=== PATIENT | male | born 1950 | race Caucasian/White ===

== ENCOUNTER 2025-03-16 14:22 | Outpatient (AMB) | payer BC, SELFPAY ==
[2025-03-16 14:35] VITALS: BP 107/70; PULSE 90; O2SAT 96; BMI 23.1
--- NOTE | 2025-03-16 14:35 | MHC.OFFVIS ---
Vital Signs 03/16/25 14:35 Height 5 ft 11 in Weight 166 lb BMI 23.1 BP 107/70 Blood Pressure Location Lt brachial Position Sitting Pulse 90 Pulse Source Pulse Oximeter Pulse Oximetry (%) 96 Oxygen Delivery Method Room Air Intake Visit Reasons: Chronic midline back pain Supervisor Felling Bucking Required: No Allergies No Known Allergies Allergy (Verified 02/22/25 14:36) HPI Comments Details: Sly is very pleasant 74 years old gentleman who presents in my office with complains on to pain generators: He complains on pain in the lower lumbar spine as well as pain in the left shoulder. She reports that pain in the back is bothering him the most. He reports that shoulder pain he received steroid injection in the office and this alleviated his pain for 1 month. His most severe pain is in the lower back and this problem he wants to address today. He reports this pain is most severe with standing and walking. Denies pain increase with coughing and sneezing. He denies pelvic organ dysfunction. He is unable to do activities of daily living, he is able to sleep normally, he can take care of himself but he can not function normally. He is retired individual. He has need walker and cane for ambulation. Movements aggravate his pain. Heat and oral medication including oxycodone helps his pain moderately. Terms of tissue damage he reports his pain as tight squeezing and tearing sensation. He had x-ray radiology report performed for the lumbar spine which was done on 10/01/2024. It demonstrated diffuse osteopenia chronic compression deformity at L2 severe compression deformity superior endplate at L1 mild superior endplate compression deformity at L3 which is likely chronic. There is also mild compression deformity of the superior endplate L5 diffuse degenerative changes are noted which are worse in the lower lumbar spine. He had chiropractic manipulations to help his pain he received minimal results. Also had acupuncture to treat his pain also results were minimal. He continues to home exercise program, he wants to try physical therapy. He never received any injections in the back. His past medical history significant for headaches shortness of breath history of lung cancer history of squamous cell carcinoma of the skin history of kidney stones. 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 Past surgical history significant for lobectomy on the left side. He stopped smoking cigarettes he used to smoke 2 packs per day, he denies drinking alcohol he drinks coffee and soda and he denies recreational drugs. Review of Systems Const All systems reviewed & are unremarkable except as noted in HPI and below ENT Reports Normal hearing present Neuro Reports Normal hearing present, Denies Abnormal speech present, Denies confusion and Denies Sensory deficit (Neuro) Psych Denies confusion Physical Exam Vital Signs: Last Vital Signs Pulse 90 03/16/25 14:35 BP 107/70 03/16/25 14:35 Pulse Ox 96 03/16/25 14:35 Oxygen Delivery Method Room Air 03/16/25 14:35 BMI result Body Mass Index 23.1 Const General: no acute distress; No confusion Nutritional Appearance: malnourished and underweight Orientation/consciousness: patient oriented x3 and No confusion Limitations: physical limitations, ambulation with cane and ambulation with walker Eyes General: appearance normal, both eyes and all related structures Pupils: Equal, round and reactive pupils present EOM: EOMs intact bilaterally Neck Neck: Yes full ROM Chest Chest palpation & inspection: normal inspection of the chest Resp Effort & Inspection: normal respiratory effort, able to speak in complete sentences, normal respiratory pattern, no audible wheezes and no cough Cardio Jugular venous distension: no JVD GI Inspection: Yes normal to inspection Back/Spine/Pelvis Other: Flexing forward and flexing backwards aggravate his pain. Flexing backwards aggravate his pain more than flexing forward. Denies pelvic organ dysfunction. Valsalva maneuver is negative for pain increase. Tenderness on palpation in paraspinal spinal region of most lower portion of the lumbar spine. Neuro General: patient oriented x3, gait normal and No confusion Cranial nerves: Yes CN's II-XII intact bilaterally, Yes Equal, round and reactive pupils present, Yes Normal hearing present and Yes Ability to bilaterally elevate shoulders present Speech: No Abnormal speech present Gait exam (Neuro): Normal gait present Motor exam (neuro): 5/5 motor strength present throughout Sensory Exam: No Sensory deficit (Neuro) Extrem General: No pedal edema Psych Speech and movement: Normal speech and movement present Affect: normal affect Attitude: cooperative Thought process: Normal thought process present Thought content: Normal thought content present Insight: Good insight present (Psych) Judgement: Good judgement present (Psych) Results Reviewed Results Reviewed: He had x-ray radiology report performed for the lumbar spine which was done on 10/01/2024. It demonstrated diffuse osteopenia chronic compression deformity at L2 severe compression deformity superior endplate at L1 mild superior endplate compression deformity at L3 which is likely chronic. There is also mild compression deformity of the superior endplate L5 diffuse degenerative changes are noted which are worse in the lower lumbar spine. Assessment & Plan Assessment & Plan (1) Compression fracture of L1 vertebra with delayed healing: Code(s): S32.010G - Wedge compression fracture of first lumbar vertebra, subsequent encounter for fracture with delayed healing Category: Medical (2) Spondylosis without myelopathy or radiculopathy, lumbar region: Code(s): M47.816 - Spondylosis without myelopathy or radiculopathy, lumbar region Category: Medical (3) Chronic pain syndrome: Code(s): G89.4 - Chronic pain syndrome Category: Medical (4) Osteoporosis: Code(s): M81.0 - Age-related osteoporosis without current pathological fracture Category: Medical Plan Spondylosis of the lumbar spine is diagnosis of this patient. I will also need to make sure that none of his compression fractures are acute. I will send him for the MRI of the lumbar spine. I will schedule him for the bilateral diagnostic medial branch block L3, L4, dorsal ramus L5. I will see him immediately after the injection and offer definitive treatment if results will be encouraging. Also because of severe advanced osteoporosis I will refer him to the endocrinology to initiate treatment for osteoporosis. Orders: Orders MR lumbar spine wo con Today M47.816 - Spondylosis without myelopathy or radiculopathy, lumbar region, S32.010G - Wedge compression fracture of first lumbar vertebra, subsequent encounter for fracture with delayed healing Referrals Endocrinology Referral M81.0 - Age-related osteoporosis without current pathological fracture Patient Instructions: I here by testify that I spent 45 minutes in conversation with this patient as well as planning his care and organizing this note. Coding Level of Care Code New Pt Level 4 (15056) Diagnoses Compression fracture of L1 vertebra with delayed healing S32.010G Spondylosis without myelopathy or radiculopathy, lumbar region M47.816 Chronic pain syndrome G89.4 Osteoporosis M81.0
--- OUTSIDE RECORDS SUMMARY | 2025-03-16 15:25 | XMS_ITS | Encounter Summary ---
Author Organization [facility] Address [address] [place] [address] Care Team Providers Care Solution Director Name Role Phone Caterina Sena MD Primary Care Provider Ben Pantoja MD Unavailable [phone] Ben Martin MD Unavailable [phone] Jason Lin MD Unavailable Sania Browning PA-C Unavailable Juan Miguel Solis PA-C Unavailable [phone] [facility] Dermatology & Laser Unavaila ble Unavailable Le Recinos DO Primary Care Provider [phone] Encounter Details Date Type Department Care Team Description 02/06/2023 Orders Only [facility] Lung Screening Program [place] [address] [facility] [address] [place] [phone] Jason Lin MD [address] [facility] [address] [place], [place] [phone] History of tobacco use, presenting hazards to health (Primary Dx); Encounter for screening for lung cancer Social History Tobacco Use Types Packs/Day Years Used Date Smoking Tobacco: Every Day Cigarettes 0.8 59 Started: 08/18/1962 Smokeless Tobacco: Never Alcohol Use Standard Drinks/Week Comments Yes 0 (1 standard drink = 0.6 oz pur e alcohol) occasionally, 2 times montyly Alcohol Habits Answer Date Recorded How often do you have a drink containing alcohol ? 2-4 times a month 08/19/2023 How many drinks containing a lcohol do you have on a typical day when you are drinking? 1 or 2 08/19/2023 How often do you have six or more drinks on one occasion? Never 08/19/2023 Social Isolation Answer Date Recorded In a typical week, how many times do you talk on the phone with family, friends, or neighbors? Once a week 08/19/2023 How often do you get together with friends or re latives? Never 08/19/2023 How often do you attend sabianist or jew serv ices? Never 08/19/2023 Do you belong to any clubs o r organizations such as sabianist groups, unions, fraternal or athletic groups, or school groups? No 08/19/2023 How often do you attend meet ings of the clubs or organizations you belong to? Never 08/19/2023 Are you now , , , , never or living with a partner? 08/19/2023 Physical Activity Answer Date Recorded On average, how many days pe r week do you engage in moderate to strenuous exercise (like walking fast, running, jogging, dancing, swimming, biking, or other activities that cause a light or heavy sweat)? 0 days 08/19/2023 On average, how many minutes do you engage in exercise at this level? 0 min 08/19/2023 Stress Answer Date Recorded Do you feel stress - tense, restless, nervous, or anxious, or unable to sleep at night because your mind is troubled all the time - these days? Not at all 08/19/2023 Financial Resource Strain Answer Date R ecorded How hard is it for you to pa y for the very basics like food, housing, medical care, and heating? Not hard at all 08/19/2023 Intimate Partner Violence Answer Date R ecorded Within the last year, have y ou been afraid of your partner or ex-partner? No 08/19/2023 Within the last year, have y ou been humiliated or emotionally abused in other ways by your partner or ex-partner? No Within the last year, have y ou been kicked, hit, slapped, or otherwise physically hurt by your partner or ex-partner? No 08/19/2023 Within the last year, have y ou been raped or forced to have any kind of sexual activity by your partner or ex-partner? No 08/19/2023 Food Insecurity Answer Date Recorded Within the past 12 months, y ou worried that your food would run out before you got money to buy more. Never true 08/19/2023 Within the past 12 months, t he food you bought just didn't last and you didn't have money to get more. Never true 08/19/2023 Transportation Needs Answer Date Record ed In the past 12 months, has l ack of transportation kept you from medical appointments or from getting medications? No 07/23 In the past 12 months, has l ack of transportation kept you from meetings, work, or getting things needed for daily living? No 08/19/2023 Housing Stability Answer Date Recorded In the last 12 months, was t here a time when you were not able to pay the mortgage or rent on time? No 08/19/2023 In the last 12 months, how many places have you lived? 1 08/19/2023 In the last 12 months, was t here a time when you did not have a steady place to sleep or slept in a m[facility]p (including now)? No 08/19/2023 Sex Assigned at Date Recorded Not on file Job Start Date Occupation Industry Not on file Not on file Not on file COVID-19 Exposure Response Date Recorded In the last 10 days, have yo u been in contact with someone who was confirmed or suspected to have Coronavirus/COVID-19? No / Unsure 01/24/2023 2:46 PM EDT documented as of this encounter Plan of Treatment Not on file documented as of this encounter Results * CT LOW DOSE LUNG SCREEN ANNUAL (03/17/2023) 03/17/[address] SCANS documented in this encounter Visit Diagnoses Diagnosis History of tobacco use, presenting hazards to health- Primary Personal history of tobacco use, presenting hazards to health Encounter for screening for lung cancer documented in this encounter Care Teams Solution Director Relationship Specialty Start Date End Date Caterina Sena MD PCP - General Family Practice 12/12/21 04/27/24 Le Recinos, DO [address] [place] [address] PCP - General Internal Medicine 04/28/24 Ben Martin MD Specialist Cardiology 03/22/22 08/18/23 Ben Martin MD Specialist Cardiology 03/22/22 Jason Lin MD Lung Cancer Hull Grinder 04/04/23 Sania Browning PA-C [address] [address] Thoracic Surgery 05/13/23 Juan Miguel Solis PA-C [address] [address] Specialist Thoracic Surgery 05/16/23 [facility] Dermatology & Laser 08/19/23 documented as of this encounter
--- OUTSIDE RECORDS SUMMARY | 2025-03-16 15:25 | XMS_ITS | Encounter Summary ---
Author Organization [facility] Address [address] [place] [address] Care Team Providers Care Speech Professor Name Role Phone JorjeLe Primary Care Provider [phone] Encounter Details Date Type Department Care Team (Late st Contact Info) Description 09/21/2024 Lab Requisition [facility] - Main Lab [address] [place] [address] Bernadine Florez MD [address] [place], [place] [phone] Unspecified atrial fibrillation (CMS/HCC V24, CMS/HCC V28) Social History Tobacco Use Types Packs/Day Years Used Date Smoking Tobacco: Former Cigarettes 2 60.8 0 08/18/1962 - 05/20/2023 Smokeless Tobacco: Never Alcohol Use Standard Drinks/Week Comments Not Currently 0 (1 standard drink = 0.6 oz pur e alcohol) Interpersonal Safety Answer Date Record ed Physical Abuse 08/29/2024 Verbal Abuse 08/29/2024 Sex and Gender Information Value Date Recorded Sex Assigned at Male 10/12/2024 11:57 AM EDT Legal Sex Male 3:08 AM EST Gender Identity Male 10/12/2024 11:57 AM EDT Sexual Orientation Not on file documented as of this encounter Plan of Treatment Upcoming Encounters Date Type Department Care Team (Late st Contact Info) Description 03/17/2025 1:30 PM EDT Anticoagulation - Warfarin Visit Coumadin Clinic - [facility] [address] [place] [address] 06/03/2025 2:45 PM EST Office Visit Internal Medicine - [facility] [address] [place] [address] Aide Linares, LEWIS [address] [place] [address] documented as of this encounter Visit Diagnoses Diagnosis Unspecified atrial fibrillation (CMS/HCC V24, CMS/HCC V28) documented in this encounter Additional Health Concerns Infection Onset Date Last Indicated Resolved Time Tuberculosis Rule-Out 01/12/2025 01/12/20252024 7:05 PM EDT documented as of this encounter Care Teams Speech Professor Relationship Specialty Start Date End Date Le Recinos DO [address] [place] [address] PCP - General 04/28/24 documented as of this encounter
--- OUTSIDE RECORDS SUMMARY | 2025-03-16 15:25 | XMS_ITS | Clinical Summary ---
Author Organization [facility] Address [address] [place] [address] Care Team Providers Care Vp Clinical Name Role Phone Caterina Sena MD Primary Care Provider Unavailable Medications Medication Sig Dispensed Refills Start Date End Date Status omeprazole (PriLOSEC) 20 MG capsule Take 1 capsule (20 mg total) by mouth daily. 0 Active buPROPion (WELLBUTRIN XL) 150 MG 24 hr tablet Take 1 tablet (150 mg total) by mouth daily. 0 Active warfarin (COUMADIN) 5 MG tablet Take 1 tablet (5 mg total) by mouth daily. 0 Active rosuvastatin (CRESTOR) tablet 5 mg Take 1 tablet (5 mg total) by mouth daily. 0 Active Ipratropium-Albuterol (COMBIVENT RESPIMAT IN) Inhale into the lungs. 0 Active Family History Medical History Relation Name Comments Esophageal cancer Father Relation Name Status Comments Father Mother Social History Tobacco Use Types Packs/Day Years Used Date Smoking Tobacco: Every Day Cigarettes 1 59 Smokeless Tobacco: Never Alcohol Use Standard Drinks/Week Comments Not Currently 0 (1 standard drink = 0.6 oz pur e alcohol) Sex and Gender Information Value Date Recorded Sex Assigned at Not on file Gender Identity Not on file Sexual Orientation Not on file Job Start Date Occupation Industry Not on file Not on file Not on file Last Filed Vital Signs Vital Sign Reading Time Taken Comments Blood Pressure 90/49 07/15/2023 1:22 PM EST Pulse 91 07/15/2023 1:22 PM EST Temperature 36.9 C (98.4 F) 04/18/2023 2:36 PM EDT Respiratory Rate - - Oxygen Saturation 96% 07/15/2023 1:22 PM EST Inhaled Oxygen Concentration - - Weight 73.9 kg (163 lb) 07/15/2023 1:22 PM EST Height 180.3 cm (5' 11 ) 07/15/2023 1:22 PM EST Body Mass Index 22.73 07/15/2023 1:22 PM EST Plan of Treatment Health Maintenance Due Date Last Done Comments Hepatitis C Screening 1950 Lung Cancer Screening (Low Dose CT) 1950 COVID-19 Vaccine (#1) 1950 Depression Screening 1962 Preventative Health Evaluation 1968 Tobacco Cessation Counseling 1968 Colon Cancer Screening (Colonoscopy) 1995 Shingrix-Zoster Vaccine (1 o f 2) 2000 Abdominal Aortic Aneurysm (AAA) Screening 2015 Fall Risk Assessment 2015 DTap / Tdap / Td (3 - Td or Tdap) 04/04/2024 04/04/2014, 12/09/2008 Influenza Vaccine (#1) 2025 , 07/05/2021 RSV Adult > 60+ Yrs or (1 - 1-dose 75+ series) 2025 Pneumococcal Vaccine Completed 11/05/2022, 2010 Hepatitis B Vaccines Aged Out No long er eligible based on patient's age to complete this topic RSV Ped < 20 months Aged Out No longe r eligible based on patient's age to complete this topic Care Teams Vp Clinical Relationship Specialty Start Date End Date Caterina Sena MD PCP - General Family Medicine 04/07/23
--- OUTSIDE RECORDS SUMMARY | 2025-03-16 15:25 | XMS_ITS | Encounter Summary ---
Author Organization [facility] Address [address] [place] [address] Care Team Providers Care Customer Acquisition Specialist Name Role Phone Toby Ortiz MD Primary Care Provider Unavail able Caterina Sena MD Primary Care Provider Ben Pantoja MD Unavailable [phone] Ben Martin MD Unavailable [phone] Jason Lin MD Unavailable Sania Browning PA-C Unavailable [phone] Juan Miguel Solis PA-C Unavailable [phone] [facility] Dermatology & Laser Unavaila ble Unavailable Le Recinos DO Primary Care Provider [phone] Encounter Details Date Type Department Care Team Description 10/02/2017 [facility] [address] [place] [address] Abstract, Provider Social History Tobacco Use Types Packs/Day Years Used Date Smoking Tobacco: Every Day Cigarettes 0.5 40 Started: 08/18/1962 Smokeless Tobacco: Never Alcohol Use [...] Never 08/19/2023 How often do you attend latter-day or orthodoxy serv ices? Never 08/19/2023 Do you belong to any clubs o r organizations such as latter-day groups, unions, fraTheCrowd or athletic groups, or school groups? No [...] place to sleep or slept in a correction (including now)? No 08/19/2023 Sex Assigned at Date Recorded Not on file Job Start Date Occupation Industry Not on file Not on file Not on file documented as of this encounter Plan of Treatment Not on file documented as of this encounter Procedures Procedure Name Priority Date/Time Associated Diagnosis Comments OUTSIDE PLAIN FILM Routine 10/02/2017 documented in this encounter Results * OUTSIDE PLAIN FILM (10/02/2017) Provider Abstract RADIOLOGY documented in this encounter Visit Diagnoses Not on filedocumented in this encounter Care Teams Customer Acquisition Specialist Relationship Specialty Start Date End Date Toby Ortiz MD PCP - General Internal Medicine 07/07/15 12/11/21 Caterina Sena MD PCP - General Family Practice 12/12/21 04/27/24 Le Recinos, [address] [place] [address] PCP - General Internal Medicine 04/28/24 Ben Martin MD Specialist Cardiology 03/22/22 08/18/23 Ben Martin MD Specialist Cardiology 03/22/22 Jason Lin MD Lung Cancer Electrical Systems Engineer 04/04/23 Sania Browning PA-C [address] [address] Thoracic Surgery 05/13/23 Juan Miguel Solis PA-C [address] [address] Specialist Thoracic Surgery 05/16/23 [facility] Dermatology & Laser 08/19/23 documented as of this encounter
--- OUTSIDE RECORDS SUMMARY | 2025-03-16 15:25 | XMS_ITS ---
Author Organization [facility] Care Team Providers Care Parking Lot Spotter Name Role Phone Genesis Lauren Unavailable Unavailable Clover Lei Unavailable Unavailable Bernadine Florez Unavailable Unavailable Jacquelyn Avina Unavailable Unavailable Mukul Connolly Unavailable Unavailable Ca Basurto Unavailable Unavailable Allergies and adverse reactions No Known Allergies Care Team Name Role Address Phone Organization Dates Bernadine Florez PCP [address], [place], [address], [place] (Office): [facility] 06/12/2023 - 06/20/2023 Genesis Lauren [address] [place], [address], [place] (Office): [facility] 06/12/2023 - 06/20/2023 Clover Lei [address], [place], [address], [place] (Office): [facility] 06/12/2023 - 06/20/2023 Jacquelyn Avina [address], [place], [address], [place] (Office): [facility] 06/12/2023 - 06/20/2023 Mukul Connolly [address] [place], [address], [facility] (Office): [facility] 06/12/2023 - 06/20/2023 Ca Basurto [address] [facility], [place], [address], [place] (Office): [facility] 06/12/2023 - 06/20/2023 Mental Status Section Date Assessment Total Score Description 06/20/2023 BIMS 15 cognitively int act CAM 0 No delirium ind icated PHQ-9 01 minimal depress ion 06/18/2023 BIMS 15 cognitively int act CAM 0 No delirium ind icated PHQ-9 01 minimal depress ion Problems Problem # Description Date of onset Resolved Date Code CodeSystem Concern Status 1 ABSCESS OF LUNG WITH PNEUMONIA 06/12/[address] active 2 ACTIVATED PROTEIN C RESISTANCE 06/12/[address] active 3 DIFFICULTY IN WALKING, NOT ELSEWHERE CLASSIFIED 06/12/[address] active 4 ESSENTIAL (PRIMARY) HYPERTENSION 06/12/[address] active 5 LOCALIZED ENLARGED LYMPH NODES 06/12/[address] active 6 MUSCLE WEAKNESS (GENERALIZED) 06/12/[address] active 7 PERSONAL HISTORY OF OTHER VENOUS THROMBOSIS AND EMBOLISM 06/12/[address] active 8 PNEUMONIA, UNSPECIFIED ORGANISM 06/12/[address] active 9 SHORTNESS OF BREATH 06/12/[address] active 10 SQUAMOUS CELL CARCINOMA OF SKIN, UNSPECIFIED 06/12/[address] active Reason for Referral No Reasons for Referral Entered Social History Social History Observation Description Start Date End Date Code Code System Current Smoking Status Tobacco smoking consumption unknown 512393741 SNOMED CT Sex Assigned At Male 1950 87225-9 [facility] Gender Identity Vital Signs Code Code System Vitals Name Values and Units Timing Information 8867-4 [facility] Heart rate Value=72.0 Units=/min 07/2022 89517-0 [facility] O2 % BldC Oximetry Value=94.0 Units= % 06/20/2023 63095-5 [facility] Pain Level Value=0.0 06/20/2023 9279-1 [facility] Respiratory Rate Value=18.0 Units=/m in 06/20/2023 8462-4 [facility] Blood Pressure-Diastolic Value=64 Un its=mmHg 06/20/2023 8480-6 [facility] Blood Pressure-Systolic Sspkn=191 Un its=mmHg 06/20/2023 8310-5 [facility] Body Temperature Value=97.3 Units= F 06/20/2023 61232-6 [facility] Weight Azxhk=068.2 Units=Lbs 8302-2 [facility] Height Value=71.0 Units=Inches 06/12/2023
--- OUTSIDE RECORDS SUMMARY | 2025-03-16 15:25 | XMS_ITS | Encounter Summary ---
Author Organization [facility] Address [address] [place] [address] Care Team Providers Care Supervisor Asphalt Paving Name Role Phone FerozLe gomes Primary Care Provider [phone] Encounter Details Date Type Department Care Team (Late st Contact Info) Description 09/20/2024 Lab Requisition [facility] - Main Lab [address] [place] [address] Bernadine Florez MD [address] [place], [place] [id number] intermediate (current) use of anticoagulants; Unspecified Escherichia coli (E. coli) as the cause of diseases classified elsewhere Social History Tobacco Use Types Packs/Day Years [...] Anticoagulation - Warfarin Visit Coumadin Clinic - [facility] [address] [place] [address] 06/03/2025 2:45 PM EST Office Visit Internal Medicine - [facility] [address] [place], [place] [phone] Aide Linares NP [address] [place] [address] documented as of this encounter Procedures Procedure Name Priority Date/Time Associated Diagnosis Comments PROTHROMBIN TIME WITH INR Routine 09/20/2024 7:20 AM EST intermediate (current) use of anticoagulants Unspecified Escherichia coli (E. coli) as the cause of diseases classified elsewhere COMPLETE BLOOD COUNT Routine 09/20/2024 7:20 AM EST intermediate (current) use of anticoagulants Unspecified Escherichia coli (E. coli) as the cause of diseases classified elsewhere COMPREHENSIVE METABOLIC PANEL Routine 09/20/2024 7:20 AM EST intermediate designer (current) use of anticoagulants Unspecified Escherichia coli (E. coli) as the cause of diseases classified elsewhere documented in this encounter Results * (ABNORMAL) Prothrombin time with INR (09/20/2024 7:20 AM EST) Protime 17.7(H) 10.6 - 13.9 sec LAB COAGULATION METHOD 09/20/2024 11:50 AM EST [facility] INR 1.4 LAB COAGULATION METHOD 09/20/2024 11:50 AM EST [facility] Blood Venous blood specimen / Unknown Venipuncture / Unknown 09/20/2024 7:20 AM EST 09/20/2024 10:54 AM EST us Bernadine Florez MD LAB BLOOD ORDERABLES Final Resul t [facility] [address] [place] [address], * (ABNORMAL) Comprehensive metabolic panel (09/20/2024 7:20 AM EST) Sodium 136 133 - 145 mmol/L LAB CHEMISTRY METHOD 09/20/2024 12:18 PM [facility] Potassium 3.9 3.5 - 5.5 mmol/L LAB CHEMISTRY METHOD 09/20/2024 12:18 PM [facility] Chloride 101 96 - 110 mmol/L LAB CHEMISTRY METHOD 09/20/2024 12:18 PM [facility] CO2 25 21 - 32 mmol/L LAB CHEMISTRY METHOD 09/20/2024 12:18 PM [facility] Anion Gap 10 3 - 11 LAB CHEMISTRY METHOD 09/20/2024 12:18 PM [facility] Glucose 99 70 - 100 mg/dL LAB CHEMISTRY METHOD 09/20/2024 12:18 PM [facility] BUN 20 5 - 25 mg/dL LAB CHEMISTRY METHOD 09/20/2024 12:18 PM [facility] Creatinine 0.81 0.70 - 1.30 mg/dL LAB CHEMISTRY METHOD 09/20/2024 12:18 PM [facility] eGFR 93 >=60 mL/min/1. 73m2 LAB CHEMISTRY METHOD 09/20/2024 12:18 PM [facility] Comment:Calculation based on the Chronic Kidney Disease Epidemiology Collaboration (CKD-EPI) equation refit without adjustment for race. BUN/Creatinine Ratio 24.7 LAB CHEMISTRY METHOD 09/20/2024 12:18 PM [facility] Calcium 9.1 8.5 - 10.5 mg/dL LAB CHEMISTRY METHOD 09/20/2024 12:18 PM [facility] AST (SGOT) 32 10 - 42 unit/L LAB CHEMISTRY METHOD 09/20/2024 12:18 PM [facility] ALT (SGPT) 28 10 - 60 unit/L LAB CHEMISTRY METHOD 09/20/2024 12:18 PM [facility] Alkaline Phosphatase 426(H) 42 - 121 unit/L LAB CHEMISTRY METHOD 09/20/2024 12:18 PM [facility] Total Protein 7.1 6.0 - 8.0 g/dL LAB CHEMISTRY METHOD 09/20/2024 12:18 PM [facility] Albumin 3.2 3.2 - 5.0 g/dL LAB CHEMISTRY METHOD 09/20/2024 12:18 PM [facility] Total Bilirubin 0.8 0.0 - 1.4 mg/dL LAB CHEMISTRY METHOD 09/20/2024 12:18 PM [facility] Blood Venous blood specimen / Unknown Venipuncture / Unknown 09/20/2024 7:20 AM EST 09/20/2024 10:54 AM EST us Bernadine Florez MD LAB BLOOD ORDERABLES Final Resul t [facility] [address] [place] [address], * (ABNORMAL) Complete blood count (09/20/2024 7:20 AM EST) WBC 8.1 4.8 - 10.8 K/mcL LAB HEMETOLOGY METHOD 09/20/2024 11:50 AM [facility] RBC 4.00(L) 4.50 - 5.50 M/mcL LAB HEMETOLOGY METHOD 09/20/2024 11:50 AM [facility] Hemoglobin 11.4(L) 13.5 - 17.5 g/dL LAB HEMETOLOGY METHOD 09/20/2024 11:50 AM EST [facility] Hematocrit 36.6(L) 42.0 - 54.0 % LAB HEMETOLOGY METHOD 09/20/2024 11:50 AM [facility] MCV 91.3 79.0 - 98.0 FL LAB HEMETOLOGY METHOD 09/20/2024 11:50 AM [facility] MCH 28.4 27.0 - 32.0 pcg LAB HEMETOLOGY METHOD 09/20/2024 11:50 AM [facility] MCHC 31.1(L) 32.0 - 37.0 g/dL LAB HEMETOLOGY METHOD 09/20/2024 11:50 AM [facility] RDW 14.5 11.0 - 15.0 % LAB HEMETOLOGY METHOD 09/20/2024 11:50 AM [facility] Platelets 263 130 - 400 K/mcL LAB HEMETOLOGY METHOD 09/20/2024 11:50 AM [facility] MPV 10.2 7.0 - 11.0 FL LAB HEMETOLOGY METHOD 09/20/2024 11:50 AM [facility] NRBC 0.0 <1.0 % LAB HEMETOLOGY METHOD 09/20/2024 11:50 AM [facility] NRBC Absolute 0.00 <0.10 K/mcL LAB HEMETOLOGY METHOD 09/20/2024 11:50 AM [facility] Blood Venous blood specimen / Unknown Venipuncture / Unknown 09/20/2024 7:20 AM EST 09/20/2024 10:54 AM EST us Bernadine Florez MD LAB BLOOD ORDERABLES Final Resul t [facility] [address] [place] [address], documented in this encounter Visit Diagnoses Diagnosis intermediate (current) use of anticoagulants Long-term (current) use of anticoagulants Unspecified Escherichia coli (E. coli) as the cause of diseases classified elsewhere documented in this encounter Additional Health Concerns Infection Onset Date Last Indicated Resolved Time Tuberculosis Rule-Out 01/12/2025 01/12/20252024 7:05 PM EDT documented as of this encounter Care Teams Supervisor Asphalt Paving Relationship Specialty Start Date End Date Le Recinos DO [address] [place] [address] PCP - General 04/28/24 documented as of this encounter
--- OUTSIDE RECORDS SUMMARY | 2025-03-16 15:25 | XMS_ITS | Encounter Summary ---
Author Organization [facility] Address [address] [place] [address] Care Team Providers Care Financial Professional Name Role Phone Toby Ortiz MD Primary Care Provider Unavail able Caterina Sena MD Primary Care Provider Ben Pantoja MD Unavailable [phone] Ben Martin MD Unavailable [phone] Jason Lin MD Unavailable Sania Browning PA-C Unavailable [phone] Juan Miguel Solis PA-C Unavailable [phone] [facility] Unavaila ble Unavailable Le Recinos DO Primary Care Provider [phone] Reason for Visit * Reason Onset Date Comments Prior Authorization 02/08/2020 Encounter Details Date Type Department Care Team Description 02/08/[address] [facility] [address] [place] [address] Angus Diaz MD Prior Authorization Social History Tobacco Use Types Packs/Day Years Used Date Smoking Tobacco: Every Day Cigarettes 0.5 45 Started: 08/18/1962 Smokeless Tobacco: Never Alcohol Use [...] Never 08/19/2023 How often do you attend moravian or yazdanism serv ices? Never 08/19/2023 Do you belong to any clubs o r organizations such as moravian groups, unions, fraternal or athletic groups, or [...] place to sleep or slept in a [place] health care facility (including now)? No 08/19/2023 Sex Assigned at Date Recorded Not on file Job Start Date Occupation Industry Not on file Not on file Not on file documented as of this encounter Miscellaneous Notes * Telephone Encounter - Lo Gordillo - 02/08/2020 9:23 AM EDT Prior Authorization for Medication-do not complete and send this encounter unless you have the fax from the pharmacy. Is this a Cover My Meds request: Yes -- [place] Code [id number] Name of Medication Amitriptyline HCI Dose of Medication 10 mg What is the RX # from the faxed refill? none How does patient take this med? 1 tab by mouth at What Pharmacy did the fax come from: [facility] Pharmacy fax #: not listed [facility] Party Information from fax: What Prescription Plan does the patient have? Medicare Advantage Pharm Dept (BS)-(fax:[phone] phone: [phone]) BIN/PCN if applicable: n/a Cardholder ID:[id number] Person Code: N/A Relationship Code: self Help desk phone: N/A documented in this encounter Plan of Treatment Not on file documented as of this encounter Visit Diagnoses Not on filedocumented in this encounter Care Teams Financial Professional Relationship Specialty Start Date End Date Toby Ortiz MD PCP - General Internal Medicine 07/07/15 12/11/21 Caterina Sena MD PCP - General Family Practice 12/12/21 04/27/24 Jorje Le, [address] [address] PCP - General Internal Medicine 04/28/24 Ben Martin MD Specialist Cardiology 03/22/22 08/18/23 Ben Martin MD Specialist Cardiology 03/22/22 Jason Lin MD Lung Cancer Chip Bin Conveyor Tender 04/04/23 Sania Browning PA-C [address] [address] Thoracic Surgery 05/13/23 Juan Miguel Solis PA-C [address] [address] Specialist Thoracic Surgery 05/16/23 [facility]ology [facility] Laser 08/19/23 documented as of this encounter
--- OUTSIDE RECORDS SUMMARY | 2025-03-16 15:25 | XMS_ITS | Encounter Summary ---
Author Organization [facility] Address [address] [place] [address] Care Team Providers Care Library Customer Service Clerk Name Role Phone JorjeLe Primary Care Provider [phone] Encounter Details Date Type Department Care Team (Late st Contact Info) Description 09/29/[address] [facility] - Main Lab [address] [place] [address] Bernadine Florez MD [address] [place], [place] [phone] Unspecified atrial fibrillation (CMS/HCC V24, CMS/HCC V28) [...] Anticoagulation - Warfarin Visit Coumadin Clinic - [facility] [address] [facility] [place] [phone] 06/03/2025 2:45 PM EST Office Visit Internal Medicine - [facility] [address] [facility] [place] [phone] Aide Linares, LEWIS [address] [place], [place] documented as of this encounter Procedures Procedure Name Priority Date/Time Associated Diagnosis Comments PROTHROMBIN TIME WITH INR Routine 09/30/2024 6:25 AM EDT Unspecified atrial fibrillation (CMS/HCC) documented in this encounter Results * (ABNORMAL) Prothrombin time with INR (09/30/2024 6:25 AM EDT) Protime 38.4(H) 10.6 - 13.9 sec LAB COAGULATION METHOD 09/30/2024 9:22 AM EDT [facility] INR 3.1 LAB COAGULATION METHOD 09/30/2024 9:22 AM EDT [facility] Blood Venous blood specimen / Unknown Venipuncture / Unknown 09/30/2024 6:25 AM EDT 09/30/2024 8:46 AM EDT us Bernadine Florez MD LAB BLOOD ORDERABLES Final Resul t [facility] [address] [place] [address], documented in this encounter Visit Diagnoses Diagnosis Unspecified atrial fibrillation (CMS/HCC V24, CMS/HCC V28) documented in this encounter Additional Health Concerns Infection Onset Date Last Indicated Resolved Time Tuberculosis Rule-Out 01/12/2025 01/12/20252024 7:05 PM EDT documented as of this encounter Care Teams Library Customer Service Clerk Relationship Specialty Start Date End Date Le Recinos DO [address] [facility] [place] [address] PCP - General 04/28/24 documented as of this encounter
--- OUTSIDE RECORDS SUMMARY | 2025-03-16 15:25 | XMS_ITS | Encounter Summary ---
Author Organization [facility] Address [address] [place] [address] Care Team Providers Care Hot Plate Plywood Press Offbearer Name Role Phone JorjeLe Primary Care Provider [phone] Encounter Details Date Type Department Care Team (Late st Contact Info) Description 09/19/2024 Lab Requisition [facility] - Main Lab [address] [place] [address] Bernadine Florez MD [address] [place], [place] [phone] Chronic embolism and thrombosis of unspecified vein Social History Tobacco Use Types Packs/Day Years [...] Anticoagulation - Warfarin Visit [facility]mad[facility] Clinic - [facility] [address] [facility] [place] [phone] 06/03/2025 2:45 PM EST Office Visit Internal Medicine - [facility] [address] [facility] [place] [phone] Aide Linares, LEWIS [address] [place], [place] documented as of this encounter Procedures Procedure Name Priority Date/Time Associated Diagnosis Comments PROTHROMBIN TIME WITH INR Routine 09/19/2024 7:48 AM EST Chronic embolism and thrombosis of unspecified vein documented in this encounter Results * (ABNORMAL) Prothrombin time with INR (09/19/2024 7:48 AM EST) Protime 27.7(H) 10.6 - 13.9 sec LAB COAGULATION METHOD 09/19/2024 9:51 AM EST [facility] INR 2.2 LAB COAGULATION METHOD 09/19/2024 9:51 AM EST [facility] Blood Venous blood specimen / Unknown Venipuncture / Unknown 09/19/2024 7:48 AM EST 09/19/2024 8:29 AM EST us Bernadine Florez MD LAB BLOOD ORDERABLES Final Resul t [facility] [address] [place] [address], documented in this encounter Visit Diagnoses Diagnosis Chronic embolism and thrombosis of unspecified vein documented in this encounter Additional Health Concerns Infection Onset Date Last Indicated Resolved Time Tuberculosis Rule-Out 01/12/2025 01/12/20252024 7:05 PM EDT documented as of this encounter Care Teams Hot Plate Plywood Press Offbearer Relationship Specialty Start Date End Date Le Recinos DO [address] [facility] [address] PCP - General 04/28/24 documented as of this encounter
--- OUTSIDE RECORDS SUMMARY | 2025-03-16 15:25 | XMS_ITS | Encounter Summary ---
Author Organization [facility] Address [address] [place] [address] Care Team Providers Care Mechanical Maintenance Supervisor Name Role Phone JorjeLe Primary Care Provider [phone] Encounter Details Date Type Department Care Team (Late st Contact Info) Description 09/22/2024 Lab Requisition [facility] - Main Lab [address] [place] [address] Bernadine Florez MD [address] [place], [place] [phone] Unspecified atrial fibrillation (CMS/HCC V24, CMS/HCC V28) [...] Anticoagulation - Warfarin Visit [facility] Clinic - [facility] [address] [facility] [place] [phone] 06/03/2025 2:45 PM EST Office Visit Internal Medicine - [facility] [address] [facility] [place] [phone] Aide Linares, LEWIS [address] [place], [place] documented as of this encounter Procedures Procedure Name Priority Date/Time Associated Diagnosis Comments PROTHROMBIN TIME WITH INR Routine 09/23/2024 6:12 AM EST Unspecified atrial fibrillation (CMS/HCC) documented in this encounter Results * (ABNORMAL) Prothrombin time with INR (09/23/2024 6:12 AM EST) Protime 17.7(H) 10.6 - 13.9 sec LAB COAGULATION METHOD 09/23/2024 9:33 AM EST [facility] INR 1.4 LAB COAGULATION METHOD 09/23/2024 9:33 AM EST [facility] Blood Venous blood specimen / Unknown Venipuncture / Unknown 09/23/2024 6:12 AM EST 09/23/2024 9:14 AM EST us Bernadine Florez MD LAB BLOOD ORDERABLES Final Resul t [facility] [address] [place] [address], documented in this encounter Visit Diagnoses Diagnosis Unspecified atrial fibrillation (CMS/HCC V24, CMS/HCC V28) documented in this encounter Additional Health Concerns Infection Onset Date Last Indicated Resolved Time Tuberculosis Rule-Out 01/12/2025 01/12/20252024 7:05 PM EDT documented as of this encounter Care Teams Mechanical Maintenance Supervisor Relationship Specialty Start Date End Date Le Recinos DO [address] [facility] [place] [address] PCP - General 04/28/24 documented as of this encounter
--- OUTSIDE RECORDS SUMMARY | 2025-03-16 15:25 | XMS_ITS | Encounter Summary ---
Author Organization [facility] Address [address] [place] [address] Care Team Providers Care Public Speaking Coach Name Role Phone Toby Ortiz MD Primary Care Provider Unavail able Caterina Sena MD Primary Care Provider Ben Pantoja MD Unavailable [phone] Ben Martin MD Unavailable [phone] Jason Lin MD Unavailable Sania Browning PA-C Unavailable [phone] Juan Miguel Solis PA-C Unavailable [phone] [facility]ermatology [facility] Unavaila ble Unavailable Le Recinos DO Primary Care Provider [phone] Encounter Details Date Type Department Care Team Description 08/05/2017 Release of Information Medical Records [address] [place] [id number] Abstract, Provider Social History Tobacco Use Types [...] Never 08/19/2023 How often do you attend anabaptist or hindu serv ices? Never 08/19/2023 Do you belong to any clubs o r organizations such as anabaptist groups, unions, fraMultigig or athletic groups, or school groups? No [...] place to sleep or slept in a skilled nursing (including now)? No 08/19/2023 Sex Assigned at Date Recorded Not on file Job Start Date Occupation Industry Not on file Not on file Not on file documented as of this encounter Plan of Treatment Not on file documented as of this encounter Visit Diagnoses Not on filedocumented in this encounter Care Teams Public Speaking Coach Relationship Specialty Start Date End Date Toby Ortiz MD PCP - General Internal Medicine 07/07/15 12/11/21 Caterina Sena MD PCP - General Family Practice 12/12/21 04/27/24 Le Recinos, [address] [address] PCP - General Internal Medicine 04/28/24 Ben Martin MD Specialist Cardiology 03/22/22 08/18/23 Ben Martin MD Specialist Cardiology 03/22/22 Jason Lin MD Lung Cancer Billing Department Supervisor 04/04/23 Sania Browning PA-C [address] [address] Thoracic Surgery 05/13/23 Juan Miguel Solis PA-C [address] [address] Specialist Thoracic Surgery 05/16/23 [facility] 08/19/23 documented as of this encounter
--- OUTSIDE RECORDS SUMMARY | 2025-03-16 15:25 | XMS_ITS | Encounter Summary ---
Author Organization [facility] Address [address] [place] [address] Care Team Providers Care Corporate Events Director Name Role Phone JorjeLe Primary Care Provider Encounter Details Date Type Department Care Team (Late st Contact Info) Description 09/26/2024 Lab Requisition [facility] - Main Lab [address] [place] [address] Bernadine Florez MD [address] [place], [place] [id number] Other malaise; Unspecified atrial fibrillation (CMS/HCC V24, CMS/HCC V28) [...] Anticoagulation - Warfarin Visit Coumadin Clinic - [facility] [address] [place] [address] 06/03/2025 2:45 PM EST Office Visit Internal Medicine - [facility] [address] [place], [place] [phone] Aide Linares, LEWIS [address] [place] [address] documented as of this encounter Procedures Procedure Name Priority Date/Time Associated Diagnosis Comments PROTHROMBIN TIME WITH INR Routine 09/27/2024 7:16 AM EDT Other malaise Unspecified atrial fibrillation (CMS/HCC) COMPLETE BLOOD COUNT Routine 09/27/2024 7:16 AM EDT Other malaise Unspecified atrial fibrillation (CMS/HCC) BASIC METABOLIC PANEL Routine 09/27/2024 7:16 AM EDT Other malaise Unspecified atrial fibrillation (CMS/HCC) documented in this encounter Results * (ABNORMAL) Prothrombin time with INR (09/27/2024 7:16 AM EDT) Protime 36.5(H) 10.6 - 13.9 sec LAB COAGULATION METHOD 09/27/2024 9:54 AM EDT [facility] INR 3.0 LAB COAGULATION METHOD 09/27/2024 9:54 AM EDT [facility] Blood Venous blood specimen / Unknown Venipuncture / Unknown 09/27/2024 7:16 AM EDT 09/27/2024 9:30 AM EDT Bernadine Florez MD LAB BLOOD ORDERABLES Final Resul t [facility] [address] [place] [address], * Basic metabolic panel (09/27/2024 7:16 AM EDT) Sodium 136 133 - 145 mmol/L LAB CHEMISTRY METHOD 09/27/2024 10:08 AM [facility] Potassium 4.4 3.5 - 5.5 mmol/L LAB CHEMISTRY METHOD 09/27/2024 10:08 AM [facility] Chloride 103 96 - 110 mmol/L LAB CHEMISTRY METHOD 09/27/2024 10:08 AM [facility] CO2 25 21 - 32 mmol/L LAB CHEMISTRY METHOD 09/27/2024 10:08 AM [facility] Anion Gap 8 3 - 11 LAB CHEMISTRY METHOD 09/27/2024 10:08 AM [facility] Glucose 99 70 - 100 mg/dL LAB CHEMISTRY METHOD 09/27/2024 10:08 AM [facility] BUN 25 5 - 25 mg/dL LAB CHEMISTRY METHOD 09/27/2024 10:08 AM [facility] Creatinine 0.97 0.70 - 1.30 mg/dL LAB CHEMISTRY METHOD 09/27/2024 10:08 AM [facility] eGFR 82 >=60 mL/min/1. 73m2 LAB CHEMISTRY METHOD 09/27/2024 10:08 AM [facility] Comment:Calculation based on the Chronic Kidney Disease Epidemiology Collaboration (CKD-EPI) equation refit without adjustment for race. BUN/Creatinine Ratio 25.8 LAB CHEMISTRY METHOD 09/27/2024 10:08 AM [facility] Calcium 9.5 8.5 - 10.5 mg/dL LAB CHEMISTRY METHOD 09/27/2024 10:08 AM [facility] Blood Venous blood specimen / Unknown Venipuncture / Unknown 09/27/2024 7:16 AM EDT 09/27/2024 9:16 AM EDT us Bernadine Florez MD LAB BLOOD ORDERABLES Final Resul t [facility] [address] [place] [address], * (ABNORMAL) Complete blood count (09/27/2024 7:16 AM EDT) [facility] Signature WBC 6.6 4.8 - 10.8 K/mcL LAB HEMETOLOGY METHOD 09/27/2024 9:39 AM [facility] RBC 4.20(L) 4.50 - 5.50 M/mcL LAB HEMETOLOGY METHOD 09/27/2024 9:39 AM [facility] Hemoglobin 11.9(L) 13.5 - 17.5 g/dL LAB HEMETOLOGY METHOD 09/27/2024 9:39 AM [facility] Hematocrit 38.0(L) 42.0 - 54.0 % LAB HEMETOLOGY METHOD 09/27/2024 9:39 AM [facility] MCV 90.3 79.0 - 98.0 FL LAB HEMETOLOGY METHOD 09/27/2024 9:39 AM [facility] MCH 28.3 27.0 - 32.0 pcg LAB HEMETOLOGY METHOD 09/27/2024 9:39 AM [facility] MCHC 31.3(L) 32.0 - 37.0 g/dL LAB HEMETOLOGY METHOD 09/27/2024 9:39 AM [facility] RDW 14.3 11.0 - 15.0 % LAB HEMETOLOGY METHOD 09/27/2024 9:39 AM [facility] Platelets 292 130 - 400 K/mcL LAB HEMETOLOGY METHOD 09/27/2024 9:39 AM EDT [facility] MPV 10.1 7.0 - 11.0 FL LAB HEMETOLOGY METHOD 09/27/2024 9:39 AM EDT [facility] NRBC 0.0 <1.0 % LAB HEMETOLOGY METHOD 09/27/2024 9:39 AM EDT [facility] NRBC Absolute 0.00 <0.10 K/[facility] LAB HEMETOLOGY METHOD 09/27/2024 9:39 AM EDT [facility] Blood Venous blood specimen / Unknown Venipuncture / Unknown 09/27/2024 7:16 AM EDT 09/27/2024 9:26 AM EDT us Bernadine Florez MD LAB BLOOD ORDERABLES Final Resul t [facility] [address] [place] [address], documented in this encounter Visit Diagnoses Diagnosis Other malaise Unspecified atrial fibrillation (CMS/HCC V24, CMS/HCC V28) documented in this encounter Additional Health Concerns Infection Onset Date Last Indicated Resolved Time Tuberculosis Rule-Out 01/12/2025 01/12/20252024 7:05 PM EDT documented as of this encounter Care Teams Corporate Events Director Relationship Specialty Start Date End Date Le Recinos DO [address] [place] [address] PCP - General 04/28/24 documented as of this encounter
--- OUTSIDE RECORDS SUMMARY | 2025-03-16 15:25 | XMS_ITS | Encounter Summary ---
Author Organization [facility] Address [address] [place] [address] Care Team Providers Care Lawn Care Specialist Name Role Phone JorjeLe Primary Care Provider [phone] Encounter Details Date Type Department Care Team (Late st Contact Info) Description 09/23/2024 Lab Requisition [facility] - Main Lab [address] [place] [address] Bernadine Florez MD [address] [place], [place] [phone] Unspecified atrial fibrillation (CMS/HCC V24, CMS/HCC V28) [...] Warfarin Visit [facility] - [facility] [address] [facility] [place] [phone] 06/03/2025 2:45 PM EST Office Visit Internal Medicine - [facility] [address] [facility] [place] [phone] Aide Linares, LEWIS [address] [place], [place] documented as of this encounter Procedures Procedure Name Priority Date/Time Associated Diagnosis Comments PROTHROMBIN TIME WITH INR Routine 09/24/2024 7:47 AM EST Unspecified atrial fibrillation (CMS/HCC) documented in this encounter Results * (ABNORMAL) Prothrombin time with INR (09/24/2024 7:47 AM EST) Protime 18.4(H) 10.6 - 13.9 sec LAB COAGULATION METHOD 09/24/2024 11:18 AM EST [facility] INR 1.5 LAB COAGULATION METHOD 09/24/2024 11:18 AM EST [facility] Blood Venous blood specimen / Unknown Venipuncture / Unknown 09/24/2024 7:47 AM EST 09/24/2024 10:33 AM EST us Bernadine Florez MD LAB BLOOD ORDERABLES Final Resul t [facility] [address] [place] [address], documented in this encounter Visit Diagnoses Diagnosis Unspecified atrial fibrillation (CMS/HCC V24, CMS/HCC V28) documented in this encounter Additional Health Concerns Infection Onset Date Last Indicated Resolved Time Tuberculosis Rule-Out 01/12/2025 01/12/20252024 7:05 PM EDT documented as of this encounter Care Teams Lawn Care Specialist Relationship Specialty Start Date End Date Le Recinos DO [address] [facility] [place] [address] PCP - General 04/28/24 documented as of this encounter
--- OUTSIDE RECORDS SUMMARY | 2025-03-16 15:25 | XMS_ITS | Encounter Summary ---
Author Organization [facility] Address [address] [place] [address] Care Team Providers Care Driver Supervisor Name Role Phone JorjeLe Primary Care Provider [phone] Encounter Details Date Type Department Care Team (Late st Contact Info) Description 10/01/2024 Lab Requisition [facility] - Main Lab [address] [place] [address] Bernadine Florez MD [address] [place], [place] [phone] Other malaise; Unspecified atrial fibrillation (CMS/HCC V24, [...] Anticoagulation - Warfarin Visit Coumadin Clinic - [address] [place] [address] 06/03/2025 2:45 PM EST Office Visit Internal Medicine - [facility] [address] [place] [address] Aide Linares, LEWIS [address] [place] [address] documented as of this encounter Visit Diagnoses Diagnosis Other malaise Unspecified atrial fibrillation (CMS/HCC V24, CMS/HCC V28) documented in this encounter Additional Health Concerns Infection Onset Date Last Indicated Resolved Time Tuberculosis Rule-Out 01/12/2025 01/12/20252024 7:05 PM EDT documented as of this encounter Care Teams Driver Supervisor Relationship Specialty Start Date End Date Le Recinos DO [address] [place] [address] PCP - General 04/28/24 documented as of this encounter
--- OUTSIDE RECORDS SUMMARY | 2025-03-16 15:25 | XMS_ITS | Encounter Summary ---
Author Organization [facility] Address [address] [place] [address] Care Team Providers Care Validation Specialist Name Role Phone Toby Ortiz MD Primary Care Provider Unavail able Caterina Sena MD Primary Care Provider Ben Pantoja MD Unavailable [phone] Ben Martin MD Unavailable [phone] Jason Lin MD Unavailable Sania Browning PA-C Unavailable Juan Miguel Solis PA-C Unavailable [phone] [facility] Unavaila ble Unavailable Le Recinos DO Primary Care Provider [phone] Encounter Details Date Type Department Care Team Description 10/12/2017 Hospital Medical Records [address] [place] [address] Social History Tobacco Use Types Packs/Day Years Used Date Smoking Tobacco: Former Cigarettes 2 59 0 08/18/1962 - 05/20/2023 Smokeless Tobacco: Never Alcohol Use Standard Drinks/Week Comments Not Currently 0 (1 standard drink = 0.6 oz pure alcohol) occasionally, 2 times montyly Alcohol Habits [...] Never 08/19/2023 How often do you attend methodist or episcopal serv ices? Never 08/19/2023 Do you belong to any clubs o r organizations such as methodist groups, unions, fraWTFast or athletic groups, or school groups? No [...] place to sleep or slept in a assisted (including now)? No 08/19/2023 Sex Assigned at Date Recorded Not on file Job Start Date Occupation Industry Not on file Not on file Not on file documented as of this encounter Plan of Treatment Not on file documented as of this encounter Visit Diagnoses Not on filedocumented in this encounter Care Teams Validation Specialist Relationship Specialty Start Date End Date Toby Ortiz MD PCP - General Internal Medicine 07/07/15 12/11/21 Caterina Sena MD PCP - General Family Practice 12/12/21 04/27/24 Le Recinos, [address] [address] PCP - General Internal Medicine 04/28/24 Ben Martin MD Specialist Cardiology 03/22/22 08/18/23 Ben Martin MD Specialist Cardiology 03/22/22 Jason Lin MD Lung Cancer Sewing Machine Assembler 04/04/23 Sania Browning PA-C [address] [address] Thoracic Surgery 05/13/23 Juan Miguel Solis PA-C [address] [address] Specialist Thoracic Surgery 05/16/23 [facility] 08/19/23 documented as of this encounter
--- OUTSIDE RECORDS SUMMARY | 2025-03-16 15:25 | XMS_ITS | Encounter Summary ---
Author Organization [facility] Address [address] [place] [address] Care Team Providers Care Ultrasound Technician Name Role Phone Caterina Sena MD Primary Care Provider Ben Pantoja MD Unavailable [phone] Ben Martin MD Unavailable [phone] Jason Lin MD Unavailable Sania Browning PASydnee Unavailable [phone] Juan Miguel Solis-Ellis Unavailable [facility] Unavaila ble Unavailable Le Recinos DO Primary Care Provider [phone] Reason for Visit * Reason Onset Date Comments Testing 02/21/2023 CT chest Encounter Details Date Type Department Care Team Description 02/21/2023 Telephone Cardio PVC POC [address] [place] [address] Ben Martin MD [address] [place], [place] [phone] Testing (CT chest) Social History Tobacco Use Types Packs/Day Years [...] Never 08/19/2023 How often do you attend uatsdin or orthodox serv ices? Never 08/19/2023 Do you belong to any clubs o r organizations such as uatsdin groups, unions, fraternal or athletic groups, or [...] place to sleep or slept in a senior care (including now)? No 08/19/2023 Sex Assigned at Date Recorded Not on file Job Start Date Occupation Industry Not on file Not on file Not on file COVID-19 Exposure Response Date Recorded In the last 10 days, have yo u been in contact with someone who was confirmed or suspected to have Coronavirus/COVID-19? No / Unsure 02/13/2023 3:39 PM EDT documented as of this encounter Miscellaneous Notes * Telephone Encounter - Claudine Hector L.P.N. - 04/07/2023 11:[address] Lin would like Porsche Rufino to have a risk assessment prior to his upcoming surgery for a surgical wedge resection and possible lobectomy in early April. Please schedule. Thank you. * Telephone Encounter - Ellen Rivas - 02/24/2023 7:41 AM EDT [address] [facility] auth # [id number] Valid 02/24/23-04/24/23 [facility] * Telephone Encounter - Hetal Peterson C.M.A. - 02/21/2023 3:08 PM EDT This was scheduled by PCP: Sly Joy was contacted by the Lung Cancer Screening Program today to notify them that their Lung Cancer Screening CT scan has been scheduled. The patient is currently scheduled to have their LDCT appointment on Friday, March 17, 2023 at 2:00PM at [facility]. Patient confirmed. ??You ordered a CTA chest for TAA do you want us to see if the insurance irene auth both? documented in this encounter Plan of Treatment Not on file documented as of this encounter Visit Diagnoses Not on filedocumented in this encounter Care Teams Ultrasound Technician Relationship Specialty Start Date End Date Caterina Sena MD PCP - General Family Practice 12/12/21 04/27/24 Le Recinos, DO [address] [place] [address] PCP - General Internal Medicine 04/28/24 Ben Martin MD Specialist Cardiology 03/22/22 08/18/23 Ben Martin MD Specialist Cardiology 03/22/22 Jason Lin MD Lung Cancer Ice Cream Shop Associate 04/04/23 Sania Browning PA-C [address] [place] [address] Thoracic Surgery 05/13/23 Juan Miguel Solis PA-C [address] [place] [address] Specialist Thoracic Surgery 05/16/23 [facility] 08/19/23 documented as of this encounter
--- OUTSIDE RECORDS SUMMARY | 2025-03-16 15:25 | XMS_ITS | Encounter Summary ---
Author Organization [facility] Address [address] [place] [address] Care Team Providers Care Tab Cutter Name Role Phone JorjeLe Primary Care Provider [phone] Encounter Details Date Type Department Care Team (Late st Contact Info) Description 09/21/2024 Lab Requisition [facility] - Main Lab [address] [place] [address] [facility] Connolly [facility] [address] [facility] [address] [place] [address] Unspecified atrial fibrillation (CMS/HCC V24, CMS/HCC V28) [...] Anticoagulation - Warfarin Visit Coumadin Clinic - [facility] [address] [facility] [place] [phone] 06/03/2025 2:45 PM EST Office Visit Internal Medicine - [facility] [address] [facility] [place] [phone] Aide Linares, LEWIS [address] [place], [place] documented as of this encounter Procedures Procedure Name Priority Date/Time Associated Diagnosis Comments PROTHROMBIN TIME WITH INR Routine 09/21/2024 8:38 AM EST Unspecified atrial fibrillation (CMS/HCC) documented in this encounter Results * (ABNORMAL) Prothrombin time with INR (09/21/2024 8:38 AM EST) Protime 15.8(H) 10.6 - 13.9 sec LAB COAGULATION METHOD 09/21/2024 11:25 AM EST [facility] INR 1.3 LAB COAGULATION METHOD 09/21/2024 11:25 AM EST [facility] Blood Venous blood specimen / Unknown Venipuncture / Unknown 09/21/2024 8:38 AM EST 09/21/2024 10:37 AM EST us Mukul TREJO LAB BLOOD ORDERABLES Belinda l Result [facility] [address] [place] [address], documented in this encounter Visit Diagnoses Diagnosis Unspecified atrial fibrillation (CMS/HCC V24, CMS/HCC V28) documented in this encounter Additional Health Concerns Infection Onset Date Last Indicated Resolved Time Tuberculosis Rule-Out 01/12/2025 01/12/20252024 7:05 PM EDT documented as of this encounter Care Teams Tab Cutter Relationship Specialty Start Date End Date Le Recinos DO [address] [facility] [place] [address] PCP - General 04/28/24 documented as of this encounter
--- OUTSIDE RECORDS SUMMARY | 2025-03-16 15:25 | XMS_ITS | Encounter Summary ---
Author Organization [facility] Address [address] [place] [address] Care Team Providers Care Vice President Of Software Engineering Name Role Phone Caterina Sena MD Primary Care Provider Ben Pantoja MD Unavailable [phone] Ben Martin MD Unavailable [phone] Jason Lin MD Unavailable Sania Browning PA-C Unavailable Juan Miguel Solis-Ellis Unavailable [facility] Unavaila ble Unavailable Le Recinos DO Primary Care Provider [phone] Reason for Visit * Reason Onset Date Comments APPOINTMENT 05/17/2022 Pt came late to appt. Encounter Details Date Type Department Care Team Description 05/17/2022 Telephone Cardio PVCA Diag Testing [address] [place] [address] Ben Martin MD [address] [place] [address] APPOINTMENT (Pt came late to appt. ) Social History Tobacco Use Types Packs/Day Years [...] Never 08/19/2023 How often do you attend christianity or judaism serv ices? Never 08/19/2023 Do you belong to any clubs o r organizations such as christianity groups, unions, fraternal or athletic groups, or [...] place to sleep or slept in a long-term (including now)? No 08/19/2023 Sex Assigned at Date Recorded Not on file Job Start Date Occupation Industry Not on file Not on file Not on file COVID-19 Exposure Response Date Recorded In the last 10 days, have yo u been in contact with someone who was confirmed or suspected to have Coronavirus/COVID-19? No / Unsure 05/16/2022 3:27 PM EDT documented as of this encounter Miscellaneous Notes * Telephone Encounter - Debi Oneill - 05/17/2022 3:25 PM EDT Pt came an hour late to his appointment. He said the phone message said 3:30 and his paperwork. I told him it was scheduled for 2:30pm.Pt was upset turned around and walked away as I was asking him if he wanted me to check with Dr and or make new appt. documented in this encounter Plan of Treatment Not on file documented as of this encounter Visit Diagnoses Not on filedocumented in this encounter Care Teams Vice President Of Software Engineering Relationship Specialty Start Date End Date Caterina Sena MD PCP - General Family Practice 12/12/21 04/27/24 Le Recinos, [address] [address] PCP - General Internal Medicine 04/28/24 Ben Martin MD Specialist Cardiology 03/22/22 08/18/23 Ben Martin MD Specialist Cardiology 03/22/22 Jason Lin MD Lung Cancer Award Machine Operator 04/04/23 Sania Browning PA-C [address] [phone] Thoracic Surgery 05/13/23 Juan Miguel Solis PA-C [address] [phone] Specialist Thoracic Surgery 05/16/23 [facility] 08/19/23 documented as of this encounter
--- OUTSIDE RECORDS SUMMARY | 2025-03-16 15:25 | XMS_ITS | Encounter Summary ---
Author Organization [facility] Address [address] [place] [address] Care Team Providers Care Ocean Lifeguard Name Role Phone Caterina Sena MD Primary Care Provider Ben Pantoja MD Unavailable [phone] Jason Lin MD Unavailable Sania Browning PA-C Unavailable [phone] Juan Miguel Solis PA-C Unavailable [facility] Derm[facility]ology [facility] Unavaila ble Unavailable Le Recinos DO Primary Care Provider Encounter Details Date Type Department Care Team Description 03/29/2024 Orders Only [facility] Thoracic Surgery [place] [address] [facility] [address] [place] [address] Juan Miguel Solis PA-C [address] [facility] [address] [place] [phone] History of lung cancer; Acute cough Social History Tobacco Use Types Packs/Day Years [...] Never 08/19/2023 How often do you attend nondenominational or islam serv ices? Never 08/19/2023 Do you belong to any clubs o r organizations such as nondenominational groups, unions, fraternal or athletic groups, or [...] place to sleep or slept in a fdc (including now)? No 08/19/2023 Sex Assigned at Date Recorded Not on file Job Start Date Occupation Industry Not on file Not on file Not on file documented as of this encounter Plan of Treatment Not on file documented as of this encounter Procedures Procedure Name Priority Date/Time Associated Diagnosis Comments CAT SCAN OF CHEST NO CONTRAST Routine 03/29/2024 History of lung cancer Acute cough documented in this encounter Results * CAT SCAN OF CHEST NO CONTRAST (03/29/2024) Juan Miguel Solis PA-C CT SCANS [facility] documented in this encounter Visit Diagnoses Diagnosis History of lung cancer Personal history of malignant neoplasm of bronchus and lung Acute cough documented in this encounter Care Teams Ocean Lifeguard Relationship Specialty Start Date End Date Caterina Sena MD PCP - General Family Practice 12/12/21 04/27/24 Le Recinos DO [address] [place] [address] PCP - General Internal Medicine 04/28/24 Ben Martin MD Specialist Cardiology 03/22/22 Jason Lin MD Lung Cancer Retail Route Supervisor 04/04/23 Sania Browning PA-C [address] [place] [phone] Thoracic Surgery 05/13/23 Juan Miguel Solis PA-C [address] [address] Specialist Thoracic Surgery 05/16/23 [facility] 08/19/23 documented as of this encounter
--- OUTSIDE RECORDS SUMMARY | 2025-03-16 15:25 | XMS_ITS | Encounter Summary ---
Author Organization [facility] Address [address] [place] [address] Care Team Providers Care Gas Attendant Name Role Phone Toby Ortiz MD Primary Care Provider Unavail able Caterina Sena MD Primary Care Provider Ben Pantoja MD Unavailable [phone] Ben Martin MD Unavailable [phone] Jason Lin MD Unavailable Sania Browning PA-C Unavailable [phone] Juan Miguel Solis PA-C Unavailable [phone] [facility] Dermatology & Laser Unavaila ble Unavailable Le Recinos DO Primary Care Provider [phone] Encounter Details Date Type Department Care Team Description 10/10/2017 SCAN Medical Records [address] [place] [address] Abstract, Provider Social History Tobacco Use Types Packs/Day Years Used Date Smoking Tobacco: Former Cigarettes 0.5 40 0 08/18/1962 - 09/26/2017 Smokeless Tobacco: Never Alcohol Use Standard Drinks/Week [...] Never 08/19/2023 How often do you attend tenriism or restorationist serv ices? Never 08/19/2023 Do you belong to any clubs o r organizations such as tenriism groups, unions, frafitkit or athletic groups, or school groups? No [...] place to sleep or slept in a custodial (including now)? No 08/19/2023 Sex Assigned at Date Recorded Not on file Job Start Date Occupation Industry Not on file Not on file Not on file documented as of this encounter Plan of Treatment Not on file documented as of this encounter Procedures Procedure Name Priority Date/Time Associated Diagnosis Comments OUTSIDE CT Routine 10/10/2017 documented in this encounter Results * OUTSIDE CT (10/10/2017) Provider Abstract RADIOLOGY documented in this encounter Visit Diagnoses Not on filedocumented in this encounter Care Teams Gas Attendant Relationship Specialty Start Date End Date Toby Ortiz MD PCP - General Internal Medicine 07/07/15 12/11/21 Caterina Sena MD PCP - General Family Practice 12/12/21 04/27/24 Le Recinos, [address] [place] [address] PCP - General Internal Medicine 04/28/24 Ben Martin MD Specialist Cardiology 03/22/22 08/18/23 Ben Martin MD Specialist Cardiology 03/22/22 Jason Lin MD Lung Cancer Regulated Program Manager 04/04/23 Sania Browning PA-C [address] [address] Thoracic Surgery 05/13/23 Juan Miguel Solis PA-C [address] [address] Specialist Thoracic Surgery 05/16/23 [facility] Dermatology & Laser 08/19/23 documented as of this encounter
--- OUTSIDE RECORDS SUMMARY | 2025-03-16 15:25 | XMS_ITS | Encounter Summary ---
Author Organization [facility] Address [address] [place] [address] Care Team Providers Care Acid Extractor Name Role Phone FerozLe gomes Primary Care Provider [phone] Encounter Details Date Type Department Care Team (Late st Contact Info) Description 10/06/2024 Lab Requisition [facility] - Main Lab [address] [place] [address] Bernadine Florez MD [address] [place], [place] [id number] Essential (primary) hypertension; exterminator helper termite (current) use of anticoagulants; Chronic obstructive pulmonary disease, unspecified (CMS/HCC V24, CMS/HCC V28) Social History Tobacco [...] Anticoagulation - Warfarin Visit [facility] - [address] [address] 06/03/2025 2:45 PM EST Office Visit Internal Medicine - [facility] [address] [facility] [address] Aide Linares, LEWIS [address] [place] [address] documented as of this encounter Procedures Procedure Name Priority Date/Time Associated Diagnosis Comments PROTHROMBIN TIME WITH INR Routine 10/06/2024 8:29 AM EDT Essential (primary) hypertension 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 Chronic obstructive pulmonary disease, unspecified (CMS/HCC) COMPLETE BLOOD COUNT Routine 10/06/2024 8:29 AM EDT Essential (primary) hypertension 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 Chronic obstructive pulmonary disease, unspecified (CMS/HCC) BASIC METABOLIC PANEL Routine 10/06/2024 8:29 AM EDT Essential (primary) hypertension exterminator helper termite (current) use of anticoagulants Chronic obstructive pulmonary disease, unspecified (CMS/HCC) documented in this encounter Results * (ABNORMAL) Basic metabolic panel (10/06/2024 8:29 AM EDT) Sodium 137 133 - 145 mmol/L LAB CHEMISTRY METHOD 10/06/2024 1:22 PM EDT [facility] Potassium 4.4 3.5 - 5.5 mmol/L LAB CHEMISTRY METHOD 10/06/2024 1:22 PM T [facility] Chloride 106 96 - 110 mmol/L LAB CHEMISTRY METHOD 10/06/2024 1:22 PM EDT [facility] CO2 21 21 - 32 mmol/L LAB CHEMISTRY METHOD 10/06/2024 1:22 PM EDT [facility] Anion Gap 10 3 - 11 LAB [facility] Glucose 116(H) 70 - 100 mg/dL LAB CHEMISTRY METHOD 10/06/2024 1:22 PM EDT [facility] BUN 12 5 - 25 mg/dL LAB CHEMISTRY METHOD 10/06/2024 1:22 PM [facility] Creatinine 0.84 0.70 - 1.30 mg/dL LAB CHEMISTRY METHOD 10/06/2024 1:22 PM [facility] eGFR 92 >=60 mL/min/1. 73m2 LAB CHEMISTRY METHOD 10/06/2024 1:22 PM [facility] Comment:Calculation based on the Chronic Kidney Disease Epidemiology Collaboration (CKD-EPI) equation refit without adjustment for race. BUN/Creatinine Ratio 14.3 LAB CHEMISTRY METHOD 10/06/2024 1:22 PM [facility] Calcium 8.8 8.5 - 10.5 mg/dL LAB CHEMISTRY METHOD 10/06/2024 1:22 PM [facility] Blood Venous blood specimen / Unknown Venipuncture / Unknown 10/06/2024 8:29 AM EDT 10/06/2024 10:25 AM EDT us Bernadine Florez MD LAB BLOOD ORDERABLES Final Resul t [facility] [address] [place] [address], * (ABNORMAL) Prothrombin time with INR (10/06/2024 8:29 AM EDT) Protime 46.4(H) 10.6 - 13.9 sec LAB COAGULATION METHOD 10/06/2024 12:04 PM EDT [facility] INR 3.8 LAB COAGULATION METHOD 10/06/2024 12:04 PM EDT [facility] Blood Venous blood specimen / Unknown Venipuncture / Unknown 10/06/2024 8:29 AM EDT 10/06/2024 10:25 AM EDT us Bernadine Florez MD LAB BLOOD ORDERABLES Final Resul t [facility] [address] [place] [address], * (ABNORMAL) Complete blood count (10/06/2024 8:29 AM EDT) WBC 7.8 4.8 - 10.8 K/mcL LAB HEMETOLOGY METHOD 10/06/2024 11:56 AM [facility] RBC 4.30(L) 4.50 - 5.50 M/mcL LAB HEMETOLOGY METHOD 10/06/2024 11:56 AM [facility] Hemoglobin 12.2(L) 13.5 - 17.5 g/dL LAB HEMETOLOGY METHOD 10/06/2024 11:56 AM [facility] Hematocrit 37.6(L) 42.0 - 54.0 % LAB HEMETOLOGY METHOD 10/06/2024 11:56 AM EDT [facility] MCV 87.4 79.0 - 98.0 FL LAB HEMETOLOGY METHOD 10/06[facility]2024 [facility] MCH 28.4 27.0 - 32.0 pcg LAB HEMETOLOGY METHOD 10/06/2024 11:56 AM [facility] MCHC 32.4 32.0 - 37.0 g/dL LAB HEMETOLOGY METHOD 10/06/2024 11:[facility] RDW 14.1 11.0 - 15.0 % LAB HEMETOLOGY METHOD 10/06/2024 11:56 AM EDT [facility] Platelets 259 130 - 400 K/mcL LAB HEMETOLOGY METHOD 10/06/2024 11:56 AM EDT [facility] MPV 10.5 7.0 - 11.0 FL LAB HEMETOLOGY METHOD 10/06/2024 11:56 AM EDT [facility] NRBC 0.0 <1.0 % LAB HEMETOLOGY METHOD 10/06/2024 11:56 AM EDT [facility] NRBC Absolute 0.00 <0.10 K/mcL LAB HEMETOLOGY METHOD 10/06/2024 11:56 AM EDT [facility] Blood Venous blood specimen / Unknown Venipuncture / Unknown 10/06/2024 8:29 AM EDT 10/06/2024 10:25 AM EDT us Bernadine Florez MD LAB BLOOD ORDERABLES Final Resul t [facility] [address] [place] [address], documented in this encounter Visit Diagnoses Diagnosis Essential (primary) hypertension Unspecified essential hypertension 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
--- OUTSIDE RECORDS SUMMARY | 2025-03-16 15:25 | XMS_ITS ---
Author Organization [place] [address] [address] [facility] Address [address] [place] [address] Phone Care Team Providers Care Manager Loan Name Role Phone Le Recinos DO Primary Care Provider [phone] Active Problems Problem Noted Date Diagnosed Date Chronic midline back pain 02/10/2025 Hemoptysis 03/17/2024 Overview (05/31/2024): Last Assessment & Plan: I did discuss his imaging findings and the results of his bronchoscopy. On bronchoscopy I saw no abnormalities his stump looked good and there was no evidence of recent bleeding and no active bleeding. Washings taken were negative on cytology and negative microbiology. My recommendation is to continue surveillance at this point in time with a 6-month follow-up CT scan of the chest and a visit in this office after that. All questions were answered. He is not currently having any hemoptysis. Benign prostatic hyperplasia with weak urinary s tream 11/18/2023 Cough 11/06/2023 Overview (05/31/2024): Last Assessment & Plan: His previous lung consolidation has greatly improved and there is a very small tree-in-bud nodularity which represents a mild infectious process. He does complain of increased cough with some blood-tinged sputum and based off of his symptoms as well as his chest CT scan results I will be prescribing a Z-Savage. Squamous cell carcinoma lung , left (CMS/[facility] V24, CMS/[facility] V28) 06/30/2023 Overview (05/31/2024): 04/30/2023 status post robotic left upper lobe superior segmentectomy and mediastinal lymphadenectomy for stage Ia squamous cell carcinoma Diarrhea 06/29/2023 Overview (05/31/2024): Last Assessment & Plan: Has had intermittent diarrhea after administration of Augmentin. Will prescribe probiotic align. Insomnia 06/29/2023 Overview (05/31/2024): Last Assessment & Plan: Has had insomnia due to persistent coughing was instructed to continue with Delsym tablets for his cough and prescribed melatonin 3 mg nightly Pneumonia 06/29/2023 Overview (05/31/2024): Last Assessment & Plan: Was recently hospitalized with pneumonia which per recent chest x-ray and clinical status appears to have resolved. Is finished his course of antibiotics instructed to follow-up with thoracic surgery department in 6 months with a chest CT scan for surveillance of his lung carcinoma. Adult failure to thrive 06/02/2023 Overview (05/31/2024): Last Assessment & Plan: Mr. Joy is a 73-year-old male who is s/p a robotic left upper segmentectomy and mediastinal lymphadenectomy for stage I squamous cell carcinoma on April 30, 2023. He returned to the thoracic surgical department and was subsequently hospitalized approximately 1 month ago for left-sided cavitary pneumonia then discharged to a rehab facility and has been working with PT and OT after being discharged from rehab. He continues to have low appetite and will be providing him a prescription of dronabinol 2.5 mg twice daily for appetite stimulation. He was encouraged to continue to drink Ensure or boost protein drinks approximately 3/day to try to increase his p.o. intake. Pulmonary nodule 04/04/2023 Overview (05/31/2024): Last Assessment & Plan: 72-year-old man with factor V Leiden disease and enlarging pulmonary nodule in the left upper lobe. I had a discussion with him about the findings on his CAT scan which she seemed understand. I explained how the size, shape, and change management consultant time affect her level of suspicion for malignancy. I think given its size still relatively small but it has grown over the past few years to its current size I do have a suspicion that this is a malignancy adjacent to some scar. The options discussed with him were for continued observation versus needle biopsy versus surgical wedge resection possible lobectomy which I think he would tolerate. After discussing the risks and benefits of each of these he opted for surgery and in planning for that I will have him see his nematology teacher for a risk assessment as well as a brake drum lathe operator to give recommendations around anticoagulation around surgery. He certainly will have to stop his Coumadin 5 days prior to operation but the question of a bridge or what to bridge with. Aortic root dilatation (CMS/HCC V24) 01/24/2023 Coronary artery disease invo lving [place] coronary artery of [place] heart without angina pectoris 06/20/2022 Mixed hyperlipidemia 06/20/2022 Primary hypertension 04/23/2022 Coronary artery disease due to calcified coronar y lesion 03/18/2022 Lab test positive for detection of COVID-19 viru s 07/11/2021 Overview (05/31/2024): 07/03/21, [facility] 07/03/21 Thoracic aortic aneurysm (CMS/HCC V24) Elevated LFTs 11/27/2020 IBS (irritable bowel syndrome) 02/03/2020 Overview (05/31/2024): Diarrhea predominant Chronic diarrhea 12/23/2019 Fatty liver 07/09/2019 Nephrolithiasis 07/09/2019 Diplopia 06/26/2017 Overview (05/31/2024): 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 Neg CN 2004. Small polyps x 2 at CN 05/13/2011: Pathology report: Tubular adenomas x 2. 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 Current Oncology Plans No current plan information found. Past Plans No past plan information found. Radiation Treatments * No radiation treatments are documented for this patient in [facility]. Treatments may have been administered in another system. Lifetime Dose Tracking * Chemical Lifetime Dose Automatic Entry Manual Entr y Fluoro Time 3.58 minutes 3.58 minutes 0 minutes Air Kerma 191.7 mGy 191.7 mGy 0 mGy Resolved Problems Problem Noted Date Diagnosed Date Resolved Date SBO (small bowel obstruction ) ([facility] V24, [facility] V28) 08/29/2024 09/16/2024
--- OUTSIDE RECORDS SUMMARY | 2025-03-16 15:26 | XMS_ITS | Encounter Summary ---
Author Organization [facility] Address [address] [place] [address] Care Team Providers Care Note Taker Name Role Phone Toby Ortiz MD Primary Care Provider Unavail able Caterina Sena MD Primary Care Provider Ben Pantoja MD Unavailable [phone] Ben Martin MD Unavailable [phone] Jason Lin MD Unavailable Sania Browning PA-C Unavailable [phone] Juan Miguel Solis PA-C Unavailable [phone] [facility] Dermatology & Laser Unavaila ble Unavailable Le Recinos DO Primary Care Provider [phone] Encounter Details Date Type Department Care Team Description 03/09/2019 Stem Lead Former Report Medical Records [address] [place] [address] Pam Menendez PA-C [address] [address] Social History Tobacco Use Types Packs/Day Years Used Date Smoking Tobacco: Every Day Cigarettes 0.5 45 Started: [birth year]/18/1962 Smokeless Tobacco: Never Alcohol Use Standard Drinks/Week Comments Yes 0 (1 standard drink = 0.6 oz pur e alcohol) occasionally, 2 times [facility] Alcohol Habits Answer Date Recorded How often [...] Never 08/19/2023 How often do you attend protestant or jewish serv ices? Never 08/19/2023 Do you belong to any clubs o r organizations such as protestant groups, unions, fraternal or athletic groups, or [...] place to sleep or slept in a penitentiary (including now)? No 08/19/2023 Sex Assigned at Date Recorded Not on file Job Start Date Occupation Industry Not on file Not on file Not on file documented as of this encounter Plan of Treatment Not on file documented as of this encounter Visit Diagnoses Not on filedocumented in this encounter Care Teams Note Taker Relationship Specialty Start Date End Date Toby Ortiz MD PCP - General Internal Medicine 07/07/15 12/11/21 Caterina Sena MD PCP - General Family Practice 12/12/21 04/27/24 Le Recinos, [address] [address] PCP - General Internal Medicine 04/28/24 Ben Martin MD Specialist Cardiology 03/22/22 08/18/23 Ben Martin MD Specialist Cardiology 03/22/22 Jason Lin MD Lung Cancer Crime Scene Investigator 04/04/23 Sania Browning PA-C [address] [address] Thoracic Surgery 05/13/23 Juan Miguel Solis PA-C [address] [address] Specialist Thoracic Surgery 05/16/23 [facility] 08/19/23 documented as of this encounter
--- OUTSIDE RECORDS SUMMARY | 2025-03-16 15:26 | XMS_ITS | Encounter Summary ---
Author Organization [facility] Address [address] [place] [address] Care Team Providers Care Shingle Packer Name Role Phone Toby Ortiz MD Primary Care Provider Unavail able Caterina Sena MD Primary Care Provider Ben Pantoja MD Unavailable [phone] Ben Martin MD Unavailable [phone] Jason Lin MD Unavailable Sania Browning PA-C Unavailable [phone] Juan Miguel Solis PA-Ellis Unavailable [phone] [facility] Dermatology & Laser Unavaila ble Unavailable Le Recinos DO Primary Care Provider [phone] Reason for Visit * Reason Comments E-prescribe Rx Request Encounter Details Date Type Department Care Team Description 12/06/2020 Refill Medicine/Pediatrics [address] [address] Toby Ortiz MD E-prescribe Rx Request Social History Tobacco Use Types Packs/Day Years [...] Never 08/19/2023 How often do you attend hindu or restoration serv ices? Never 08/19/2023 Do you belong to any clubs o r organizations such as hindu groups, unions, fraternal or athletic groups, or [...] place to sleep or slept in a mcc (including now)? No 08/19/2023 Sex Assigned at Date Recorded Not on file Job Start Date Occupation Industry Not on file Not on file Not on file COVID-19 Exposure Response Date Recorded In the last month, have you been in contact with someone who was confirmed or suspected to have Coronavirus / COVID-19? No / Unsure 12/08/2020 3:56 PM EDT documented as of this encounter Miscellaneous Notes * Telephone Encounter - Patricia Gr L.P.NPorsche - 12/06/2020 9:44 AM EDT Last office visit 11/21/20 SCHEDULED APPT 04/09/21 Lab Results Component Value Date ALB 4.0 11/21/2020 SGOT 43 11/21/2020 SGPT 38 11/21/2020 TBILI 0.8 11/21/2020 ALKPHOS 91 11/21/2020 TP 7.3 11/21/2020 Lab Results Component Value Date NA 135 11/21/2020 K 4.3 11/21/2020 CO2 28 11/21/2020 CL 101 11/21/2020 BUN 12 11/21/2020 CREAT 0.90 11/21/2020 GLU 82 11/21/2020 CA 9.5 11/21/2020 GFR > 60 11/21/2020 * Telephone Encounter - Aida Browning - 12/06/2020 9:28 AM EDT Patient would like script to be: E-PRESCRIBED/FAXED TO PHARMACY WHEN WAS THE PATIENT'S LAST APPOINTMENT IN ADULT MEDICINE? 11/21/20 WHEN WAS THE LAST TIME THE PATIENT SAW THEIR PCP? 11/16/20 Does patient have an upcoming appointment? Yes 04/09/21 (THE MEDICATION REQUESTED IS ON THE MED LIST ABOVE) All of the medications requested were on the CURRENT MEDS list Did you check the Pharmacy information above?: YES Patient wants: 90 -day supply Is this a mail order prescription request ? NO If the refill is from a FAXED refill request what is the RX # listed on the fax? N/A Patients current insurance carrier is: [place]or[place] / Plan: BCBS MDCR-ADV PPO $25/$45 [place] / Product Type: MEDICARE [id number] documented in this encounter Plan of Treatment Not on file documented as of this encounter Visit Diagnoses Not on filedocumented in this encounter Care Teams Shingle Packer Relationship Specialty Start Date End Date Toby Ortiz MD PCP - General Internal Medicine 07/07/15 12/11/21 Caterina Sena MD PCP - General Family Practice 12/12/21 04/27/24 Le Recinos, DO [address] [place] [address] PCP - General Internal Medicine 04/28/24 Ben Martin MD Specialist Cardiology 03/22/22 08/18/23 Ben Martin MD Specialist Cardiology 03/22/22 Jason Lin MD Lung Cancer Airplane Designer 04/04/23 Sania Browning PA-C [address] [address] Thoracic Surgery 05/13/23 Juan Miguel Solis PA-C [address] [address] Specialist Thoracic Surgery 05/16/23 [facility] Dermatology & Laser 08/19/23 documented as of this encounter
--- OUTSIDE RECORDS SUMMARY | 2025-03-16 15:26 | XMS_ITS | Encounter Summary ---
Author Organization [facility] Address [address] [place] [address] Care Team Providers Care Tank Truck Engine Mechanic Name Role Phone Name, Jeremi BRICE Primary Care Provider Unavailabl Toby Gutierrez MD Primary Care Provider Unavail able Caterina Sena MD Primary Care Provider Unavai Ben Dorantes MD Unavailable [phone] Ben Martin MD Unavailable [phone] Jason Lin MD Unavailable Sania Browning PA-C Unavailable [phone] Juan Miguel Solis PA-C Unavailable [phone] [facility] Dermatology & Laser Unavaila ble Unavailable Le Recinos DO Primary Care Provider [phone] Encounter Details Date Type Department Care Team Description 07/16/2006 Hospital Medical Records [address] [place] [address] Trevor Arrington MD Social History Tobacco Use Types Packs/Day Years [...] Never 08/19/2023 How often do you attend cheondoism or episcopalian serv ices? Never 08/19/2023 Do you belong to any clubs o r organizations such as cheondoism groups, unions, fraNeoDiagnostix or athletic groups, or school groups? No [...] place to sleep or slept in a jail (including now)? No 08/19/2023 Sex Assigned at Date Recorded Not on file Job Start Date Occupation Industry Not on file Not on file Not on file documented as of this encounter Plan of Treatment Not on file documented as of this encounter Visit Diagnoses Not on filedocumented in this encounter Care Teams Tank Truck Engine Mechanic Relationship Specialty Start Date End Date Name, MD Jeremi PCP - General 01/28/1994 07/06/15 Toby Ortiz MD PCP - General Internal Medicine 07/07/15 12/11/21 Caternia Sena MD PCP - General Family Practice 12/12/21 04/27/24 Le Recinos, DO [address] [place] [address] PCP - General Internal Medicine 04/28/24 Ben Martin MD Specialist Cardiology 03/22/22 08/18/23 Ben Martin MD Specialist Cardiology 03/22/22 Jason Lin MD Lung Cancer Electro Optical Engineer 04/04/23 Sania Browning PA-C [address] [address] Thoracic Surgery 05/13/23 Juan Miguel Solis PA-C [address] [address] Specialist Thoracic Surgery 05/16/23 [facility] Dermatology & Laser 08/19/23 documented as of this encounter
--- OUTSIDE RECORDS SUMMARY | 2025-03-16 15:26 | XMS_ITS | Encounter Summary ---
Author Organization [facility] Address [address] [place] [address] Care Team Providers Care Revenue Investigator Name Role Phone Toby Ortiz MD Primary Care Provider Unavail able Caterina Sena MD Primary Care Provider Ben Pantoja MD Unavailable [phone] Ben Martin MD Unavailable [phone] Jason Lin MD Unavailable Sania Browning PA-C Unavailable [phone] Juan Miguel Solis PA-C Unavailable [phone] [facility] Unavaila ble Unavailable Le Recinos DO Primary Care Provider [phone] Encounter Details Date Type Department Care Team Description 05/03/2020 Orders Only Medical Records [address] [place] [address] Angus Diaz MD Social History Tobacco Use Types Packs/Day [...] How often do you attend protestant or rastafarian serv ices? Never 08/19/2023 Do you belong to any clubs o r organizations such as protestant groups, unions, [employer] or athletic groups, or school groups? No [...] have Coronavirus / COVID-19? No / Unsure 04/28/2020 3:43 PM EDT documented as of this encounter Plan of Treatment Not on file documented as of this encounter Procedures Procedure Name Priority Date/Time Associated Diagnosis Comments OUTSIDE PATHOLOGY Routine 05/01/2020 documented in this encounter Results * OUTSIDE PATHOLOGY (05/01/2020) Angus Diaz MD OUTSIDE LAB documented in this encounter Visit Diagnoses Not on filedocumented in this encounter Care Teams Revenue Investigator Relationship Specialty Start Date End Date Toby Ortiz MD PCP - General Internal Medicine 07/07/15 12/11/21 Caterina Sena MD PCP - General Family Practice 12/12/21 04/27/24 Le Recinos DO [address] [place] [address] PCP - General Internal Medicine 04/28/24 Ben Martin MD Specialist Cardiology 03/22/22 08/18/23 Ben Martin MD Specialist Cardiology 03/22/22 Jason Lin MD Lung Cancer Manager Photography 04/04/23 Sania Browning PA-C [address] [address] Thoracic Surgery 05/13/23 Juan Miguel Solis PA-C [address] [address] Specialist Thoracic Surgery 05/16/23 [facility] 08/19/23 documented as of this encounter
--- OUTSIDE RECORDS SUMMARY | 2025-03-16 15:26 | XMS_ITS | Encounter Summary ---
Author Organization [facility] Address [address] [place] [address] Care Team Providers Care Land Degradation Analyst Name Role Phone JorjeLe Primary Care Provider [phone] Encounter Details Date Type Department Care Team (Late st Contact Info) Description 10/10/2024 Lab Requisition [facility] - Main Lab [address] [facility] [address] [place] [address] Bernadine Florez MD [address] [place], [place] [id number] Other malaise; Unspecified atrial fibrillation (CMS/HCC V24, [...] Anticoagulation - Warfarin Visit Coumadin Clinic - [address] [place] [address] 06/03/2025 2:45 PM EST Office Visit Internal Medicine - [facility] [address] [place] [address] Aide Linares, LEWIS [address] [place] [address] documented as of this encounter Visit Diagnoses Diagnosis Other malaise Unspecified atrial fibrillation (CMS/HCC V24, CMS/HCC V28) documented in this encounter Additional Health Concerns Infection Onset Date Last Indicated Resolved Time Tuberculosis Rule-Out 01/12/2025 01/12/20252024 7:05 PM EDT documented as of this encounter Care Teams Land Degradation Analyst Relationship Specialty Start Date End Date Le Recinos DO [address] [place] [address] PCP - General 04/28/24 documented as of this encounter
--- OUTSIDE RECORDS SUMMARY | 2025-03-16 15:26 | XMS_ITS | Encounter Summary ---
Author Organization [facility] Address [address] [place] [address] Care Team Providers Care Radiation Control Worker Name Role Phone Caterina Sena MD Primary Care Provider Ben Pantoja MD Unavailable [phone] Ben Martin MD Unavailable [phone] Jason Lin MD Unavailable Sania Browning PA-C Unavailable [phone] Juan Miguel Solis PA-C Unavailable [phone] [facility] Unavaila ble Unavailable Le Recinos DO Primary Care Provider [phone] Encounter Details Date Type Department Care Team Description 06/04/2023 Hospital Medical Records [address] [place] [address] Juan Miguel Solis PA-C [address] [address] Social History Tobacco Use Types Packs/Day Years Used Date Smoking Tobacco: Former Cigarettes 2 59 0 08/18/1962 - 05/20/2023 Smokeless Tobacco: Never Alcohol Use Standard Drinks/Week Comments Not Currently 0 (1 standard drink = 0.6 oz pure alcohol) occasionally, [facility] Alcohol Habits Answer Date Recorded How often [...] Never 08/19/2023 How often do you attend episcopalian or pentecostalism serv ices? Never 08/19/2023 Do you belong to any clubs o r organizations such as episcopalian groups, unions, fraternal or athletic groups, or [...] suspected to have Coronavirus/COVID-19? No / Unsure 06/02/2023 2:57 PM EST documented as of this encounter Plan of Treatment Not on file documented as of this encounter Visit Diagnoses Not on filedocumented in this encounter Care Teams Radiation Control Worker Relationship Specialty Start Date End Date Caterina Sena MD PCP - General Family Practice 12/12/21 04/27/24 Le Recinos DO [address] [place] [address] PCP - General Internal Medicine 04/28/24 Ben Martin MD Specialist Cardiology 03/22/22 08/18/23 Ben Martin MD Specialist Cardiology 03/22/22 Jason Lin MD Lung Cancer Barge Worker 04/04/23 Sania Browning PA-C [address] [address] Thoracic Surgery 05/13/23 Juan Miguel Solis PA-C [address] [address] Specialist Thoracic Surgery 05/16/23 [facility] 08/19/23 documented as of this encounter
--- OUTSIDE RECORDS SUMMARY | 2025-03-16 15:26 | XMS_ITS | Encounter Summary ---
Author Organization [facility] Address [address] [place] [address] Care Team Providers Care Dialysis Clinical Manager Name Role Phone Caterina Sena MD Primary Care Provider Ben Pantoja MD Unavailable [phone] Ben Martin MD Unavailable [phone] Jason Lin MD Unavailable Sania Browning PA-C Unavailable [phone] Juan Miguel Solis-Ellis Unavailable [phone] [facility] Unavaila ble Unavailable Le Recinos DO Primary Care Provider [phone] Encounter Details Date Type Department Care Team Description 07/05/2023 Orders Only Medical Records [address] [place], [place] [phone] [place] [id number] Social History Tobacco Use Types Packs/Day Years Used Date Smoking Tobacco: Former Cigarettes 0.8 59 0 08/18/1962 - 05/20/2023 Smokeless Tobacco: [...] Never 08/19/2023 How often do you attend druze or restorationism serv ices? Never 08/19/2023 Do you belong to any clubs o r organizations such as druze groups, unions, [employer] or athletic groups, or school groups? No [...] place to sleep or slept in a detention (including now)? No 08/19/2023 Sex Assigned at Date Recorded Not on file Job Start Date Occupation Industry Not on file Not on file Not on file documented as of this encounter Plan of Treatment Not on file documented as of this encounter Procedures Procedure Name Priority Date/Time Associated Diagnosis Comments OUTSIDE CT Routine 06/04/2023 OUTSIDE LAB Routine 06/04/2023 documented in this encounter Results * OUTSIDE CT (06/04/2023) [facility] RADIOLOGY * OUTSIDE LAB (06/04/2023) [facility] documented in this encounter Visit Diagnoses Not on filedocumented in this encounter Care Teams Dialysis Clinical Manager Relationship Specialty Start Date End Date Caterina Sena MD PCP - General Family Practice 12/12/21 04/27/24 Le Recinos, DO [address] [place] [address] PCP - General Internal Medicine 04/28/24 Ben Martin MD Specialist Cardiology 03/22/22 08/18/23 Ben Martin MD Specialist Cardiology 03/22/22 Jason Lin MD Lung Cancer Poultry Offal Icer 04/04/23 Sania Browning PA-C [address] [address] Thoracic Surgery 05/13/23 Juan Miguel Solis PA-C [address] [address] Specialist Thoracic Surgery 05/16/23 [facility] 08/19/23 documented as of this encounter
--- OUTSIDE RECORDS SUMMARY | 2025-03-16 15:26 | XMS_ITS | Encounter Summary ---
Author Organization [facility] Address [address] [place] [address] Care Team Providers Care Automotive Service Professional Name Role Phone Toby Ortiz MD Primary Care Provider Unavail able Caterina Sena MD Primary Care Provider Ben Pantoja MD Unavailable [phone] Ben Martin MD Unavailable [phone] Jason Lin MD Unavailable Sania Browning PA-C Unavailable [phone] Juan Miguel Solis-Ellis Unavailable [phone] [facility] Unavaila ble Unavailable Le Recinos DO Primary Care Provider [phone] Reason for Visit * Reason Comments other Encounter Details Date Type Department Care Team Description 06/04/2018 Telephone Medicine/Pediatrics - [address] [phone] Toby Ortiz MD other Social History Tobacco Use Types Packs/Day Years [...] Never 08/19/2023 How often do you attend catholic or orthodoxy serv ices? Never 08/19/2023 Do you belong to any clubs o r organizations such as catholic groups, unions, fraternal or athletic groups, or [...] encounter Miscellaneous Notes * Telephone Encounter - Jo Black M.A. - 06/16/2018 4:34 PM EST Spoke with Dr. Pompa's office. Pt is scheduled for procedure on 06/30/2018. They have not notified the Pt yet, they are waiting for a time for the OR * Telephone Encounter - Toby Ortiz MD - 06/16/2018 6:41 AM EST Please get me an update on this, thanks * Telephone Encounter - Jo Black M.A. - 06/05/2018 11:02 AM EST Spoke to Dr. Pompa's office. They informed me they are not booking him right now because it has to do with his tabacco use. They are looking further into it and they will call the Pt and book once itgets straighten out. * Telephone Encounter - Toby Ortiz MD - 06/05/2018 10:00 AM EST This patient was seen for SCC of scalp, and would like to schedule the removal procedure, states hewasn't contacted to book the surgery, seen by Dr Pompa's PA. Please touch base with their office tohave them reach out to him for scheduling. Thank you documented in this encounter Plan of Treatment Not on file documented as of this encounter Visit Diagnoses Not on filedocumented in this encounter Care Teams Automotive Service Professional Relationship Specialty Start Date End Date Toby Ortiz MD PCP - General Internal Medicine 07/07/15 12/11/21 Caterina Sena MD PCP - General Family Practice 12/12/21 04/27/24 Le Recinos, [address] [address] PCP - General Internal Medicine 04/28/24 Ben Martin MD Specialist Cardiology 03/22/22 08/18/23 Ben Martin MD Specialist Cardiology 03/22/22 Jason Lin MD Lung Cancer Chipper Machine Operator 04/04/23 Sania Browning PA-C [address] [address] Thoracic Surgery 05/13/23 Juan Miguel Solis PA-C [address] [place] [address] Specialist Thoracic Surgery 05/16/23 [facility] 08/19/23 documented as of this encounter
--- OUTSIDE RECORDS SUMMARY | 2025-03-16 15:26 | XMS_ITS | Encounter Summary ---
Author Organization [facility] Address [address] [place] [address] Care Team Providers Care Crate Opener Name Role Phone Toby Ortiz MD Primary Care Provider Unavail able Caterina Sena MD Primary Care Provider Unavai Ben Dorantes MD Unavailable [phone] Ben Martin MD Unavailable [phone] Jason Lin MD Unavailable Sania Browning PA-C Unavailable Juan Miguel Solis-Ellis Unavailable [facility] Unavaila ble Unavailable Le Recinos DO Primary Care Provider [phone] Reason for Referral * Radiology Services (Routine) - Closed Specialty Diagnoses / Procedures Referred By Contbrady t Referred To Contact Radiology Diagnoses Adrenal incidentaloma (HCC) Procedures CAT SCAN OF ABDOMEN NO CONTRAST Riki Meyers MD [address] [place] [address] [address] [address] [place] [address] Referral ID Status Reason Start Date Expiration Date Visits Re quested Visits Authorized [id number] Closed 04/11/2020 10/07/2020 1 1 Encounter Details Date Type Department Care Team Description 04/24/2020 Orders Only Adult Medicine B - [address] [address] Riki Meyers MD Adrenal incidentaloma (HCC) (Primary Dx) Social History Tobacco Use Types Packs/Day Years [...] Never 08/19/2023 How often do you attend evangelical or cheondoism serv ices? Never 08/19/2023 Do you belong to any clubs o r organizations such as evangelical groups, unions, fraternal or athletic groups, or [...] place to sleep or slept in a retirement (including now)? No 08/19/2023 Sex Assigned at Date Recorded Not on file Job Start Date Occupation Industry Not on file Not on file Not on file COVID-19 Exposure Response Date Recorded In the last month, have you been in contact with someone who was confirmed or suspected to have Coronavirus / COVID-19? No / Unsure 04/19/2020 2:29 PM EDT documented as of this encounter Plan of Treatment Not on file documented as of this encounter Results * CAT SCAN OF ABDOMEN NO CONTRAST (05/30/2020 2:17 PM EST) 05/30/2020 3:13 PM EST Impressions [facility] OTHER EXTERNAL - 05/30/2020 3:32 PM EST IMPRESSION: 1. Stable appearing right adrenal gland as detailed in the report unchanged from baseline 2017 study suggesting possible small benign adrenal adenoma versus partial volume artifact. 2. Gallstones as imaged on 07/07/[address] 3. Small fat-containing umbilical hernia unchanged from prior studies. Narrative [place] OTHER EXTERNAL - 05/30/2020 3:32 PM EST Noncontrast abdomen CT: HISTORY: Follow-up right adrenal adenoma COMPARISON: 01/31/2017, 07/07/2019 TECHNIQUE: Scans were obtained through the upper abdomen without oral or intravenous contrast. Radiation dose:ctdi 17.94 mGy Coronal imaging suggesting possible 1.6 cm benign right adrenal adenoma (-3 HU) unchanged appearance from baseline 01/31/2017 study and considered benign. This finding is not confirmed on axial/sagittal planes and may alternatively represent partial volume artifact through one adrenal limb on thin section imaging. Left adrenal gland appears normal. Lung bases are clear. 3 mm and 5 mm gallstones. Liver, bile ducts, pancreas, and kidneys appear normal given limitations of noncontrast technique. Spleen is borderline enlarged measuring 13.9 cm in length. Atherosclerotic calcification abdominal aorta without aneurysmal dilatations. No gastrointestinal pathology identified. No focal bone pathology. Small fat-containing umbilical hernia with a loop of nondistended small bowel passing immediately above the umbilical hernia without entering the hernia. The appearance is unchanged from prior studies as remote as 01/31/2017. Procedure Note Sina Ulloa MD - 05/30/[address]: HISTORY: Follow-up right adrenal adenoma COMPARISON: 01/31/2017, 07/07/2019 TECHNIQUE: Scans were obtained through the upper abdomen without oral orintravenous contrast. Radiation dose:ctdi 17.94 mGy Coronal imaging suggesting possible 1.6 cm benign right adrenal adenoma(-3 HU) unchanged appearance from baseline 01/31/2017 study and considered benign. Thisfinding is not confirmed on axial/sagittal planes and may alternatively represent partial volumeartifact through one adrenal limb on thin section imaging. Left adrenal gland appearsnormal. Lung bases are clear. 3 mm and 5 mm gallstones. Liver, bile ducts,pancreas, and kidneys appear normal given limitations of noncontrast technique. Spleen isborderline enlarged measuring 13.9 cm in length. Atherosclerotic calcification abdominalaorta without aneurysmal dilatations. No gastrointestinal pathology identified. No focal bonepathology. Small fat-containing umbilical hernia with a loop of nondistended smallbowel passing immediately above the umbilical hernia without entering the hernia. Theappearance is unchanged from prior studies as remote as 01/31/2017. IMPRESSION IMPRESSION: 1. Stable appearing right adrenal gland as detailed in the reportunchanged from baseline 2017 study suggesting possible small benign adrenal adenoma versus partialvolume artifact. 2. Gallstones as imaged on 07/07/[address] 3. Small fat-containing umbilical hernia unchanged from prior studies. Riki Meyers MD CT SCANS [facility] OTHER EXTERNAL documented in this encounter Visit Diagnoses Diagnosis Adrenal incidentaloma (HCC)- Primary Unspecified disorder of adrenal glands Adrenal incidentaloma (HCC) Unspecified disorder of adrenal glands documented in this encounter Care Teams Crate Opener Relationship Specialty Start Date End Date Toby Ortiz MD PCP - General Internal Medicine 07/07/15 12/11/21 Caterina Sena MD PCP - General Family Practice 12/12/21 04/27/24 [facility], [address] [address] PCP - General Internal Medicine 04/28/24 Ben Martin MD Specialist Cardiology 03/22/22 08/18/23 Ben Martin MD Specialist Cardiology 03/22/22 Jason Lin MD Lung Cancer Marketing Copywriter 04/04/23 Sania Browning PA-C [address] [address] Thoracic Surgery 05/13/23 Juan Miguel Solis PA-C [address] [address] Specialist Thoracic Surgery 05/16/23 [facility] 08/19/23 documented as of this encounter
--- OUTSIDE RECORDS SUMMARY | 2025-03-16 15:26 | XMS_ITS | Encounter Summary ---
Author Organization [facility] Address [address] [place] [address] Care Team Providers Care Cna Instructor Name Role Phone Toby Ortiz MD Primary Care Provider Unavail able Caterina Sena MD Primary Care Provider Ben Pantoja MD Unavailable [phone] Ben Martin MD Unavailable [phone] Jason Lin MD Unavailable Sania Browning PA-C Unavailable [phone] Juan Miguel Solis PA-C Unavailable [phone] [facility] Unavaila ble Unavailable Le Recinos DO Primary Care Provider Encounter Details Date Type Department Care Team Description 02/25/2019 Business Doc Medical Records [address] [place] [id number] Abstract, Provider Social History Tobacco Use Types [...] Never 08/19/2023 How often do you attend adventist or orthodox serv ices? Never 08/19/2023 Do you belong to any clubs o r organizations such as adventist groups, unions, fra[employer] or athletic groups, or school groups? [...] on filedocumented in this encounter Care Teams Cna Instructor Relationship Specialty Start Date End Date Toby Ortiz MD PCP - General Internal Medicine 07/07/15 12/11/21 Caterina Sena MD PCP - General Family Practice 12/12/21 04/27/24 Le Recinos, [address] [address] PCP - General Internal Medicine 04/28/24 Ben Martin MD Specialist Cardiology 03/22/22 08/18/23 Ben Martin MD Specialist Cardiology 03/22/22 Jason Lin MD Lung Cancer Rotor Coil Taper 04/04/23 Sania Browning PA-C [address] [address] Thoracic Surgery 05/13/23 Juan Miguel Solis PA-C [address] [address] Specialist Thoracic Surgery 05/16/23 [facility] 08/19/23 documented as of this encounter
--- OUTSIDE RECORDS SUMMARY | 2025-03-16 15:26 | XMS_ITS | Encounter Summary ---
Author Organization [facility] Address [address] [place] [address] Care Team Providers Care Agricultural Equipment Operator Name Role Phone JorjeLe Primary Care Provider [phone] Encounter Details Date Type Department Care Team (Late st Contact Info) Description 10/06/2024 Lab Requisition [facility] - Main Lab [address] [place] [address] Bernadine Florez MD [address] [place], [place] [phone] Unspecified atrial fibrillation (CMS/HCC V24, CMS/HCC V28) [...] Anticoagulation - Warfarin Visit Coumadin Clinic - [facility] [address] [facility] [place] [phone] 06/03/2025 2:45 PM EST Office Visit Internal Medicine - [facility] [address] [facility] [place] [phone] Aide Linares, LEWIS [address] [place], [place] documented as of this encounter Procedures Procedure Name Priority Date/Time Associated Diagnosis Comments PROTHROMBIN TIME WITH INR Routine 10/07/2024 6:15 AM EDT Unspecified atrial fibrillation (CMS/HCC) documented in this encounter Results * (ABNORMAL) Prothrombin time with INR (10/07/2024 6:15 AM EDT) Protime 43.1(H) 10.6 - 13.9 sec LAB COAGULATION METHOD 10/07/2024 10:22 AM EDT [facility] INR 3.5 LAB COAGULATION METHOD 10/07/2024 10:22 AM EDT [facility] Blood Venous blood specimen / Unknown Venipuncture / Unknown 10/07/2024 6:15 AM EDT 10/07/2024 8:47 AM EDT us Bernadine Florez MD LAB BLOOD ORDERABLES Final Resul t [facility] [address] [place] [address], documented in this encounter Visit Diagnoses Diagnosis Unspecified atrial fibrillation (CMS/HCC V24, CMS/HCC V28) documented in this encounter Additional Health Concerns Infection Onset Date Last Indicated Resolved Time Tuberculosis Rule-Out 01/12/2025 01/12/20252024 7:05 PM EDT documented as of this encounter Care Teams Agricultural Equipment Operator Relationship Specialty Start Date End Date Le Recinos DO [address] [facility] [place] [address] PCP - General 04/28/24 documented as of this encounter
--- OUTSIDE RECORDS SUMMARY | 2025-03-16 15:26 | XMS_ITS | Encounter Summary ---
Author Organization [facility] Address [address] [place] [address] Care Team Providers Care Waiter/Waitress Formal Name Role Phone Caterina Sena MD Primary Care Provider Ben Pantoja MD Unavailable [phone] Ben Martin MD Unavailable [phone] Jason Lin MD Unavailable Sania Browning PA-C Unavailable [phone] Juan Miguel Solis PA-C Unavailable [phone] [facility] Unavaila ble Unavailable Le Recinos DO Primary Care Provider [phone] Encounter Details Date Type Department Care Team Description 06/21/2023 Home Health Certification Medical Records [address] [place] [address] [facility] [address] [place] [address] Social History Tobacco Use Types Packs/Day Years [...] Never 08/19/2023 How often do you attend congregation or yazdanism serv ices? Never 08/19/2023 Do you belong to any clubs o r organizations such as congregation groups, unions, fraternal or athletic groups, or [...] place to sleep or slept in a group home (including now)? No 08/19/2023 Sex Assigned at [...] on filedocumented in this encounter Care Teams Waiter/Waitress Formal Relationship Specialty Start Date End Date Caterina Sena MD PCP - General Family Practice 12/12/21 04/27/24 Le Recinos DO [address] [place] [address] PCP - General Internal Medicine 04/28/24 Ben Martin MD Specialist Cardiology 03/22/22 08/18/23 Ben Martin MD Specialist Cardiology 03/22/22 Jason Lin MD Lung Cancer Able Seaman 04/04/23 Sania Browning PA-C [address] [address] Thoracic Surgery 05/13/23 Juan Miguel Solis PA-C [address] [address] Specialist Thoracic Surgery 05/16/23 [facility] 08/19/23 documented as of this encounter
--- OUTSIDE RECORDS SUMMARY | 2025-03-16 15:26 | XMS_ITS | Encounter Summary ---
Author Organization [facility] Address [address] [place] [address] Care Team Providers Care Stitch Bonder Machine Operator Helper Name Role Phone JorjeLe Primary Care Provider [phone] Encounter Details Date Type Department Care Team (Late st Contact Info) Description 10/27/2024 Lab Requisition [facility] - Main Lab [address] [place] [address] Bernadine Florez MD [address] [place], [place] [id number] Unspecified atrial fibrillation (CMS/HCC V24, CMS/HCC V28) [...] Anticoagulation - Warfarin Visit Coumadin Clinic - [facility] [address] [facility] [place] [phone] 06/03/2025 2:45 PM EST Office Visit Internal Medicine - [facility] [address] [facility] [place] [phone] Aide Linares, LEWIS [address] [place], [place] documented as of this encounter Procedures Procedure Name Priority Date/Time Associated Diagnosis Comments PROTHROMBIN TIME WITH INR Routine 10/28/2024 5:32 AM EDT Unspecified atrial fibrillation (CMS/HCC) documented in this encounter Results * (ABNORMAL) Prothrombin time with INR (10/28/2024 5:32 AM EDT) Protime 25.5(H) 10.6 - 13.9 sec LAB COAGULATION METHOD 10/28/2024 10:39 AM EDT [facility] INR 2.1 LAB COAGULATION METHOD 10/28/2024 10:39 AM EDT [facility] Blood Venous blood specimen / Unknown Venipuncture / Unknown 10/28/2024 5:32 AM EDT 10/28/2024 9:27 AM EDT us Bernadine Florez MD LAB BLOOD ORDERABLES Final Resul t [facility] [address] [place] [address], documented in this encounter Visit Diagnoses Diagnosis Unspecified atrial fibrillation (CMS/HCC V24, CMS/HCC V28) documented in this encounter Additional Health Concerns Infection Onset Date Last Indicated Resolved Time Tuberculosis Rule-Out 01/12/2025 01/12/20252024 7:05 PM EDT documented as of this encounter Care Teams Stitch Bonder Machine Operator Helper Relationship Specialty Start Date End Date eL Recinos DO [address] [facility] [place] [address] PCP - General 04/28/24 documented as of this encounter
--- OUTSIDE RECORDS SUMMARY | 2025-03-16 15:26 | XMS_ITS | Encounter Summary ---
Author Organization [facility] Address [address] [place] [address] Care Team Providers Care Blending Technician Name Role Phone Name, Jeremi BRICE Primary Care Provider Unavailabl Toby Gutierrez MD Primary Care Provider Unavail able Caterina Sena MD Primary Care Provider Unavai Ben Dorantes MD Unavailable [phone] Ben Martin MD Unavailable [phone] Jason Lin MD Unavailable Sania rBowning PA-C Unavailable [phone] Juan Miguel Solis PA-C Unavailable [phone] [facility] Unavaila ble Unavailable Le Recinos DO Primary Care Provider [phone] Encounter Details Date Type Department Care Team Description 11/20/2006 Hospital Medical Records [address] [place] [address] Berto Chatterjee MD Social History Tobacco Use Types Packs/Day [...] Never 08/19/2023 How often do you attend religion or mandaeism serv ices? Never 08/19/2023 Do you belong to any clubs o r organizations such as religion groups, unions, [employer] or athletic groups, or school groups? No [...] on filedocumented in this encounter Care Teams Blending Technician Relationship Specialty Start Date End Date Name, MD Jeremi PCP - General 01/28/1994 07/06/15 Toby Ortiz MD PCP - General Internal Medicine 07/07/15 12/11/21 Caterina Sena MD PCP - General Family Practice 12/12/21 04/27/24 Le Recinos, DO [address] [place] [address] PCP - General Internal Medicine 04/28/24 Ben Martin MD Specialist Cardiology 03/22/22 08/18/23 Ben Martin MD Specialist Cardiology 03/22/22 Jason iLn MD Lung Cancer Nuclear Reactor Operator 04/04/23 Sania Browning PA-C [address] [address] Thoracic Surgery 05/13/23 Juan Miguel Solis PA-C [address] [address] Specialist Thoracic Surgery 05/16/23 [facility]ermatology [facility] Laser 08/19/23 documented as of this encounter
--- OUTSIDE RECORDS SUMMARY | 2025-03-16 15:26 | XMS_ITS | Encounter Summary ---
Author Organization [facility] Address [address] [place] [address] Care Team Providers Care Underliner Name Role Phone JorjeLe Primary Care Provider [phone] Encounter Details Date Type Department Care Team (Late st Contact Info) Description 10/13/2024 Lab Requisition [facility] - Main Lab [address] [place] [address] Bernadine Florez MD [address] [place], [place] [id number] Unspecified atrial fibrillation (CMS/HCC V24, CMS/HCC V28) [...] Anticoagulation - Warfarin Visit [facility]mad[facility] - [facility] [address] [facility] [place] [phone] 06/03/2025 2:45 PM EST Office Visit Internal Medicine - [facility] [address] [facility] [place] [phone] Aide Linares, LEWIS [address] [place], [place] documented as of this encounter Procedures Procedure Name Priority Date/Time Associated Diagnosis Comments PROTHROMBIN TIME WITH INR Routine 10/14/2024 9:47 AM EDT Unspecified atrial fibrillation (CMS/HCC) documented in this encounter Results * (ABNORMAL) Prothrombin time with INR (10/14/2024 9:47 AM EDT) Protime 17.7(H) 10.6 - 13.9 sec LAB COAGULATION METHOD 10/14/2024 11:09 AM EDT [facility] INR 1.4 LAB COAGULATION METHOD 10/14/2024 11:09 AM EDT [facility] Blood Venous blood specimen / Unknown Venipuncture / Unknown 10/14/2024 9:47 AM EDT 10/14/2024 10:59 AM EDT us Bernadine Florez MD LAB BLOOD ORDERABLES Final Resul t [facility] [address] [place] [address], documented in this encounter Visit Diagnoses Diagnosis Unspecified atrial fibrillation (CMS/HCC V24, CMS/HCC V28) documented in this encounter Additional Health Concerns Infection Onset Date Last Indicated Resolved Time Tuberculosis Rule-Out 01/12/2025 01/12/20252024 7:05 PM EDT documented as of this encounter Care Teams Underliner Relationship Specialty Start Date End Date Le Recinos DO [address] [facility] [place] [address] PCP - General 04/28/24 documented as of this encounter
--- OUTSIDE RECORDS SUMMARY | 2025-03-16 15:26 | XMS_ITS | Encounter Summary ---
Author Organization [facility] Address [address] [place] [address] Care Team Providers Care Seafood Process Worker Name Role Phone JorjeLe Primary Care Provider [phone] Encounter Details Date Type Department Care Team (Late st Contact Info) Description 10/17/2024 Lab Requisition [facility] - Main Lab [address] [place] [address] Bernadine Florez MD [address] [place], [place] [phone] Unspecified atrial fibrillation (CMS/HCC V24, CMS/HCC V28) [...] Anticoagulation - Warfarin Visit Coumadin Clinic - [facility] [address] [facility] [place] [phone] 06/03/2025 2:45 PM EST Office Visit Internal Medicine - [facility] [address] [facility] [place] [phone] Aide Linares, LEWIS [address] [place], [place] documented as of this encounter Procedures Procedure Name Priority Date/Time Associated Diagnosis Comments PROTHROMBIN TIME WITH INR Routine 10/18/2024 6:59 AM EDT Unspecified atrial fibrillation (CMS/HCC) documented in this encounter Results * (ABNORMAL) Prothrombin time with INR (10/18/2024 6:59 AM EDT) Protime 24.7(H) 10.6 - 13.9 sec LAB COAGULATION METHOD 10/18/2024 10:43 AM EDT [facility] INR 2.0 LAB COAGULATION METHOD 10/18/2024 10:43 AM EDT [facility] Blood Venous blood specimen / Unknown Venipuncture / Unknown 10/18/2024 6:59 AM EDT 10/18/2024 9:34 AM EDT us Bernadine Florez MD LAB BLOOD ORDERABLES Final Resul t [facility] [address] [place] [address], documented in this encounter Visit Diagnoses Diagnosis Unspecified atrial fibrillation (CMS/HCC V24, CMS/HCC V28) documented in this encounter Additional Health Concerns Infection Onset Date Last Indicated Resolved Time Tuberculosis Rule-Out 01/12/2025 01/12/20252024 7:05 PM EDT documented as of this encounter Care Teams Seafood Process Worker Relationship Specialty Start Date End Date Le Recinos DO [address] [facility] [place] [address] PCP - General 04/28/24 documented as of this encounter
--- OUTSIDE RECORDS SUMMARY | 2025-03-16 15:26 | XMS_ITS | Encounter Summary ---
Author Organization [facility] Address [address] [place] [address] Care Team Providers Care Cable Maintainer Name Role Phone Caterina Sena MD Primary Care Provider Ben Pantoja MD Unavailable [phone] Ben Martin MD Unavailable [phone] Jason Lin MD Unavailable Sania Browning PA-C Unavailable [phone] Juan Miguel Solis PA-C Unavailable [phone] [facility] Dermatology & Laser Unavaila ble Unavailable Le Recinos DO Primary Care Provider [phone] Encounter Details Date Type Department Care Team Description 04/09/2023 Orders Only Medical Records [address] [place] [address] Abstract, Provider Social History Tobacco Use Types [...] How often do you attend episcopalian or scientology serv ices? Never 08/19/2023 Do you belong [...] suspected to have Coronavirus/COVID-19? No / Unsure 04/04/2023 3:08 PM EDT documented as of this encounter Plan of Treatment Not on file documented as of this encounter Procedures Procedure Name Priority Date/Time Associated Diagnosis Comments OUTSIDE LAB Routine 04/02/2023 documented in this encounter Results * OUTSIDE LAB (04/02/2023) Provider Abstract LAB documented in this encounter Visit Diagnoses Not on filedocumented in this encounter Care Teams Cable Maintainer Relationship Specialty Start Date End Date Caterina Sena MD PCP - General Family Practice 12/12/21 04/27/24 Le Recinos, DO [address] [place] [address] PCP - General Internal Medicine 04/28/24 Ben Martin MD Specialist Cardiology 03/22/22 08/18/23 Ben Martin MD Specialist Cardiology 03/22/22 Jason Lin MD Lung Cancer Cable Maintainer 04/04/23 Sania Browning PA-C [address] [address] Thoracic Surgery 05/13/23 Juan Miguel Solis PA-C [address] [address] Specialist Thoracic Surgery 05/16/23 [facility]ermatology [facility] Laser 08/19/23 documented as of this encounter
--- OUTSIDE RECORDS SUMMARY | 2025-03-16 15:26 | XMS_ITS | Encounter Summary ---
Author Organization [facility] Address [address] [place] [address] Care Team Providers Care Stream Control Officer Name Role Phone Caterina Sena MD Primary Care Provider Ben Pantoja MD Unavailable [phone] Ben Martin MD Unavailable [phone] Jason Lin MD Unavailable Sania Browning PA-C Unavailable [phone] Juan Miguel Solis PA-C Unavailable [phone] [facility] Dermatology & Laser Unavaila ble Unavailable Le Recinos DO Primary Care Provider [phone] Encounter Details Date Type Department Care Team Description 05/13/2023 Orders Only [facility] Thoracic Surgery [place] [address] [facility] [address] [place] [address] Sania Browning PA-C 299 [facility] [address] [place] [address] History of lung cancer Social History Tobacco Use Types [...] Never 08/19/2023 How often do you attend orthodoxy or druze serv ices? Never 08/19/2023 Do you belong to any clubs o r organizations such as orthodoxy groups, unions, fraternal or athletic groups, or [...] place to sleep or slept in a halfway (including now)? No 08/19/2023 Sex Assigned at Date Recorded Not on file Job Start Date Occupation Industry Not on file Not on file Not on file COVID-19 Exposure Response Date Recorded In the last 10 days, have yo u been in contact with someone who was confirmed or suspected to have Coronavirus/COVID-19? No / Unsure 05/16/2023 2:23 PM EDT documented as of this encounter Plan of Treatment Not on file documented as of this encounter Procedures Procedure Name Priority Date/Time Associated Diagnosis Comments CHG RADIOLOGIC EXAM CHEST 2 VIEWS Routine 05/13/2023 History of lung cancer documented in this encounter Results * RADIOLOGIC EXAM CHEST 2 VIEWS (05/13/2023) Sania Browning PA-C RADIOLOGY [facility] RADIOLOGY documented in this encounter Visit Diagnoses Diagnosis History of lung cancer Personal history of malignant neoplasm of bronchus and lung documented in this encounter Care Teams Stream Control Officer Relationship Specialty Start Date End Date Caterina Sena MD PCP - General Family Practice 12/12/21 04/27/24 Laurie Recinosmana, DO [address] [place] [address] PCP - General Internal Medicine 04/28/24 Ben Martin MD Specialist Cardiology 03/22/22 08/18/23 Ben Martin MD Specialist Cardiology 03/22/22 Jason Lin MD Lung Cancer Manufacturing Technology Professor 04/04/23 Sania Browning PA-C [address] [address] Thoracic Surgery 05/13/23 Juan Miguel Solis PA-C [address] [address] Specialist Thoracic Surgery 05/16/23 [facility] Dermatology [facility] Laser 08/19/23 documented as of this encounter
--- OUTSIDE RECORDS SUMMARY | 2025-03-16 15:26 | XMS_ITS | Clinical Summary ---
Author Organization [place] [id number] [address] [facility] Building Address [address] [place] [phone] Phone Care Team Providers Care Diamond Selector Name Role Phone Laurie Recinosmana Primary Care Provider [phone] Allergies No known active allergies Medications warfarin (COUMADIN) 5 mg tablet Take 1 Tablet by mouth See Admin Instructions for 360 days. Follow coumadin clinic instructions. May cause heavy bleeding. Take at same time every day. Do not change dietary habits. 4 025 Active docusate sodium (COLACE) 100 mg capsule Take 1 capsule (100 mg total) by mouth 2 (two) times a day. Active inhaler, assist devices (E-Z SPACER MISC) 1 Units by Does not apply route as needed (for inhaler). 3 Active Bifidobacterium infantis (Align) 4 mg capsule 3 Active ipratropium-albu teroL (DUONEB) 0.5-2.5 mg/3 mL nebulizer solutionIndicati ons:chronic obstructive pulmonary disease with bronchospasms,re fractory symptoms with inhalers Take 3 mL by nebulization every 6 (six) hours. 360 mL 3 5 026 Active bisacodyL (Dulcolax, bisacodyl,) 10 mg suppository Insert 1 suppository (10 mg total) into the rectum if needed. 5 Active polyethylene glycol 3350 (MIRALAX ORAL) Take 17 g by mouth if needed. 5 Active traZODone (DESYREL) 50 mg tablet Take 1 tablet (50 mg total) by mouth at bedtime. 30 each 2 5 025 Active rosuvastatin (CRESTOR) 5 mg tablet Take 1 tablet (5 mg total) by mouth 1 (one) time each day. 90 tablet 1 5 Active omeprazole (PriLOSEC) [address] capsule Take 1 capsule (20 mg total) by mouth 1 (one) time each day. 90 capsule 1 5 Active metoprolol tartrate (LOPRESSOR) 25 mg tabletIndication s:Primary hypertension Take 1 tablet (25 mg total) by mouth 2 (two) times a day. 180 each 1 5 026 Active buPROPion SR (WELLBUTRIN SR) 150 mg 12 hr tabletIndication s:Depression, unspecified depression type Take 1 tablet (150 mg total) by mouth 2 (two) times a day. 180 each 1 5 026 Active amLODIPine-benaz epril (LOTREL) 5-20 mg per capsuleIndicatio ns:Primary hypertension Take 1 capsule by mouth 1 (one) time each day. 90 each 1 5 026 Active Anoro Ellipta 62.5-25 mcg/actuation inhaler Inhale 1 puff by mouth 1 (one) time each day. 1 each 3 5 026 Active Active Problems Problem Noted Date Diagnosed Date [...] Z-Savage. Squamous cell carcinoma lung , left (CMS/HCC V24, CMS/HCC V28) 06/30/2023 Overview (05/31/2024): 04/30/2023 status post [...] I explained how the size, shape, and waste/materials exchange specialist time affect her level of suspicion for [...] that I will have him see his emissions inspector for a risk assessment as well as a mounted police officer to give recommendations around anticoagulation around surgery. He certainly will have to stop his Coumadin 5 days prior to operation but the question of a bridge or what to bridge with. Aortic root dilatation (CMS/HCC V24) 01/24/2023 Coronary artery disease invo lving [place] coronary artery of [place] heart without angina pectoris 06/20/2022 Mixed hyperlipidemia 06/20/2022 Primary hypertension 04/23/2022 Coronary artery disease due to calcified coronar y lesion 03/18/2022 Lab test positive for detection of COVID-19 viru s 07/11/2021 Overview (05/31/2024): 07/03/21, ADMITTED [facility] 07/03/21 Thoracic aortic aneurysm (CMS/HCC V24) 08/28/202 1 Elevated LFTs 11/27/2020 IBS (irritable bowel syndrome) 02/03/2020 Overview (05/31/2024): Diarrhea predominant Chronic diarrhea 12/23/2019 Fatty liver 07/09/2019 Nephrolithiasis 07/09/2019 Diplopia 06/26/2017 Overview (05/31/2024): 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 Neg CN 2004. Small polyps x 2 at CN 05/13/2011: Pathology report: Tubular adenomas x 2. 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 Resolved Problems Problem Noted Date Diagnosed Date Resolved Date SBO (small bowel obstruction ) ([facility] V24, [facility] V28) 08/29/2024 09/16/2024 Encounters Date Type Department Care Team Description 02/24/2025 1:45 PM EDT Anticoagulation - Warfarin Visit [facility] [address] [place], [place] [phone] Deep vein thrombosis (DVT) of distal vein of left lower extremity, unspecified chronicity ([facility]/HCC V24, CMS/HCC V28) (Primary Dx); Factor V Leiden mutation ([facility] V24) 02/10/2025 2:15 PM EDT Office Visit Internal Medicine - [address] [phone] Le Recinos DO Primary hypertension (Primary Dx); Mixed hyperlipidemia; Chronic obstructive pulmonary disease, unspecified COPD type ([facility]/HCC V24, [facility]/HCC V28); Heartburn; Factor V Leiden mutation ([facility] V24); Chronic midline back pain, unspecified back location; Depression, unspecified depression type 02/10/2025 1:45 PM EDT Anticoagulation - Warfarin Visit Coumadin Clinic - [address] [phone] Deep vein thrombosis (DVT) of distal vein of left lower extremity, unspecified chronicity ([facility]/HCC V24, CMS/HCC V28) (Primary Dx); Factor V Leiden mutation ([facility] V24) 02/02/2025 1:00 PM EDT Office Visit Thoracic Surgery - [place] [address] [phone] Mariluz Ngo MD Pulmonary nodule (Primary Dx); Squamous cell carcinoma lung, left ([facility]/HCC V24, CMS/HCC V28) 02/01/2025 10:36 AM EDT - 02/01/2025 11:59 PM EDT Hospital Encounter [facility] Pulmonary [address] [place] [phone] Pulmonary nodule; SOB (shortness of breath) Discharge Disposition: Home or Self Care 02/01/2025 Telephone Pulmonology - [address] [phone] Collette Avalos MD 01/25/2025 2:00 PM EDT Office Visit Pulmonology - [place] [address] [place] [phone] Collette Avalos MD Pulmonary nodule (Primary Dx); SOB (shortness of breath) 01/25/2025 1:15 PM EDT Anticoagulation - Warfarin Visit Coumadin [facility] [address] [place] [phone] Deep vein thrombosis (DVT) of distal vein of left lower extremity, unspecified chronicity (CMS/HCC V24, CMS/HCC V28) (Primary Dx); Factor V Leiden mutation (CMS/HCC V24) 01/17/2025 1:00 PM EDT Anticoagulation - Warfarin Visit Coumadin [facility] [address] [place] [phone] Deep vein thrombosis (DVT) of distal vein of left lower extremity, unspecified chronicity (CMS/HCC V24, CMS/HCC V28) (Primary Dx); Factor V Leiden mutation (CMS/HCC V24) 01/14/2025 [facility] [address] [place] [phone] Divina Lozoya LPN Deep vein thrombosis (DVT) of distal vein of left lower extremity, unspecified chronicity (CMS/HCC V24, CMS/HCC V28) (Primary Dx); Factor V Leiden mutation ([facility]/HCC V24) 01/12/2025 2:17 PM EDT Anesthesia Event [facility] OR [address] [place] [phone] Aide Banda MD Madonick, Maria M, CRNA 01/12/2025 12:35 PM EDT - 01/12/2025 3:15 PM EDT Surgery [facility] OR [address] [place] [phone] Collette Avalos MD FLEXIBLE/ ROBOTIC ASSISTED BRONCHOSCOPY W. LLL FNA, TBBX, CRYO, BAL FOR CYTO AND CULTURE, 11R, 4R, LEVEL 7, 11L, FIDUCIAL PLACEMENT LLL [[id number] (CPT )] 01/12/2025 10:20 AM EDT - 01/12/2025 11:59 PM EDT Hospital Encounter [facility] X[facility] [address] [facility] [place] [phone] Pain Discharge Disposition: Home or Self Care 01/12/2025 10:15 AM EDT - 01/12/2025 5:37 PM EDT Hospital Encounter [facility] OR [address] [facility] [place] [address] Collette Avalos MD Lung nodule Discharge Disposition: Home or Self Care 01/10/2025 8:15 AM EDT [facility] [phone] Deep vein thrombosis (DVT) of distal vein of left lower extremity, unspecified chronicity ([facility] V24, [facility] V28) (Primary Dx); Factor V Leiden mutation ([facility] V24) 12/22/2024 Telephone Coumadin Clinic - [address] [phone] Divina Lozoya LPN 12/20/2024 Anticoagulation - Warfarin Visit Coumadin Clinic - [address] [phone] Divina Lozoya LPN Deep vein thrombosis (DVT) of distal vein of left lower extremity, unspecified chronicity ([facility] V24, CMS/[facility] V28) (Primary Dx); Factor V Leiden mutation ([facility] V24) 12/17/2024 3:30 PM EDT Consult Pulmonology - [address] [phone] Collette Avalos MD Pulmonary nodule; SOB (shortness of breath) from Last 3 Months Immunizations Name Administration Dates Next Due Influenza trivalent, 0.5mL (Fluad) 65yo and olde r 07/05/2021 Pneumococcal conjugate 20 va lent (Prevnar 20, PCV 20) 2mo and older 11/05/2022 Pneumococcal polysaccharide 23 valent (Pneumovax 23) 2yo and older 2010 Tdap Tetanus diptheria acell ular pertussis (Boostrix; Adacel) 7yo and older 04/04/2014,12/09/2008 Surgical History Surgery Date Site/Laterality Comments STOMACH SURGERY PROCEDURE:STOMACH SURGERY APPENDECTOMY PROCEDURE:APPENDECTOMY OTHER SURGICAL HISTORY PROCEDURE: ---- OTHER ----; COMMENT: BCC, SCC APPENDECTOMY PROCEDURE: HISTORICAL APPENDECTOMY COLONOSCOPY 11/01/2002 PROCEDURE: HISTORICAL COLONOSCOPY; COMMENT: 10 mm adenoma at 15 cm COLONOSCOPY 05/13/2011 PROCEDURE: HISTORICAL COLONOSCOPY; COMMENT: 2 small polyps TC and RC: Pathology report: Tubular adenomas x 2. Next colonoscopy in 5 years. COLONOSCOPY 12/05/2003 PROCEDURE: HISTORICAL COLONOSCOPY; COMMENT: no polyps ABDOMINAL SURGERY 2006 PROCEDURE: HISTORICAL ABDOMINAL SURGERY; COMMENT: lysis of adhesions for SBO; resect part of TI and cecum but not clear that ICV was resected. COLONOSCOPY 04/15/2017 PROCEDURE: HISTORICAL COLONOSCOPY; COMMENT: Random biopsies normal, 6 colonic polyps were tubular adenomas. MOLE REMOVAL 2007 PROCEDURE: HISTORICAL MOLE (REMOVAL OF); COMMENT: Dysplastic nevus 09/25 back (mild atypia) OTHER SURGICAL HISTORY 12/2006 PROCEDURE: HISTORICAL CA BASAL CELL; COMMENT: BCC 12/25 nose (baso-sqwuamous invasive) OTHER SURGICAL HISTORY PROCEDURE: HISTORICAL SQUAMOUS CELL CA; COMMENT: multiple COLONOSCOPY 05/01/2020 PROCEDURE: HISTORICAL COLONOSCOPY; COMMENT: Diminutive transverse colon polyps x2: Tubular adenoma x2. APPENDECTOMY PROCEDURE: WA APPENDECTOMY OTHER SURGICAL HISTORY 04/30/2023 Left PROCEDURE: WA THORACOSCOPY W/SEGMENTECTOMY; COMMENT: MARCIAL wedge w/ segmentectomy OTHER SURGICAL HISTORY PROCEDURE: HISTORY OTHER; COMMENT: Bronchscopy W/[facility] ELBOW SURGERY Right bone fragments LUNG REMOVAL, PARTIAL Medical History Medical History Date Comments Benign neoplasm of colon 05/13/2011 DX:Raj gn neoplasm of colon History of basal cell carcinoma 04/13/2007 DX:History of basal cell carcinoma; COMMENT: BCC 12/25 nose (baso-squamous invasive) History of dysplastic nevus 10/16/2007 DX:H istory of dysplastic nevus; COMMENT: Dysplastic nevus 09/25 back (mild atypia) History of squamous cell car cinoma of skin 12/31/2006 DX:History of squamous cell carcinoma of skin; COMMENT: SCC 03/08 neck (well-differentiated, invasive) 03/07 scalp (in situ at least) & chest (in situ) 09/27 left hand x 2 (in situ) 02/23 upper lip (well-differentiated, invasive)& face (left cheek) History of actinic keratoses 04/19/2008 DX: History of actinic keratoses; COMMENT: Actinic keratosis 03/08 forehead 03/28 left anabaptist COPD (chronic obstructive pu lmonary disease) ([facility] V24, [facility] V28) DX:COPD (chronic o bstructive pulmonary disease) (HCC) Lung cancer ([facility] V24, [facility] V28) status post resection Hypertension Hyperlipidemia Factor V Leiden ([facility] V24) History of DVT (deep vein thrombosis) Family History Medical History Relation Name Comments No Known Problems Daughter Diabetes Father Esophageal cancer Father Squamous cell carcinoma Maternal Grandfather Coronary artery disease Maternal Grandmother Hypertension Mother No Known Problems Sister 1 Coronary artery disease Sister 2 vasc ular issues No Known Problems Son Colon cancer Neg Hx Relation Name Status Comments Daughter Alive Father (Age 74) Maternal Grandfather Maternal Grandmother Mother (Age 82) Sister 1 Alive Sister 2 Alive Son Alive Social History Tobacco Use Types Packs/Day Years Used Date Smoking Tobacco: Former Cigarettes 2 60.8 0 08/18/1962 - 05/20/2023 Smokeless Tobacco: Never Tobacco Cessation:Counseling Given: Not Answered Alcohol Use Standard Drinks/Week Comments Not Currently 0 (1 standard drink = 0.6 oz pur e alcohol) Interpersonal Safety Answer Date Record ed Physical Abuse 01/12/2025 Verbal Abuse 01/12/2025 Sex and Gender Information Value Date Recorded Sex Assigned at Male 10/12/2024 11:57 AM EDT Legal Sex Male 3:08 AM EST Gender Identity Male 10/12/2024 11:57 AM EDT Sexual Orientation Not on file Obstetrics History Last Filed Vital Signs Vital Sign Reading Time Taken Comments Blood Pressure 130/68 02/10/2025 2:04 PM EDT A Pulse 87 02/10/2025 2:04 PM EDT Temperature 36.8 C (98.2 F) 02/02/2025 12:55 PM EDT Respiratory Rate 18 02/02/2025 12:5 5 PM EDT Oxygen Saturation 97% 02/02/2025 12: 55 PM EDT Inhaled Oxygen Concentration - - Weight 73.4 kg (161 lb 12.8 oz) 02/10/2025 2:04 PM EDT Height 180.3 cm (5' 11 ) 02/10/2025 2:04 PM EDT Body Mass Index 22.57 02/10/2025 2:04 PM EDT Plan of Treatment Upcoming Encounters Date Type Department Care Team (Late st Contact Info) Description 03/17/2025 1:30 PM EDT Anticoagulation - Warfarin Visit Coumadin Clinic - [facility] [address] [place] [phone] 06/03/2025 2:45 PM EST Office Visit Internal Medicine - [facility] [address] [place] [phone] Aide Linares NP [address] [place] [address] Health Maintenance Due Date Last Done Comments COVID-19 Vaccine (#1) 1955 Zoster Vaccines (1 of 2) 1969 RSV Immunization Adult Patients (1 - Risk 60-74 years 1-dose series) 2010 Medicare Annual Wellness Visit 06/29/2022 Social Influencers of Health Screening 06/29/2022 Lung Cancer Screening (Low Dose CT) 03/17/2024 03/17/2023, 03/15/2022, 03/12/2021 DTaP,Tdap,and Td Vaccines (3 - Td or Tdap) 04/04/2024 04/04/2014, 12/09/2008 Depression Screening 07/21/2024 Influenza Vaccine (#1) 2025 07/05/2021 Colorectal Cancer Screening: Colonoscopy 05/01/2025 05/01/2020 Hypertension/CHF/CAD Annual BMP Blood Test 12/20/2025 12/20/2024, 10/11/2024, 10/06/2024, Additional history exists Falls Risk Assessment 01/12/2026 01/12/2025 Cholesterol Screening (Lipid Panel) 07/28/2029 07/28/2024, 12/03/2022 Hepatitis C Screening Completed 01/25/2013 Abdominal Aortic Aneurysm (AAA) Screen Completed 05/30/2020 Pneumococcal Vaccine: 50+ Years Completed 11/05/2022, 2010 HIB Vaccines Aged Out No longer eligi ble based on patient's age to complete this topic HPV Vaccines Aged Out No longer eligi ble based on patient's age to complete this topic Hepatitis A Vaccines Aged Out No long er eligible based on patient's age to complete this topic Hepatitis B Vaccines Aged Out No long er eligible based on patient's age to complete this topic IPV Vaccines Aged Out No longer eligi ble based on patient's age to complete this topic MMR Vaccines Aged Out No longer eligi ble based on patient's age to complete this topic Meningococcal ACWY Vaccine Aged Out N o longer eligible based on patient's age to complete this topic Meningococcal B Vaccine Aged Out No l onger eligible based on patient's age to complete this topic RSV Immunization Patients Under 20 months Aged Out No longer eligible based on patient's age to complete this topic Varicella Vaccines Aged Out No longer eligible based on patient's age to complete this topic Medical Devices Implanted Type Area Special Effects Artist Device Identifier Shelf Expiration Date Model / Serial / Lot Tray Rad Cath 1lum Poly 4f - [id number] Implanted:Qty: 1 on 09/08/2024 by Savanah Go MD at [facility] Central/Chloe pheral Catheters and Ports Right: Arm BD VASCULAR ACCESS DEVICES FKA BARD ACCESS [id number] 06/19/2026 [id number] / / [id number] Marker Cobra Superlock - Sn/A - [id number] Implanted:Qty: 1 on 01/12/2025 by Collette Avalos MD at [facility] Imaging Implants Left: Lung [employer] SUPERD[employer]ENS[employer] [id number] 11/01/2028 [id number] / N/A / [id number] Description:Left lower lobe Procedures Procedure Name Priority Date/Time Associated Diagnosis Comments POC PROTIME INR BLOOD Routine 02/24/2025 1:32 PM EDT Deep vein thrombosis (DVT) of distal vein of left lower extremity, unspecified chronicity (CMS/HCC V24, CMS/HCC V28) Factor V Leiden mutation (CMS/HCC V24) POC PROTIME INR BLOOD Routine 02/10/2025 1:42 PM EDT Deep vein thrombosis (DVT) of distal vein of left lower extremity, unspecified chronicity (CMS/HCC V24, CMS/HCC V28) Factor V Leiden mutation (CMS/HCC V24) HC SPIROMETRY BRONCHODILATION RESPONSIVENESS PRE/POST BRONCHODILATOR ADMINISTRATION Routine 02/01/2025 11:34 AM EDT Pulmonary nodule SOB (shortness of breath) POC PROTIME INR BLOOD Routine 01/25/2025 1:04 PM EDT Deep vein thrombosis (DVT) of distal vein of left lower extremity, unspecified chronicity (CMS/HCC V24, CMS/HCC V28) Factor V Leiden mutation (CMS/HCC V24) POC PROTIME INR BLOOD Routine 01/17/2025 12:56 PM EDT Deep vein thrombosis (DVT) of distal vein of left lower extremity, unspecified chronicity (CMS/HCC V24, CMS/HCC V28) Factor V Leiden mutation (CMS/HCC V24) PROTHROMBIN TIME WITH INR Routine 01/14/2025 11:09 AM EDT Deep vein thrombosis (DVT) of distal vein of left lower extremity, unspecified chronicity (CMS/HCC V24, CMS/HCC V28) Factor V Leiden mutation (CMS/HCC V24) XR CHEST 1 VIEW STAT 01/12/2025 4:33 PM EDT OXYGEN THERAPY, ADULT Routine 01/12/2025 4:12 PM EDT OXYGEN THERAPY, ADULT Routine 01/12/2025 3:51 PM EDT XR FLUORO UP TO 1 HOUR (STATISTICS)(NO REPORT) Routine 01/12/2025 3:45 PM EDT Pain CULTURE RESPIRATORY WITH GRAM STAIN Routine 01/12/2025 2:54 PM EDT Lung nodule CULTURE AFB AND SMEAR Routine 01/12/2025 2:54 PM EDT Lung nodule CULTURE FUNGUS, MISCELLANEOUS SOURCE Routine 01/12/2025 2:54 PM EDT Lung nodule TH AN ENDOTRACHEAL(NO CHARGE) Routine 01/12/2025 2:40 PM EDT TISSUE EXAM Routine 01/12/2025 2:36 PM EDT Lung nodule NON-GYNECOLOGIC CYTOLOGY Routine 01/12/2025 2:34 PM EDT Lung nodule WA BRONCHOSCOPY RIGID/FLEXIBLE W/EBUS >=3 MEDIASTINAL/HILAR LYMPH NODES 01/12/2025 2:17 PM EDT Lung nodule WA BRONCHOSCOPY RIGID/FLEXIBLE W/TRANSBRONCHIAL LUNG BIOPSY(S) SINGLE LOBE 01/12/2025 2:17 PM EDT Lung nodule WA BRONCHOSCOPY RIGID/FLEXIBLE COMPUTER ASSISTED IMAGE GUIDED NAVIGATION 01/12/2025 2:17 PM EDT Lung nodule POC PROTIME INR BLOOD Routine 01/10/2025 8:36 AM EDT Deep vein thrombosis (DVT) of distal vein of left lower extremity, unspecified chronicity (CMS/HCC V24, CMS/HCC V28) Factor V Leiden mutation (CMS/HCC V24) CBC WITH AUTO DIFFERENTIAL Routine 12/20/2024 1:31 PM EDT Pulmonary nodule CBC AND DIFFERENTIAL Routine 12/20/2024 1:31 PM EDT Pulmonary nodule BASIC METABOLIC PANEL Routine 12/20/2024 1:31 PM EDT Pulmonary nodule PROTHROMBIN TIME WITH INR Routine 12/20/2024 1:31 PM EDT Pulmonary nodule SOB (shortness of breath) LIPID PANEL WITH REFLEX TO DIRECT LDL Routine 07/28/2024 3:53 PM EST Mixed hyperlipidemia CT LUNG SCREENING LOW DOSE Routine 03/17/2023 3:36 PM EDT Personal history of nicotine dependence HM ABDOMINAL AORTIC ANEURYSM SCRREN Routine 05/30/2020 HM COLONOSCOPY Routine 05/01/2020 HEPATITIS C SCREENING Routine 01/25/2013 from Last 3 Months or Most Recently Relevant to Health Maintenance Results * POC Protime INR Blood (02/24/2025 1:32 PM EDT) Only the most recent of5 resultswithin the time period is included. Lot Number INR POC 2.2 Prothrombin Time POC Exp Date Blood 02/24/2025 1:32 PM EDT Angus Fernandez MD POINT OF CARE TEST ENTER/EDIT ORDERABLES Final Result * Pulmonary function testing: Carbon Monoxide Diffusing Capacity, Spirometry with Bronchodilator, Nitrogen Wash Out (02/01/2025 11:34 AM EDT) Narrative Toshia Hernandez MD - 02/11/2025 3:17 PM EDT Table formatting from the original result was not included. Images from the original result were not included. [facility] [address] [place] [id number] Pulmonary Functions Report Date of service: 02/01/25 Patient Name: Yuriy Joy Date of : Age: 74 y.o. Gender: male Ordering Provider: Collette Avalos MD Diagnosis listed on Order: SOB (shortness of breath), Pulmonary nodule Reason for Exam: Order Questions Answers Reason for Exam: COPD Which PFTs would you like to perform? Carbon Monoxide Diffusing Capacity,Spirometry with Bronchodilator,Nitrogen Wash Out Pulmonary function test interpretation. Spirometry done today reveals FEV1 of 1.57 which is 51.6% of the predicted value, FVC is 3.35 which is 82% of the predicted value, FEV1 to FVC ratio is 61.6% of the predicted value, there is no bronchodilator response. Flow volume is consistent with obstructive pattern. Static lung volumes including total lung capacity is moderately reduced. Diffusion lung capacity is moderately reduced however was mildly reduced after correction for alveolar volume. This study is consistent with moderate obstructive lung disease without bronchodilator response along with concomitant moderate restrictive lung disease for which clinical correlation is recommended. Collette Avalos MD PFT ORDERABLES Final Resu lt * (ABNORMAL) Prothrombin time with INR (01/14/2025 11:09 AM EDT) Only the most recent of2 resultswithin the time period is included. Protime 20.4(H) 10.6 - 13.9 sec LAB COAGULATION METHOD 01/14/2025 3:37 PM EDT [facility] INR 1.6 LAB COAGULATION METHOD 01/14/2025 3:37 PM EDT [facility] Blood Venous blood specimen / Unknown Venipuncture / Unknown 01/14/2025 11:09 AM EDT 01/14/2025 11:09 AM EDT Le Recinos DO LAB BLOOD ORDERABLES Final Res ult [facility] [address] [place] [address], [place] [phone] * XR Chest 1 View (01/12/2025 4:33 PM EDT) Anatomical Region Laterality Modality Body Radiographic Susi ging 01/12/2025 4:41 PM EDT Impressions 01/12/2025 4:55 PM EDT FINDINGS/IMPRESSION: Postsurgical changes left superior hilar region. Fiducial marker left upper lobe. Left apical bulla with surrounding pleural thickening. Cardiac silhouette within normal limits. Osseous elements intact. Report reviewed and signed by : Dr. Santy Lorenzana on 01/12/2025 4:55 PM. Workstation Name - [id number] -------- FINAL REPORT -------- Dictated By: Santy Lorenzana Dictated Date: 01/12/2025 16:41 ET Assigned Physician: Santy Lorenzana Reviewed and Electronically Signed By: Santy Lorenzana Signed Date: 01/12/2025 16:55 ET Workstation ID: [id number] Transcribed By: Self Edit Transcribed Date: 01/12/2025 16:41 ET Narrative 01/12/2025 4:55 PM EDT EXAM: XR CHEST 1 VIEW 01/12/2025 4:20 PM HISTORY: 74 years Male postoperative care TECHNIQUE: XR CHEST 1 VIEW COMPARISON: None. Procedure Note Santy Lorenzana MD - 01/12/2025 EXAM: XR CHEST 1 VIEW 01/12/2025 4:20 PM HISTORY: 74 years Male postoperative care TECHNIQUE: XR CHEST 1 VIEW COMPARISON: None. IMPRESSION: FINDINGS/IMPRESSION: Postsurgical changes left superior hilar region. Fiducial marker left upper lobe. Left apical bulla with surrounding pleural thickening. Cardiac silhouette within normal limits. Osseous elements intact. Report reviewed and signed by : Dr. Santy Lorenzana on 01/12/2025 4:55 PM.Workstation Name - [id number] -------- FINAL REPORT -------- Dictated By: Santy Lorenzana Dictated Date: 01/12/2025 16:41 ET Assigned Physician: Santy Lorenzana Reviewed and Electronically Signed By: Santy Lorenzana Signed Date: 01/12/2025 16:55 ET Workstation ID: [id number] Transcribed By: Self Edit Transcribed Date: 01/12/2025 16:41 ET us Collette Avalos MD IMG XR PROCEDURES Final Re sult * XR Fluoro Up To 1 Hour (Statistics)(No Report) (01/12/2025 3:45 PM EDT) Narrative RIS PACS/VR - 01/12/2025 3:45 PM EDT This order has been auto-finalized and does not contain a result. us Collette Avalos MD IMG FLUOROSCOPY PROCEDURES Final Result RIS PACS/VR * Culture respiratory with gram stain (01/12/2025 2:54 PM EDT) Culture, Respiratory No growth at 3 days 01/15/2025 10:[address] [facility] Gram Stain Result Many WBCs present 01/15/2025 10:[address] [facility] Gram Stain Result No organisms seen 01/15/2025 10:[address] [facility] Wash Structure of lower lobe of left lung / Unknown 01/12/2025 2:54 PM EDT 01/12/2025 3:53 PM EDT Comment:No concern for TB Collette Avalos MD LAB MICROBIOLOGY - GENERAL ORDERABLES Final Result [facility] [address] [place] [address], [place] [phone] * Culture AFB and smear (01/12/2025 2:54 PM EDT) Culture AFB No AFB isolated after 6 weeks. 02/24/2025 9:[address] [facility] AFB Stain No Acid fast bacilli seen 02/24/2025 9:[address] [facility] Wash Structure of lower lobe of left lung / Unknown 01/12/2025 2:54 PM EDT 01/12/2025 3:53 PM EDT Comment:No concern for TB Collette Avalos MD LAB MICROBIOLOGY - GENERAL ORDERABLES Final Result [facility] [address] [place] [address], [place] [phone] * Culture fungus, miscellaneous source (01/12/2025 2:54 PM EDT) Culture, Fungus No Yeast or Mold isolated after 4 Weeks. 02/10/2025 12:[address] [facility] Wash Structure of lower lobe of left lung / Unknown 01/12/2025 2:54 PM EDT 01/12/2025 3:53 PM EDT Comment:No concern for TB Collette Avalos MD LAB MICROBIOLOGY - GENERAL ORDERABLES Final Result [facility] [address] [place] [address], [place] [phone] * TH AN ENDOTRACHEAL(NO CHARGE) (01/12/2025 2:40 PM EDT) Jocelyne Avendaño CRNA - 01/12/2025 2:40 PM EDT Jocelyne Negron CRNA 01/12/2025 2:41 PM General Information and Staff Patient location during procedure: OR Resident/DRUM BARKER OPERATOR: Jocelyne Negron CRNA Performed: resident/DRUM BARKER OPERATOR/CAA Performed by: Jocelyne Negron CRNA Authorized by: Aide Banda MD Intubation Urgency: elective Final Airway Details Successful airway: ETT Cuffed: yes Successful intubation technique: direct laryngoscopy Endotracheal tube insertion site: oral Blade: Fabien Blade size: #3 ETT size (mm): 8.5 Cormack-Lehane Classification: grade I - full view of glottis Placement verified by: chest auscultation and capnometry Placement verification comments: (Sugeon confirmed with bronch;) Measured from: lips ETT to lips (cm): 24 Number of attempts at approach: 1Final airway type: endotracheal airway Indications and Patient Condition Indications for airway management: anesthesia Spontaneous ventilation: present Sedation level: Yes Preoxygenated: yes Soft Tissue Damage: No Dentition Unchanged: Yes Patient position: neutral (hob 30 degrees) Start Time: 01/12/2025 2:25 PMStop Time: 01/12/2025 2:26 PM us Aide Banda MD ANESTHESIA ORDERABLES Final Result * Tissue exam (01/12/2025 2:36 PM EDT) Final Diagnosis Lung, left lower lobe, cryobiopsy: Lung parenchyma with patchy inflammation. No evidence of malignancy. Note: Multiple additional levels were examined. This case was shown in an intradepartmental conference on 01/14/2025. The above diagnosis reflects the consensus opinion. 01/14/2025 4:[address] [facility] Gross Description A. Lung, Left Lower Lobe, CRYO LEFT LOWER LOBE: The specimen is received in formalin, labeled left lower lobe , and consists of a a 1.0 x 0.5 x 0.2 cm aggregate of omer-brown irregular and friable tissue fragments. The specimen is entirely submitted in 1 cassette. Please note the specimen is delicate and may not survive processing. Please note the specimen is friable and may fragment following processing. EM 01/13/25 (5 pieces) 01/14/2025 4:[address] [facility] Disclaimer The technical components of [place] [address] CLIA # [id number] 01/14/2025 4:[address] [facility] Tissue Structure of lower lobe of left lung / Unknown 01/12/2025 2:36 PM EDT 01/13/2025 7:14 AM EDT Collette Avalos MD LAB PATHOLOGY ORDERABLES F inal Result [facility] [address] [place] [address], * Non-gynecologic cytology (01/12/2025 2:34 PM EDT) Final Diagnosis A. Lung, left lower lobe, fine-needle aspiration (ThinPrep and cell block): Rare atypical keratinizing squamous cells in a background of inflammation and necrotic debris. B. Lymph node, 11R, fine needle aspiration (ThinPrep and cell block): Negative for malignancy. Lymphocytes present, consistent with lymph node sampling. C. Lung, left lower lobe, washing (ThinPrep and cell block): Negative for malignancy. Paucicellular specimen showing respiratory epithelial cells and alveolar macrophages present. D. Lymph node, 4R, fine needle aspiration (ThinPrep and cell block): Negative for malignancy. Lymphocytes present, consistent with lymph node sampling. E. Lymph node, Level 7, fine needle aspiration (ThinPrep and cell block): Negative for malignancy. Lymphocytes present, consistent with lymph node sampling. F. Lymph node, 11L, fine needle aspiration (ThinPrep and cell block): Negative for malignancy. Lymphocytes present, consistent with lymph node sampling. Refer to surgical case [id number]. 01/14/2025 4:[address] [facility] Specimen A Adequacy Satisfactory for evaluation 01/14/2025 4:[address] [facility] Specimen B Adequacy Satisfactory for evaluation 01/14/2025 4:29 PM [facility] Specimen C Adequacy Satisfactory for evaluation 01/14/2025 4:29 PM [facility] Specimen D Adequacy Satisfactory for evaluation 01/14/2025 4:29 PM [facility] Specimen E Adequacy Satisfactory for evaluation 01/14/2025 4:[address] [facility] Specimen F Adequacy Satisfactory for evaluation 01/14/2025 4:[address] [facility] Clinical Information IN CYTO 01/14/2025 4:[address] [facility] Gross Description A. Lung, Left Lower Lobe, FNA LEFT LOWER LOBE: Received: 38 cc pink CytoLyt with white flecks and tissue ragments for ThinPrep and Cell Block. B. Lymph Node, 11R FNA: Received: 36 cc pink CytoLyt with tissue fragments for ThinPrep and Cell Block. C. Lung, Left Lower Lobe, WASH LEFT LOWER LOBE: Received: 34 cc clear CytoLyt with one tissue fragment for ThinPrep and Cell Block. D. Lymph Node, 4R FNA: Received: 36 cc pink CytoLyt with tissue fragments for ThinPrep and Cell Block. E. Lymph Node, Level 7 FNA: Received: 36 cc light pink CytoLyt with tissue fragments for ThinPrep and Cell Block. F. Lymph Node, 11L FNA: Received: 34 cc pink CytoLyt with tissue fragments for ThinPrep and Cell Block. 01/14/2025 4:[address] [facility] Disclaimer The technical components of this case were performed at [address] [address] CLIA # [id number] 01/14/2025 4:[address] [facility] Fine Needle Aspirate Structure of lower lobe of left lung / Unknown 01/12/2025 2:34 PM EDT 01/12/2025 5:16 PM EDT Comment:IN CYTO Specimen obtained by lavage (specimen) Structure of lower lobe of left lung / Unknown 01/12/2025 2:35 PM EDT 01/12/2025 5:16 PM EDT Comment:IN CYTO Specimen obtained by fine needle aspiration procedure (specimen) Lymph node specimen / Unknown 01/12/2025 3:18 PM EDT 01/12/2025 5:16 PM EDT Comment:In cyto Specimen obtained by fine needle aspiration procedure (specimen) Lymph node specimen / Unknown 01/12/2025 3:19 PM EDT 01/12/2025 5:16 PM EDT Comment:In cyto Specimen obtained by fine needle aspiration procedure (specimen) Lymph node specimen / Unknown 01/12/2025 3:19 PM EDT 01/12/2025 5:16 PM EDT Comment:In cyto Specimen obtained by fine needle aspiration procedure (specimen) Lymph node specimen / Unknown 01/12/2025 3:19 PM EDT 01/12/2025 5:16 PM EDT Comment:In cyto us Collette Avalos MD LAB CYTOLOGY ORDERABLES Fi nal Result [facility] [address] [place] [address], [place] [phone] * (ABNORMAL) CBC auto differential (12/20/2024 1:31 PM EDT) WBC 6.1 4.8 - 10.8 K/mcL LAB HEMETOLOGY METHOD 12/20/2024 3:37 PM EDT [facility] RBC 4.40(L) 4.50 - 5.50 M/mcL LAB HEMETOLOGY METHOD [facility] Hemoglobin 12.2(L) 13.5 - 17.5 g/dL LAB HEMETOLOGY METHOD 12/20/2024 3:37 [facility] Hematocrit 37.3(L) 42.0 - 54.0 % LAB HEMETOLOGY METHOD 12/20/2024 3:37 PM EDT [facility] MCV 84.6 79.0 - 98.0 FL LAB HEMETOLOGY METHOD 12/20/2024 3:37 PM [facility] MCH 27.7 27.0 - 32.0 pcg LAB HEMETOLOGY METHOD 12/20/2024 3:37 PM [facility] MCHC 32.7 32.0 - 37.0 g/dL LAB HEMETOLOGY METHOD 12/20/2024 3:37 PM [facility] RDW 14.3 11.0 - 15.0 % LAB HEMETOLOGY METHOD 12/20/2024 3:37 PM [facility] Platelets 194 130 - 400 K/mcL LAB HEMETOLOGY METHOD 12/20/2024 3:37 PM [facility] MPV 9.8 7.0 - 11.0 FL LAB HEMETOLOGY METHOD 12/20/2024 3:37 PM [facility] NRBC 0.0 <1.0 % LAB HEMETOLOGY METHOD 12/20/2024 3:37 PM [facility] NRBC Absolute 0.00 <0.10 K/mcL LAB HEMETOLOGY METHOD 12/20/2024 3:37 PM [facility] Neutrophils Relative 53.8 % LAB HEMETOLOGY METHOD 12/20/2024 3:37 PM EDT [facility] Lymphocytes Relative 30.8 % LAB HEMETOLOGY METHOD 12/20/2024 3:37 PM EDT [facility] Monocytes Relative 9.7 % LAB HEMETOLOGY METHOD 12/20/2024 3:37 PM EDT [facility] Eosinophils Relative 4.4 % LAB HEMETOLOGY METHOD 12/20/2024 3:37 PM EDT [facility] Basophils Relative 0.8 % LAB HEMETOLOGY METHOD 12/20/2024 3:37 PM EDT [facility] Immature Granulocytes Relative 0.5 % LAB HEMETOLOGY METHOD 12/20/2024 3:37 PM [facility] Neutrophils Absolute 3.26 1.50 - 7.00 K/mcL LAB HEMETOLOGY METHOD 12/20/2024 3:37 PM [facility] Lymphocytes Absolute 1.87 1.00 - 5.00 K/mcL LAB HEMETOLOGY METHOD 12/20/2024 3:37 PM EDT [facility] Monocytes Absolute 0.59 0.20 - 1.00 K/mcL LAB HEMETOLOGY METHOD 12/20/2024 3:37 PM EDT [facility] Eosinophils Absolute 0.27 0.00 - 0.50 K/mcL LAB HEMETOLOGY METHOD 12/20/2024 3:37 PM EDT [facility] Basophils Absolute 0.05 0.00 - 0.20 K/mcL LAB HEMETOLOGY METHOD 12/20/2024 3:37 PM T [facility] Immature Granulocytes Absolute 0.03 0.00 - 0.03 K/mcL LAB HEMETOLOGY METHOD 12/20/2024 3:37 PM [facility] Blood Venous blood specimen / Unknown Venipuncture / Unknown 12/20/2024 1:31 PM EDT 12/20/2024 1:35 PM EDT us Collette Avalos MD LAB BLOOD ORDERABLES Final Result [facility] [address] [place] [address], * (ABNORMAL) Basic metabolic panel (12/20/2024 1:31 PM EDT) Sodium 138 133 - 145 mmol/L LAB CHEMISTRY METHOD 12/20/2024 4:33 PM EDT [facility] Potassium 3.9 3.5 - 5.5 mmol/L LAB CHEMISTRY METHOD 12/20/2024 4:33 PM [facility] Chloride 104 96 - 110 mmol/L LAB CHEMISTRY METHOD 12/20/2024 4:33 PM [facility] CO2 27 21 - 32 mmol/L LAB CHEMISTRY METHOD 12/20/2024 4:33 PM [facility] Anion Gap 7 3 - 11 LAB CHEMISTRY METHOD 12/20/2024 4:33 PM [facility] Glucose 107(H) 70 - 100 mg/dL LAB CHEMISTRY METHOD 12/20/2024 4:33 PM [facility] BUN 11 5 - 25 mg/dL LAB CHEMISTRY METHOD 12/20/2024 4:33 PM [facility] Creatinine 0.81 0.70 - 1.30 mg/dL LAB CHEMISTRY METHOD 12/20/2024 4:33 PM [facility] eGFR 93 >=60 mL/min/1. 73m2 LAB CHEMISTRY METHOD 12/20/2024 4:33 PM [facility] Comment:Calculation based on the Chronic Kidney Disease Epidemiology Collaboration (CKD-EPI) equation refit without adjustment for race. BUN/Creatinine Ratio 13.6 LAB CHEMISTRY METHOD 12/20/2024 4:33 PM [facility] Calcium 9.1 8.5 - 10.5 mg/dL LAB CHEMISTRY METHOD 12/20/2024 4:33 PM EDT [facility] Blood Venous blood specimen / Unknown Venipuncture / Unknown 12/20/2024 1:31 PM EDT 12/20/2024 1:35 PM EDT us Collette Avalos MD LAB BLOOD ORDERABLES Final Result [facility] [address] [place] [address], [place] [phone] * (ABNORMAL) Lipid panel with reflex to direct LDL (07/28/2024 3:53 PM EST) Cholesterol 162 0 - 200 mg/dL LAB CHEMISTRY METHOD 07/28/2024 6:57 PM EST [facility] Triglycerides 212(H) 0 - 150 mg/dL LAB CHEMISTRY METHOD 07/28/2024 6:57 PM EST [facility] HDL 50 >=40 mg/dL LAB CHEMISTRY METHOD 07/28/2024 6:57 PM EST [facility] LDL Calculated 70 0 - 100 mg/dL LAB CHEMISTRY METHOD 07/28/2024 6:57 PM [facility] VLDL Cholesterol Hermelindo 42.4 mg/dL LAB CHEMISTRY METHOD 07/28/2024 6:57 PM [facility] Non HDL Chol. (LDL+VLDL) 112 <145 mg/dL LAB CHEMISTRY METHOD 07/28/2024 6:57 PM EST [facility] Chol/HDL Ratio 3.2 0.0 - 4.4 LAB CHEMISTRY METHOD 07/28/2024 6:57 PM [facility] Blood Venous blood specimen / Unknown Venipuncture / Unknown 07/28/2024 3:53 PM EST 07/28/2024 3:53 PM EST Ca Durán NP LAB BLOOD ORDERABLES Final Resul t [facility] [address] [place] [address], [place] [phone] * CT LUNG SCREENING LOW DOSE (03/17/2023 3:36 PM EDT) Anatomical Region Laterality Modality Computed Tomogra phy 03/17/2023 1:40 PM EDT Narrative 03/17/2023 3:36 PM EDT [facility] Diagnostic Imaging Department [address] [place] [address] Patient: YURIY JOY /Age/Sex: 1950 - 72 - M Unit#: [id number] Location/Status: SPDICATLS/REG CLI Mnemonic/Ordering Site: [facility] Ordering Physician: MARILUZ NGO MD CT Lung Screening Low Dose - 03/17/23 - 1346 Report Status:Signed History: History of smoking. Cancer screening Comparison: 03/15/2022, 03/12/2021, 03/10/2020 Technique: Helical volumetric imaging of the thorax was performed, using low- dose technique, without IV contrast. Iterative reconstruction technique Findings: Mediastinum: Normal sized heart and great vessels. No mediastinal lymphadenopathy. The central airways are clear. Lungs and Airways: Subpleural scarring in the anterior left upper lobe. There is an 8 x 5 mm nodular density adjacent to the scarring (series 3 image 39). This previously measured 5 x 4 mm 03/15/2022 and 3 mm in 2020. Abdomen: This study was performed without contrast and with lower than standard dose. These factors reduce the sensitivity for detection of small lesions in the upper abdomen. Soft tissues and bones: Degenerative changes with no acute abnormality. Impression: There is an enlarging 7 mm nodular density associated with the subpleural scarring in the anterior left upper lobe as above. Lung Rads Category: 4A - Suspicious - Management with 3-month LDCT surveillance or PET/CT recommended. Dictating Physician: JAME ZAMORA MD Electronically Signed by: JAME ZAMORA MD Dic Date/Time: 03/17/23 1523 Sign date/Time: 03/17/23 1536 Procedure Note Jame Zamora MD - 08/26/2023 [facility] Diagnostic Imaging Department [address] [place], [place] [id number] Patient: YURIY JOY Lala /Age/Sex: 1950 - 72 - M Unit#: [id number] [facility] Mnemonic/Ordering Site: [facility] Ordering Physician: MARILUZ NGO MD CT Lung Screening Low Dose - 03/17/23 - 1346 Report Status:Signed History: History of smoking. Cancer screening Comparison: 03/15/2022, 03/12/2021, 03/10/2020 Technique: Helical volumetric imaging of the thorax was performed, usinglow- dose technique, without IV contrast. Iterative reconstruction technique Findings: Mediastinum: Normal sized heart and great vessels. No mediastinal lymphadenopathy. The central airways are clear. Lungs and Airways: Subpleural scarring in the anterior left upper lobe.There is an 8 x 5 mm nodular density adjacent to the scarring (series 3 image39). This previously measured 5 x 4 mm 03/15/2022 and 3 mm in 2020. Abdomen: This study was performed without contrast and with lower thanstandard dose. These factors reduce the sensitivity for detection of small lesionsin the upper abdomen. Soft tissues and bones: Degenerative changes with no acute abnormality. Impression: There is an enlarging 7 mm nodular density associated with thesubpleural scarring in the anterior left upper lobe as above. Lung Rads Category: 4A - Suspicious - Management with 3-month LDCTsurveillance or PET/CT recommended. Dictating Physician: JAME ZAMORA MD Electronically Signed by: JAME ZAMORA MD Dic Date/Time: 03/17/23 1523 Sign date/Time: 03/17/23 1536 Mariluz Ngo MD IMG CT PROCEDURES Final Result * Abdominal Aortic Aneurysm Screen (05/30/2020) Pathologist [facility] Abdominal Aortic Aneurysm (AAA) Screening abstracted, no interpretation Anatomical Region Laterality Modality Other [facility] Provider HEALTH MAINTENANCE Final Result * Colonoscopy (05/01/2020) [facility] Colonoscopy abstracted, no interpretation Anatomical Region Laterality Modality Other [facility] Pancho BRICE HEALTH MAINTENANCE Final Result * Hepatitis C Screening (01/25/2013) [facility] Hepatitis C Screening abstracted [facility] Pancho BR[facility] HEALTH MAINTENANCE Final Result from Last 3 Months or Most Recently Relevant to Health Maintenance Insurance BLUE CROSS - [place] MEDICARE ADVANTAGE Advance Directives Documents on File Type Date Recorded Patient Respiratory Supervisor Expl anation Health Care Decision (hx) 06/11/2023 AD TURNER DIRECTIVE Health Care Decision (hx) 06/11/2023 AD TURNER DIRECTIVE Health Care Decision (hx) 06/11/2023 AD TURNER DIRECTIVE Health Care Decision (hx) 06/11/2023 AD TURNER DIRECTIVE Health Care Decision (hx) 06/11/2023 Britni Gamez ADVANCE DIRECTIVE * Full Code - Default (Latest Code Status on File) Date Activated Date Inactivated Comments 01/12/2025 11:07 AM 01/12/2025 8:01 PM This is ord er is used when code status has not been discussed with the patient, or code status is otherwise unknown/unconfirmed To update the patient's code status, place a code status order. Do not modify or discontinue any currently active code status orders. * Full Code - Default Date Activated Date Inactivated Comments 08/29/2024 8:38 PM 09/18/2024 6:29 PM This is order is used when code status has not been discussed with the patient, or code status is otherwise unknown/unconfirmed To update the patient's code status, place a code status order. Do not modify or discontinue any currently active code status orders. Healthcare Agents on File Name Relationship Healthcare Agent Relationship Communication Britni Joy [facility] Health Care Agent Aide Vera Daughter Health Care Agent Care Teams Diamond Selector Relationship Specialty Start Date End Date Le Recinos DO [address] [place] [address] PCP - General 04/28/24
--- OUTSIDE RECORDS SUMMARY | 2025-03-16 15:26 | XMS_ITS | Encounter Summary ---
Author Organization [facility] Address [address] [place] [address] Care Team Providers Care Land Agent Name Role Phone JorjeLe Primary Care Provider [phone] Encounter Details Date Type Department Care Team (Late st Contact Info) Description 10/29/2024 Lab Requisition [facility] - Main Lab [address] [place] [address] Bernadine Florez MD [address] [place], [place] [id number] Unspecified atrial fibrillation (CMS/HCC V24, CMS/HCC V28) [...] Anticoagulation - Warfarin Visit Coumadin Clinic - [facility] [address] [place] [address] 06/03/2025 2:45 PM EST Office Visit Internal Medicine - [facility] [address] [place] [phone] Aide Linares, LEWIS [address] [place] [address] documented as of this encounter Visit Diagnoses Diagnosis Unspecified atrial fibrillation (CMS/HCC V24, CMS/HCC V28) documented in this encounter Additional Health Concerns Infection Onset Date Last Indicated Resolved Time Tuberculosis Rule-Out 01/12/2025 01/12/20252024 7:05 PM EDT documented as of this encounter Care Teams Land Agent Relationship Specialty Start Date End Date Le Recinos DO [address] [facility] [place] [address] PCP - General 04/28/24 documented as of this encounter
--- OUTSIDE RECORDS SUMMARY | 2025-03-16 15:26 | XMS_ITS | Encounter Summary ---
Author Organization [facility] Address [address] [place] [address] Care Team Providers Care Elevator Installer Apprentice Name Role Phone Toby Ortiz MD Primary Care Provider Unavail able Caterina Sena MD Primary Care Provider Ben Pantoja MD Unavailable [phone] Ben Martin MD Unavailable [phone] Jason Lin MD Unavailable Sania Browning PA-C Unavailable [phone] Juan Miguel Solis PA-Ellis Unavailable [phone] [facility] Unavaila ble Unavailable Le Recinos DO Primary Care Provider [phone] Reason for Visit * Reason Comments E-prescribe Rx Request Encounter Details Date Type Department Care Team Description 10/08/2020 Refill Medicine/Pediatrics [address] [address] Toby Ortiz MD E-prescribe Rx Request Social [...] Never 08/19/2023 How often do you attend shinto or orthodox serv ices? Never 08/19/2023 Do you belong to any clubs o r organizations such as shinto groups, unions, fraternal or athletic groups, or [...] place to sleep or slept in a nursing home (including now)? No 08/19/2023 Sex Assigned at Date Recorded Not on file Job Start Date Occupation Industry Not on file Not on file Not on file documented as of this encounter Miscellaneous Notes * Telephone Encounter - Aida Browning - 10/09/2020 12:03 PM EDT Patient would like script to be: E-PRESCRIBED/FAXED TO PHARMACY WHEN WAS THE PATIENT'S LAST APPOINTMENT IN ADULT MEDICINE? 08/25/20 WHEN WAS THE LAST TIME THE PATIENT SAW THEIR PCP? 04/19/20 Does patient have an upcoming appointment? no (THE MEDICATION REQUESTED IS ON THE MED [...] N/A Patients current insurance carrier is: Payor: [place] / Plan: [facility] MDCR-ADV PPO $25/$45 [place] / Product Type: MEDICARE [id number] documented in this encounter Plan of Treatment Not on file documented as of this encounter Visit Diagnoses Not on filedocumented in this encounter Care Teams Elevator Installer Apprentice Relationship Specialty Start Date End Date Toby Ortiz MD PCP - General Internal Medicine 07/07/15 12/11/21 Caterina Sena MD PCP - General Family Practice 12/12/21 04/27/24 Le Recinos, DO [address] [place] [address] PCP - General Internal Medicine 04/28/24 Ben Martin MD Specialist Cardiology 03/22/22 08/18/23 Ben Martin MD Specialist Cardiology 03/22/22 Jason Lin MD Lung Cancer Avionics Systems Engineer 04/04/23 Sania Browning PA-C [address] [address] Thoracic Surgery 05/13/23 Juan Miguel Solis PA-C [address] [address] Specialist Thoracic Surgery 05/16/23 [place] [place] [facility] 08/19/23 documented as of this encounter
--- OUTSIDE RECORDS SUMMARY | 2025-03-16 15:26 | XMS_ITS | Encounter Summary ---
Author Organization [facility] Address [address] [place] [address] Care Team Providers Care Sample Grinder Name Role Phone Caterina Sena MD Primary Care Provider Ben Pantoja MD Unavailable [phone] Ben Martin MD Unavailable [phone] Jason Lin MD Unavailable Sania Browning PA-C Unavailable [phone] Juan Miguel Solis PA-C Unavailable [phone] [facility] Unavaila ble Unavailable Le Recinos DO Primary Care Provider [phone] Encounter Details Date Type Department Care Team Description 04/07/2023 Orders Only [facility] Lung Screening Program [place] [address] [facility] [address] [place] [address] Juan Miguel Solis PA-C 299 [facility] [address] [place] [address] Pulmonary nodule Social History Tobacco Use Types Packs/Day Years [...] Never 08/19/2023 How often do you attend mosque or muslim serv ices? Never 08/19/2023 Do you belong to any clubs o r organizations such as mosque groups, unions, fraternal or athletic groups, or [...] place to sleep or slept in a alf (including now)? No 08/19/2023 Sex Assigned at [...] as of this encounter Visit Diagnoses Diagnosis Pulmonary nodule Solitary pulmonary nodule documented in this encounter Care Teams Sample Grinder Relationship Specialty Start Date End Date aCterina Sena MD PCP - General Family Practice 12/12/21 04/27/24 Le Recinos DO [address] [place] [address] PCP - General Internal Medicine 04/28/24 Ben Martin MD Specialist Cardiology 03/22/22 08/18/23 Ben Martin MD Specialist Cardiology 03/22/22 Jason Lin MD Lung Cancer Director Of Institutional Research 04/04/23 Sania Browning PA-C [address] [address] Thoracic Surgery 05/13/23 Juan Miguel Solis PA-C [address] [address] Specialist Thoracic Surgery 05/16/23 [facility] 08/19/23 documented as of this encounter
--- OUTSIDE RECORDS SUMMARY | 2025-03-16 15:26 | XMS_ITS | Encounter Summary ---
Author Organization [facility] Address [address] [place] [address] Care Team Providers Care Fisher Name Role Phone Toby Ortiz MD Primary Care Provider Unavail able Caterina Sena MD Primary Care Provider Ben Pantoja MD Unavailable [phone] Ben Martin MD Unavailable [phone] Jason Lin MD Unavailable Sania Browning PA-C Unavailable [phone] Juan Miguel Solis PA-C Unavailable [phone] [facility] Unavaila ble Unavailable Le Recinos DO Primary Care Provider [phone] Encounter Details Date Type Department Care Team Description 03/10/2020 Flotation Tender Helper Report Medical Records [address] [place] [address] [facility] [address] [place] [address] Social History Tobacco Use Types Packs/Day Years [...] Never 08/19/2023 How often do you attend christian or methodist serv ices? Never 08/19/2023 Do you belong to any clubs o r organizations such as christian groups, unions, [employer]ing [employer] or athletic groups, or school groups? No [...] place to sleep or slept in a prison (including now)? No 08/19/2023 Sex Assigned at Date Recorded Not on file Job Start Date Occupation Industry Not on file Not on file Not on file documented as of this encounter Plan of Treatment Not on file documented as of this encounter Visit Diagnoses Not on filedocumented in this encounter Care Teams Fisher Relationship Specialty Start Date End Date Toby Ortiz MD PCP - General Internal Medicine 07/07/15 12/11/21 Caterina Sena MD PCP - General Family Practice 12/12/21 04/27/24 Le Recinos, DO [address] [place] [address] PCP - General Internal Medicine 04/28/24 Ben Martin MD Specialist Cardiology 03/22/22 08/18/23 Ben Martin MD Specialist Cardiology 03/22/22 Jason Lin MD Lung Cancer Curtains And Draperies Salesperson 04/04/23 Sania Browning PA-C [address] [address] Thoracic Surgery 05/13/23 Juan Miguel Solis PA-C [address] [address] Specialist Thoracic Surgery 05/16/23 [facility] 08/19/23 documented as of this encounter
--- OUTSIDE RECORDS SUMMARY | 2025-03-16 15:26 | XMS_ITS ---
Author Name [facility] Organization Unknown Results Test Name/Text Value Interpretation Date Range Source Clinical Information IN CYTO 01/14/2025 [facility]_THSFRAN History of Medication Use Medication Directions Dispensed Refills Start Date End Date Stat acetaminophen (TYLENOL) tablet 650 mg 650 mg, oral, Once as needed, mild pain, pain (1-3), Starting on Fri01/12/25 at 1612, For 1 dose, Recovery (only), pain (1-3) 01/12/2025 active dexAMETHasone (DECADRON) injection 4 mg 4 mg, intravenous, Once as needed, nausea and vomitting, Starting on Fri01/12/25 at 1612, For 1 dose, Recovery (only), Administer 2nd unless given in OR 01/12/2025 active HYDROmorphone (DILAUDID) injection 0.2 mg 0.2 mg, intravenous, Every 15 min PRN, moderate pain, severe pain, Starting on Fri01/12/25 at 1612, For 4 doses, Recovery (only), DO NOT EXCEED 2MG 01/12/2025 active HYDROmorphone (DILAUDID) injection 0.5 mg 0.5 mg, intravenous, Every 5 min PRN, severe pain or when therapies for moderate pain were not effective, Starting on Fri01/12/25 at 1551, For 4 doses, Recovery (only) 01/12/2025 active ipratropium-albuteroL (DUONEB) 0.5-2.5 mg/3 mL nebulizer solution 3 mL 3 mL, nebulization, Once as needed, wheezing, Starting on Fri01/12/25 at 1612, For 1 dose, Recovery (only) 01/12/2025 active labetalol (NORMODYNE) injection 5 mg 5 mg, intravenous, Every 10 min PRN, high blood pressure, sbp >180 hold for hr <60, Starting on Fri01/12/25 at 1551, For 4 doses, Recovery (only), As needed for: -SBP GREATER than 180 mmHg -HOLD for pulse LESS than 60bpm 01/12/2025 active meperidine (PF) (DEMEROL) 25 mg/mL injection 12.5 mg 12.5 mg, intravenous, Every 30 min PRN, shivering, Starting on Fri01/12/25 at 1612, For 2 doses, Recovery (only), Infuse over 5 minutes. 01/12/2025 active ondansetron (PF) (ZOFRAN) injection 4 mg 4 mg, intravenous, Once as needed, nausea, vomiting, Starting on Fri01/12/25 at 1612, For 1 dose, Recovery (only), Infuse over 2 minutes. Administer 1st unless given in OR then give dexamethasone 01/12/2025 active ondansetron ODT (ZOFRAN-ODT) disintegrating tablet 4 mg [Order 1 Start] Name: ondansetron ODT (ZOFRAN-ODT) disintegrating tablet 4 mg Signed Summary: 4 mg, oral, Every 8 hours PRN, vomiting, nausea, Starting on Fri01/12/25 at 1551, Recovery (only), -Give IV if patient is unable to take orally. -If inadequate response within 30 minutes, proceed to next- 01/12/2025 active orphenadrine (NORFLEX) injection 30 mg 30 mg, intravenous, Once as needed, muscle spasms, Starting on Fri01/12/25 at 1612, For 1 dose, Recovery (only) 01/12/2025 active oxyCODONE (ROXICODONE) immediate release tablet 5 mg 5 mg, oral, Every 4 hours PRN, moderate pain or when therapies for mild pain were not effective, Starting on Fri01/12/25 at 1551, For 2 doses, Recovery (only) 01/12/2025 active prochlorperazine (COMPAZINE) tablet 10 mg [Order 1 Start] Name: prochlorperazine (COMPAZINE) tablet 10 mg Signed Summary: 10 mg, oral, Every 6 hours PRN, nausea, vomiting, Starting on Fri01/12/25 at 1551, Recovery (only), 1st Line Option: -Give IV or IM if patient is unable to take orally. -If inadequate response within 30 minutes, proceed 01/12/2025 active sodium chloride 0.9 % flush 10 mL [Order 1 Start] Name: Insert peripheral IV Signed Summary: STAT, Once, On Fri01/12/25 at 1108, For 1 occurrence, Preprocedure [Order 1 End] [Order 2 Start] Name: Maintain IV access Signed Summary: Until discontinued, Starting on Fri01/12/25 at 1108, Until Specified, Preprocedure [Order 2 End] [Order 01/12/2025 active rosuvastatin (CRESTOR) 5 mg tablet Take 1 tablet (5 mg total) by mouth 1 (one) time each day. 12/27/2024 active enoxaparin (LOVENOX) 80 mg/0.8 mL syringe Inject 0.7 mL (70 mg total) under the skin every 12 (twelve) hours. 12/22/2024 active omeprazole (PriLOSEC) [address] capsule TAKE ONE CAPSULE BY MOUTH EVERY DAY 11/15/2024 active fluticasone propionate (FLONASE) 50 mcg/actuation nasal spray Administer 2 sprays into each nostril 1 (one) time each day. Shake gently. Before first use, prime pump. After use, clean tip and replace cap. 11/08/2024 active aluminum-magnesium hydroxide-simethicone (MAALOX) 200-200-20 mg/5 mL suspension Take 10 mL by mouth every 6 (six) hours if needed for indigestion or heartburn. 09/17/2024 active baclofen (LIORESAL) 10 mg tablet Take 1 tablet (10 mg total) by mouth 3 (three) times a day if needed for muscle spasms for up to 14 days. 09/17/2024 active calcium carbonate (TUMS) 500 mg (200 mg elemental calcium) chewable tablet Chew 2 tablets (1,000 mg total) 4 (four) times a day if needed for heartburn or indigestion. 09/17/2024 active carisoprodoL (SOMA) 350 mg tablet Take 1 tablet (350 mg total) by mouth 4 (four) times a day if needed for muscle spasms for up to 10 days. Max Daily Amount: 1,400 mg 09/17/2024 active diclofenac (VOLTAREN) 1 % topical gel Apply 4 g topically 4 (four) times a day. 09/17/2024 active lidocaine 4 % patch Apply 1 patch topically 1 (one) time each day. 09/17/2024 active amLODIPine-benazepril (LOTREL) 5-20 mg per capsule Take 1 capsule by mouth 1 (one) time each day. 07/28/2024 active buPROPion SR (WELLBUTRIN SR) 150 mg 12 hr tablet Take 1 tablet (150 mg total) by mouth 2 (two) times a day. 07/28/2024 active metoprolol tartrate (LOPRESSOR) 25 mg tablet Take 1 tablet (25 mg total) by mouth 2 (two) times a day. 07/28/2024 active Anoro Ellipta 62.5-25 mcg/actuation inhaler Inhale 1 puff by mouth 1 (one) time each day. 06/29/2024 active warfarin (COUMADIN) 5 mg tablet Take 1 Tablet by mouth See Admin Instructions for 360 days. Follow coumadin clinic instructions. May cause heavy bleeding. Take at same time every day. Do not change dietary habits. 04/28/2024 active ipratropium-albuteroL (Combivent Respimat) 20-100 mcg/actuation inhaler Inhale 1 Puff into the lungs 3 times daily. 01/29/2024 active inhaler, assist devices (E-Z SPACER MISC) 1 Units by Does not apply route as needed (for inhaler). 07/02/2023 active Bifidobacterium infantis (Align) 4 mg capsule Take 4 mg by mouth daily. 06/27/2023 active docusate sodium (COLACE) 100 mg capsule Take 1 capsule (100 mg total) by mouth 2 (two) times a day. active Problems Problem Status Onset Date Problem Type Date of Resoluti on Source Benign neoplasm of colon active 2011-05-13 ProblemAct [facility] Chronic diarrhea active 2019-12-23 ProblemAct C T_THSFRAN Lab test positive for detection of COVID-19 virus active 2021-07-11 ProblemAct [facility] Depression active 2015-08-18 ProblemAct [facility]_THSF RAN DVT of leg (deep venous thrombosis) (CMS/HCC V24, CMS/HCC V28) active 2010-10-03 ProblemAct [facility] Hematuria active 2017-02-03 ProblemAct [facility] Adrenal incidentaloma ([facility] V24) active 2017-02-03 ProblemAct [facility] Diarrhea active 2023-06-29 ProblemAct [facility] Factor V Leiden mutation ([facility] V24) active 2011-02-28 ProblemAct [facility] Pulmonary nodule active 2023-04-04 ProblemAct C T_THSFRAN Squamous cell carcinoma lung, left ([facility] V24, [facility] V28) active 2023-06-30 ProblemAct [facility] Heartburn active 2009-10-10 ProblemAct [facility] COPD (chronic obstructive pulmonary disease) ([facility] V24, [facility] V28) active 2016-02-16 ProblemAct [facility] Hyperlipidemia with target LDL less than 130 active 2012-08-24 ProblemAct [facility]_ [facility] Benign prostatic hyperplasia with weak urinary stream active 2023-11-18 ProblemAct [facility] Thoracic aortic aneurysm ([facility] V24) active 2021-03-17 ProblemAct [facility] Mixed hyperlipidemia active 2022-06-20 ProblemAct [facility] Adult failure to thrive active 2023-06-02 ProblemAct CT_THS[facility] Fatty liver active 2019-07-09 ProblemAct CT_THS REY Hemoptysis active 2024-03-17 ProblemAct [facility] R[facility] Primary hypertension active 2022-04-23 ProblemAct [facility] Coronary artery disease involving habematolel coronary artery of habematolel heart without angina pectoris active 2022-06-20 ProblemAct [facility] Migraine with aura active 2005-07-05 ProblemAct [facility] Nephrolithiasis active 2019-07-[address] _[facility] Aortic root dilatation ([facility] V24) active 2023-01-24 ProblemAct CT_THS[facility] Elevated LFTs active 2020-11-27 ProblemAct CT_T HSFRAN Eye muscle paralysis, left active 2017-04-24 ProblemAct CT_[facility] Cough active 2023-11-06 ProblemAct [facility] IBS (irritable bowel syndrome) active 2020-02-03 ProblemAct [facility] Pneumonia active 2023-06-29 ProblemAct CT_[facility] AN Cervical disc displacement active 2008-03-09 ProblemAct CT_THS[facility] Tobacco use disorder active 2008-08-25 ProblemAct [facility] Diplopia active 2017-06-26 ProblemAct [facility] AN Insomnia active 2023-06-29 ProblemAct [facility] AN Immunizations Vaccine Date Source Lot Number Status Pneumococcal conjugate 20 va lent (Prevnar 20, PCV 20) 2mo and older 11/05/2022 CT_S[facility]AN [id number] comple gali Influenza trivalent, 0.5mL ( Fluad) 65yo and older 07/05/2021 [id number] completed Tdap Tetanus diptheria acell ular pertussis (Boostrix; Adacel) 7yo and older 04/04/2014 [facility]andezFREUGENIO completed Pneumococcal polysaccharide 23 valent (Pneumovax 23) 2yo and older 2010 [id number] com pleted Tdap Tetanus diptheria acell ular pertussis (Boostrix; Adacel) 7yo and older 12/09/2008 [facility] [id number] completed Encounters Encounter Type Encounter Reason Primary Diagnosis Location Date Ambulatory Pain, unspecified Pain, unspecified [facility] 01/12/2025 Ambulatory Solitary pulmonary nodule Solitary pulmonary nodule [facility] 01/12/2025 Care Team Organization Name Specialty Phone Email Start Date End Da te [facility] [place]/12[place]2025 [facility] [place]/2025
--- OUTSIDE RECORDS SUMMARY | 2025-03-16 15:26 | XMS_ITS | Encounter Summary ---
Author Organization [facility] Address [address] [place] [address] Care Team Providers Care Spinning Mule Tender Name Role Phone JorjeLe Primary Care Provider [phone] Encounter Details Date Type Department Care Team (Late st Contact Info) Description 10/10/2024 Lab Requisition [facility] - Main Lab [address] [place] [address] Bernadine Florez MD [address] [place], [place] [id number] Other malaise; Unspecified atrial fibrillation (CMS/HCC V24, [...] Anticoagulation - Warfarin Visit Coumadin Clinic - [facility] [address] [facility] [place] [address] 06/03/2025 2:45 PM EST Office Visit Internal Medicine - [facility] [address] [place], [place] [phone] Aide Linares, LEWIS [address] [place] [address] documented as of this encounter Procedures Procedure Name Priority Date/Time Associated Diagnosis Comments PROTHROMBIN TIME WITH INR Routine 10/11/2024 6:48 AM EDT Other malaise Unspecified atrial fibrillation (CMS/HCC) COMPLETE BLOOD COUNT Routine 10/11/2024 6:48 AM EDT Other malaise Unspecified atrial fibrillation (CMS/HCC) BASIC METABOLIC PANEL Routine 10/11/2024 6:48 AM EDT Other malaise Unspecified atrial fibrillation (CMS/HCC) documented in this encounter Results * (ABNORMAL) Prothrombin time with INR (10/11/2024 6:48 AM EDT) Protime 16.9(H) 10.6 - 13.9 sec LAB COAGULATION METHOD 10/11/2024 11:33 AM EDT [facility] INR 1.4 LAB COAGULATION METHOD 10/11/2024 11:33 AM EDT [facility] Blood Venous blood specimen / Unknown Venipuncture / Unknown 10/11/2024 6:48 AM EDT 10/11/2024 10:24 AM EDT Bernadine Florez MD LAB BLOOD ORDERABLES Final Resul t [facility] [address] [place] [address], * (ABNORMAL) Basic metabolic panel (10/11/2024 6:48 AM EDT) Sodium 139 133 - 145 mmol/L LAB CHEMISTRY METHOD 10/11/2024 12:02 PM [facility] Potassium 4.0 3.5 - 5.5 mmol/L LAB CHEMISTRY METHOD 10/11/2024 12:02 PM [facility] Chloride 105 96 - 110 mmol/L LAB CHEMISTRY METHOD 10/11/2024 12:02 PM [facility] CO2 24 21 - 32 mmol/L LAB CHEMISTRY METHOD 10/11/2024 12:02 PM [facility] Anion Gap 10 3 - 11 LAB CHEMISTRY METHOD 10/11/2024 12:02 PM [facility] Glucose 100 70 - 100 mg/dL LAB CHEMISTRY METHOD 10/11/2024 12:02 PM [facility] BUN 18 5 - 25 mg/dL LAB CHEMISTRY METHOD 10/11/2024 12:02 PM [facility] Creatinine 0.68(L) 0.70 - 1.30 mg/dL LAB CHEMISTRY METHOD 10/11/2024 12:02 PM [facility] eGFR 98 >=60 mL/min/1. 73m2 LAB CHEMISTRY METHOD 10/11/2024 12:02 PM [facility] Comment:Calculation based on the Chronic Kidney Disease Epidemiology Collaboration (CKD-EPI) equation refit without adjustment for race. BUN/Creatinine Ratio 26.5 LAB CHEMISTRY METHOD 10/11/2024 12:02 PM [facility] Calcium 9.5 8.5 - 10.5 mg/dL LAB CHEMISTRY METHOD 10/11/2024 12:02 PM [facility] Blood Venous blood specimen / Unknown Venipuncture / Unknown 10/11/2024 6:48 AM EDT 10/11/2024 10:23 AM EDT Bernadine Florez MD LAB BLOOD ORDERABLES Final Resul t [facility] [address] [place] [address], * (ABNORMAL) Complete blood count (10/11/2024 6:48 AM EDT) WBC 5.7 4.8 - 10.8 K/mcL LAB HEMETOLOGY METHOD 10/11/2024 11:52 AM [facility] RBC 4.00(L) 4.50 - 5.50 M/mcL LAB HEMETOLOGY METHOD 10/11/2024 11:52 AM [facility] Hemoglobin 11.1(L) 13.5 - 17.5 g/dL LAB HEMETOLOGY METHOD 10/11/2024 11:52 AM [facility] Hematocrit 34.7(L) 42.0 - 54.0 % LAB HEMETOLOGY METHOD 10/11/2024 11:52 AM [facility] MCV 87.0 79.0 - 98.0 FL LAB HEMETOLOGY METHOD 10/11/2024 11:52 AM [facility] MCH 27.8 27.0 - 32.0 pcg LAB HEMETOLOGY METHOD 10/11/2024 11:52 AM [facility] MCHC 32.0 32.0 - 37.0 g/dL LAB HEMETOLOGY METHOD 10/11/2024 11:52 AM [facility] RDW 13.7 11.0 - 15.0 % LAB HEMETOLOGY METHOD 10/11/2024 11:52 AM EDT [facility] Platelets 233 130 - 400 K/mcL LAB HEMETOLOGY METHOD 10/11/2024 11:52 AM EDT [facility] MPV 10.0 7.0 - 11.0 FL LAB HEMETOLOGY METHOD 10/11/2024 11:52 AM EDT [facility] NRBC 0.0 <1.0 % LAB HEMETOLOGY METHOD 10/11/2024 11:52 AM EDT [facility] NRBC Absolute 0.00 <0.10 K/mcL LAB HEMETOLOGY METHOD 10/11/2024 11:52 AM EDT [facility] Blood Venous blood specimen / Unknown Venipuncture / Unknown 10/11/2024 6:48 AM EDT 10/11/2024 10:23 AM EDT us Bernadine Florez MD LAB BLOOD ORDERABLES Final Resul t [facility] [address] [place] [address], documented in this encounter Visit Diagnoses Diagnosis Other malaise Unspecified atrial fibrillation (CMS/HCC V24, CMS/HCC V28) documented in this encounter Additional Health Concerns Infection Onset Date Last Indicated Resolved Time Tuberculosis Rule-Out 01/12/2025 01/12/20252024 7:05 PM EDT documented as of this encounter Care Teams Spinning Mule Tender Relationship Specialty Start Date End Date Le Recinos DO [address] [place] [address] PCP - General 04/28/24 documented as of this encounter
--- OUTSIDE RECORDS SUMMARY | 2025-03-16 15:26 | XMS_ITS | Encounter Summary ---
Author Organization [facility] Address [address] [place] [address] Care Team Providers Care Online Media Buyer Name Role Phone Toby Ortiz MD Primary Care Provider Unavail able Caterina Sena MD Primary Care Provider Ben Pantoja MD Unavailable [phone] Ben Martin MD Unavailable [phone] Jason Lin MD Unavailable Sania Browning PA-C Unavailable [phone] Juan Miguel Solis PA-C Unavailable [phone] [facility] Dermatology [facility] Laser Unavaila ble Unavailable Le Recinos DO Primary Care Provider [phone] Encounter Details Date Type Department Care Team Description 07/07/2019 SCAN Medical Records [address] [place] [address] Abstract, Provider Social History Tobacco Use Types [...] Never 08/19/2023 How often do you attend zoroastrianism or scientologist serv ices? Never 08/19/2023 Do you belong to any clubs o r organizations such as zoroastrianism groups, unions, fraPowerFile or athletic groups, or school groups? No [...] place to sleep or slept in a long term (including now)? No 08/19/2023 Sex Assigned at Date Recorded Not on file Job Start Date Occupation Industry Not on file Not on file Not on file documented as of this encounter Plan of Treatment Not on file documented as of this encounter Procedures Procedure Name Priority Date/Time Associated Diagnosis Comments OUTSIDE CT Routine 07/07/2019 documented in this encounter Results * OUTSIDE CT (07/07/2019) Provider Abstract RADIOLOGY documented in this encounter Visit Diagnoses Not on filedocumented in this encounter Care Teams Online Media Buyer Relationship Specialty Start Date End Date Toby Ortiz MD PCP - General Internal Medicine 07/07/15 12/11/21 Caterina Sena MD PCP - General Family Practice 12/12/21 04/27/24 Le Recinos, [address] [place] [address] PCP - General Internal Medicine 04/28/24 Ben Martin MD Specialist Cardiology 03/22/22 08/18/23 Ben Martin MD Specialist Cardiology 03/22/22 Jason Lin MD Lung Cancer Barrel Assembler Helper 04/04/23 Sania Browning PA-C [address] [address] Thoracic Surgery 05/13/23 Juan Miguel Solis PA-C [address] [address] Specialist Thoracic Surgery 05/16/23 [facility]ermatology [facility] 08/19/23 documented as of this encounter
--- OUTSIDE RECORDS SUMMARY | 2025-03-16 15:26 | XMS_ITS | Encounter Summary ---
Author Organization [facility] Address [address] [place] [address] Care Team Providers Care Business Services Assistant Name Role Phone JorjeLe Primary Care Provider [phone] Encounter Details Date Type Department Care Team (Late st Contact Info) Description 10/23/[address] [facility] - Main Lab [address] [place] [address] Bernadine Florez MD [address] [place], [place] [id number] Unspecified atrial fibrillation (CMS/HCC V24, CMS/HCC V28) [...] - Warfarin Visit Coumad[facility] Clinic - [facility] [address] [facility] [place] [phone] 06/03/2025 2:45 PM EST Office Visit Internal Medicine - [facility] [address] [facility] [place] [phone] Aide Linares, LEWIS [address] [place], [place] documented as of this encounter Procedures Procedure Name Priority Date/Time Associated Diagnosis Comments PROTHROMBIN TIME WITH INR Routine 10/25/2024 6:52 AM EDT Unspecified atrial fibrillation (CMS/HCC) documented in this encounter Results * (ABNORMAL) Prothrombin time with INR (10/25/2024 6:52 AM EDT) Protime 27.0(H) 10.6 - 13.9 sec LAB COAGULATION METHOD 10/25/2024 9:52 AM EDT [facility] INR 2.2 LAB COAGULATION METHOD 10/25/2024 9:52 AM EDT [facility] Blood Venous blood specimen / Unknown Venipuncture / Unknown 10/25/2024 6:52 AM EDT 10/25/2024 9:17 AM EDT us Bernadine Florez MD LAB BLOOD ORDERABLES Final Resul t [facility] [address] [place] [address], documented in this encounter Visit Diagnoses Diagnosis Unspecified atrial fibrillation (CMS/HCC V24, CMS/HCC V28) documented in this encounter Additional Health Concerns Infection Onset Date Last Indicated Resolved Time Tuberculosis Rule-Out 01/12/2025 01/12/20252024 7:05 PM EDT documented as of this encounter Care Teams Business Services Assistant Relationship Specialty Start Date End Date Le Recinos DO [address] [facility] [place] [address] PCP - General 04/28/24 documented as of this encounter
--- OUTSIDE RECORDS SUMMARY | 2025-03-16 15:26 | XMS_ITS | Encounter Summary ---
Author Organization [facility] Address [address] [place] [address] Care Team Providers Care Press Department Manager Name Role Phone JorjeLe Primary Care Provider [phone] Encounter Details Date Type Department Care Team (Late st Contact Info) Description 10/20/2024 Lab Requisition [facility] - Main Lab [address] [facility] [place] [address] Bernadine Florez MD [address] [place], [place] [id number] Unspecified atrial fibrillation (CMS/HCC V24, CMS/HCC V28) [...] - Warfarin Visit [facility] - [facility] [address] [facility] [place] [phone] 06/03/2025 2:45 PM EST Office Visit Internal Medicine - [facility] [address] [facility] [place] [phone] Aide Linares, LEWIS [address] [place], [place] documented as of this encounter Procedures Procedure Name Priority Date/Time Associated Diagnosis Comments PROTHROMBIN TIME WITH INR Routine 10/21/2024 5:44 AM EDT Unspecified atrial fibrillation (CMS/HCC) documented in this encounter Results * (ABNORMAL) Prothrombin time with INR (10/21/2024 5:44 AM EDT) Protime 25.4(H) 10.6 - 13.9 sec LAB COAGULATION METHOD 10/21/2024 8:31 AM EDT [facility] INR 2.0 LAB COAGULATION METHOD 10/21/2024 8:31 AM EDT [facility] Blood Venous blood specimen / Unknown Venipuncture / Unknown 10/21/2024 5:44 AM EDT 10/21/2024 8:08 AM EDT us Bernadine Florez MD LAB BLOOD ORDERABLES Final Resul t [facility] [address] [place] [address], documented in this encounter Visit Diagnoses Diagnosis Unspecified atrial fibrillation (CMS/HCC V24, CMS/HCC V28) documented in this encounter Additional Health Concerns Infection Onset Date Last Indicated Resolved Time Tuberculosis Rule-Out 01/12/2025 01/12/20252024 7:05 PM EDT documented as of this encounter Care Teams Press Department Manager Relationship Specialty Start Date End Date Le Recinos DO [address] [facility] [place] [address] PCP - General 04/28/24 documented as of this encounter
--- OUTSIDE RECORDS SUMMARY | 2025-03-16 15:26 | XMS_ITS | Encounter Summary ---
Author Organization [facility] Address [address] [place] [address] Care Team Providers Care Cable Placer Name Role Phone Caterina Sena MD Primary Care Provider Ben Pantoja MD Unavailable [phone] Ben Martin MD Unavailable [phone] Jason Lin MD Unavailable Sania Browning PA-C Unavailable [phone] Juan Miguel Solis PA-C Unavailable [phone] [facility] Dermatology & Laser Unavaila ble Unavailable Le Recinos DO Primary Care Provider [phone] Encounter Details Date Type Department Care Team Description 05/07/2023 Orders Only Medical Records [address] [place] [address] Jason Lin MD [address] [address] Social History Tobacco Use Types Packs/Day Years [...] Never 08/19/2023 How often do you attend anglican or oriental orthodox serv ices? Never 08/19/2023 Do you belong to any clubs o r organizations such as anglican groups, unions, fraternal or athletic groups, or [...] was confirmed or suspected to have Coronavirus/COVID-19? Unable to assess 04/30/2023 4:24 PM EDT documented as of this encounter Plan of Treatment Not on file documented as of this encounter Procedures Procedure Name Priority Date/Time Associated Diagnosis Comments OUTSIDE PATHOLOGY Routine 05/06/2023 OUTSIDE PATHOLOGY Routine 04/30/2023 documented in this encounter Results * OUTSIDE PATHOLOGY (05/06/2023) Jason Lin MD OUTSIDE LAB * OUTSIDE PATHOLOGY (04/30/2023) Jason Lin MD OUTSIDE LAB documented in this encounter Visit Diagnoses Not on filedocumented in this encounter Care Teams Cable Placer Relationship Specialty Start Date End Date Caterina Sena MD PCP - General Family Practice 12/12/21 04/27/24 Le Recinos, DO [address] [place] [address] PCP - General Internal Medicine 04/28/24 Ben Martin MD Specialist Cardiology 03/22/22 08/18/23 Ben Martin MD Specialist Cardiology 03/22/22 Jason Lin MD Lung Cancer Medical Coding Specialist 04/04/23 Sania Browning PA-C [address] [address] Thoracic Surgery 05/13/23 Juan Miguel Solis PA-C [address] [address] Specialist Thoracic Surgery 05/16/23 [facility] Dermatology & Laser 08/19/23 documented as of this encounter
--- OUTSIDE RECORDS SUMMARY | 2025-03-16 15:26 | XMS_ITS | Encounter Summary ---
Author Organization [facility] Address [address] [place] [address] Care Team Providers Care Live Hanger Name Role Phone Name, Jeremi BRICE Primary Care Provider Unavailabl Toby Gutierrez MD Primary Care Provider Unavail able Caterina Sena MD Primary Care Provider Unavai Ben Dorantes MD Unavailable [phone] Ben Martin MD Unavailable [phone] Jason Lin MD Unavailable Sania Browning PA-C Unavailable [phone] Juan Miguel Solis PA-C Unavailable [phone] [facility] Dermatology & Laser Unavaila ble Unavailable Le Recinos DO Primary Care Provider [phone] Encounter Details Date Type Department Care Team Description 07/27/2007 Hospital Medical Records [address] [place] [address] Berto Chatterjee MD Social History Tobacco Use [...] How often do you attend methodist or mosque serv ices? Never 08/19/2023 Do you belong to any clubs o r organizations such as methodist groups, unions, fraBreitbart News Network or athletic groups, or school groups? No [...] on filedocumented in this encounter Care Teams Live Hanger Relationship Specialty Start Date End Date Name, MD Jeremi PCP - General 01/28/1994 07/06/15 Toby Ortiz MD PCP - General Internal Medicine 07/07/15 12/11/21 Caterina Sena MD PCP - General Family Practice 12/12/21 04/27/24 Le Recinos, DO [address] [place] [address] PCP - General Internal Medicine 04/28/24 Ben Martin MD Specialist Cardiology 03/22/22 08/18/23 Ben Martin MD Specialist Cardiology 03/22/22 Jason Lin MD Lung Cancer Core Stacker 04/04/23 Sania Browning PA-C [address] [address] Thoracic Surgery 05/13/23 Juan Miguel Solis PA-C [address] [address] Specialist Thoracic Surgery 05/16/23 [facility] Dermatology & Laser 08/19/23 documented as of this encounter
--- OUTSIDE RECORDS SUMMARY | 2025-03-16 15:26 | XMS_ITS | Encounter Summary ---
Author Organization [facility] Address [address] [place] [address] Care Team Providers Care Steamtable Worker Name Role Phone Caterina Sena MD Primary Care Provider Ben Pantoja MD Unavailable [phone] Ben Martin MD Unavailable [phone] Jason Lin MD Unavailable Sania Browning PA-C Unavailable [phone] Juan Miguel Solis PA-C Unavailable [phone] [facility] Dermatology & Laser Unavaila ble Unavailable Le Recinos DO Primary Care Provider [phone] Encounter Details Date Type Department Care Team Description 05/13/2023 Orders Only Medical Records [address] [place] [address] Jason Lin MD [address] [address] Social History Tobacco Use Types Packs/Day Years [...] Never 08/19/2023 How often do you attend sikh or hoahaoism serv ices? Never 08/19/2023 Do you belong to any clubs o r organizations such as sikh groups, unions, fraternal or athletic groups, or [...] Date/Time Associated Diagnosis Comments OUTSIDE PATHOLOGY Routine 05/09/2023 documented in this encounter Results * OUTSIDE PATHOLOGY (05/09/2023) Jason Lin MD OUTSIDE LAB documented in this encounter Visit Diagnoses Not on filedocumented in this encounter Care Teams Steamtable Worker Relationship Specialty Start Date End Date Caterina Sena MD PCP - General Family Practice 12/12/21 04/27/24 Le Recinos DO [address] [place] [address] PCP - General Internal Medicine 04/28/24 Ben Martin MD Specialist Cardiology 03/22/22 08/18/23 Ben Martin MD Specialist Cardiology 03/22/22 Jason Lin MD Lung Cancer Salt Grinder 04/04/23 Sania Browning PA-C [address] [address] Thoracic Surgery 05/13/23 Juan Miguel Solis PA-C [address] [address] Specialist Thoracic Surgery 05/16/23 [facility] Dermatology & Laser 08/19/23 documented as of this encounter
--- OUTSIDE RECORDS SUMMARY | 2025-03-16 15:27 | XMS_ITS | Encounter Summary ---
Author Organization [facility] Address [address] [place] [address] Care Team Providers Care Engineering Technician Name Role Phone Toby Ortiz MD Primary Care Provider Unavail able Caterina Sena MD Primary Care Provider Ben Pantoja MD Unavailable [phone] Ben Martin MD Unavailable [phone] Jason Lin MD Unavailable Sania Browning PA-C Unavailable [phone] Juan Miguel Solis PA-C Unavailable [phone] [facility] Dermatology & Laser Unavaila ble Unavailable Le Recinos DO Primary Care Provider [phone] Encounter Details Date Type Department Care Team Description 10/03/2016 Release of Information Medical Records [address] [place] [address] Abstract, Provider Social History Tobacco Use Types Packs/Day Years Used Date Smoking Tobacco: Every Day Cigarettes 0.5 40 Started: 08/18/1962 Smokeless Tobacco: Never Alcohol Use Standard Drinks/Week Comments No 0 (1 standard drink = 0.6 oz pur e alcohol) Alcohol Habits Answer Date Recorded How often [...] Never 08/19/2023 How often do you attend yarsani or yazidi serv ices? Never 08/19/2023 Do you belong to any clubs o r organizations such as yarsani groups, unions, fraThere Corporation or athletic groups, or school groups? No [...] on filedocumented in this encounter Care Teams Engineering Technician Relationship Specialty Start Date End Date Toby Ortiz MD PCP - General Internal Medicine 07/07/15 12/11/21 Caterina Sena MD PCP - General Family Practice 12/12/21 04/27/24 Le Recinos, [address] [address] PCP - General Internal Medicine 04/28/24 Ben Martin MD Specialist Cardiology 03/22/22 08/18/23 Ben Martin MD Specialist Cardiology 03/22/22 Jason Lin MD Lung Cancer Teacher Tutor 04/04/23 Sania Browning PA-C [address] [address] Thoracic Surgery 05/13/23 Juan Miguel Solis PA-C [address] [address] Specialist Thoracic Surgery 05/16/23 [facility] Dermatology & Laser 08/19/23 documented as of this encounter
--- OUTSIDE RECORDS SUMMARY | 2025-03-16 15:27 | XMS_ITS | Encounter Summary ---
Author Organization [facility] Address [address] [place] [address] Care Team Providers Care Bareback Rider Name Role Phone Toby Ortiz MD Primary Care Provider Unavail able Caterina Sena MD Primary Care Provider Ben Pantoja MD Unavailable [phone] Ben Martin MD Unavailable [phone] Jason Lin MD Unavailable Sania Browning PA-C Unavailable [phone] Juan Miguel Solis PA-C Unavailable [phone] [facility] Dermatology & Laser Unavaila ble Unavailable Le Recinos DO Primary Care Provider [phone] Encounter Details Date Type Department Care Team Description 2021 Hospital Medical Records [address] [place], [place] [address] [place] [address] [address] [place], [place] [id number] Social History Tobacco Use Types Packs/Day Years [...] How often do you attend tenriism or voodoo serv ices? Never 08/19/2023 Do you belong to any clubs o r organizations such as tenriism groups, unions, fraternal or athletic groups, or [...] have Coronavirus / COVID-19? No / Unsure 06/12/2021 4:03 PM EST documented as of this encounter Plan of Treatment Not on file documented as of this encounter Visit Diagnoses Not on filedocumented in this encounter Care Teams Bareback Rider Relationship Specialty Start Date End Date Toby Ortiz MD PCP - General Internal Medicine 07/07/15 12/11/21 Caterina Sena MD PCP - General Family Practice 12/12/21 04/27/24 Le Recinos, DO [address] [place] [address] PCP - General Internal Medicine 04/28/24 Ben Martin MD Specialist Cardiology 03/22/22 08/18/23 Ben Martin MD Specialist Cardiology 03/22/22 Jason Lin MD Lung Cancer Architecture Consultant 04/04/23 Sania Browning PA-C [address] [address] Thoracic Surgery 05/13/23 Juan Miguel Solis PA-C [address] [address] Specialist Thoracic Surgery 05/16/23 [facility] Dermatology & Laser 08/19/23 documented as of this encounter
--- OUTSIDE RECORDS SUMMARY | 2025-03-16 15:27 | XMS_ITS | Encounter Summary ---
Author Organization [facility] Address [address] [place] [address] Care Team Providers Care President Name Role Phone Caterina Sena MD Primary Care Provider Ben Pantoja MD Unavailable [phone] Jason Lin MD Unavailable Sania Browning PA-C Unavailable [phone] Juan Miguel Solis PA-C Unavailable [facility] Dermatology & Laser Unavaila ble Unavailable Le Recinos DO Primary Care Provider Reason for Visit * Reason Onset Date Comments Prior Authorization 01/29/2024 Encounter Details Date Type Department Care Team Description 01/29/2024 Telephone Adult Medicine [facility] [address] [place] [address] Caterina Sena MD Prior Authorization Social History Tobacco Use [...] How often do you attend zoroastrianism or rastafari serv ices? Never 08/19/2023 Do you belong to any clubs o r organizations such as zoroastrianism groups, unions, fraDavra Networks or athletic groups, or school groups? No [...] encounter Miscellaneous Notes * Telephone Encounter - Mckenzie Gutierrez M.A. - 03/29/2024 12:45 PM EDT Prior authorization for the qvar was approved Approved from 02/25/24 until 03/26/25 Approval faxed to [facility] at [phone] * Telephone Encounter - Mckenzie Gutierrez M.A. - 03/26/2024 8:02 AM EDT Prior authorizatino for the Qvar was completed today on [facility] Dx code J44.9 COPD Message received from [facility] stating pa request cannot be completed for this member. Called [facility] [phone] Prior authorization done over the phone with Tiffanie today Trials Arnuity Stilollto Spiriva Pulmicort Hydrochloric Area Supervisor id # [id number] * Telephone Encounter - Lindseyholli Amari - 01/29/2024 3:10 PM EDT Prior Authorization for Medication-do not complete and send this encounter unless you have the fax from the pharmacy. Is this a Cover My Meds request: Yes -- [place] Code [id number] Name of Medication Beclomethasone Diprop HFA (Qvar RediHaler) 40 MCG/ACT AEROSOL,BREATH ACTIVATED Dose of Medication 40 MCG/ACT What is the RX # from the faxed refill? N/a How does patient take this med? Sig - Route: Inhale 1 Puff into the lungs 2 Times Daily. - Inhalation What Pharmacy did the fax come from: [facility] fax #: [phone] [employer] Party Information from fax: What Prescription Plan does the patient have? N/a BIN/PCN if applicable: n/a Cardholder ID:[id number] Person Code: n/a Relationship Code: n/a Help desk phone: [phone] documented in this encounter Plan of Treatment Not on file documented as of this encounter Visit Diagnoses Not on filedocumented in this encounter Care Teams President Relationship Specialty Start Date End Date Caterina Sena MD PCP - General Family Practice 12/12/21 04/27/24 Le Recinos, [address] [address] PCP - General Internal Medicine 04/28/24 Ben Martin MD Specialist Cardiology 03/22/22 Jason Lin MD Lung Cancer Director Of Student Affairs 04/04/23 Sania Browning PA-C [address] [place] [address] [place] [address] Thoracic Surgery 05/13/23 Juan Miguel Solis PA-C [address] [address] Specialist Thoracic Surgery 05/16/23 [facility] Dermatology & Laser 08/19/23 documented as of this encounter
--- OUTSIDE RECORDS SUMMARY | 2025-03-16 15:27 | XMS_ITS | Encounter Summary ---
Author Organization [facility] Address [address] [place] [address] Care Team Providers Care Incident Response Consultant Name Role Phone Caterina Sena MD Primary Care Provider Ben Pantoja MD Unavailable [phone] Ben Martin MD Unavailable [phone] Jason Lin MD Unavailable Sania Browning PA-C Unavailable [phone] Juan Miguel Solis PA-C Unavailable [phone] [facility] Dermatology & Laser Unavaila ble Unavailable Le Recinos DO Primary Care Provider [phone] Encounter Details Date Type Department Care Team Description 03/19/2022 Orders Only [facility] Lung Screening Program [place] [address] [facility] [address] [place] [id number] Jason Lin MD 299 [facility] [address] [place], [place] [id number] History of tobacco abuse Social History Tobacco Use Types Packs/Day Years [...] Never 08/19/2023 How often do you attend latter day or hinduism serv ices? Never 08/19/2023 Do you belong to any clubs o r organizations such as latter day groups, unions, fraternal or athletic groups, or [...] suspected to have Coronavirus/COVID-19? No / Unsure 03/14/2022 3:51 PM EDT documented as of this encounter Plan of Treatment Not on file documented as of this encounter Procedures Procedure Name Priority Date/Time Associated Diagnosis Comments CT LOW DOSE LUNG SCREEN ANNUAL Routine 03/15/2022 History of tobacco abuse documented in this encounter Results * CT LOW DOSE LUNG SCREEN ANNUAL (03/15/2022) Jason Lin MD CT SCANS documented in this encounter Visit Diagnoses Diagnosis History of tobacco abuse Personal history of tobacco use, presenting hazards to health documented in this encounter Care Teams Incident Response Consultant Relationship Specialty Start Date End Date Caterina Sena MD PCP - General Family Practice 12/12/21 04/27/24 Le Recinos, DO [address] [facility] [place] [address] PCP - General Internal Medicine 04/28/24 Ben Martin MD Specialist Cardiology 03/22/22 08/18/23 Ben Martin MD Specialist Cardiology 03/22/22 Jason Lin MD Lung Cancer Label Printing Machinist 04/04/23 Sania Browning PA-C [address] [address] Thoracic Surgery 05/13/23 Juan Miguel Solis PA-C [address] [address] Specialist Thoracic Surgery 05/16/23 [facility] Dermatology & Laser 08/19/23 documented as of this encounter
--- OUTSIDE RECORDS SUMMARY | 2025-03-16 15:27 | XMS_ITS | Encounter Summary ---
Author Organization Formerly [facility] Address [address] [place] [address] Care Team Providers Care Contact Lens Edge Buffer Name Role Phone Caterina Sena MD Primary Care Provider Ben Pantoja MD Unavailable [phone] Ben Martin MD Unavailable [phone] Jason Lin MD Unavailable Sania Browning PA-C Unavailable [phone] Juan Miguel Solis PA-C Unavailable [phone] [facility] Dermatology & Laser Unavaila ble Unavailable Le Recinos DO Primary Care Provider [phone] Encounter Details Date Type Department Care Team Description 05/19/2023 Orders Only [facility] Thoracic Surgery [place] 299 [facility] [address] [place] [address] Sania Browning PA-C 299 [facility] [address] [address] [place] [phone] History of lung cancer Social History [...] Never 08/19/2023 How often do you attend lutheran or christianity serv ices? Never 08/19/2023 Do you belong to any clubs o r organizations such as lutheran groups, unions, fraternal or athletic groups, or [...] suspected to have Coronavirus/COVID-19? No / Unsure 05/20/2023 3:12 PM EDT documented as of this encounter Plan of Treatment Not on file documented as of this encounter Procedures Procedure Name Priority Date/Time Associated Diagnosis Comments CHG RADIOLOGIC EXAM CHEST 2 VIEWS Routine 05/16/2023 History of lung cancer documented in this encounter Results * RADIOLOGIC EXAM CHEST 2 VIEWS (05/16/2023) 05/16/2023 Sania Browning PA-C RADIOLOGY [facility] documented in this encounter Visit Diagnoses Diagnosis History of lung cancer Personal history of malignant neoplasm of bronchus and lung documented in this encounter Care Teams Contact Lens Edge Buffer Relationship Specialty Start Date End Date Caterina Sena MD PCP - General Family Practice 12/12/21 04/27/24 Le Recinos, DO [address] [place] [address] PCP - General Internal Medicine 04/28/24 Ben Martin MD Specialist Cardiology 03/22/22 08/18/23 Ben Martin MD Specialist Cardiology 03/22/22 Jason Lin MD Lung Cancer Tip Cutter 04/04/23 Sania Browning PA-C [address] [phone] Thoracic Surgery 05/13/23 Juan Miguel Solis PA-C [address] [phone] Specialist Thoracic Surgery 05/16/23 [facility] Dermatology & Laser 08/19/23 documented as of this encounter
--- OUTSIDE RECORDS SUMMARY | 2025-03-16 15:27 | XMS_ITS | Encounter Summary ---
Author Organization [facility] Address [address] [place] [address] Care Team Providers Care Drafter Heating And Ventilating Name Role Phone Caterina Sena MD Primary Care Provider Ben Pantoja MD Unavailable [phone] Ben Martin MD Unavailable [phone] Jason Lin MD Unavailable Sania Browning PA-C Unavailable [phone] Juan Miguel Solis PA-C Unavailable [facility] Dermatology & Laser Unavaila ble Unavailable Le Recinos DO Primary Care Provider Encounter Details Date Type Department Care Team Description 06/06/2023 Orders Only Medical Records [address] [place] [id number] Abstract, Provider Social History Tobacco Use Types [...] How often do you attend shinto or roman catholic serv ices? Never 08/19/2023 Do you belong [...] place to sleep or slept in a residential (including now)? No 08/19/2023 Sex Assigned at [...] Name Priority Date/Time Associated Diagnosis Comments OUTSIDE IMAGING Routine 06/06/2023 documented in this encounter Results * OUTSIDE IMAGING (06/06/2023) Juan Miguel Solis PA-C RADIOLOGY documented in this encounter Visit Diagnoses Not on filedocumented in this encounter Care Teams Drafter Heating And Ventilating Relationship Specialty Start Date End Date Caterina Sena MD PCP - General Family Practice 12/12/21 04/27/24 Le Recinos DO [address] [place] [address] PCP - General Internal Medicine 04/28/24 Ben Martin MD Specialist Cardiology 03/22/22 08/18/23 Ben Martin MD Specialist Cardiology 03/22/22 Jason Lin MD Lung Cancer Electrical Prospecting Engineer 04/04/23 Sania Browning PA-C [address] [address] Thoracic Surgery 05/13/23 Juan Miguel Solis PA-C [address] [address] Specialist Thoracic Surgery 05/16/23 [facility] Dermatology & Laser 08/19/23 documented as of this encounter
--- OUTSIDE RECORDS SUMMARY | 2025-03-16 15:27 | XMS_ITS | Encounter Summary ---
Author Organization [facility] Address [address] [place] [address] Care Team Providers Care Business Broker Name Role Phone Toby Ortiz MD Primary Care Provider Unavail able Caterina Sena MD Primary Care Provider UnavaBen Kelly MD Unavailable [phone] Ben Martin MD Unavailable [phone] Jason Lin MD Unavailable Sania Browning PA-C Unavailable Juan Miguel Solis PA-Ellis Unavailable [phone] [facility] Dermatology & Laser Unavaila ble Unavailable Le Recinos DO Primary Care Provider [phone] Reason for Visit * Reason Onset Date Comments Pottery Kiln Builder Feedback 03/17/2017 optomrty Encounter Details Date Type Department Care Team Description 03/17/2017 Telephone Medicine/Pediatrics - [address] [phone] Toby Ortiz MD Pottery Kiln Builder Feedback (optomrty) Social History Tobacco Use Types Packs/Day Years Used Date Smoking Tobacco: Every Day Cigarettes 0.5 40 Started: [birth year]/18/1962 Smokeless Tobacco: Current Alcohol Use Standard Drinks/Week Comments No 0 [...] Never 08/19/2023 How often do you attend voodoo or mandaen serv ices? Never 08/19/2023 Do you belong to any clubs o r organizations such as voodoo groups, unions, fraternal or athletic groups, or [...] encounter Miscellaneous Notes * Telephone Encounter - Toby Ortiz MD - 03/17/2017 12:56 PM EDT noted * Telephone Encounter - Oneyda Gloria - 03/17/2017 9:13 AM EDT FYI to Toby Ortiz, You referred patient to see an cnc manager within a 1 week priority, but the soonest I could schedule the patient for is April 11 at 1:30 PM. If you feel patient needs to be seen sooner please call and speak with Dr.Kimberly Kwok at [phone]. If appointment is acceptable please document and close encounter. A letter has been mailed to the patient with appointment information. If the appointment information changes please contact the patient with new appointment information. Thank you, Oneyda Gimenez Referrals Department documented in this encounter Plan of Treatment Not on file documented as of this encounter Visit Diagnoses Not on filedocumented in this encounter Care Teams Business Broker Relationship Specialty Start Date End Date Toby Ortiz MD PCP - General Internal Medicine 07/07/15 12/11/21 Caterina Sena MD PCP - General Family Practice 12/12/21 04/27/24 Laurie Recinosmana, DO [address] [place] [address] PCP - General Internal Medicine 04/28/24 Ben Martin MD Specialist Cardiology 03/22/22 08/18/23 Ben Martin MD Specialist Cardiology 03/22/22 Jason Lin MD Lung Cancer Dry Starch Supervisor 04/04/23 Sania Browning PA-C [address] [phone] Thoracic Surgery 05/13/23 Juan Miguel Solis PA-C [address] [phone] Specialist Thoracic Surgery 05/16/23 [facility] Dermatology & Laser 08/19/23 documented as of this encounter
--- OUTSIDE RECORDS SUMMARY | 2025-03-16 15:27 | XMS_ITS | Encounter Summary ---
Author Organization [facility] Address [address] [place] [address] Care Team Providers Care Cable Television Technician Name Role Phone Caterina Sena MD Primary Care Provider Ben Pantoja MD Unavailable [phone] Ben Martin MD Unavailable [phone] Jason Lin MD Unavailable Sania Browning PA-C Unavailable [phone] Juan Miguel Solis PA-C Unavailable [phone] [facility] Dermatology & Laser Unavaila ble Unavailable Le Recinos DO Primary Care Provider Encounter Details Date Type Department Care Team Description 06/10/2023 Orders Only Medical Records [address] [place] [address] Juan Miguel Solis PA-C [address] [phone] Hydropneumothorax Social History Tobacco Use Types Packs/Day Years Used Date Smoking Tobacco: Former Cigarettes 0.8 59 0 08/18/1962 - 05/20/2023 Smokeless Tobacco: Never Alcohol Use Standard Drinks/Week Comments Yes 0 (1 standard drink = 0.6 oz pur e alcohol) occasionally, 2 times [facility] Alcohol Habits Answer Date Recorded [...] Never 08/19/2023 How often do you attend synagogue or sabianist serv ices? Never 08/19/2023 Do you belong to any clubs o r organizations such as synagogue groups, unions, fraternal or athletic groups, or [...] Associated Diagnosis Comments OUTSIDE PLAIN FILM Routine 06/10/2023 CAT SCAN OF CHEST NO CONTRAST Routine 06/10/[address] Routine 06/09/2023 OUTSIDE PLAIN FILM Routine 06/08/2023 OUTSIDE PLAIN FILM Routine 06/07/2023 documented in this encounter Results * OUTSIDE PLAIN FILM (06/10/2023) Juan Miguel Solis PA-C RADIOLOGY * CAT SCAN OF CHEST NO CONTRAST (06/10/2023) Juan Miguel Solis PA-C CT SCANS Performing Organization Address City/State/[facility] Co de Phone Number SHANIQUA [facility] * OUTSIDE CT (06/09/2023) Juan Miguel Solis PA-C RADIOLOGY * OUTSIDE PLAIN FILM (06/08/2023) Juan Miguel Solis PA-C RADIOLOGY * OUTSIDE PLAIN FILM (06/07/2023) Sania Browning PA-C RADIOLOGY documented in this encounter Visit Diagnoses Diagnosis Hydropneumothorax Other specified forms of effusion, except tuberculous documented in this encounter Care Teams Cable Television Technician Relationship Specialty Start Date End Date Caterina Sena MD PCP - General Family Practice 12/12/21 04/27/24 [facility] [address] [address] PCP - General Internal Medicine 04/28/24 Ben Martin MD Specialist Cardiology 03/22/22 08/18/23 Ben Martin MD Specialist Cardiology 03/22/22 Jason Lin MD Lung Cancer News Producer 04/04/23 Sania Browning PA-C [address] [phone] Thoracic Surgery 05/13/23 Juan Miguel Solis PA-C [address] [phone] Specialist Thoracic Surgery 05/16/23 [facility] Dermatology & Laser 08/19/23 documented as of this encounter
--- OUTSIDE RECORDS SUMMARY | 2025-03-16 15:27 | XMS_ITS | Encounter Summary ---
Author Organization [facility] Address [address] [place] [address] Care Team Providers Care Billing Services Manager Name Role Phone Caterina Sena MD Primary Care Provider Ben Pantoja MD Unavailable [phone] Jason Lin MD Unavailable Sania Browning PA-C Unavailable [phone] Juan Miguel Solis PA-C Unavailable [phone] [facility] Dermatology & Laser Unavaila ble Unavailable Le Recinos DO Primary Care Provider Reason for Visit * Reason Onset Date Comments Cough 03/09/2024 Encounter Details Date Type Department Care Team Description 03/09/2024 Telephone Adult Medicine [facility] [address] [place] [address] Caterina Sena MD Cough Social History Tobacco Use Types Packs/Day Years [...] Never 08/19/2023 How often do you attend taoism or roman catholic serv ices? Never 08/19/2023 Do you belong to any clubs o r organizations such as taoism groups, unions, fraAccelergy or athletic groups, or school groups? No [...] encounter Miscellaneous Notes * Telephone Encounter - Mouna Phillips R.N. - 03/09/2024 12:39 PM EDT Spoke to 73 yr old pt-reports of on and off coughing up of reddish sputum at times; and light red at other times x few days with sl wheezing on occasions. Denies any SOB or fever. Advised to be eval in the ER (wear a mask) he is going today. Pt will callback for f/up appt after visit. * Telephone Encounter - Sallie Jeff - 03/09/2024 11:14 AM EDT Symptoms patient is presenting: Pt states his COPD is acting up and he is having taces of blood in his sputum For ALL patients calling to schedule any appointment (routine, sick visit, follow up, consult, etc.) in the outpatient setting please ask the following questions: ?? Do you have fever of higher than 101, sore throat with difficulty swallowing or severe shortnessof breath? NO If YES to any of these above symptoms, send a message to triage and do not book. Red dot. If no, an audio or video visit should be booked. ?? Have you had close contact with someone with Coronavirus in the last 14 days? NO ?? Have you traveled abroad? NO ?? Have you traveled recently to another state outside of [place], [place], [place], [place], [place], [place], [place]? NO o If yes, did you quarantine for 14 days or have a negative covid test? NO If yes to any of the above, patient is not to be scheduled in office until after 14 day quarantine or negative covid test. If pain or injury related was it due to an accident at work or from a motor vehicle accident? NO If yes, gather 3rd green party insurance information Date of accident/Injury: n/a How long has patient had these symptoms: on going PCP: Caterina Sena Payor: [facility]/MEDICARE PPO / Plan: [facility] MDCR-ADV PPO $25/$45 [place] / Product Type: MEDICARE [id number] documented in this encounter Plan of Treatment Not on file documented as of this encounter Visit Diagnoses Not on filedocumented in this encounter Care Teams Billing Services Manager Relationship Specialty Start Date End Date Caterina Sena MD PCP - General Family Practice 12/12/21 04/27/24 Le Recinos, DO [address] [place] [address] PCP - General Internal Medicine 04/28/24 Ben Martin MD Specialist Cardiology 03/22/22 Jason Lin MD Lung Cancer Lighting Engineer 04/04/23 Sania Browning PA-C [address] [phone] Thoracic Surgery 05/13/23 Juan Miguel Solis PA-C [address] [phone] Specialist Thoracic Surgery 05/16/23 [facility] Dermatology & Laser 08/19/23 documented as of this encounter
--- OUTSIDE RECORDS SUMMARY | 2025-03-16 15:27 | XMS_ITS | Encounter Summary ---
Author Organization [facility] Address [address] [place] [address] Care Team Providers Care Senior Administrative Associate Name Role Phone Toby Ortiz MD Primary Care Provider Unavail able Caterina Sena MD Primary Care Provider Ben Pantoja MD Unavailable [phone] Ben Martin MD Unavailable [phone] Jason Lin MD Unavailable Sania Browning PA-C Unavailable [phone] Juan Miguel Solis-Ellis Unavailable [phone] [facility] Dermatology & Laser Unavaila ble Unavailable Le Recinos DO Primary Care Provider [phone] Encounter Details Date Type Department Care Team Description 01/30/2017 Orders Only Radiology - [address] [address] Toby Ortiz MD Screening for diabetes mellitus (Primary Dx) Social History Tobacco Use Types [...] Never 08/19/2023 How often do you attend rastafarian or roman catholic serv ices? Never 08/19/2023 Do you belong to any clubs o r organizations such as rastafarian groups, unions, fraPathDrugomics or athletic groups, or school groups? No [...] to sleep or slept in a senior living (including now)? No 08/19/2023 Sex Assigned at Date Recorded Not on file Job Start Date Occupation Industry Not on file Not on file Not on file documented as of this encounter Plan of Treatment Not on file documented as of this encounter Results * CREATININE, BLOOD ASSAY (01/30/2017 2:23 PM EDT) CREAT 1.0 0.7 - 1.5 mg/dL 01/30/2017 7:10 PM EDT [facility] GFR > 60 >60 01/30/2017 7:10 PM EDT [facility] Comment: If patient is -Portuguese, multiply result by 1.21 Chronic Kidney Disease: < 60 ml/min/1.73 square meters Kidney Failure: < 15 ml/min/1.73 square meters 01/30/2017 2:23 PM EDT 01/30/2017 2:23 PM EDT Toby Ortiz MD LAB Performing Organization Address City/State/[facility] Co de Phone Number [facility] [address] [place] [address] documented in this encounter Visit Diagnoses Diagnosis Screening for diabetes mellitus- Primary documented in this encounter Care Teams Senior Administrative Associate Relationship Specialty Start Date End Date Toby Ortiz MD PCP - General Internal Medicine 07/07/15 12/11/21 Caterina Sena MD PCP - General Family Practice 12/12/21 04/27/24 Le Recinos, [address] [address] PCP - General Internal Medicine 04/28/24 Ben Martin MD Specialist Cardiology 03/22/22 08/18/23 Ben Martin MD Specialist Cardiology 03/22/22 Jason Lin MD Lung Cancer Food Service Sales Representatives 04/04/23 Sania Browning PA-C [address] [phone] Thoracic Surgery 05/13/23 Juan Miguel Solis PA-C [address] [phone] Specialist Thoracic Surgery 05/16/23 [facility] Dermatology & Laser 08/19/23 documented as of this encounter
--- OUTSIDE RECORDS SUMMARY | 2025-03-16 15:27 | XMS_ITS | Encounter Summary ---
Author Organization [facility] Address [address] [place] [address] Care Team Providers Care Special Machine Stitcher Name Role Phone Caterina Sena MD Primary Care Provider Ben Pantoja MD Unavailable [phone] Ben Martin MD Unavailable [phone] Jason Lin MD Unavailable Sania Browning PA-C Unavailable Juan Miguel Solis PA-C Unavailable [phone] [facility] Dermatology & Laser Unavaila ble Unavailable Le Recinos DO Primary Care Provider [phone] Reason for Visit * Reason Comments E-prescribe Rx Request Encounter Details Date Type Department Care Team Description 06/06/2023 Refill Medicine/Pediatrics [address] [address] Caterina Sena MD E-prescribe Rx Request Social History Tobacco [...] Never 08/19/2023 How often do you attend hinduism or hoahaoism serv ices? Never 08/19/2023 Do you belong to any clubs o r organizations such as hinduism groups, unions, fraternal or athletic groups, or [...] PM EST documented as of this encounter Miscellaneous Notes * Telephone Encounter - Caterina Sena MD - 06/06/2023 12:25 PM EST 6 mth supply sent 2 weeks ago * Telephone Encounter - Adrienne Braga M.A. - 06/06/2023 11:51 AM EST Date of last office visit was 05/20/23. Pended appt for 11/18/23 Lab Results Component Value Date NA 138 12/03/2022 K 4.0 12/03/2022 CO2 26 12/03/2022 CL 105 12/03/2022 BUN 11 12/03/2022 CREAT 1.02 12/03/2022 GLU 95 12/03/2022 CA 9.0 12/03/2022 GFR 78 12/03/2022 * Telephone Encounter - Mp Venegas - 06/06/2023 10:28 AM EST Patient would like script to be: E-PRESCRIBED/FAXED TO PHARMACY WHEN WAS THE PATIENT'S LAST APPOINTMENT IN ADULT MEDICINE? 05-20-23 WHEN WAS THE LAST TIME THE PATIENT SAW THEIR PCP? Same as above Does patient have an upcoming appointment? Yes 11-18-23 (THE MEDICATION REQUESTED IS ON THE MED [...] carrier is: [place] / Plan: BS MDCR-ADV PPO $25/$45 [place] / Product Type: MEDICARE [id number] documented in this encounter Plan of Treatment Not on file documented as of this encounter Visit Diagnoses Not on filedocumented in this encounter Care Teams Special Machine Stitcher Relationship Specialty Start Date End Date Caterina Sena MD PCP - General Family Practice 12/12/21 04/27/24 Le Recinos, DO [address] [place] [address] PCP - General Internal Medicine 04/28/24 Ben Martni MD Specialist Cardiology 03/22/22 08/18/23 Ben Martin MD Specialist Cardiology 03/22/22 Jason Lin MD Lung Cancer New Product Trainer 04/04/23 Sania Browning PA-C [address] [phone] Thoracic Surgery 05/13/23 Juan Miguel Solis PA-C [address] [phone] Specialist Thoracic Surgery 05/16/23 [place] [facility] [place] [facility]ology [facility] Laser 08/19/23 documented as of this encounter
--- OUTSIDE RECORDS SUMMARY | 2025-03-16 15:27 | XMS_ITS | Encounter Summary ---
Author Organization [facility] Address [address] [place] [address] Care Team Providers Care Wheel Borer Name Role Phone Toby Ortiz MD Primary Care Provider Unavail able Caterina Sena MD Primary Care Provider Ben Pantoja MD Unavailable [phone] Ben Martin MD Unavailable [phone] Jason Lin MD Unavailable Sania Browning PA-C Unavailable Juan Miguel Solis-Ellis Unavailable [phone] [facility] Dermatology & Laser Unavaila ble Unavailable Le Recinos DO Primary Care Provider [phone] Reason for Visit * Reason Onset Date Comments Warfarin dosing instructions 08/09/2015 Encounter Details Date Type Department Care Team Description 08/09/2015 Telephone Coumadin Clinic - [address] [id number] Nurse, Anticoagulation [address] Warfarin dosing instructions Social History Tobacco Use Types Packs/Day Years Used Date Smoking Tobacco: Every Day Cigarettes 0.8 40 Smokeless Tobacco: Never Comments:12-14 cigarettes da bradley/ Started @ age 13 Alcohol Use Standard Drinks/Week Comments No 0 [...] Never 08/19/2023 How often do you attend gnosticism or zoroastrianism serv ices? Never 08/19/2023 Do you belong to any clubs o r organizations such as gnosticism groups, unions, fraternal or athletic groups, or [...] on filedocumented in this encounter Care Teams Wheel Borer Relationship Specialty Start Date End Date Toby Ortiz MD PCP - General Internal Medicine 07/07/15 12/11/21 Caterina Sena MD PCP - General Family Practice 12/12/21 04/27/24 Le Recinos, DO [address] [place] [address] PCP - General Internal Medicine 04/28/24 Ben Martin MD Specialist Cardiology 03/22/22 08/18/23 Ben Martin MD Specialist Cardiology 03/22/22 Jason Lin MD Lung Cancer Insurance Service Representative 04/04/23 Sania Browning PA-C [address] [phone] Thoracic Surgery 05/13/23 Juan Miguel Solis PA-C [address] [phone] Specialist Thoracic Surgery 05/16/23 [facility] Dermatology & Laser 08/19/23 documented as of this encounter
--- OUTSIDE RECORDS SUMMARY | 2025-03-16 15:27 | XMS_ITS | Encounter Summary ---
Author Organization [facility] Address [address] [place] [address] Care Team Providers Care Bench Worker Binding Name Role Phone Caterina Sena MD Primary Care Provider Ben Pantoja MD Unavailable [phone] Ben Martin MD Unavailable [phone] Jason Lin MD Unavailable Sania Browning PA-C Unavailable [phone] Juan Miguel Solis PA-C Unavailable [facility] Unavaila ble Unavailable Le Recinos DO Primary Care Provider [phone] Encounter Details Date Type Department Care Team Description 06/03/2023 Orders Only [facility] Thoracic Surgery [place] 299 [facility] [address] [place] [address] Juan Miguel Solis PA-C 299 [facility] [address] [place] [address] History of squamous cell carcinoma of skin Social History Tobacco Use Types Packs/Day Years [...] Never 08/19/2023 How often do you attend jewish or mandaen serv ices? Never 08/19/2023 Do you belong to any clubs o r organizations such as jewish groups, unions, fraternal or athletic groups, or [...] CHG RADIOLOGIC EXAM CHEST 2 VIEWS Routine 06/02/2023 History of squamous cell carcinoma of skin documented in this encounter Results * RADIOLOGIC EXAM CHEST 2 VIEWS (06/02/2023) Juan Miguel Solis PA-C RADIOLOGY [facility] RAD[facility] documented in this encounter Visit Diagnoses Diagnosis History of squamous cell carcinoma of skin Personal history of other malignant neoplasm of skin documented in this encounter Care Teams Bench Worker Binding Relationship Specialty Start Date End Date Caterina Sena MD PCP - General Family Practice 12/12/21 04/27/24 Le Recinos, DO [address] [place] [address] PCP - General Internal Medicine 04/28/24 Ben Martin MD Specialist Cardiology 03/22/22 08/18/23 Ben Martin MD Specialist Cardiology 03/22/22 Jason Lin MD Lung Cancer Tube Handler 04/04/23 Sania Browning PA-C [address] [address] Thoracic Surgery 05/13/23 Juan Miguel Solis PA-C [address] [address] Specialist Thoracic Surgery 05/16/23 [facility] 08/19/23 documented as of this encounter
== END 2025-03-16 14:53 | disposition home or self-care (01) ==
PROVIDERS: PCP Internal Medicine; Visit Provider Anesthesiology
DX: G89.4 Chronic pain syndrome (principal); M47.816 Spondylosis without myelopathy or radiculopathy, lumbar region; M81.0 Age-related osteoporosis without current pathological fracture; S32.010G Wedge compression fracture of first lumbar vertebra, subsequent encounter for fracture with delayed healing
CPT/HCPCS: 99204

== ENCOUNTER 2025-03-29 06:23 | Outpatient (REF) | payer BC, SELFPAY ==
--- NOTE | ~2025-03-29 | FL_ITS ---
EXAMINATION: FL GUIDANCE ONLY HISTORY: M47.816 - Spondylosis without myelopathy or radiculopathy, lumbar region COMPARISON: None available. TECHNIQUE: Fluoroscopy time: 0.5 minutes. Cumulative Dose: 6.16 mGy. DAP: 0.0882 mGym2 Images: 10. FINDINGS: Fluoroscopic spot films of the lumbar spine in the AP projection demonstrate needles and contrast material in the regions of the bilateral L2-3, L3-4, and L4-5 facet joints. FL/FL guidance in treatment room IMPRESSION: Fluoroscopy during procedure. Please see procedure report for additional information. Electronically signed by: Asim Alvarado MD 03/29/2025 02:40 PM EDT
--- OUTSIDE RECORDS SUMMARY | 2025-03-29 06:26 | XMS_ITS | Encounter Summary ---
Author Organization [facility] Address [address] [place] [address] Care Team Providers Care Landscape Crew Member Name Role Phone FerozLe gomes Primary Care Provider [phone] Encounter Details Date Type Department Care Team (Late st Contact Info) Description 10/06/2024 Lab Requisition [facility] - Main Lab [address] [place] [address] Bernadine Florez MD [address] [place], [place] [phone] Essential (primary) hypertension; jail (current) use of anticoagulants; Chronic obstructive pulmonary [...] Care Team (Late st Contact Info) Description 03/31/2025 1:00 PM EDT Anticoagulation - Warfarin Visit [facility] - [address] [address] 06/03/2025 2:45 PM EST Office Visit Internal Medicine - 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 Chronic obstructive pulmonary disease, unspecified (CMS/HCC) COMPLETE BLOOD COUNT Routine 10/06/2024 8:29 AM EDT Essential (primary) hypertension jail (current) use of anticoagulants Chronic obstructive pulmonary disease, unspecified (CMS/HCC) BASIC METABOLIC PANEL Routine 10/06/2024 8:29 AM EDT 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 (primary) 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 Chronic obstructive pulmonary disease, unspecified (CMS/HCC) documented in this encounter Results * (ABNORMAL) Basic metabolic panel (10/06/2024 8:29 AM EDT) Sodium 137 133 - 145 mmol/L LAB CHEMISTRY METHOD 10/06/2024 1:22 PM EDT [facility] Potassium 4.4 3.5 - 5.5 mmol/L LAB CHEMISTRY METHOD 10/06/2024 1:22 PM T [facility] Chloride 106 96 - 110 mmol/L LAB CHEMISTRY METHOD 10/06/2024 1:22 PM EDT [facility] CO2 21 21 - 32 mmol/L LAB CHEMISTRY METHOD 10/06/2024 1:22 PM EDT [facility] Anion Gap 10 3 - 11 LAB [facility] Glucose 116(H) 70 - 100 mg/dL LAB CHEMISTRY METHOD 10/06/2024 1:22 PM EDT [facility] BUN 12 5 - 25 mg/dL LAB CHEMISTRY METHOD 10/06/2024 1:22 PM [facility] Creatinine 0.84 0.70 - 1.30 mg/dL LAB CHEMISTRY METHOD 10/06/2024 1:22 PM [facility] eGFR 92 >=60 mL/min/1. 73m2 LAB CHEMISTRY METHOD 10/06/2024 1:22 PM [facility] Comment:Calculation based on the Chronic Kidney Disease Epidemiology Collaboration (CKD-EPI) equation refit without adjustment for race. BUN/Creatinine Ratio 14.3 LAB CHEMISTRY METHOD 10/06/2024 1:22 PM [facility] Calcium 8.8 8.5 - 10.5 mg/dL LAB CHEMISTRY METHOD 10/06/2024 1:22 PM [facility] Blood Venous blood specimen / Unknown Venipuncture / Unknown 10/06/2024 8:29 AM EDT 10/06/2024 10:25 AM EDT us Bernadine Florez MD LAB BLOOD ORDERABLES Final Resul t [facility] [address] [place] [address], * (ABNORMAL) Prothrombin time with INR (10/06/2024 8:29 AM EDT) Protime 46.4(H) 10.6 - 13.9 sec LAB COAGULATION METHOD 10/06/2024 12:04 PM EDT [facility] INR 3.8 LAB COAGULATION METHOD 10/06/2024 12:04 PM EDT [facility] Blood Venous blood specimen / Unknown Venipuncture / Unknown 10/06/2024 8:29 AM EDT 10/06/2024 10:25 AM EDT us Bernadine Florez MD LAB BLOOD ORDERABLES Final Resul t [facility] [address] [place] [address], * (ABNORMAL) Complete blood count (10/06/2024 8:29 AM EDT) WBC 7.8 4.8 - 10.8 K/mcL LAB HEMETOLOGY METHOD 10/06/2024 11:56 AM [facility] RBC 4.30(L) 4.50 - 5.50 M/mcL LAB HEMETOLOGY METHOD 10/06/2024 11:56 AM [facility] Hemoglobin 12.2(L) 13.5 - 17.5 g/dL LAB HEMETOLOGY METHOD 10/06/2024 11:56 AM [facility] Hematocrit 37.6(L) 42.0 - 54.0 % LAB HEMETOLOGY METHOD 10/06/2024 11:56 AM EDT [facility] MCV 87.4 79.0 - 98.0 FL LAB HEMETOLOGY METHOD 10/06/2024 11[facility] MCH 28.4 27.0 - 32.0 pcg LAB HEMETOLOGY METHOD 10/06/2024 11:56 AM [facility] MCHC 32.4 32.0 - 37.0 g/dL LAB HEMETOLOGY METHOD 10/06/2024 11:56 [facility] RDW 14.1 11.0 - 15.0 % LAB HEMETOLOGY METHOD 10/06/2024 11:56 AM EDT [facility] Platelets 259 130 - 400 K/mcL LAB HEMETOLOGY METHOD 10/06/2024 11:56 AM EDT [facility] MPV 10.5 7.0 - 11.0 FL LAB HEMETOLOGY METHOD 10/06/2024 11:56 AM EDT [facility] NRBC 0.0 <1.0 % LAB HEMETOLOGY METHOD 10/06/2024 11:56 AM EDT [facility] NRBC Absolute 0.00 <0.10 K/mcL LAB HEMETOLOGY METHOD 10/06/2024 11:56 AM EDT [facility] Blood Venous blood specimen / Unknown Venipuncture / Unknown 10/06/2024 8:29 AM EDT 10/06/2024 10:25 AM EDT us Bernadine Florez MD LAB BLOOD ORDERABLES Final Resul t [facility] [address] [place] [address], documented in this encounter Visit Diagnoses Diagnosis Essential (primary) hypertension Unspecified essential 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
--- OUTSIDE RECORDS SUMMARY | 2025-03-29 06:26 | XMS_ITS | Encounter Summary ---
Author Organization [facility] Address [address] [place] [address] Care Team Providers Care Reject Opener Name Role Phone JorjeLe Primary Care Provider [phone] Encounter Details Date Type Department Care Team (Late st Contact Info) Description 09/21/2024 Lab Requisition [facility] - Main Lab [address] [place] [address] Mukul Connolly [facility] [address] [facility] [address] [place] [address] Unspecified atrial fibrillation (CMS/HCC V24, CMS/HCC V28) [...] Warfarin Visit [facility]mad[facility] Clinic - [facility] [address] [facility] [place] [phone] 06/03/2025 2:45 PM EST Office Visit Internal Medicine - [facility] [address] [facility] [place] [phone] Aide Linares, LEWIS 305 [place], [place] documented as of this encounter Procedures Procedure Name Priority Date/Time Associated Diagnosis Comments PROTHROMBIN TIME WITH INR Routine 09/21/2024 8:38 AM EST Unspecified atrial fibrillation (CMS/HCC) documented in this encounter Results * (ABNORMAL) Prothrombin time with INR (09/21/2024 8:38 AM EST) Protime 15.8(H) 10.6 - 13.9 sec LAB COAGULATION METHOD 09/21/2024 11:25 AM EST [facility] INR 1.3 LAB COAGULATION METHOD 09/21/2024 11:25 AM EST [facility] Blood Venous blood specimen / Unknown Venipuncture / Unknown 09/21/2024 8:38 AM EST 09/21/2024 10:37 AM EST us Mukul TREJO LAB BLOOD ORDERABLES Belinda l Result [facility] [address] [place] [address], documented in this encounter Visit Diagnoses Diagnosis Unspecified atrial fibrillation (CMS/HCC V24, CMS/HCC V28) documented in this encounter Additional Health Concerns Infection Onset Date Last Indicated Resolved Time Tuberculosis Rule-Out 01/12/2025 01/12/20252024 7:05 PM EDT documented as of this encounter Care Teams Reject Opener Relationship Specialty Start Date End Date Le Recinos DO 305 [facility] [place] [address] PCP - General 04/28/24 documented as of this encounter
--- OUTSIDE RECORDS SUMMARY | 2025-03-29 06:26 | XMS_ITS | Encounter Summary ---
Author Organization [facility] Address [address] [place] [address] Care Team Providers Care Fitness Club Manager Name Role Phone JorjeLe Primary Care Provider [phone] Encounter Details Date Type Department Care Team (Late st Contact Info) Description 10/20/[address] [facility] - Main Lab [address] [place] [address] Bernadine Florez MD [address] [place], [place] [phone] Unspecified atrial fibrillation (CMS/HCC V24, CMS/HCC V28) [...] Anticoagulation - Warfarin Visit Coumadin Clinic - [facility] [address] [facility] [place] [phone] 06/03/2025 2:45 PM EST Office Visit Internal Medicine - [facility] [address] [facility] [place] [phone] Aide Linares, LEWIS [address] [place], [place] documented as of this encounter Procedures Procedure Name Priority Date/Time Associated Diagnosis Comments PROTHROMBIN TIME WITH INR Routine 10/21/2024 5:44 AM EDT Unspecified atrial fibrillation (CMS/HCC) documented in this encounter Results * (ABNORMAL) Prothrombin time with INR (10/21/2024 5:44 AM EDT) Protime 25.4(H) 10.6 - 13.9 sec LAB COAGULATION METHOD 10/21/2024 8:31 AM EDT [facility] INR 2.0 LAB COAGULATION METHOD 10/21/2024 8:31 AM EDT [facility] Blood Venous blood specimen / Unknown Venipuncture / Unknown 10/21/2024 5:44 AM EDT 10/21/2024 8:08 AM EDT us Bernadine Florez MD LAB BLOOD ORDERABLES Final Resul t [facility] [address] [place] [address], documented in this encounter Visit Diagnoses Diagnosis Unspecified atrial fibrillation (CMS/HCC V24, CMS/HCC V28) documented in this encounter Additional Health Concerns Infection Onset Date Last Indicated Resolved Time Tuberculosis Rule-Out 01/12/2025 01/12/20252024 7:05 PM EDT documented as of this encounter Care Teams Fitness Club Manager Relationship Specialty Start Date End Date Le Recinos DO [address] [facility] [place] [address] PCP - General 04/28/24 documented as of this encounter
--- OUTSIDE RECORDS SUMMARY | 2025-03-29 06:26 | XMS_ITS | Clinical Summary ---
Author Organization [facility] Address [address] [place] [address] Care Team Providers Care Retail Sales Representative Name Role Phone Caterina Sena MD Primary [...] age to complete this topic Care Teams Retail Sales Representative Relationship Specialty Start Date End Date Caterina Sena MD PCP - General Family Medicine 04/07/23
--- OUTSIDE RECORDS SUMMARY | 2025-03-29 06:26 | XMS_ITS | Encounter Summary ---
Author Organization [facility] Address [address] [place] [address] Care Team Providers Care Court Deputy Name Role Phone JorjeLe Primary Care Provider [phone] Encounter Details Date Type Department Care Team (Late st Contact Info) Description 09/19/2024 Lab Requisition [facility] - Main Lab [address] [place] [address] Bernadine Florez MD [address] [place], [place] [phone] Chronic embolism and thrombosis of unspecified vein [...] Anticoagulation - Warfarin Visit Coumadin Clinic - [facility] [address] [facility] [place] [phone] 06/03/2025 2:45 PM EST Office Visit Internal Medicine - [facility] [address] [facility] [place] [phone] Aide Linares, LEWIS [address] [place], [place] documented as of this encounter Procedures Procedure Name Priority Date/Time Associated Diagnosis Comments PROTHROMBIN TIME WITH INR Routine 09/19/2024 7:48 AM EST Chronic embolism and thrombosis of unspecified vein documented in this encounter Results * (ABNORMAL) Prothrombin time with INR (09/19/2024 7:48 AM EST) Protime 27.7(H) 10.6 - 13.9 sec LAB COAGULATION METHOD 09/19/2024 9:51 AM EST [facility] INR 2.2 LAB COAGULATION METHOD 09/19/2024 9:51 AM EST [facility] Blood Venous blood specimen / Unknown Venipuncture / Unknown 09/19/2024 7:48 AM EST 09/19/2024 8:29 AM EST us Bernadine Florez MD LAB BLOOD ORDERABLES Final Resul t [facility] [address] [place] [address], documented in this encounter Visit Diagnoses Diagnosis Chronic embolism and thrombosis of unspecified vein documented in this encounter Additional Health Concerns Infection Onset Date Last Indicated Resolved Time Tuberculosis Rule-Out 01/12/2025 01/12/20252024 7:05 PM EDT documented as of this encounter Care Teams Court Deputy Relationship Specialty Start Date End Date Le Recinos DO [address] [facility] [place] [address] PCP - General 04/28/24 documented as of this encounter
--- OUTSIDE RECORDS SUMMARY | 2025-03-29 06:26 | XMS_ITS | Encounter Summary ---
Author Organization [facility] Address [address] [place] [address] Care Team Providers Care Truss Maker Name Role Phone FerozLe gomes Primary Care Provider [phone] Encounter Details Date Type Department Care Team (Late st Contact Info) Description 09/20/2024 Lab Requisition [facility] - Main Lab [address] [place] [address] Bernadine Florez MD [address] [place], [place] [phone] 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; Unspecified Escherichia coli [...] Clinic - [facility] [address] [place] [address] 06/03/2025 2:45 PM EST Office Visit Internal Medicine - [facility] [address] [place], [place] [phone] Aide Linares NP [address] [place] [address] documented as of this encounter Procedures Procedure Name Priority Date/Time Associated Diagnosis Comments PROTHROMBIN TIME WITH INR Routine 09/20/2024 7:20 AM EST 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 Unspecified Escherichia coli (E. coli) as the cause of diseases classified elsewhere COMPLETE BLOOD COUNT Routine 09/20/2024 7:20 AM EST termite treater helper (current) use of anticoagulants Unspecified Escherichia coli (E. coli) as the cause of diseases classified elsewhere COMPREHENSIVE METABOLIC PANEL Routine 09/20/2024 7:20 AM EST 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 Unspecified Escherichia coli (E. coli) as the cause of diseases classified elsewhere documented in this encounter Results * (ABNORMAL) Prothrombin time with INR (09/20/2024 7:20 AM EST) Protime 17.7(H) 10.6 - 13.9 sec LAB COAGULATION METHOD 09/20/2024 11:50 AM EST [facility] INR 1.4 LAB COAGULATION METHOD 09/20/2024 11:50 AM EST [facility] Blood Venous blood specimen / Unknown Venipuncture / Unknown 09/20/2024 7:20 AM EST 09/20/2024 10:54 AM EST us Bernadine Florez MD LAB BLOOD ORDERABLES Final Resul t [facility] [address] [place] [address], * (ABNORMAL) Comprehensive metabolic panel (09/20/2024 7:20 AM EST) Sodium 136 133 - 145 mmol/L LAB CHEMISTRY METHOD 09/20/2024 12:18 PM [facility] Potassium 3.9 3.5 - 5.5 mmol/L LAB CHEMISTRY METHOD 09/20/2024 12:18 PM [facility] Chloride 101 96 - 110 mmol/L LAB CHEMISTRY METHOD 09/20/2024 12:18 PM [facility] CO2 25 21 - 32 mmol/L LAB CHEMISTRY METHOD 09/20/2024 12:18 PM [facility] Anion Gap 10 3 - 11 LAB CHEMISTRY METHOD 09/20/2024 12:18 PM [facility] Glucose 99 70 - 100 mg/dL LAB CHEMISTRY METHOD 09/20/2024 12:18 PM [facility] BUN 20 5 - 25 mg/dL LAB CHEMISTRY METHOD 09/20/2024 12:18 PM [facility] Creatinine 0.81 0.70 - 1.30 mg/dL LAB CHEMISTRY METHOD 09/20/2024 12:18 PM [facility] eGFR 93 >=60 mL/min/1. 73m2 LAB CHEMISTRY METHOD 09/20/2024 12:18 PM [facility] Comment:Calculation based on the Chronic Kidney Disease Epidemiology Collaboration (CKD-EPI) equation refit without adjustment for race. BUN/Creatinine Ratio 24.7 LAB CHEMISTRY METHOD 09/20/2024 12:18 PM [facility] Calcium 9.1 8.5 - 10.5 mg/dL LAB CHEMISTRY METHOD 09/20/2024 12:18 PM [facility] AST (SGOT) 32 10 - 42 unit/L LAB CHEMISTRY METHOD 09/20/2024 12:18 PM [facility] ALT (SGPT) 28 10 - 60 unit/L LAB CHEMISTRY METHOD 09/20/2024 12:18 PM [facility] Alkaline Phosphatase 426(H) 42 - 121 unit/L LAB CHEMISTRY METHOD 09/20/2024 12:18 PM [facility] Total Protein 7.1 6.0 - 8.0 g/dL LAB CHEMISTRY METHOD 09/20/2024 12:18 PM [facility] Albumin 3.2 3.2 - 5.0 g/dL LAB CHEMISTRY METHOD 09/20/2024 12:18 PM [facility] Total Bilirubin 0.8 0.0 - 1.4 mg/dL LAB CHEMISTRY METHOD 09/20/2024 12:18 PM [facility] Blood Venous blood specimen / Unknown Venipuncture / Unknown 09/20/2024 7:20 AM EST 09/20/2024 10:54 AM EST us Bernadine Florez MD LAB BLOOD ORDERABLES Final Resul t [facility] [address] [place] [address], * (ABNORMAL) Complete blood count (09/20/2024 7:20 AM EST) WBC 8.1 4.8 - 10.8 K/mcL LAB HEMETOLOGY METHOD 09/20/2024 11:50 AM [facility] RBC 4.00(L) 4.50 - 5.50 M/mcL LAB HEMETOLOGY METHOD 09/20/2024 11:50 AM [facility] Hemoglobin 11.4(L) 13.5 - 17.5 g/dL LAB HEMETOLOGY METHOD 09/20/2024 11:50 AM EST [facility] Hematocrit 36.6(L) 42.0 - 54.0 % LAB HEMETOLOGY METHOD 09/20/2024 11:50 AM [facility] MCV 91.3 79.0 - 98.0 FL LAB HEMETOLOGY METHOD 09/20/2024 11:50 AM [facility] MCH 28.4 27.0 - 32.0 pcg LAB HEMETOLOGY METHOD 09/20/2024 11:50 AM [facility] MCHC 31.1(L) 32.0 - 37.0 g/dL LAB HEMETOLOGY METHOD 09/20/2024 11:50 AM [facility] RDW 14.5 11.0 - 15.0 % LAB HEMETOLOGY METHOD 09/20/2024 11:50 AM [facility] Platelets 263 130 - 400 K/mcL LAB HEMETOLOGY METHOD 09/20/2024 11:50 AM [facility] MPV 10.2 7.0 - 11.0 FL LAB HEMETOLOGY METHOD 09/20/2024 11:50 AM [facility] NRBC 0.0 <1.0 % LAB HEMETOLOGY METHOD 09/20/2024 11:50 AM [facility] NRBC Absolute 0.00 <0.10 K/mcL LAB HEMETOLOGY METHOD 09/20/2024 11:50 AM [facility] Blood Venous blood specimen / Unknown Venipuncture / Unknown 09/20/2024 7:20 AM EST 09/20/2024 10:54 AM EST us Bernadine Florez MD LAB BLOOD ORDERABLES Final Resul t [facility] [address] [place] [address], documented in this encounter Visit Diagnoses Diagnosis 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 Long-term (current) use of anticoagulants Unspecified Escherichia coli (E. coli) as the cause of diseases classified elsewhere documented in this encounter Additional Health Concerns Infection Onset Date Last Indicated Resolved Time Tuberculosis Rule-Out 01/12/2025 01/12/20252024 7:05 PM EDT documented as of this encounter Care Teams Truss Maker Relationship Specialty Start Date End Date Le Recinos DO [address] [place] [address] PCP - General 04/28/24 documented as of this encounter
--- OUTSIDE RECORDS SUMMARY | 2025-03-29 06:26 | XMS_ITS | Encounter Summary ---
Author Organization [facility] Address [address] [place] [address] Care Team Providers Care Supervisor Compressed Yeast Name Role Phone JorjeLe Primary Care Provider [phone] Encounter Details Date Type Department Care Team (Late st Contact Info) Description 09/23/[address] [facility] - Main Lab [address] [place] [address] Bernadine Florez MD [address] [place], [place] [phone] Unspecified atrial fibrillation (CMS/HCC V24, CMS/HCC V28) [...] - Warfarin Visit Coumadin Clinic - [facility] [address] [facility] [place] [phone] 06/03/2025 2:45 PM EST Office Visit Internal Medicine - [facility] [address] [facility] [place] [phone] Aide Linares, LEWIS [address] [place], [place] documented as of this encounter Procedures Procedure Name Priority Date/Time Associated Diagnosis Comments PROTHROMBIN TIME WITH INR Routine 09/24/2024 7:47 AM EST Unspecified atrial fibrillation (CMS/HCC) documented in this encounter Results * (ABNORMAL) Prothrombin time with INR (09/24/2024 7:47 AM EST) Protime 18.4(H) 10.6 - 13.9 sec LAB COAGULATION METHOD 09/24/2024 11:18 AM EST [facility] INR 1.5 LAB COAGULATION METHOD 09/24/2024 11:18 AM EST [facility] Blood Venous blood specimen / Unknown Venipuncture / Unknown 09/24/2024 7:47 AM EST 09/24/2024 10:33 AM EST us Bernadine Florez MD LAB BLOOD ORDERABLES Final Resul t [facility] [address] [place] [address], documented in this encounter Visit Diagnoses Diagnosis Unspecified atrial fibrillation (CMS/HCC V24, CMS/HCC V28) documented in this encounter Additional Health Concerns Infection Onset Date Last Indicated Resolved Time Tuberculosis Rule-Out 01/12/2025 01/12/20252024 7:05 PM EDT documented as of this encounter Care Teams Supervisor Compressed Yeast Relationship Specialty Start Date End Date Le Recinos DO [address] [facility] [place] [address] PCP - General 04/28/24 documented as of this encounter
--- OUTSIDE RECORDS SUMMARY | 2025-03-29 06:26 | XMS_ITS | Encounter Summary ---
Author Organization [facility] Address [address] [place] [address] Care Team Providers Care Enchilada Maker Name Role Phone JorjeLe Primary Care Provider [phone] Encounter Details Date Type Department Care Team (Late st Contact Info) Description 10/29/[address] [facility] - Main Lab [address] [place] [address] Bernadine Florez MD [address] [place], [place] [phone] Unspecified atrial fibrillation (CMS/HCC V24, CMS/HCC V28) [...] Anticoagulation - Warfarin Visit Coumadin Clinic - [facility] [address] [facility] [place] [address] 06/03/2025 2:45 PM EST Office Visit Internal Medicine - [facility] [address] [facility] [place] [address] Aide Linares, LEWIS 305 [place] [address] documented as of this encounter Visit Diagnoses Diagnosis Unspecified atrial fibrillation (CMS/HCC V24, CMS/HCC V28) documented in this encounter Additional Health Concerns Infection Onset Date Last Indicated Resolved Time Tuberculosis Rule-Out 01/12/2025 01/12/20252024 7:05 PM EDT documented as of this encounter Care Teams Enchilada Maker Relationship Specialty Start Date End Date Le Recinos DO [address] [place] [address] PCP - General 04/28/24 documented as of this encounter
--- OUTSIDE RECORDS SUMMARY | 2025-03-29 06:26 | XMS_ITS | Encounter Summary ---
Author Organization [facility] Address [address] [place] [address] Care Team Providers Care Insurance Adviser Name Role Phone JorjeLe Primary Care Provider [phone] Encounter Details Date Type Department Care Team (Late st Contact Info) Description 09/29/2024 Lab Requisition [facility] - Main Lab [address] [place] [address] Bernadine Florez MD [address] [place], [place] [phone] Unspecified atrial fibrillation (CMS/HCC V24, CMS/HCC V28) [...] Anticoagulation - Warfarin Visit Coumadin Clinic - [facility] [address] [facility] [place] [phone] 06/03/2025 2:45 PM EST Office Visit Internal Medicine - [facility] [address] [facility] [place] [phone] Aide Linares, LEWIS 305 [place], [place] documented as of this encounter Procedures Procedure Name Priority Date/Time Associated Diagnosis Comments PROTHROMBIN TIME WITH INR Routine 09/30/2024 6:25 AM EDT Unspecified atrial fibrillation (CMS/HCC) documented in this encounter Results * (ABNORMAL) Prothrombin time with INR (09/30/2024 6:25 AM EDT) Protime 38.4(H) 10.6 - 13.9 sec LAB COAGULATION METHOD 09/30/2024 9:22 AM EDT [facility] INR 3.1 LAB COAGULATION METHOD 09/30/2024 9:22 AM EDT [facility] Blood Venous blood specimen / Unknown Venipuncture / Unknown 09/30/2024 6:25 AM EDT 09/30/2024 8:46 AM EDT us Bernadine Florez MD LAB BLOOD ORDERABLES Final Resul t [facility] [address] [place] [address], documented in this encounter Visit Diagnoses Diagnosis Unspecified atrial fibrillation (CMS/HCC V24, CMS/HCC V28) documented in this encounter Additional Health Concerns Infection Onset Date Last Indicated Resolved Time Tuberculosis Rule-Out 01/12/2025 01/12/20252024 7:05 PM EDT documented as of this encounter Care Teams Insurance Adviser Relationship Specialty Start Date End Date Le Recinos DO [address] [facility] [place] [address] PCP - General 04/28/24 documented as of this encounter
--- OUTSIDE RECORDS SUMMARY | 2025-03-29 06:26 | XMS_ITS | Encounter Summary ---
Author Organization [facility] Address [address] [place] [address] Care Team Providers Care Bridge Maintainer Name Role Phone JorjeLe Primary Care Provider [phone] Encounter Details Date Type Department Care Team (Late st Contact Info) Description 10/01/2024 Lab Requisition [facility] - Main Lab [address] [place] [phone] Bernadine Florez MD [address] [place], [place] [phone] Other malaise; Unspecified atrial fibrillation (CMS/HCC V24, [...] Warfarin Visit Coumadin Clinic - [facility] [place] [facility] [address] [facility] [place] [address] 06/03/2025 2:45 PM EST Office Visit Internal Medicine - [facility] [place] [facility] [address] [facility] [place] [address] Aide Linares, LEWIS 305 [place] [address] documented as of this encounter Visit Diagnoses Diagnosis Other malaise Unspecified atrial fibrillation (CMS/HCC V24, CMS/HCC V28) documented in this encounter Additional Health Concerns Infection Onset Date Last Indicated Resolved Time Tuberculosis Rule-Out 01/12/2025 01/12/20252024 7:05 PM EDT documented as of this encounter Care Teams Bridge Maintainer Relationship Specialty Start Date End Date Le Recinos DO [address] [place] [address] PCP - General 04/28/24 documented as of this encounter
--- OUTSIDE RECORDS SUMMARY | 2025-03-29 06:26 | XMS_ITS | Encounter Summary ---
Author Organization [facility] Address [address] [place] [address] Care Team Providers Care Gluer And Slicer Hand Name Role Phone JorjeLe Primary Care Provider [phone] Encounter Details Date Type Department Care Team (Late st Contact Info) Description 10/23/2024 Lab Requisition [facility] - Main Lab [address] [place] [address] Bernadine Florez MD [address] [place], [place] [address] Unspecified atrial fibrillation (CMS/HCC V24, CMS/HCC V28) [...] Anticoagulation - Warfarin Visit Coumadin Clinic - [facility] [address] [facility] [place] [phone] 06/03/2025 2:45 PM EST Office Visit Internal Medicine - [facility] [address] [facility] [place] [phone] Aide Linares, LEWIS 305 [place], [place] documented as of this encounter Procedures Procedure Name Priority Date/Time Associated Diagnosis Comments PROTHROMBIN TIME WITH INR Routine 10/25/2024 6:52 AM EDT Unspecified atrial fibrillation (CMS/HCC) documented in this encounter Results * (ABNORMAL) Prothrombin time with INR (10/25/2024 6:52 AM EDT) Protime 27.0(H) 10.6 - 13.9 sec LAB COAGULATION METHOD 10/25/2024 9:52 AM EDT [facility] INR 2.2 LAB COAGULATION METHOD 10/25/2024 9:52 AM EDT [facility] Blood Venous blood specimen / Unknown Venipuncture / Unknown 10/25/2024 6:52 AM EDT 10/25/2024 9:17 AM EDT us Bernadine Florez MD LAB BLOOD ORDERABLES Final Resul t [facility] [address] [place] [address], documented in this encounter Visit Diagnoses Diagnosis Unspecified atrial fibrillation (CMS/HCC V24, CMS/HCC V28) documented in this encounter Additional Health Concerns Infection Onset Date Last Indicated Resolved Time Tuberculosis Rule-Out 01/12/2025 01/12/20252024 7:05 PM EDT documented as of this encounter Care Teams Gluer And Slicer Hand Relationship Specialty Start Date End Date Le Recinos DO [address] [facility] [place] [address] PCP - General 04/28/24 documented as of this encounter
--- OUTSIDE RECORDS SUMMARY | 2025-03-29 06:26 | XMS_ITS | Encounter Summary ---
Author Organization [facility] Address [address] [place] [address] Care Team Providers Care Mussel Farmer Name Role Phone JorjeLe Primary Care Provider [phone] Encounter Details Date Type Department Care Team (Late st Contact Info) Description 10/10/2024 Lab Requisition [facility] - Main Lab [address] [place] [phone] Bernadine Florez MD [address] [place], [place] [phone] Other malaise; Unspecified atrial fibrillation (CMS/HCC V24, [...] Anticoagulation - Warfarin Visit Coumadin Clinic - [facility] [address] [place] [address] 06/03/2025 2:45 PM EST Office Visit Internal Medicine - [facility] [address] [place] [address] Aide Linares, LEWIS 305 [place] [address] documented as of this encounter Visit Diagnoses Diagnosis Other malaise Unspecified atrial fibrillation (CMS/HCC V24, CMS/HCC V28) documented in this encounter Additional Health Concerns Infection Onset Date Last Indicated Resolved Time Tuberculosis Rule-Out 01/12/2025 01/12/20252024 7:05 PM EDT documented as of this encounter Care Teams Mussel Farmer Relationship Specialty Start Date End Date Le Recinos DO [address] [place] [address] PCP - General 04/28/24 documented as of this encounter
--- OUTSIDE RECORDS SUMMARY | 2025-03-29 06:26 | XMS_ITS | Encounter Summary ---
Author Organization [facility] Address [address] [place] [address] Care Team Providers Care Trials Manager Name Role Phone JorjeLe Primary Care Provider [phone] Encounter Details Date Type Department Care Team (Late st Contact Info) Description 09/26/2024 Lab Requisition [facility] - Main Lab [address] [place] [address] Bernadine Florez MD [address] [place], [place] [phone] Other malaise; Unspecified atrial fibrillation (CMS/HCC V24, [...] Anticoagulation - Warfarin Visit Coumadin Clinic - [facility] [address] [place] [address] 06/03/2025 2:45 PM EST Office Visit Internal Medicine - [facility] 305 [place], [place] [phone] Aide Linares, LEWIS 305 [place] [address] documented as of this encounter Procedures Procedure [...] LAB COAGULATION METHOD 09/27/2024 9:54 AM EDT [facility] INR 3.0 LAB COAGULATION METHOD 09/27/2024 9:54 AM EDT [facility] Blood Venous blood specimen / Unknown Venipuncture / Unknown 09/27/2024 7:16 AM EDT 09/27/2024 9:30 AM EDT Bernadine Florez MD LAB BLOOD ORDERABLES Final Resul t [facility] [address] [place] [address], * Basic metabolic panel (09/27/2024 7:16 AM EDT) Sodium 136 133 - 145 mmol/L LAB CHEMISTRY METHOD 09/27/2024 10:[address] [facility] Potassium 4.4 3.5 - 5.5 mmol/L LAB CHEMISTRY METHOD 09/27/2024 10:[address] [facility] Chloride 103 96 - 110 mmol/L LAB CHEMISTRY METHOD 09/27/2024 10:[address] [facility] CO2 25 21 - 32 mmol/L LAB CHEMISTRY METHOD 09/27/2024 10:[address] [facility] Anion Gap 8 3 - 11 LAB CHEMISTRY METHOD 09/27/2024 10:[address] [facility] Glucose 99 70 - 100 mg/dL LAB CHEMISTRY METHOD 09/27/2024 10:[address] [facility] BUN 25 5 - 25 mg/dL LAB CHEMISTRY METHOD 09/27/2024 10:[address] [facility] Creatinine 0.97 0.70 - 1.30 mg/dL LAB CHEMISTRY METHOD 09/27/2024 10:[address] [facility] eGFR 82 >=60 mL/min/1. 73m2 LAB CHEMISTRY METHOD 09/27/2024 10:[address] [facility] Comment:Calculation based on the Chronic Kidney Disease Epidemiology Collaboration (CKD-EPI) equation refit without adjustment for race. BUN/Creatinine Ratio 25.8 LAB CHEMISTRY METHOD 09/27/2024 10:[address] [facility] Calcium 9.5 8.5 - 10.5 mg/dL LAB CHEMISTRY METHOD 09/27/2024 10:[address] [facility] Blood Venous blood specimen / Unknown Venipuncture / Unknown 09/27/2024 7:16 AM EDT 09/27/2024 9:16 AM EDT us Bernadine Florez MD LAB BLOOD ORDERABLES Final Resul t [facility] [address] [place] [address], * (ABNORMAL) Complete blood count (09/27/2024 7:16 AM EDT) [facility] Signature WBC 6.6 4.8 - 10.8 K/mcL LAB HEMETOLOGY METHOD 09/27/2024 9:[address] [facility] RBC 4.20(L) 4.50 - 5.50 M/mcL LAB HEMETOLOGY METHOD 09/27/2024 9:[address] [facility] Hemoglobin 11.9(L) 13.5 - 17.5 g/dL LAB HEMETOLOGY METHOD 09/27/2024 9:[address] [facility] Hematocrit 38.0(L) 42.0 - 54.0 % LAB HEMETOLOGY METHOD 09/27/2024 9:[address] [facility] MCV 90.3 79.0 - 98.0 FL LAB HEMETOLOGY METHOD 09/27/2024 9:[address] [facility] MCH 28.3 27.0 - 32.0 pcg LAB HEMETOLOGY METHOD 09/27/2024 9:[address] [facility] MCHC 31.3(L) 32.0 - 37.0 g/dL LAB HEMETOLOGY METHOD 09/27/2024 9:[address] [facility] RDW 14.3 11.0 - 15.0 % LAB HEMETOLOGY METHOD 09/27/2024 9:[address] [facility] Platelets 292 130 - 400 K/mcL LAB HEMETOLOGY METHOD 09/27/2024 9:39 AM EDT [facility] MPV 10.1 7.0 - 11.0 FL LAB HEMETOLOGY METHOD 09/27/2024 9:39 AM EDT [facility] NRBC 0.0 <1.0 % LAB HEMETOLOGY METHOD 09/27/2024 9:39 AM EDT [facility] NRBC Absolute 0.00 <0.10 K/[facility] LAB HEMETOLOGY METHOD 09/27/2024 9:39 AM EDT [facility] Blood Venous blood specimen / Unknown Venipuncture / Unknown 09/27/2024 7:16 AM EDT 09/27/2024 9:26 AM EDT us Bernadine Florez MD LAB BLOOD ORDERABLES Final Resul t [facility] [address] [place] [address], documented in this encounter Visit Diagnoses Diagnosis Other malaise Unspecified atrial fibrillation (CMS/HCC V24, CMS/HCC V28) documented in this encounter Additional Health Concerns Infection Onset Date Last Indicated Resolved Time Tuberculosis Rule-Out 01/12/2025 01/12/20252024 7:05 PM EDT documented as of this encounter Care Teams Trials Manager Relationship Specialty Start Date End Date Le Recinos DO [address] [place] [address] PCP - General 04/28/24 documented as of this encounter
--- OUTSIDE RECORDS SUMMARY | 2025-03-29 06:26 | XMS_ITS | Encounter Summary ---
Author Organization [facility] Address [address] [place] [address] Care Team Providers Care Blackjack Pit Boss Name Role Phone JorjeLe Primary Care Provider [phone] Encounter Details Date Type Department Care Team (Late st Contact Info) Description 10/27/2024 Lab Requisition [facility] - Main Lab [address] [place] [address] Bernadine Florez MD [address] [place], [place] [phone] Unspecified atrial fibrillation (CMS/HCC V24, CMS/HCC V28) [...] Anticoagulation - Warfarin Visit Coumadin Clinic - [facility] [address] [facility] [place] [phone] 06/03/2025 2:45 PM EST Office Visit Internal Medicine - [facility] [address] [facility] [place] [phone] Aide Linares, LEWIS [address] [place], [place] documented as of this encounter Procedures Procedure Name Priority Date/Time Associated Diagnosis Comments PROTHROMBIN TIME WITH INR Routine 10/28/2024 5:32 AM EDT Unspecified atrial fibrillation (CMS/HCC) documented in this encounter Results * (ABNORMAL) Prothrombin time with INR (10/28/2024 5:32 AM EDT) Protime 25.5(H) 10.6 - 13.9 sec LAB COAGULATION METHOD 10/28/2024 10:39 AM EDT [facility] INR 2.1 LAB COAGULATION METHOD 10/28/2024 10:39 AM EDT [facility] Blood Venous blood specimen / Unknown Venipuncture / Unknown 10/28/2024 5:32 AM EDT 10/28/2024 9:27 AM EDT us Bernadine Florez MD LAB BLOOD ORDERABLES Final Resul t [facility] [address] [place] [address], documented in this encounter Visit Diagnoses Diagnosis Unspecified atrial fibrillation (CMS/HCC V24, CMS/HCC V28) documented in this encounter Additional Health Concerns Infection Onset Date Last Indicated Resolved Time Tuberculosis Rule-Out 01/12/2025 01/12/20252024 7:05 PM EDT documented as of this encounter Care Teams Blackjack Pit Boss Relationship Specialty Start Date End Date Le Recinos DO [address] [facility] [place] [address] PCP - General 04/28/24 documented as of this encounter
--- OUTSIDE RECORDS SUMMARY | 2025-03-29 06:26 | XMS_ITS | Encounter Summary ---
Author Organization [facility] Address [address] [place] [address] Care Team Providers Care Catering Truck Driver Name Role Phone JorjeLe Primary Care Provider [phone] Encounter Details Date Type Department Care Team (Late st Contact Info) Description 09/22/2024 Lab Requisition [facility] - Main Lab [address] [place] [address] Bernadine Florez MD [address] [place], [place] [phone] Unspecified atrial fibrillation (CMS/HCC V24, CMS/HCC V28) [...] Anticoagulation - Warfarin Visit Coumadin Clinic - [facility] [address] [facility] [place] [phone] 06/03/2025 2:45 PM EST Office Visit Internal Medicine - [facility] [address] [facility] [place] [phone] Aide Linares, LEWIS 305 [place], [place] documented as of this encounter Procedures Procedure Name Priority Date/Time Associated Diagnosis Comments PROTHROMBIN TIME WITH INR Routine 09/23/2024 6:12 AM EST Unspecified atrial fibrillation (CMS/HCC) documented in this encounter Results * (ABNORMAL) Prothrombin time with INR (09/23/2024 6:12 AM EST) Protime 17.7(H) 10.6 - 13.9 sec LAB COAGULATION METHOD 09/23/2024 9:33 AM EST [facility] INR 1.4 LAB COAGULATION METHOD 09/23/2024 9:33 AM EST [facility] Blood Venous blood specimen / Unknown Venipuncture / Unknown 09/23/2024 6:12 AM EST 09/23/2024 9:14 AM EST us Bernadine Florez MD LAB BLOOD ORDERABLES Final Resul t [facility] [address] [place] [address], documented in this encounter Visit Diagnoses Diagnosis Unspecified atrial fibrillation (CMS/HCC V24, CMS/HCC V28) documented in this encounter Additional Health Concerns Infection Onset Date Last Indicated Resolved Time Tuberculosis Rule-Out 01/12/2025 01/12/20252024 7:05 PM EDT documented as of this encounter Care Teams Catering Truck Driver Relationship Specialty Start Date End Date Le Recinos DO [address] [facility] [place] [address] PCP - General 04/28/24 documented as of this encounter
--- OUTSIDE RECORDS SUMMARY | 2025-03-29 06:26 | XMS_ITS | Encounter Summary ---
Author Organization [facility] Address [address] [place] [address] Care Team Providers Care Wind Farm Operations Manager Name Role Phone JorjeLe Primary Care Provider Encounter Details Date Type Department Care Team (Late st Contact Info) Description 10/13/2024 Lab Requisition [facility] - Main Lab [address] [place] [address] Bernadine Florez MD [address] [place], [place] [phone] Unspecified atrial fibrillation (CMS/HCC V24, CMS/HCC V28) [...] Anticoagulation - Warfarin Visit Coumadin Clinic - [facility] [address] [facility] [place] [phone] 06/03/2025 2:45 PM EST Office Visit Internal Medicine - [facility] [address] [facility] [place] [phone] Aide Linares, LEWIS [address] [place], [place] documented as of this encounter Procedures Procedure Name Priority Date/Time Associated Diagnosis Comments PROTHROMBIN TIME WITH INR Routine 10/14/2024 9:47 AM EDT Unspecified atrial fibrillation (CMS/HCC) documented in this encounter Results * (ABNORMAL) Prothrombin time with INR (10/14/2024 9:47 AM EDT) Protime 17.7(H) 10.6 - 13.9 sec LAB COAGULATION METHOD 10/14/2024 11:09 AM EDT [facility] INR 1.4 LAB COAGULATION METHOD 10/14/2024 11:09 AM EDT [facility] Blood Venous blood specimen / Unknown Venipuncture / Unknown 10/14/2024 9:47 AM EDT 10/14/2024 10:59 AM EDT us Bernadine Florez MD LAB BLOOD ORDERABLES Final Resul t [facility] [address] [place] [address], documented in this encounter Visit Diagnoses Diagnosis Unspecified atrial fibrillation (CMS/HCC V24, CMS/HCC V28) documented in this encounter Additional Health Concerns Infection Onset Date Last Indicated Resolved Time Tuberculosis Rule-Out 01/12/2025 01/12/20252024 7:05 PM EDT documented as of this encounter Care Teams Wind Farm Operations Manager Relationship Specialty Start Date End Date Le Recinos DO [address] [facility] [place] [address] PCP - General 04/28/24 documented as of this encounter
--- OUTSIDE RECORDS SUMMARY | 2025-03-29 06:26 | XMS_ITS | Encounter Summary ---
Author Organization [facility] Address [address] [place] [address] Care Team Providers Care Compliance Professional Name Role Phone JorjeLe Primary Care Provider [phone] Encounter Details Date Type Department Care Team (Late st Contact Info) Description 10/10/2024 Lab Requisition [facility] - Main Lab [address] [place] [phone] Bernadine Florez MD [address] [place], [place] [id number] Other malaise; Unspecified atrial fibrillation (CMS/HCC V24, [...] Anticoagulation - Warfarin Visit Coumadin Clinic - [facility] [address] [place] [phone] 06/03/2025 2:45 PM EST Office Visit Internal Medicine - [facility] [address] [place], [place] [phone] Aide Linares, LEWIS [address] [place], [place] documented as of this encounter Procedures [...] LAB COAGULATION METHOD 10/11/2024 11:33 AM EDT [facility] INR 1.4 LAB COAGULATION METHOD 10/11/2024 11:33 AM EDT [facility] Blood Venous blood specimen / Unknown Venipuncture / Unknown 10/11/2024 6:48 AM EDT 10/11/2024 10:24 AM EDT Bernadine Florez MD LAB BLOOD ORDERABLES Final Resul t [facility] [address] [place] [address], * (ABNORMAL) Basic metabolic panel (10/11/2024 6:48 AM EDT) Sodium 139 133 - 145 mmol/L LAB CHEMISTRY METHOD 10/11/2024 12:02 PM [facility] Potassium 4.0 3.5 - 5.5 mmol/L LAB CHEMISTRY METHOD 10/11/2024 12:02 PM [facility] Chloride 105 96 - 110 mmol/L LAB CHEMISTRY METHOD 10/11/2024 12:02 PM [facility] CO2 24 21 - 32 mmol/L LAB CHEMISTRY METHOD 10/11/2024 12:02 PM [facility] Anion Gap 10 3 - 11 LAB CHEMISTRY METHOD 10/11/2024 12:02 PM [facility] Glucose 100 70 - 100 mg/dL LAB CHEMISTRY METHOD 10/11/2024 12:02 PM [facility] BUN 18 5 - 25 mg/dL LAB CHEMISTRY METHOD 10/11/2024 12:02 PM [facility] Creatinine 0.68(L) 0.70 - 1.30 mg/dL LAB CHEMISTRY METHOD 10/11/2024 12:02 PM [facility] eGFR 98 >=60 mL/min/1. 73m2 LAB CHEMISTRY METHOD 10/11/2024 12:02 PM [facility] Comment:Calculation based on the Chronic Kidney Disease Epidemiology Collaboration (CKD-EPI) equation refit without adjustment for race. BUN/Creatinine Ratio 26.5 LAB CHEMISTRY METHOD 10/11/2024 12:02 PM [facility] Calcium 9.5 8.5 - 10.5 mg/dL LAB CHEMISTRY METHOD 10/11/2024 12:02 PM [facility] Blood Venous blood specimen / Unknown Venipuncture / Unknown 10/11/2024 6:48 AM EDT 10/11/2024 10:23 AM EDT Bernadine Florez MD LAB BLOOD ORDERABLES Final Resul t [facility] [address] [place] [address], * (ABNORMAL) Complete blood count (10/11/2024 6:48 AM EDT) WBC 5.7 4.8 - 10.8 K/mcL LAB HEMETOLOGY METHOD 10/11/2024 11:52 AM [facility] RBC 4.00(L) 4.50 - 5.50 M/mcL LAB HEMETOLOGY METHOD 10/11/2024 11:52 AM [facility] Hemoglobin 11.1(L) 13.5 - 17.5 g/dL LAB HEMETOLOGY METHOD 10/11/2024 11:52 AM [facility] Hematocrit 34.7(L) 42.0 - 54.0 % LAB HEMETOLOGY METHOD 10/11/2024 11:52 AM [facility] MCV 87.0 79.0 - 98.0 FL LAB HEMETOLOGY METHOD 10/11/2024 11:52 AM [facility] MCH 27.8 27.0 - 32.0 pcg LAB HEMETOLOGY METHOD 10/11/2024 11:52 AM [facility] MCHC 32.0 32.0 - 37.0 g/dL LAB HEMETOLOGY METHOD 10/11/2024 11:52 AM [facility] RDW 13.7 11.0 - 15.0 % LAB HEMETOLOGY METHOD 10/11/2024 11:52 AM EDT [facility] Platelets 233 130 - 400 K/mcL LAB HEMETOLOGY METHOD 10/11/2024 11:52 AM EDT [facility] MPV 10.0 7.0 - 11.0 FL LAB HEMETOLOGY METHOD 10/11/2024 11:52 AM EDT [facility] NRBC 0.0 <1.0 % LAB HEMETOLOGY METHOD 10/11/2024 11:52 AM EDT [facility] NRBC Absolute 0.00 <0.10 K/mcL LAB HEMETOLOGY METHOD 10/11/2024 11:52 AM EDT [facility] Blood Venous blood specimen / Unknown Venipuncture / Unknown 10/11/2024 6:48 AM EDT 10/11/2024 10:23 AM EDT us Bernadine Florez MD LAB BLOOD ORDERABLES Final Resul t [facility] [address] [place] [address], documented in this encounter Visit Diagnoses Diagnosis Other malaise Unspecified atrial fibrillation (CMS/HCC V24, CMS/HCC V28) documented in this encounter Additional Health Concerns Infection Onset Date Last Indicated Resolved Time Tuberculosis Rule-Out 01/12/2025 01/12/20252024 7:05 PM EDT documented as of this encounter Care Teams Compliance Professional Relationship Specialty Start Date End Date Le Recinos DO [address] [place] [address] PCP - General 04/28/24 documented as of this encounter
--- OUTSIDE RECORDS SUMMARY | 2025-03-29 06:26 | XMS_ITS | Clinical Summary ---
Author Organization [place] [address] [address] Formerly [facility], [facility] Building Address [address] [place] [phone] Phone Care Team Providers Care Bridge Inspector Name Role Phone Laurie Recinosmana Primary Care Provider [phone] Allergies No known active allergies Medications warfarin [...] day. 1 each 3 5 026 Active enoxaparin (LOVENOX) 80 mg/0.8 mL syringe Inject 0.7 mL (70 mg total) under the skin every 12 (twelve) hours. To discard 10 mg 10 each 1 5 Active Active Problems Problem Noted Date Diagnosed [...] Z-Savage. Squamous cell carcinoma lung , left ([facility] V24, [facility] V28) 06/30/2023 Overview (05/31/2024): 04/30/2023 status post [...] I explained how the size, shape, and foreign exchange position clerk time affect her level of suspicion for [...] that I will have him see his churn operator margarine for a risk assessment as well as a shaper hand to give recommendations around anticoagulation around surgery. He certainly will have to stop his Coumadin 5 days prior to operation but the question of a bridge or what to bridge with. Aortic root dilatation (CMS/HCC V24) 01/24/2023 Coronary artery disease invo lving [place] coronary artery of [place] heart without angina pectoris 06/20/2022 Mixed hyperlipidemia 06/20/2022 Primary hypertension 04/23/2022 Coronary artery disease due to calcified coronar y lesion 03/18/2022 Lab test positive for detection of COVID-19 viru s 07/11/2021 Overview (05/31/2024): 07/03/21, [facility] 07/03/21 Thoracic aortic aneurysm (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 V24) 02/03/2017 Hematuria 02/03/2017 Overview (05/31/2024): Did not schedule urology appt 06/06 COPD (chronic obstructive pu lmonary disease) ([facility] V24, [facility] V28) 02/16/2016 Depression 08/18/2015 Overview (05/31/2024): [facility] Hyperlipidemia with target LDL less than 130 10/2012 Benign neoplasm of colon 05/13/2011 Overview (05/31/2024): 10 mm polyp 2002. Neg CN 2004. Small polyps x 2 at CN 05/13/2011: Pathology report: Tubular adenomas x 2. 2 polyps 05/09; repeat due 2024 Factor V Leiden mutation (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 V24, [facility] V28) 10/03/2010 Heartburn 10/10/2009 Tobacco use disorder 08/25/2008 Cervical disc displacement 03/09/2008 Migraine with aura 07/05/2005 Overview (05/31/2024): Onset in teens, better as an adult. Resolved Problems Problem Noted Date Diagnosed Date Resolved Date SBO (small bowel obstruction ) ([facility] V24, [facility] V28) 08/29/2024 09/16/2024 Encounters Date Type Department Care Team Description 03/25/2025 Anticoagulation - Warfarin [facility] [phone] Kiara Anderson LPN Deep vein thrombosis (DVT) of distal vein of left lower extremity, unspecified chronicity ([facility] V24, [facility] V28) (Primary Dx); Factor V Leiden mutation ([facility] V24) 03/22/2025 Telephone Coumadin [facility] [address] [place] [address] Divina Lozoya LPN 03/17/2025 1:30 PM EDT Anticoagulation - Warfarin Visit Coumadin [address] [phone] Deep vein thrombosis (DVT) of distal vein of left lower extremity, unspecified chronicity ([facility] V24, [facility] V28) (Primary Dx); Factor V Leiden mutation ([facility] V24) 02/24/2025 1:45 PM EDT Anticoagulation - Warfarin Visit Coumadin [address] [phone] Deep vein thrombosis (DVT) of distal vein of left lower extremity, unspecified chronicity ([facility] V24, [facility] V28) (Primary Dx); Factor V Leiden mutation ([facility] V24) 02/10/2025 2:15 PM EDT Office Visit Internal Medicine - [address] [phone] Le Recinos DO Primary hypertension (Primary Dx); Mixed hyperlipidemia; Chronic obstructive pulmonary disease, unspecified COPD type ([facility] V24, [facility] V28); Heartburn; Factor V Leiden mutation ([facility] V24); Chronic midline back pain, unspecified back location; Depression, unspecified depression type 02/10/2025 1:45 PM EDT Anticoagulation - Warfarin Visit Coumadin Clinic [address] [phone] Deep vein thrombosis (DVT) of distal vein of left lower extremity, unspecified chronicity (CMS/HCC V24, CMS/HCC V28) (Primary Dx); Factor V Leiden mutation ([facility]/HCC V24) 02/02/2025 1:00 PM EDT Office Visit Thoracic Surgery - [place] [address] [phone] Mariluz Ngo MD Pulmonary nodule (Primary Dx); Squamous cell carcinoma lung, left (CMS/HCC V24, CMS/HCC V28) 02/01/2025 10:36 AM EDT - 02/01/2025 11:59 PM EDT [facility] Pulmonary [address] [place] [phone] Pulmonary nodule; SOB (shortness of breath) Discharge Disposition: Home or Self Care 02/01/2025 Telephone Pulmonology [address] [phone] Collette Avalos MD 01/25/2025 2:00 PM EDT Office Visit Pulmonology [facility] [address] [phone] Collette Avalos MD Pulmonary nodule (Primary Dx); SOB (shortness of breath) 01/25/2025 1:15 PM EDT Anticoagulation - Warfarin Visit Coumadin [facility] [address] [place] [phone] Deep vein thrombosis (DVT) of distal vein of left lower extremity, unspecified chronicity (CMS/HCC V24, CMS/HCC V28) (Primary Dx); Factor V Leiden mutation ([facility]/HCC V24) 01/17/2025 1:00 PM EDT Anticoagulation - Warfarin Visit [facility]in Clinic [address] [phone] Deep vein thrombosis (DVT) of distal vein of left lower extremity, unspecified chronicity (CMS/HCC V24, CMS/HCC V28) (Primary Dx); Factor V Leiden mutation (CMS/HCC V24) 01/14/2025 Anticoagulation - Warfarin Visit Coumadin Clinic [facility] [address] [place] [phone] Divina Lozoya LPN Deep vein thrombosis (DVT) of distal vein of left lower extremity, unspecified chronicity (CMS/HCC V24, CMS/HCC V28) (Primary Dx); Factor V Leiden mutation (CMS/HCC V24) 01/12/2025 2:17 PM EDT Anesthesia Event [facility] OR [address] [place] [phone] Aide Banda MD Madonick, Maria M, CRNA 01/12/2025 12:35 PM EDT - 01/12/2025 3:15 PM EDT Surgery [facility] OR [address] [place] [address], [place] [phone] Collette Avalos MD FLEXIBLE/ ROBOTIC ASSISTED BRONCHOSCOPY W. LLL FNA, TBBX, CRYO, BAL FOR CYTO AND CULTURE, 11R, 4R, LEVEL 7, 11L, FIDUCIAL PLACEMENT LLL [[id number] (CPT )] 01/12/2025 10:20 AM EDT - 01/12/2025 11:59 PM EDT [facility] [address] [place] [phone] Pain Discharge Disposition: Home or Self Care 01/12/2025 10:15 AM EDT - 01/12/2025 5:37 PM EDT Hospital Encounter [facility] OR [address] [place] [phone] Collette Avalos MD Lung nodule Discharge Disposition: Home or Self Care 01/10/2025 8:15 AM EDT Anticoagulation - Warfarin Visit Coumadin Clinic - [facility] [address] [facility] [place] [phone] Deep vein thrombosis (DVT) of distal vein of left lower extremity, unspecified chronicity (CMS/HCC V24, CMS/HCC V28) (Primary Dx); Factor V Leiden mutation ([facility]/HCC V24) from Last 3 Months Immunizations Name Administration [...] polyps x2: Tubular adenoma x2. APPENDECTOMY PROCEDURE: [place] APPENDECTOMY OTHER SURGICAL HISTORY 04/30/2023 Left PROCEDURE: [place] THORACOSCOPY W/SEGMENTECTOMY; COMMENT: MARCIAL wedge w/ segmentectomy [...] COMMENT: Actinic keratosis 03/08 forehead 03/28 left adventism COPD (chronic obstructive pu lmonary disease) ([facility] V24, [facility] V28) DX:COPD (chronic o bstructive pulmonary disease) ([facility]) Lung cancer ([facility] V24, [facility] V28) status post resection Hypertension Hyperlipidemia Factor V Leiden ([facility] V24) History of DVT (deep vein thrombosis) [...] Anticoagulation - Warfarin Visit Coumadin Clinic - [address] [phone] 06/03/2025 2:45 PM EST Office Visit Internal Medicine - [facility] [address] [place] [phone] Aide Linares, LEWIS [address] [place] [address] Health Maintenance Due Date Last Done Comments [...] this topic Medical Devices Implanted Type Area Orthopedic Nurse Practitioner Device Identifier Shelf Expiration Date Model / Serial / Lot Tray Rad Cath 1lum Poly 4f - [id number] Implanted:Qty: 1 on 09/08/2024 by Savanah Go MD at [facility] Central/Chloe pheral Catheters and Ports Right: Arm BD VASCULAR ACCESS DEVICES FKA BARD ACCESS [id number] 06/19/2026 [id number] / / [id number] Marker Cobra Superlock - Sn/A - [id number] Implanted:Qty: 1 on 01/12/2025 by Collette Avalos MD at [facility] Imaging Implants Left: Lung [employer] SU[employer] [id number] 11/01/2028 [id number] / N/A / [id number] Description:Left lower lobe Procedures Procedure Name Priority Date/Time Associated Diagnosis Comments PROTHROMBIN TIME WITH INR Routine 03/25/2025 10:03 AM EDT Factor V Leiden mutation (CMS/HCC V24) POC PROTIME INR BLOOD Routine 03/17/2025 2:47 PM EDT Deep vein thrombosis (DVT) of distal vein of left lower extremity, unspecified chronicity (CMS/HCC V24, CMS/HCC V28) Factor V Leiden mutation (CMS/HCC V24) POC PROTIME INR BLOOD Routine 02/24/2025 1:32 [...] V28) Factor V Leiden mutation (CMS/HCC V24) SPIROMETRY BRONCHODILATION RESPONSIVENESS PRE/POST BRONCHODILATOR ADMINISTRATION Routine [...] Routine 01/12/2025 2:34 PM EDT Lung nodule AZ BRONCHOSCOPY RIGID/FLEXIBLE W/EBUS >=3 MEDIASTINAL/HILAR LYMPH NODES 01/12/2025 2:17 PM EDT Lung nodule AZ BRONCHOSCOPY RIGID/FLEXIBLE W/TRANSBRONCHIAL LUNG BIOPSY(S) SINGLE LOBE 01/12/2025 2:17 PM EDT Lung nodule AZ BRONCHOSCOPY RIGID/FLEXIBLE COMPUTER ASSISTED IMAGE GUIDED NAVIGATION 01/12/2025 2:17 PM EDT Lung nodule POC PROTIME INR BLOOD Routine 01/10/2025 8:36 AM EDT Deep vein thrombosis (DVT) of distal vein of left lower extremity, unspecified chronicity (CMS/HCC V24, CMS/HCC V28) Factor V Leiden mutation (CMS/HCC V24) BASIC METABOLIC PANEL Routine 12/20/2024 1:31 PM EDT Pulmonary nodule LIPID PANEL WITH REFLEX TO DIRECT LDL Routine 07/28/2024 3:53 PM EST Mixed hyperlipidemia CT LUNG SCREENING LOW DOSE Routine 03/17/2023 3:36 PM EDT Personal history of nicotine dependence HM ABDOMINAL AORTIC ANEURYSM SCRREN Routine 05/30/2020 COLONOSCOPY Routine 05/01/2020 HEPATITIS C SCREENING Routine 01/25/2013 from Last 3 Months or Most Recently Relevant to Health Maintenance Results * (ABNORMAL) Prothrombin time with INR (03/25/2025 10:03 AM EDT) Only the most recent of2 resultswithin the time period is included. Protime 18.1(H) 10.6 - 13.9 sec LAB COAGULATION METHOD 03/25/2025 11:36 AM EDT [facility] INR 1.5 LAB COAGULATION METHOD 03/25/2025 11:36 AM EDT [facility] Blood Venous blood specimen / Unknown Venipuncture / Unknown 03/25/2025 10:03 AM EDT 03/25/2025 10:04 AM EDT us Shahrzad TREJO LAB BLOOD ORDERABLES Final R esult [facility] [address] [place] [address], [place] [phone] * POC Protime INR Blood (03/17/2025 2:47 PM EDT) Only the most recent of6 resultswithin the time period is included. Lot Number INR POC 2.1 Prothrombin Time POC Exp Date Blood 03/17/2025 2:47 PM EDT Wil Shcafer MD POINT OF CARE TEST ENTER/ EDIT ORDERABLES Final Result * Pulmonary function testing: Carbon Monoxide Diffusing Capacity, Spirometry with Bronchodilator, Nitrogen Wash Out (02/01/2025 11:34 AM EDT) Narrative Toshia Hernandez MD - 02/11/2025 3:17 PM EDT Table formatting from the original result was not included. Images from the original result were not included. [facility] Pulmonary Lab [address] [place] [phone] Pulmonary Functions Report Date of service: 02/01/25 [...] disease for which clinical correlation is recommended. us Collette Avlaos MD PFT ORDERABLES Final Resu lt * XR Chest 1 View (01/12/2025 4:33 [...] on 01/12/2025 4:55 PM. Workstation Name - [id number] -------- FINAL REPORT -------- Dictated By: Santy Lorenzana Dictated Date: 01/12/2025 16:41 ET Assigned Physician: Santy Lorenzana Reviewed and Electronically Signed By: Santy Lorenzana Signed Date: 01/12/2025 16:55 ET Workstation ID: [id number] Transcribed By: Self Edit Transcribed Date: 01/12/2025 [...] Lorenzana on 01/12/2025 4:55 PM.Workstation Name - [id number] -------- FINAL REPORT -------- Dictated By: Santy Lorenzana Dictated Date: 01/12/2025 16:41 ET Assigned Physician: Snaty Lorenzana Reviewed and Electronically Signed By: Santy Lorenzana Signed Date: 01/12/2025 16:55 ET Workstation ID: [id number] Transcribed By: Self Edit Transcribed Date: 01/12/2025 16:41 ET us Collette Avalos MD IMG XR PROCEDURES Final Re sult * XR Fluoro Up To 1 Hour (Statistics)(No Report) (01/12/2025 3:45 PM EDT) Narrative RIS PACS/VR - 01/12/2025 3:45 PM EDT This order has been auto-finalized and does not contain a result. Collette Avalos MD IMG FLUOROSCOPY PROCEDURES Final Result RIS PACS/VR * Culture respiratory with gram stain (01/12/2025 2:54 PM EDT) Culture, Respiratory No growth at 3 days 01/15/2025 10:07 AM EDT [facility] Gram Stain Result Many WBCs present 01/15/2025 10:07 AM EDT [facility] Gram Stain Result No organisms seen 01/15/2025 10:07 AM EDT [facility] Wash Structure of lower lobe of left lung / Unknown 01/12/2025 2:54 PM EDT 01/12/2025 3:53 PM EDT Comment:No concern for TB Collette Avalos MD LAB MICROBIOLOGY - GENERAL ORDERABLES Final Result Performing Organization Address City/[facility]/ZIP Co de Phone Number [facility] [address] [place] [address], [place] [phone] * Culture AFB and smear (01/12/2025 2:54 PM EDT) Culture AFB No AFB isolated after 6 weeks. 02/24/2025 9:42 AM EDT [facility] AFB Stain No Acid fast bacilli seen 02/24/2025 9:42 AM EDT [facility] Wash Structure of lower lobe of left lung / Unknown 01/12/2025 2:54 PM EDT 01/12/2025 3:53 PM EDT Comment:No concern for TB Collette Avalos MD LAB MICROBIOLOGY - GENERAL ORDERABLES Final Result [facility] [address] [place] [address], [place] [phone] * Culture fungus, miscellaneous source (01/12/2025 2:54 PM EDT) Culture, Fungus No Yeast or Mold isolated after 4 Weeks. 02/10/2025 12:01 AM EDT [facility] Wash Structure of lower lobe of left lung / Unknown 01/12/2025 2:54 PM EDT 01/12/2025 3:53 PM EDT Comment:No concern for TB us Collette Avalos MD LAB MICROBIOLOGY - GENERAL ORDERABLES Final Result [facility] [address] [place] [address], [place] [phone] * TH AN ENDOTRACHEAL(NO CHARGE) (01/12/2025 2:40 PM EDT) Narrative Jocelyne Negron CRNA - 01/12/2025 2:40 PM EDT Jocelyne Negron CRNA 01/12/2025 2:41 PM General Information and Staff Patient location during procedure: OR Resident/DELIMER: Jocelyne Negron CRNA Performed: resident/BOY/CAA Performed by: Jocelyne Negron CRNA Authorized by: [...] the consensus opinion. 01/14/2025 4:29 PM EDT [facility] Gross Description A. Lung, [...] 01/13/25 (5 pieces) 01/14/2025 4:29 PM EDT [facility] Disclaimer The technical components of this case were performed at [address] [id number] 01/14/2025 4:29 PM EDT [facility] Tissue Structure of lower lobe of left lung / Unknown 01/12/2025 2:36 PM EDT 01/13/2025 7:14 AM EDT us Collette Avalos MD LAB PATHOLOGY ORDERABLES F inal Result [facility] [address] [place] [address], * Non-gynecologic cytology (01/12/2025 2:34 PM EDT) [...] lymph node sampling. Refer to surgical case [id number]. 01/14/2025 4:29 PM EDT [facility] Specimen A Adequacy Satisfactory for evaluation 01/14/2025 4:29 PM EDT [facility] Specimen B Adequacy Satisfactory for evaluation 01/14/2025 4:29 PM EDT [facility] Specimen C Adequacy Satisfactory for evaluation 01/14/2025 4:29 PM T [facility] Specimen D Adequacy Satisfactory for evaluation 01/14/2025 4:29 PM [facility] Specimen E Adequacy Satisfactory for evaluation 01/14/2025 4:29 PM T [facility] Specimen F Adequacy Satisfactory for evaluation 01/14/2025 4:29 PM T [facility] Clinical Information IN CYTO 01/14/2025 4:29 PM EDT [facility] Gross Description A. Lung, [...] and Cell Block. 01/14/2025 4:29 PM EDT [facility] Disclaimer The technical components of this [place] [address] CLIA # [id number] 01/14/2025 4:29 PM EDT [facility] Fine Needle Aspirate Structure [...] MD LAB CYTOLOGY ORDERABLES Fi nal Result [facility] [address] [place] [address], [place] [phone] * (ABNORMAL) Basic metabolic panel (12/20/2024 1:31 PM EDT) Sodium 138 133 - 145 mmol/L LAB CHEMISTRY METHOD 12/20/2024 4:33 PM [facility] Potassium 3.9 3.5 - 5.5 mmol/L LAB CHEMISTRY METHOD 12/20/2024 4:33 PM [facility] Chloride 104 96 - 110 mmol/L LAB CHEMISTRY METHOD 12/20/2024 4:33 PM [facility] CO2 27 21 - 32 mmol/L LAB CHEMISTRY METHOD 12/20/2024 4:33 PM [facility] Anion Gap 7 3 - 11 LAB CHEMISTRY METHOD 12/20/2024 4:33 PM [facility] Glucose 107(H) 70 - 100 mg/dL LAB CHEMISTRY METHOD 12/20/2024 4:33 PM [facility] BUN 11 5 - 25 mg/dL LAB CHEMISTRY METHOD 12/20/2024 4:33 PM [facility] Creatinine 0.81 0.70 - 1.30 mg/dL LAB CHEMISTRY METHOD 12/20/2024 4:33 PM [facility] eGFR 93 >=60 mL/min/1. 73m2 LAB CHEMISTRY METHOD 12/20/2024 4:33 PM [facility] Comment:Calculation based on the Chronic Kidney Disease Epidemiology Collaboration (CKD-EPI) equation refit without adjustment for race. BUN/Creatinine Ratio 13.6 LAB CHEMISTRY METHOD 12/20/2024 4:33 PM [facility] Calcium 9.1 8.5 - 10.5 mg/dL LAB CHEMISTRY METHOD 12/20/2024 4:33 PM [facility] Blood Venous blood specimen / Unknown Venipuncture / Unknown 12/20/2024 1:31 PM EDT 12/20/2024 1:35 PM EDT us Collette Avalos MD LAB BLOOD ORDERABLES Final Result [facility] [address] [place] [address], [place] [phone] * (ABNORMAL) Lipid panel with reflex to direct LDL (07/28/2024 3:53 PM EST) Cholesterol 162 0 - 200 mg/dL LAB CHEMISTRY METHOD 07/28/2024 6:57 PM EST [facility] Triglycerides 212(H) 0 - 150 mg/dL LAB CHEMISTRY METHOD 07/28/2024 6:57 PM EST [facility] HDL 50 >=40 mg/dL LAB CHEMISTRY METHOD 07/28/2024 6:57 PM EST [facility] LDL Calculated 70 0 - 100 mg/dL LAB CHEMISTRY METHOD 07/28/2024 6:57 PM EST [facility] VLDL Cholesterol Hermelindo 42.4 mg/dL LAB CHEMISTRY METHOD 07/28/2024 6:57 PM EST [facility] Non HDL Chol. (LDL+VLDL) 112 <145 mg/dL LAB CHEMISTRY METHOD 07/28/2024 6:57 PM EST [facility] Chol/HDL Ratio 3.2 0.0 - 4.4 LAB CHEMISTRY METHOD 07/28/2024 6:57 PM [facility] Blood Venous blood specimen / Unknown Venipuncture / Unknown 07/28/2024 3:53 PM EST 07/28/2024 3:53 PM EST us Ca Durán NP LAB BLOOD ORDERABLES Final Resul t Performing Organization Address City[facility]/ZIP Co de Phone Number [facility] [address] [place] [address], [place] [phone] * CT LUNG SCREENING LOW DOSE (03/17/2023 3:36 PM EDT) Anatomical Region Laterality Modality Computed Tomogra phy 03/17/2023 1:40 PM EDT Narrative 03/17/2023 3:36 PM EDT [facility] Diagnostic Imaging Department [address] [place] [address] Patient: YURIY JOY Lala /Age/Sex: 1950 - 72 - M Unit#: [id number] Location/Status: SPDICATLS/[facility] CLI Mnemonic/Ordering Site: [facility] Ordering Physician: MARILUZ NGO MD CT Lung [...] Procedure Note Jame Zamora MD - 08/26/2023 [facility] Diagnostic Imaging Department [address] [place] [address] Patient: YURIY JOY /Age/Sex: 1950 - 72 - M Unit#: [id number] Location/Status: SPDICATLS/REG CLI Mnemonic/Ordering Site: [facility] Ordering Physician: MARILUZ NGO MD CT Lung [...] Sign date/Time: 03/17/23 1536 Mariluz Ngo MD IM CT PROCEDURES Final Result * Abdominal Aortic Aneurysm Screen (05/30/2020) Abdominal Aortic Aneurysm (AAA) Screening abstracted, no interpretation Anatomical Region Laterality Modality Other [facility] Provider HEALTH MAINTENANCE Final Result * Colonoscopy (05/01/2020) Colonoscopy abstracted, no interpretation Anatomical Region Laterality Modality Other [facility] Provider HEALTH MAINTENANCE Final Result * Hepatitis C Screening (01/25/2013) Hepatitis C Screening abstracted [facility] Provider HEALTH MAINTENANCE Final Result from Last 3 Months or Most Recently Relevant to Health Maintenance Insurance [employer] [employer] MEDICARE ADVANTAGE Advance Directives Documents on File Type Date Recorded Patient Community Engagement Representative Expl anation Health Care Decision (hx) 06/11/2023 [...] Relationship Healthcare Agent Relationship Communication Britni Joy [facility] Health Care Agent Aide Gamez Daughter Health Care Agent Care Teams Bridge Inspector Relationship Specialty Start Date End Date Le Recinos DO [address] [place] [id number] PCP - General 04/28/24
--- OUTSIDE RECORDS SUMMARY | 2025-03-29 06:26 | XMS_ITS ---
Author Organization [place] [address] [address] Formerly [facility] Building Address [address] [place] [address] Phone Care Team Providers Care Travel Occupational Therapist Name Role Phone Le Recinos DO Primary Care Provider [phone] Active Problems Problem Noted Date Diagnosed Date [...] Z-Savage. Squamous cell carcinoma lung , left (CMS/[facility] V24, CMS/[facility] V28) 06/30/2023 Overview (05/31/2024): 04/30/2023 [...] I explained how the size, shape, and global director air and climate change time affect her level of suspicion for [...] that I will have him see his sec accountant for a risk assessment as well as a manager data to give recommendations around anticoagulation around surgery. He certainly will have to stop his Coumadin 5 days prior to operation but the question of a bridge or what to bridge with. Aortic root dilatation (CMS/HCC V24) 01/24/2023 Coronary artery disease invo lving [place] coronary artery of [place] heart without angina pectoris 06/20/2022 Mixed hyperlipidemia 06/20/2022 Primary hypertension 04/23/2022 Coronary artery disease due to calcified coronar y lesion 03/18/2022 Lab test positive for detection of COVID-19 viru s 07/11/2021 Overview (05/31/2024): 07/03/21, [facility] 07/03/21 Thoracic aortic aneurysm (CMS/HCC V24) Elevated LFTs 11/27/2020 IBS (irritable bowel syndrome) 02/03/2020 Overview (05/31/2024): Diarrhea predominant Chronic diarrhea 12/23/2019 Fatty liver 07/09/2019 Nephrolithiasis 07/09/2019 Diplopia 06/26/2017 Overview (05/31/2024): 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 Neg CN 2004. Small polyps x 2 at CN 05/13/2011: Pathology report: Tubular adenomas x 2. 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 Current Oncology Plans No current plan information found. Past Plans No past plan information found. Radiation Treatments * No radiation treatments are documented for this patient in [facility]. Treatments may have been administered in another system. Lifetime Dose Tracking * Chemical Lifetime Dose Automatic Entry Manual Entr y Fluoro Time 3.58 minutes 3.58 minutes 0 minutes Air Kerma 191.7 mGy 191.7 mGy 0 mGy Resolved Problems Problem Noted Date Diagnosed Date Resolved Date SBO (small bowel obstruction ) ([facility] V24, [facility] V28) 08/29/2024 09/16/2024
--- OUTSIDE RECORDS SUMMARY | 2025-03-29 06:26 | XMS_ITS | Encounter Summary ---
Author Organization [facility] Address [address] [place] [address] Care Team Providers Care Insurance Claims Processor Name Role Phone JorjeLe Primary Care Provider [phone] Encounter Details Date Type Department Care Team (Late st Contact Info) Description 09/21/2024 Lab Requisition [facility] - Main Lab [address] [place] [address] Bernadine Florez MD [address] [place], [place] [id number] Unspecified atrial fibrillation (CMS/HCC V24, CMS/HCC V28) [...] Warfarin Visit Coumad[facility] Clinic - [facility] [address] [facility] [place] [address] 06/03/2025 2:45 PM EST Office Visit Internal Medicine - [facility] [address] [facility] [place] [address] Aide Linares, LEWIS [address] [place] [address] documented as of this encounter Visit Diagnoses Diagnosis Unspecified atrial fibrillation (CMS/HCC V24, CMS/HCC V28) documented in this encounter Additional Health Concerns Infection Onset Date Last Indicated Resolved Time Tuberculosis Rule-Out 01/12/2025 01/12/20252024 7:05 PM EDT documented as of this encounter Care Teams Insurance Claims Processor Relationship Specialty Start Date End Date Le Recinos DO [address] [facility] [place] [address] PCP - General 04/28/24 documented as of this encounter
--- OUTSIDE RECORDS SUMMARY | 2025-03-29 06:26 | XMS_ITS | Encounter Summary ---
Author Organization [facility] Address [address] [place] [address] Care Team Providers Care Systems Management Consultant Name Role Phone Laurie Recinosmansasha SIDDIQUI Primary Care Provider [phone] Encounter Details Date Type Department Care Team (Latest Contact Info) Description 03/25/2025 Anticoagulation - Warfarin Visit [facility] [place] [address] Kiara Anderson LPN Deep vein thrombosis (DVT) of distal vein of left lower extremity, unspecified chronicity (CMS/HCC V24, CMS/HCC V28) (Primary Dx); Factor V Leiden mutation (CMS/HCC V24) Social History Tobacco Use Types Packs/Day Years [...] Anticoagulation - Warfarin Visit Coumadin Clinic - [address] [place] [address] 06/03/2025 2:45 PM EST Office Visit Internal Medicine - [facility] [address] [facility] [place] [address] Aide Linares, LEWIS [address] [place] [address] documented as of this encounter Visit Diagnoses Diagnosis Deep vein thrombosis (DVT) of distal vein of left lower extremity, unspecified chronicity (CMS/HCC V24, CMS/HCC V28)- Primary Factor V Leiden mutation ([facility] V24) Primary hypercoagulable state documented in this encounter Care Teams Systems Management Consultant Relationship Specialty Start Date End Date Le Recinos DO [address] [place] [address] [place] [address] PCP - General 04/28/24 documented as of this encounter
--- OUTSIDE RECORDS SUMMARY | 2025-03-29 06:26 | XMS_ITS | Encounter Summary ---
Author Organization [facility] Address [address] [place] [address] Care Team Providers Care Advertising Copy Writer Name Role Phone JorjeLe Primary Care Provider [phone] Encounter Details Date Type Department Care Team (Late st Contact Info) Description 10/06/2024 Lab Requisition [facility] - Main Lab [address] [place] [address] Bernadine Florez MD [address] [place], [place] [id number] Unspecified atrial fibrillation (CMS/HCC V24, CMS/HCC V28) [...] Anticoagulation - Warfarin Visit Coumadin Clinic - [facility] [address] [facility] [place] [phone] 06/03/2025 2:45 PM EST Office Visit Internal Medicine - [facility] [address] [facility] [place] [phone] Aide Linares, LEWIS 305 [place], [place] documented as of this encounter Procedures Procedure Name Priority Date/Time Associated Diagnosis Comments PROTHROMBIN TIME WITH INR Routine 10/07/2024 6:15 AM EDT Unspecified atrial fibrillation (CMS/HCC) documented in this encounter Results * (ABNORMAL) Prothrombin time with INR (10/07/2024 6:15 AM EDT) Protime 43.1(H) 10.6 - 13.9 sec LAB COAGULATION METHOD 10/07/2024 10:22 AM EDT [facility] INR 3.5 LAB COAGULATION METHOD 10/07/2024 10:22 AM EDT [facility] Blood Venous blood specimen / Unknown Venipuncture / Unknown 10/07/2024 6:15 AM EDT 10/07/2024 8:47 AM EDT us Bernadine Florez MD LAB BLOOD ORDERABLES Final Resul t [facility] [address] [place] [address], documented in this encounter Visit Diagnoses Diagnosis Unspecified atrial fibrillation (CMS/HCC V24, CMS/HCC V28) documented in this encounter Additional Health Concerns Infection Onset Date Last Indicated Resolved Time Tuberculosis Rule-Out 01/12/2025 01/12/20252024 7:05 PM EDT documented as of this encounter Care Teams Advertising Copy Writer Relationship Specialty Start Date End Date Le Recinos DO [address] [facility] [place] [address] PCP - General 04/28/24 documented as of this encounter
--- OUTSIDE RECORDS SUMMARY | 2025-03-29 06:26 | XMS_ITS | Encounter Summary ---
Author Organization [facility] Address [address] [place] [address] Care Team Providers Care Office Electrician Name Role Phone JorjeLe Primary Care Provider [phone] Encounter Details Date Type Department Care Team (Late st Contact Info) Description 10/17/2024 Lab Requisition [facility] - Main Lab [address] [place] [address] Bernadine Florez MD [address] [place], [place] [phone] Unspecified atrial fibrillation (CMS/HCC V24, CMS/HCC V28) [...] Warfarin Visit Coumadin Clinic - [facility] [address] [facility] [place] [phone] 06/03/2025 2:45 PM EST Office Visit Internal Medicine - [facility] [address] [facility] [place] [phone] Aide Linares, LEWIS [address] [place], [place] documented as of this encounter Procedures Procedure Name Priority Date/Time Associated Diagnosis Comments PROTHROMBIN TIME WITH INR Routine 10/18/2024 6:59 AM EDT Unspecified atrial fibrillation (CMS/HCC) documented in this encounter Results * (ABNORMAL) Prothrombin time with INR (10/18/2024 6:59 AM EDT) Protime 24.7(H) 10.6 - 13.9 sec LAB COAGULATION METHOD 10/18/2024 10:43 AM EDT [facility] INR 2.0 LAB COAGULATION METHOD 10/18/2024 10:43 AM EDT [facility] Blood Venous blood specimen / Unknown Venipuncture / Unknown 10/18/2024 6:59 AM EDT 10/18/2024 9:34 AM EDT us Bernadine Florez MD LAB BLOOD ORDERABLES Final Resul t [facility] [address] [place] [address], documented in this encounter Visit Diagnoses Diagnosis Unspecified atrial fibrillation (CMS/HCC V24, CMS/HCC V28) documented in this encounter Additional Health Concerns Infection Onset Date Last Indicated Resolved Time Tuberculosis Rule-Out 01/12/2025 01/12/20252024 7:05 PM EDT documented as of this encounter Care Teams Office Electrician Relationship Specialty Start Date End Date Le Recinos DO [address] [facility] [place] [address] PCP - General 04/28/24 documented as of this encounter
== END 2025-03-29 06:24 | disposition home or self-care (01) ==
LOC: CF 06:23
PROVIDERS: Visit Provider Anesthesiology
DX: M47.816 Spondylosis without myelopathy or radiculopathy, lumbar region (principal)
CPT/HCPCS: 64493; 64494; J2003; J2795; Q9967

== ENCOUNTER 2025-03-29 13:41 | Outpatient (AMB) | payer BC, SELFPAY ==
[2025-03-29 13:59] VITALS: BP 128/75; PULSE 80; RESP 18; O2SAT 96; BMI 23.1
--- NOTE | 2025-03-29 13:59 | A.OFFVIS_ITS ---
Vital Signs 03/29/25 13:59 Height 5 ft 11 in Weight 166 lb BMI 23.1 BP 128/75 Blood Pressure Location Lt brachial Position Sitting Respiration 18 Pulse 80 Pulse Source Pulse Oximeter Pulse Oximetry (%) 96 Oxygen Delivery Method Room Air Intake Visit Reasons: Petr Dx L2-L3-L4 MBB Electromechanical Technologist Required: No Allergies No Known Allergies Allergy (Verified 02/22/25 14:36) Physical Exam Vital Signs: Last Vital Signs Pulse 80 03/29/25 13:59 Resp 18 03/29/25 13:59 BP 128/75 03/29/25 13:59 Pulse Ox 96 03/29/25 13:59 Oxygen Delivery Method Room Air 03/29/25 13:59 BMI result Body Mass Index 23.1 Assessment & Plan Assessment & Plan (1) Spondylosis without myelopathy or radiculopathy, lumbar region: Code(s): M47.816 - Spondylosis without myelopathy or radiculopathy, lumbar region Category: Medical Plan Diagnostic medial branch block L2, L3,L4 bilateral.? ? ?Informed consent was explained to the patient. All questions were explained and? answered.? The patient was taken inside the operating room where he was positioned prone on the operating table. Time-out was performed delineating correct site, side, the nature of the procedure, patient's allergy, . All operating room staff was participating in OR time-out procedure. ? ? The lower back was prepped with ChloraPrep and draped with sterile utility towel s.? C-arm was brought over the operating field and sq picture of L3, L4, L5 vertebra were delineated on the screen.? Point of interest were delineated as confluence of superior articular process of L4 and L5 vertebra bilaterally with corresponding transverse processes.? The projection of the point of interest to the skin were injected with the small amount of local anesthetic lidocaine 2% mixed with ropivacaine 0.5% 1-1 approximately 1 cc.? After that 22 gauge 3.5 inch spinal needle was driven sequentially to the points of interest in tunnel vision fashion. After needles gently contacted the bone at the point of interests the needle was injected with small amount of the contrast.? The injection of the contrast did not demonstrate any intravascular or intrathecal spread of the contrast.? After that injection of the? ropivacaine 0.5%-1cc was performed at each needle location.?After that the needles were removed and Bandaids were applied. Orders: Orders FL guidance in treatment room 03/29/25 M47.816 - Spondylosis without myelopathy or radiculopathy, lumbar region Coding Level of Care Code Procedure Only Diagnoses Spondylosis without myelopathy or radiculopathy, lumbar region M47.816
--- OUTSIDE RECORDS SUMMARY | 2025-03-29 16:11 | XMS_ITS | Encounter Summary ---
Author Organization [facility] Address [address] [place] [address] Care Team Providers Care Senior Commissary Agent Name Role Phone JorjeLe Primary Care Provider [phone] Encounter Details Date Type Department Care Team (Late st Contact Info) Description 09/29/2024 Lab Requisition [facility] - Main Lab [address] [place] [address] Bernadine Florez MD [address] [place], [place] [phone] Unspecified atrial fibrillation (CMS/HCC V24, CMS/HCC V28) [...] Clinic - [facility] [address] [facility] [place] [phone] 06/03/2025 2:45 PM EST Office Visit Internal Medicine - [facility] [address] [facility] [place] [phone] Aide Linares, LEWIS [address] [place], [place] documented as of this encounter Procedures Procedure Name Priority Date/Time Associated Diagnosis Comments PROTHROMBIN TIME WITH INR Routine 09/30/2024 6:25 AM EDT Unspecified atrial fibrillation (CMS/HCC) documented in this encounter Results * (ABNORMAL) Prothrombin time with INR (09/30/2024 6:25 AM EDT) Protime 38.4(H) 10.6 - 13.9 sec LAB COAGULATION METHOD 09/30/2024 9:22 AM EDT [facility] INR 3.1 LAB COAGULATION METHOD 09/30/2024 9:22 AM EDT [facility] Blood Venous blood specimen / Unknown Venipuncture / Unknown 09/30/2024 6:25 AM EDT 09/30/2024 8:46 AM EDT us Bernadine Florez MD LAB BLOOD ORDERABLES Final Resul t [facility] [address] [place] [address], documented in this encounter Visit Diagnoses Diagnosis Unspecified atrial fibrillation (CMS/HCC V24, CMS/HCC V28) documented in this encounter Additional Health Concerns Infection Onset Date Last Indicated Resolved Time Tuberculosis Rule-Out 01/12/2025 01/12/20252024 7:05 PM EDT documented as of this encounter Care Teams Senior Commissary Agent Relationship Specialty Start Date End Date Le Recinos DO [address] [facility] [place] [address] PCP - General 04/28/24 documented as of this encounter
--- OUTSIDE RECORDS SUMMARY | 2025-03-29 16:11 | XMS_ITS | Encounter Summary ---
Author Organization [facility] Address [address] [place] [address] Care Team Providers Care Transmitter Engineer Name Role Phone JorjeLe Primary Care Provider [phone] Encounter Details Date Type Department Care Team (Late st Contact Info) Description 09/21/2024 Lab Requisition [facility] - Main Lab [address] [place] [address] Muukl Connolly PA [facility] [address] [place] [address] Unspecified atrial fibrillation (CMS/HCC V24, CMS/HCC V28) [...] - Warfarin Visit Coumadin Clinic - [facility] [address] [facility] [place] [phone] 06/03/2025 2:45 PM EST Office Visit Internal Medicine - [facility] [address] [facility] [place] [phone] Aide Linares, LEWIS 305 [place], [place] documented as of this encounter Procedures Procedure Name Priority Date/Time Associated Diagnosis Comments PROTHROMBIN TIME WITH INR Routine 09/21/2024 8:38 AM EST Unspecified atrial fibrillation (CMS/HCC) documented in this encounter Results * (ABNORMAL) Prothrombin time with INR (09/21/2024 8:38 AM EST) Protime 15.8(H) 10.6 - 13.9 sec LAB COAGULATION METHOD 09/21/2024 11:25 AM EST [facility] INR 1.3 LAB COAGULATION METHOD 09/21/2024 11:25 AM EST [facility] Blood Venous blood specimen / Unknown Venipuncture / Unknown 09/21/2024 8:38 AM EST 09/21/2024 10:37 AM EST us Mukul TREJO LAB BLOOD ORDERABLES Belinda l Result [facility] [address] [place] [address], documented in this encounter Visit Diagnoses Diagnosis Unspecified atrial fibrillation (CMS/HCC V24, CMS/HCC V28) documented in this encounter Additional Health Concerns Infection Onset Date Last Indicated Resolved Time Tuberculosis Rule-Out 01/12/2025 01/12/20252024 7:05 PM EDT documented as of this encounter Care Teams Transmitter Engineer Relationship Specialty Start Date End Date Le Recinos DO 305 [facility] [place] [address] PCP - General 04/28/24 documented as of this encounter
--- OUTSIDE RECORDS SUMMARY | 2025-03-29 16:11 | XMS_ITS | Encounter Summary ---
Author Organization [facility] Address [address] [place] [address] Care Team Providers Care Payer Specialist Name Role Phone JorjeLe Primary Care Provider [phone] Encounter Details Date Type Department Care Team (Late st Contact Info) Description 09/26/2024 Lab Requisition [facility] - Main Lab [address] [place] [address] Bernadine Florez MD [address] [place], [place] [phone] Other malaise; Unspecified atrial fibrillation (CMS/HCC V24, [...] Anticoagulation - Warfarin Visit Coumadin Clinic - [facility] [address] [place] [address] 06/03/2025 2:45 PM EST Office Visit Internal Medicine - [facility] [address] [place], [place] [phone] Aide Linares, LEWIS [address] [place] [address] documented as of this encounter Procedures Procedure [...] LAB COAGULATION METHOD 09/27/2024 9:54 AM EDT [facility] INR 3.0 LAB COAGULATION METHOD 09/27/2024 9:54 AM EDT [facility] Blood Venous blood specimen / Unknown Venipuncture / Unknown 09/27/2024 7:16 AM EDT 09/27/2024 9:30 AM EDT Bernadine Florez MD LAB BLOOD ORDERABLES Final Resul t [facility] [address] [place] [address], * Basic metabolic panel (09/27/2024 7:16 AM EDT) Sodium 136 133 - 145 mmol/L LAB CHEMISTRY METHOD 09/27/2024 10:08 AM [facility] Potassium 4.4 3.5 - 5.5 mmol/L LAB CHEMISTRY METHOD 09/27/2024 10:08 AM [facility] Chloride 103 96 - 110 mmol/L LAB CHEMISTRY METHOD 09/27/2024 10:08 AM [facility] CO2 25 21 - 32 mmol/L LAB CHEMISTRY METHOD 09/27/2024 10:08 AM [facility] Anion Gap 8 3 - 11 LAB CHEMISTRY METHOD 09/27/2024 10:08 AM [facility] Glucose 99 70 - 100 mg/dL LAB CHEMISTRY METHOD 09/27/2024 10:08 AM [facility] BUN 25 5 - 25 mg/dL LAB CHEMISTRY METHOD 09/27/2024 10:08 AM [facility] Creatinine 0.97 0.70 - 1.30 mg/dL LAB CHEMISTRY METHOD 09/27/2024 10:08 AM [facility] eGFR 82 >=60 mL/min/1. 73m2 LAB CHEMISTRY METHOD 09/27/2024 10:08 AM [facility] Comment:Calculation based on the Chronic Kidney Disease Epidemiology Collaboration (CKD-EPI) equation refit without adjustment for race. BUN/Creatinine Ratio 25.8 LAB CHEMISTRY METHOD 09/27/2024 10:08 AM [facility] Calcium 9.5 8.5 - 10.5 mg/dL LAB CHEMISTRY METHOD 09/27/2024 10:08 AM [facility] Blood Venous blood specimen / Unknown Venipuncture / Unknown 09/27/2024 7:16 AM EDT 09/27/2024 9:16 AM EDT us Bernadine Florez MD LAB BLOOD ORDERABLES Final Resul t [facility] [address] [place] [address], * (ABNORMAL) Complete blood count (09/27/2024 7:16 AM EDT) [facility] Signature WBC 6.6 4.8 - 10.8 K/mcL LAB HEMETOLOGY METHOD 09/27/2024 9:39 AM [facility] RBC 4.20(L) 4.50 - 5.50 M/mcL LAB HEMETOLOGY METHOD 09/27/2024 9:39 AM [facility] Hemoglobin 11.9(L) 13.5 - 17.5 g/dL LAB HEMETOLOGY METHOD 09/27/2024 9:39 AM [facility] Hematocrit 38.0(L) 42.0 - 54.0 % LAB HEMETOLOGY METHOD 09/27/2024 9:39 AM [facility] MCV 90.3 79.0 - 98.0 FL LAB HEMETOLOGY METHOD 09/27/2024 9:39 AM [facility] MCH 28.3 27.0 - 32.0 pcg LAB HEMETOLOGY METHOD 09/27/2024 9:39 AM [facility] MCHC 31.3(L) 32.0 - 37.0 g/dL LAB HEMETOLOGY METHOD 09/27/2024 9:39 AM [facility] RDW 14.3 11.0 - 15.0 % LAB HEMETOLOGY METHOD 09/27/2024 9:39 AM [facility] Platelets 292 130 - 400 K/mcL LAB HEMETOLOGY METHOD 09/27/2024 9:39 AM EDT [facility] MPV 10.1 7.0 - 11.0 FL LAB HEMETOLOGY METHOD 09/27/2024 9:39 AM EDT [facility] NRBC 0.0 <1.0 % LAB HEMETOLOGY METHOD 09/27/2024 9:39 AM EDT [facility] NRBC Absolute 0.00 <0.10 K/[facility] LAB HEMETOLOGY METHOD 09/27/2024 9:39 AM EDT [facility] Blood Venous blood specimen / Unknown Venipuncture / Unknown 09/27/2024 7:16 AM EDT 09/27/2024 9:26 AM EDT us Bernadine Florez MD LAB BLOOD ORDERABLES Final Resul t [facility] [address] [place] [address], documented in this encounter Visit Diagnoses Diagnosis Other malaise Unspecified atrial fibrillation (CMS/HCC V24, CMS/HCC V28) documented in this encounter Additional Health Concerns Infection Onset Date Last Indicated Resolved Time Tuberculosis Rule-Out 01/12/2025 01/12/20252024 7:05 PM EDT documented as of this encounter Care Teams Payer Specialist Relationship Specialty Start Date End Date Le Recinos DO [address] [place] [address] PCP - General 04/28/24 documented as of this encounter
--- OUTSIDE RECORDS SUMMARY | 2025-03-29 16:11 | XMS_ITS | Encounter Summary ---
Author Organization [facility] Address [address] [place] [address] Care Team Providers Care Bulk Truck Driver Name Role Phone JorjeLe Primary Care Provider [phone] Encounter Details Date Type Department Care Team (Late st Contact Info) Description 09/22/2024 Lab Requisition [facility] - Main Lab [address] [place] [address] Bernadine Florez MD [address] [place], [place] [phone] Unspecified atrial fibrillation (CMS/HCC V24, CMS/HCC V28) [...] Anticoagulation - Warfarin Visit Coumadin Clinic - [facility] [address] [facility] [place] [phone] 06/03/2025 2:45 PM EST Office Visit Internal Medicine - [facility] [address] [facility] [place] [phone] Aide Linares, LEWIS [address] [place], [place] documented as of this encounter Procedures Procedure Name Priority Date/Time Associated Diagnosis Comments PROTHROMBIN TIME WITH INR Routine 09/23/2024 6:12 AM EST Unspecified atrial fibrillation (CMS/HCC) documented in this encounter Results * (ABNORMAL) Prothrombin time with INR (09/23/2024 6:12 AM EST) Protime 17.7(H) 10.6 - 13.9 sec LAB COAGULATION METHOD 09/23/2024 9:33 AM EST [facility] INR 1.4 LAB COAGULATION METHOD 09/23/2024 9:33 AM EST [facility] Blood Venous blood specimen / Unknown Venipuncture / Unknown 09/23/2024 6:12 AM EST 09/23/2024 9:14 AM EST us Bernadine Florez MD LAB BLOOD ORDERABLES Final Resul t [facility] [address] [place] [address], documented in this encounter Visit Diagnoses Diagnosis Unspecified atrial fibrillation (CMS/HCC V24, CMS/HCC V28) documented in this encounter Additional Health Concerns Infection Onset Date Last Indicated Resolved Time Tuberculosis Rule-Out 01/12/2025 01/12/20252024 7:05 PM EDT documented as of this encounter Care Teams Bulk Truck Driver Relationship Specialty Start Date End Date Le Recinos DO [address] [facility] [place] [address] PCP - General 04/28/24 documented as of this encounter
--- OUTSIDE RECORDS SUMMARY | 2025-03-29 16:11 | XMS_ITS | Clinical Summary ---
Author Organization [facility] Address [address] [place] [address] Care Team Providers Care Hydrotreater Operator Name Role Phone Caterina Sena MD Primary [...] age to complete this topic Care Teams Hydrotreater Operator Relationship Specialty Start Date End Date Caterina Sena MD PCP - General Family Medicine 04/07/23
--- OUTSIDE RECORDS SUMMARY | 2025-03-29 16:11 | XMS_ITS | Encounter Summary ---
Author Organization [facility] Address [address] [place] [address] Care Team Providers Care Neon Sign Installer Name Role Phone JorjeLe Primary Care Provider [phone] Encounter Details Date Type Department Care Team (Late st Contact Info) Description 09/21/2024 Lab Requisition [facility] - Main Lab [address] [place] [address] Bernadine Florez MD [address] [place], [place] [phone] Unspecified atrial fibrillation (CMS/HCC V24, CMS/HCC V28) [...] Warfarin Visit Coumadin Clinic - [facility] [address] [place] [address] 06/03/2025 2:45 PM EST Office Visit Internal Medicine - [facility] [address] [facility] [address] Aide Linares, LEWIS 305 [place] [address] documented as of this encounter Visit Diagnoses Diagnosis Unspecified atrial fibrillation (CMS/HCC V24, CMS/HCC V28) documented in this encounter Additional Health Concerns Infection Onset Date Last Indicated Resolved Time Tuberculosis Rule-Out 01/12/2025 01/12/20252024 7:05 PM EDT documented as of this encounter Care Teams Neon Sign Installer Relationship Specialty Start Date End Date Le Recinos DO [address] [place] [place] [address] PCP - General 04/28/24 documented as of this encounter
--- OUTSIDE RECORDS SUMMARY | 2025-03-29 16:11 | XMS_ITS | Encounter Summary ---
Author Organization [facility] Address [address] [place] [address] Care Team Providers Care Biochemistry Technologist Name Role Phone JorjeLe Primary Care Provider [phone] Encounter Details Date Type Department Care Team (Late st Contact Info) Description 09/19/2024 Lab Requisition [facility] - Main Lab [address] [place] [address] Bernadine Florez MD [address] [place], [place] [phone] Chronic embolism and thrombosis of unspecified vein [...] - Warfarin Visit Coumad[facility] Clinic - [facility] [address] [facility] [place] [phone] 06/03/2025 2:45 PM EST Office Visit Internal Medicine - [facility] [address] [facility] [place] [phone] Aide Linares, LEWIS 305 [place], [place] documented as of this encounter Procedures Procedure Name Priority Date/Time Associated Diagnosis Comments PROTHROMBIN TIME WITH INR Routine 09/19/2024 7:48 AM EST Chronic embolism and thrombosis of unspecified vein documented in this encounter Results * (ABNORMAL) Prothrombin time with INR (09/19/2024 7:48 AM EST) Protime 27.7(H) 10.6 - 13.9 sec LAB COAGULATION METHOD 09/19/2024 9:51 AM EST [facility] INR 2.2 LAB COAGULATION METHOD 09/19/2024 9:51 AM EST [facility] Blood Venous blood specimen / Unknown Venipuncture / Unknown 09/19/2024 7:48 AM EST 09/19/2024 8:29 AM EST us Bernadine Florez MD LAB BLOOD ORDERABLES Final Resul t [facility] [address] [place] [address], documented in this encounter Visit Diagnoses Diagnosis Chronic embolism and thrombosis of unspecified vein documented in this encounter Additional Health Concerns Infection Onset Date Last Indicated Resolved Time Tuberculosis Rule-Out 01/12/2025 01/12/20252024 7:05 PM EDT documented as of this encounter Care Teams Biochemistry Technologist Relationship Specialty Start Date End Date Le Recinos DO [address] [facility] [place] [address] PCP - General 04/28/24 documented as of this encounter
--- OUTSIDE RECORDS SUMMARY | 2025-03-29 16:11 | XMS_ITS | Encounter Summary ---
Author Organization [facility] Address [address] [place] [address] Care Team Providers Care Deli Cutter Slicer Name Role Phone JorjeLe Primary Care Provider [phone] Encounter Details Date Type Department Care Team (Late st Contact Info) Description 10/01/2024 Lab Requisition [facility] - Main Lab [address] [place] [address] Bernadine Florez MD [address] [place], [place] [phone] Other malaise; Unspecified atrial fibrillation (CMS/HCC V24, [...] Anticoagulation - Warfarin Visit Coumadin Clinic - [facility] [address] [facility] [place] [phone] 06/03/2025 2:45 PM EST Office Visit Internal Medicine - [facility] [address] [place] [address] Aide Linares, LEWIS 305 [place] [address] documented as of this encounter Visit Diagnoses Diagnosis Other malaise Unspecified atrial fibrillation (CMS/HCC V24, CMS/HCC V28) documented in this encounter Additional Health Concerns Infection Onset Date Last Indicated Resolved Time Tuberculosis Rule-Out 01/12/2025 01/12/20252024 7:05 PM EDT documented as of this encounter Care Teams Deli Cutter Slicer Relationship Specialty Start Date End Date Le Recinos DO [address] [place] [address] PCP - General 04/28/24 documented as of this encounter
--- OUTSIDE RECORDS SUMMARY | 2025-03-29 16:11 | XMS_ITS | Encounter Summary ---
Author Organization [facility] Address [address] [place] [address] Care Team Providers Care Shuttle Buggy Operator Name Role Phone JorjeLe Primary Care Provider [phone] Encounter Details Date Type Department Care Team (Late st Contact Info) Description 09/23/2024 Lab Requisition [facility] - Main Lab [address] [place] [address] Bernadine Florez MD [address] [place], [place] [phone] Unspecified atrial fibrillation (CMS/HCC V24, CMS/HCC V28) [...] Anticoagulation - Warfarin Visit Coumadin Clinic - [facility] [address] [facility] [place] [phone] 06/03/2025 2:45 PM EST Office Visit Internal Medicine - [facility] [address] [facility] [place] [phone] Aide Linares, LEWIS [address] [place], [place] documented as of this encounter Procedures Procedure Name Priority Date/Time Associated Diagnosis Comments PROTHROMBIN TIME WITH INR Routine 09/24/2024 7:47 AM EST Unspecified atrial fibrillation (CMS/HCC) documented in this encounter Results * (ABNORMAL) Prothrombin time with INR (09/24/2024 7:47 AM EST) Protime 18.4(H) 10.6 - 13.9 sec LAB COAGULATION METHOD 09/24/2024 11:18 AM EST [facility] INR 1.5 LAB COAGULATION METHOD 09/24/2024 11:18 AM EST [facility] Blood Venous blood specimen / Unknown Venipuncture / Unknown 09/24/2024 7:47 AM EST 09/24/2024 10:33 AM EST us Bernadine Florez MD LAB BLOOD ORDERABLES Final Resul t [facility] [address] [place] [address], documented in this encounter Visit Diagnoses Diagnosis Unspecified atrial fibrillation (CMS/HCC V24, CMS/HCC V28) documented in this encounter Additional Health Concerns Infection Onset Date Last Indicated Resolved Time Tuberculosis Rule-Out 01/12/2025 01/12/20252024 7:05 PM EDT documented as of this encounter Care Teams Shuttle Buggy Operator Relationship Specialty Start Date End Date Le Recinos DO [address] [facility] [place] [address] PCP - General 04/28/24 documented as of this encounter
--- OUTSIDE RECORDS SUMMARY | 2025-03-29 16:11 | XMS_ITS | Encounter Summary ---
Author Organization [facility] Address [address] [place] [address] Care Team Providers Care Silver Cleaner Name Role Phone Laurie Recinosmansasha SIDDIQUI Primary Care Provider [phone] Encounter Details Date Type Department Care Team (Latest Contact Info) Description 03/25/2025 Anticoagulation - Warfarin Visit [facility] [place] [address] Kiara Anderson LPN Deep vein thrombosis (DVT) [...] Anticoagulation - Warfarin Visit Coumadin Clinic - [address] [address] 06/03/2025 2:45 PM EST Office Visit Internal Medicine - [facility] [address] [facility] [place] [address] Aide Linares, LEWIS 305 [place] [address] documented as of this encounter Visit Diagnoses Diagnosis Deep vein thrombosis (DVT) of distal vein of left lower extremity, unspecified chronicity (CMS/HCC V24, CMS/HCC V28)- Primary Factor V Leiden mutation ([facility] V24) Primary hypercoagulable state documented in this encounter Care Teams Silver Cleaner Relationship Specialty Start Date End Date Le Recinos DO [address] [place] [address] [place] [address] PCP - General 04/28/24 documented as of this encounter
--- OUTSIDE RECORDS SUMMARY | 2025-03-29 16:11 | XMS_ITS | Encounter Summary ---
Author Organization [facility] Address [address] [place] [address] Care Team Providers Care Foam Cutting Supervisor Name Role Phone FerozLe gomes Primary Care Provider [phone] Encounter Details Date Type Department Care Team (Late st Contact Info) Description 10/06/2024 Lab Requisition [facility] - Main Lab [address] [place] [address] Bernadine Florez MD [address] [place], [place] [phone] Essential (primary) hypertension; senior living (current) use of anticoagulants; Chronic obstructive pulmonary [...] Anticoagulation - Warfarin Visit Coumadin Clinic - [address] [phone] 06/03/2025 2:45 PM EST Office Visit Internal Medicine - [facility] [address] 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) use of anticoagulants Chronic obstructive pulmonary disease, unspecified (CMS/HCC) COMPLETE BLOOD COUNT Routine 10/06/2024 8:29 AM EDT Essential (primary) hypertension senior living (current) use of anticoagulants Chronic obstructive pulmonary disease, unspecified (CMS/HCC) BASIC METABOLIC PANEL Routine 10/06/2024 8:29 AM EDT Essential (primary) hypertension long 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 care social worker (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) use of anticoagulants Chronic obstructive pulmonary disease, unspecified (CMS/HCC) documented in this encounter Results * (ABNORMAL) Basic metabolic panel (10/06/2024 8:29 AM EDT) Sodium 137 133 - 145 mmol/L LAB CHEMISTRY METHOD 10/06/2024 1:22 PM EDT [facility] Potassium 4.4 3.5 - 5.5 mmol/L LAB CHEMISTRY METHOD 10/06/2024 1:22 PM T [facility] Chloride 106 96 - 110 mmol/L LAB CHEMISTRY METHOD 10/06/2024 1:22 PM EDT [facility] CO2 21 21 - 32 mmol/L LAB CHEMISTRY METHOD 10/06/2024 1:22 PM EDT [facility] Anion Gap 10 3 - 11 LAB CHE[facility]STRY [facility]/06[facility]24 [facility] Glucose 116(H) 70 - 100 mg/dL LAB CHEMISTRY METHOD 10/06/2024 1:22 PM EDT [facility] BUN 12 5 - 25 mg/dL LAB CHEMISTRY METHOD 10/06/2024 1:22 PM [facility] Creatinine 0.84 0.70 - 1.30 mg/dL LAB CHEMISTRY METHOD 10/06/2024 1:22 PM [facility] eGFR 92 >=60 mL/min/1. 73m2 LAB CHEMISTRY METHOD 10/06/2024 1:22 PM [facility] Comment:Calculation based on the Chronic Kidney Disease Epidemiology Collaboration (CKD-EPI) equation refit without adjustment for race. BUN/Creatinine Ratio 14.3 LAB CHEMISTRY METHOD 10/06/2024 1:22 PM [facility] Calcium 8.8 8.5 - 10.5 mg/dL LAB CHEMISTRY METHOD 10/06/2024 1:22 PM [facility] Blood Venous blood specimen / Unknown Venipuncture / Unknown 10/06/2024 8:29 AM EDT 10/06/2024 10:25 AM EDT us Bernadine Florez MD LAB BLOOD ORDERABLES Final Resul t [facility] [address] [place] [address], * (ABNORMAL) Prothrombin time with INR (10/06/2024 8:29 AM EDT) Protime 46.4(H) 10.6 - 13.9 sec LAB COAGULATION METHOD 10/06/2024 12:04 PM EDT [facility] INR 3.8 LAB COAGULATION METHOD 10/06/2024 12:04 PM EDT [facility] Blood Venous blood specimen / Unknown Venipuncture / Unknown 10/06/2024 8:29 AM EDT 10/06/2024 10:25 AM EDT us Bernadine Florez MD LAB BLOOD ORDERABLES Final Resul t [facility] [address] [place] [address], * (ABNORMAL) Complete blood count (10/06/2024 8:29 AM EDT) WBC 7.8 4.8 - 10.8 K/mcL LAB HEMETOLOGY METHOD 10/06/2024 11:56 AM [facility] RBC 4.30(L) 4.50 - 5.50 M/mcL LAB HEMETOLOGY METHOD 10/06/2024 11:56 AM [facility] Hemoglobin 12.2(L) 13.5 - 17.5 g/dL LAB HEMETOLOGY METHOD 10/06/2024 11:56 AM [facility] Hematocrit 37.6(L) 42.0 - 54.0 % LAB HEMETOLOGY METHOD 10/06/2024 11:56 AM EDT [facility] MCV 87.4 79.0 - 98.0 FL LAB HEMETOLOGY METHOD 10/06[facility]2024 [facility] MCH 28.4 27.0 - 32.0 pcg LAB HEMETOLOGY METHOD 10/06/2024 11:56 AM [facility] MCHC 32.4 32.0 - 37.0 g/dL LAB HEMETOLOGY METHOD 10/06/2024 11[facility] RDW 14.1 11.0 - 15.0 % LAB HEMETOLOGY METHOD 10/06/2024 11:56 AM EDT [facility] Platelets 259 130 - 400 K/mcL LAB HEMETOLOGY METHOD 10/06/2024 11:56 AM EDT [facility] MPV 10.5 7.0 - 11.0 FL LAB HEMETOLOGY METHOD 10/06/2024 11:56 AM EDT [facility] NRBC 0.0 <1.0 % LAB HEMETOLOGY METHOD 10/06/2024 11:56 AM EDT [facility] NRBC Absolute 0.00 <0.10 K/mcL LAB HEMETOLOGY METHOD 10/06/2024 11:56 AM EDT [facility] Blood Venous blood specimen / Unknown Venipuncture / Unknown 10/06/2024 8:29 AM EDT 10/06/2024 10:25 AM EDT us Bernadine Florez MD LAB BLOOD ORDERABLES Final Resul t [facility] [address] [place] [address], documented in this encounter Visit Diagnoses Diagnosis Essential (primary) hypertension Unspecified essential hypertension long term care social worker (current) use of anticoagulants Long-term (current) use of anticoagulants Chronic obstructive pulmonary disease, unspecified (CMS/HCC V24, CMS/HCC V28) documented in this encounter Additional Health Concerns Infection Onset Date Last Indicated Resolved Time Tuberculosis Rule-Out 01/12/2025 01/12/20252024 7:05 PM EDT documented as of this encounter Care Teams Foam Cutting Supervisor Relationship Specialty Start Date End Date Le Recinos DO [address] [place] [address] PCP - General 04/28/24 documented as of this encounter
--- OUTSIDE RECORDS SUMMARY | 2025-03-29 16:11 | XMS_ITS | Encounter Summary ---
Author Organization [facility] Address [address] [place] [address] Care Team Providers Care Director Advertising Name Role Phone FerozLe gomes Primary Care Provider [phone] Encounter Details Date Type Department Care Team (Late st Contact Info) Description 09/20/2024 Lab Requisition [facility] - Main Lab [address] [place] [address] Bernadine Florez MD [address] [place], [place] [phone] MCFP (current) use of anticoagulants; Unspecified Escherichia coli [...] Clinic - [facility] [address] [place] [address] 06/03/2025 2:45 PM EST Office Visit Internal Medicine - [facility] [address] [place], [place] [phone] Aide Linares NP [address] [place] [address] documented as of this encounter Procedures Procedure Name Priority Date/Time Associated Diagnosis Comments PROTHROMBIN TIME WITH INR Routine 09/20/2024 7:20 AM EST MCFP (current) use of anticoagulants Unspecified Escherichia coli (E. coli) as the cause of diseases classified elsewhere COMPLETE BLOOD COUNT Routine 09/20/2024 7:20 AM EST termite control servicer (current) use of anticoagulants Unspecified Escherichia coli (E. coli) as the cause of diseases classified elsewhere COMPREHENSIVE METABOLIC PANEL Routine 09/20/2024 7:20 AM EST [facility]FP (current) use of anticoagulants Unspecified Escherichia coli (E. coli) as the cause of diseases classified elsewhere documented in this encounter Results * (ABNORMAL) Prothrombin time with INR (09/20/2024 7:20 AM EST) Protime 17.7(H) 10.6 - 13.9 sec LAB COAGULATION METHOD 09/20/2024 11:50 AM EST [facility] INR 1.4 LAB COAGULATION METHOD 09/20/2024 11:50 AM EST [facility] Blood Venous blood specimen / Unknown Venipuncture / Unknown 09/20/2024 7:20 AM EST 09/20/2024 10:54 AM EST us Bernadine Florez MD LAB BLOOD ORDERABLES Final Resul t [facility] [address] [place] [address], * (ABNORMAL) Comprehensive metabolic panel (09/20/2024 7:20 AM EST) Sodium 136 133 - 145 mmol/L LAB CHEMISTRY METHOD 09/20/2024 12:18 PM [facility] Potassium 3.9 3.5 - 5.5 mmol/L LAB CHEMISTRY METHOD 09/20/2024 12:18 PM [facility] Chloride 101 96 - 110 mmol/L LAB CHEMISTRY METHOD 09/20/2024 12:18 PM [facility] CO2 25 21 - 32 mmol/L LAB CHEMISTRY METHOD 09/20/2024 12:18 PM [facility] Anion Gap 10 3 - 11 LAB CHEMISTRY METHOD 09/20/2024 12:18 PM [facility] Glucose 99 70 - 100 mg/dL LAB CHEMISTRY METHOD 09/20/2024 12:18 PM [facility] BUN 20 5 - 25 mg/dL LAB CHEMISTRY METHOD 09/20/2024 12:18 PM [facility] Creatinine 0.81 0.70 - 1.30 mg/dL LAB CHEMISTRY METHOD 09/20/2024 12:18 PM [facility] eGFR 93 >=60 mL/min/1. 73m2 LAB CHEMISTRY METHOD 09/20/2024 12:18 PM [facility] Comment:Calculation based on the Chronic Kidney Disease Epidemiology Collaboration (CKD-EPI) equation refit without adjustment for race. BUN/Creatinine Ratio 24.7 LAB CHEMISTRY METHOD 09/20/2024 12:18 PM [facility] Calcium 9.1 8.5 - 10.5 mg/dL LAB CHEMISTRY METHOD 09/20/2024 12:18 PM [facility] AST (SGOT) 32 10 - 42 unit/L LAB CHEMISTRY METHOD 09/20/2024 12:18 PM [facility] ALT (SGPT) 28 10 - 60 unit/L LAB CHEMISTRY METHOD 09/20/2024 12:18 PM [facility] Alkaline Phosphatase 426(H) 42 - 121 unit/L LAB CHEMISTRY METHOD 09/20/2024 12:18 PM [facility] Total Protein 7.1 6.0 - 8.0 g/dL LAB CHEMISTRY METHOD 09/20/2024 12:18 PM [facility] Albumin 3.2 3.2 - 5.0 g/dL LAB CHEMISTRY METHOD 09/20/2024 12:18 PM [facility] Total Bilirubin 0.8 0.0 - 1.4 mg/dL LAB CHEMISTRY METHOD 09/20/2024 12:18 PM [facility] Blood Venous blood specimen / Unknown Venipuncture / Unknown 09/20/2024 7:20 AM EST 09/20/2024 10:54 AM EST us Bernadine Florez MD LAB BLOOD ORDERABLES Final Resul t [facility] [address] [place] [address], * (ABNORMAL) Complete blood count (09/20/2024 7:20 AM EST) WBC 8.1 4.8 - 10.8 K/mcL LAB HEMETOLOGY METHOD 09/20/2024 11:50 AM [facility] RBC 4.00(L) 4.50 - 5.50 M/mcL LAB HEMETOLOGY METHOD 09/20/2024 11:50 AM [facility] Hemoglobin 11.4(L) 13.5 - 17.5 g/dL LAB HEMETOLOGY METHOD 09/20/2024 11:50 AM EST [facility] Hematocrit 36.6(L) 42.0 - 54.0 % LAB HEMETOLOGY METHOD 09/20/2024 11:50 AM [facility] MCV 91.3 79.0 - 98.0 FL LAB HEMETOLOGY METHOD 09/20/2024 11:50 AM [facility] MCH 28.4 27.0 - 32.0 pcg LAB HEMETOLOGY METHOD 09/20/2024 11:50 AM [facility] MCHC 31.1(L) 32.0 - 37.0 g/dL LAB HEMETOLOGY METHOD 09/20/2024 11:50 AM [facility] RDW 14.5 11.0 - 15.0 % LAB HEMETOLOGY METHOD 09/20/2024 11:50 AM [facility] Platelets 263 130 - 400 K/mcL LAB HEMETOLOGY METHOD 09/20/2024 11:50 AM [facility] MPV 10.2 7.0 - 11.0 FL LAB HEMETOLOGY METHOD 09/20/2024 11:50 AM [facility] NRBC 0.0 <1.0 % LAB HEMETOLOGY METHOD 09/20/2024 11:50 AM [facility] NRBC Absolute 0.00 <0.10 K/mcL LAB HEMETOLOGY METHOD 09/20/2024 11:50 AM [facility] Blood Venous blood specimen / Unknown Venipuncture / Unknown 09/20/2024 7:20 AM EST 09/20/2024 10:54 AM EST us Bernadine Florez MD LAB BLOOD ORDERABLES Final Resul t [facility] [address] [place] [address], documented in this encounter Visit Diagnoses Diagnosis MCFP (current) use of anticoagulants Long-term (current) use of anticoagulants Unspecified Escherichia coli (E. coli) as the cause of diseases classified elsewhere documented in this encounter Additional Health Concerns Infection Onset Date Last Indicated Resolved Time Tuberculosis Rule-Out 01/12/2025 01/12/20252024 7:05 PM EDT documented as of this encounter Care Teams Director Advertising Relationship Specialty Start Date End Date Le Recinos DO [address] [place] [address] PCP - General 04/28/24 documented as of this encounter
--- OUTSIDE RECORDS SUMMARY | 2025-03-29 16:12 | XMS_ITS | Encounter Summary ---
Author Organization [facility] Address [address] [place] [address] Care Team Providers Care Turn Down Worker Name Role Phone JorjeLe Primary Care Provider [phone] Encounter Details Date Type Department Care Team (Late st Contact Info) Description 10/10/2024 Lab Requisition [facility] - Main Lab [address] [place] [id number] Bernadine Florez MD [address] [place], [place] [phone] Other malaise; Unspecified atrial fibrillation (CMS/HCC V24, [...] Anticoagulation - Warfarin Visit Cou[facility] Clinic - [facility] [address] [facility] [place] [phone] 06/03/2025 2:45 PM EST Office Visit Internal Medicine - [facility] [address] [facility] [place] [address] Aide Linares, LEWIS [address] [place] [address] documented as of this encounter Visit Diagnoses Diagnosis Other malaise Unspecified atrial fibrillation (CMS/HCC V24, CMS/HCC V28) documented in this encounter Additional Health Concerns Infection Onset Date Last Indicated Resolved Time Tuberculosis Rule-Out 01/12/2025 01/12/20252024 7:05 PM EDT documented as of this encounter Care Teams Turn Down Worker Relationship Specialty Start Date End Date Le Recinos DO [address] [place] [address] PCP - General 04/28/24 documented as of this encounter
--- OUTSIDE RECORDS SUMMARY | 2025-03-29 16:12 | XMS_ITS ---
Author Organization [place] [address] [facility] Address [address] [place] [address] Phone Care Team Providers Care Swage Toolsetter Name Role Phone Le Recinos DO Primary Care Provider [phone] Active Problems Problem Noted Date Diagnosed Date [...] Z-Savage. Squamous cell carcinoma lung , left (CMS/[facility] V24, CMS/[facility] V28) 06/30/2023 Overview (05/31/2024): 04/30/2023 [...] that I will have him see his licensed dispensing optician for a risk assessment as well as a terrazzo laborer to give recommendations around anticoagulation around surgery. He certainly will have to stop his Coumadin 5 days prior to operation but the question of a bridge or what to bridge with. Aortic root dilatation (CMS/HCC V24) 01/24/2023 Coronary artery disease invo [place]ving [place] coronary artery of [place] heart without angina pectoris 06/20/2022 Mixed hyperlipidemia 06/20/2022 Primary hypertension 04/23/2022 Coronary artery disease due to calcified coronar y lesion 03/18/2022 Lab test positive for detection of COVID-19 viru s 07/11/2021 Overview (05/31/2024): 07/03/21, [facility] 07/03/21 Thoracic aortic aneurysm (CMS/HCC V24) Elevated LFTs 11/27/2020 IBS (irritable bowel syndrome) 02/03/2020 Overview (05/31/2024): Diarrhea predominant Chronic diarrhea 12/23/2019 Fatty liver 07/09/2019 Nephrolithiasis 07/09/2019 Diplopia 06/26/2017 Overview (05/31/2024): 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 Neg CN 2004. Small polyps x 2 at CN 05/13/2011: Pathology report: Tubular adenomas x 2. 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 Current Oncology Plans No current plan information found. Past Plans No past plan information found. Radiation Treatments * No radiation treatments are documented for this patient in [facility]. Treatments may have been administered in another system. Lifetime Dose Tracking * Chemical Lifetime Dose Automatic Entry Manual Entr y Fluoro Time 3.58 minutes 3.58 minutes 0 minutes Air Kerma 191.7 mGy 191.7 mGy 0 mGy Resolved Problems Problem Noted Date Diagnosed Date Resolved Date SBO (small bowel obstruction ) ([facility] V24, [facility] V28) 08/29/2024 09/16/2024
--- OUTSIDE RECORDS SUMMARY | 2025-03-29 16:12 | XMS_ITS | Encounter Summary ---
Author Organization Address [address] [place] [address] Care Team Providers Care Central Office Operator Name Role Phone JorjeLe Primary Care Provider [phone] Encounter Details Date Type Department Care Team (Late st Contact Info) Description 10/20/2024 Lab Requisition [facility] - Main Lab [address] [place] [address] Bernadine Florez MD [address] [place], [place] [phone] Unspecified atrial fibrillation (CMS/HCC V24, CMS/HCC V28) [...] Anticoagulation - Warfarin Visit Coumadin Clinic - [facility] [address] [facility] [place] [phone] 06/03/2025 2:45 PM EST Office Visit Internal Medicine - [facility] [address] [facility] [place] [phone] Aide Linaers, LEWIS [address] [place], [place] documented as of this encounter Procedures Procedure Name Priority Date/Time Associated Diagnosis Comments PROTHROMBIN TIME WITH INR Routine 10/21/2024 5:44 AM EDT Unspecified atrial fibrillation (CMS/HCC) documented in this encounter Results * (ABNORMAL) Prothrombin time with INR (10/21/2024 5:44 AM EDT) Protime 25.4(H) 10.6 - 13.9 sec LAB COAGULATION METHOD 10/21/2024 8:31 AM EDT [facility] INR 2.0 LAB COAGULATION METHOD 10/21/2024 8:31 AM EDT [facility] Blood Venous blood specimen / Unknown Venipuncture / Unknown 10/21/2024 5:44 AM EDT 10/21/2024 8:08 AM EDT us Bernadine Florez MD LAB BLOOD ORDERABLES Final Resul t [facility] [address] [place] [address], documented in this encounter Visit Diagnoses Diagnosis Unspecified atrial fibrillation (CMS/HCC V24, CMS/HCC V28) documented in this encounter Additional Health Concerns Infection Onset Date Last Indicated Resolved Time Tuberculosis Rule-Out 01/12/2025 01/12/20252024 7:05 PM EDT documented as of this encounter Care Teams Central Office Operator Relationship Specialty Start Date End Date Le Recinos DO [address] [facility] [place] [address] PCP - General 04/28/24 documented as of this encounter
--- OUTSIDE RECORDS SUMMARY | 2025-03-29 16:12 | XMS_ITS | Encounter Summary ---
Author Organization [facility] Address [address] [place] [address] Care Team Providers Care Slip Presser Name Role Phone JorjeLe Primary Care Provider [phone] Encounter Details Date Type Department Care Team (Late st Contact Info) Description 10/29/2024 Lab Requisition [facility] - Main Lab [address] [place] [address] Bernadine Florez MD [address] [place], [place] [phone] Unspecified atrial fibrillation (CMS/HCC V24, CMS/HCC V28) [...] - Warfarin Visit Coumadin Clinic - [facility] [address] [facility] [place] [address] 06/03/2025 2:45 PM EST Office Visit Internal Medicine - [facility] [address] [facility] [place] [address] Aide Linares, LEWIS [address] [place] [address] documented as of this encounter Visit Diagnoses Diagnosis Unspecified atrial fibrillation (CMS/HCC V24, CMS/HCC V28) documented in this encounter Additional Health Concerns Infection Onset Date Last Indicated Resolved Time Tuberculosis Rule-Out 01/12/2025 01/12/20252024 7:05 PM EDT documented as of this encounter Care Teams Slip Presser Relationship Specialty Start Date End Date Le Recinos DO [address] [facility] [place] [address] PCP - General 04/28/24 documented as of this encounter
--- OUTSIDE RECORDS SUMMARY | 2025-03-29 16:12 | XMS_ITS | Encounter Summary ---
Author Organization [facility] Address [address] [place] [address] Care Team Providers Care Hammersmith Helper Name Role Phone JorjeLe Primary Care Provider [phone] Encounter Details Date Type Department Care Team (Late st Contact Info) Description 10/13/2024 Lab Requisition [facility] - Main Lab [address] [facility] [place] [address] Bernadine Florez MD [address] [place], [place] [phone] Unspecified atrial fibrillation (CMS/HCC V24, CMS/HCC V28) [...] Clinic - [facility] [address] [facility] [place] [phone] 06/03/2025 2:45 PM EST Office Visit Internal Medicine - [facility] [address] [facility] [place] [phone] Aide Linares, LEWIS [address] [place], [place] documented as of this encounter Procedures Procedure Name Priority Date/Time Associated Diagnosis Comments PROTHROMBIN TIME WITH INR Routine 10/14/2024 9:47 AM EDT Unspecified atrial fibrillation (CMS/HCC) documented in this encounter Results * (ABNORMAL) Prothrombin time with INR (10/14/2024 9:47 AM EDT) Protime 17.7(H) 10.6 - 13.9 sec LAB COAGULATION METHOD 10/14/2024 11:09 AM EDT [facility] INR 1.4 LAB COAGULATION METHOD 10/14/2024 11:09 AM EDT [facility] Blood Venous blood specimen / Unknown Venipuncture / Unknown 10/14/2024 9:47 AM EDT 10/14/2024 10:59 AM EDT us Bernadine Florez MD LAB BLOOD ORDERABLES Final Resul t [facility] [address] [place] [address], documented in this encounter Visit Diagnoses Diagnosis Unspecified atrial fibrillation (CMS/HCC V24, CMS/HCC V28) documented in this encounter Additional Health Concerns Infection Onset Date Last Indicated Resolved Time Tuberculosis Rule-Out 01/12/2025 01/12/20252024 7:05 PM EDT documented as of this encounter Care Teams Hammersmith Helper Relationship Specialty Start Date End Date Le Recinos DO [address] [facility] [place] [address] PCP - General 04/28/24 documented as of this encounter
--- OUTSIDE RECORDS SUMMARY | 2025-03-29 16:12 | XMS_ITS | Encounter Summary ---
Author Organization [facility] Address [address] [place] [address] Care Team Providers Care Wastewater Treatment Plant Chemist Name Role Phone JorjeLe Primary Care Provider [phone] Encounter Details Date Type Department Care Team (Late st Contact Info) Description 10/17/2024 Lab Requisition [facility] - Main Lab [address] [place] [address] Bernadine Florez MD [address] [place], [place] [phone] Unspecified atrial fibrillation (CMS/HCC V24, CMS/HCC V28) [...] - Warfarin Visit Coumadin Clinic - [facility] [address] [facility] [place] [phone] 06/03/2025 2:45 PM EST Office Visit Internal Medicine - [facility] [address] [facility] [place] [phone] Aide Linares, LEWIS [address] [place], [place] documented as of this encounter Procedures Procedure Name Priority Date/Time Associated Diagnosis Comments PROTHROMBIN TIME WITH INR Routine 10/18/2024 6:59 AM EDT Unspecified atrial fibrillation (CMS/HCC) documented in this encounter Results * (ABNORMAL) Prothrombin time with INR (10/18/2024 6:59 AM EDT) Protime 24.7(H) 10.6 - 13.9 sec LAB COAGULATION METHOD 10/18/2024 10:43 AM EDT [facility] INR 2.0 LAB COAGULATION METHOD 10/18/2024 10:43 AM EDT [facility] Blood Venous blood specimen / Unknown Venipuncture / Unknown 10/18/2024 6:59 AM EDT 10/18/2024 9:34 AM EDT us Bernadine Florez MD LAB BLOOD ORDERABLES Final Resul t [facility] [address] [place] [address], documented in this encounter Visit Diagnoses Diagnosis Unspecified atrial fibrillation (CMS/HCC V24, CMS/HCC V28) documented in this encounter Additional Health Concerns Infection Onset Date Last Indicated Resolved Time Tuberculosis Rule-Out 01/12/2025 01/12/20252024 7:05 PM EDT documented as of this encounter Care Teams Wastewater Treatment Plant Chemist Relationship Specialty Start Date End Date Le Recinos DO [address] [facility] [place] [address] PCP - General 04/28/24 documented as of this encounter
--- OUTSIDE RECORDS SUMMARY | 2025-03-29 16:12 | XMS_ITS | Encounter Summary ---
Author Organization [facility] Address [address] [place] [address] Care Team Providers Care Bread Wrapper Operator Name Role Phone JorjeLe Primary Care Provider [phone] Encounter Details Date Type Department Care Team (Late st Contact Info) Description 10/23/2024 Lab Requisition [facility] - Main Lab [address] [place] [address] Bernadine Florez MD [address] [place], [place] [phone] Unspecified atrial fibrillation (CMS/HCC V24, CMS/HCC V28) [...] Anticoagulation - Warfarin Visit Coumadin Clinic - [facility] [address] [facility] [place] [phone] 06/03/2025 2:45 PM EST Office Visit Internal Medicine - [facility] [address] [facility] [place] [phone] Aide Linares, LEWIS [address] [place], [place] documented as of this encounter Procedures Procedure Name Priority Date/Time Associated Diagnosis Comments PROTHROMBIN TIME WITH INR Routine 10/25/2024 6:52 AM EDT Unspecified atrial fibrillation (CMS/HCC) documented in this encounter Results * (ABNORMAL) Prothrombin time with INR (10/25/2024 6:52 AM EDT) Protime 27.0(H) 10.6 - 13.9 sec LAB COAGULATION METHOD 10/25/2024 9:52 AM EDT [facility] INR 2.2 LAB COAGULATION METHOD 10/25/2024 9:52 AM EDT [facility] Blood Venous blood specimen / Unknown Venipuncture / Unknown 10/25/2024 6:52 AM EDT 10/25/2024 9:17 AM EDT us Bernadine Florez MD LAB BLOOD ORDERABLES Final Resul t [facility] [address] [place] [address], documented in this encounter Visit Diagnoses Diagnosis Unspecified atrial fibrillation (CMS/HCC V24, CMS/HCC V28) documented in this encounter Additional Health Concerns Infection Onset Date Last Indicated Resolved Time Tuberculosis Rule-Out 01/12/2025 01/12/20252024 7:05 PM EDT documented as of this encounter Care Teams Bread Wrapper Operator Relationship Specialty Start Date End Date Le Recinos DO [address] [facility] [place] [address] PCP - General 04/28/24 documented as of this encounter
--- OUTSIDE RECORDS SUMMARY | 2025-03-29 16:12 | XMS_ITS | Encounter Summary ---
Author Organization [facility] Address [address] [place] [address] Care Team Providers Care Electrification Adviser Name Role Phone JorjeLe Primary Care Provider [phone] Encounter Details Date Type Department Care Team (Late st Contact Info) Description 10/06/2024 Lab Requisition [facility] - Main Lab [address] [facility] [address] [facility] [place] [address] Bernadine Florez MD [address] [place], [place] [phone] Unspecified atrial fibrillation (CMS/HCC V24, CMS/HCC V28) [...] Warfarin Visit Coumadin Clinic - [facility] [address] [facility] [place] [phone] 06/03/2025 2:45 PM EST Office Visit Internal Medicine - [facility] [address] [facility] [place] [phone] Aide Linares, LEWIS [address] [place], [place] documented as of this encounter Procedures Procedure Name Priority Date/Time Associated Diagnosis Comments PROTHROMBIN TIME WITH INR Routine 10/07/2024 6:15 AM EDT Unspecified atrial fibrillation (CMS/HCC) documented in this encounter Results * (ABNORMAL) Prothrombin time with INR (10/07/2024 6:15 AM EDT) Protime 43.1(H) 10.6 - 13.9 sec LAB COAGULATION METHOD 10/07/2024 10:22 AM EDT [facility] INR 3.5 LAB COAGULATION METHOD 10/07/2024 10:22 AM EDT [facility] Blood Venous blood specimen / Unknown Venipuncture / Unknown 10/07/2024 6:15 AM EDT 10/07/2024 8:47 AM EDT us Bernadine Florez MD LAB BLOOD ORDERABLES Final Resul t [facility] [address] [place] [address], documented in this encounter Visit Diagnoses Diagnosis Unspecified atrial fibrillation (CMS/HCC V24, CMS/HCC V28) documented in this encounter Additional Health Concerns Infection Onset Date Last Indicated Resolved Time Tuberculosis Rule-Out 01/12/2025 01/12/20252024 7:05 PM EDT documented as of this encounter Care Teams Electrification Adviser Relationship Specialty Start Date End Date Le Recinos DO [address] [facility] [place] [address] PCP - General 04/28/24 documented as of this encounter
--- OUTSIDE RECORDS SUMMARY | 2025-03-29 16:12 | XMS_ITS | Encounter Summary ---
Author Organization [facility] Address [address] [place] [address] Care Team Providers Care Fish Processor Name Role Phone JorjeLe Primary Care Provider [phone] Encounter Details Date Type Department Care Team (Late st Contact Info) Description 10/27/2024 Lab Requisition [facility] - Main Lab [address] [place] [address] Bernadine Florez MD [address] [place], [place] [phone] Unspecified atrial fibrillation (CMS/HCC V24, CMS/HCC V28) [...] Visit Coumadin Clinic - [facility] [address] [facility] [place] [phone] 06/03/2025 2:45 PM EST Office Visit Internal Medicine - [facility] [address] [facility] [place] [phone] Aide Linares, LEWIS [address] [place], [place] documented as of this encounter Procedures Procedure Name Priority Date/Time Associated Diagnosis Comments PROTHROMBIN TIME WITH INR Routine 10/28/2024 5:32 AM EDT Unspecified atrial fibrillation (CMS/HCC) documented in this encounter Results * (ABNORMAL) Prothrombin time with INR (10/28/2024 5:32 AM EDT) Protime 25.5(H) 10.6 - 13.9 sec LAB COAGULATION METHOD 10/28/2024 10:39 AM EDT [facility] INR 2.1 LAB COAGULATION METHOD 10/28/2024 10:39 AM EDT [facility] Blood Venous blood specimen / Unknown Venipuncture / Unknown 10/28/2024 5:32 AM EDT 10/28/2024 9:27 AM EDT us Bernadine Florez MD LAB BLOOD ORDERABLES Final Resul t [facility] [address] [place] [address], documented in this encounter Visit Diagnoses Diagnosis Unspecified atrial fibrillation (CMS/HCC V24, CMS/HCC V28) documented in this encounter Additional Health Concerns Infection Onset Date Last Indicated Resolved Time Tuberculosis Rule-Out 01/12/2025 01/12/20252024 7:05 PM EDT documented as of this encounter Care Teams Fish Processor Relationship Specialty Start Date End Date Le Recinos DO [address] [facility] [place] [address] PCP - General 04/28/24 documented as of this encounter
--- OUTSIDE RECORDS SUMMARY | 2025-03-29 16:12 | XMS_ITS | Clinical Summary ---
Author Organization [place] [id number] [address] Formerly [facility], later [facility] Building Address [address] [place] [phone] Phone Care Team Providers Care Chair Pad Maker Name Role Phone Laurie Recinosmana Primary Care Provider [phone] Allergies No known active allergies Medications warfarin [...] Z-Savage. Squamous cell carcinoma lung , left ([facility] V24, [facility] V28) 06/30/2023 Overview (05/31/2024): 04/30/2023 status [...] that I will have him see his oven tender for a risk assessment as well as a public employment mediator to give recommendations around anticoagulation around surgery. He certainly will have to stop his Coumadin 5 days prior to operation but the question of a bridge or what to bridge with. Aortic root dilatation (CMS/HCC V24) 01/24/2023 Coronary artery disease invo lving [place] coronary artery of [place] heart without angina pectoris 06/20/2022 Mixed hyperlipidemia 06/20/2022 Primary hypertension 04/23/2022 Coronary artery disease due to calcified coronar y lesion 03/18/2022 Lab test positive for detection of COVID-19 viru s 07/11/2021 Overview (05/31/2024): 07/03/21, [facility] 07/03/21 Thoracic aortic aneurysm (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 V24) 02/03/2017 Hematuria 02/03/2017 Overview (05/31/2024): Did not schedule urology appt 06/06 COPD (chronic obstructive pu lmonary disease) ([facility] V24, [facility] V28) 02/16/2016 Depression 08/18/2015 Overview (05/31/2024): [facility] Hyperlipidemia with target LDL less than 130 10/2012 Benign neoplasm of colon 05/13/2011 Overview (05/31/2024): 10 mm polyp 2002. Neg CN 2004. Small polyps x 2 at CN 05/13/2011: Pathology report: Tubular adenomas x 2. 2 polyps 05/09; repeat due 2024 Factor V Leiden mutation (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 V24, [facility] V28) 10/03/2010 Heartburn 10/10/2009 Tobacco use disorder 08/25/2008 Cervical disc displacement 03/09/2008 Migraine with aura 07/05/2005 Overview (05/31/2024): Onset in teens, better as an adult. Resolved Problems Problem Noted Date Diagnosed Date Resolved Date SBO (small bowel obstruction ) ([facility] V24, [facility] V28) 08/29/2024 09/16/2024 Encounters Date Type Department Care Team Description 03/25/2025 Anticoagulation - [facility] [phone] Kiara Anderson LPN Deep vein thrombosis (DVT) of distal vein of left lower extremity, unspecified chronicity ([facility] V24, [facility] V28) (Primary Dx); Factor V Leiden mutation ([facility] [place] [place] V24) 03/22/2025 Telephone Coumadin [facility] [address] [place] [phone] Divina Lozoya LPN 03/17/2025 1:30 PM EDT Anticoagulation - Warfarin Visit Coumadin [address] [phone] Deep vein thrombosis (DVT) of distal vein of left lower extremity, unspecified chronicity ([facility] V24, [facility] V28) (Primary Dx); Factor V Leiden mutation ([facility] [place] V24) 02/24/2025 1:45 PM EDT Anticoagulation - Warfarin Visit Coumadin [address] [phone] Deep vein thrombosis (DVT) of distal vein of left lower extremity, unspecified chronicity ([facility] V24, [facility] V28) (Primary Dx); Factor V Leiden mutation ([facility] [place] V24) 02/10/2025 2:15 PM EDT Office Visit Internal Medicine - [address] [phone] Le Recinos DO Primary hypertension (Primary Dx); Mixed hyperlipidemia; Chronic obstructive pulmonary disease, unspecified COPD type ([facility] V24, [facility] V28); Heartburn; Factor V Leiden mutation ([facility] V24); Chronic midline back pain, unspecified back location; Depression, unspecified depression type 02/10/2025 1:45 PM EDT Anticoagulation - Warfarin Visit Coumadin Clinic [address] [phone] Deep vein thrombosis (DVT) of distal vein of left lower extremity, unspecified chronicity (CMS/HCC V24, CMS/HCC V28) (Primary Dx); Factor V Leiden mutation ([facility]/HCC V24) 02/02/2025 1:00 PM EDT Office Visit Thoracic Surgery - [place] [address] [phone] Mariluz Ngo MD Pulmonary nodule (Primary Dx); Squamous cell carcinoma lung, left (CMS/HCC V24, CMS/HCC V28) 02/01/2025 10:36 AM EDT - 02/01/2025 11:59 PM EDT Hospital [facility] Pulmonary [address] [place] [phone] Pulmonary nodule; SOB (shortness of breath) Discharge Disposition: Home or Self Care 02/01/2025 Telephone Pulmonology [address] [phone] Collette Avalos MD 01/25/2025 2:00 PM EDT Office Visit Pulmonology [facility] [address] [phone] Collette Avalos MD Pulmonary nodule (Primary Dx); SOB (shortness of breath) 01/25/2025 1:15 PM EDT Anticoagulation - Warfarin Visit Coumadin [facility] [address] [place] [phone] Deep vein thrombosis (DVT) of distal vein of left lower extremity, unspecified chronicity (CMS/HCC V24, CMS/HCC V28) (Primary Dx); Factor V Leiden mutation ([facility]/HCC V24) 01/17/2025 1:00 PM EDT Anticoagulation - Warfarin Visit [facility]in Clinic [address] [phone] Deep vein thrombosis (DVT) of distal vein of left lower extremity, unspecified chronicity (CMS/HCC V24, CMS/HCC V28) (Primary Dx); Factor V Leiden mutation (CMS/HCC V24) 01/14/2025 Anticoagulation - Warfarin Visit Coumadin Clinic [facility] [address] [place] [phone] Diivna Lozoya LPN Deep vein thrombosis (DVT) of distal vein of left lower extremity, unspecified chronicity (CMS/HCC V24, CMS/HCC V28) (Primary Dx); Factor V Leiden mutation (CMS/HCC V24) 01/12/2025 2:17 PM EDT Anesthesia Event [facility] [address] [place] [phone] Aide Banda MD Madonick, Maria M, CRNA 01/12/2025 12:35 PM EDT - 01/12/2025 3:15 PM EDT Surgery [facility] OR [address] [place] [address], [place] [phone] Collette Avalos MD FLEXIBLE/ ROBOTIC ASSISTED BRONCHOSCOPY W. LLL FNA, TBBX, CRYO, BAL FOR CYTO AND CULTURE, 11R, 4R, LEVEL 7, 11L, FIDUCIAL PLACEMENT LLL [04774 (CPT )] 01/12/2025 10:20 AM EDT - 01/12/2025 11:59 PM EDT [facility] [address] [place] [phone] Pain Discharge Disposition: Home or Self Care 01/12/2025 10:15 AM EDT - 01/12/2025 5:37 PM EDT Hospital Encounter [facility] [place] [address] [place] [phone] Collette Avalos MD Lung nodule Discharge Disposition: Home or Self Care 01/10/2025 8:15 AM EDT Anticoagulation - Warfarin Visit Coumadin Clinic - [facility] [address] [facility] [place] [phone] Deep vein thrombosis (DVT) of distal vein of left lower extremity, unspecified chronicity (CMS/HCC V24, CMS/HCC V28) (Primary Dx); Factor V Leiden mutation ([facility]/HCC V24) from Last 3 Months Immunizations [...] polyps x2: Tubular adenoma x2. APPENDECTOMY PROCEDURE: NM APPENDECTOMY OTHER SURGICAL HISTORY 04/30/2023 Left PROCEDURE: NM THORACOSCOPY W/SEGMENTECTOMY; COMMENT: MARCIAL wedge w/ segmentectomy [...] COMMENT: Actinic keratosis 03/08 forehead 03/28 left amish COPD (chronic obstructive pu lmonary disease) ([facility] V24, [facility] V28) DX:COPD (chronic o bstructive pulmonary disease) ([facility]) Lung cancer ([facility] V24[facility] V28) status post resection Hypertension Hyperlipidemia Factor V Leiden ([facility] [place] V24) History of DVT (deep vein thrombosis) [...] Anticoagulation - Warfarin Visit Coumadin Clinic - [address] [phone] 06/03/2025 2:45 PM EST Office Visit Internal Medicine - [facility] [address] [place] [phone] Aide Linares, LEWIS [address] [place] [address] Health Maintenance Due Date Last Done Comments [...] this topic Medical Devices Implanted Type Area Maintenance Operator Device Identifier Shelf Expiration Date Model / Serial / Lot Tray Rad Cath 1lum Poly 4f - [id number] Implanted:Qty: 1 on 09/08/2024 by Savanah Go MD at [facility]/Chloe pheral Catheters and Ports Right: Arm BD VASCULAR ACCESS DEVICES FKA BARD ACCESS [id number] 06/19/2026 [id number] / / [id number] Marker Cobra Superlock - Sn/A - [id number] Implanted:Qty: 1 on 01/12/2025 by Collette Avalos MD at [facility] Implants Left: Lung [employer] [id number] 11/01/2028 [id number] / N/A / [id number] Description:Left lower lobe Procedures Procedure Name Priority [...] Routine 01/12/2025 2:34 PM EDT Lung nodule NM BRONCHOSCOPY RIGID/FLEXIBLE W/EBUS >=3 MEDIASTINAL/HILAR LYMPH NODES 01/12/2025 2:17 PM EDT Lung nodule NM BRONCHOSCOPY RIGID/FLEXIBLE W/TRANSBRONCHIAL LUNG BIOPSY(S) SINGLE LOBE 01/12/2025 2:17 PM EDT Lung nodule NM BRONCHOSCOPY RIGID/FLEXIBLE COMPUTER ASSISTED IMAGE GUIDED NAVIGATION [...] LAB COAGULATION METHOD 03/25/2025 11:36 AM EDT [facility] INR 1.5 LAB COAGULATION METHOD 03/25/2025 11:36 AM EDT [facility] Blood Venous blood specimen / Unknown Venipuncture / Unknown 03/25/2025 10:03 AM EDT 03/25/2025 10:04 AM EDT us Shahrzad TREJO LAB BLOOD ORDERABLES Final R esult [facility] [address] [place] [address], [place] [phone] * POC Protime INR Blood (03/17/2025 2:47 PM EDT) Only the most recent of6 resultswithin the time period is included. Lot Number INR POC 2.1 Prothrombin Time POC Exp Date Blood 03/17/2025 2:47 PM EDT Wil Schafer MD POINT OF CARE TEST ENTER/ EDIT ORDERABLES Final Result * Pulmonary function testing: Carbon Monoxide Diffusing Capacity, Spirometry with Bronchodilator, Nitrogen Wash Out (02/01/2025 11:34 AM EDT) Narrative Toshia Hernandez MD - 02/11/2025 3:17 PM EDT Table formatting from the original result was not included. Images from the original result were not included. [facility] Lab [address] [place] [phone] Pulmonary Functions Report Date of service: 02/01/25 [...] which clinical correlation is recommended. us Collette Avalos MD PFT ORDERABLES Final Resu [...] on 01/12/2025 4:55 PM. Workstation Name - [id number] -------- FINAL REPORT -------- Dictated By: Santy Lorenzana Dictated Date: 01/12/2025 16:41 ET Assigned Physician: Santy Lorenzana Reviewed and Electronically Signed By: Santy Lorenzana Signed Date: 01/12/2025 16:55 ET Workstation ID: [id number] Transcribed By: Self Edit Transcribed Date: 01/12/2025 [...] Lorenzana on 01/12/2025 4:55 PM.Workstation Name - [id number] -------- FINAL REPORT -------- Dictated By: Santy Lorenzana Dictated Date: 01/12/2025 16:41 ET Assigned Physician: Santy Lorenzana Reviewed and Electronically Signed By: Santy Lorenzana Signed Date: 01/12/2025 16:55 ET Workstation ID: [id number] Transcribed By: Self Edit Transcribed Date: 01/12/2025 [...] at 3 days 01/15/2025 10:07 AM EDT [facility] Gram Stain Result Many WBCs present 01/15/2025 10:07 AM EDT [facility] Gram Stain Result No organisms seen 01/15/2025 10:07 AM EDT [facility] Wash Structure of lower lobe of left lung / Unknown 01/12/2025 2:54 PM EDT 01/12/2025 3:53 PM EDT Comment:No concern for TB Collette Avalos MD LAB MICROBIOLOGY - GENERAL ORDERABLES Final Result Performing Organization Address City/[facility]/ZIP Co de Phone Number [facility] [address] [place] [address], [place] [phone] * Culture AFB and smear (01/12/2025 2:54 PM EDT) Culture AFB No AFB isolated after 6 weeks. 02/24/2025 9:42 AM EDT [facility] AFB Stain No Acid fast bacilli seen 02/24/2025 9:42 AM EDT [facility] Wash Structure of lower lobe of left lung / Unknown 01/12/2025 2:54 PM EDT 01/12/2025 3:53 PM EDT Comment:No concern for TB Collette Avalos MD LAB MICROBIOLOGY - GENERAL ORDERABLES Final Result [facility] [address] [place] [address], [place] [phone] * Culture fungus, miscellaneous source (01/12/2025 2:54 PM EDT) Culture, Fungus No Yeast or Mold isolated after 4 Weeks. 02/10/2025 12:01 AM EDT [facility] Wash Structure of lower lobe of left lung / Unknown 01/12/2025 2:54 PM EDT 01/12/2025 3:53 PM EDT Comment:No concern for TB us Collette Avalos MD LAB MICROBIOLOGY - GENERAL ORDERABLES Final Result [facility] [address] [place] [address], [place] [phone] * TH AN ENDOTRACHEAL(NO CHARGE) (01/12/2025 2:40 PM EDT) Narrative Jocelyne Negron CRNA - 01/12/2025 2:40 PM EDT Jocelyne Negron CRNA 01/12/2025 2:41 PM General Information and Staff Patient location during procedure: OR Resident/INTERNAL COMBUSTION ENGINE INSPECTOR: Jocelyne Negron CRNA Performed: resident/BOY/CAA Performed by: [...] the consensus opinion. 01/14/2025 4:29 PM EDT [facility] Gross Description A. Lung, [...] 01/13/25 (5 pieces) 01/14/2025 4:29 PM EDT [facility] Disclaimer The technical components of this case were performed at [address] [id number] 01/14/2025 4:29 PM EDT [facility] Tissue Structure of lower lobe of left lung / Unknown 01/12/2025 2:36 PM EDT 01/13/2025 7:14 AM EDT us Collette Avalos MD LAB PATHOLOGY ORDERABLES F inal Result [facility] [address] [place] [address], * Non-gynecologic cytology (01/12/2025 2:34 PM EDT) [...] lymph node sampling. Refer to surgical case [id number]. 01/14/2025 4:29 PM EDT [facility] Specimen A Adequacy Satisfactory for evaluation 01/14/2025 4:29 PM EDT [facility] Specimen B Adequacy Satisfactory for evaluation 01/14/2025 4:29 PM EDT [facility] Specimen C Adequacy Satisfactory for evaluation 01/14/2025 4:29 PM T [facility] Specimen D Adequacy Satisfactory for evaluation 01/14/2025 4:29 PM [facility] Specimen E Adequacy Satisfactory for evaluation 01/14/2025 4:29 PM T [facility] Specimen F Adequacy Satisfactory for evaluation 01/14/2025 4:29 PM T [facility] Clinical Information IN CYTO 01/14/2025 4:29 PM EDT [facility] Gross Description A. Lung, [...] and Cell Block. 01/14/2025 4:29 PM EDT [facility] Disclaimer The technical components [place] [address] CLIA # [id number] 01/14/2025 4:29 PM EDT [facility] Fine Needle Aspirate Structure [...] MD LAB CYTOLOGY ORDERABLES Fi nal Result [facility] [address] [place] [address], [place] [phone] * (ABNORMAL) Basic metabolic panel (12/20/2024 1:31 PM EDT) Sodium 138 133 - 145 mmol/L LAB CHEMISTRY METHOD 12/20/2024 4:33 PM [facility] Potassium 3.9 3.5 - 5.5 mmol/L LAB CHEMISTRY METHOD 12/20/2024 4:33 PM [facility] Chloride 104 96 - 110 mmol/L LAB CHEMISTRY METHOD 12/20/2024 4:33 PM [facility] CO2 27 21 - 32 mmol/L LAB CHEMISTRY METHOD 12/20/2024 4:33 PM [facility] Anion Gap 7 3 - 11 LAB CHEMISTRY METHOD 12/20/2024 4:33 PM [facility] Glucose 107(H) 70 - 100 mg/dL LAB CHEMISTRY METHOD 12/20/2024 4:33 PM [facility] BUN 11 5 - 25 mg/dL LAB CHEMISTRY METHOD 12/20/2024 4:33 PM [facility] Creatinine 0.81 0.70 - 1.30 mg/dL LAB CHEMISTRY METHOD 12/20/2024 4:33 PM [facility] eGFR 93 >=60 mL/min/1. 73m2 LAB CHEMISTRY METHOD 12/20/2024 4:33 PM [facility] Comment:Calculation based on the Chronic Kidney Disease Epidemiology Collaboration (CKD-EPI) equation refit without adjustment for race. BUN/Creatinine Ratio 13.6 LAB CHEMISTRY METHOD 12/20/2024 4:33 PM [facility] Calcium 9.1 8.5 - 10.5 mg/dL LAB CHEMISTRY METHOD 12/20/2024 4:33 PM [facility] Blood Venous blood specimen / Unknown Venipuncture / Unknown 12/20/2024 1:31 PM EDT 12/20/2024 1:35 PM EDT us Collette Avalos MD LAB BLOOD ORDERABLES Final Result [facility] [address] [place] [address], [place] [phone] * (ABNORMAL) Lipid panel with reflex to direct LDL (07/28/2024 3:53 PM EST) Cholesterol 162 0 - 200 mg/dL LAB CHEMISTRY METHOD 07/28/2024 6:57 PM EST [facility] Triglycerides 212(H) 0 - 150 mg/dL LAB CHEMISTRY METHOD 07/28/2024 6:57 PM EST [facility] HDL 50 >=40 mg/dL LAB CHEMISTRY METHOD 07/28/2024 6:57 PM EST [facility] LDL Calculated 70 0 - 100 mg/dL LAB CHEMISTRY METHOD 07/28/2024 6:57 PM EST [facility] VLDL Cholesterol Hermel[place] 42.4 mg/dL LAB CHEMISTRY METHOD 07/28/2024 6:57 PM EST [facility] Non HDL Chol. (LDL+VLDL) 112 <145 mg/dL LAB CHEMISTRY METHOD 07/28/2024 6:57 PM EST [facility] Chol/HDL Ratio 3.2 0.0 - 4.4 LAB CHEMISTRY METHOD 07/28/2024 6:[address] [facility] Blood Venous blood specimen / Unknown Venipuncture / Unknown 07/28/2024 3:53 PM EST 07/28/2024 3:53 PM EST us Ca uDrán NP LAB BLOOD ORDERABLES Final Resul t Performing Organization Address City/[facility]/ZIP Co de Phone Number [facility] [address] [place] [address], [place] [phone] * CT LUNG SCREENING LOW DOSE (03/17/2023 3:36 PM EDT) Anatomical Region Laterality Modality Computed Tomogra phy 03/17/2023 1:40 PM EDT Narrative 03/17/2023 3:36 PM EDT [facility] Diagnostic Imaging Department [address] [place] [address] Patient: YURIY JOY Lala /Age/Sex: 1950 - 72 - M Unit#: [id number] Location/Status: SPDICATLS/[facility] CLI Mnemonic/Ordering Site: [facility] Ordering Physician: MARILUZ NGO MD CT Lung [...] Procedure Note Jame Zamora MD - 08/26/2023 [facility] Diagnostic Imaging Department [address] [place] [address] Patient: YURIY JOY /Age/Sex: 1950 - 72 - M Unit#: [id number] Location/Status: SPDICATLS/REG CLI Mnemonic/Ordering Site: [facility] Ordering Physician: MARILUZ NGO MD CT Lung [...] no interpretation Anatomical Region Laterality Modality Other [facility] Provider HEALTH MAINTENANCE Final Result * Colonoscopy (05/01/2020) Colonoscopy abstracted, no interpretation Anatomical Region Laterality Modality Other [facility] Provider HEALTH MAINTENANCE Final Result * Hepatitis C Screening (01/25/2013) Hepatitis C Screening abstracted [facility] Provider HEALTH MAINTENANCE Final Result from Last 3 Months or Most Recently Relevant to Health Maintenance Insurance [employer] [place] MEDICARE ADVANTAGE Advance Directives Documents on File Type Date Recorded Patient Discharge Door Operator Expl anation Health Care Decision (hx) 06/11/2023 [...] Relationship Healthcare Agent Relationship Communication Britni Joy [facility] Health Care Agent Aide Gamez Daughter Health Care Agent Care Teams Chair Pad Maker Relationship Specialty Start Date End Date Le Recinos DO [address] [place] [id number] PCP - General 04/28/24
--- OUTSIDE RECORDS SUMMARY | 2025-03-29 16:12 | XMS_ITS | Encounter Summary ---
Author Organization [facility] Address [address] [place] [address] Care Team Providers Care Escapement Maker Name Role Phone JorjeLe Primary Care Provider [phone] Encounter Details Date Type Department Care Team (Late st Contact Info) Description 10/10/2024 Lab Requisition [facility] - Main Lab [address] [place] [phone] Bernadine Florez MD [address] [place], [place] [id number] Other malaise; Unspecified atrial fibrillation (CMS/HCC V24, [...] Warfarin Visit Coumadin Clinic - [facility] [address] [facility], [place] [address] 06/03/2025 2:45 PM EST Office Visit Internal Medicine - [facility] [address] [place], [place] [phone] Aide Linares, LEWIS [address] [place], [place] documented as of this encounter Procedures [...] LAB COAGULATION METHOD 10/11/2024 11:33 AM EDT [facility] INR 1.4 LAB COAGULATION METHOD 10/11/2024 11:33 AM EDT [facility] Blood Venous blood specimen / Unknown Venipuncture / Unknown 10/11/2024 6:48 AM EDT 10/11/2024 10:24 AM EDT Bernadine Florez MD LAB BLOOD ORDERABLES Final Resul t [facility] [address] [place] [address], * (ABNORMAL) Basic metabolic panel (10/11/2024 6:48 AM EDT) Sodium 139 133 - 145 mmol/L LAB CHEMISTRY METHOD 10/11/2024 12:02 PM [facility] Potassium 4.0 3.5 - 5.5 mmol/L LAB CHEMISTRY METHOD 10/11/2024 12:02 PM [facility] Chloride 105 96 - 110 mmol/L LAB CHEMISTRY METHOD 10/11/2024 12:02 PM [facility] CO2 24 21 - 32 mmol/L LAB CHEMISTRY METHOD 10/11/2024 12:02 PM [facility] Anion Gap 10 3 - 11 LAB CHEMISTRY METHOD 10/11/2024 12:02 PM [facility] Glucose 100 70 - 100 mg/dL LAB CHEMISTRY METHOD 10/11/2024 12:02 PM [facility] BUN 18 5 - 25 mg/dL LAB CHEMISTRY METHOD 10/11/2024 12:02 PM [facility] Creatinine 0.68(L) 0.70 - 1.30 mg/dL LAB CHEMISTRY METHOD 10/11/2024 12:02 PM [facility] eGFR 98 >=60 mL/min/1. 73m2 LAB CHEMISTRY METHOD 10/11/2024 12:02 PM [facility] Comment:Calculation based on the Chronic Kidney Disease Epidemiology Collaboration (CKD-EPI) equation refit without adjustment for race. BUN/Creatinine Ratio 26.5 LAB CHEMISTRY METHOD 10/11/2024 12:02 PM [facility] Calcium 9.5 8.5 - 10.5 mg/dL LAB CHEMISTRY METHOD 10/11/2024 12:02 PM [facility] Blood Venous blood specimen / Unknown Venipuncture / Unknown 10/11/2024 6:48 AM EDT 10/11/2024 10:23 AM EDT Bernadine Florez MD LAB BLOOD ORDERABLES Final Resul t [facility] [address] [place] [address], * (ABNORMAL) Complete blood count (10/11/2024 6:48 AM EDT) WBC 5.7 4.8 - 10.8 K/mcL LAB HEMETOLOGY METHOD 10/11/2024 11:52 AM [facility] RBC 4.00(L) 4.50 - 5.50 M/mcL LAB HEMETOLOGY METHOD 10/11/2024 11:52 AM [facility] Hemoglobin 11.1(L) 13.5 - 17.5 g/dL LAB HEMETOLOGY METHOD 10/11/2024 11:52 AM [facility] Hematocrit 34.7(L) 42.0 - 54.0 % LAB HEMETOLOGY METHOD 10/11/2024 11:52 AM [facility] MCV 87.0 79.0 - 98.0 FL LAB HEMETOLOGY METHOD 10/11/2024 11:52 AM [facility] MCH 27.8 27.0 - 32.0 pcg LAB HEMETOLOGY METHOD 10/11/2024 11:52 AM [facility] MCHC 32.0 32.0 - 37.0 g/dL LAB HEMETOLOGY METHOD 10/11/2024 11:52 AM [facility] RDW 13.7 11.0 - 15.0 % LAB HEMETOLOGY METHOD 10/11/2024 11:52 AM EDT [facility] Platelets 233 130 - 400 K/mcL LAB HEMETOLOGY METHOD 10/11/2024 11:52 AM EDT [facility] MPV 10.0 7.0 - 11.0 FL LAB HEMETOLOGY METHOD 10/11/2024 11:52 AM EDT [facility] NRBC 0.0 <1.0 % LAB HEMETOLOGY METHOD 10/11/2024 11:52 AM EDT [facility] NRBC Absolute 0.00 <0.10 K/mcL LAB HEMETOLOGY METHOD 10/11/2024 11:52 AM EDT [facility] Blood Venous blood specimen / Unknown Venipuncture / Unknown 10/11/2024 6:48 AM EDT 10/11/2024 10:23 AM EDT us Bernadine Florez MD LAB BLOOD ORDERABLES Final Resul t [facility] [address] [place] [address], documented in this encounter Visit Diagnoses Diagnosis Other malaise Unspecified atrial fibrillation (CMS/HCC V24, CMS/HCC V28) documented in this encounter Additional Health Concerns Infection Onset Date Last Indicated Resolved Time Tuberculosis Rule-Out 01/12/2025 01/12/20252024 7:05 PM EDT documented as of this encounter Care Teams Escapement Maker Relationship Specialty Start Date End Date Le Recinos DO [address] [place] [address] PCP - General 04/28/24 documented as of this encounter
== END 2025-03-29 14:30 | disposition home or self-care (01) ==
LOC: HO.PMCPRC 13:41
PROVIDERS: Visit Provider Anesthesiology
DX: M47.816 Spondylosis without myelopathy or radiculopathy, lumbar region (principal)
CPT/HCPCS: 64493; 64494

== ENCOUNTER 2025-04-07 12:35 | Outpatient (REF) | payer BC, SELFPAY ==
--- NOTE | ~2025-04-07 | MR_ITS ---
EXAMINATION: MR LUMBAR SPINE WITHOUT CONTRAST CLINICAL INFORMATION: Wedge-shaped compression, L1 vertebra. COMPARISON: None available. TECHNIQUE: MRI of the lumbar spine was obtained using routine sequences without contrast. FINDINGS: Last rib-bearing vertebra labeled T12. Superior endplate compression deformity without bone marrow STIR signal abnormality, representing 60% with a 3 mm retropulsion upon central canal. Superior endplate compression deformity without bone marrow STIR signal abnormality, representing 40-50% volume loss without retropulsion at L2. Superior endplate compression deformity without bone marrow STIR signal abnormality, representing 30-40% volume loss without retropulsion at L3 vertebra. Superior endplate compression deformity without bone marrow STIR signal abnormality, representing 20% volume loss at L4 vertebra without retropulsion. Superior endplate compression deformity without bone marrow STIR signal abnormality, representing 50% volume loss at L5. No retropulsion. Superior endplate compression deformity, without bone marrow STIR signal abnormality, representing 20% volume loss at T12. No retropulsion Bone marrow inhomogeneity. No bone marrow STIR signal abnormality. Conus medullaris ends at pedicle of L1 with normal signal. T11-12: No disc herniation. No central spinal canal or neuroforamina stenosis. T12-L1: 3 mm retropulsion. Decreased AP diameter of the thecal sac. No compression upon conus medullaris. No neuroforamina stenosis. L1-2: Central marginal osteophyte formation. Reduced AP diameter of the thecal sac. No gross neuroforamina stenosis. L2-3: Broad-based disc bulging. Facet joint and ligamentum flavum hypertrophy. Reduced AP diameter of the thecal sac and bilateral neuroforamina narrowing. L3-4: Broad-based disc bulging. Facet joint and ligamentum flavum hypertrophy. Reduced AP diameter of the thecal sac and neuroforamina likely encroaching the neural limits. L4-5: Broad-based disc bulging. Facet joint and ligamentum flavum hypertrophy. Reduced AP diameter of the thecal sac and bilateral neuroforamina narrowing. L5-S1: Broad-based disc bulging. Facet joint hypertrophy. No central spinal canal stenosis. Bilateral neuroforamina narrowing without compressibility exiting nerve roots. No prevertebral compartment hematoma, mass or fluid collection.. MR/MR lumbar spine wo con IMPRESSION: Multilevel old likely osteoporotic compression fracture deformities throughout the vertebral bodies of the lumbar spine, the most pronounced at L1 resulting in 3 mm retropulsion. Central spinal canal stenosis at L3-4 and to a lesser extent L4-5, L2-3 on a multifactorial basis. Electronically signed by: Lalit Vazquez MD 04/07/2025 02:41 PM EDT RP
--- OUTSIDE RECORDS SUMMARY | 2025-04-07 14:45 | XMS_ITS | Encounter Summary ---
Author Organization [facility] Address [address] [place] [address] Care Team Providers Care Glassine Machine Tender Name Role Phone JorjeLe Primary Care Provider [phone] Encounter Details Date Type Department Care Team (Late st Contact Info) Description 09/23/2024 Lab Requisition [facility] - Main Lab [address] [place] [address] Bernadine Florez MD [address] [place], [place] [phone] Unspecified atrial fibrillation (CMS/HCC V24, CMS/HCC V28) [...] Care Team (Late st Contact Info) Description 04/08/2025 1:15 PM EDT Anticoagulation - Warfarin Visit Coumadin Clinic [facility] [address] [place] [phone] 06/03/2025 2:45 PM EST [facility] [address] [place] [address] Aide Linares, LEWIS [address] [place] [address] documented as of this encounter Procedures Procedure Name Priority Date/Time Associated Diagnosis Comments PROTHROMBIN TIME WITH INR Routine 09/24/2024 7:47 AM EST Unspecified atrial fibrillation (CMS/HCC) documented in this encounter Results * (ABNORMAL) Prothrombin time with INR (09/24/2024 7:47 AM EST) Protime 18.4(H) 10.6 - 13.9 sec LAB COAGULATION METHOD 09/24/2024 11:18 AM EST [facility] INR 1.5 LAB COAGULATION METHOD 09/24/2024 11:18 AM EST [facility] Blood Venous blood specimen / Unknown Venipuncture / Unknown 09/24/2024 7:47 AM EST 09/24/2024 10:33 AM EST us Bernadine Florez MD LAB BLOOD ORDERABLES Final Resul t [facility] [address] [place] [address], documented in this encounter Visit Diagnoses Diagnosis Unspecified atrial fibrillation (CMS/HCC V24, CMS/HCC V28) documented in this encounter Additional Health Concerns Infection Onset Date Last Indicated Resolved Time Tuberculosis Rule-Out 01/12/2025 01/12/20252024 7:05 PM EDT documented as of this encounter Care Teams Glassine Machine Tender Relationship Specialty Start Date End Date Le Recinos DO [address] [facility] [place] [address] PCP - General 04/28/24 documented as of this encounter
--- OUTSIDE RECORDS SUMMARY | 2025-04-07 14:45 | XMS_ITS | Encounter Summary ---
Author Organization [facility] Address [address] [place] [address] Care Team Providers Care Bruise Trimmer Name Role Phone JorjeLe Primary Care Provider [phone] Encounter Details Date Type Department Care Team (Late st Contact Info) Description 09/21/2024 Lab Requisition [facility] - Main Lab [address] [place] [address] Bernadine Florez MD [address] [place], [place] [phone] Unspecified atrial fibrillation (CMS/HCC V24, CMS/HCC V28) [...] EDT Anticoagulation - Warfarin Visit Coumadin Clinic [facility] [address] [place] [address] 06/03/2025 2:45 PM EST [facility] [address] [place] [address] Aide Linares, LEWIS [address] [place] [address] documented as of this encounter Visit Diagnoses Diagnosis Unspecified atrial fibrillation (CMS/HCC V24, CMS/HCC V28) documented in this encounter Additional Health Concerns Infection Onset Date Last Indicated Resolved Time Tuberculosis Rule-Out 01/12/2025 01/12/20252024 7:05 PM EDT documented as of this encounter Care Teams Bruise Trimmer Relationship Specialty Start Date End Date Le Recinos DO [address] [place] [address] PCP - General 04/28/24 documented as of this encounter
--- OUTSIDE RECORDS SUMMARY | 2025-04-07 14:45 | XMS_ITS | Encounter Summary ---
Author Organization [facility] Address [address] [place] [address] Care Team Providers Care Marsh Buggy Operator Name Role Phone JorjeLe Primary Care Provider [phone] Encounter Details Date Type Department Care Team (Late st Contact Info) Description 09/21/2024 Lab Requisition [facility] - Main Lab [address] [place] [address] Mukul Connolly PA [facility] [address] [facility] [address] [address] [place] [address] Unspecified atrial fibrillation (CMS/HCC V24, CMS/HCC V28) [...] EDT Anticoagulation - Warfarin Visit Coumadin Clinic [facility] [address] [place] [phone] 06/03/2025 2:45 PM EST Office Visit Internal Medicine - [facility] [address] [place] [address] Aide Linares, LEWIS [address] [place] [address] documented as of this encounter Procedures Procedure Name Priority Date/Time Associated Diagnosis Comments PROTHROMBIN TIME WITH INR Routine 09/21/2024 8:38 AM EST Unspecified atrial fibrillation (CMS/HCC) documented in this encounter Results * (ABNORMAL) Prothrombin time with INR (09/21/2024 8:38 AM EST) Protime 15.8(H) 10.6 - 13.9 sec LAB COAGULATION METHOD 09/21/2024 11:25 AM EST [facility] INR 1.3 LAB COAGULATION METHOD 09/21/2024 11:25 AM EST [facility] Blood Venous blood specimen / Unknown Venipuncture / Unknown 09/21/2024 8:38 AM EST 09/21/2024 10:37 AM EST us Mukul TREJO LAB BLOOD ORDERABLES Belinda l Result [facility] [address] [place] [address], documented in this encounter Visit Diagnoses Diagnosis Unspecified atrial fibrillation (CMS/HCC V24, CMS/HCC V28) documented in this encounter Additional Health Concerns Infection Onset Date Last Indicated Resolved Time Tuberculosis Rule-Out 01/12/2025 01/12/20252024 7:05 PM EDT documented as of this encounter Care Teams Marsh Buggy Operator Relationship Specialty Start Date End Date eL Recinos DO [address] [place] [address] PCP - General 04/28/24 documented as of this encounter
--- OUTSIDE RECORDS SUMMARY | 2025-04-07 14:45 | XMS_ITS | Encounter Summary ---
Author Organization [facility] Address [address] [place] [address] Care Team Providers Care Joint Creaser Name Role Phone JorjeLe Primary Care Provider [phone] Encounter Details Date Type Department Care Team (Late st Contact Info) Description 09/22/2024 Lab Requisition [facility] - Main Lab [address] [place] [address] Bernadine Florez MD [address] [place], [place] [phone] Unspecified atrial fibrillation (CMS/HCC V24, CMS/HCC V28) [...] EDT Anticoagulation - Warfarin Visit Coumadin Clinic [facility] [address] [place] [phone] 06/03/2025 2:45 PM EST [facility] [address] [place] [address] Aide Linares, LEWIS [address] [place] [address] documented as of this encounter Procedures Procedure Name Priority Date/Time Associated Diagnosis Comments PROTHROMBIN TIME WITH INR Routine 09/23/2024 6:12 AM EST Unspecified atrial fibrillation (CMS/HCC) documented in this encounter Results * (ABNORMAL) Prothrombin time with INR (09/23/2024 6:12 AM EST) Protime 17.7(H) 10.6 - 13.9 sec LAB COAGULATION METHOD 09/23/2024 9:33 AM EST [facility] INR 1.4 LAB COAGULATION METHOD 09/23/2024 9:33 AM EST [facility] Blood Venous blood specimen / Unknown Venipuncture / Unknown 09/23/2024 6:12 AM EST 09/23/2024 9:14 AM EST us Bernadine Florez MD LAB BLOOD ORDERABLES Final Resul t [facility] [address] [place] [address], documented in this encounter Visit Diagnoses Diagnosis Unspecified atrial fibrillation (CMS/HCC V24, CMS/HCC V28) documented in this encounter Additional Health Concerns Infection Onset Date Last Indicated Resolved Time Tuberculosis Rule-Out 01/12/2025 01/12/20252024 7:05 PM EDT documented as of this encounter Care Teams Joint Creaser Relationship Specialty Start Date End Date Le Recinos DO [address] [facility] [place] [address] PCP - General 04/28/24 documented as of this encounter
--- OUTSIDE RECORDS SUMMARY | 2025-04-07 14:45 | XMS_ITS | Encounter Summary ---
Author Organization [facility] Address [address] [place] [address] Care Team Providers Care Hand Brush Filler Name Role Phone JorjeLe Primary Care Provider [phone] Encounter Details Date Type Department Care Team (Late st Contact Info) Description 09/26/2024 Lab Requisition [facility] - Main Lab [address] [place] [address] Bernadine Florez MD [address] [place], [place] [phone] Other malaise; Unspecified atrial fibrillation (CMS/HCC V24, [...] EDT Anticoagulation - Warfarin Visit Coumadin Clinic [facility] [address] [place] [address] 06/03/2025 2:45 PM EST Office Visit Internal Medicine - [facility] [address] [place] [address] Aide Linares, LEWIS [address] [place] [address] documented as of this encounter Procedures Procedure [...] LAB COAGULATION METHOD 09/27/2024 9:[address] [facility] INR 3.0 LAB COAGULATION METHOD 09/27/2024 9:[address] [facility] Blood Venous blood specimen / Unknown Venipuncture / Unknown 09/27/2024 7:16 AM EDT 09/27/2024 9:30 AM EDT Bernadine Florez MD LAB BLOOD ORDERABLES Final Resul t [facility] [address] [place] [address], * Basic metabolic panel (09/27/2024 7:16 AM EDT) Sodium 136 133 - 145 mmol/L LAB CHEMISTRY METHOD 09/27/2024 10:08 AM [facility] Potassium 4.4 3.5 - 5.5 mmol/L LAB CHEMISTRY METHOD 09/27/2024 10:08 AM [facility] Chloride 103 96 - 110 mmol/L LAB CHEMISTRY METHOD 09/27/2024 10:08 AM [facility] CO2 25 21 - 32 mmol/L LAB CHEMISTRY METHOD 09/27/2024 10:08 AM [facility] Anion Gap 8 3 - 11 LAB CHEMISTRY METHOD 09/27/2024 10:08 AM [facility] Glucose 99 70 - 100 mg/dL LAB CHEMISTRY METHOD 09/27/2024 10:08 AM [facility] BUN 25 5 - 25 mg/dL LAB CHEMISTRY METHOD 09/27/2024 10:08 AM [facility] Creatinine 0.97 0.70 - 1.30 mg/dL LAB CHEMISTRY METHOD 09/27/2024 10:08 AM [facility] eGFR 82 >=60 mL/min/1. 73m2 LAB CHEMISTRY METHOD 09/27/2024 10:08 AM [facility] Comment:Calculation based on the Chronic Kidney Disease Epidemiology Collaboration (CKD-EPI) equation refit without adjustment for race. BUN/Creatinine Ratio 25.8 LAB CHEMISTRY METHOD 09/27/2024 10:08 AM [facility] Calcium 9.5 8.5 - 10.5 mg/dL LAB CHEMISTRY METHOD 09/27/2024 10:08 AM [facility] Blood Venous blood specimen / Unknown Venipuncture / Unknown 09/27/2024 7:16 AM EDT 09/27/2024 9:16 AM EDT Bernadine Florez MD LAB BLOOD ORDERABLES Final Resul t [facility] [address] [place] [address], * (ABNORMAL) Complete blood count (09/27/2024 7:16 AM EDT) [facility] WBC 6.6 4.8 - 10.8 K/mcL LAB HEMETOLOGY [facility] 4.20(L) 4.50 - 5.50 M/mcL LAB HEMETOLOGY METHOD 09/27/2024 9:39 AM [facility] Hemoglobin 11.9(L) 13.5 - 17.5 g/dL LAB HEMETOLOGY METHOD 09/27/2024 9:39 AM [facility] Hematocrit 38.0(L) 42.0 - 54.0 % LAB HEMETOLOGY METHOD 09/27/2024 9:39 AM [facility] MCV 90.3 79.0 - 98.0 FL LAB HEMETOLOGY METHOD 09/27/2024 9:39 AM [facility] MCH 28.3 27.0 - 32.0 pcg LAB HEMETOLOGY METHOD 09/27/2024 9:39 AM [facility] MCHC 31.3(L) 32.0 - 37.0 g/dL LAB HEMETOLOGY METHOD 09/27/2024 9:39 AM [facility] RDW 14.3 11.0 - 15.0 % LAB HEMETOLOGY METHOD 09/27/2024 9:39 AM [facility] Platelets 292 130 - 400 K/mcL LAB HEMETOLOGY METHOD 09/27/2024 9:[address] [facility] MPV 10.1 7.0 - 11.0 FL LAB HEMETOLOGY METHOD 09/27/2024 9:[address] [facility] NRBC 0.0 <1.0 % LAB HEMETOLOGY METHOD 09/27/2024 9:[address] [facility] NRBC Absolute 0.00 <0.10 K/mcL LAB HEMETOLOGY METHOD 09/27/2024 9:[address] [facility] Blood Venous blood specimen / Unknown Venipuncture / Unknown 09/27/2024 7:16 AM EDT 09/27/2024 9:26 AM EDT us Bernadine Florez MD LAB BLOOD ORDERABLES Final Resul t [facility] [address] [place] [address], documented in this encounter Visit Diagnoses Diagnosis Other malaise Unspecified atrial fibrillation (CMS/HCC V24, CMS/HCC V28) documented in this encounter Additional Health Concerns Infection Onset Date Last Indicated Resolved Time Tuberculosis Rule-Out 01/12/2025 01/12/20252024 7:05 PM EDT documented as of this encounter Care Teams Hand Brush Filler Relationship Specialty Start Date End Date Le Recinos DO [address] [place] [address] PCP - General 04/28/24 documented as of this encounter
--- OUTSIDE RECORDS SUMMARY | 2025-04-07 14:45 | XMS_ITS | Encounter Summary ---
Author Organization [facility] Address [address] [place] [address] Care Team Providers Care Methods And Procedures Analyst Name Role Phone FerozLe gomes Primary Care Provider [phone] Encounter Details Date Type Department Care Team (Late st Contact Info) Description 10/06/2024 Lab Requisition [facility] - Main Lab [address] [place] [address] Bernadine Florez MD [address] [place], [place] [id number] Essential (primary) hypertension; FCI (current) use of anticoagulants; Chronic obstructive pulmonary [...] Coumadin Clinic [facility] [address] [place] [phone] 06/03/2025 2:45 PM EST [facility] [address] [place] [address] Aide Linares, LEWIS [address] [place] [address] documented as of this encounter Procedures Procedure Name Priority Date/Time Associated Diagnosis Comments PROTHROMBIN TIME WITH INR Routine 10/06/2024 8:29 AM EDT Essential (primary) hypertension tank terminal gauger (current) use of anticoagulants Chronic obstructive pulmonary disease, unspecified (CMS/HCC) COMPLETE BLOOD COUNT Routine 10/06/2024 8:29 AM EDT Essential (primary) hypertension FCI (current) use of anticoagulants Chronic obstructive pulmonary disease, unspecified (CMS/HCC) BASIC METABOLIC PANEL Routine 10/06/2024 8:29 AM EDT Essential (primary) hypertension FCI (current) use of anticoagulants Chronic obstructive pulmonary disease, unspecified (CMS/HCC) documented in this encounter Results * (ABNORMAL) Basic metabolic panel (10/06/2024 8:29 AM EDT) Sodium 137 133 - 145 mmol/L LAB CHEMISTRY METHOD 10/06/2024 1:22 PM EDT [facility] Potassium 4.4 3.5 - 5.5 mmol/L LAB CHEMISTRY METHOD 10/06/2024 1:22 PM EDT [facility] Chloride 106 96 - 110 mmol/L LAB CHEMISTRY METHOD 10/06/2024 1:22 PM EDT [facility] CO2 21 21 - 32 mmol/L LAB CHEMISTRY METHOD 10/06/2024 1:22 PM [facility] Anion Gap 10 3 - 11 LAB CHEMISTRY METHOD 10/06/2024 1:22 PM [facility] Glucose 116(H) 70 - 100 mg/dL LAB CHEMISTRY METHOD 10/06/2024 1:22 PM [facility] BUN 12 5 - 25 mg/dL LAB CHEMISTRY METHOD 10/06/2024 1:22 PM [facility] Creatinine 0.84 0.70 - 1.30 mg/dL LAB CHEMISTRY METHOD 10/06/2024 1:22 PM [facility] eGFR 92 >=60 mL/min/1. 73m2 LAB CHEMISTRY METHOD 10/06/2024 1:22 PM [facility] Comment:Calculation based on the Chronic Kidney Disease Epidemiology Collaboration (CKD-EPI) equation refit without adjustment for race. BUN/Creatinine Ratio 14.3 LAB CHEMISTRY METHOD 10/06/2024 1:22 PM [facility] Calcium 8.8 8.5 - 10.5 mg/dL LAB CHEMISTRY METHOD 10/06/2024 1:22 PM [facility] Blood Venous blood specimen / Unknown Venipuncture / Unknown 10/06/2024 8:29 AM EDT 10/06/2024 10:25 AM EDT us Bernadine Florez MD LAB BLOOD ORDERABLES Final Resul t [facility] [address] [place] [address], * (ABNORMAL) Prothrombin time with INR (10/06/2024 8:29 AM EDT) Protime 46.4(H) 10.6 - 13.9 sec LAB COAGULATION METHOD 10/06/2024 12:04 PM EDT [facility] INR 3.8 LAB COAGULATION METHOD 10/06/2024 12:04 PM EDT [facility] Blood Venous blood specimen / Unknown Venipuncture / Unknown 10/06/2024 8:29 AM EDT 10/06/2024 10:25 AM EDT us Bernadine Florez MD LAB BLOOD ORDERABLES Final Resul t [facility] [address] [place] [address], [place] [phone] * (ABNORMAL) Complete blood count (10/06/2024 8:29 AM EDT) WBC 7.8 4.8 - 10.8 K/mcL LAB HEMETOLOGY METHOD 10/06/2024 11:56 AM EDT [facility] RBC 4.30(L) 4.50 - 5.50 M/mcL LAB HEMETOLOGY METHOD [facility] Hemoglobin 12.2(L) 13.5 - 17.5 g/dL LAB HEMETOLOGY METHOD 10/06/2024 11:56 AM [facility] Hematocrit 37.6(L) 42.0 - 54.0 % LAB HEMETOLOGY METHOD 10/06/2024 11:56 AM EDT [facility] MCV 87.4 79.0 - 98.0 FL LAB HEMETOLOGY METHOD 10/06[facility]2024 11[facility] MCH 28.4 27.0 - 32.0 pcg LAB HEMETOLOGY METHOD 10/06/2024 11:[facility] MCHC 32.4 32.0 - 37.0 g/dL LAB HEMETOLOGY METHOD 10/06/2024 11:56 AM EDT [facility] RDW 14.1 11.0 - 15.0 % LAB HEMETOLOGY METHOD 10/06/2024 11:56 AM EDT [facility] Platelets 259 130 - 400 K/mcL LAB HEMETOLOGY METHOD 10/06/2024 11:56 AM EDT [facility] MPV 10.5 7.0 - 11.0 FL LAB HEMETOLOGY METHOD 10/06/2024 11:56 AM EDT [facility] NRBC 0.0 <1.0 % LAB HEMETOLOGY METHOD 10/06/2024 11:56 AM EDT [facility] NRBC Absolute 0.00 <0.10 K/mcL LAB HEMETOLOGY METHOD 10/06/2024 11:56 AM EDT [facility] Blood Venous blood specimen / Unknown Venipuncture / Unknown 10/06/2024 8:29 AM EDT 10/06/2024 10:25 AM EDT us Bernadine Florez MD LAB BLOOD ORDERABLES Final Resul t [facility] [address] [place] [address], documented in this encounter Visit Diagnoses Diagnosis Essential (primary) hypertension Unspecified essential hypertension tank terminal gauger (current) use of anticoagulants Long-term (current) use of anticoagulants Chronic obstructive pulmonary disease, unspecified (CMS/HCC V24, CMS/HCC V28) documented in this encounter Additional Health Concerns Infection Onset Date Last Indicated Resolved Time Tuberculosis Rule-Out 01/12/2025 01/12/20252024 7:05 PM EDT documented as of this encounter Care Teams Methods And Procedures Analyst Relationship Specialty Start Date End Date Le Recinos DO [address] [place] [address] PCP - General 04/28/24 documented as of this encounter
--- OUTSIDE RECORDS SUMMARY | 2025-04-07 14:46 | XMS_ITS | Clinical Summary ---
Author Organization [facility] Address [address] [place] [address] Care Team Providers Care Project Development Leader Name Role Phone Caterina Sena MD Primary [...] age to complete this topic Care Teams Project Development Leader Relationship Specialty Start Date End Date Caterina Sena MD PCP - General Family Medicine 04/07/23
--- OUTSIDE RECORDS SUMMARY | 2025-04-07 14:46 | XMS_ITS | Encounter Summary ---
Author Organization [facility] Address [address] [place] [address] Care Team Providers Care Certified Emergency Vehicle Technician Name Role Phone JorjeLe Primary Care Provider [phone] Encounter Details Date Type Department Care Team (Late st Contact Info) Description 09/29/2024 Lab Requisition [facility] - Main Lab [address] [place] [address] Bernadine Florez MD [address] [place], [place] [phone] Unspecified atrial fibrillation (CMS/HCC V24, CMS/HCC V28) [...] EDT Anticoagulation - Warfarin Visit Coumadin Clinic [facility] [address] [place] [phone] 06/03/2025 2:45 PM EST Office Visit Internal Medicine - [facility] [address] [place] [address] Aide Linares, LEWIS [address] [place] [address] documented as of this encounter Procedures Procedure Name Priority Date/Time Associated Diagnosis Comments PROTHROMBIN TIME WITH INR Routine 09/30/2024 6:25 AM EDT Unspecified atrial fibrillation (CMS/HCC) documented in this encounter Results * (ABNORMAL) Prothrombin time with INR (09/30/2024 6:25 AM EDT) Protime 38.4(H) 10.6 - 13.9 sec LAB COAGULATION METHOD 09/30/2024 9:[address] [facility] INR 3.1 LAB COAGULATION METHOD 09/30/2024 9:[address] [facility] Blood Venous blood specimen / Unknown Venipuncture / Unknown 09/30/2024 6:25 AM EDT 09/30/2024 8:46 AM EDT us Bernadine Florez MD LAB BLOOD ORDERABLES Final Resul t [facility] [address] [place] [address], documented in this encounter Visit Diagnoses Diagnosis Unspecified atrial fibrillation (CMS/HCC V24, CMS/HCC V28) documented in this encounter Additional Health Concerns Infection Onset Date Last Indicated Resolved Time Tuberculosis Rule-Out 01/12/2025 01/12/20252024 7:05 PM EDT documented as of this encounter Care Teams Certified Emergency Vehicle Technician Relationship Specialty Start Date End Date Le Recinos DO [address] [facility] [place] [address] PCP - General 04/28/24 documented as of this encounter
--- OUTSIDE RECORDS SUMMARY | 2025-04-07 14:46 | XMS_ITS | Encounter Summary ---
Author Organization [facility] Address [address] [place] [address] Care Team Providers Care Oyster Culturist Name Role Phone JorjeLe Primary Care Provider [phone] Encounter Details Date Type Department Care Team (Late st Contact Info) Description 10/17/2024 Lab Requisition [facility] - Main Lab [address] [place] [address] Bernadine Florez MD [address] [place], [place] [phone] Unspecified atrial fibrillation (CMS/HCC V24, CMS/HCC V28) [...] EDT Anticoagulation - Warfarin Visit Coumadin Clinic [facility] [address] [place] [phone] 06/03/2025 2:45 PM EST [facility] [address] [place] [address] Aide Linares, LEWIS [address] [place] [address] documented as of this encounter Procedures Procedure [...] Resul t [facility] [address] [place] [address], documented in this encounter Visit Diagnoses Diagnosis Unspecified atrial fibrillation (CMS/HCC V24, CMS/HCC V28) documented in this encounter Additional Health Concerns Infection Onset Date Last Indicated Resolved Time Tuberculosis Rule-Out 01/12/2025 01/12/20252024 7:05 PM EDT documented as of this encounter Care Teams Oyster Culturist Relationship Specialty Start Date End Date Le Recinos DO [address] [facility] [place] [address] PCP - General 04/28/24 documented as of this encounter
--- OUTSIDE RECORDS SUMMARY | 2025-04-07 14:46 | XMS_ITS | Clinical Summary ---
Author Organization [place] [address] [facility] Building Address [address] [place] [phone] Phone Care Team Providers Care Merchandise Complaint Adjuster Name Role Phone Laurie Recinosmana Primary Care Provider [phone] Allergies No known active allergies Medications warfarin [...] Z-Savage. Squamous cell carcinoma lung , left ([facility] V24, [facility] V28) 06/30/2023 Overview (05/31/2024): 04/30/2023 status post [...] I explained how the size, shape, and globe changer time affect her level of suspicion for [...] that I will have him see his incinerator attendant for a risk assessment as well as a nursing care attendant to give recommendations around anticoagulation around surgery. He certainly will have to stop his Coumadin 5 days prior to operation but the question of a bridge or what to bridge with. Aortic root dilatation (CMS/HCC V24) 01/24/2023 Coronary artery disease invo lving upper [place] coronary artery of [place] heart without angina pectoris 06/20/2022 Mixed hyperlipidemia 06/20/2022 Primary hypertension 04/23/2022 Coronary artery disease due to calcified coronar y lesion 03/18/2022 Lab test positive for detection of COVID-19 viru s 07/11/2021 Overview (05/31/2024): 07/03/21, [facility] 07/03/21 Thoracic aortic aneurysm ([facility] V24) 1 Elevated LFTs 11/27/2020 IBS (irritable bowel syndrome) 02/03/2020 Overview (05/31/2024): Diarrhea predominant Chronic diarrhea 12/23/2019 Fatty liver 07/09/2019 Nephrolithiasis 07/09/2019 Diplopia 06/26/2017 Overview (05/31/2024): 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 Neg CN 2004. Small polyps x 2 at CN 05/13/2011: Pathology report: Tubular adenomas x 2. 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 Resolved Problems Problem Noted Date Diagnosed Date Resolved Date SBO (small bowel obstruction ) ([facility] [place], [facility] V28) 08/29/2024 09/16/2024 Encounters Date Type Department Care Team Description 04/04/2025 Anticoagulation - Warfarin Visit Coumadin [facility] [place] [phone] Kiara Anderson LPN Deep vein thrombosis (DVT) of distal vein of left lower extremity, unspecified chronicity ([facility] V24, [facility] V28) (Primary Dx); Factor V Leiden mutation ([facility] V24) 03/31/2025 1:00 PM EDT Anticoagulation - Warfarin Visit Coumadin [address] [phone] Deep vein thrombosis (DVT) of distal vein of left lower extremity, unspecified chronicity ([facility] V24, [facility] V28) (Primary Dx); Factor V Leiden mutation ([facility] V24) 03/25/2025 Anticoagulation - Warfarin Visit Coumadin [address] [phone] Kiara Anderson LPN Deep vein thrombosis (DVT) of distal vein of left lower extremity, unspecified chronicity ([facility] V24, [facility] V28) (Primary Dx); Factor V Leiden mutation ([facility] V24) 03/22/2025 Telephone [facility] [address] [place] [phone] Divina Lozoya LPN 03/17/2025 1:30 PM EDT Anticoagulation - Warfarin Visit Coumadin [facility] [place] [phone] Deep vein thrombosis (DVT) of distal vein of left lower extremity, unspecified chronicity ([facility] V24, [facility] V28) (Primary Dx); Factor V Leiden mutation ([facility] V24) 02/24/2025 1:45 PM EDT Anticoagulation - Warfarin Visit Coumadin [facility] [place] [phone] Deep vein thrombosis (DVT) of distal vein of left lower extremity, unspecified chronicity (CMS/HCC V24, CMS/HCC V28) (Primary Dx); Factor V Leiden mutation ([facility]/HCC V24) 02/10/2025 2:15 PM EDT Office Visit Internal Medicine - [facility] [address] [place], [place] [phone] Le Recinos DO Primary hypertension (Primary Dx); Mixed hyperlipidemia; Chronic obstructive pulmonary disease, unspecified COPD type (CMS/HCC V24, CMS/HCC V28); Heartburn; Factor V Leiden mutation ([facility] V24); Chronic midline back pain, unspecified back location; Depression, unspecified depression type 02/10/2025 1:45 PM EDT Anticoagulation - Warfarin Visit Coumadin Clinic - [address] [phone] Deep vein thrombosis (DVT) of distal vein of left lower extremity, unspecified chronicity (CMS/HCC V24, CMS/HCC V28) (Primary Dx); Factor V Leiden mutation ([facility]/HCC V24) 02/02/2025 1:00 PM EDT Office Visit Thoracic Surgery - [address] [phone] Mariluz Ngo MD Pulmonary nodule (Primary Dx); Squamous cell carcinoma lung, left (CMS/HCC V24, CMS/HCC V28) 02/01/2025 10:36 AM EDT - 02/01/2025 11:59 PM EDT Hospital Encounter [facility] [address] [place] [phone] Pulmonary nodule; SOB (shortness of breath) Discharge Disposition: Home or Self Care 02/01/2025 Telephone Pulmonology - [address] [phone] Collette Avalos MD 01/25/2025 2:00 PM EDT Office Visit Pulmonology - [place] [address] [phone] Collette Avalos MD Pulmonary nodule (Primary Dx); SOB (shortness of breath) 01/25/2025 1:15 PM EDT Anticoagulation - Warfarin Visit Coumadin [facility] [address] [place] [phone] Deep vein thrombosis (DVT) of distal vein of left lower extremity, unspecified chronicity (CMS/HCC V24, CMS/HCC V28) (Primary Dx); Factor V Leiden mutation (CMS/HCC V24) 01/17/2025 1:00 PM EDT Anticoagulation - Warfarin Visit Coumadin [place] [address] [place] [phone] Deep vein thrombosis (DVT) of distal vein of left lower extremity, unspecified chronicity (CMS/HCC V24, CMS/HCC V28) (Primary Dx); Factor V Leiden mutation (CMS/HCC V24) 01/14/2025 Anticoagulation - Warfarin Visit Coumadin [facility] [address] [place] [phone] Divina Lozoya LPN Deep vein thrombosis (DVT) of distal vein of left lower extremity, unspecified chronicity (CMS/HCC V24, CMS/HCC V28) (Primary Dx); Factor V Leiden mutation ([facility]/HCC V24) 01/12/2025 2:17 PM EDT Anesthesia Event [facility] OR [address] [place] [phone] Aide Banda MD Madonick, Maria M, CRNA 01/12/2025 12:35 PM EDT - 01/12/2025 3:15 PM EDT Surgery [facility] OR [address] [place] [phone] Collette Avalos MD FLEXIBLE/ ROBOTIC ASSISTED BRONCHOSCOPY W. LLL FNA, TBBX, CRYO, BAL FOR CYTO AND CULTURE, 11R, 4R, LEVEL 7, 11L, FIDUCIAL PLACEMENT LLL [26045 (CPT )] 01/12/2025 10:20 AM EDT - 01/12/2025 11:59 PM EDT Hospital Encounter [facility] Xray [address] [place] [phone] Pain Discharge Disposition: Home or Self Care 01/12/2025 10:15 AM EDT - 01/12/2025 5:37 PM EDT Hospital Encounter [facility] Main OR [address] [place] [phone] Collette Avalos MD Lung nodule Discharge Disposition: Home or Self Care 01/10/2025 8:15 AM EDT Anticoagulation - Warfarin Visit [facility]madin Clinic - [facility] [address] [place] [phone] Deep vein thrombosis (DVT) of distal vein of left lower extremity, unspecified chronicity (CMS/HCC V24, CMS/HCC V28) (Primary Dx); Factor V Leiden mutation ([facility]/HCC V24) from Last 3 Months Immunizations Name [...] polyps x2: Tubular adenoma x2. APPENDECTOMY PROCEDURE: FL APPENDECTOMY OTHER SURGICAL HISTORY 04/30/2023 Left PROCEDURE: FL THORACOSCOPY W/SEGMENTECTOMY; COMMENT: MARCIAL wedge w/ segmentectomy [...] COMMENT: Actinic keratosis 03/08 forehead 03/28 left mandaeism COPD (chronic obstructive pu lmonary disease) (CMS/HCC V24, CMS/HCC V28) DX:COPD (chronic o bstructive pulmonary disease) (HCC) Lung cancer (CMS/HCC V24, CMS/HCC V28) status post resection Hypertension Hyperlipidemia Factor V Leiden ([facility]/HCC V24) History of DVT (deep vein thrombosis) [...] EDT Anticoagulation - Warfarin Visit Coumadin Clinic [facility] [address] [place] [phone] 06/03/2025 2:45 PM EST Office Visit Internal Medicine - [facility] [address] [place] [phone] Aide Linares, LEWIS [address] [place] [address] Health Maintenance Due Date Last Done Comments [...] this topic Medical Devices Implanted Type Area Manager Utilization Review Device Identifier Shelf Expiration Date Model / Serial / Lot Tray Rad Cath 1lum Poly 4f - [id number] Implanted:Qty: 1 on 09/08/2024 by Savanah Go MD at [facility] Central/Chloe pheral Catheters and Ports Right: Arm BD VASCULAR ACCESS DEVICES FKA BARD ACCESS [id number] 06/19/2026 [id number] / / [id number] Marker Cobra Superlock - Sn/A - [id number] Implanted:Qty: 1 on 01/12/2025 by Collette Avalos MD at [facility] Imaging Implants Left: Lung [employer] [id number] 11/01/2028 [id number] / N/A / [id number] Description:Left lower lobe Procedures Procedure Name Priority Date/Time Associated Diagnosis Comments PROTHROMBIN TIME WITH INR Routine 04/04/2025 9:51 AM EDT Deep vein thrombosis (DVT) of distal vein of left lower extremity, unspecified chronicity (CMS/HCC V24, CMS/HCC V28) Factor V Leiden mutation (CMS/HCC V24) POC PROTIME INR BLOOD Routine 03/31/2025 1:00 PM EDT Deep vein thrombosis (DVT) of distal vein of left lower extremity, unspecified chronicity (CMS/HCC V24, CMS/HCC V28) Factor V Leiden mutation (CMS/HCC V24) PROTHROMBIN TIME WITH INR Routine 03/25/2025 10:03 [...] Routine 01/12/2025 2:34 PM EDT Lung nodule FL BRONCHOSCOPY RIGID/FLEXIBLE W/EBUS >=3 MEDIASTINAL/HILAR LYMPH NODES 01/12/2025 2:17 PM EDT Lung nodule FL BRONCHOSCOPY RIGID/FLEXIBLE W/TRANSBRONCHIAL LUNG BIOPSY(S) SINGLE LOBE 01/12/2025 2:17 PM EDT Lung nodule FL BRONCHOSCOPY RIGID/FLEXIBLE COMPUTER ASSISTED IMAGE GUIDED NAVIGATION [...] SCRREN Routine 05/30/2020 HM COLONOSCOPY Routine 05/01/2020 HM HEPATITIS C SCREENING Routine 01/25/2013 from Last 3 Months or Most Recently Relevant to Health Maintenance Results * (ABNORMAL) Prothrombin time with INR (04/04/2025 9:51 AM EDT) Only the most recent of3 resultswithin the time period is included. Protime 22.1(H) 10.6 - 13.9 sec LAB COAGULATION METHOD 04/04/2025 11:34 AM EDT [facility] INR 1.8 LAB COAGULATION METHOD 04/04/2025 11:34 AM EDT [facility] Blood Venous blood specimen / Unknown Venipuncture / Unknown 04/04/2025 9:51 AM EDT 04/04/2025 9:51 AM EDT Le Recinos DO LAB BLOOD ORDERABLES Final Res ult [facility] [address] [place] [address], [place] [phone] * POC Protime INR Blood (03/31/2025 1:00 PM EDT) Only the most recent of7 resultswithin the time period is included. Lot Number INR POC 1.1 Prothrombin Time POC Exp Date Blood 03/31/2025 1:00 PM EDT Wil Schafer MD POINT OF CARE TEST ENTER/ EDIT ORDERABLES Final Result * Pulmonary function testing: Carbon Monoxide Diffusing Capacity, Spirometry with Bronchodilator, Nitrogen Wash Out (02/01/2025 11:34 AM EDT) Narrative Toshia Hernandez MD - 02/11/2025 3:17 PM EDT Table formatting from the original result was not included. Images from the original result were not included. [facility] [address] [place] [address] Pulmonary Functions Report Date of service: 02/01/25 [...] on 01/12/2025 4:55 PM. Workstation Name - [id number] -------- FINAL REPORT -------- Dictated By: Santy Lorenzana Dictated Date: 01/12/2025 16:41 ET Assigned Physician: Santy Lorenzana Reviewed and Electronically Signed By: Santy Lorenzana Signed Date: 01/12/2025 16:55 ET Workstation ID: [id number] Transcribed By: Self Edit Transcribed Date: 01/12/2025 [...] Lorenzana on 01/12/2025 4:55 PM.Workstation Name - [id number] -------- FINAL REPORT -------- Dictated By: Santy Lorenzana Dictated Date: 01/12/2025 16:41 ET Assigned Physician: Santy Lorenzana Reviewed and Electronically Signed By: Santy Lorenzana Signed Date: 01/12/2025 16:55 ET Workstation ID: [id number] Transcribed By: Self Edit Transcribed Date: 01/12/2025 [...] at 3 days 01/15/2025 10:07 AM EDT [facility] Gram Stain Result Many WBCs present 01/15/2025 10:07 AM EDT [facility] Gram Stain Result No organisms seen 01/15/2025 10:07 AM EDT [facility] Wash Structure of lower lobe of left lung / Unknown 01/12/2025 2:54 PM EDT 01/12/2025 3:53 PM EDT Comment:No concern for TB Collette Avalos MD LAB MICROBIOLOGY - GENERAL ORDERABLES Final Result [facility] [address] [place] [address], [place] [phone] * Culture AFB and smear (01/12/2025 2:54 PM EDT) Culture AFB No AFB isolated after 6 weeks. 02/24/2025 9:42 AM EDT [facility] AFB Stain No Acid fast bacilli seen 02/24/2025 9:42 AM EDT [facility] Wash Structure of lower lobe of left lung / Unknown 01/12/2025 2:54 PM EDT 01/12/2025 3:53 PM EDT Comment:No concern for TB Collette Avalos MD LAB MICROBIOLOGY - GENERAL ORDERABLES Final Result Performing Organization Address [facility]/ZIP Co de Phone Number [facility] [address] [place] [address], [place] [phone] * Culture fungus, miscellaneous source (01/12/2025 2:54 PM EDT) Culture, Fungus No Yeast or Mold isolated after 4 Weeks. 02/10/2025 12:01 AM EDT [facility] Wash Structure of lower lobe of left lung / Unknown 01/12/2025 2:54 PM EDT 01/12/2025 3:53 PM EDT Comment:No concern for TB Collette Avalos MD LAB MICROBIOLOGY - GENERAL ORDERABLES Final Result [facility] [address] [place] [address], [place] [phone] * TH AN ENDOTRACHEAL(NO CHARGE) (01/12/2025 2:40 PM EDT) Jocelyne Avendaño CRNA - 01/12/2025 2:40 PM EDT Jocelyne Negron CRNA 01/12/2025 2:41 PM General Information and Staff Patient location during procedure: OR Resident/TRAVERTINE INSTALLER: Jocelyne Negron CRNA Performed: resident/TRAVERTINE INSTALLER/CAA Performed by: Jocelyne Negron CRNA Authorized by: [...] 01/12/2025 2:25 PMStop Time: 01/12/2025 2:26 PM Aide Banda MD ANESTHESIA ORDERABLES Final Result * Tissue exam (01/12/2025 2:36 PM EDT) Final Diagnosis Lung, left lower lobe, cryobiopsy: Lung parenchyma with patchy inflammation. No evidence of malignancy. Note: Multiple additional levels were examined. This case was shown in an intradepartmental conference on 01/14/2025. The above diagnosis reflects the consensus opinion. 01/14/2025 4:29 PM EDT [facility] ([facility] Gross Description A. Lung, Left Lower [...] 01/13/25 (5 pieces) 01/14/2025 4:29 PM EDT [facility] Disclaimer The technical components of this case were performed at [address] [address] CLIA # [id number] 01/14/2025 4:29 PM EDT [facility] Tissue Structure of lower lobe of left lung / Unknown 01/12/2025 2:36 PM EDT 01/13/2025 7:14 AM EDT us Collette Avalos MD LAB PATHOLOGY ORDERABLES F inal Result [facility] [address] [place] [address], * Non-gynecologic cytology (01/12/2025 2:34 PM EDT) [...] lymph node sampling. Refer to surgical case [id number]. 01/14/2025 4:29 PM EDT [facility] Specimen A Adequacy Satisfactory for evaluation 01/14/2025 4:29 PM EDT [facility] Specimen B Adequacy Satisfactory for evaluation 01/14/2025 4:29 PM EDT [facility] Specimen C Adequacy Satisfactory for evaluation 01/14/2025 4:29 PM EDT [facility] Specimen D Adequacy Satisfactory for evaluation 01/14/2025 4:29 PM EDT [facility] Specimen E Adequacy Satisfactory for evaluation 01/14/2025 4:29 PM EDT [facility] Specimen F Adequacy Satisfactory for evaluation 01/14/2025 4:29 PM EDT [facility] Clinical Information IN CYTO 01/14/2025 4:29 PM EDT [facility] Gross Description A. Lung, Left Lower [...] and Cell Block. 01/14/2025 4:29 PM EDT [facility] Disclaimer The technical components of [place] [address] [facility] # [id number] 01/14/2025 4:29 PM EDT [facility] Fine Needle Aspirate Structure of lower [...] MD LAB CYTOLOGY ORDERABLES Fi nal Result [facility] [address] [place] [address], * (ABNORMAL) Basic metabolic panel (12/20/2024 1:31 PM EDT) Sodium 138 133 - 145 mmol/L LAB CHEMISTRY METHOD 12/20/2024 4:33 PM EDT [facility] Potassium 3.9 3.5 - 5.5 mmol/L LAB CHEMISTRY METHOD 12/20/2024 4:33 PM EDT [facility] Chloride 104 96 - 110 mmol/L LAB CHEMISTRY METHOD 12/20/2024 4:33 PM EDT [facility] CO2 27 21 - 32 mmol/L LAB CHEMISTRY METHOD 12/20/2024 4:33 PM EDT [facility] Anion Gap 7 3 - 11 LAB CHEMISTRY METHOD 12/20/2024 4:33 PM [facility] Glucose 107(H) 70 - 100 mg/dL LAB CHEMISTRY METHOD 12/20/2024 4:33 PM T [facility] BUN 11 5 - 25 mg/dL LAB CHEMISTRY METHOD 12/20/2024 4:33 PM [facility] Creatinine 0.81 0.70 - 1.30 mg/dL LAB CHEMISTRY METHOD 12/20/2024 4:[facility] eGFR 93 >=60 mL/min/1. 73m2 LAB CHEMISTRY METHOD 12/20/2024 4:33 PM EDT [facility] Comment:Calculation based on the Chronic Kidney Disease Epidemiology Collaboration (CKD-EPI) equation refit without adjustment for race. BUN/Creatinine Ratio 13.6 LAB CHEMISTRY METHOD 12/20/2024 4:33 PM [facility] Calcium 9.1 8.5 - 10.5 mg/dL LAB CHEMISTRY METHOD 12/20/2024 4:33 PM [facility] Blood Venous blood specimen / Unknown Venipuncture / Unknown 12/20/2024 1:31 PM EDT 12/20/2024 1:35 PM EDT us Collette Avalos MD LAB BLOOD ORDERABLES Final Result [facility] [address] [place] [address], * (ABNORMAL) Lipid panel with reflex to direct LDL (07/28/2024 3:53 PM EST) Cholesterol 162 0 - 200 mg/dL LAB CHEMISTRY METHOD 07/28/2024 6:57 PM EST [facility] Triglycerides 212(H) 0 - 150 mg/dL LAB CHEMISTRY METHOD 07/28/2024 6:57 PM EST [facility] HDL 50 >=40 mg/dL LAB CHEMISTRY METHOD 07/28/2024 6:57 PM [facility] LDL Calculated 70 0 - 100 mg/dL LAB CHEMISTRY METHOD 07/28/2024 6:57 PM [facility] VLDL Cholesterol Hermelindo 42.4 mg/dL LAB CHEMISTRY METHOD 07/28/2024 6:57 PM [facility] Non HDL Chol. (LDL+VLDL) 112 <145 mg/dL LAB CHEMISTRY METHOD 07/28/2024 6:57 PM [facility] Chol/HDL Ratio 3.2 0.0 - 4.4 LAB CHEMISTRY METHOD 07/28/2024 6:57 PM [facility] Blood Venous blood specimen / Unknown Venipuncture / Unknown 07/28/2024 3:53 PM EST 07/28/2024 3:53 PM EST us Ca Durán NP LAB BLOOD ORDERABLES Final Resul t [facility] [address] [place] [address], * CT LUNG SCREENING LOW DOSE (03/17/2023 3:36 PM EDT) Anatomical Region Laterality Modality Computed Tomogra phy 03/17/2023 1:40 PM EDT Narrative 03/17/2023 3:36 PM EDT [facility] Diagnostic Imaging Department [address] [place] [address] Patient: YURIY JOY /Age/Sex: 1950 - 72 - M Unit#: [id number] Location/Status: SPDICATLS/REG CLI Mnemonic/Ordering Site: [facility] Ordering Physician: MARILUZ NGO MD CT [...] Procedure Note Jame Zamora MD - 08/26/2023 [facility] Diagnostic Imaging Department [address] [place], [place] [phone] Patient: YURIY JOY /Age/Sex: 1950 - 72 - M Unit#: [id number] Location/Status: SPDICATLS/REG CLI Mnemonic/Ordering Site: [facility]/SPCT Ordering Physician: MARILUZ NGO MD CT Lung [...] Date/Time: 03/17/23 1523 Sign date/Time: 03/17/23 1536 us Mariluz Ngo MD IMG CT PROCEDURES Final Result * Abdominal Aortic Aneurysm Screen (05/30/2020) Abdominal Aortic Aneurysm (AAA) Screening abstracted, no interpretation Anatomical Region Laterality Modality Other Historical Provider HEALTH MAINTENANCE Final Result * Colonoscopy (05/01/2020) Colonoscopy abstracted, no interpretation Anatomical Region Laterality Modality Other Historical Provider HEALTH MAINTENANCE Final Result * Hepatitis C Screening (01/25/2013) Hepatitis C Screening abstracted [facility] Provider HEALTH MAINTENANCE Final Result from Last 3 Months or Most Recently Relevant to Health Maintenance Insurance [employer] [place] MEDICARE ADVANTAGE Advance Directives Documents on File Type Date Recorded Patient Car Icer Expl anation Health Care Decision (hx) 06/11/2023 AD TURNER DIRECTIVE Health Care Decision (hx) 06/11/2023 AD TURNER DIRECTIVE Health Care Decision (hx) 06/11/2023 AD TURNER DIRECTIVE Health Care Decision (hx) 06/11/2023 AD TURNRE DIRECTIVE Health Care Decision (hx) 06/11/2023 Britni Rojas Page ADVANCE DIRECTIVE * Full Code - Default [...] Name Relationship Healthcare Agent Relationship Communication Britni [facility] Health Care Agent Aide Gamez Daughter Health Care Agent Care Teams Merchandise Complaint Adjuster Relationship Specialty Start Date End Date Le Recinos DO [address] [place] [id number] PCP - General 04/28/24
--- OUTSIDE RECORDS SUMMARY | 2025-04-07 14:46 | XMS_ITS | Encounter Summary ---
Author Organization [facility] Address [address] [place] [address] [address] Care [address] Man Name Role Phone JorjeLe Primary Care Provider [phone] Encounter Details Date Type Department Care Team (Late st Contact Info) Description 10/06/2024 Lab Requisition [facility] - Main Lab [address] [place] [address] Bernadine Florez MD [address] [place], [place] [id number] Unspecified atrial fibrillation (CMS/HCC V24, CMS/HCC V28) [...] Clinic [facility] [address] [place] [phone] 06/03/2025 2:45 PM EST Office Visit Internal Medicine - [facility] [address] [place] [address] Aide Linares, LEWIS [address] [place] [address] documented as of this encounter Procedures Procedure Name Priority Date/Time Associated Diagnosis Comments PROTHROMBIN TIME WITH INR Routine 10/07/2024 6:15 AM EDT Unspecified atrial fibrillation (CMS/HCC) documented in this encounter Results * (ABNORMAL) Prothrombin time with INR (10/07/2024 6:15 AM EDT) Protime 43.1(H) 10.6 - 13.9 sec LAB COAGULATION METHOD 10/07/2024 10:22 AM EDT [facility] INR 3.5 LAB COAGULATION METHOD 10/07/2024 10:22 AM EDT [facility] Blood Venous blood specimen / Unknown Venipuncture / Unknown 10/07/2024 6:15 AM EDT 10/07/2024 8:47 AM EDT us Bernadine Florez MD LAB BLOOD ORDERABLES Final Resul t [facility] [address] [place] [address], documented in this encounter Visit Diagnoses Diagnosis Unspecified atrial fibrillation (CMS/HCC V24, CMS/HCC V28) documented in this encounter Additional Health Concerns Infection Onset Date Last Indicated Resolved Time Tuberculosis Rule-Out 01/12/2025 01/12/20252024 7:05 PM EDT documented as of this encounter Care Teams Drive Man Relationship Specialty Start Date End Date Le Recinos DO [address] [facility] [place] [address] PCP - General 04/28/24 documented as of this encounter
--- OUTSIDE RECORDS SUMMARY | 2025-04-07 14:46 | XMS_ITS | Encounter Summary ---
Author Organization [facility] Address [address] [place] [address] Care Team Providers Care Manager Hospice Name Role Phone JorjeeL Primary Care Provider [phone] Encounter Details Date Type Department Care Team (Late st Contact Info) Description 10/20/2024 Lab Requisition [facility] - Main Lab [address] [place] [address] Bernadine Florez MD [address] [place], [place] [phone] Unspecified atrial fibrillation (CMS/HCC V24, CMS/HCC V28) [...] EDT Anticoagulation - Warfarin Visit Coumadin Clinic [facility] [address] [place] [phone] 06/03/2025 2:45 PM EST Office Visit Internal Medicine - [facility] [address] [place] [address] Aide Linares, LEWIS [address] [place] [address] documented as of this encounter Procedures Procedure Name Priority Date/Time Associated Diagnosis Comments PROTHROMBIN TIME WITH INR Routine 10/21/2024 5:44 AM EDT Unspecified atrial fibrillation (CMS/HCC) documented in this encounter Results * (ABNORMAL) Prothrombin time with INR (10/21/2024 5:44 AM EDT) Protime 25.4(H) 10.6 - 13.9 sec LAB COAGULATION METHOD 10/21/2024 8:31 AM EDT [facility] INR 2.0 LAB COAGULATION METHOD 10/21/2024 8:31 AM EDT [facility] Blood Venous blood specimen / Unknown Venipuncture / Unknown 10/21/2024 5:44 AM EDT 10/21/2024 8:08 AM EDT us Bernadine Florez MD LAB BLOOD ORDERABLES Final Resul t [facility] [address] [place] [address], documented in this encounter Visit Diagnoses Diagnosis Unspecified atrial fibrillation (CMS/HCC V24, CMS/HCC V28) documented in this encounter Additional Health Concerns Infection Onset Date Last Indicated Resolved Time Tuberculosis Rule-Out 01/12/2025 01/12/20252024 7:05 PM EDT documented as of this encounter Care Teams Manager Hospice Relationship Specialty Start Date End Date Le Recinos DO [address] [facility] [place] [address] PCP - General 04/28/24 documented as of this encounter
--- OUTSIDE RECORDS SUMMARY | 2025-04-07 14:46 | XMS_ITS | Encounter Summary ---
Author Organization [facility] Address [address] [place] [address] Care Team Providers Care Blender Snuff Name Role Phone FerozLe gomes Primary Care Provider [phone] Encounter Details Date Type Department Care Team (Late st Contact Info) Description 09/20/[address] [facility] - Main Lab [address] [place] [address] Bernadine Florez MD [address] [place], [place] [phone] rn long term care (current) use of anticoagulants; Unspecified Escherichia coli [...] EDT Anticoagulation - Warfarin Visit Coumadin Clinic [facility] [address] [place] [address] 06/03/2025 2:45 PM EST Office Visit Internal Medicine - [facility] [address] [place] [address] Aide Linares, LEWIS [address] [place] [address] documented as of this encounter Procedures Procedure Name Priority Date/Time Associated Diagnosis Comments PROTHROMBIN TIME WITH INR Routine 09/20/2024 7:20 AM EST rn long term care (current) use of anticoagulants Unspecified Escherichia coli (E. coli) as the cause of diseases classified elsewhere COMPLETE BLOOD COUNT Routine 09/20/2024 7:20 AM EST jail (current) use of anticoagulants Unspecified Escherichia coli (E. coli) as the cause of diseases classified elsewhere COMPREHENSIVE METABOLIC PANEL Routine 09/20/2024 7:20 AM EST rn long term care (current) use of anticoagulants Unspecified Escherichia coli (E. coli) as the cause of diseases classified elsewhere documented in this encounter Results * (ABNORMAL) Prothrombin time with INR (09/20/2024 7:20 AM EST) Protime 17.7(H) 10.6 - 13.9 sec LAB COAGULATION METHOD 09/20/2024 11:50 AM EST [facility] INR 1.4 LAB COAGULATION METHOD 09/20/2024 11:50 AM EST [facility] Blood Venous blood specimen / Unknown Venipuncture / Unknown 09/20/2024 7:20 AM EST 09/20/2024 10:54 AM EST us Bernadine Florez MD LAB BLOOD ORDERABLES Final Resul t [facility] [address] [place] [address], * (ABNORMAL) Comprehensive metabolic panel (09/20/2024 7:20 [...] MD LAB BLOOD ORDERABLES Final Resul t [facility] [address] [place] [address], * (ABNORMAL) Complete blood count (09/20/2024 7:20 AM EST) WBC 8.1 4.8 - 10.8 K/mcL LAB HEMETOLOGY METHOD 09/20/2024 11:50 AM [facility] RBC 4.00(L) 4.50 - 5.50 M/mcL LAB HEMETOLOGY METHOD 09/20/2024 11:50 AM [facility] Hemoglobin 11.4(L) 13.5 - 17.5 g/dL LAB HEMETOLOGY METHOD 09/20/2024 11:50 AM EST [facility] Hematocrit 36.6(L) 42.0 - 54.0 % LAB HEMETOLOGY METHOD 09/20/2024 11:50 AM [facility] MCV 91.3 79.0 - 98.0 FL LAB HEMETOLOGY METHOD 09/20/2024 11:50 AM EST [facility] MCH 28.4 27.0 - 32.0 pcg LAB HEMETOLOGY METHOD 09/20/2024 11:50 AM EST [facility] MCHC 31.1(L) 32.0 - 37.0 g/dL LAB HEMETOLOGY METHOD 09/20/2024 11:50 AM [facility] RDW 14.5 11.0 - 15.0 % LAB HEMETOLOGY METHOD 09/20/2024 11:50 AM [facility] Platelets 263 130 - 400 K/mcL LAB HEMETOLOGY METHOD 09/20/2024 11:50 AM EST [facility] MPV 10.2 7.0 - 11.0 FL LAB HEMETOLOGY METHOD 09/20/2024 11:50 AM [facility] NRBC 0.0 <1.0 % LAB HEMETOLOGY METHOD 09/20/2024 11:50 AM EST [facility] NRBC Absolute 0.00 <0.10 K/mcL LAB HEMETOLOGY METHOD 09/20/2024 11:50 AM EST [facility] Blood Venous blood specimen / Unknown Venipuncture / Unknown 09/20/2024 7:20 AM EST 09/20/2024 10:54 AM EST us Bernadine Florez MD LAB BLOOD ORDERABLES Final Resul t [facility] [address] [place] [address], documented in this encounter Visit Diagnoses Diagnosis rn long term care (current) use of anticoagulants Long-term (current) use of anticoagulants Unspecified Escherichia coli (E. coli) as the cause of diseases classified elsewhere documented in this encounter Additional Health Concerns Infection Onset Date Last Indicated Resolved Time Tuberculosis Rule-Out 01/12/2025 01/12/20252024 7:05 PM EDT documented as of this encounter Care Teams Blender Snuff Relationship Specialty Start Date End Date Le Recinos DO [address] [place] [address] PCP - General 04/28/24 documented as of this encounter
--- OUTSIDE RECORDS SUMMARY | 2025-04-07 14:46 | XMS_ITS ---
Author Organization [place] [address] [address] [facility] Address [address] [place] [address] Phone Care Team Providers Care Pricing Supervisor Name Role Phone Le Recinos DO Primary Care Provider [phone] Active Problems Problem Noted Date Diagnosed Date [...] Z-Savage. Squamous cell carcinoma lung , left (CMS/[facility] V24, CMS/[facility] V28) 06/30/2023 Overview (05/31/2024): 04/30/2023 status [...] I explained how the size, shape, and chart changer time affect her level of suspicion [...] that I will have him see his oracle specialist for a risk assessment as well as a director of channel marketing to give recommendations around anticoagulation around surgery. He certainly will have to stop his Coumadin 5 days prior to operation but the question of a bridge or what to bridge with. Aortic root dilatation (CMS/HCC V24) 01/24/2023 Coronary artery disease invo lving nez perce coronary artery of nez perce heart without angina pectoris 06/20/2022 Mixed hyperlipidemia 06/20/2022 Primary hypertension 04/23/2022 Coronary artery disease due to calcified coronar y lesion 03/18/2022 Lab test positive for detection of COVID-19 viru s 07/11/2021 Overview (05/31/2024): 07/03/21, [facility] 07/03/21 Thoracic aortic aneurysm (CMS/HCC V24) Elevated LFTs 11/27/2020 IBS (irritable bowel syndrome) 02/03/2020 Overview (05/31/2024): Diarrhea predominant Chronic diarrhea 12/23/2019 Fatty liver 07/09/2019 Nephrolithiasis 07/09/2019 Diplopia 06/26/2017 Overview (05/31/2024): 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 V28) 02/16/2016 Depression 08/18/2015 Overview (05/31/2024): [facility] Hyperlipidemia with target LDL less than 130 10/2012 Benign neoplasm of colon 05/13/2011 Overview (05/31/2024): 10 mm polyp 2002. Neg CN 2004. Small polyps x 2 at CN 05/13/2011: Pathology report: Tubular adenomas x 2. 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 Current Oncology Plans No current plan information found. Past Plans No past plan information found. Radiation Treatments * No radiation treatments are documented for this patient in [facility]. Treatments may have been administered in another system. Lifetime Dose Tracking * Chemical Lifetime Dose Automatic Entry Manual Entr y Fluoro Time 3.58 minutes 3.58 minutes 0 minutes Air Kerma 191.7 mGy 191.7 mGy 0 mGy Resolved Problems Problem Noted Date Diagnosed Date Resolved Date SBO (small bowel obstruction ) ([facility] V24, [facility] V28) 08/29/2024 09/16/2024
--- OUTSIDE RECORDS SUMMARY | 2025-04-07 14:46 | XMS_ITS | Encounter Summary ---
Author Organization [facility] Address [address] [place] [address] Care Team Providers Care Family Development Extension Specialist Name Role Phone JorjeLe Primary Care Provider [phone] Encounter Details Date Type Department Care Team (Late st Contact Info) Description 09/19/2024 Lab Requisition [facility] - Main Lab [address] [place] [address] Bernadine Florez MD [address] [place], [place] [phone] Chronic embolism and thrombosis of unspecified vein [...] Coumadin Clinic [facility] [address] [place] [phone] 06/03/2025 2:45 PM EST Office Visit Internal Medicine - [facility] [address] [place] [address] Aide Linares, LEWIS [address] [place] [address] documented as of this encounter Procedures Procedure [...] t [facility] [address] [place] [address], documented in this encounter Visit Diagnoses Diagnosis Chronic embolism and thrombosis of unspecified vein documented in this encounter Additional Health Concerns Infection Onset Date Last Indicated Resolved Time Tuberculosis Rule-Out 01/12/2025 01/12/20252024 7:05 PM EDT documented as of this encounter Care Teams Family Development Extension Specialist Relationship Specialty Start Date End Date Le Recinos DO [address] [place], [place] [address] [place] [address] PCP - General 04/28/24 documented as of this encounter
--- OUTSIDE RECORDS SUMMARY | 2025-04-07 14:46 | XMS_ITS | Encounter Summary ---
Author Organization [facility] Address [address] [place] [address] Care Team Providers Care Airline Stewardess Name Role Phone JorjeLe Primary Care Provider [phone] Encounter Details Date Type Department Care Team (Late st Contact Info) Description 10/13/[address] [facility] - Main Lab [address] [place] [address] Bernadine Florez MD [address] [place], [place] [phone] Unspecified atrial fibrillation (CMS/HCC V24, CMS/HCC V28) [...] Clinic [facility] [address] [place] [phone] 06/03/2025 2:45 PM EST Office Visit Internal Medicine - [facility] [address] [place] [address] Aide Linares, LEWIS [address] [place] [address] documented as of this encounter Procedures Procedure Name Priority Date/Time Associated Diagnosis Comments PROTHROMBIN TIME WITH INR Routine 10/14/2024 9:47 AM EDT Unspecified atrial fibrillation (CMS/HCC) documented in this encounter Results * (ABNORMAL) Prothrombin time with INR (10/14/2024 9:47 AM EDT) Protime 17.7(H) 10.6 - 13.9 sec LAB COAGULATION METHOD 10/14/2024 11:09 AM EDT [facility] INR 1.4 LAB COAGULATION METHOD 10/14/2024 11:09 AM EDT [facility] Blood Venous blood specimen / Unknown Venipuncture / Unknown 10/14/2024 9:47 AM EDT 10/14/2024 10:59 AM EDT us Bernadine Florez MD LAB BLOOD ORDERABLES Final Resul t [facility] [address] [place] [address], documented in this encounter Visit Diagnoses Diagnosis Unspecified atrial fibrillation (CMS/HCC V24, CMS/HCC V28) documented in this encounter Additional Health Concerns Infection Onset Date Last Indicated Resolved Time Tuberculosis Rule-Out 01/12/2025 01/12/20252024 7:05 PM EDT documented as of this encounter Care Teams Airline Stewardess Relationship Specialty Start Date End Date Le Recinos DO [address] [facility] [place] [address] PCP - General 04/28/24 documented as of this encounter
--- OUTSIDE RECORDS SUMMARY | 2025-04-07 14:46 | XMS_ITS | Encounter Summary ---
Author Organization [facility] Address [address] [place] [address] Care Team Providers Care Prep Person Name Role Phone JorjeLe Primary Care Provider [phone] Encounter Details Date Type Department Care Team (Late st Contact Info) Description 10/10/2024 Lab Requisition [facility] - Main Lab [address] [place] [address] Bernadine Florez MD [address] [place], [place] [phone] Other malaise; Unspecified atrial fibrillation (CMS/HCC V24, [...] EDT Anticoagulation - Warfarin Visit Coumadin Clinic [facility] 175 [address] [place] [address] 06/03/2025 2:45 PM EST Office Visit Internal Medicine - [facility] [address] [place] [address] Aide Linares, LEWIS [address] [place] [address] documented as of this encounter Procedures Procedure [...] LAB COAGULATION METHOD 10/11/2024 11:33 AM EDT [facility] INR 1.4 LAB COAGULATION METHOD 10/11/2024 11:33 AM EDT [facility] Blood Venous blood specimen / Unknown Venipuncture / Unknown 10/11/2024 6:48 AM EDT 10/11/2024 10:24 AM EDT Bernadine Florez MD LAB BLOOD ORDERABLES Final Resul t [facility] [address] [place] [address], * (ABNORMAL) Basic metabolic panel (10/11/2024 6:48 AM EDT) Sodium 139 133 - 145 mmol/L LAB CHEMISTRY METHOD 10/11/2024 12:02 PM [facility] Potassium 4.0 3.5 - 5.5 mmol/L LAB CHEMISTRY METHOD 10/11/2024 12:02 PM [facility] Chloride 105 96 - 110 mmol/L LAB CHEMISTRY METHOD 10/11/2024 12:02 PM [facility] CO2 24 21 - 32 mmol/L LAB CHEMISTRY METHOD 10/11/2024 12:02 PM [facility] Anion Gap 10 3 - 11 LAB CHEMISTRY METHOD 10/11/2024 12:02 PM [facility] Glucose 100 70 - 100 mg/dL LAB CHEMISTRY METHOD 10/11/2024 12:02 PM [facility] BUN 18 5 - 25 mg/dL LAB CHEMISTRY METHOD 10/11/2024 12:02 PM [facility] Creatinine 0.68(L) 0.70 - 1.30 mg/dL LAB CHEMISTRY METHOD 10/11/2024 12:02 PM [facility] eGFR 98 >=60 mL/min/1. 73m2 LAB CHEMISTRY METHOD 10/11/2024 12:02 PM [facility] Comment:Calculation based on the Chronic Kidney Disease Epidemiology Collaboration (CKD-EPI) equation refit without adjustment for race. BUN/Creatinine Ratio 26.5 LAB CHEMISTRY METHOD 10/11/2024 12:02 PM [facility] Calcium 9.5 8.5 - 10.5 mg/dL LAB CHEMISTRY METHOD 10/11/2024 12:02 PM [facility] Blood Venous blood specimen / Unknown Venipuncture / Unknown 10/11/2024 6:48 AM EDT 10/11/2024 10:23 AM EDT us Bernadine Florez MD LAB BLOOD ORDERABLES Final Resul t [facility] [address] [place] [address], * (ABNORMAL) Complete blood count (10/11/2024 6:48 AM EDT) WBC 5.7 4.8 - 10.8 K/mcL LAB HEMETOLOGY METHOD 10/11/2024 11:52 AM [facility] RBC 4.00(L) 4.50 - 5.50 M/mcL LAB HEMETOLOGY METHOD 10/11/2024 11:52 AM [facility] Hemoglobin 11.1(L) 13.5 - 17.5 g/dL LAB HEMETOLOGY METHOD 10/11/2024 11:52 AM [facility] Hematocrit 34.7(L) 42.0 - 54.0 % LAB HEMETOLOGY METHOD 10/11/2024 11:52 AM [facility] MCV 87.0 79.0 - 98.0 FL LAB HEMETOLOGY METHOD 10/11/2024 11:52 AM [facility] MCH 27.8 27.0 - 32.0 pcg LAB HEMETOLOGY METHOD 10/11/2024 11:52 AM [facility] MCHC 32.0 32.0 - 37.0 g/dL LAB HEMETOLOGY METHOD 10/11/2024 11:52 AM [facility] RDW 13.7 11.0 - 15.0 % LAB HEMETOLOGY METHOD 10/11/2024 11:52 AM [facility] Platelets 233 130 - 400 K/mcL LAB HEMETOLOGY METHOD 10/11/2024 11:52 AM EDT [facility] MPV 10.0 7.0 - 11.0 FL LAB HEMETOLOGY METHOD 10/11/2024 11:52 AM EDT [facility] NRBC 0.0 <1.0 % LAB HEMETOLOGY METHOD 10/11/2024 11:52 AM EDT [facility] NRBC Absolute 0.00 <0.10 K/mcL LAB HEMETOLOGY METHOD 10/11/2024 11:52 AM EDT [facility] Blood Venous blood specimen / Unknown Venipuncture / Unknown 10/11/2024 6:48 AM EDT 10/11/2024 10:23 AM EDT us Bernadine Florez MD LAB BLOOD ORDERABLES Final Resul t [facility] [address] [place] [address], documented in this encounter Visit Diagnoses Diagnosis Other malaise Unspecified atrial fibrillation (CMS/HCC V24, CMS/HCC V28) documented in this encounter Additional Health Concerns Infection Onset Date Last Indicated Resolved Time Tuberculosis Rule-Out 01/12/2025 01/12/20252024 7:05 PM EDT documented as of this encounter Care Teams Prep Person Relationship Specialty Start Date End Date Le Recinos DO [address] [place] [address] PCP - General 04/28/24 documented as of this encounter
--- OUTSIDE RECORDS SUMMARY | 2025-04-07 14:46 | XMS_ITS | Encounter Summary ---
Author Organization [facility] Address [address] [place] [address] Care Team Providers Care Finger Buff Sewer Name Role Phone Laurie Recinosmansasha SIDDIQUI Primary Care Provider [phone] Encounter Details Date Type Department Care Team (Latest Contact Info) Description 04/04/2025 Anticoagulation - Warfarin Visit [facility] [place] [address] Kiara Anderson LPN Deep vein thrombosis (DVT) [...] EDT Anticoagulation - Warfarin Visit Coumadin Clinic [facility] [address] [place] [address] 06/03/2025 2:45 PM EST [facility] [address] [place] [address] Aide Linares NP [address] [place] [address] documented as of this encounter Visit Diagnoses Diagnosis Deep vein thrombosis (DVT) of distal vein of left lower extremity, unspecified chronicity (CMS/HCC V24, CMS/HCC V28)- Primary Factor V Leiden mutation ([facility] V24) Primary hypercoagulable state documented in this encounter Care Teams Finger Buff Sewer Relationship Specialty Start Date End Date Le Recinos DO [address] [place] [address] PCP - General 04/28/24 documented as of this encounter
--- OUTSIDE RECORDS SUMMARY | 2025-04-07 14:46 | XMS_ITS | Encounter Summary ---
Author Organization [facility] Address [address] [place] [address] Care Team Providers Care Quartz Mounter Name Role Phone JorjeLe Primary Care Provider [phone] Encounter Details Date Type Department Care Team (Late st Contact Info) Description 10/01/2024 Lab Requisition [facility] - Main Lab [address] [place] [address] Bernadine Florez MD [address] [place], [place] [phone] Other malaise; Unspecified atrial fibrillation (CMS/HCC V24, [...] Visit Coumadin Clinic [facility] [address] [place] [address] 06/03/2025 2:45 PM EST Office Visit Internal Medicine - [facility] [address] [place] [address] Aide Linares, LEWIS [address] [place] [address] documented as of this encounter Visit Diagnoses Diagnosis Other malaise Unspecified atrial fibrillation (CMS/HCC V24, CMS/HCC V28) documented in this encounter Additional Health Concerns Infection Onset Date Last Indicated Resolved Time Tuberculosis Rule-Out 01/12/2025 01/12/20252024 7:05 PM EDT documented as of this encounter Care Teams Quartz Mounter Relationship Specialty Start Date End Date Le Recinos DO [address] [place] [address] PCP - General 04/28/24 documented as of this encounter
--- OUTSIDE RECORDS SUMMARY | 2025-04-07 14:46 | XMS_ITS | Encounter Summary ---
Author Organization [facility] Address [address] [place] [address] Care Team Providers Care Application Packager Name Role Phone JorjeLe Primary Care Provider [phone] Encounter Details Date Type Department Care Team (Late st Contact Info) Description 10/10/2024 Lab Requisition [facility] - Main Lab [address] [place] [address] Bernadine Florez MD [address] [place], [place] [id number] Other malaise; Unspecified atrial fibrillation (CMS/HCC V24, [...] EDT Anticoagulation - Warfarin Visit Coumadin Clinic [facility] [address] [place] [address] 06/03/2025 2:45 PM EST Office Visit Internal Medicine - [facility] [address] [place] [address] Aide Linares, LEWIS [address] [place] [address] documented as of this encounter Visit Diagnoses Diagnosis Other malaise Unspecified atrial fibrillation (CMS/HCC V24, CMS/HCC V28) documented in this encounter Additional Health Concerns Infection Onset Date Last Indicated Resolved Time Tuberculosis Rule-Out 01/12/2025 01/12/20252024 7:05 PM EDT documented as of this encounter Care Teams Application Packager Relationship Specialty Start Date End Date Le Recinos DO [address] [place] [address] PCP - General 04/28/24 documented as of this encounter
--- OUTSIDE RECORDS SUMMARY | 2025-04-07 14:46 | XMS_ITS | Encounter Summary ---
Author Organization [facility] Address [address] [place] [address] Care Team Providers Care Puff Iron Operator Name Role Phone JorjeLe Primary Care Provider Encounter Details Date Type Department Care Team (Late st Contact Info) Description 10/27/2024 Lab Requisition [facility] - Main Lab [address] [place] [address] Bernadine Florez MD [address] [place], [place] [phone] Unspecified atrial fibrillation (CMS/HCC V24, CMS/HCC V28) [...] Clinic [facility] [address] [place] [phone] 06/03/2025 2:45 PM EST [facility] [address] [place] [address] Aide Linares, LEWIS [address] [place] [address] documented as of this encounter Procedures Procedure Name Priority Date/Time Associated Diagnosis Comments PROTHROMBIN TIME WITH INR Routine 10/28/2024 5:32 AM EDT Unspecified atrial fibrillation (CMS/HCC) documented in this encounter Results * (ABNORMAL) Prothrombin time with INR (10/28/2024 5:32 AM EDT) Protime 25.5(H) 10.6 - 13.9 sec LAB COAGULATION METHOD 10/28/2024 10:39 AM EDT [facility] INR 2.1 LAB COAGULATION METHOD 10/28/2024 10:39 AM EDT [facility] Blood Venous blood specimen / Unknown Venipuncture / Unknown 10/28/2024 5:32 AM EDT 10/28/2024 9:27 AM EDT us Bernadine Florez MD LAB BLOOD ORDERABLES Final Resul t [facility] [address] [place] [address], documented in this encounter Visit Diagnoses Diagnosis Unspecified atrial fibrillation (CMS/HCC V24, CMS/HCC V28) documented in this encounter Additional Health Concerns Infection Onset Date Last Indicated Resolved Time Tuberculosis Rule-Out 01/12/2025 01/12/20252024 7:05 PM EDT documented as of this encounter Care Teams Puff Iron Operator Relationship Specialty Start Date End Date Le Recinos DO [address] [facility] [place] [address] PCP - General 04/28/24 documented as of this encounter
--- OUTSIDE RECORDS SUMMARY | 2025-04-07 14:46 | XMS_ITS | Encounter Summary ---
Author Organization [facility] Address [address] [place] [address] Care Team Providers Care Tool Polishing Machine Operator Name Role Phone JorjeLe Primary Care Provider [phone] Encounter Details Date Type Department Care Team (Late st Contact Info) Description 10/29/2024 Lab Requisition [facility] - Main Lab [address] [place] [address] Bernadine Florez MD [address] [place], [place] [phone] Unspecified atrial fibrillation (CMS/HCC V24, CMS/HCC V28) [...] Visit Coumadin Clinic [facility] [address] [place] [address] 06/03/2025 2:45 PM EST [facility] [address] [place] [address] Aide Linares, LEWIS [address] [place] [address] documented as of this encounter Visit Diagnoses Diagnosis Unspecified atrial fibrillation (CMS/HCC V24, CMS/HCC V28) documented in this encounter Additional Health Concerns Infection Onset Date Last Indicated Resolved Time Tuberculosis Rule-Out 01/12/2025 01/12/20252024 7:05 PM EDT documented as of this encounter Care Teams Tool Polishing Machine Operator Relationship Specialty Start Date End Date Le Recinos DO [address] [place] [address] PCP - General 04/28/24 documented as of this encounter
--- OUTSIDE RECORDS SUMMARY | 2025-04-07 14:46 | XMS_ITS | Encounter Summary ---
Author Organization [facility] Address [address] [place] [address] Care Team Providers Care Lagging Machine Operator Name Role Phone JorjeLe Primary Care Provider [phone] Encounter Details Date Type Department Care Team (Late st Contact Info) Description 10/23/2024 Lab Requisition [facility] - Main Lab [address] [place] [address] Bernadine Florez MD [address] [place], [place] [phone] Unspecified atrial fibrillation (CMS/HCC V24, CMS/HCC V28) [...] EDT Anticoagulation - Warfarin Visit Coumadin Clinic [facility] [address] [place] [phone] 06/03/2025 2:45 PM EST Office Visit Internal Medicine - [facility] [address] [place] [address] Aide Linares, LEWIS [address] [place] [address] documented as of this encounter Procedures Procedure Name Priority Date/Time Associated Diagnosis Comments PROTHROMBIN TIME WITH INR Routine 10/25/2024 6:52 AM EDT Unspecified atrial fibrillation (CMS/HCC) documented in this encounter Results * (ABNORMAL) Prothrombin time with INR (10/25/2024 6:52 AM EDT) Protime 27.0(H) 10.6 - 13.9 sec LAB COAGULATION METHOD 10/25/2024 9:52 AM EDT [facility] INR 2.2 LAB COAGULATION METHOD 10/25/2024 9:52 AM EDT [facility] Blood Venous blood specimen / Unknown Venipuncture / Unknown 10/25/2024 6:52 AM EDT 10/25/2024 9:17 AM EDT us Bernadine Florez MD LAB BLOOD ORDERABLES Final Resul t [facility] [address] [place] [address], documented in this encounter Visit Diagnoses Diagnosis Unspecified atrial fibrillation (CMS/HCC V24, CMS/HCC V28) documented in this encounter Additional Health Concerns Infection Onset Date Last Indicated Resolved Time Tuberculosis Rule-Out 01/12/2025 01/12/20252024 7:05 PM EDT documented as of this encounter Care Teams Lagging Machine Operator Relationship Specialty Start Date End Date Le Recinos DO [address] [facility] [place] [address] PCP - General 04/28/24 documented as of this encounter
== END 2025-04-07 12:36 | disposition home or self-care (01) ==
LOC: HO.MRI 12:35
PROVIDERS: Visit Provider Anesthesiology
DX: S32.010G Wedge compression fracture of first lumbar vertebra, subsequent encounter for fracture with delayed healing (principal); M47.816 Spondylosis without myelopathy or radiculopathy, lumbar region
CPT/HCPCS: 72148

== ENCOUNTER → 2025-04-07 12:46 | Outpatient (BNV) | payer BC, SELFPAY | PROVIDERS: Visit Provider Radiology Diagnostic Radiology | DX: M48.061 Spinal stenosis, lumbar region without neurogenic claudication (principal) | CPT/HCPCS: 72148 ==

== ENCOUNTER 2025-04-13 14:00 | Outpatient (AMB) | payer BC, SELFPAY ==
--- NOTE | 2025-04-13 14:06 | A.OFFVIS_ITS ---
Vital Signs 04/13/25 14:07 Weight 166 lb BP 139/64 Blood Pressure Location Lt brachial Position Sitting Respiration 18 Pulse 82 Pulse Source Pulse Oximeter Intake Visit Reasons: s/p zak Dx L2-L3-L4 MBB Ancient Art Curator Required: No Allergies No Known Allergies Allergy (Verified 04/13/25 14:06) HPI Comments Details: Sly is back in my office after diagnostic bilateral L2, L3, L4 medial branch blocks which were performed for him to diagnose the pain. Unfortunately patient reports no pain improvement at all. I examined him more thoroughly today. Attention was attracted to the fact that pain of the patient is located mostly on the right in the projection of the upper buttock. I suspected sacroiliac joint dysfunction on the right. I will schedule him for the right sacroiliac joint injection. I will try to push it through as soon as possible. The injection will be diagnostic. The MRI which he was sent last time is ready. Full description of the MRI is as below. Prior: very pleasant 74 years old gentleman who presents in my office with complains on 2 pain generators: He complains on pain in the lower lumbar spine as well as pain in the left shoulder. She reports that pain in the back is bothering him the most. He reports that shoulder pain he received steroid injection in the office and this alleviated his pain for 1 month. His most severe pain is in the lower back and this problem he wants to address today. He reports this pain is most severe with standing and walking. Denies pain increase with coughing and sneezing. He denies pelvic organ dysfunction. He is unable to do activities of daily living, he is able to sleep normally, he can take care of himself but he can not function normally. He had x-ray radiology report performed for the lumbar spine which was done on 10/01/2024. It demonstrated diffuse osteopenia chronic compression deformity at L2 severe compression deformity superior endplate at L1 mild superior endplate compression deformity at L3 which is likely chronic. There is also mild compression deformity of the superior endplate L5 diffuse degenerative changes are noted which are worse in the lower lumbar spine. He had chiropractic manipulations to help his pain he received minimal results. Also had acupuncture to treat his pain also results were minimal. He continues to home exercise program, he wants to try physical therapy Review of Systems Const All systems reviewed & are unremarkable except as noted in HPI and below ENT Reports Normal hearing present Neuro Reports Normal hearing present, Denies Abnormal speech present, Denies confusion and Denies Sensory deficit (Neuro) Psych Denies confusion Physical Exam Vital Signs: Last Vital Signs Pulse 82 04/13/25 14:07 Resp 18 04/13/25 14:07 BP 139/64 04/13/25 14:07 Const General: no acute distress; No confusion Nutritional Appearance: malnourished and underweight Orientation/consciousness: patient oriented x3 and No confusion Limitations: physical limitations, ambulation with cane and ambulation with walker Eyes General: appearance normal, both eyes and all related structures Pupils: Equal, round and reactive pupils present EOM: EOMs intact bilaterally Neck Neck: Yes full ROM Chest Chest palpation & inspection: normal inspection of the chest Resp Effort & Inspection: normal respiratory effort, able to speak in complete sentences, normal respiratory pattern, no audible wheezes and no cough Cardio Jugular venous distension: no JVD GI Inspection: Yes normal to inspection Back/Spine/Pelvis Other: Flexing forward and flexing backwards aggravate his pain. Flexing backwards agg ravate his pain more than flexing forward. Denies pelvic organ dysfunction. Valsalva maneuver is negative for pain increase. Oscar test is positive on the right, pelvic compression test and pelvic distraction test is positive on the right, yeoman's test is positive on the right, Stinchfield test is positive on the right, thigh thrust test is positive on the right. Gaenslen test is positive on the right. Neuro General: patient oriented x3, gait normal and No confusion Cranial nerves: Yes CN's II-XII intact bilaterally, Yes Equal, round and reactive pupils present, Yes Normal hearing present and Yes Ability to bilaterally elevate shoulders present Speech: No Abnormal speech present Gait exam (Neuro): Normal gait present Motor exam (neuro): 5/5 motor strength present throughout Sensory Exam: No Sensory deficit (Neuro) Extrem General: No pedal edema Psych Speech and movement: Normal speech and movement present Affect: normal affect Attitude: cooperative Thought process: Normal thought process present Thought content: Normal thought content present Insight: Good insight present (Psych) Judgement: Good judgement present (Psych) Results Reviewed Results Reviewed: MR LUMBAR SPINE WITHOUT CONTRAST CLINICAL INFORMATION: Wedge-shaped compression, L1 vertebra. COMPARISON: None available. TECHNIQUE: MRI of the lumbar spine was obtained using routine sequences without contrast. FINDINGS: Last rib-bearing vertebra labeled T12. Superior endplate compression deformity without bone marrow STIR signal abnormality, representing 60% with a 3 mm retropulsion upon central canal. Superior endplate compression deformity without bone marrow STIR signal abnormality, representing 40-50% volume loss without retropulsion at L2. Superior endplate compression deformity without bone marrow STIR signal abnormality, representing 30-40% volume loss without retropulsion at L3 vertebra. Superior endplate compression deformity without bone marrow STIR signal abnormality, representing 20% volume loss at L4 vertebra without retropulsion. Superior endplate compression deformity without bone marrow STIR signal abnormality, representing 50% volume loss at L5. No retropulsion. Superior endplate compression deformity, without bone marrow STIR signal abnormality, representing 20% volume loss at T12. No retropulsion Bone marrow inhomogeneity. No bone marrow STIR signal abnormality. Conus medullaris ends at pedicle of L1 with normal signal. T11-12: No disc herniation. No central spinal canal or neuroforamina stenosis. T12-L1: 3 mm retropulsion. Decreased AP diameter of the thecal sac. No compression upon conus medullaris. No neuroforamina stenosis. L1-2: Central marginal osteophyte formation. Reduced AP diameter of the thecal sac. No gross neuroforamina stenosis. L2-3: Broad-based disc bulging. Facet joint and ligamentum flavum hypertrophy. Reduced AP diameter of the thecal sac and bilateral neuroforamina narrowing. L3-4: Broad-based disc bulging. Facet joint and ligamentum flavum hypertrophy. Reduced AP diameter of the thecal sac and neuroforamina likely encroaching the neural limits. L4-5: Broad-based disc bulging. Facet joint and ligamentum flavum hypertrophy. Reduced AP diameter of the thecal sac and bilateral neuroforamina narrowing. L5-S1: Broad-based disc bulging. Facet joint hypertrophy. No central spinal canal stenosis. Bilateral neuroforamina narrowing without compressibility exiting nerve roots. No prevertebral compartment hematoma, mass or fluid collection.. IMPRESSION: Multilevel old likely osteoporotic compression fracture deformities throughout the vertebral bodies of the lumbar spine, the most pronounced at L1 resulting in 3 mm retropulsion. Central spinal canal stenosis at L3-4 and to a lesser extent L4-5, L2-3 on a multifactorial basis. Assessment & Plan Assessment & Plan (1) Compression fracture of L1 vertebra with delayed healing: Code(s): S32.010G - Wedge compression fracture of first lumbar vertebra, subsequent encounter for fracture with delayed healing Category: Medical (2) Spondylosis without myelopathy or radiculopathy, lumbar region: Code(s): M47.816 - Spondylosis without myelopathy or radiculopathy, lumbar region Category: Medical (3) Chronic pain syndrome: Code(s): G89.4 - Chronic pain syndrome Category: Medical (4) Osteoporosis: Code(s): M81.0 - Age-related osteoporosis without current pathological fracture Category: Medical (5) Sacroiliitis: Code(s): M46.1 - Sacroiliitis, not elsewhere classified Category: Medical (6) Sacroiliac joint dysfunction of right side: Code(s): M53.3 - Sacrococcygeal disorders, not elsewhere classified Category: Medical Plan MRI dictation is as above, none of his compression fractures are acute all of the MRI old. Therefore his pain is not coming from the VCF. Diagnostic medial branch block performed 2 days ago resulted in no pain improvement at all. Therefore the pain is not coming from the facet joints. There is no nerve root compressions of the MRI as well. Therefore it is not radiculopathy. Attention is attracted to signs and symptoms of sacroiliitis on physical exam dictated as above. I will schedule him for the right sacroiliac joint diagnostic injection. I will evaluate this patient's pain couple of days after the injection. He is asking me currently to help him with the pain meanwhile. I recommended him to try [id number] lidocaine patches. He stated that he tried lidocaine patches and they did not stick in. I told him that I will try to prescribe some adhesive films such as Tegaderm to help to keep the patch on for 12 hours. Patient Instructions: I hereby testify that I spent 32 minutes in conversation with this patient as well as planning his care and organizing this note. Coding Level of Care Code Est Pt Level 4 (13435) Diagnoses Compression fracture of L1 vertebra with delayed healing S32.010G Spondylosis without myelopathy or radiculopathy, lumbar region M47.816 Chronic pain syndrome G89.4 Osteoporosis M81.0 Sacroiliitis M46.1 Sacroiliac joint dysfunction of right side M53.3
[2025-04-13 14:07] VITALS: BP 139/64; PULSE 82; RESP 18
--- OUTSIDE RECORDS SUMMARY | 2025-04-13 16:29 | XMS_ITS | Clinical Summary ---
Author Organization [facility] Address [address] [place] [address] Care Team Providers Care Water Resources Business Segment Leader Name Role Phone Caterina Sena MD [...] age to complete this topic Care Teams Water Resources Business Segment Leader Relationship Specialty Start Date End Date Caterina Sena MD PCP - General Family Medicine 04/07/23
== END 2025-04-13 14:36 | disposition home or self-care (01) ==
LOC: HO.PMC 14:01
PROVIDERS: Visit Provider Anesthesiology
DX: M47.816 Spondylosis without myelopathy or radiculopathy, lumbar region (principal); G89.4 Chronic pain syndrome; M81.0 Age-related osteoporosis without current pathological fracture; M46.1 Sacroiliitis, not elsewhere classified; M53.3 Sacrococcygeal disorders, not elsewhere classified
CPT/HCPCS: 99214

== ENCOUNTER 2025-05-17 06:25 | Outpatient (REF) | payer BC, SELFPAY ==
--- OUTSIDE RECORDS SUMMARY | 2025-04-28 14:30 | XMS_ITS | Encounter Summary ---
Author Organization [facility] Address [address] [place] [address] Care Team Providers Care Electronic News Gathering Camera Person Name Role Phone JorjeLe Primary Care Provider [phone] Encounter Details Date Type Department Care Team (Latest Contact Info) Description 04/28/2025 2:30 PM EDT Anticoagulation - Warfarin Visit [facility] [place] [phone] Deep vein thrombosis (DVT) of distal vein [...] Safety Answer Date Record ed Physical Abuse Unrecognized value 01/12/2025 Verbal Abuse Unrecognized value 01/12/2025 Sex and Gender Information Value Date Recorded Sex Assigned at Male 10/12/2024 11:57 AM EDT Legal Sex Male 3:08 AM EST Gender Identity Male 10/12/2024 11:57 AM EDT Sexual Orientation Not on file documented as of this encounter Progress Notes * Divina Lozoya LPN - 04/28/2025 2:30 PM EDT Recheck 1 week Divina Lozoya LPN Patient declines. 05/17/2025 Injection back hold x 5 days needs Lovenox bridge Last dose 04/10/2025 recheck Inr 04/13/2025 lab in am. Divina Lozoya LPN Anticoagulation Summary As of 04/28/2025 INR goal: 2.0-3.0 TTR: 63.0% (8.9 mo) INR used for dosin.4 (04/28/2025) Warfarin maintenance plan: 2.5 mg (5 mg x 0.5) every Mon, Wed; 5 mg (5 mg x 1) all other days Weekly warfarin total: 30 mg Plan last modified: Divina Lozoya LPN (04/28/2025) Next INR check: 05/05/2025 Priority: Maintenance Target end date: -- Indications DVT of leg (deep venous thrombosis) (CMS/HCC V24 CMS/HCC V28) [I82.409] Factor V Leiden mutation (CMS/HCC V24) [D68.51] Anticoagulation Episode Summary INR check location: Anticoagulation Clinic Preferred lab: -- Send INR reminders to: [facility] POOL Comments: -- Anticoagulation Care Providers Provider Role Specialty Phone number Le Recinos DO [facility] Internal Medicine [phone] Patient presents for follow-up of ongoing Warfarin therapy. Patient had his INR drawn via A/C Clinic Draw. Patient denies any significant issues with adherence to the medication regimen. Patient denies experiencing any symptoms of bleeding, such as unusual bruising, nosebleeds, hematuria, or melena. Patient reports feeling generally well and denies any new complaints. Plan of care: New warfarin dose: No change Warfarin education of dietary considerations, medication/supplement interactions, and the need to continue avoiding activities that increase the risk of injury or bleeding reinforced. Patient verbalized understanding of ongoing INR monitoring and dosage change. Patient is aware of the signs of potential complications and knows to contact the clinic if they occur. Anticoagulation Flowsheet updated with new plan of care. Plan discussed with provider, no additional changes at this time. Anticoagulation Clinic Protocol Dose Type Dose Range INR Dose Adjustment # Doses Omitted Recheck Date Mini Dose 1.4-2.0 Very Low <1.2 Consult Provider 0 1 week Low 1.2-1.4 If singular event - no change If 2 in a row or 2 of the last 3 - Increase weekly dose by 10% 0 1 week In Range 1.4-2.0 No adjustment 0 1-4 weeks* High 2.0-3.0 If singular event - no change If 2 in a row or 2 of the last 3 - Decrease weekly dose by 10% 0 1 week Very High >3.0 Consult Provider 2 2 days If OK after 2 days - Decrease weekly dose by 10% 0 1 week Usual Dose 2.0-3.0 Very Low <1.5 Consult Provider 0 1 week Low 1.5-2.0 If singular event - No change If 2 in a row or 2 of the last 3 - Increase weekly dose by 10% 0 1 week In Range 2.0-3.0 No Adjustment 0 1-4 weeks* High >3.0-3.5 If singular event - No change If 2 in a row or 2 of the last 3 - Decrease weekly dose by 10% 0 1 week Very High >3.5-4.0 Consult Provider 1 2 days >4.0 Consult Provider 2 2 days If OK after 2 days - Decrease weekly dose by 10% 0 1 week Mechanical Valve 2.5-3.5 Very Low <1.5 Consult Provider 0 1 week Low 1.5-2.5 If singular event - No change If 2 in a row or 2 of the last 3 - Increase weekly dose by 10% 0 1 week In Range 2.5-3.5 No Adjustment 0 1-4 weeks* High >3.5-4.0 If singular event - No change If 2 in a row or 2 of the last 3 - Decrease weekly dose by 10% 0 1 week Very High >4.0-4.9 Consult Provider 1 2 days >5.0 Consult Provider 2 2 days If OK after 2 days - Decrease weekly dose by 10% 0 1 week * In range 1 week = recheck in 1 week In range 2 weeks = recheck in 2 weeks In range 3 weeks = recheck in 3 weeks In range 4 weeks = recheck in 4 weeks Cosigned by Bobby Mayfield NP at 04/28/2025 6:42 PM EDT documented in this encounter Plan of Treatment Upcoming Encounters Date Type Department Care Team (Late st Contact Info) Description 06/03/2025 2:45 PM EST [facility] [address] [place] [address] Aide Linares NP [address] [place] [address] documented as of this encounter Procedures Procedure Name Priority Date/Time Associated Diagnosis Comments POC PROTIME INR BLOOD Routine 04/28/2025 2:28 PM EDT Deep vein thrombosis (DVT) of distal vein of left lower extremity, unspecified chronicity (CMS/HCC V24, CMS/HCC V28) Factor V Leiden mutation (CMS/HCC V24) documented in this encounter Results * POC Protime INR Blood (04/28/2025 2:28 PM EDT) Lot Number INR POC 2.4 Prothrombin Time POC Exp Date Blood 04/28/2025 2:28 PM EDT Bobby Mayfield NP POINT OF CARE TEST ENTER/EDIT ORDERABLES Final Result documented in this encounter Visit Diagnoses Diagnosis Deep vein thrombosis (DVT) of distal vein of left lower extremity, unspecified chronicity (CMS/HCC V24, CMS/HCC V28)- Primary Factor V Leiden mutation (CMS/HCC V24) Primary hypercoagulable state documented in this encounter Care Teams Electronic News Gathering Camera Person Relationship Specialty Start Date End Date Le Recinos DO [address] [place] [address] PCP - General 04/28/24 documented as of this encounter
--- NOTE | ~2025-05-17 | FL_ITS ---
EXAMINATION: FLUOROSCOPY GUIDANCE FOR NEEDLE PLACEMENT CLINICAL INFORMATION: M46.1 - Sacroiliitis, not elsewhere classified COMPARISON: None available. TECHNIQUE: Fluoroscopy guidance for pain management procedure FINDINGS: Images demonstrate needle placement and contrast injection over the right sacrum. See procedure note for detailed findings. FLUOROSCOPY TIME: 14 seconds. 2 submitted images. Dose: 81 uGy-m2 (microgray-meter squared) FL/FL guidance in treatment room IMPRESSION: Fluoroscopy guidance for pain management procedure. Electronically signed by: Yamel Lind MD 05/17/2025 03:53 PM EDT
--- OUTSIDE RECORDS SUMMARY | 2025-05-17 06:29 | XMS_ITS | Encounter Summary ---
Author Organization [facility] Address [address] [place] [address] Care Team Providers Care Batch Attendant Name Role Phone JorjeLe Primary Care Provider [phone] Encounter Details Date Type Department Care Team (Late st Contact Info) Description 10/27/2024 Lab Requisition [facility] - Main Lab [address] [place] [address] Bernadine Florez MD [address] [place], [place] [phone] Unspecified atrial fibrillation (CMS/HCC V24, CMS/HCC V28) Social History Tobacco Use Types Packs/Day Years Used Date Smoking Tobacco: Former Cigarettes 2 60.8 0 08/18/1962 - 05/20/2023 Smokeless Tobacco: Never Alcohol Use Standard Drinks/Week Comments Not Currently 0 (1 standard drink = 0.6 oz pur e alcohol) Interpersonal Safety Answer Date Record ed Physical Abuse Unrecognized value 08/29/2024 Verbal Abuse Unrecognized value 08/29/2024 Sex and Gender Information Value Date Recorded Sex Assigned at Male 10/12/2024 11:57 AM EDT Legal Sex Male 3:08 AM EST Gender Identity Male 10/12/2024 11:57 AM EDT Sexual Orientation Not on file documented as of this encounter Plan of Treatment Upcoming Encounters Date Type Department Care Team (Late st Contact Info) Description 06/03/2025 2:45 PM EST [facility] [address] [place] [address] Aide Linares NP [address] [place] [address] documented as of this encounter Procedures Procedure Name Priority Date/Time Associated Diagnosis Comments PROTHROMBIN TIME WITH INR Routine 10/28/2024 5:32 AM EDT Unspecified atrial fibrillation (CMS/HCC) documented in this encounter Results * (ABNORMAL) Prothrombin time with INR (10/28/2024 5:32 AM EDT) Protime 25.5(H) 10.6 - 13.9 sec LAB COAGULATION METHOD 10/28/2024 10:39 AM EDT [facility] INR 2.1 LAB COAGULATION METHOD 10/28/2024 10:39 AM EDT [facility] Blood Venous blood specimen / Unknown Venipuncture / Unknown 10/28/2024 5:32 AM EDT 10/28/2024 9:27 AM EDT us Bernadine Florez MD LAB BLOOD ORDERABLES Final Resul t [facility] [address] [place] [address], documented in this encounter Visit Diagnoses Diagnosis Unspecified atrial fibrillation (CMS/HCC V24, CMS/HCC V28) documented in this encounter Additional Health Concerns Infection Onset Date Last Indicated Resolved Time Tuberculosis Rule-Out 01/12/2025 01/12/20252024 7:05 PM EDT documented as of this encounter Care Teams Batch Attendant Relationship Specialty Start Date End Date Le Recinos DO [address] [place] [address] PCP - General 04/28/24 documented as of this encounter
--- OUTSIDE RECORDS SUMMARY | 2025-05-17 06:29 | XMS_ITS | Encounter Summary ---
Author Organization [facility] Address [address] [place] [address] Care Team Providers Care Roustabout Crew Pusher Name Role Phone Jorje Le Primary Care Provider [phone] Reason for Visit * Reason Onset Date Comments Procedure 04/29/2025 05/17/2025 RIGHT DIAGNOSTIC SIJ LOVENOX BRDIGE Encounter Details Date Type Department Care Team (Late st Contact Info) Description 04/29/2025 Telephone Coumadin Clinic [address] [address] Divina Lozoya LPN Social History Tobacco Use Types Packs/Day Years [...] as of this encounter Progress Notes * Le Recinos DO - 04/29/2025 9:06 AM EDT I agree. * Divina Lozoya LPN - 04/29/2025 8:50 AM EDT Please review Lovenox Documentation Patient Name: Sly Joy Date of Order: 04/29/2025 Ordering Provider: Le Recinos DO Medication Dosage: 70 MG Route: SQ Frequency: EVERY 12 HOURS Desired INR Range: 2.00-3.00 Reason for Lovenox: procedure Diagnosis requiring Anticoagulation: FACTOR V LEIDEN DVT LLE Patient to remain on Lovenox until they achieve therapeutic INR range Procedure Information Name of Procedure: Right diagnostic S I J injection Date of Procedure: 05/17/2025 Date the Patient is to take the last dose of Coumadin: 05/10/2025 Date INR to be checked: 05/13/2025 Lovenox to begin when INR is in the following range: less than 2.00 Last Lovenox dose to be given on 05/16/2025 am *INR to be checked daily until level requiring Lovenox is reached Post Procedure Information Patient to resume Coumadin on 05/17/2025 Patient to resume Coumadin at the following dose: 7.5 mg x 3 days Lovenox to start on 05/18/2025 until INR reaches a range of 2.00-3.00 After desired range is reached INR frequencies will be determined by anticoagulation clinic INR 05/19/3025 documented in this encounter Plan of Treatment Upcoming Encounters Date Type Department Care Team (Late st Contact Info) Description 06/03/2025 2:45 PM EST Office Visit [facility] - [facility] [address] [facility] [place] [address] Aide Linares, LEWIS [address] [place] [address] documented as of this encounter Visit Diagnoses Not on filedocumented in this encounter Care Teams Roustabout Crew Pusher Relationship Specialty Start Date End Date Le Recinos DO [address] [place], [place] [address] [place] [address] PCP - General 04/28/24 documented as of this encounter
--- OUTSIDE RECORDS SUMMARY | 2025-05-17 06:29 | XMS_ITS ---
Author Organization [place] [address] [address] [facility] Address [address] [place] [phone] Phone Care Team Providers Care Steeping Press Operator Name Role Phone Le Recinos DO Primary Care Provider [phone] Active Problems Problem Noted Date Diagnosed Date [...] Z-Savage. Squamous cell carcinoma lung , left (CMS/[facility] V24, CMS/[facility] V28) 06/30/2023 Overview (05/31/2024): 04/30/2023 [...] I explained how the size, shape, and plant changer time affect her level of suspicion [...] that I will have him see his reinstatement clerk for a risk assessment as well as a expeller operator to give recommendations around anticoagulation around surgery. He certainly will have to stop his Coumadin 5 days prior to operation but the question of a bridge or what to bridge with. Aortic root dilatation (CMS/HCC V24) 01/24/2023 Coronary artery disease invo lving [place] coronary artery of [place] heart without angina pectoris 06/20/2022 Mixed hyperlipidemia 06/20/2022 Primary hypertension 04/23/2022 Coronary artery disease due to calcified coronar y lesion 03/18/2022 Lab test positive for detection of COVID-19 viru s 07/11/2021 Overview (05/31/2024): 07/03/21, [facility] 07/03/21 Thoracic aortic aneurysm (CMS/HCC V24) Elevated LFTs 11/27/2020 IBS (irritable bowel syndrome) 02/03/2020 Overview (05/31/2024): Diarrhea predominant Chronic diarrhea 12/23/2019 Fatty liver 07/09/2019 Nephrolithiasis 07/09/2019 Diplopia 06/26/2017 Overview (05/31/2024): 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 Neg CN 2004. Small polyps x 2 at CN 05/13/2011: Pathology report: Tubular adenomas x 2. 2 polyps 05/09; repeat due 2024 Factor V Leiden mutation ([facility] V24) 1 Overview (05/31/2024): heterozygous DVT of leg (deep venous thro mbosis) ([facility] [place]24, [facility] V28) 10/03/2010 Heartburn 10/10/2009 Tobacco use disorder 08/25/2008 Cervical disc displacement 03/09/2008 Migraine with aura 07/05/2005 Overview (05/31/2024): Onset in teens, better as an adult. Current Treatment and Therapy Plans No current plan information found. Past Treatment and Therapy Plans No past plan information found. Lifetime Dose Tracking * Chemical Lifetime Dose Automatic Entry Manual Entr y Fluoro Time 3.58 minutes 3.58 minutes 0 minutes Air Kerma 191.7 mGy 191.7 mGy 0 mGy Resolved Problems Problem Noted Date Diagnosed Date Resolved Date SBO (small bowel obstruction ) ([facility] [place]24, [facility] V28) 08/29/2024 09/16/2024
--- OUTSIDE RECORDS SUMMARY | 2025-05-17 06:29 | XMS_ITS | Encounter Summary ---
Author Organization [facility] Address [address] [place] [address] Care Team Providers Care Computer Engineering Technician Name Role Phone JorjeLe Primary Care Provider [phone] Encounter Details Date Type Department Care Team (Late st Contact Info) Description 09/29/2024 Lab Requisition [facility] - Main Lab [address] [place] [address] Bernadine Florez MD [address] [place], [place] [id number] Unspecified atrial fibrillation (CMS/HCC V24, CMS/HCC V28) [...] PM EST [facility] [address] [place] [address] Aide Linares NP [address] [place] [address] documented as of this encounter Procedures Procedure Name Priority Date/Time Associated Diagnosis Comments PROTHROMBIN TIME WITH INR Routine 09/30/2024 6:25 AM EDT Unspecified atrial fibrillation (CMS/HCC) documented in this encounter Results * (ABNORMAL) Prothrombin time with INR (09/30/2024 6:25 AM EDT) Protime 38.4(H) 10.6 - 13.9 sec LAB COAGULATION METHOD 09/30/2024 9:22 AM EDT [facility] INR 3.1 LAB COAGULATION METHOD 09/30/2024 9:22 AM EDT [facility] Blood Venous blood specimen / Unknown Venipuncture / Unknown 09/30/2024 6:25 AM EDT 09/30/2024 8:46 AM EDT us Bernadine Florez MD LAB BLOOD ORDERABLES Final Resul t [facility] [address] [place] [address], documented in this encounter Visit Diagnoses Diagnosis Unspecified atrial fibrillation (CMS/HCC V24, CMS/HCC V28) documented in this encounter Additional Health Concerns Infection Onset Date Last Indicated Resolved Time Tuberculosis Rule-Out 01/12/2025 01/12/20252024 7:05 PM EDT documented as of this encounter Care Teams Computer Engineering Technician Relationship Specialty Start Date End Date Le Recinos DO [address] [place] [address] PCP - General 04/28/24 documented as of this encounter
--- OUTSIDE RECORDS SUMMARY | 2025-05-17 06:29 | XMS_ITS | Encounter Summary ---
Author Organization [facility] Address [address] [place] [address] Care Team Providers Care Automotive Quality Manager Name Role Phone FerozLe gomes Primary Care Provider [phone] Encounter Details Date Type Department Care Team (Late st Contact Info) Description 09/20/2024 Lab Requisition [facility] - Main Lab [address] [place] [address] Bernadine Florez MD [address] [place], [place] [id number] nursing home (current) use of anticoagulants; Unspecified Escherichia coli [...] Office Visit Internal Medicine - [facility] [address] [facility] [place] [address] Aide Linares, LEWIS [address] [place] [address] documented as of this encounter Procedures Procedure Name Priority Date/Time Associated Diagnosis Comments PROTHROMBIN TIME WITH INR Routine 09/20/2024 7:20 AM EST data entry manager (current) use of anticoagulants Unspecified Escherichia coli (E. coli) as the cause of diseases classified elsewhere COMPLETE BLOOD COUNT Routine 09/20/2024 7:20 AM EST nursing home (current) use of anticoagulants Unspecified Escherichia coli (E. coli) as the cause of diseases classified elsewhere COMPREHENSIVE METABOLIC PANEL Routine 09/20/2024 7:20 AM EST nursing home (current) use of anticoagulants Unspecified Escherichia coli (E. coli) as the cause of diseases classified elsewhere documented in this encounter Results * (ABNORMAL) Prothrombin time with INR (09/20/2024 7:20 AM EST) Protime 17.7(H) 10.6 - 13.9 sec LAB COAGULATION METHOD 09/20/2024 11:50 AM EST [facility] INR 1.4 LAB COAGULATION METHOD 09/20/2024 11:50 AM EST [facility] Blood Venous blood specimen / Unknown Venipuncture / Unknown 09/20/2024 7:20 AM EST 09/20/2024 10:54 AM EST us Bernadine Florez MD LAB BLOOD ORDERABLES Final Resul t [facility] [address] [place] [address], * (ABNORMAL) Comprehensive metabolic panel (09/20/2024 7:20 AM EST) Sodium 136 133 - 145 mmol/L LAB CHEMISTRY METHOD 09/20/2024 12:18 PM [facility] Potassium 3.9 3.5 - 5.5 mmol/L LAB CHEMISTRY METHOD 09/20/2024 12:18 PM [facility] Chloride 101 96 - 110 mmol/L LAB CHEMISTRY METHOD 09/20/2024 12:18 PM [facility] CO2 25 21 - 32 mmol/L LAB CHEMISTRY METHOD 09/20/2024 12:18 PM [facility] Anion Gap 10 3 - 11 LAB CHEMISTRY METHOD 09/20/2024 12:18 PM [facility] Glucose 99 70 - 100 mg/dL LAB CHEMISTRY METHOD 09/20/2024 12:18 PM [facility] BUN 20 5 - 25 mg/dL LAB CHEMISTRY METHOD 09/20/2024 12:18 PM [facility] Creatinine 0.81 0.70 - 1.30 mg/dL LAB CHEMISTRY METHOD 09/20/2024 12:18 PM [facility] eGFR 93 >=60 mL/min/1. 73m2 LAB CHEMISTRY METHOD 09/20/2024 12:18 PM [facility] Comment:Calculation based on the Chronic Kidney Disease Epidemiology Collaboration (CKD-EPI) equation refit without adjustment for race. BUN/Creatinine Ratio 24.7 LAB CHEMISTRY METHOD 09/20/2024 12:18 PM [facility] Calcium 9.1 8.5 - 10.5 mg/dL LAB CHEMISTRY METHOD 09/20/2024 12:18 PM [facility] AST (SGOT) 32 10 - 42 unit/L LAB CHEMISTRY METHOD 09/20/2024 12:18 PM [facility] ALT (SGPT) 28 10 - 60 unit/L LAB CHEMISTRY METHOD 09/20/2024 12:18 PM [facility] Alkaline Phosphatase 426(H) 42 - 121 unit/L LAB CHEMISTRY METHOD 09/20/2024 12:18 PM [facility] Total Protein 7.1 6.0 - 8.0 g/dL LAB CHEMISTRY METHOD 09/20/2024 12:18 PM [facility] Albumin 3.2 3.2 - 5.0 g/dL LAB CHEMISTRY METHOD 09/20/2024 12:18 PM [facility] Total Bilirubin 0.8 0.0 - 1.4 mg/dL LAB CHEMISTRY METHOD 09/20/2024 12:18 PM [facility] Blood Venous blood specimen / Unknown Venipuncture / Unknown 09/20/2024 7:20 AM EST 09/20/2024 10:54 AM EST us Bernadine Florez MD LAB BLOOD ORDERABLES Final Resul t [facility] [address] [place] [address], * (ABNORMAL) Complete blood count (09/20/2024 7:20 AM EST) WBC 8.1 4.8 - 10.8 K/mcL LAB HEMETOLOGY METHOD 09/20/2024 11:50 AM [facility] RBC 4.00(L) 4.50 - 5.50 M/mcL LAB HEMETOLOGY METHOD 09/20/2024 11:50 AM [facility] Hemoglobin 11.4(L) 13.5 - 17.5 g/dL LAB HEMETOLOGY METHOD 09/20/2024 11:50 AM [facility] Hematocrit 36.6(L) 42.0 - 54.0 % LAB HEMETOLOGY METHOD 09/20/2024 11:50 AM EST [facility] MCV 91.3 79.0 - 98.0 FL LAB HEMETOLOGY METHOD 09/20/2024 11:50 AM [facility] MCH 28.4 27.0 - 32.0 pcg LAB HEMETOLOGY METHOD 09/20/2024 11:50 AM [facility] MCHC 31.1(L) 32.0 - 37.0 g/dL LAB HEMETOLOGY METHOD 09/20/2024 11:50 AM [facility] RDW 14.5 11.0 - 15.0 % LAB HEMETOLOGY METHOD 09/20/2024 11:50 AM [facility] Platelets 263 130 - 400 K/mcL LAB HEMETOLOGY METHOD 09/20/2024 11:50 AM [facility] MPV 10.2 7.0 - 11.0 FL LAB HEMETOLOGY METHOD 09/20/2024 11:50 AM [facility] NRBC 0.0 <1.0 % LAB HEMETOLOGY METHOD 09/20/2024 11:50 AM [facility] NRBC Absolute 0.00 <0.10 K/mcL LAB HEMETOLOGY METHOD 09/20/2024 11:50 AM [facility] Blood Venous blood specimen / Unknown Venipuncture / Unknown 09/20/2024 7:20 AM EST 09/20/2024 10:54 AM EST us Bernadine Florez MD LAB BLOOD ORDERABLES Final Resul t [facility] [address] [place] [address], documented in this encounter Visit Diagnoses Diagnosis nursing home (current) use of anticoagulants Long-term (current) use of anticoagulants Unspecified Escherichia coli (E. coli) as the cause of diseases classified elsewhere documented in this encounter Additional Health Concerns Infection Onset Date Last Indicated Resolved Time Tuberculosis Rule-Out 01/12/2025 01/12/20252024 7:05 PM EDT documented as of this encounter Care Teams Automotive Quality Manager Relationship Specialty Start Date End Date Le Recinos DO [address] [place] [address] PCP - General 04/28/24 documented as of this encounter
--- OUTSIDE RECORDS SUMMARY | 2025-05-17 06:29 | XMS_ITS | Encounter Summary ---
Author Organization [facility] Address [address] [place] [address] Care Team Providers Care Slip Filler Name Role Phone FerozLe gomes Primary Care Provider [phone] Encounter Details Date Type Department Care Team (Late st Contact Info) Description 10/10/[address] [facility] - Main Lab [address] [place] [phone] Bernadine Florez MD [address] [place] [address] Other malaise; Unspecified atrial fibrillation (CMS/HCC V24, [...] Office Visit Internal Medicine - [facility] [address] [facility] [place] [phone] Aide Linares, LEWIS [address] [place] [address] documented as of this encounter Procedures Procedure [...] LAB COAGULATION METHOD 10/11/2024 11:33 AM EDT [facility] INR 1.4 LAB COAGULATION METHOD 10/11/2024 11:33 AM EDT [facility] Blood Venous blood specimen / Unknown Venipuncture / Unknown 10/11/2024 6:48 AM EDT 10/11/2024 10:24 AM EDT us Bernadine Florez MD LAB BLOOD ORDERABLES Final Resul t [facility] [address] [place] [address], * (ABNORMAL) Basic metabolic panel (10/11/2024 6:48 AM EDT) Sodium 139 133 - 145 mmol/L LAB CHEMISTRY METHOD 10/11/2024 12:02 PM [facility] Potassium 4.0 3.5 - 5.5 mmol/L LAB CHEMISTRY METHOD 10/11/2024 12:02 PM [facility] Chloride 105 96 - 110 mmol/L LAB CHEMISTRY METHOD 10/11/2024 12:02 PM [facility] CO2 24 21 - 32 mmol/L LAB CHEMISTRY METHOD 10/11/2024 12:02 PM [facility] Anion Gap 10 3 - 11 LAB CHEMISTRY METHOD 10/11/2024 12:02 PM [facility] Glucose 100 70 - 100 mg/dL LAB CHEMISTRY METHOD 10/11/2024 12:02 PM [facility] BUN 18 5 - 25 mg/dL LAB CHEMISTRY METHOD 10/11/2024 12:02 PM [facility] Creatinine 0.68(L) 0.70 - 1.30 mg/dL LAB CHEMISTRY METHOD 10/11/2024 12:02 PM [facility] eGFR 98 >=60 mL/min/1. 73m2 LAB CHEMISTRY METHOD 10/11/2024 12:02 PM [facility] Comment:Calculation based on the Chronic Kidney Disease Epidemiology Collaboration (CKD-EPI) equation refit without adjustment for race. BUN/Creatinine Ratio 26.5 LAB CHEMISTRY METHOD 10/11/2024 12:02 PM [facility] Calcium 9.5 8.5 - 10.5 mg/dL LAB CHEMISTRY METHOD 10/11/2024 12:02 PM [facility] Blood Venous blood specimen / Unknown Venipuncture / Unknown 10/11/2024 6:48 AM EDT 10/11/2024 10:23 AM EDT us Bernadine Florez MD LAB BLOOD ORDERABLES Final Resul t [facility] [address] [place] [address], * (ABNORMAL) Complete blood count (10/11/2024 6:48 AM EDT) WBC 5.7 4.8 - 10.8 K/mcL LAB HEMETOLOGY METHOD 10/11/2024 11:52 AM EDT [facility] RBC 4.00(L) 4.50 - 5.50 M/mcL LAB HEMETOLOGY METHOD 10/11/2024 11:52 AM EDT [facility] Hemoglobin 11.1(L) 13.5 - 17.5 g/dL LAB HEMETOLOGY METHOD 10/11/2024 11:52 AM EDT [facility] Hematocrit 34.7(L) 42.0 - 54.0 % LAB HEMETOLOGY METHOD 10/11/2024 11:52 AM EDT [facility] MCV 87.0 79.0 - 98.0 FL LAB [facility]OLOGY [facility]CH 27.8 27.0 - 32.0 pcg LAB HEMETOLOGY METHOD 10/11/2024 11:52 AM EDT [facility] MCHC 32.0 32.0 - 37.0 g/dL LAB HEMETOLOGY METHOD 10/11/2024 11:52 AM EDT [facility] RDW 13.7 11.0 - 15.0 % LAB [facility]OLOGY [facility]11[facility]24 [facility] Plate[facility] 233 130 - 400 K/mcL LAB HEMETOLOGY METHOD 10/11/2024 11:52 AM EDT [facility] MPV 10.0 7.0 - 11.0 FL LAB HEMETOLOGY METHOD 10/11/2024 11:52 AM EDT [facility] NRBC 0.0 <1.0 % LAB HEMETOLOGY METHOD 10/11/2024 11:52 AM EDT [facility] NRBC Absolute 0.00 <0.10 K/mcL LAB HEMETOLOGY METHOD 10/11/2024 11:52 AM EDT [facility] Blood Venous blood specimen / Unknown Venipuncture / Unknown 10/11/2024 6:48 AM EDT 10/11/2024 10:23 AM EDT us Bernadine Florez MD LAB BLOOD ORDERABLES Final Resul t [facility] [address] [place] [address], documented in this encounter Visit Diagnoses Diagnosis Other malaise Unspecified atrial fibrillation (CMS/HCC V24, CMS/HCC V28) documented in this encounter Additional Health Concerns Infection Onset Date Last Indicated Resolved Time Tuberculosis Rule-Out 01/12/2025 01/12/20252024 7:05 PM EDT documented as of this encounter Care Teams Slip Filler Relationship Specialty Start Date End Date Le Recinos DO [address] [place] [address] PCP - General 04/28/24 documented as of this encounter
--- OUTSIDE RECORDS SUMMARY | 2025-05-17 06:29 | XMS_ITS | Encounter Summary ---
Author Organization [facility] Address [address] [place] [address] Care Team Providers Care Septic Tank Cleaner Name Role Phone Jorje Le Primary Care Provider [phone] Encounter Details Date Type Department Care Team (Latest Contact Info) Description 05/13/2025 Anticoagulation - Warfarin Visit Coumadin Clinic - [address] [phone] Christiana Lozoya LPN Deep vein thrombosis (DVT) of distal vein of left lower extremity, unspecified chronicity (CMS/HCC V24, CMS/HCC V28) (Primary Dx); Factor V Leiden mutation ([facility]/HCC V24) Social History Tobacco Use Types Packs/Day [...] as of this encounter Progress Notes * Christiana Lozoya LPN - 05/13/2025 2:24 PM EDTAddended by: CHRISTIANA LOZOYA on: 05/13/2025 02:54 PM Modules accepted: Level of Service * Christiana Lozoya LPN - 05/13/2025 2:24 PM EDT Anticoagulation Summary As of 05/13/2025 INR goal: 2.0-3.0 TTR: 65.0% (9.4 mo) INR used for dosin.5 (05/13/2025) Warfarin maintenance plan: 2.5 mg (5 mg x 0.5) every Mon, Wed; 5 mg (5 mg x 1) all other days Weekly warfarin total: 30 mg No change documented: Christiana Lozoya LPN Plan last modified: Christiana Lozoya LPN (04/28/2025) Next INR check: 05/19/2025 Priority: Maintenance Target end date: -- Indications DVT of leg (deep venous thrombosis) ([facility]/HCC V24 CMS/HCC V28) [I82.409] Factor V Leiden mutation ([facility]/HCC V24) [D68.51] Anticoagulation Episode Summary INR check location: Anticoagulation Clinic Preferred lab: -- Send INR reminders to: [facility] ANTICOAGULATION POOL Comments: -- Anticoagulation Care Providers Provider Role Specialty Phone number Le Recinos DO [facility] Internal Medicine [phone] Patient presents for follow-up of ongoing Warfarin therapy. Patient had his INR drawn via Lab Draw.Patient denies any significant issues with adherence to the medication regimen. Patient denies experiencing any symptoms of bleeding, such as unusual bruising, nosebleeds, hematuria, or melena. Patient reports feeling generally well and denies any new complaints. Plan of care: New warfarin dose: Lovenox bridge pre post instructions Warfarin education of dietary considerations, medication/supplement interactions, [...] = recheck in 4 weeks Cosigned by Le Recinos DO at 05/13/2025 3:19 PM EDT documented in this encounter Plan of Treatment Upcoming Encounters Date Type Department Care Team (Late st Contact Info) Description 06/03/2025 2:45 PM EST Office Visit Internal Medicine - [facility] [address] [place], [place] [phone] Aide Linares, LEWIS [address] [place] [address] documented as of this encounter Visit Diagnoses Diagnosis Deep vein thrombosis (DVT) of distal vein of left lower extremity, unspecified chronicity (CMS/HCC V24, CMS/HCC V28)- Primary Factor V Leiden mutation (CMS/HCC V24) Primary hypercoagulable state documented in this encounter Care Teams Septic Tank Cleaner Relationship Specialty Start Date End Date Le Recinos DO [address] [place] [address] PCP - General 04/28/24 documented as of this encounter
--- OUTSIDE RECORDS SUMMARY | 2025-05-17 06:29 | XMS_ITS | Encounter Summary ---
Author Organization [facility] Address [address] [place] [address] Care Team Providers Care Greens Tier Name Role Phone Le Recinos DO Primary Care Provider [phone] Reason for Visit * Reason Onset Date Comments Anticoagulation 05/12/2025 Encounter Details Date Type Department Care Team ([facility] st Contact Info) Description 05/12/2025 Telephone Internal Medicine - [facility] [address] [place] [address] Le Recinos DO [address] [place] [address] Social History Tobacco Use Types Packs/Day Years [...] as of this encounter Progress Notes * Rejicourtney Venegas - 05/12/2025 11:26 AM EDT Anticoagulation Patient Call Primary Care Provider: Dr Le Recinos Is the PCP in the office toady?: no Who is calling? The patient. If not the patient or parent/guardian please check for authorization to share/verbal release. Why is the person calling? Any other question or concern - Route to COUMADIN CLINIC CLINICAL POOL. Pt wants to know when to stop coumadin as he has an upcoming injection 05-17-25 in pain management and they want him off of this med and he also needs to know when he would be able to resume his coumadin. He is requesting a callback RICK @ [phone] documented in this encounter Plan of Treatment Upcoming Encounters Date Type Department Care Team (Late st Contact Info) Description 06/03/2025 2:45 PM EST Office Visit Internal Medicine - [facility] [address] [place], [place] [phone] Aide Linares NP [address] [place] [address] documented as of this encounter Visit Diagnoses Not on filedocumented in this encounter Care Teams Greens Tier Relationship Specialty Start Date End Date Le Recinos DO [address] [place] [address] PCP - General 04/28/24 documented as of this encounter
--- OUTSIDE RECORDS SUMMARY | 2025-05-17 06:29 | XMS_ITS | Encounter Summary ---
Author Organization [facility] Address [address] [place] [address] Care Team Providers Care Dividend Clerk Name Role Phone FerozLe gomes Primary Care Provider [phone] Encounter Details Date Type Department Care Team (Late st Contact Info) Description 10/01/2024 Lab Requisition [facility] - Main Lab [address] [place] [phone] Bernadine Florez MD [address] [place] [address] Other malaise; Unspecified atrial fibrillation (CMS/HCC V24, [...] Internal Medicine - [facility] [address] [place] [address] Aide Linares, LEWIS [address] [place] [address] documented as of this encounter Visit Diagnoses Diagnosis Other malaise Unspecified atrial fibrillation (CMS/HCC V24, CMS/HCC V28) documented in this encounter Additional Health Concerns Infection Onset Date Last Indicated Resolved Time Tuberculosis Rule-Out 01/12/2025 01/12/20252024 7:05 PM EDT documented as of this encounter Care Teams Dividend Clerk Relationship Specialty Start Date End Date Le Recinos DO [address] [place] [address] PCP - General 04/28/24 documented as of this encounter
--- OUTSIDE RECORDS SUMMARY | 2025-05-17 06:29 | XMS_ITS | Clinical Summary ---
Author Organization [address] [facility] Building Address [address] [place] [phone] Phone Care Team Providers Care Scheduling Analyst Name Role Phone Le Recinos DO Primary Care Provider [phone] Allergies No known active allergies Medications docusate sodium (COLACE) 100 mg capsule Take 1 capsule (100 mg total) by mouth 2 (two) times a day. Active inhaler, assist devices (E-Z SPACER MISC) 1 Units by Does not apply route as needed (for inhaler). 07/02/20 23 Active Bifidobacterium infantis (Align) 4 mg capsule 06/27/20 23 Active ipratropium-albu teroL (DUONEB) 0.5-2.5 mg/3 mL nebulizer solutionIndicati ons:chronic obstructive pulmonary disease with bronchospasms,re fractory symptoms with inhalers Take 3 mL by nebulization every 6 (six) hours. 360 mL 3 01/26/20 25 026 Active bisacodyL (Dulcolax, bisacodyl,) 10 mg suppository Insert 1 suppository (10 mg total) into the rectum if needed. 10/03/19 25 Active polyethylene glycol 3350 (MIRALAX ORAL) Take 17 g by mouth if needed. 10/06/19 25 Active traZODone (DESYREL) 50 mg tablet Take 1 tablet (50 mg total) by mouth at bedtime. 30 each 2 02/11/20 25 Active rosuvastatin (CRESTOR) 5 mg tablet Take 1 tablet (5 mg total) by mouth 1 (one) time each day. 90 tablet 1 02/11/20 25 Active omeprazole (PriLOSEC) [address] capsule Take 1 capsule (20 mg total) by mouth 1 (one) time each day. 90 capsule 1 02/11/20 25 Active Anoro Ellipta 62.5-25 mcg/actuation inhaler Inhale 1 puff by mouth 1 (one) time each day. 1 each 3 02/11/20 25 026 Active warfarin (COUMADIN) 5 mg tablet Take 1 Tablet by mouth . Follow coumadin clinic instructions. May cause heavy bleeding. Take at same time every day. Do not change dietary habits. 90 tablet 04/11/20 25 Active metoprolol tartrate (LOPRESSOR) 25 mg tabletIndication s:Primary hypertension Take 1 tablet (25 mg total) by mouth 2 (two) times a day. 180 each 04/11/20 25 Active amLODIPine-benaz epril (LOTREL) 5-20 mg per capsuleIndicatio ns:Primary hypertension Take 1 capsule by mouth 1 (one) time each day. 90 each 04/11/20 25 Active buPROPion SR (WELLBUTRIN SR) 150 mg 12 hr tabletIndication s:Depression, unspecified depression type Take 1 tablet (150 mg total) by mouth 2 (two) times a day. 180 each 04/11/20 25 Active enoxaparin (LOVENOX) 80 mg/0.8 mL syringe Inject 0.7 mL (70 mg total) under the skin every 12 (twelve) hours. To discard 10 mg 10 each 1 05/04/20 25 Active enoxaparin (LOVENOX) 80 mg/0.8 mL syringe Inject 0.7 mL (70 mg total) under the skin every 12 (twelve) hours. To discard 10 mg 10 each 1 03/18/20 25 025 Discontin ued(Reord er) enoxaparin (LOVENOX) 80 mg/0.8 mL syringe Inject 0.7 mL (70 mg total) under the skin every 12 (twelve) hours. To discard 10 mg 10 each 1 04/29/20 25 025 Discontin ued(Reord er) Active Problems Problem Noted Date Diagnosed Date [...] Z-Savage. Squamous cell carcinoma lung , left ([facility] V24, [facility]/HCC V28) 06/30/2023 Overview (05/31/2024): 04/30/2023 status post [...] explained how the size, shape, and change control analyst time affect her level of suspicion for [...] that I will have him see his meat inspector for a risk assessment as well as a batch maker to give recommendations around anticoagulation around surgery. He certainly will have to stop his Coumadin 5 days prior to operation but the question of a bridge or what to bridge with. Aortic root dilatation (CMS/[facility] V24) 01/24/2023 Coronary artery disease invo lving [place] coronary artery of [place] heart without angina pectoris 06/20/2022 Mixed hyperlipidemia 06/20/2022 Primary hypertension 04/23/2022 Coronary artery disease due to calcified coronar y lesion 03/18/2022 Lab test positive for detection of COVID-19 viru s 07/11/2021 Overview (05/31/2024): 07/03/21, ADMITTED [facility] 07/03/21 Thoracic aortic aneurysm (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 V24) 02/03/2017 Hematuria 02/03/2017 Overview (05/31/2024): Did not schedule urology appt 06/06 COPD (chronic obstructive pu lmonary disease) ([facility] V24, [facility] V28) 02/16/2016 Depression 08/18/2015 Overview (05/31/2024): [facility] Hyperlipidemia with target LDL less than 130 10/2012 Benign neoplasm of colon 05/13/2011 Overview (05/31/2024): 10 mm polyp 2002. Neg CN 2003. Small polyps x 2 at CN 05/13/2011: Pathology report: Tubular adenomas x 2. 2 polyps 05/09; repeat due 2024 Factor V Leiden mutation (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 V24, [facility] V28) 10/03/2010 Heartburn 10/10/2009 Tobacco use disorder 08/25/2008 Cervical disc displacement 03/09/2008 Migraine with aura 07/05/2005 Overview (05/31/2024): Onset in teens, better as an adult. Resolved Problems Problem Noted Date Diagnosed Date Resolved Date SBO (small bowel obstruction ) ([facility] V24, [facility] V28) 08/29/2024 09/16/2024 Encounters Date Type Department Care Team Description 05/13/2025 Anticoagulation - Warfarin Visit [facility] Clinic - [place] [address] [place] [phone] Divina Lozoya LPN Deep vein thrombosis (DVT) of distal vein of left lower extremity, unspecified chronicity (CMS/HCC V24, CMS/HCC V28) (Primary Dx); Factor V Leiden mutation ([facility] V24) 05/12/2025 [facility] [address] [place] [phone] Le Recinos DO 04/29/2025 Telephone Coumadin Clinic - [address] [phone] Divina Lozoya LPN 04/28/2025 2:30 PM EDT Anticoagulation - Warfarin Visit Coumadin [facility] - [address] [phone] Deep vein thrombosis (DVT) of distal vein of left lower extremity, unspecified chronicity ([facility]/HCC V24, CMS/[facility] V28) (Primary Dx); Factor V Leiden mutation ([facility] V24) 04/21/2025 1:45 PM EDT Anticoagulation - Warfarin Visit [facility]in Clinic - [address] [phone] Deep vein thrombosis (DVT) of distal vein of left lower extremity, unspecified chronicity (CMS/HCC V24, CMS/HCC V28) (Primary Dx); Factor V Leiden mutation (CMS/HCC V24) 04/14/2025 1:30 PM EDT Anticoagulation - Warfarin Visit [facility] [address] [phone] Deep vein thrombosis (DVT) of distal vein of left lower extremity, unspecified chronicity (CMS/HCC V24, CMS/HCC V28) (Primary Dx); Factor V Leiden mutation (CMS/HCC V24) 04/12/2025 2:45 PM EDT Office Visit Orthopedic Surgery [facility] [address] [facility] [address] [place] [phone] Mello Lewis MD Calcific tendinitis of left shoulder (Primary Dx) 04/11/2025 Anticoagulation - Warfarin Visit [facility] [address] [phone] Kiara Anderson LPN Deep vein thrombosis (DVT) of distal vein of left lower extremity, unspecified chronicity (CMS/HCC V24, CMS/HCC V28) (Primary Dx); Factor V Leiden mutation ([facility]/HCC V24) 04/08/2025 Anticoagulation - Warfarin Visit Coumadin [facility] [address] [place] [phone] Divina Lozoya LPN Deep vein thrombosis (DVT) of distal vein of left lower extremity, unspecified chronicity (CMS/HCC V24, CMS/HCC V28) (Primary Dx); Factor V Leiden mutation ([facility]/HCC V24) 04/08/2025 Telephone Coumadin [facility] [address] [place] [phone] Divina Lozoya LPN 04/04/2025 Anticoagulation - Warfarin Visit [facility] [address] [phone] Kiara Anderson LPN Deep vein thrombosis (DVT) of distal vein of left lower extremity, unspecified chronicity (CMS/HCC V24, CMS/HCC V28) (Primary Dx); Factor V Leiden mutation (CMS/HCC V24) 03/31/2025 1:00 PM EDT Anticoagulation - Warfarin Visit [facility] [place] [address] [place] [address] Deep vein thrombosis (DVT) of distal vein of left lower extremity, unspecified chronicity (CMS/HCC V24, CMS/HCC V28) (Primary Dx); Factor V Leiden mutation ([facility] V24) 03/25/2025 Anticoagulation - Warfarin Visit Coumadin [address] [phone] Kiara Anderson LPN Deep vein thrombosis (DVT) of distal vein of left lower extremity, unspecified chronicity (CMS/HCC V24, CMS/HCC V28) (Primary Dx); Factor V Leiden mutation ([facility] V24) 03/22/2025 [facility] [address] [place] [address] Divina Lozoya LPN 03/17/2025 1:30 PM EDT Anticoagulation - Warfarin Visit Coumadin [address] [phone] Deep vein thrombosis (DVT) of distal vein of left lower extremity, unspecified chronicity (CMS/HCC V24, CMS/HCC V28) (Primary Dx); Factor V Leiden mutation ([facility] V24) 02/24/2025 1:45 PM EDT Anticoagulation - Warfarin Visit [address] [phone] Deep vein thrombosis (DVT) of distal vein of left lower extremity, unspecified chronicity ([facility]/HCC V24, CMS/HCC V28) (Primary Dx); Factor V Leiden mutation ([facility] V24) from Last 3 Months Immunizations Immunization Administration Dates Next Due Influenza trivalent, 0.5mL [...] polyps x2: Tubular adenoma x2. APPENDECTOMY PROCEDURE: ME APPENDECTOMY OTHER SURGICAL HISTORY 04/30/2023 Left PROCEDURE: ME THORACOSCOPY W/SEGMENTECTOMY; COMMENT: MARCIAL wedge w/ segmentectomy [...] COMMENT: Actinic keratosis 03/08 forehead 03/28 left hindu COPD (chronic obstructive pu lmonary disease) ([facility] V24, [facility] V28) DX:COPD (chronic o bstructive pulmonary disease) (HCC) Lung cancer ([facility] [place], [facility] V28) status post resection Hypertension Hyperlipidemia Factor V Leiden ([facility] V24) History of DVT (deep vein [...] PM EST [facility] [address] [place] [phone] Aide Linares, LEWIS [address] [place] [address] Health Maintenance Due Date Last Done Comments COVID-19 Vaccine (#1) 1955 Zoster Vaccines (1 of 2) 1969 RSV Immunization Adult Patients (1 - Risk 50-74 years 1-dose series) 2000 Medicare Annual Wellness Visit 06/29/2022 Social Influencers [...] this topic Medical Devices Implanted Type Area Charging Plug Placer Device Identifier Shelf Expiration Date Model / Serial / Lot Tray Rad Cath 1lum Poly 4f - [id number] Implanted:Qty: 1 on 09/08/2024 by Savanah Go MD at [facility] Central/Chloe pheral Catheters and Ports Right: Arm BD VASCULAR ACCESS DEVICES FKA BARD ACCESS [id number] 06/19/2026 [id number] / / [id number] Marker Cobra Superlock - Sn/A - [id number] Implanted:Qty: 1 on 01/12/2025 by Collette Avalos MD at [facility] Imaging Implants Left: Lung COVIDIEN SUPERDIMENSION [id number] 11/01/2028 [id number] / N/A / [id number] Description:Left lower lobe Procedures Procedure Name Priority Date/Time Associated Diagnosis Comments PROTHROMBIN TIME WITH INR Routine 05/13/2025 11:21 AM EDT Deep vein thrombosis (DVT) of distal vein of left lower extremity, unspecified chronicity (CMS/HCC V24, CMS/HCC V28) Factor V Leiden mutation (CMS/HCC V24) POC PROTIME INR BLOOD Routine 04/28/2025 2:28 PM EDT Deep vein thrombosis (DVT) of distal vein of left lower extremity, unspecified chronicity (CMS/HCC V24, CMS/HCC V28) Factor V Leiden mutation (CMS/HCC V24) POC PROTIME INR BLOOD Routine 04/21/2025 1:41 PM EDT Deep vein thrombosis (DVT) of distal vein of left lower extremity, unspecified chronicity (CMS/HCC V24, CMS/HCC V28) Factor V Leiden mutation (CMS/HCC V24) POC PROTIME INR BLOOD Routine 04/14/2025 1:26 PM EDT Deep vein thrombosis (DVT) of distal vein of left lower extremity, unspecified chronicity (CMS/HCC V24, CMS/HCC V28) Factor V Leiden mutation (CMS/HCC V24) ME ARTHROCENTESIS/ASPI RATION/INJECTION MAJOR JOINT/BURSA W/O U/S GUIDANCE Routine 04/12/2025 2:45 PM EDT Calcific tendinitis of left shoulder PROTHROMBIN TIME WITH INR Routine 04/11/2025 10:48 AM EDT Deep vein thrombosis (DVT) of distal vein of left lower extremity, unspecified chronicity (CMS/HCC V24, CMS/HCC V28) Factor V Leiden mutation (CMS/HCC V24) PROTHROMBIN TIME WITH INR Routine 04/08/2025 1:10 PM EDT Deep vein thrombosis (DVT) of distal vein of left lower extremity, unspecified chronicity (CMS/HCC V24, CMS/HCC V28) Factor V Leiden mutation (CMS/HCC V24) PROTHROMBIN TIME WITH INR Routine 04/04/2025 9:51 [...] PM EDT Personal history of nicotine dependence ABDOMINAL AORTIC ANEURYSM SCRREN Routine 05/30/2020 COLONOSCOPY Routine 05/01/2020 HEPATITIS C SCREENING Routine 01/25/2013 from Last 3 Months or Most Recently Relevant to Health Maintenance Results * (ABNORMAL) Prothrombin time with INR (05/13/2025 11:21 AM EDT) Only the most recent of5 resultswithin the time period is included. Protime 30.9(H) 10.6 - 13.9 sec LAB COAGULATION METHOD 05/13/2025 1:[address] [facility] INR 2.5 LAB COAGULATION METHOD 05/13/2025 1:[address] [facility] Blood Venous blood specimen / Unknown Venipuncture / Unknown 05/13/2025 11:21 AM EDT 05/13/2025 11:21 AM EDT Le Recinos DO LAB BLOOD ORDERABLES Final Res ult [facility] [address] [place] [address], [place] [phone] * POC Protime INR Blood (04/28/2025 2:28 PM EDT) Only the most recent of6 resultswithin the time period is included. Lot Number INR POC 2.4 Prothrombin Time POC Exp Date Blood 04/28/2025 2:28 PM EDT Bobby Mayfield NP POINT OF CARE TEST ENTER/EDIT ORDERABLES Final Result * ME ARTHROCENTESIS/ASPIRATION/INJECTION MAJOR JOINT/BURSA W/O U/S GUIDANCE (04/12/2025 2:45 PM EDT) Narrative Mello Lewis MD - 04/12/2025 2:45 PM EDT Mello Lewis MD 04/12/2025 9:10 PM L Inj/Asp: L subacromial bursa Indications: pain Details: 22 G needle, posterior approach Medications: 40 mg triamcinolone acetonide 40 mg/mL Outcome: tolerated well, no immediate complications Site was prepped in standard fashion using alcohol swab, sterile technique was used to perform the injection, the patient tolerated the procedure well and a band-aid dressing was applied Informed Consent: Site: Left subacromial Laterality: Left Relevant images/test results available and reviewed: yes Health status cleared: Yes Procedure/treatment, purpose, treatment alternatives, risks/potential complications and benefits explained: yes Risk/complications/benefits details: Risk/complications/benefits details: Risks and benefits of corticosteroid injection were discussed, including risk of pain, bleeding, infection, tissue attenuation, tendon rupture, changes in skin color, and injury to surrounding structures such as arteries, veins and nerves. We also discussed the patient may develop worsening pain for a few days before having improvement in their symptoms. Patient questions answered: yes Patient agrees, verbalizes understanding, and wants to proceed: yes Consent given by: Patient Informed consent discussion completed by Physician/RJ with patient: Verbal Pre-procedure timeout performed: yes us Mello Lewis MD IN CLINIC/BEDSIDE ORDERABLES Fin al Result * (ABNORMAL) Basic metabolic panel (12/20/2024 1:31 PM EDT) Sodium 138 133 - 145 mmol/L LAB CHEMISTRY METHOD 12/20/2024 4:33 PM [facility] Potassium 3.9 3.5 - 5.5 mmol/L LAB CHEMISTRY METHOD 12/20/2024 4:33 PM [facility] Chloride 104 96 - 110 mmol/L LAB CHEMISTRY METHOD 12/20/2024 4:33 PM [facility] CO2 27 21 - 32 mmol/L LAB CHEMISTRY METHOD 12/20/2024 4:33 PM [facility] Anion Gap 7 3 - 11 LAB CHEMISTRY METHOD 12/20/2024 4:33 PM [facility] Glucose 107(H) 70 - 100 mg/dL LAB CHEMISTRY METHOD 12/20/2024 4:33 PM [facility] BUN 11 5 - 25 mg/dL LAB CHEMISTRY METHOD 12/20/2024 4:33 PM [facility] Creatinine 0.81 0.70 - 1.30 mg/dL LAB CHEMISTRY METHOD 12/20/2024 4:33 PM [facility] eGFR 93 >=60 mL/min/1. 73m2 LAB CHEMISTRY METHOD 12/20/2024 4:33 PM [facility] Comment:Calculation based on the Chronic Kidney Disease Epidemiology Collaboration (CKD-EPI) equation refit without adjustment for race. BUN/Creatinine Ratio 13.6 LAB CHEMISTRY METHOD 12/20/2024 4:33 PM [facility] Calcium 9.1 8.5 - 10.5 mg/dL LAB CHEMISTRY METHOD 12/20/2024 4:33 PM [facility] Blood Venous blood specimen / Unknown Venipuncture / Unknown 12/20/2024 1:31 PM EDT 12/20/2024 1:35 PM EDT us Collette Avalos MD LAB BLOOD ORDERABLES Final Result Performing Organization Address City/[facility]/ZIP Co de Phone Number [facility] [address] [place] [address], [place] [phone] * (ABNORMAL) Lipid panel with reflex to direct LDL (07/28/2024 3:53 PM EST) Cholesterol 162 0 - 200 mg/dL LAB CHEMISTRY METHOD 07/28/2024 6:[address] [facility] Triglycerides 212(H) 0 - 150 mg/dL LAB CHEMISTRY METHOD 07/28/2024 6:[address] [facility] HDL 50 >=40 mg/dL LAB CHEMISTRY METHOD 07/28/2024 6:[address] [facility] LDL Calculated 70 0 - 100 mg/dL LAB CHEMISTRY METHOD 07/28/2024 6:[address] [facility] VLDL Cholesterol Hermelindo 42.4 mg/dL LAB CHEMISTRY METHOD 07/28/2024 6:[address] [facility] Non HDL Chol. (LDL+VLDL) 112 <145 mg/dL LAB CHEMISTRY METHOD 07/28/2024 6:[address] [facility] Chol/HDL Ratio 3.2 0.0 - 4.4 LAB CHEMISTRY METHOD 07/28/2024 6:57 PM [facility] Blood Venous blood specimen / Unknown Venipuncture / Unknown 07/28/2024 3:53 PM EST 07/28/2024 3:53 PM EST Ca Durán NP LAB BLOOD ORDERABLES Final Resul t Performing Organization Address City/[facility]/ZIP Co de Phone Number [facility] [address] [place] [address], [place] [phone] * CT LUNG SCREENING LOW DOSE (03/17/2023 3:36 PM EDT) Anatomical Region Laterality Modality Computed Tomogra phy 03/17/2023 1:40 PM EDT Narrative 03/17/2023 3:36 PM EDT [facility] Diagnostic Imaging Department [address] [place] [address] Patient: YURIY JOY Lala /Age/Sex: 1950 - 72 - M Unit#: [id number] Location/Status: [facility] CLI Mnemonic/Ordering Site: [facility] Ordering Physician: MRAILUZ NGO MD CT Lung Screening Low Dose [...] Note Jame Zamora MD - 08/26/2023 [facility] Diagnostic Imaging Department [address] [place] [address] Patient: YURIY JOY Lala /Age/Sex: 1950 - 72 - M Unit#: [id number] Location/Status: [facility] Mnemonic/Ordering Site: [facility] Ordering Physician: MAIRLUZ NGO MD CT Lung Screening Low Dose [...] no interpretation Anatomical Region Laterality Modality Other [facility] Provider HEALTH MAINTENANCE Final Result * Colonoscopy (05/01/2020) Colonoscopy abstracted, no interpretation Anatomical Region Laterality Modality Other [facility] Provider HEALTH MAINTENANCE Final Result * Hepatitis C Screening (01/25/2013) Hepatitis C Screening abstracted [facility] Pancho BRICE HEALTH MAINTENANCE Final Result from Last 3 Months or Most Recently Relevant to Health Maintenance Insurance [employer] - [place] MEDICARE ADVANTAGE Advance Directives Documents on File Type Date Recorded 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
--- OUTSIDE RECORDS SUMMARY | 2025-05-17 06:29 | XMS_ITS | Encounter Summary ---
Author Organization [facility] Address [address] [place] [address] Care Team Providers Care Vp Design Name Role Phone JorjeLe Primary Care Provider [phone] Encounter Details Date Type Department Care Team (Late st Contact Info) Description 10/20/2024 Lab Requisition [facility] - Main Lab [address] [place] [address] Bernadine Florez MD [address] [place], [place] [id number] Unspecified atrial fibrillation (CMS/HCC V24, CMS/HCC V28) [...] PM EST [facility] [address] [place] [address] Aide Linares NP [address] [place] [address] documented as of this encounter Procedures Procedure Name Priority Date/Time Associated Diagnosis Comments PROTHROMBIN TIME WITH INR Routine 10/21/2024 5:44 AM EDT Unspecified atrial fibrillation (CMS/HCC) documented in this encounter Results * (ABNORMAL) Prothrombin time with INR (10/21/2024 5:44 AM EDT) Protime 25.4(H) 10.6 - 13.9 sec LAB COAGULATION METHOD 10/21/2024 8:31 AM EDT [facility] INR 2.0 LAB COAGULATION METHOD 10/21/2024 8:31 AM EDT [facility] Blood Venous blood specimen / Unknown Venipuncture / Unknown 10/21/2024 5:44 AM EDT 10/21/2024 8:08 AM EDT us Bernadine Florez MD LAB BLOOD ORDERABLES Final Resul t [facility] [address] [place] [address], documented in this encounter Visit Diagnoses Diagnosis Unspecified atrial fibrillation (CMS/HCC V24, CMS/HCC V28) documented in this encounter Additional Health Concerns Infection Onset Date Last Indicated Resolved Time Tuberculosis Rule-Out 01/12/2025 01/12/20252024 7:05 PM EDT documented as of this encounter Care Teams Vp Design Relationship Specialty Start Date End Date Le Recinos DO [address] [place] [address] PCP - General 04/28/24 documented as of this encounter
--- OUTSIDE RECORDS SUMMARY | 2025-05-17 06:29 | XMS_ITS | Encounter Summary ---
Author Organization [facility] Address [address] [place] [address] Care Team Providers Care Outpatient Scheduler Name Role Phone FerozLe gomes Primary Care Provider [phone] Encounter Details Date Type Department Care Team (Late st Contact Info) Description 10/23/2024 Lab Requisition [facility] - Main Lab [address] [place] [address] Bernadine Florez MD [address] [place], [place] [id number] Unspecified atrial fibrillation (CMS/HCC V24, CMS/HCC V28) [...] EST [facility] [address] [place] [address] Aide Linares NP [address] [place] [address] documented as of this encounter Procedures Procedure Name Priority Date/Time Associated Diagnosis Comments PROTHROMBIN TIME WITH INR Routine 10/25/2024 6:52 AM EDT Unspecified atrial fibrillation (CMS/HCC) documented in this encounter Results * (ABNORMAL) Prothrombin time with INR (10/25/2024 6:52 AM EDT) Protime 27.0(H) 10.6 - 13.9 sec LAB COAGULATION METHOD 10/25/2024 9:52 AM EDT [facility] INR 2.2 LAB COAGULATION METHOD 10/25/2024 9:52 AM EDT [facility] Blood Venous blood specimen / Unknown Venipuncture / Unknown 10/25/2024 6:52 AM EDT 10/25/2024 9:17 AM EDT us Bernadine Florez MD LAB BLOOD ORDERABLES Final Resul t [facility] [address] [place] [address], documented in this encounter Visit Diagnoses Diagnosis Unspecified atrial fibrillation (CMS/HCC V24, CMS/HCC V28) documented in this encounter Additional Health Concerns Infection Onset Date Last Indicated Resolved Time Tuberculosis Rule-Out 01/12/2025 01/12/20252024 7:05 PM EDT documented as of this encounter Care Teams Outpatient Scheduler Relationship Specialty Start Date End Date Le Recinos DO [address] [place] [address] PCP - General 04/28/24 documented as of this encounter
--- OUTSIDE RECORDS SUMMARY | 2025-05-17 06:29 | XMS_ITS | Encounter Summary ---
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; Chronic obstructive pulmonary [...] PM EST Office Visit Internal Medicine - [facility] [address] [place], [place] [phone] Aide Linares NP [address] [place] [address] documented as of this encounter Procedures Procedure Name Priority Date/Time Associated Diagnosis Comments PROTHROMBIN TIME WITH INR Routine 10/06/2024 8:29 AM EDT Essential (primary) 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 Chronic obstructive pulmonary disease, unspecified (CMS/HCC) COMPLETE BLOOD COUNT Routine 10/06/2024 8:29 AM EDT Essential (primary) hypertension longterm (current) use of anticoagulants Chronic obstructive pulmonary disease, unspecified (CMS/HCC) BASIC METABOLIC PANEL Routine 10/06/2024 8:29 AM EDT Essential (primary) hypertension longterm (current) use of anticoagulants Chronic obstructive pulmonary disease, unspecified (CMS/HCC) documented in this encounter Results * (ABNORMAL) Basic metabolic panel (10/06/2024 8:29 AM EDT) Sodium 137 133 - 145 mmol/L LAB CHEMISTRY METHOD 10/06/2024 1:22 PM EDT [facility] Potassium 4.4 3.5 - 5.5 mmol/L LAB CHEMISTRY METHOD 10/06/2024 1:22 PM EDT [facility] Chloride 106 96 - 110 mmol/L LAB CHEMISTRY METHOD 10/06/2024 1:22 PM EDT [facility] CO2 21 21 - 32 mmol/L LAB CHEMISTRY METHOD 10/06/2024 1:22 PM EDT [facility] Anion Gap 10 3 - 11 LAB CHEMISTRY METHOD 10/06/2024 1:22 PM EDT [facility] Glucose 116(H) 70 - 100 mg/dL LAB CHEMISTRY METHOD 10/06/2024 1:22 PM EDT [facility] BUN 12 5 - 25 mg/dL LAB CHEMISTRY METHOD 10/06/2024 1:22 PM EDT [facility] Creatinine 0.84 0.70 - 1.30 mg/dL LAB CHEMISTRY METHOD 10/06/2024 1:22 PM EDT [facility] eGFR 92 >=60 mL/min/1. 73m2 LAB CHEMISTRY METHOD 10/06/2024 1:22 PM EDT [facility] Comment:Calculation based on the Chronic Kidney Disease Epidemiology Collaboration (CKD-EPI) equation refit without adjustment for race. BUN/Creatinine Ratio 14.3 LAB CHEMISTRY METHOD 10/06/2024 1:22 PM EDT [facility] Calcium 8.8 8.5 - 10.5 mg/dL LAB CHEMISTRY METHOD 10/06/2024 1:22 PM EDT [facility] Blood Venous blood specimen / Unknown Venipuncture / Unknown 10/06/2024 8:29 AM EDT 10/06/2024 10:25 AM EDT us Bernadine Florez MD LAB BLOOD ORDERABLES Final Resul t [facility] [address] [place] [address], * (ABNORMAL) Prothrombin time with INR (10/06/2024 8:29 AM EDT) Protime 46.4(H) 10.6 - 13.9 sec LAB COAGULATION METHOD 10/06/2024 12:04 PM EDT [facility] INR 3.8 LAB COAGULATION METHOD 10/06/2024 12:04 PM EDT [facility] Blood Venous blood specimen / Unknown Venipuncture / Unknown 10/06/2024 8:29 AM EDT 10/06/2024 10:25 AM EDT Bernadine Florez MD LAB BLOOD ORDERABLES Final Resul t [facility] [address] [place] [address], * (ABNORMAL) Complete blood count (10/06/2024 8:29 AM EDT) WBC 7.8 4.8 - 10.8 K/mcL LAB HEMETOLOGY METHOD 10/06/2024 11:56 AM EDT [facility] RBC 4.30(L) 4.50 - 5.50 M/mcL LAB HEMETOLOGY METHOD 10/06/2024 11:56 AM EDT [facility] Hemoglobin 12.2(L) 13.5 - 17.5 g/dL LAB HEMETOLOGY METHOD 10/06/2024 11:56 AM EDT [facility] Hematocrit 37.6(L) 42.0 - 54.0 % LAB HEMETOLOGY METHOD 10/06/2024 11:56 AM EDT [facility] MCV 87.4 79.0 - 98.0 FL LAB HEMETOLOGY METHOD 10/06/2024 11:56 AM EDT [facility] MCH 28.4 27.0 - 32.0 pcg LAB HEMETOLOGY METHOD 10/06/2024 11:56 AM EDT [facility] MCHC 32.4 32.0 - 37.0 g/dL LAB HEMETOLOGY METHOD 10/06/2024 11:56 AM EDT [facility] RDW 14.1 11.0 - 15.0 % LAB HEMETOLOGY METHOD 10/06/2024 11:56 AM EDT [facility] Platelets 259 130 - 400 K/mcL LAB HEMETOLOGY METHOD 10/06/2024 11:56 AM EDT [facility] MPV 10.5 7.0 - 11.0 FL LAB HEMETOLOGY METHOD 10/06/2024 11:56 AM EDT [facility] NRBC 0.0 <1.0 % LAB HEMETOLOGY METHOD 10/06/2024 11:56 AM EDT [facility] NRBC Absolute 0.00 <0.10 K/mcL LAB HEMETOLOGY METHOD 10/06/2024 11:56 AM EDT [facility] Blood Venous blood specimen / Unknown Venipuncture / Unknown 10/06/2024 8:29 AM EDT 10/06/2024 10:25 AM EDT Bernadine Florez MD LAB BLOOD ORDERABLES Final Resul t [facility] [address] [place] [address], documented in this encounter Visit Diagnoses Diagnosis Essential (primary) hypertension Unspecified essential 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
--- OUTSIDE RECORDS SUMMARY | 2025-05-17 06:29 | XMS_ITS | Encounter Summary ---
Author Organization [facility] Address [address] [place] [address] Care Team Providers Care Data Security Administrator Name Role Phone JorjeLe Primary Care Provider [phone] Encounter Details Date Type Department Care Team (Late st Contact Info) Description 09/23/2024 Lab Requisition [facility] - Main Lab [address] [place] [address] Bernadine Florez MD [address] [place], [place] [phone] Unspecified atrial fibrillation (CMS/HCC V24, CMS/HCC V28) [...] PM EST [facility] [address] [place] [address] Aide Linares NP [address] [place] [address] documented as of this encounter Procedures Procedure Name Priority Date/Time Associated Diagnosis Comments PROTHROMBIN TIME WITH INR Routine 09/24/2024 7:47 AM EST Unspecified atrial fibrillation (CMS/HCC) documented in this encounter Results * (ABNORMAL) Prothrombin time with INR (09/24/2024 7:47 AM EST) Protime 18.4(H) 10.6 - 13.9 sec LAB COAGULATION METHOD 09/24/2024 11:18 AM EST [facility] INR 1.5 LAB COAGULATION METHOD 09/24/2024 11:18 AM EST [facility] Blood Venous blood specimen / Unknown Venipuncture / Unknown 09/24/2024 7:47 AM EST 09/24/2024 10:33 AM EST us Bernadine Florez MD LAB BLOOD ORDERABLES Final Resul t [facility] [address] [place] [address], documented in this encounter Visit Diagnoses Diagnosis Unspecified atrial fibrillation (CMS/HCC V24, CMS/HCC V28) documented in this encounter Additional Health Concerns Infection Onset Date Last Indicated Resolved Time Tuberculosis Rule-Out 01/12/2025 01/12/20252024 7:05 PM EDT documented as of this encounter Care Teams Data Security Administrator Relationship Specialty Start Date End Date Le Recinos DO [address] [place] [address] PCP - General 04/28/24 documented as of this encounter
--- OUTSIDE RECORDS SUMMARY | 2025-05-17 06:29 | XMS_ITS | Encounter Summary ---
Author Organization [facility] Address [address] [place] [address] Care Team Providers Care Ledger Poster Name Role Phone JorjeLe Primary Care Provider [phone] Encounter Details Date Type Department Care Team (Late st Contact Info) Description 09/21/2024 Lab Requisition [facility] - Main Lab [address] [place] [address] Bernadine Florez MD [address] [place], [place] [phone] Unspecified atrial fibrillation (CMS/HCC V24, CMS/HCC V28) [...] PM EST Office Visit Internal Medicine - [facility] [address] [facility] [place] [address] Aide Linares, LEWIS [address] [place] [address] documented as of this encounter Visit Diagnoses Diagnosis Unspecified atrial fibrillation (CMS/HCC V24, CMS/HCC V28) documented in this encounter Additional Health Concerns Infection Onset Date Last Indicated Resolved Time Tuberculosis Rule-Out 01/12/2025 01/12/20252024 7:05 PM EDT documented as of this encounter Care Teams Ledger Poster Relationship Specialty Start Date End Date Le Recinos DO [address] [place] [address] PCP - General 04/28/24 documented as of this encounter
--- OUTSIDE RECORDS SUMMARY | 2025-05-17 06:29 | XMS_ITS | Encounter Summary ---
Author Organization [facility] Address [address] [place] [address] Care Team Providers Care Railway Yard Assistant Name Role Phone JorjeLe Primary Care Provider [phone] Encounter Details Date Type Department Care Team (Late st Contact Info) Description 10/13/2024 Lab Requisition [facility] - Main Lab [address] [place] [address] Bernadine Florez MD [address] [place], [place] [phone] Unspecified atrial fibrillation (CMS/HCC V24, CMS/HCC V28) [...] PM EST [facility] [address] [place] [address] Aide Linares NP [address] [place] [address] documented as of this encounter Procedures Procedure Name Priority Date/Time Associated Diagnosis Comments PROTHROMBIN TIME WITH INR Routine 10/14/2024 9:47 AM EDT Unspecified atrial fibrillation (CMS/HCC) documented in this encounter Results * (ABNORMAL) Prothrombin time with INR (10/14/2024 9:47 AM EDT) Protime 17.7(H) 10.6 - 13.9 sec LAB COAGULATION METHOD 10/14/2024 11:09 AM EDT [facility] INR 1.4 LAB COAGULATION METHOD 10/14/2024 11:09 AM EDT [facility] Blood Venous blood specimen / Unknown Venipuncture / Unknown 10/14/2024 9:47 AM EDT 10/14/2024 10:59 AM EDT us Bernadine Florez MD LAB BLOOD ORDERABLES Final Resul t [facility] [address] [place] [address], documented in this encounter Visit Diagnoses Diagnosis Unspecified atrial fibrillation (CMS/HCC V24, CMS/HCC V28) documented in this encounter Additional Health Concerns Infection Onset Date Last Indicated Resolved Time Tuberculosis Rule-Out 01/12/2025 01/12/20252024 7:05 PM EDT documented as of this encounter Care Teams Railway Yard Assistant Relationship Specialty Start Date End Date Le Recinos DO [address] [place] [address] PCP - General 04/28/24 documented as of this encounter
--- OUTSIDE RECORDS SUMMARY | 2025-05-17 06:29 | XMS_ITS | Encounter Summary ---
Author Organization [facility] Address [address] [place] [address] Care Team Providers Care Limo Driver Name Role Phone FerozLe gomes Primary Care Provider [phone] Encounter Details Date Type Department Care Team (Late st Contact Info) Description 10/10/2024 Lab Requisition [facility] - Main Lab [address] [place] [phone] Bernadine Florez MD [address] [place] [address] Other malaise; Unspecified atrial fibrillation (CMS/HCC V24, [...] Office Visit Internal Medicine - [facility] [address] [place] [address] Aide Linares, LEWIS [address] [place] [address] documented as of this encounter Visit Diagnoses Diagnosis Other malaise Unspecified atrial fibrillation (CMS/HCC V24, CMS/HCC V28) documented in this encounter Additional Health Concerns Infection Onset Date Last Indicated Resolved Time Tuberculosis Rule-Out 01/12/2025 01/12/20252024 7:05 PM EDT documented as of this encounter Care Teams Limo Driver Relationship Specialty Start Date End Date Le Recinos DO [address] [place] [address] PCP - General 04/28/24 documented as of this encounter
--- OUTSIDE RECORDS SUMMARY | 2025-05-17 06:29 | XMS_ITS | Encounter Summary ---
Author Organization [facility] Address [address] [place] [address] Care Team Providers Care Digital Strategy Specialist Name Role Phone FerozLe gomes Primary Care Provider [phone] Encounter Details Date Type Department Care Team (Late st Contact Info) Description 09/26/2024 Lab Requisition [facility] - Main Lab [address] [place] [phone] Bernadine Florez MD [address] [place] [address] Other malaise; Unspecified atrial fibrillation (CMS/HCC V24, [...] Office Visit Internal Medicine - [facility] [address] [facility] [place] [phone] Aide Linares, LEWIS [address] [place] [address] documented as of this encounter Procedures Procedure [...] LAB COAGULATION METHOD 09/27/2024 9:54 AM EDT [facility] INR 3.0 LAB COAGULATION METHOD 09/27/2024 9:54 AM EDT [facility] Blood Venous blood specimen / Unknown Venipuncture / Unknown 09/27/2024 7:16 AM EDT 09/27/2024 9:30 AM EDT us Bernadine Florez MD LAB BLOOD ORDERABLES Final Resul t [facility] [address] [place] [address], * Basic metabolic panel (09/27/2024 7:16 AM EDT) Sodium 136 133 - 145 mmol/L LAB CHEMISTRY METHOD 09/27/2024 10:08 AM [facility] Potassium 4.4 3.5 - 5.5 mmol/L LAB CHEMISTRY METHOD 09/27/2024 10:08 AM [facility] Chloride 103 96 - 110 mmol/L LAB CHEMISTRY METHOD 09/27/2024 10:08 AM [facility] CO2 25 21 - 32 mmol/L LAB CHEMISTRY METHOD 09/27/2024 10:08 AM [facility] Anion Gap 8 3 - 11 LAB CHEMISTRY METHOD 09/27/2024 10:08 AM [facility] Glucose 99 70 - 100 mg/dL LAB CHEMISTRY METHOD 09/27/2024 10:08 AM [facility] BUN 25 5 - 25 mg/dL LAB CHEMISTRY METHOD 09/27/2024 10:08 AM [facility] Creatinine 0.97 0.70 - 1.30 mg/dL LAB CHEMISTRY METHOD 09/27/2024 10:08 AM [facility] eGFR 82 >=60 mL/min/1. 73m2 LAB CHEMISTRY METHOD 09/27/2024 10:08 AM [facility] Comment:Calculation based on the Chronic Kidney Disease Epidemiology Collaboration (CKD-EPI) equation refit without adjustment for race. BUN/Creatinine Ratio 25.8 LAB CHEMISTRY METHOD 09/27/2024 10:08 AM [facility] Calcium 9.5 8.5 - 10.5 mg/dL LAB CHEMISTRY METHOD 09/27/2024 10:08 AM [facility] Blood Venous blood specimen / Unknown Venipuncture / Unknown 09/27/2024 7:16 AM EDT 09/27/2024 9:16 AM EDT us Bernadine Florez MD LAB BLOOD ORDERABLES Final Resul t [facility] [address] [place] [address], * (ABNORMAL) Complete blood count (09/27/2024 7:16 AM EDT) WBC 6.6 4.8 - 10.8 K/mcL LAB HEMETOLOGY METHOD 09/27/2024 9:39 AM EDT [facility] RBC 4.20(L) 4.50 - 5.50 M/mcL LAB HEMETOLOGY METHOD 09/27[facility]2024 [facility] Hemoglobin 11.9(L) 13.5 - 17.5 g/dL LAB HEMETOLOGY METHOD 09/27/2024 9:39 AM [facility] Hematocrit 38.0(L) 42.0 - 54.0 % LAB HEMETOLOGY METHOD 09/27/2024 9:39 AM [facility] MCV 90.3 79.0 - 98.0 FL LAB HEMETOLOGY METHOD 09/27/2024 9:39 [facility] MCH 28.3 27.0 - 32.0 pcg LAB HEMETOLOGY METHOD 09/27/2024 9:39 AM T [facility] MCHC 31.3(L) 32.0 - 37.0 g/dL LAB HEMETOLOGY METHOD 09/27/2024 9:39 AM [facility] RDW 14.3 11.0 - 15.0 % LAB HEMETOLOGY METHOD 09/27/2024 9:39 AM [facility] Platelets 292 130 - 400 K/mcL LAB HEMETOLOGY METHOD 09/27/2024 9:39 AM [facility] MPV 10.1 7.0 - 11.0 FL LAB HEMETOLOGY METHOD 09/27/2024 9:39 AM EDT [facility] NRBC 0.0 <1.0 % LAB HEMETOLOGY METHOD 09/27/2024 9:39 AM EDT [facility] NRBC Absolute 0.00 <0.10 K/mcL LAB HEMETOLOGY METHOD 09/27/2024 9:39 AM EDT [facility] Blood Venous blood specimen / Unknown Venipuncture / Unknown 09/27/2024 7:16 AM EDT 09/27/2024 9:26 AM EDT us Bernadine Florez MD LAB BLOOD ORDERABLES Final Resul t [facility] [address] [place] [address], documented in this encounter Visit Diagnoses Diagnosis Other malaise Unspecified atrial fibrillation (CMS/HCC V24, CMS/HCC V28) documented in this encounter Additional Health Concerns Infection Onset Date Last Indicated Resolved Time Tuberculosis Rule-Out 01/12/2025 01/12/20252024 7:05 PM EDT documented as of this encounter Care Teams Digital Strategy Specialist Relationship Specialty Start Date End Date Le Recinos DO [address] [place] [address] PCP - General 04/28/24 documented as of this encounter
--- OUTSIDE RECORDS SUMMARY | 2025-05-17 06:29 | XMS_ITS | Encounter Summary ---
Author Organization [facility] Address [address] [place] [address] Care Team Providers Care Flight Director Name Role Phone JorjeLe Primary Care Provider [phone] Encounter Details Date Type Department Care Team (Late st Contact Info) Description 09/22/2024 Lab Requisition [facility] - Main Lab [address] [place] [address] Bernadine Florez MD [address] [place], [place] [phone] Unspecified atrial fibrillation (CMS/HCC V24, CMS/HCC V28) [...] [facility] [address] [place] [address] Aide Linares NP [address] [place] [address] documented as of this encounter Procedures Procedure Name Priority Date/Time Associated Diagnosis Comments PROTHROMBIN TIME WITH INR Routine 09/23/2024 6:12 AM EST Unspecified atrial fibrillation (CMS/HCC) documented in this encounter Results * (ABNORMAL) Prothrombin time with INR (09/23/2024 6:12 AM EST) Protime 17.7(H) 10.6 - 13.9 sec LAB COAGULATION METHOD 09/23/2024 9:33 AM EST [facility] INR 1.4 LAB COAGULATION METHOD 09/23/2024 9:33 AM EST [facility] Blood Venous blood specimen / Unknown Venipuncture / Unknown 09/23/2024 6:12 AM EST 09/23/2024 9:14 AM EST us Bernadine Florez MD LAB BLOOD ORDERABLES Final Resul t [facility] [address] [place] [address], documented in this encounter Visit Diagnoses Diagnosis Unspecified atrial fibrillation (CMS/HCC V24, CMS/HCC V28) documented in this encounter Additional Health Concerns Infection Onset Date Last Indicated Resolved Time Tuberculosis Rule-Out 01/12/2025 01/12/20252024 7:05 PM EDT documented as of this encounter Care Teams Flight Director Relationship Specialty Start Date End Date Le Recinos DO [address] [place] [address] PCP - General 04/28/24 documented as of this encounter
--- OUTSIDE RECORDS SUMMARY | 2025-05-17 06:29 | XMS_ITS | Encounter Summary ---
Author Organization [facility] Address [address] [place] [address] Care Team Providers Care Glass Embosser Name Role Phone JorjeLe Primary Care Provider [phone] Encounter Details Date Type Department Care Team (Late st Contact Info) Description 10/29/2024 Lab Requisition [facility] - Main Lab [address] [place] [address] Bernadine Florez MD [address] [place], [place] [phone] Unspecified atrial fibrillation (CMS/HCC V24, CMS/HCC V28) [...] Office Visit Internal Medicine - [facility] [address] [facility] [address] Aide Linares, LEWIS [address] [place] [address] documented as of this encounter Visit Diagnoses Diagnosis Unspecified atrial fibrillation (CMS/HCC V24, CMS/HCC V28) documented in this encounter Additional Health Concerns Infection Onset Date Last Indicated Resolved Time Tuberculosis Rule-Out 01/12/2025 01/12/20252024 7:05 PM EDT documented as of this encounter Care Teams Glass Embosser Relationship Specialty Start Date End Date eL Recinos DO [address] [place] [address] PCP - General 04/28/24 documented as of this encounter
--- OUTSIDE RECORDS SUMMARY | 2025-05-17 06:29 | XMS_ITS | Clinical Summary ---
Author Organization [facility] Address [address] [place] [address] Care Team Providers Care Production Or Plant Engineer Name Role Phone Caterina Sena MD Primary [...] age to complete this topic Care Teams Production Or Plant Engineer Relationship Specialty Start Date End Date Caterina Sena MD PCP - General Family Medicine 04/07/23
--- OUTSIDE RECORDS SUMMARY | 2025-05-17 06:29 | XMS_ITS | Encounter Summary ---
Author Organization [facility] Address [address] [place] [address] Care Team Providers Care Medical Staff Services Coordinator Name Role Phone JorjeLe Primary Care Provider [phone] Encounter Details Date Type Department Care Team (Late st Contact Info) Description 09/19/[address] [facility] - Main Lab [address] [place] [address] Bernadine Florez MD [address] [place] [address] Chronic embolism and thrombosis of unspecified vein [...] PM EST [facility] [address] [place] [address] Aide Linares NP [address] [place] [address] documented as of this encounter Procedures Procedure Name Priority Date/Time Associated Diagnosis Comments PROTHROMBIN TIME WITH INR Routine 09/19/2024 7:48 AM EST Chronic embolism and thrombosis of unspecified vein documented in this encounter Results * (ABNORMAL) Prothrombin time with INR (09/19/2024 7:48 AM EST) Protime 27.7(H) 10.6 - 13.9 sec LAB COAGULATION METHOD 09/19/2024 9:51 AM EST [facility] INR 2.2 LAB COAGULATION METHOD 09/19/2024 9:51 AM EST [facility] Blood Venous blood specimen / Unknown Venipuncture / Unknown 09/19/2024 7:48 AM EST 09/19/2024 8:29 AM EST us Bernadine Florez MD LAB BLOOD ORDERABLES Final Resul t [facility] [address] [place] [address], documented in this encounter Visit Diagnoses Diagnosis Chronic embolism and thrombosis of unspecified vein documented in this encounter Additional Health Concerns Infection Onset Date Last Indicated Resolved Time Tuberculosis Rule-Out 01/12/2025 01/12/20252024 7:05 PM EDT documented as of this encounter Care Teams Medical Staff Services Coordinator Relationship Specialty Start Date End Date Le Recinos DO [address] [place] [address] PCP - General 04/28/24 documented as of this encounter
--- OUTSIDE RECORDS SUMMARY | 2025-05-17 06:29 | XMS_ITS | Encounter Summary ---
Author Organization [facility] Address [address] [place] [address] Care Team Providers Care Fishing Vessel Operator Name Role Phone JorjeLe Primary Care Provider [phone] Encounter Details Date Type Department Care Team (Late st Contact Info) Description 10/06/2024 Lab Requisition [facility] - Main Lab [address] [place] [address] Bernadine Florez MD [address] [place], [place] [id number] Unspecified atrial fibrillation (CMS/HCC V24, CMS/HCC V28) [...] PM EST [facility] [address] [place] [address] Aide Linares NP [address] [place] [address] documented as of this encounter Procedures Procedure Name Priority Date/Time Associated Diagnosis Comments PROTHROMBIN TIME WITH INR Routine 10/07/2024 6:15 AM EDT Unspecified atrial fibrillation (CMS/HCC) documented in this encounter Results * (ABNORMAL) Prothrombin time with INR (10/07/2024 6:15 AM EDT) Protime 43.1(H) 10.6 - 13.9 sec LAB COAGULATION METHOD 10/07/2024 10:22 AM EDT [facility] INR 3.5 LAB COAGULATION METHOD 10/07/2024 10:22 AM EDT [facility] Blood Venous blood specimen / Unknown Venipuncture / Unknown 10/07/2024 6:15 AM EDT 10/07/2024 8:47 AM EDT us Bernadine Florez MD LAB BLOOD ORDERABLES Final Resul t [facility] [address] [place] [address], documented in this encounter Visit Diagnoses Diagnosis Unspecified atrial fibrillation (CMS/HCC V24, CMS/HCC V28) documented in this encounter Additional Health Concerns Infection Onset Date Last Indicated Resolved Time Tuberculosis Rule-Out 01/12/2025 01/12/20252024 7:05 PM EDT documented as of this encounter Care Teams Fishing Vessel Operator Relationship Specialty Start Date End Date Le Recinos DO [address] [place] [address] PCP - General 04/28/24 documented as of this encounter
--- OUTSIDE RECORDS SUMMARY | 2025-05-17 06:29 | XMS_ITS | Encounter Summary ---
Author Organization [facility] Address [address] [place] [address] Care Team Providers Care Natural Resources Specialist Name Role Phone JorjeLe Primary Care Provider [phone] Encounter Details Date Type Department Care Team (Late st Contact Info) Description 09/21/2024 Lab Requisition [facility] - Main Lab [address] [place] [address] Mukul Connolly PA [facility] [address] [place] [address] Unspecified atrial fibrillation (CMS/HCC V24, CMS/HCC V28) [...] PM EST [facility] [address] [place], [place] [phone] Aide Linares, LEWIS [address] [place] [address] documented as of this encounter Procedures Procedure Name Priority Date/Time Associated Diagnosis Comments PROTHROMBIN TIME WITH INR Routine 09/21/2024 8:38 AM EST Unspecified atrial fibrillation (CMS/HCC) documented in this encounter Results * (ABNORMAL) Prothrombin time with INR (09/21/2024 8:38 AM EST) Protime 15.8(H) 10.6 - 13.9 sec LAB COAGULATION METHOD 09/21/2024 11:25 AM EST [facility] INR 1.3 LAB COAGULATION METHOD 09/21/2024 11:25 AM EST [facility] Blood Venous blood specimen / Unknown Venipuncture / Unknown 09/21/2024 8:38 AM EST 09/21/2024 10:37 AM EST us Mukul TREJO LAB BLOOD ORDERABLES Belnida l Result [facility] [address] [place] [address], documented in this encounter Visit Diagnoses Diagnosis Unspecified atrial fibrillation (CMS/HCC V24, CMS/HCC V28) documented in this encounter Additional Health Concerns Infection Onset Date Last Indicated Resolved Time Tuberculosis Rule-Out 01/12/2025 01/12/20252024 7:05 PM EDT documented as of this encounter Care Teams Natural Resources Specialist Relationship Specialty Start Date End Date Le Recinos DO [address] [place] [address] PCP - General 04/28/24 documented as of this encounter
--- OUTSIDE RECORDS SUMMARY | 2025-05-17 06:29 | XMS_ITS | Encounter Summary ---
Author Organization [facility] Address [address] [place] [address] Care Team Providers Care Manager Bakery Name Role Phone JorjeLe Primary Care Provider [phone] Encounter Details Date Type Department Care Team (Late st Contact Info) Description 10/17/2024 Lab Requisition [facility] - Main Lab [address] [place] [address] Bernadine Florez MD [address] [place], [place] [phone] Unspecified atrial fibrillation (CMS/HCC V24, CMS/HCC V28) [...] PM EST [facility] [address] [place] [address] Aide Linares NP [address] [place] [address] documented as of this encounter Procedures Procedure Name Priority Date/Time Associated Diagnosis Comments PROTHROMBIN TIME WITH INR Routine 10/18/2024 6:59 AM EDT Unspecified atrial fibrillation (CMS/HCC) documented in this encounter Results * (ABNORMAL) Prothrombin time with INR (10/18/2024 6:59 AM EDT) Protime 24.7(H) 10.6 - 13.9 sec LAB COAGULATION METHOD 10/18/2024 10:43 AM EDT [facility] INR 2.0 LAB COAGULATION METHOD 10/18/2024 10:43 AM EDT [facility] Blood Venous blood specimen / Unknown Venipuncture / Unknown 10/18/2024 6:59 AM EDT 10/18/2024 9:34 AM EDT us Bernadine Florez MD LAB BLOOD ORDERABLES Final Resul t [facility] [address] [place] [address], documented in this encounter Visit Diagnoses Diagnosis Unspecified atrial fibrillation (CMS/HCC V24, CMS/HCC V28) documented in this encounter Additional Health Concerns Infection Onset Date Last Indicated Resolved Time Tuberculosis Rule-Out 01/12/2025 01/12/20252024 7:05 PM EDT documented as of this encounter Care Teams Manager Bakery Relationship Specialty Start Date End Date Le Recinos DO [address] [place] [address] PCP - General 04/28/24 documented as of this encounter
== END 2025-05-17 06:26 | disposition home or self-care (01) ==
LOC: CF 06:25
PROVIDERS: Visit Provider Anesthesiology
DX: S32.010G Wedge compression fracture of first lumbar vertebra, subsequent encounter for fracture with delayed healing (principal); M47.816 Spondylosis without myelopathy or radiculopathy, lumbar region; M81.0 Age-related osteoporosis without current pathological fracture; M46.1 Sacroiliitis, not elsewhere classified; M53.3 Sacrococcygeal disorders, not elsewhere classified; G89.4 Chronic pain syndrome; X58.XXXD Exposure to other specified factors, subsequent encounter
CPT/HCPCS: 27096; J2003; J2795; Q9967

== ENCOUNTER 2025-05-17 12:37 | Outpatient (AMB) | payer BC, SELFPAY ==
--- OUTSIDE RECORDS SUMMARY | 2025-04-28 14:30 | XMS_ITS | Encounter Summary ---
Author Organization [facility] Address [address] [place] [address] Care Team Providers Care Manager Basketball Name Role Phone JorjeLe Primary Care Provider [phone] Encounter Details Date Type Department Care Team (Latest Contact Info) Description 04/28/2025 2:30 PM EDT Anticoagulation - Warfarin Visit [facility] [place] [phone] Deep vein thrombosis (DVT) of distal vein [...] Preferred lab: -- Send INR reminders to: [facility] ANTICO[facility]ATION POOL Comments: -- Anticoagulation Care Providers Provider Role Specialty Phone number Le Recinos DO [facility] Internal Medicine [phone] Patient presents for follow-up of ongoing Warfarin [...] PM EST [facility] [address] [place] [address] Aide Linares NP [address] [place] [address] documented as of this encounter Procedures Procedure [...] state documented in this encounter Care Teams Manager Basketball Relationship Specialty Start Date End Date Le Recinos DO [address] [place] [address] PCP - General 04/28/24 documented as of this encounter
[2025-05-17 12:38] VITALS: BP 115/64; PULSE 93; RESP 16; O2SAT 95; BMI 23.1
--- NOTE | 2025-05-17 12:38 | MHC.OFFVIS ---
Vital Signs 05/17/25 12:38 05/17/25 13:44 Height 5 ft 11 in Weight 166 lb BMI 23.1 BP 115/64 101/59 L Blood Pressure Location Lt brachial Lt brachial Position Sitting Sitting Respiration 16 16 Pulse 93 92 Pulse Source Pulse Oximeter Pulse Oximeter Pulse Oximetry (%) 95 99 Oxygen Delivery Method Room Air Room Air Intake Visit Reasons: Right Diagnostic SIJ Injection Allergies No Known Allergies Allergy (Verified 04/13/25 14:06) Physical Exam Vital Signs: Last Vital Signs Pulse 92 05/17/25 13:44 Resp 16 05/17/25 13:44 BP 101/59 L 05/17/25 13:44 Pulse Ox 99 05/17/25 13:44 Oxygen Delivery Method Room Air 05/17/25 13:44 BMI result Body Mass Index 23.1 Assessment & Plan Assessment & Plan (1) Compression fracture of L1 vertebra with delayed healing: Code(s): S32.010G - Wedge compression fracture of first lumbar vertebra, subsequent encounter for fracture with delayed healing Category: Medical (2) Spondylosis without myelopathy or radiculopathy, lumbar region: Code(s): M47.816 - Spondylosis without myelopathy or radiculopathy, lumbar region Category: Medical (3) Chronic pain syndrome: Code(s): G89.4 - Chronic pain syndrome Category: Medical (4) Osteoporosis: Code(s): M81.0 - Age-related osteoporosis without current pathological fracture Category: Medical (5) Sacroiliitis: Code(s): M46.1 - Sacroiliitis, not elsewhere classified Category: Medical (6) Sacroiliac joint dysfunction of right side: Code(s): M53.3 - Sacrococcygeal disorders, not elsewhere classified Category: Medical Plan Right diagnose sacroiliac joint injection. Sly is 74 years old gentleman suffering from sacroiliitis and sacroiliac joint dysfunction of the right. She came today to the operating room to receive diagnostic right SI joint injection. Informed consent was thoroughly explained to the patient risks and benefits were explained. The patient was positioned prone on the operating table with pillow under her abdomen. The lower back and upper buttocks were prepped with ChloraPrep and draped with sterile self adhesive utility towels. C-arm was brought over the operating field and sq picture of the right sacroiliac joint was demonstrated on the screen. Tilting C-arm contralateral to the left the posterior silhouette of the sacroiliac joint was superimposed on anterior silhouette of the sacroiliac joint. Slightly medial to the projection of the joint to the skin injection of the local anesthetic lidocaine 2% mixed with ropivacaine 0.5% was performed. After that 22 gauge 3-1/2 inch needle was driven to were the point of interest in tunnel vision fashion. When tip of the needle entered posterior capsule of the joint injection of the contrast was performed delineating arthrogram. After that injection of the ropivacaine 0.5% 5 mL was performed. Upon completion of the injection needle was withdrawn sterile Band-Aid was applied. The patient tolerated the procedure well. Orders: Orders FL guidance in treatment room Today M46.1 - Sacroiliitis, not elsewhere classified Coding Level of Care Code Procedure Only Diagnoses Compression fracture of L1 vertebra with delayed healing S32.010G Spondylosis without myelopathy or radiculopathy, lumbar region M47.816 Chronic pain syndrome G89.4 Osteoporosis M81.0 Sacroiliitis M46.1 Sacroiliac joint dysfunction of right side M53.3
[2025-05-17 13:44] VITALS: BP 101/59; PULSE 92; RESP 16; O2SAT 99
--- OUTSIDE RECORDS SUMMARY | 2025-05-17 15:52 | XMS_ITS | Encounter Summary ---
Author Organization [facility] Address [address] [place] [address] Care Team Providers Care Psychologist Educational Name Role Phone JorjeLe Primary Care Provider [phone] Encounter Details Date Type Department Care Team (Late st Contact Info) Description 10/27/2024 Lab Requisition [facility] - Main Lab [address] [place] [address] Bernadine Florez MD [address] [place], [place] [phone] Unspecified atrial fibrillation (CMS/HCC V24, CMS/HCC V28) [...] PM EST [facility] [address] [place] [address] Aide Linares NP [address] [place] [address] documented as of this encounter Procedures Procedure Name Priority Date/Time Associated Diagnosis Comments PROTHROMBIN TIME WITH INR Routine 10/28/2024 5:32 AM EDT Unspecified atrial fibrillation (CMS/HCC) documented in this encounter Results * (ABNORMAL) Prothrombin time with INR (10/28/2024 5:32 AM EDT) Protime 25.5(H) 10.6 - 13.9 sec LAB COAGULATION METHOD 10/28/2024 10:39 AM EDT [facility] INR 2.1 LAB COAGULATION METHOD 10/28/2024 10:39 AM EDT [facility] Blood Venous blood specimen / Unknown Venipuncture / Unknown 10/28/2024 5:32 AM EDT 10/28/2024 9:27 AM EDT us Bernadine Florez MD LAB BLOOD ORDERABLES Final Resul t [facility] [address] [place] [address], documented in this encounter Visit Diagnoses Diagnosis Unspecified atrial fibrillation (CMS/HCC V24, CMS/HCC V28) documented in this encounter Additional Health Concerns Infection Onset Date Last Indicated Resolved Time Tuberculosis Rule-Out 01/12/2025 01/12/20252024 7:05 PM EDT documented as of this encounter Care Teams Psychologist Educational Relationship Specialty Start Date End Date Le Recinos DO [address] [place] [address] PCP - General 04/28/24 documented as of this encounter
--- OUTSIDE RECORDS SUMMARY | 2025-05-17 15:52 | XMS_ITS | Encounter Summary ---
Author Organization [facility] Address [address] [place] [address] Care Team Providers Care Library Customer Service Clerk Name Role Phone JorjeLe Primary Care Provider [phone] Encounter Details Date Type Department Care Team (Late st Contact Info) Description 10/29/[address] [facility] - Main Lab [address] [place] [address] Bernadine Florez MD [address] [place], [place] [phone] Unspecified atrial fibrillation (CMS/HCC V24, CMS/HCC V28) [...] PM EST Office Visit Internal Medicine - [facility] [address] [facility] [place] [address] Aide Linares, LEWIS [address] [place] [address] documented as of this encounter Visit Diagnoses Diagnosis Unspecified atrial fibrillation (CMS/HCC V24, CMS/HCC V28) documented in this encounter Additional Health Concerns Infection Onset Date Last Indicated Resolved Time Tuberculosis Rule-Out 01/12/2025 01/12/20252024 7:05 PM EDT documented as of this encounter Care Teams Library Customer Service Clerk Relationship Specialty Start Date End Date Le Recinos DO [address] [place] [address] PCP - General 04/28/24 documented as of this encounter
--- OUTSIDE RECORDS SUMMARY | 2025-05-17 15:52 | XMS_ITS | Encounter Summary ---
Author Organization [facility] Address [address] [place] [address] Care Team Providers Care Call Or Contact Centre Team Leader Name Role Phone FerozLe gomes Primary Care Provider [phone] Encounter Details Date Type Department Care Team (Late st Contact Info) Description 10/23/2024 Lab Requisition [facility] - Main Lab [address] [place] [address] Bernadine Florez MD [address] [place], [place] [phone] Unspecified atrial fibrillation (CMS/HCC V24, [...] PM EST [facility] [address] [place] [address] Aide Linares NP [address] [place] [address] documented as of this encounter Procedures Procedure Name Priority Date/Time Associated Diagnosis Comments PROTHROMBIN TIME WITH INR Routine 10/25/2024 6:52 AM EDT Unspecified atrial fibrillation (CMS/HCC) documented in this encounter Results * (ABNORMAL) Prothrombin time with INR (10/25/2024 6:52 AM EDT) Protime 27.0(H) 10.6 - 13.9 sec LAB COAGULATION METHOD 10/25/2024 9:52 AM EDT [facility] INR 2.2 LAB COAGULATION METHOD 10/25/2024 9:52 AM EDT [facility] Blood Venous blood specimen / Unknown Venipuncture / Unknown 10/25/2024 6:52 AM EDT 10/25/2024 9:17 AM EDT us Bernadine Florez MD LAB BLOOD ORDERABLES Final Resul t [facility] [address] [place] [address], documented in this encounter Visit Diagnoses Diagnosis Unspecified atrial fibrillation (CMS/HCC V24, CMS/HCC V28) documented in this encounter Additional Health Concerns Infection Onset Date Last Indicated Resolved Time Tuberculosis Rule-Out 01/12/2025 01/12/20252024 7:05 PM EDT documented as of this encounter Care Teams Call Or Contact Centre Team Leader Relationship Specialty Start Date End Date Le Recinos DO [address] [place] [address] PCP - General 04/28/24 documented as of this encounter
--- OUTSIDE RECORDS SUMMARY | 2025-05-17 15:52 | XMS_ITS | Clinical Summary ---
Author Organization [facility] Address [address] [place] [address] Care Team Providers Care Spa Host Name Role Phone Caterina Sena MD Primary [...] age to complete this topic Care Teams Spa Host Relationship Specialty Start Date End Date Caterina Sena MD PCP - General Family Medicine 04/07/23
--- OUTSIDE RECORDS SUMMARY | 2025-05-17 15:52 | XMS_ITS | Encounter Summary ---
Author Organization [facility] Address [address] [place] [address] Care Team Providers Care Credit Reference Clerk Name Role Phone JorjeLe Primary Care Provider [phone] Encounter Details Date Type Department Care Team (Late st Contact Info) Description 10/13/2024 Lab Requisition [facility] - Main Lab [address] [place] [address] Bernadine Florez MD [address] [place], [place] [phone] Unspecified atrial fibrillation (CMS/HCC V24, CMS/HCC V28) [...] PM EST [facility] [address] [place] [address] Aide Linares NP [address] [place] [address] documented as of this encounter Procedures Procedure Name Priority Date/Time Associated Diagnosis Comments PROTHROMBIN TIME WITH INR Routine 10/14/2024 9:47 AM EDT Unspecified atrial fibrillation (CMS/HCC) documented in this encounter Results * (ABNORMAL) Prothrombin time with INR (10/14/2024 9:47 AM EDT) Protime 17.7(H) 10.6 - 13.9 sec LAB COAGULATION METHOD 10/14/2024 11:09 AM EDT [facility] INR 1.4 LAB COAGULATION METHOD 10/14/2024 11:09 AM EDT [facility] Blood Venous blood specimen / Unknown Venipuncture / Unknown 10/14/2024 9:47 AM EDT 10/14/2024 10:59 AM EDT us Bernadine Florez MD LAB BLOOD ORDERABLES Final Resul t [facility] [address] [place] [address], documented in this encounter Visit Diagnoses Diagnosis Unspecified atrial fibrillation (CMS/HCC V24, CMS/HCC V28) documented in this encounter Additional Health Concerns Infection Onset Date Last Indicated Resolved Time Tuberculosis Rule-Out 01/12/2025 01/12/20252024 7:05 PM EDT documented as of this encounter Care Teams Credit Reference Clerk Relationship Specialty Start Date End Date Le Recinos DO [address] [place] [address] PCP - General 04/28/24 documented as of this encounter
--- OUTSIDE RECORDS SUMMARY | 2025-05-17 15:52 | XMS_ITS | Encounter Summary ---
Author Organization [facility] Address [address] [place] [address] Care Team Providers Care General Cleaner Name Role Phone JorjeLe Primary Care Provider [phone] Encounter Details Date Type Department Care Team (Late st Contact Info) Description 10/17/2024 Lab Requisition [facility] - Main Lab [address] [place] [address] Bernadine Florez MD [address] [place], [place] [phone] Unspecified atrial fibrillation (CMS/HCC V24, CMS/HCC V28) [...] EST Office [facility] [address] [place] [address] Aide Linares NP [address] [place] [address] documented as of this encounter Procedures Procedure Name Priority Date/Time Associated Diagnosis Comments PROTHROMBIN TIME WITH INR Routine 10/18/2024 6:59 AM EDT Unspecified atrial fibrillation (CMS/HCC) documented in this encounter Results * (ABNORMAL) Prothrombin time with INR (10/18/2024 6:59 AM EDT) Protime 24.7(H) 10.6 - 13.9 sec LAB COAGULATION METHOD 10/18/2024 10:43 AM EDT [facility] INR 2.0 LAB COAGULATION METHOD 10/18/2024 10:43 AM EDT [facility] Blood Venous blood specimen / Unknown Venipuncture / Unknown 10/18/2024 6:59 AM EDT 10/18/2024 9:34 AM EDT us Bernadine Florez MD LAB BLOOD ORDERABLES Final Resul t [facility] [address] [place] [address], documented in this encounter Visit Diagnoses Diagnosis Unspecified atrial fibrillation (CMS/HCC V24, CMS/HCC V28) documented in this encounter Additional Health Concerns Infection Onset Date Last Indicated Resolved Time Tuberculosis Rule-Out 01/12/2025 01/12/20252024 7:05 PM EDT documented as of this encounter Care Teams General Cleaner Relationship Specialty Start Date End Date Le Recinos DO [address] [place] [address] PCP - General 04/28/24 documented as of this encounter
--- OUTSIDE RECORDS SUMMARY | 2025-05-17 15:52 | XMS_ITS | Encounter Summary ---
Author Organization [facility] Address [address] [place] [address] Care Team Providers Care Race Engine Builder Name Role Phone JorjeLe Primary Care Provider [phone] Encounter Details Date Type Department Care Team (Late st Contact Info) Description 09/21/2024 Lab Requisition [facility] - Main Lab [address] [place] [address] Mukul Connolly PA [facility] [address] [facility] [address] [place] [address] Unspecified atrial fibrillation (CMS/HCC V24, CMS/HCC V28) [...] PM EST [facility] [address] [place], [place] [phone] Aide Linares, LEWIS [address] [place] [address] documented as of this encounter Procedures Procedure Name Priority Date/Time Associated Diagnosis Comments PROTHROMBIN TIME WITH INR Routine 09/21/2024 8:38 AM EST Unspecified atrial fibrillation (CMS/HCC) documented in this encounter Results * (ABNORMAL) Prothrombin time with INR (09/21/2024 8:38 AM EST) Protime 15.8(H) 10.6 - 13.9 sec LAB COAGULATION METHOD 09/21/2024 11:25 AM EST [facility] INR 1.3 LAB COAGULATION METHOD 09/21/2024 11:25 AM EST [facility] Blood Venous blood specimen / Unknown Venipuncture / Unknown 09/21/2024 8:38 AM EST 09/21/2024 10:37 AM EST us Mukul TREJO LAB BLOOD ORDERABLES Belinda l Result [facility] [address] [place] [address], documented in this encounter Visit Diagnoses Diagnosis Unspecified atrial fibrillation (CMS/HCC V24, CMS/HCC V28) documented in this encounter Additional Health Concerns Infection Onset Date Last Indicated Resolved Time Tuberculosis Rule-Out 01/12/2025 01/12/20252024 7:05 PM EDT documented as of this encounter Care Teams Race Engine Builder Relationship Specialty Start Date End Date Le Recinos DO [address] [place] [address] PCP - General 04/28/24 documented as of this encounter
--- OUTSIDE RECORDS SUMMARY | 2025-05-17 15:52 | XMS_ITS | Encounter Summary ---
Author Organization [facility] Address [address] [place] [address] Care Team Providers Care Reservoir Caretaker Name Role Phone JorjeLe Primary Care Provider [phone] Encounter Details Date Type Department Care Team (Late st Contact Info) Description 10/06/2024 Lab Requisition [facility] - Main Lab [address] [place] [address] Bernadine Florez MD [address] [place], [place] [phone] Unspecified atrial fibrillation (CMS/HCC V24, CMS/HCC V28) [...] PM EST [facility] [address] [place] [address] Aide Linares NP [address] [place] [address] documented as of this encounter Procedures Procedure Name Priority Date/Time Associated Diagnosis Comments PROTHROMBIN TIME WITH INR Routine 10/07/2024 6:15 AM EDT Unspecified atrial fibrillation (CMS/HCC) documented in this encounter Results * (ABNORMAL) Prothrombin time with INR (10/07/2024 6:15 AM EDT) Protime 43.1(H) 10.6 - 13.9 sec LAB COAGULATION METHOD 10/07/2024 10:22 AM EDT [facility] INR 3.5 LAB COAGULATION METHOD 10/07/2024 10:22 AM EDT [facility] Blood Venous blood specimen / Unknown Venipuncture / Unknown 10/07/2024 6:15 AM EDT 10/07/2024 8:47 AM EDT us Bernadine Florez MD LAB BLOOD ORDERABLES Final Resul t [facility] [address] [place] [address], documented in this encounter Visit Diagnoses Diagnosis Unspecified atrial fibrillation (CMS/HCC V24, CMS/HCC V28) documented in this encounter Additional Health Concerns Infection Onset Date Last Indicated Resolved Time Tuberculosis Rule-Out 01/12/2025 01/12/20252024 7:05 PM EDT documented as of this encounter Care Teams Reservoir Caretaker Relationship Specialty Start Date End Date Le Recinos DO [address] [place] [address] PCP - General 04/28/24 documented as of this encounter
--- OUTSIDE RECORDS SUMMARY | 2025-05-17 15:52 | XMS_ITS | Encounter Summary ---
Author Organization [facility] Address [address] [place] [address] Care Team Providers Care Photovoltaic Testing Technician Name Role Phone JorjeLe Primary Care Provider [phone] Encounter Details Date Type Department Care Team (Late st Contact Info) Description 10/20/2024 Lab Requisition [facility] - Main Lab [address] [place] [address] Bernadine Florez MD [address] [place], [place] [phone] Unspecified atrial fibrillation (CMS/HCC V24, CMS/HCC V28) [...] PM EST [facility] [address] [place] [address] Aide Linares NP [address] [place] [address] documented as of this encounter Procedures Procedure [...] [facility] [address] [place] [address], documented in this encounter Visit Diagnoses Diagnosis Unspecified atrial fibrillation (CMS/HCC V24, CMS/HCC V28) documented in this encounter Additional Health Concerns Infection Onset Date Last Indicated Resolved Time Tuberculosis Rule-Out 01/12/2025 01/12/20252024 7:05 PM EDT documented as of this encounter Care Teams Photovoltaic Testing Technician Relationship Specialty Start Date End Date Le Recinos DO [address] [place] [address] PCP - General 04/28/24 documented as of this encounter
--- OUTSIDE RECORDS SUMMARY | 2025-05-17 15:52 | XMS_ITS | Encounter Summary ---
Author Organization [facility] Address [address] [place] [address] Care Team Providers Care Steaming Cabinet Tender Name Role Phone JorjeLe Primary Care Provider [phone] Encounter Details Date Type Department Care Team (Late st Contact Info) Description 09/19/2024 Lab Requisition [facility] - Main Lab [address] [place] [address] Bernadine Florez MD [address] [place] [address] Chronic embolism and thrombosis of unspecified vein [...] PM EST [facility] [address] [place] [address] Aide Linares NP [address] [place] [address] documented as of this encounter Procedures Procedure Name Priority Date/Time Associated Diagnosis Comments PROTHROMBIN TIME WITH INR Routine 09/19/2024 7:48 AM EST Chronic embolism and thrombosis of unspecified vein documented in this encounter Results * (ABNORMAL) Prothrombin time with INR (09/19/2024 7:48 AM EST) Protime 27.7(H) 10.6 - 13.9 sec LAB COAGULATION METHOD 09/19/2024 9:51 AM EST [facility] INR 2.2 LAB COAGULATION METHOD 09/19/2024 9:51 AM EST [facility] Blood Venous blood specimen / Unknown Venipuncture / Unknown 09/19/2024 7:48 AM EST 09/19/2024 8:29 AM EST us Bernadine Florez MD LAB BLOOD ORDERABLES Final Resul t [facility] [address] [place] [address], documented in this encounter Visit Diagnoses Diagnosis Chronic embolism and thrombosis of unspecified vein documented in this encounter Additional Health Concerns Infection Onset Date Last Indicated Resolved Time Tuberculosis Rule-Out 01/12/2025 01/12/20252024 7:05 PM EDT documented as of this encounter Care Teams Steaming Cabinet Tender Relationship Specialty Start Date End Date Le Recinos DO [address] [place] [address] PCP - General 04/28/24 documented as of this encounter
--- OUTSIDE RECORDS SUMMARY | 2025-05-17 15:52 | XMS_ITS | Encounter Summary ---
Author Organization [facility] Address [address] [place] [address] Care Team Providers Care Material Coordinator Name Role Phone FerozLe gomes Primary Care Provider [phone] Encounter Details Date Type Department Care Team (Late st Contact Info) Description 09/20/2024 Lab Requisition [facility] - Main Lab [address] [place] [address] Bernadine Florez MD [address] [place], [place] [phone] residential (current) use of anticoagulants; Unspecified Escherichia coli [...] EST Office Visit Internal Medicine - [facility] [address] [facility] [place] [address] Aide Linares, LEWIS [address] [place] [address] documented as of this encounter Procedures Procedure Name Priority Date/Time Associated Diagnosis Comments PROTHROMBIN TIME WITH INR Routine 09/20/2024 7:20 AM 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 coli) as the cause of diseases classified elsewhere COMPLETE BLOOD COUNT Routine 09/20/2024 7:20 AM EST residential (current) use of anticoagulants Unspecified Escherichia coli (E. coli) as the cause of diseases classified elsewhere COMPREHENSIVE METABOLIC PANEL Routine 09/20/2024 7:20 AM EST residential (current) use of anticoagulants Unspecified Escherichia coli (E. coli) as the cause of diseases classified elsewhere documented in this encounter Results * (ABNORMAL) Prothrombin time with INR (09/20/2024 7:20 AM EST) Protime 17.7(H) 10.6 - 13.9 sec LAB COAGULATION METHOD 09/20/2024 11:50 AM EST [facility] INR 1.4 LAB COAGULATION METHOD 09/20/2024 11:50 AM EST [facility] Blood Venous blood specimen / Unknown Venipuncture / Unknown 09/20/2024 7:20 AM EST 09/20/2024 10:54 AM EST us Bernadine Florez MD LAB BLOOD ORDERABLES Final Resul t [facility] [address] [place] [address], * (ABNORMAL) Comprehensive metabolic panel (09/20/2024 7:20 AM EST) Sodium 136 133 - 145 mmol/L LAB CHEMISTRY METHOD 09/20/2024 12:18 PM [facility] Potassium 3.9 3.5 - 5.5 mmol/L LAB CHEMISTRY METHOD 09/20/2024 12:18 PM [facility] Chloride 101 96 - 110 mmol/L LAB CHEMISTRY METHOD 09/20/2024 12:18 PM [facility] CO2 25 21 - 32 mmol/L LAB CHEMISTRY METHOD 09/20/2024 12:18 PM [facility] Anion Gap 10 3 - 11 LAB CHEMISTRY METHOD 09/20/2024 12:18 PM [facility] Glucose 99 70 - 100 mg/dL LAB CHEMISTRY METHOD 09/20/2024 12:18 PM [facility] BUN 20 5 - 25 mg/dL LAB CHEMISTRY METHOD 09/20/2024 12:18 PM [facility] Creatinine 0.81 0.70 - 1.30 mg/dL LAB CHEMISTRY METHOD 09/20/2024 12:18 PM [facility] eGFR 93 >=60 mL/min/1. 73m2 LAB CHEMISTRY METHOD 09/20/2024 12:18 PM [facility] Comment:Calculation based on the Chronic Kidney Disease Epidemiology Collaboration (CKD-EPI) equation refit without adjustment for race. BUN/Creatinine Ratio 24.7 LAB CHEMISTRY METHOD 09/20/2024 12:18 PM [facility] Calcium 9.1 8.5 - 10.5 mg/dL LAB CHEMISTRY METHOD 09/20/2024 12:18 PM [facility] AST (SGOT) 32 10 - 42 unit/L LAB CHEMISTRY METHOD 09/20/2024 12:18 PM [facility] ALT (SGPT) 28 10 - 60 unit/L LAB CHEMISTRY METHOD 09/20/2024 12:18 PM [facility] Alkaline Phosphatase 426(H) 42 - 121 unit/L LAB CHEMISTRY METHOD 09/20/2024 12:18 PM [facility] Total Protein 7.1 6.0 - 8.0 g/dL LAB CHEMISTRY METHOD 09/20/2024 12:18 PM [facility] Albumin 3.2 3.2 - 5.0 g/dL LAB CHEMISTRY METHOD 09/20/2024 12:18 PM [facility] Total Bilirubin 0.8 0.0 - 1.4 mg/dL LAB CHEMISTRY METHOD 09/20/2024 12:18 PM [facility] Blood Venous blood specimen / Unknown Venipuncture / Unknown 09/20/2024 7:20 AM EST 09/20/2024 10:54 AM EST us Bernadine Florez MD LAB BLOOD ORDERABLES Final Resul t [facility] [address] [place] [address], * (ABNORMAL) Complete blood count (09/20/2024 7:20 AM EST) WBC 8.1 4.8 - 10.8 K/mcL LAB HEMETOLOGY METHOD 09/20/2024 11:50 AM [facility] RBC 4.00(L) 4.50 - 5.50 M/mcL LAB HEMETOLOGY METHOD 09/20/2024 11:50 AM [facility] Hemoglobin 11.4(L) 13.5 - 17.5 g/dL LAB HEMETOLOGY METHOD 09/20/2024 11:50 AM [facility] Hematocrit 36.6(L) 42.0 - 54.0 % LAB HEMETOLOGY METHOD 09/20/2024 11:50 AM EST [facility] MCV 91.3 79.0 - 98.0 FL LAB HEMETOLOGY METHOD 09/20/2024 11:50 AM [facility] MCH 28.4 27.0 - 32.0 pcg LAB HEMETOLOGY METHOD 09/20/2024 11:50 AM [facility] MCHC 31.1(L) 32.0 - 37.0 g/dL LAB HEMETOLOGY METHOD 09/20/2024 11:50 AM [facility] RDW 14.5 11.0 - 15.0 % LAB HEMETOLOGY METHOD 09/20/2024 11:50 AM [facility] Platelets 263 130 - 400 K/mcL LAB HEMETOLOGY METHOD 09/20/2024 11:50 AM [facility] MPV 10.2 7.0 - 11.0 FL LAB HEMETOLOGY METHOD 09/20/2024 11:50 AM [facility] NRBC 0.0 <1.0 % LAB HEMETOLOGY METHOD 09/20/2024 11:50 AM [facility] NRBC Absolute 0.00 <0.10 K/mcL LAB HEMETOLOGY METHOD 09/20/2024 11:50 AM [facility] Blood Venous blood specimen / Unknown Venipuncture / Unknown 09/20/2024 7:20 AM EST 09/20/2024 10:54 AM EST us Bernadine Florez MD LAB BLOOD ORDERABLES Final Resul t [facility] [address] [place] [address], documented in this encounter Visit Diagnoses Diagnosis residential (current) use of anticoagulants Long-term (current) use of anticoagulants Unspecified Escherichia coli (E. coli) as the cause of diseases classified elsewhere documented in this encounter Additional Health Concerns Infection Onset Date Last Indicated Resolved Time Tuberculosis Rule-Out 01/12/2025 01/12/20252024 7:05 PM EDT documented as of this encounter Care Teams Material Coordinator Relationship Specialty Start Date End Date Le Recinos DO [address] [place] [address] PCP - General 04/28/24 documented as of this encounter
--- OUTSIDE RECORDS SUMMARY | 2025-05-17 15:53 | XMS_ITS | Encounter Summary ---
Author Organization [facility] Address [address] [place] [address] Care Team Providers Care Gas Main And Line Fitter Name Role Phone JorjeLe Primary Care Provider [phone] Encounter Details Date Type Department Care Team (Late st Contact Info) Description 09/21/2024 Lab Requisition [facility] - Main Lab [address] [place] [address] Bernadine Florez MD [address] [place], [place] [phone] Unspecified atrial fibrillation (CMS/HCC V24, CMS/HCC V28) [...] Office Visit Internal Medicine - [facility] [address] [facility] [place] [address] Aide Linares, LEWIS [address] [place] [address] documented as of this encounter Visit Diagnoses Diagnosis Unspecified atrial fibrillation (CMS/HCC V24, CMS/HCC V28) documented in this encounter Additional Health Concerns Infection Onset Date Last Indicated Resolved Time Tuberculosis Rule-Out 01/12/2025 01/12/20252024 7:05 PM EDT documented as of this encounter Care Teams Gas Main And Line Fitter Relationship Specialty Start Date End Date Le Recinos DO [address] [place] [address] PCP - General 04/28/24 documented as of this encounter
--- OUTSIDE RECORDS SUMMARY | 2025-05-17 15:53 | XMS_ITS | Encounter Summary ---
Author Organization [facility] Address [address] [place] [address] Care Team Providers Care Human Resources Director Name Role Phone Jorje Le Primary Care Provider Reason for Visit * Reason Onset Date Comments Procedure 04/29/2025 05/17/2025 RIGHT DIAGNOSTIC SIJ [facility] BRDIGE Encounter Details Date Type Department Care Team (Late st Contact Info) Description 04/29/2025 Telephone [facility] [address] [address] Divina Lozoya LPN Social History [...] Office Visit Internal Medicine - [facility] [address] [facility] [place] [address] Aide Linares, LEWIS [address] [place] [address] documented as of this encounter Visit Diagnoses Not on filedocumented in this encounter Care Teams Human Resources Director Relationship Specialty Start Date End Date Le Recinos DO [address] [place], [place] [address] [place] [address] PCP - General 04/28/24 documented as of this encounter
--- OUTSIDE RECORDS SUMMARY | 2025-05-17 15:53 | XMS_ITS ---
Author Organization [place] [address] [facility] Building Address [address] [place] [phone] Phone Care Team Providers Care Generator Technician Name Role Phone Le Recinos DO Primary Care Provider [phone] Active Problems Problem Noted Date Diagnosed Date [...] Z-Savage. 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 He certainly will have to stop his Coumadin 5 days prior to operation but the question of a bridge or what to bridge with. Aortic root dilatation (CMS/HCC V24) 01/24/2023 Coronary artery disease invo lving [place] coronary artery of [place] heart without angina pectoris 06/20/2022 Mixed hyperlipidemia 06/20/2022 Primary hypertension 04/23/2022 Coronary artery disease due to calcified coronar y lesion 03/18/2022 Lab test positive for detection of COVID-19 viru s 07/11/2021 Overview (05/31/2024): 07/03/21, [facility] 07/03/21 Thoracic aortic aneurysm (CMS/HCC V24) Elevated LFTs 11/27/2020 IBS (irritable bowel syndrome) 02/03/2020 Overview (05/31/2024): Diarrhea predominant Chronic diarrhea 12/23/2019 Fatty liver 07/09/2019 Nephrolithiasis 07/09/2019 Diplopia 06/26/2017 Overview (05/31/2024): 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 Neg CN 2004. Small polyps x 2 at CN 05/13/2011: Pathology report: Tubular adenomas x 2. 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
--- OUTSIDE RECORDS SUMMARY | 2025-05-17 15:53 | XMS_ITS | Encounter Summary ---
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; Chronic obstructive pulmonary [...] PM EST Office Visit Internal Medicine - [facility] [address] [place], [place] [phone] Aide Linares NP [address] [place] [address] documented as of this encounter Procedures Procedure Name Priority Date/Time Associated Diagnosis Comments PROTHROMBIN TIME WITH INR Routine 10/06/2024 8:29 AM EDT Essential (primary) hypertension 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 Chronic obstructive pulmonary disease, unspecified (CMS/HCC) COMPLETE BLOOD COUNT Routine 10/06/2024 8:29 AM EDT Essential (primary) hypertension FPC (current) use of anticoagulants Chronic obstructive pulmonary disease, unspecified (CMS/HCC) BASIC METABOLIC PANEL Routine 10/06/2024 8:29 AM EDT Essential (primary) hypertension FPC (current) use of anticoagulants Chronic obstructive pulmonary disease, unspecified (CMS/HCC) documented in this encounter Results * (ABNORMAL) Basic metabolic panel (10/06/2024 8:29 AM EDT) Sodium 137 133 - 145 mmol/L LAB CHEMISTRY METHOD 10/06/2024 1:22 PM EDT [facility] Potassium 4.4 3.5 - 5.5 mmol/L LAB CHEMISTRY METHOD 10/06/2024 1:22 PM EDT [facility] Chloride 106 96 - 110 mmol/L LAB CHEMISTRY METHOD 10/06/2024 1:22 PM EDT [facility] CO2 21 21 - 32 mmol/L LAB CHEMISTRY METHOD 10/06/2024 1:22 PM EDT [facility] Anion Gap 10 3 - 11 LAB CHEMISTRY METHOD 10/06/2024 1:22 PM EDT [facility] Glucose 116(H) 70 - 100 mg/dL LAB CHEMISTRY METHOD 10/06/2024 1:22 PM EDT [facility] BUN 12 5 - 25 mg/dL LAB CHEMISTRY METHOD 10/06/2024 1:22 PM EDT [facility] Creatinine 0.84 0.70 - 1.30 mg/dL LAB CHEMISTRY METHOD 10/06/2024 1:22 PM EDT [facility] eGFR 92 >=60 mL/min/1. 73m2 LAB CHEMISTRY METHOD 10/06/2024 1:22 PM EDT [facility] Comment:Calculation based on the Chronic Kidney Disease Epidemiology Collaboration (CKD-EPI) equation refit without adjustment for race. BUN/Creatinine Ratio 14.3 LAB CHEMISTRY METHOD 10/06/2024 1:22 PM EDT [facility] Calcium 8.8 8.5 - 10.5 mg/dL LAB CHEMISTRY METHOD 10/06/2024 1:22 PM EDT [facility] Blood Venous blood specimen / Unknown Venipuncture / Unknown 10/06/2024 8:29 AM EDT 10/06/2024 10:25 AM EDT us Bernadine Florez MD LAB BLOOD ORDERABLES Final Resul t [facility] [address] [place] [address], * (ABNORMAL) Prothrombin time with INR (10/06/2024 8:29 AM EDT) Protime 46.4(H) 10.6 - 13.9 sec LAB COAGULATION METHOD 10/06/2024 12:04 PM EDT [facility] INR 3.8 LAB COAGULATION METHOD 10/06/2024 12:04 PM EDT [facility] Blood Venous blood specimen / Unknown Venipuncture / Unknown 10/06/2024 8:29 AM EDT 10/06/2024 10:25 AM EDT Bernadine Florez MD LAB BLOOD ORDERABLES Final Resul t [facility] [address] [place] [address], * (ABNORMAL) Complete blood count (10/06/2024 8:29 AM EDT) WBC 7.8 4.8 - 10.8 K/mcL LAB HEMETOLOGY METHOD 10/06/2024 11:56 AM EDT [facility] RBC 4.30(L) 4.50 - 5.50 M/mcL LAB HEMETOLOGY METHOD 10/06/2024 11:56 AM EDT [facility] Hemoglobin 12.2(L) 13.5 - 17.5 g/dL LAB HEMETOLOGY METHOD 10/06/2024 11:56 AM EDT [facility] Hematocrit 37.6(L) 42.0 - 54.0 % LAB HEMETOLOGY METHOD 10/06/2024 11:56 AM EDT [facility] MCV 87.4 79.0 - 98.0 FL LAB HEMETOLOGY METHOD 10/06/2024 11:56 AM EDT [facility] MCH 28.4 27.0 - 32.0 pcg LAB HEMETOLOGY METHOD 10/06/2024 11:56 AM EDT [facility] MCHC 32.4 32.0 - 37.0 g/dL LAB HEMETOLOGY METHOD 10/06/2024 11:56 AM EDT [facility] RDW 14.1 11.0 - 15.0 % LAB HEMETOLOGY METHOD 10/06/2024 11:56 AM EDT [facility] Platelets 259 130 - 400 K/mcL LAB HEMETOLOGY METHOD 10/06/2024 11:56 AM EDT [facility] MPV 10.5 7.0 - 11.0 FL LAB HEMETOLOGY METHOD 10/06/2024 11:56 AM EDT [facility] NRBC 0.0 <1.0 % LAB HEMETOLOGY METHOD 10/06/2024 11:56 AM EDT [facility] NRBC Absolute 0.00 <0.10 K/mcL LAB HEMETOLOGY METHOD 10/06/2024 11:56 AM EDT [facility] Blood Venous blood specimen / Unknown Venipuncture / Unknown 10/06/2024 8:29 AM EDT 10/06/2024 10:25 AM EDT Bernadine Florez MD LAB BLOOD ORDERABLES Final Resul t [facility] [address] [place] [address], documented in this encounter Visit Diagnoses Diagnosis Essential (primary) hypertension Unspecified essential 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
--- OUTSIDE RECORDS SUMMARY | 2025-05-17 15:53 | XMS_ITS | Clinical Summary ---
Author Organization [address] Pending sale to [facility] Building Address [address] [place] [phone] Phone Care Team Providers Care Senior Systems Programmer Name Role Phone Le Recinos DO Primary Care Provider [phone] Allergies No known active allergies Medications docusate [...] Z-Savage. Squamous cell carcinoma lung , left ([facility] V24, [facility]/HCC V28) 06/30/2023 Overview (05/31/2024): 04/30/2023 status post [...] I explained how the size, shape, and tack coverer time affect her level of suspicion for [...] that I will have him see his staff command and control officer for a risk assessment as well as a service attendant to give recommendations around anticoagulation around surgery. He certainly will have to stop his Coumadin 5 days prior to operation but the question of a bridge or what to bridge with. Aortic root dilatation ([facility] V24) 01/24/2023 Coronary artery disease invo lving mash[place] coronary artery of [place] heart without angina pectoris 06/20/2022 Mixed hyperlipidemia 06/20/2022 Primary hypertension 04/23/2022 Coronary artery disease due to calcified coronar y lesion 03/18/2022 Lab test positive for detection of COVID-19 viru s 07/11/2021 Overview (05/31/2024): 07/03/21, ADMITTED [facility] 07/03/21 Thoracic aortic aneurysm ([facility] V24) 1 Elevated LFTs 11/27/2020 IBS (irritable bowel syndrome) 02/03/2020 Overview (05/31/2024): Diarrhea predominant Chronic diarrhea 12/23/2019 Fatty liver 07/09/2019 Nephrolithiasis 07/09/2019 Diplopia 06/26/2017 Overview (05/31/2024): 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 Neg CN 2003. Small polyps x 2 at CN 05/13/2011: Pathology report: Tubular adenomas x 2. 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 Resolved Problems Problem Noted Date Diagnosed Date Resolved Date SBO (small bowel obstruction ) ([facility] V24, [facility] V28) 08/29/2024 09/16/2024 Encounters Date Type Department Care Team Description 05/13/2025 Anticoagulation - Warfarin Visit [facility] Clinic - [place] [address] [place] [phone] Divina Lozoya LPN Deep vein thrombosis (DVT) of distal vein of left lower extremity, unspecified chronicity (CMS/HCC V24, CMS/HCC V28) (Primary Dx); Factor V Leiden mutation ([facility] V24) 05/12/2025 [facility] [address] [place] [phone] Le Recinos DO 04/29/2025 Telephone Coumadin Clinic - [address] [phone] Divina Lozoya LPN 04/28/2025 2:30 PM EDT Anticoagulation - Warfarin Visit Coumadin [facility] - [address] [phone] Deep vein thrombosis (DVT) of distal vein of left lower extremity, unspecified chronicity ([facility]/HCC V24, [facility] V28) (Primary Dx); Factor V Leiden mutation ([facility] V24) 04/21/2025 1:45 PM EDT Anticoagulation - Warfarin Visit Coumadin Clinic - [address] [phone] Deep vein thrombosis (DVT) of distal vein of left lower extremity, unspecified chronicity (CMS/HCC V24, CMS/HCC V28) (Primary Dx); Factor V Leiden mutation (CMS/HCC V24) 04/14/2025 1:30 PM EDT Anticoagulation - Warfarin Visit [facility] [address] [phone] Deep vein thrombosis (DVT) of distal vein of left lower extremity, unspecified chronicity (CMS/HCC V24, CMS/HCC V28) (Primary Dx); Factor V Leiden mutation (CMS/HCC V24) 04/12/2025 2:45 PM EDT Office Visit Orthopedic Surgery [facility] [address] [facility] [address] [place] [phone] Mello Lewis MD Calcific tendinitis of left shoulder (Primary Dx) 04/11/2025 Anticoagulation - Warfarin Visit [facility] [address] [phone] Kiara Anderson LPN Deep vein thrombosis (DVT) of distal vein of left lower extremity, unspecified chronicity (CMS/HCC V24, CMS/HCC V28) (Primary Dx); Factor V Leiden mutation ([facility]/HCC V24) 04/08/2025 Anticoagulation - Warfarin Visit Coumadin [facility] [address] [place] [phone] Divina Lozoya LPN Deep vein thrombosis (DVT) of distal vein of left lower extremity, unspecified chronicity (CMS/HCC V24, CMS/HCC V28) (Primary Dx); Factor V Leiden mutation ([facility]/HCC V24) 04/08/2025 Telephone Coumadin [facility] [address] [place] [phone] Divina Lozoya LPN 04/04/2025 Anticoagulation - Warfarin Visit [facility] [address] [phone] Kiara Anderson LPN Deep vein thrombosis (DVT) of distal vein of left lower extremity, unspecified chronicity (CMS/HCC V24, CMS/HCC V28) (Primary Dx); Factor V Leiden mutation (CMS/HCC V24) 03/31/2025 1:00 PM EDT Anticoagulation - Warfarin Visit [facility] - [place] [address] [place] [phone] Deep vein thrombosis (DVT) of distal vein of left lower extremity, unspecified chronicity (CMS/HCC V24, CMS/HCC V28) (Primary Dx); Factor V Leiden mutation ([facility] V24) 03/25/2025 Anticoagulation - Warfarin Visit Coumadin [address] [phone] Kiara Anderson LPN Deep vein thrombosis (DVT) of distal vein of left lower extremity, unspecified chronicity (CMS/HCC V24, CMS/HCC V28) (Primary Dx); Factor V Leiden mutation ([facility] V24) [facility] [address] [place] [address] Divina Lozoya LPN 03/17/2025 1:30 PM EDT Anticoagulation - Warfarin Visit Coumadin [address] [phone] Deep vein thrombosis (DVT) of distal vein of left lower extremity, unspecified chronicity (CMS/HCC V24, CMS/HCC V28) (Primary Dx); Factor V Leiden mutation ([facility] V24) 02/24/2025 1:45 PM EDT Anticoagulation - Warfarin Visit [address] [phone] Deep vein thrombosis (DVT) of distal vein of left lower extremity, unspecified chronicity ([facility]/HCC V24, CMS/HCC V28) (Primary Dx); Factor V Leiden mutation ([facility] V24) from Last 3 Months Immunizations [...] polyps x2: Tubular adenoma x2. APPENDECTOMY PROCEDURE: HI APPENDECTOMY OTHER SURGICAL HISTORY 04/30/2023 Left PROCEDURE: HI THORACOSCOPY W/SEGMENTECTOMY; COMMENT: MARCIAL wedge w/ segmentectomy [...] COMMENT: Actinic keratosis 03/08 forehead 03/28 left jewish COPD (chronic obstructive pu lmonary disease) ([facility] V24, [facility] V28) DX:COPD (chronic o bstructive pulmonary disease) (HCC) Lung cancer ([facility] V24, [facility] V28) status post resection Hypertension Hyperlipidemia Factor V Leiden ([facility] V24) History of DVT (deep vein [...] PM EST [facility] [address] [place] [phone] Aide Linares, LEWIS [address] [place] [address] Health Maintenance Due Date Last Done Comments [...] this topic Medical Devices Implanted Type Area Resin Shaver Device Identifier Shelf Expiration Date Model / Serial / Lot Tray Rad Cath 1lum Poly 4f - [id number] Implanted:Qty: 1 on 09/08/2024 by Savanah Go MD at [facility] Central/Chloe pheral Catheters and Ports Right: Arm BD VASCULAR ACCESS DEVICES FKA BARD ACCESS [id number] 06/19/2026 [id number] / / [id number] Marker Cobra Superlock - Sn/A - [id number] Implanted:Qty: 1 on 01/12/2025 by Collette Avalos MD at [facility] Imaging Implants Left: Lung [employer] SUPERD[employer]ENS[employer] [id number] 11/01/2028 [id number] / N/A / [id number] Description:Left lower lobe Procedures Procedure Name Priority [...] V28) Factor V Leiden mutation (CMS/HCC V24) HI ARTHROCENTESIS/ASPI RATION/INJECTION MAJOR JOINT/BURSA W/O U/S GUIDANCE [...] LAB COAGULATION METHOD 05/13/2025 1:39 PM EDT [facility] INR 2.5 LAB COAGULATION METHOD 05/13/2025 1:39 PM EDT [facility] Blood Venous blood specimen / Unknown Venipuncture / Unknown 05/13/2025 11:21 AM EDT 05/13/2025 11:21 AM EDT Le Recinos DO LAB BLOOD ORDERABLES Final Res ult [facility] [address] [place] [address], [place] [phone] * POC Protime INR Blood (04/28/2025 2:28 PM EDT) Only the most recent of6 resultswithin the time period is included. Lot Number INR POC 2.4 Prothrombin Time POC Exp Date Blood 04/28/2025 2:28 PM EDT Bobby Mayfield NP POINT OF CARE TEST ENTER/EDIT ORDERABLES Final Result * HI ARTHROCENTESIS/ASPIRATION/INJECTION MAJOR JOINT/BURSA W/O U/S GUIDANCE (04/12/2025 [...] mmol/L LAB CHEMISTRY METHOD 12/20/2024 4:33 PM [facility] Potassium 3.9 3.5 - 5.5 mmol/L LAB CHEMISTRY METHOD 12/20/2024 4:33 PM [facility] Chloride 104 96 - 110 mmol/L LAB CHEMISTRY METHOD 12/20/2024 4:33 PM [facility] CO2 27 21 - 32 mmol/L LAB CHEMISTRY METHOD 12/20/2024 4:33 PM [facility] Anion Gap 7 3 - 11 LAB CHEMISTRY METHOD 12/20/2024 4:33 PM [facility] Glucose 107(H) 70 - 100 mg/dL LAB CHEMISTRY METHOD 12/20/2024 4:33 PM [facility] BUN 11 5 - 25 mg/dL LAB CHEMISTRY METHOD 12/20/2024 4:33 PM [facility] Creatinine 0.81 0.70 - 1.30 mg/dL LAB CHEMISTRY METHOD 12/20/2024 4:33 PM [facility] eGFR 93 >=60 mL/min/1. 73m2 LAB CHEMISTRY METHOD 12/20/2024 4:33 PM [facility] Comment:Calculation based on the Chronic Kidney Disease Epidemiology Collaboration (CKD-EPI) equation refit without adjustment for race. BUN/Creatinine Ratio 13.6 LAB CHEMISTRY METHOD 12/20/2024 4:33 PM [facility] Calcium 9.1 8.5 - 10.5 mg/dL LAB CHEMISTRY METHOD 12/20/2024 4:33 PM [facility] Blood Venous blood specimen / Unknown Venipuncture / Unknown 12/20/2024 1:31 PM EDT 12/20/2024 1:35 PM EDT us Collette Aavlos MD LAB BLOOD ORDERABLES Final Result Performing Organization Address City/[facility]/ZIP Co de Phone Number [facility] [address] [place] [address], [place] [phone] * (ABNORMAL) Lipid panel with reflex to direct LDL (07/28/2024 3:53 PM EST) Cholesterol 162 0 - 200 mg/dL LAB CHEMISTRY METHOD 07/28/2024 6:57 PM EST [facility] Triglycerides 212(H) 0 - 150 mg/dL LAB CHEMISTRY METHOD 07/28/2024 6:57 PM EST [facility] HDL 50 >=40 mg/dL LAB CHEMISTRY METHOD 07/28/2024 6:57 PM EST [facility] LDL Calculated 70 0 - 100 mg/dL LAB CHEMISTRY METHOD 07/28/2024 6:57 PM EST [facility] VLDL Cholesterol Hermelindo 42.4 mg/dL LAB CHEMISTRY METHOD 07/28/2024 6:57 PM EST [facility] Non HDL Chol. (LDL+VLDL) 112 <145 mg/dL LAB CHEMISTRY METHOD 07/28/2024 6:57 PM EST [facility] Chol/HDL Ratio 3.2 0.0 - 4.4 LAB CHEMISTRY METHOD 07/28/2024 6:57 PM [facility] Blood Venous blood specimen / Unknown Venipuncture / Unknown 07/28/2024 3:53 PM EST 07/28/2024 3:53 PM EST Ca Durán NP LAB BLOOD ORDERABLES Final Resul t Performing Organization Address City/[facility]/ZIP Co de Phone Number [facility] [address] [place] [address], [place] [phone] * CT LUNG SCREENING LOW DOSE (03/17/2023 3:36 PM EDT) Anatomical Region Laterality Modality Computed Tomogra phy 03/17/2023 1:40 PM EDT Narrative 03/17/2023 3:36 PM EDT [facility] Diagnostic Imaging Department [address] [place] [address] Patient: YURIY JOY Lala /Age/Sex: 1950 - 72 - M Unit#: [id number] Location/Status: [facility] CLI Mnemonic/Ordering Site: [facility] Ordering Physician: MARILUZ NGO MD CT [...] Note Jame Zamora MD - 08/26/2023 [facility] Diagnostic Imaging Department [address] [place] [address] Patient: YURIY JOY Lala /Age/Sex: 1950 - 72 - M Unit#: [id number] Location/Status: [facility] Mnemonic/Ordering Site: [facility] Ordering Physician: MARILUZ NGO MD CT [...] no interpretation Anatomical Region Laterality Modality Other [facility] Provider HEALTH MAINTENANCE Final Result * Colonoscopy (05/01/2020) Colonoscopy abstracted, no interpretation Anatomical Region Laterality Modality Other [facility] Provider HEALTH MAINTENANCE Final Result * Hepatitis C Screening (01/25/2013) Hepatitis C Screening abstracted [facility] Pancho [facility] HEALTH MAINTENANCE Final Result from Last 3 Months or Most Recently Relevant to Health Maintenance Insurance [employer] - [place] MEDICARE ADVANTAGE Advance Directives Documents on File Type Date Recorded 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
--- OUTSIDE RECORDS SUMMARY | 2025-05-17 15:53 | XMS_ITS | Encounter Summary ---
Author Organization [facility] Address [address] [place] [address] Care Team Providers Care Laborer Pipelines Name Role Phone FerozLe gomes Primary Care Provider [phone] Encounter Details Date Type Department Care Team (Late st Contact Info) Description 10/10/2024 Lab Requisition [facility] - Main Lab [address] [place] [phone] Bernadine Florez MD [address] [place] [address] Other malaise; Unspecified atrial fibrillation (CMS/HCC V24, [...] Office Visit Internal [facility] - [place] [address] [facility] [place] [phone] Aide Linares, LEWIS [address] [place] [address] documented as of this encounter Procedures Procedure [...] LAB COAGULATION METHOD 10/11/2024 11:33 AM EDT [facility] INR 1.4 LAB COAGULATION METHOD 10/11/2024 11:33 AM EDT [facility] Blood Venous blood specimen / Unknown Venipuncture / Unknown 10/11/2024 6:48 AM EDT 10/11/2024 10:24 AM EDT us Bernadine Florez MD LAB BLOOD ORDERABLES Final Resul t [facility] [address] [place] [address], * (ABNORMAL) Basic metabolic panel (10/11/2024 6:48 AM EDT) Sodium 139 133 - 145 mmol/L LAB CHEMISTRY METHOD 10/11/2024 12:02 PM [facility] Potassium 4.0 3.5 - 5.5 mmol/L LAB CHEMISTRY METHOD 10/11/2024 12:02 PM [facility] Chloride 105 96 - 110 mmol/L LAB CHEMISTRY METHOD 10/11/2024 12:02 PM [facility] CO2 24 21 - 32 mmol/L LAB CHEMISTRY METHOD 10/11/2024 12:02 PM [facility] Anion Gap 10 3 - 11 LAB CHEMISTRY METHOD 10/11/2024 12:02 PM [facility] Glucose 100 70 - 100 mg/dL LAB CHEMISTRY METHOD 10/11/2024 12:02 PM [facility] BUN 18 5 - 25 mg/dL LAB CHEMISTRY METHOD 10/11/2024 12:02 PM [facility] Creatinine 0.68(L) 0.70 - 1.30 mg/dL LAB CHEMISTRY METHOD 10/11/2024 12:02 PM [facility] eGFR 98 >=60 mL/min/1. 73m2 LAB CHEMISTRY METHOD 10/11/2024 12:02 PM [facility] Comment:Calculation based on the Chronic Kidney Disease Epidemiology Collaboration (CKD-EPI) equation refit without adjustment for race. BUN/Creatinine Ratio 26.5 LAB CHEMISTRY METHOD 10/11/2024 12:02 PM [facility] Calcium 9.5 8.5 - 10.5 mg/dL LAB CHEMISTRY METHOD 10/11/2024 12:02 PM [facility] Blood Venous blood specimen / Unknown Venipuncture / Unknown 10/11/2024 6:48 AM EDT 10/11/2024 10:23 AM EDT us Bernadine Florez MD LAB BLOOD ORDERABLES Final Resul t [facility] [address] [place] [address], * (ABNORMAL) Complete blood count (10/11/2024 6:48 AM EDT) WBC 5.7 4.8 - 10.8 K/mcL LAB HEMETOLOGY METHOD 10/11/2024 11:52 AM EDT [facility] RBC 4.00(L) 4.50 - 5.50 M/mcL LAB HEMETOLOGY METHOD 10/11/2024 11:52 AM EDT [facility] Hemoglobin 11.1(L) 13.5 - 17.5 g/dL LAB HEMETOLOGY METHOD 10/11/2024 11:52 AM EDT [facility] Hematocrit 34.7(L) 42.0 - 54.0 % LAB HEMETOLOGY METHOD 10/11/2024 11:52 AM EDT [facility] MCV 87.0 79.0 - 98.0 FL LAB HEMETOLOGY METHOD 10/11/2024 11:[facility] MCH 27.8 27.0 - 32.0 pcg LAB HEMETOLOGY METHOD 10/11/2024 11:52 AM EDT [facility] MCHC 32.0 32.0 - 37.0 g/dL LAB HEMETOLOGY METHOD 10/11/2024 11:52 AM EDT [facility] RDW 13.7 11.0 - 15.0 % LAB HEMETOLOGY METHOD 10/11/2024 11:52 [facility] Platelets 233 130 - 400 K/mcL LAB HEMETOLOGY METHOD 10/11/2024 11:52 AM EDT [facility] MPV 10.0 7.0 - 11.0 FL LAB HEMETOLOGY METHOD 10/11/2024 11:52 AM EDT [facility] NRBC 0.0 <1.0 % LAB HEMETOLOGY METHOD 10/11/2024 11:52 AM EDT [facility] NRBC Absolute 0.00 <0.10 K/mcL LAB HEMETOLOGY METHOD 10/11/2024 11:52 AM EDT [facility] Blood Venous blood specimen / Unknown Venipuncture / Unknown 10/11/2024 6:48 AM EDT 10/11/2024 10:23 AM EDT us Bernadine Florez MD LAB BLOOD ORDERABLES Final Resul t [facility] [address] [place] [address], documented in this encounter Visit Diagnoses Diagnosis Other malaise Unspecified atrial fibrillation (CMS/HCC V24, CMS/HCC V28) documented in this encounter Additional Health Concerns Infection Onset Date Last Indicated Resolved Time Tuberculosis Rule-Out 01/12/2025 01/12/20252024 7:05 PM EDT documented as of this encounter Care Teams Laborer Pipelines Relationship Specialty Start Date End Date Le Recinos DO [address] [place] [address] PCP - General 04/28/24 documented as of this encounter
--- OUTSIDE RECORDS SUMMARY | 2025-05-17 15:53 | XMS_ITS | Encounter Summary ---
Author Organization [facility] Address [address] [place] [address] Care Team Providers Care Recruiting Internship Name Role Phone FerozLe gomes Primary Care Provider [phone] Encounter Details Date Type Department Care Team (Late st Contact Info) Description 09/26/[address] [facility] - Main Lab [address] [place] [phone] Bernadine Florez MD [address] [place] [address] Other malaise; Unspecified atrial fibrillation (CMS/HCC V24, [...] Office Visit Internal Medicine - [place] [address] [facility] [place] [phone] Aide Linares, LEWIS [address] [place] [address] documented as of this encounter Procedures Procedure [...] LAB COAGULATION METHOD 09/27/2024 9:54 AM EDT [facility] INR 3.0 LAB COAGULATION METHOD 09/27/2024 9:54 AM EDT [facility] Blood Venous blood specimen / Unknown Venipuncture / Unknown 09/27/2024 7:16 AM EDT 09/27/2024 9:30 AM EDT us Bernadine Florez MD LAB BLOOD ORDERABLES Final Resul t [facility] [address] [place] [address], * Basic metabolic panel (09/27/2024 7:16 AM EDT) Sodium 136 133 - 145 mmol/L LAB CHEMISTRY METHOD 09/27/2024 10:08 AM [facility] Potassium 4.4 3.5 - 5.5 mmol/L LAB CHEMISTRY METHOD 09/27/2024 10:08 AM [facility] Chloride 103 96 - 110 mmol/L LAB CHEMISTRY METHOD 09/27/2024 10:08 AM [facility] CO2 25 21 - 32 mmol/L LAB CHEMISTRY METHOD 09/27/2024 10:08 AM [facility] Anion Gap 8 3 - 11 LAB CHEMISTRY METHOD 09/27/2024 10:08 AM [facility] Glucose 99 70 - 100 mg/dL LAB CHEMISTRY METHOD 09/27/2024 10:08 AM [facility] BUN 25 5 - 25 mg/dL LAB CHEMISTRY METHOD 09/27/2024 10:08 AM [facility] Creatinine 0.97 0.70 - 1.30 mg/dL LAB CHEMISTRY METHOD 09/27/2024 10:08 AM [facility] eGFR 82 >=60 mL/min/1. 73m2 LAB CHEMISTRY METHOD 09/27/2024 10:08 AM [facility] Comment:Calculation based on the Chronic Kidney Disease Epidemiology Collaboration (CKD-EPI) equation refit without adjustment for race. BUN/Creatinine Ratio 25.8 LAB CHEMISTRY METHOD 09/27/2024 10:08 AM [facility] Calcium 9.5 8.5 - 10.5 mg/dL LAB CHEMISTRY METHOD 09/27/2024 10:08 AM [facility] Blood Venous blood specimen / Unknown Venipuncture / Unknown 09/27/2024 7:16 AM EDT 09/27/2024 9:16 AM EDT us Bernadine Florez MD LAB BLOOD ORDERABLES Final Resul t [facility] [address] [place] [address], * (ABNORMAL) Complete blood count (09/27/2024 7:16 AM EDT) WBC 6.6 4.8 - 10.8 K/mcL LAB HEMETOLOGY METHOD 09/27/2024 9:39 AM EDT [facility] RBC 4.20(L) 4.50 - 5.50 M/mcL LAB HEMETOLOGY METHOD [facility]24 [facility] Hemoglobin 11.9(L) 13.5 - 17.5 g/dL LAB HEMETOLOGY METHOD 09/27/2024 9:39 AM [facility] Hematocrit 38.0(L) 42.0 - 54.0 % LAB HEMETOLOGY METHOD 09/27/2024 9:39 AM [facility] MCV 90.3 79.0 - 98.0 FL LAB HEMETOLOGY METHOD 09/27/2024 9[facility] MCH 28.3 27.0 - 32.0 pcg LAB HEMETOLOGY METHOD 09/27/2024 9:39 AM T [facility] MCHC 31.3(L) 32.0 - 37.0 g/dL LAB HEMETOLOGY METHOD 09/27/2024 9:39 AM [facility] RDW 14.3 11.0 - 15.0 % LAB HEMETOLOGY METHOD 09/27/2024 9:39 AM [facility] Platelets 292 130 - 400 K/mcL LAB HEMETOLOGY METHOD 09/27/2024 9:39 AM [facility] MPV 10.1 7.0 - 11.0 FL LAB HEMETOLOGY METHOD 09/27/2024 9:39 AM EDT [facility] NRBC 0.0 <1.0 % LAB HEMETOLOGY METHOD 09/27/2024 9:39 AM EDT [facility] NRBC Absolute 0.00 <0.10 K/mcL LAB HEMETOLOGY METHOD 09/27/2024 9:39 AM EDT [facility] Blood Venous blood specimen / Unknown Venipuncture / Unknown 09/27/2024 7:16 AM EDT 09/27/2024 9:26 AM EDT us Bernadine Florez MD LAB BLOOD ORDERABLES Final Resul t [facility] [address] [place] [address], documented in this encounter Visit Diagnoses Diagnosis Other malaise Unspecified atrial fibrillation (CMS/HCC V24, CMS/HCC V28) documented in this encounter Additional Health Concerns Infection Onset Date Last Indicated Resolved Time Tuberculosis Rule-Out 01/12/2025 01/12/20252024 7:05 PM EDT documented as of this encounter Care Teams Recruiting Internship Relationship Specialty Start Date End Date Le Recinos DO [address] [place] [address] PCP - General 04/28/24 documented as of this encounter
--- OUTSIDE RECORDS SUMMARY | 2025-05-17 15:53 | XMS_ITS | Encounter Summary ---
Author Organization [facility] Address [address] [place] [address] Care Team Providers Care Land Surveying Party Chief Name Role Phone FerozLe gomes Primary Care Provider [phone] Encounter Details Date Type Department Care Team (Late st Contact Info) Description 10/10/2024 Lab Requisition [facility] - Main Lab [address] [place] [phone] Bernadine Florez MD [address] [place] [address] Other malaise; Unspecified atrial fibrillation (CMS/HCC V24, [...] PM EST Office Visit Internal Medicine - [facility] [address] [place] [address] Aide Linares, LEWIS [address] [place] [address] documented as of this encounter Visit Diagnoses Diagnosis Other malaise Unspecified atrial fibrillation (CMS/HCC V24, CMS/HCC V28) documented in this encounter Additional Health Concerns Infection Onset Date Last Indicated Resolved Time Tuberculosis Rule-Out 01/12/2025 01/12/20252024 7:05 PM EDT documented as of this encounter Care Teams Land Surveying Party Chief Relationship Specialty Start Date End Date Le Recinos DO [address] [place] [address] PCP - General 04/28/24 documented as of this encounter
--- OUTSIDE RECORDS SUMMARY | 2025-05-17 15:53 | XMS_ITS | Encounter Summary ---
Author Organization [facility] Address [address] [place] [address] Care Team Providers Care Supervisor Aluminum Boat Assembly Name Role Phone Le Recinos DO Primary Care Provider [phone] Reason for Visit * Reason Onset Date Comments Anticoagulation 05/12/2025 Encounter Details Date Type Department Care Team ([facility] st Contact Info) Description 05/12/2025 Telephone Internal Medicine - [facility] [address] [place] [address] Le Recinos DO [address] [place] [address] Social History Tobacco Use Types Packs/Day Years [...] Anticoagulation Patient Call Primary Care Provider: Dr eL Recinos Is the PCP in the office [...] He is requesting a callback RICK @ [phone] documented in this encounter Plan of Treatment Upcoming Encounters Date Type Department Care Team (Late st Contact Info) Description 06/03/2025 2:45 PM EST Office Visit Internal Medicine - [facility] [address] [place], [place] [phone] Aide Linares NP [address] [place] [address] documented as of this encounter Visit Diagnoses Not on filedocumented in this encounter Care Teams Supervisor Aluminum Boat Assembly Relationship Specialty Start Date End Date Le Recinos DO [address] [place] [address] PCP - General 04/28/24 documented as of this encounter
--- OUTSIDE RECORDS SUMMARY | 2025-05-17 15:53 | XMS_ITS | Encounter Summary ---
Author Organization [facility] Address [address] [place] [address] Care Team Providers Care Television Repair Teacher Name Role Phone JorjeLe Primary Care Provider [phone] Encounter Details Date Type Department Care Team (Late st Contact Info) Description 09/23/2024 Lab Requisition [facility] - Main Lab [address] [place] [address] Bernadine Florez MD [address] [place], [place] [id number] Unspecified atrial fibrillation (CMS/HCC V24, CMS/HCC V28) [...] PM EST [facility] [address] [place] [address] Aide Linares NP [address] [place] [address] documented as of this encounter Procedures Procedure [...] t [facility] [address] [place] [address], documented in this encounter Visit Diagnoses Diagnosis Unspecified atrial fibrillation (CMS/HCC V24, CMS/HCC V28) documented in this encounter Additional Health Concerns Infection Onset Date Last Indicated Resolved Time Tuberculosis Rule-Out 01/12/2025 01/12/20252024 7:05 PM EDT documented as of this encounter Care Teams Television Repair Teacher Relationship Specialty Start Date End Date Le Recinos DO [address] [place] [address] PCP - General 04/28/24 documented as of this encounter
--- OUTSIDE RECORDS SUMMARY | 2025-05-17 15:53 | XMS_ITS | Encounter Summary ---
Author Organization [facility] Address [address] [place] [address] Care Team Providers Care Kettle Loader Name Role Phone JorjeLe Primary Care Provider [phone] Encounter Details Date Type Department Care Team (Late st Contact Info) Description 09/22/[address] [facility] - Main Lab [address] [place] [address] Bernadine Florez MD [address] [place], [place] [id number] Unspecified atrial fibrillation (CMS/HCC V24, CMS/HCC V28) [...] - [facility] [address] [place] [address] Aide Linares NP [address] [place] [address] documented as of this encounter Procedures Procedure Name Priority Date/Time Associated Diagnosis Comments PROTHROMBIN TIME WITH INR Routine 09/23/2024 6:12 AM EST Unspecified atrial fibrillation (CMS/HCC) documented in this encounter Results * (ABNORMAL) Prothrombin time with INR (09/23/2024 6:12 AM EST) Protime 17.7(H) 10.6 - 13.9 sec LAB COAGULATION METHOD 09/23/2024 9:33 AM EST [facility] INR 1.4 LAB COAGULATION METHOD 09/23/2024 9:33 AM EST [facility] Blood Venous blood specimen / Unknown Venipuncture / Unknown 09/23/2024 6:12 AM EST 09/23/2024 9:14 AM EST us Bernadine Florez MD LAB BLOOD ORDERABLES Final Resul t [facility] [address] [place] [address], documented in this encounter Visit Diagnoses Diagnosis Unspecified atrial fibrillation (CMS/HCC V24, CMS/HCC V28) documented in this encounter Additional Health Concerns Infection Onset Date Last Indicated Resolved Time Tuberculosis Rule-Out 01/12/2025 01/12/20252024 7:05 PM EDT documented as of this encounter Care Teams Kettle Loader Relationship Specialty Start Date End Date Le Recinos DO [address] [place] [address] PCP - General 04/28/24 documented as of this encounter
--- OUTSIDE RECORDS SUMMARY | 2025-05-17 15:53 | XMS_ITS | Encounter Summary ---
Author Organization [facility] Address [address] [place] [address] Care Team Providers Care Carding Utility Tender Name Role Phone FerozLe gomes Primary Care Provider [phone] Encounter Details Date Type Department Care Team (Late st Contact Info) Description 10/01/2024 Lab Requisition [facility] - Main Lab [address] [place] [phone] Bernadine Florez MD [address] [place] [address] Other malaise; Unspecified atrial fibrillation (CMS/HCC V24, [...] EST Office Visit Internal Medicine - [facility] [address] [place] [address] Aide Linares, LEWIS [address] [place] [address] documented as of this encounter Visit Diagnoses Diagnosis Other malaise Unspecified atrial fibrillation (CMS/HCC V24, CMS/HCC V28) documented in this encounter Additional Health Concerns Infection Onset Date Last Indicated Resolved Time Tuberculosis Rule-Out 01/12/2025 01/12/20252024 7:05 PM EDT documented as of this encounter Care Teams Carding Utility Tender Relationship Specialty Start Date End Date Le Recinos DO [address] [place] [address] PCP - General 04/28/24 documented as of this encounter
--- OUTSIDE RECORDS SUMMARY | 2025-05-17 15:53 | XMS_ITS | Encounter Summary ---
Author Organization [facility] Address [address] [place] [address] Care Team Providers Care Order Entry Name Role Phone Jorje Le Primary Care Provider [phone] Encounter Details Date Type Department Care Team (Latest Contact Info) Description 05/13/2025 Anticoagulation - Warfarin Visit [facility] Clinic - [address] [phone] Christiana Lozoya LPN Deep vein thrombosis (DVT) of distal vein of left lower extremity, unspecified chronicity (CMS/HCC V24, CMS/HCC V28) (Primary Dx); Factor V Leiden mutation ([facility]/HCC V24) Social History Tobacco Use Types Packs/Day [...] Indications DVT of leg (deep venous thrombosis) ([facility]/HCC V24 CMS/HCC V28) [I82.409] Factor V Leiden mutation ([facility]/HCC V24) [D68.51] Anticoagulation Episode Summary INR check location: Anticoagulation Clinic Preferred lab: -- Send INR reminders to: [facility] ANTICOAGULATION POOL Comments: -- Anticoagulation Care Providers Provider Role Specialty Phone number Le Recinos DO [facility] Internal Medicine [phone] Patient presents for follow-up of ongoing Warfarin [...] EST Office Visit Internal Medicine - [facility] [address] [place], [place] [phone] Aide Linares, LEWIS [address] [place] [address] documented as of this encounter Visit Diagnoses Diagnosis Deep vein thrombosis (DVT) of distal vein of left lower extremity, unspecified chronicity (CMS/HCC V24, CMS/HCC V28)- Primary Factor V Leiden mutation (CMS/HCC V24) Primary hypercoagulable state documented in this encounter Care Teams Order Entry Relationship Specialty Start Date End Date Le Recinos DO [address] [place] [address] PCP - General 04/28/24 documented as of this encounter
== END 2025-05-17 13:44 | disposition home or self-care (01) ==
LOC: HO.PMCPRC 12:37
PROVIDERS: PCP Internal Medicine; Visit Provider Anesthesiology
DX: M46.1 Sacroiliitis, not elsewhere classified (principal); S32.010G Wedge compression fracture of first lumbar vertebra, subsequent encounter for fracture with delayed healing; M47.816 Spondylosis without myelopathy or radiculopathy, lumbar region; G89.4 Chronic pain syndrome; M81.0 Age-related osteoporosis without current pathological fracture; M53.3 Sacrococcygeal disorders, not elsewhere classified
CPT/HCPCS: 27096

== ENCOUNTER 2025-05-19 12:59 | Outpatient (AMB) | payer BC, SELFPAY ==
--- OUTSIDE RECORDS SUMMARY | 2025-05-19 12:05 | XMS_ITS | Encounter Summary ---
Author Organization [facility] Address [address] [place] [address] Care Team Providers Care Medical Policy Specialist Name Role Phone JorjeLe Primary Care Provider [phone] Encounter Details Date Type Department Care Team (Late st Contact Info) Description 05/19/2025 12:05 PM EDT Lab Draw Station - [address] [address] Deep vein thrombosis (DVT) of distal vein of left lower extremity, unspecified chronicity (CMS/HCC V24, CMS/HCC V28); Factor V Leiden mutation ([facility]/HCC V24) Social History Tobacco Use Types Packs/Day [...] Office Visit [facility] [address] [facility] [place] [phone] Aide Linares, LEWIS [address] [place] [address] documented as of this encounter Procedures Procedure Name Priority Date/Time Associated Diagnosis Comments PROTHROMBIN TIME WITH INR Routine 05/19/2025 12:06 PM EDT Deep vein thrombosis (DVT) of distal vein of left lower extremity, unspecified chronicity (CMS/HCC V24, CMS/HCC V28) Factor V Leiden mutation (CMS/HCC V24) documented in this encounter Results * (ABNORMAL) Prothrombin time with INR (05/19/2025 12:06 PM EDT) Protime 16.8(H) 10.6 - 13.9 sec LAB COAGULATION METHOD 05/19/2025 2:11 PM EDT [facility] INR 1.4 LAB COAGULATION METHOD 05/19/2025 2:11 PM EDT [facility] Blood Venous blood specimen / Unknown Venipuncture / Unknown 05/19/2025 12:06 PM EDT 05/19/2025 12:06 PM EDT Le Recinos DO LAB BLOOD ORDERABLES Final Res ult [facility] [address] [place] [address], documented in this encounter Visit Diagnoses Diagnosis Deep vein thrombosis (DVT) of distal vein of left lower extremity, unspecified chronicity (CMS/HCC V24, CMS/HCC V28) Factor V Leiden mutation ([facility]/HCC V24) Primary hypercoagulable state documented in this encounter Care Teams Medical Policy Specialist Relationship Specialty Start Date End Date Le Recinos, DO [address] [facility] [place] [address] PCP - General 04/28/24 documented as of this encounter
[2025-05-19 13:03] VITALS: BP 118/73; PULSE 96; RESP 16; O2SAT 99; BMI 23.4
--- NOTE | 2025-05-19 13:03 | A.OFFVIS_ITS ---
Vital Signs 05/19/25 13:03 Height 5 ft 11 in Weight 168 lb BMI 23.4 BP 118/73 Blood Pressure Location Lt brachial Position Sitting Respiration 16 Pulse 96 Pulse Source Pulse Oximeter Pulse Oximetry (%) 99 Oxygen Delivery Method Room Air Intake Visit Reasons: S/P Right Diagnostic SIJ Injection Global Regulatory Affairs Manager Required: No Accompanied by: Life Partner Allergies No Known Allergies Allergy (Verified 05/19/25 13:08) HPI Comments Details: Sly is back in my office after diagnostic sacroiliac joint injection on the right. Unfortunately there were no pain improvement after the procedure. Before that he received diagnostic bilateral L2, L3, L4 medial branch blocks which were performed for him to diagnose the pain. Unfortunately patient reports no pain improvement at all. Therefore the only way I could possibly treat this pain for the patient is neuromodulation. I offered him to consider spinal cord stimulator Nevro versus intrathecal pain pump. The brochures were given to the patient. We had prolonged and detailed conversation about risks benefits of the procedure as well as psychological evaluation he needs to attend to become a candidate for the procedure. He has a history of depression but it is very remote. He does not take any medications for the depression at this time. I told him to give us a call if he decides to go for neuromodulation, I explained to him that my preference will be to start with Nevro SCS 1st. A [employer] brochure was also given to the patient and co-pay of 100 dollars was explained to the patient. Prior: very pleasant 74 years old gentleman who presents in my office with complains on 2 pain generators: He complains on pain in the lower lumbar spine as well as pain in the left shoulder. She reports that pain in the back is bothering him the most. He reports that shoulder pain he received steroid injection in the office and this alleviated his pain for 1 month. His most severe pain is in the lower back and this problem he wants to address today. He reports this pain is most severe with standing and walking. Denies pain increase with coughing and sneezing. He denies pelvic organ dysfunction. He is unable to do activities of daily living, he is able to sleep normally, he can take care of himself but he can not function normally. He had x-ray radiology report performed for the lumbar spine which was done on 10/01/2024. It demonstrated diffuse osteopenia chronic compression deformity at L2 severe compression deformity superior endplate at L1 mild superior endplate compression deformity at L3 which is likely chronic. There is also mild compression deformity of the superior endplate L5 diffuse degenerative changes are noted which are worse in the lower lumbar spine. He had chiropractic manipulations to help his pain he received minimal results. Also had acupuncture to treat his pain also results were minimal. He continues to home exercise program, he wants to try physical therapy Review of Systems Const All systems reviewed & are unremarkable except as noted in HPI and below ENT Reports Normal hearing present Neuro Reports Normal hearing present, Denies Abnormal speech present, Denies confusion and Denies Sensory deficit (Neuro) Psych Denies confusion Physical Exam Vital Signs: Last Vital Signs Pulse 96 05/19/25 13:03 Resp 16 05/19/25 13:03 BP 118/73 05/19/25 13:03 Pulse Ox 99 05/19/25 13:03 Oxygen Delivery Method Room Air 05/19/25 13:03 BMI result Body Mass Index 23.4 Const General: no acute distress; No confusion Nutritional Appearance: malnourished and underweight Orientation/consciousness: patient oriented x3 and No confusion Limitations: physical limitations, ambulation with cane and ambulation with walker Eyes General: appearance normal, both eyes and all related structures Pupils: Equal, round and reactive pupils present EOM: EOMs intact bilaterally Neck Neck: Yes full ROM Chest Chest palpation & inspection: normal inspection of the chest Resp Effort & Inspection: normal respiratory effort, able to speak in complete sentences, normal respiratory pattern, no audible wheezes and no cough Cardio Jugular venous distension: no JVD GI Inspection: Yes normal to inspection Back/Spine/Pelvis Other: Flexing forward and flexing backwards aggravate his pain. Flexing backwards aggravate his pain more than flexing forward. Denies pelvic organ dysfunction. Valsalva maneuver is negative for pain increase. Oscar test is positive on the right, pelvic compression test and pelvic distraction test is positive on the right, yeoman's test is positive on the right, Stinchfield test is positive on the right, thigh thrust test is positive on the right. Gaenslen test is positive on the right. Neuro General: patient oriented x3, gait normal and No confusion Cranial nerves: Yes CN's II-XII intact bilaterally, Yes Equal, round and reactive pupils present, Yes Normal hearing present and Yes Ability to bilaterally elevate shoulders present Speech: No Abnormal speech present Gait exam (Neuro): Normal gait present Motor exam (neuro): 5/5 motor strength present throughout Sensory Exam: No Sensory deficit (Neuro) Extrem General: No pedal edema Psych Speech and movement: Normal speech and movement present Affect: normal affect Attitude: cooperative Thought process: Normal thought process present Thought content: Normal thought content present Insight: Good insight present (Psych) Judgement: Good judgement present (Psych) Results Reviewed Results Reviewed: MR LUMBAR SPINE WITHOUT CONTRAST CLINICAL INFORMATION: Wedge-shaped compression, L1 vertebra. COMPARISON: None available. TECHNIQUE: MRI of the lumbar spine was obtained using routine sequences without contrast. FINDINGS: Last rib-bearing vertebra labeled T12. Superior endplate compression deformity without bone marrow STIR signal abnormality, representing 60% with a 3 mm retropulsion upon central canal. Superior endplate compression deformity without bone marrow STIR signal abnormality, representing 40-50% volume loss without retropulsion at L2. Superior endplate compression deformity without bone marrow STIR signal abnormality, representing 30-40% volume loss without retropulsion at L3 vertebra. Superior endplate compression deformity without bone marrow STIR signal abnormality, representing 20% volume loss at L4 vertebra without retropulsion. Superior endplate compression deformity without bone marrow STIR signal abnormality, representing 50% volume loss at L5. No retropulsion. Superior endplate compression deformity, without bone marrow STIR signal abnormality, representing 20% volume loss at T12. No retropulsion Bone marrow inhomogeneity. No bone marrow STIR signal abnormality. Conus medullaris ends at pedicle of L1 with normal signal. T11-12: No disc herniation. No central spinal canal or neuroforamina stenosis. T12-L1: 3 mm retropulsion. Decreased AP diameter of the thecal sac. No compression upon conus medullaris. No neuroforamina stenosis. L1-2: Central marginal osteophyte formation. Reduced AP diameter of the thecal sac. No gross neuroforamina stenosis. L2-3: Broad-based disc bulging. Facet joint and ligamentum flavum hypertrophy. Reduced AP diameter of the thecal sac and bilateral neuroforamina narrowing. L3-4: Broad-based disc bulging. Facet joint and ligamentum flavum hypertrophy. Reduced AP diameter of the thecal sac and neuroforamina likely encroaching the neural limits. L4-5: Broad-based disc bulging. Facet joint and ligamentum flavum hypertrophy. Reduced AP diameter of the thecal sac and bilateral neuroforamina narrowing. L5-S1: Broad-based disc bulging. Facet joint hypertrophy. No central spinal canal stenosis. Bilateral neuroforamina narrowing without compressibility exiting nerve roots. No prevertebral compartment hematoma, mass or fluid collection.. IMPRESSION: Multilevel old likely osteoporotic compression fracture deformities throughout the vertebral bodies of the lumbar spine, the most pronounced at L1 resulting in 3 mm retropulsion. Central spinal canal stenosis at L3-4 and to a lesser extent L4-5, L2-3 on a multifactorial basis. Assessment & Plan Assessment & Plan (1) Compression fracture of L1 vertebra with delayed healing: Code(s): S32.010G - Wedge compression fracture of first lumbar vertebra, subsequent encounter for fracture with delayed healing Category: Medical (2) Spondylosis without myelopathy or radiculopathy, lumbar region: Code(s): M47.816 - Spondylosis without myelopathy or radiculopathy, lumbar region Category: Medical (3) Chronic pain syndrome: Code(s): G89.4 - Chronic pain syndrome Category: Medical (4) Osteoporosis: Code(s): M81.0 - Age-related osteoporosis without current pathological fracture Category: Medical (5) Sacroiliitis: Code(s): M46.1 - Sacroiliitis, not elsewhere classified Category: Medical (6) Sacroiliac joint dysfunction of right side: Code(s): M53.3 - Sacrococcygeal disorders, not elsewhere classified Category: Medical Plan MRI dictation is as above, none of his compression fractures are acute all of the MRI old. Therefore his pain is not coming from the VCF. Diagnostic medial branch block performed 2 days ago resulted in no pain improvement at all. Therefore the pain is not coming from the facet joints. There is no nerve root compressions of the MRI as well. Therefore it is not radiculopathy. Diagnostic right sacroiliac joint injection resulted in no improvement of the pain. Neuromodulation was offered to the patient. See discussion as above. If he decides to continue with neuromodulation he will give us a call, he also will go for psychological evaluation with [facility]. Patient Instructions: I here by testify that I spent 32 minutes in conversation with this patient as well as planning his care and organizing this note. Coding Level of Care Code Est Pt Level 4 (36137) Diagnoses Compression fracture of L1 vertebra with delayed healing S32.010G Spondylosis without myelopathy or radiculopathy, lumbar region M47.816 Chronic pain syndrome G89.4 Osteoporosis M81.0 Sacroiliitis M46.1 Sacroiliac joint dysfunction of right side M53.3
--- OUTSIDE RECORDS SUMMARY | 2025-05-19 15:51 | XMS_ITS | Encounter Summary ---
Author Organization [facility] Address [address] [place] [address] Care Team Providers Care Law Office Assistant Name Role Phone FerozLe gomes Primary Care Provider Encounter Details Date Type Department Care Team (Late st Contact Info) Description 09/20/2024 Lab Requisition [facility] - Main Lab [address] [place] [address] Bernadine Florez MD [address] [place], [place] [id number] half-way (current) use of anticoagulants; Unspecified Escherichia coli [...] PM EST Office Visit Internal Medicine - [facility] [address] [facility] [place] [address] Aide Linares, LEWIS [address] [place] [address] documented as of this encounter Procedures Procedure Name Priority Date/Time Associated Diagnosis Comments PROTHROMBIN TIME WITH INR Routine 09/20/2024 7:20 AM EST 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 coli) as the cause of diseases classified elsewhere COMPLETE BLOOD COUNT Routine 09/20/2024 7:20 AM EST half-way (current) use of anticoagulants Unspecified Escherichia coli (E. coli) as the cause of diseases classified elsewhere COMPREHENSIVE METABOLIC PANEL Routine 09/20/2024 7:20 AM EST half-way (current) use of anticoagulants Unspecified Escherichia coli (E. coli) as the cause of diseases classified elsewhere documented in this encounter Results * (ABNORMAL) Prothrombin time with INR (09/20/2024 7:20 AM EST) Protime 17.7(H) 10.6 - 13.9 sec LAB COAGULATION METHOD 09/20/2024 11:50 AM EST [facility] INR 1.4 LAB COAGULATION METHOD 09/20/2024 11:50 AM EST [facility] Blood Venous blood specimen / Unknown Venipuncture / Unknown 09/20/2024 7:20 AM EST 09/20/2024 10:54 AM EST us Bernadine Florez MD LAB BLOOD ORDERABLES Final Resul t [facility] [address] [place] [address], * (ABNORMAL) Comprehensive metabolic panel (09/20/2024 7:20 AM EST) Sodium 136 133 - 145 mmol/L LAB CHEMISTRY METHOD 09/20/2024 12:18 PM [facility] Potassium 3.9 3.5 - 5.5 mmol/L LAB CHEMISTRY METHOD 09/20/2024 12:18 PM [facility] Chloride 101 96 - 110 mmol/L LAB CHEMISTRY METHOD 09/20/2024 12:18 PM [facility] CO2 25 21 - 32 mmol/L LAB CHEMISTRY METHOD 09/20/2024 12:18 PM [facility] Anion Gap 10 3 - 11 LAB CHEMISTRY METHOD 09/20/2024 12:18 PM [facility] Glucose 99 70 - 100 mg/dL LAB CHEMISTRY METHOD 09/20/2024 12:18 PM [facility] BUN 20 5 - 25 mg/dL LAB CHEMISTRY METHOD 09/20/2024 12:18 PM [facility] Creatinine 0.81 0.70 - 1.30 mg/dL LAB CHEMISTRY METHOD 09/20/2024 12:18 PM [facility] eGFR 93 >=60 mL/min/1. 73m2 LAB CHEMISTRY METHOD 09/20/2024 12:18 PM [facility] Comment:Calculation based on the Chronic Kidney Disease Epidemiology Collaboration (CKD-EPI) equation refit without adjustment for race. BUN/Creatinine Ratio 24.7 LAB CHEMISTRY METHOD 09/20/2024 12:18 PM [facility] Calcium 9.1 8.5 - 10.5 mg/dL LAB CHEMISTRY METHOD 09/20/2024 12:18 PM [facility] AST (SGOT) 32 10 - 42 unit/L LAB CHEMISTRY METHOD 09/20/2024 12:18 PM [facility] ALT (SGPT) 28 10 - 60 unit/L LAB CHEMISTRY METHOD 09/20/2024 12:18 PM [facility] Alkaline Phosphatase 426(H) 42 - 121 unit/L LAB CHEMISTRY METHOD 09/20/2024 12:18 PM [facility] Total Protein 7.1 6.0 - 8.0 g/dL LAB CHEMISTRY METHOD 09/20/2024 12:18 PM [facility] Albumin 3.2 3.2 - 5.0 g/dL LAB CHEMISTRY METHOD 09/20/2024 12:18 PM [facility] Total Bilirubin 0.8 0.0 - 1.4 mg/dL LAB CHEMISTRY METHOD 09/20/2024 12:18 PM [facility] Blood Venous blood specimen / Unknown Venipuncture / Unknown 09/20/2024 7:20 AM EST 09/20/2024 10:54 AM EST us Bernadine Florez MD LAB BLOOD ORDERABLES Final Resul t [facility] [address] [place] [address], * (ABNORMAL) Complete blood count (09/20/2024 7:20 AM EST) WBC 8.1 4.8 - 10.8 K/mcL LAB HEMETOLOGY METHOD 09/20/2024 11:50 AM [facility] RBC 4.00(L) 4.50 - 5.50 M/mcL LAB HEMETOLOGY METHOD 09/20/2024 11:50 AM [facility] Hemoglobin 11.4(L) 13.5 - 17.5 g/dL LAB HEMETOLOGY METHOD 09/20/2024 11:50 AM [facility] Hematocrit 36.6(L) 42.0 - 54.0 % LAB HEMETOLOGY METHOD 09/20/2024 11:50 AM EST [facility] MCV 91.3 79.0 - 98.0 FL LAB HEMETOLOGY METHOD 09/20/2024 11:50 AM [facility] MCH 28.4 27.0 - 32.0 pcg LAB HEMETOLOGY METHOD 09/20/2024 11:50 AM [facility] MCHC 31.1(L) 32.0 - 37.0 g/dL LAB HEMETOLOGY METHOD 09/20/2024 11:50 AM [facility] RDW 14.5 11.0 - 15.0 % LAB HEMETOLOGY METHOD 09/20/2024 11:50 AM [facility] Platelets 263 130 - 400 K/mcL LAB HEMETOLOGY METHOD 09/20/2024 11:50 AM [facility] MPV 10.2 7.0 - 11.0 FL LAB HEMETOLOGY METHOD 09/20/2024 11:50 AM [facility] NRBC 0.0 <1.0 % LAB HEMETOLOGY METHOD 09/20/2024 11:50 AM [facility] NRBC Absolute 0.00 <0.10 K/mcL LAB HEMETOLOGY METHOD 09/20/2024 11:50 AM [facility] Blood Venous blood specimen / Unknown Venipuncture / Unknown 09/20/2024 7:20 AM EST 09/20/2024 10:54 AM EST us Bernadine Florez MD LAB BLOOD ORDERABLES Final Resul t [facility] [address] [place] [address], documented in this encounter Visit Diagnoses Diagnosis half-way (current) use of anticoagulants Long-term (current) use of anticoagulants Unspecified Escherichia coli (E. coli) as the cause of diseases classified elsewhere documented in this encounter Additional Health Concerns Infection Onset Date Last Indicated Resolved Time Tuberculosis Rule-Out 01/12/2025 01/12/20252024 7:05 PM EDT documented as of this encounter Care Teams Law Office Assistant Relationship Specialty Start Date End Date Le Recinos DO [address] [place] [address] PCP - General 04/28/24 documented as of this encounter
--- OUTSIDE RECORDS SUMMARY | 2025-05-19 15:51 | XMS_ITS | Clinical Summary ---
Author Organization [facility] Address [address] [place] [address] Care Team Providers Care Tying In Machine Operator Name Role Phone Caterina Sena MD [...] age to complete this topic Care Teams Tying In Machine Operator Relationship Specialty Start Date End Date Caterina Sena MD PCP - General Family Medicine 04/07/23
--- OUTSIDE RECORDS SUMMARY | 2025-05-19 15:51 | XMS_ITS | Encounter Summary ---
Author Organization [facility] Address [address] [place] [address] Care Team Providers Care Geothermal Technician Name Role Phone JorjeLe Primary Care Provider [phone] Encounter Details Date Type Department Care Team (Late st Contact Info) Description 09/19/2024 Lab Requisition [facility] - Main Lab [address] [place] [address] Bernadine Florez MD [address] [place] [address] Chronic embolism and thrombosis of unspecified vein [...] EST [facility] [address] [place] [address] Aide Linares NP [address] [place] [address] documented as of this encounter Procedures Procedure Name Priority Date/Time Associated Diagnosis Comments PROTHROMBIN TIME WITH INR Routine 09/19/2024 7:48 AM EST Chronic embolism and thrombosis of unspecified vein documented in this encounter Results * (ABNORMAL) Prothrombin time with INR (09/19/2024 7:48 AM EST) Protime 27.7(H) 10.6 - 13.9 sec LAB COAGULATION METHOD 09/19/2024 9:51 AM EST [facility] INR 2.2 LAB COAGULATION METHOD 09/19/2024 9:51 AM EST [facility] Blood Venous blood specimen / Unknown Venipuncture / Unknown 09/19/2024 7:48 AM EST 09/19/2024 8:29 AM EST us Bernadine Florez MD LAB BLOOD ORDERABLES Final Resul t [facility] [address] [place] [address], documented in this encounter Visit Diagnoses Diagnosis Chronic embolism and thrombosis of unspecified vein documented in this encounter Additional Health Concerns Infection Onset Date Last Indicated Resolved Time Tuberculosis Rule-Out 01/12/2025 01/12/20252024 7:05 PM EDT documented as of this encounter Care Teams Geothermal Technician Relationship Specialty Start Date End Date Le Recinos DO [address] [place] [address] PCP - General 04/28/24 documented as of this encounter
--- OUTSIDE RECORDS SUMMARY | 2025-05-19 15:52 | XMS_ITS | Encounter Summary ---
Author Organization [facility] Address [address] [place] [address] Care Team Providers Care Nutrition Services Worker Name Role Phone JorjeLe Primary Care Provider [phone] Encounter Details Date Type Department Care Team (Late st Contact Info) Description 10/13/2024 Lab Requisition [facility] - Main Lab [address] [place] [address] Bernadine Florez MD [address] [place], [place] [id number] Unspecified atrial fibrillation (CMS/HCC V24, CMS/HCC V28) [...] EST [facility] [address] [place] [address] Aide Linares NP [address] [place] [address] documented as of this encounter Procedures Procedure [...] t [facility] [address] [place] [address], documented in this encounter Visit Diagnoses Diagnosis Unspecified atrial fibrillation (CMS/HCC V24, CMS/HCC V28) documented in this encounter Additional Health Concerns Infection Onset Date Last Indicated Resolved Time Tuberculosis Rule-Out 01/12/2025 01/12/20252024 7:05 PM EDT documented as of this encounter Care Teams Nutrition Services Worker Relationship Specialty Start Date End Date Le Recinos DO [address] [place] [address] PCP - General 04/28/24 documented as of this encounter
--- OUTSIDE RECORDS SUMMARY | 2025-05-19 15:52 | XMS_ITS | Clinical Summary ---
Author Organization [address] [facility] Building Address [address] [place] [phone] Phone Care Team Providers Care Event Av Operator Name Role Phone Le Recinos DO Primary Care Provider [phone] Allergies No known active allergies Medications docusate [...] Z-Savage. Squamous cell carcinoma lung , left ([facility] V24, [facility]/HCC V28) 06/30/2023 Overview (05/31/2024): 04/30/2023 status [...] I explained how the size, shape, and military exchange wireless manager time affect her level of suspicion for [...] that I will have him see his roto rooter operator for a risk assessment as well as a industrial aerial installer to give recommendations around anticoagulation around surgery. He certainly will have to stop his Coumadin 5 days prior to operation but the question of a bridge or what to bridge with. Aortic root dilatation ([facility] V24) 01/24/2023 Coronary artery disease invo lving la posta coronary artery of la posta heart without angina pectoris 06/20/2022 Mixed hyperlipidemia 06/20/2022 Primary hypertension 04/23/2022 Coronary artery disease due to calcified coronar y lesion 03/18/2022 Lab test positive for detection of COVID-19 viru s 07/11/2021 Overview (05/31/2024): 07/03/21, ADMITTED 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, left 04/24/2017 Adrenal incidentaloma ([facility] V24) 02/03/2017 Hematuria 02/03/2017 Overview (05/31/2024): Did not schedule urology appt 06/06 COPD (chronic obstructive pu lmonary disease) ([facility] V24, [facility] V28) 02/16/2016 Depression 08/18/2015 Overview (05/31/2024): [facility] Hyperlipidemia with target LDL less than 130 10/2012 Benign neoplasm of colon 05/13/2011 Overview (05/31/2024): 10 mm polyp 2002. Neg CN 2003. Small polyps x 2 at CN 05/13/2011: Pathology report: Tubular adenomas x 2. 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 Resolved Problems Problem Noted Date Diagnosed Date Resolved Date SBO (small bowel obstruction ) ([facility] V24, [facility] V28) 08/29/2024 09/16/2024 Encounters Date Type Department Care Team Description 05/19/2025 12:05 PM EDT Lab Draw Station [address] Deep vein thrombosis (DVT) of distal vein of left lower extremity, unspecified chronicity ([facility] V24, [facility] V28); Factor V Leiden mutation ([facility] V24) 05/19/2025 Anticoagulation - Warfarin Visit [facility] Clinic - [address] [phone] Le Recinos DO Deep vein thrombosis (DVT) of distal vein of left lower extremity, unspecified chronicity ([facility] V24, [facility] V28) (Primary Dx); Factor V Leiden mutation ([facility] V24) 05/13/2025 Anticoagulation - Warfarin Visit [facility] [address] [phone] Divina Lozoya LPN Deep vein thrombosis (DVT) of distal vein of left lower extremity, unspecified chronicity ([facility] V24, [facility] V28) (Primary Dx); Factor V Leiden mutation ([facility] V24) 05/12/2025 Telephone Internal Medicine - [address] [phone] Le Recinos DO 04/29/2025 Telephone [facility] [address] [phone] Divina Lozoya LPN 04/28/2025 2:30 PM EDT Anticoagulation - Warfarin Visit [facility] [address] [phone] Deep vein thrombosis (DVT) of distal vein of left lower extremity, unspecified chronicity (CMS/HCC V24, CMS/HCC V28) (Primary Dx); Factor V Leiden mutation ([facility]/HCC V24) 04/21/2025 1:45 PM EDT Anticoagulation - Warfarin Visit Coumadin [address] [phone] Deep vein thrombosis (DVT) of distal vein of left lower extremity, unspecified chronicity (CMS/HCC V24, CMS/HCC V28) (Primary Dx); Factor V Leiden mutation ([facility] V24) 04/14/2025 1:30 PM EDT Anticoagulation - Warfarin Visit Coumadin [address] [phone] Deep vein thrombosis (DVT) of distal vein of left lower extremity, unspecified chronicity (CMS/HCC V24, CMS/HCC V28) (Primary Dx); Factor V Leiden mutation ([facility] V24) 04/12/2025 2:45 PM EDT Office Visit Orthopedic Surgery [facility] [address] [phone] Mello Lewis MD Calcific tendinitis of left shoulder (Primary Dx) 04/11/2025 Anticoagulation - Warfarin Visit Coumadin [address] [phone] Kiara Anderson LPN Deep vein thrombosis (DVT) of distal vein of left lower extremity, unspecified chronicity ([facility]/HCC V24, CMS/HCC V28) (Primary Dx); Factor V Leiden mutation ([facility] V24) 04/08/2025 [facility] [address] [place] [phone] Divina Lozoya LPN Deep vein thrombosis (DVT) of distal vein of left lower extremity, unspecified chronicity (CMS/HCC V24, CMS/HCC V28) (Primary Dx); Factor V Leiden mutation (CMS/HCC V24) 04/08/2025 Telephone Coumadin [facility] [address] [place] [phone] Divina Lozoya LPN 04/04/2025 Anticoagulation - Warfarin Visit Coumadin [address] [phone] Kiara Anderson LPN Deep vein thrombosis (DVT) of distal vein of left lower extremity, unspecified chronicity (CMS/HCC V24, CMS/HCC V28) (Primary Dx); Factor V Leiden mutation (CMS/HCC V24) 03/31/2025 1:00 PM EDT Anticoagulation - Warfarin Visit Coumadin [address] [phone] Deep vein thrombosis (DVT) of distal vein of left lower extremity, unspecified chronicity (CMS/HCC V24, CMS/HCC V28) (Primary Dx); Factor V Leiden mutation (CMS/HCC V24) 03/25/2025 Anticoagulation - Warfarin Visit [facility] [address] [phone] Kiara Anderson LPN Deep vein thrombosis (DVT) of distal vein of left lower extremity, unspecified chronicity (CMS/HCC V24, CMS/HCC V28) (Primary Dx); Factor V Leiden mutation (CMS/HCC V24) 03/22/2025 Telephone Coumadin [facility] [address] [place] [phone] Divina Lozoya LPN 03/17/2025 1:30 PM EDT Anticoagulation - Warfarin Visit [facility] [address] [phone] Deep vein thrombosis (DVT) of distal vein of left lower extremity, unspecified chronicity (CMS/HCC V24, CMS/HCC V28) (Primary Dx); Factor V Leiden mutation (CMS/HCC V24) 02/24/2025 1:45 PM EDT Anticoagulation - Warfarin Visit [facility] [address] [place] [phone] Deep vein thrombosis (DVT) of distal vein of left lower extremity, unspecified chronicity (CMS/HCC V24, CMS/HCC V28) (Primary Dx); Factor V Leiden mutation (CMS/HCC V24) from Last 3 Months Immunizations Immunization [...] polyps x2: Tubular adenoma x2. APPENDECTOMY PROCEDURE: OK APPENDECTOMY OTHER SURGICAL HISTORY 04/30/2023 Left PROCEDURE: OK THORACOSCOPY W/SEGMENTECTOMY; COMMENT: MARCIAL wedge w/ segmentectomy [...] COMMENT: Actinic keratosis 03/08 forehead 03/28 left mosque COPD (chronic obstructive pu lmonary disease) ([facility] V24, [facility] V28) DX:COPD (chronic o bstructive pulmonary disease) ([facility]) Lung cancer ([facility] V24, [facility] V28) status post resection Hypertension Hyperlipidemia Factor V Leiden ([facility] V24) History of DVT (deep vein thrombosis) [...] [facility] [address] [place], [place] [phone] Aide Linares, LEWIS [address] [place] [address] Health Maintenance Due Date Last Done Comments [...] this topic Medical Devices Implanted Type Area Health Service Coordinator Device Identifier Shelf Expiration Date Model / Serial / Lot Tray Rad Cath 1lum Poly 4f - [id number] Implanted:Qty: 1 on 09/08/2024 by Savanah Go MD at [facility] Central/Chloe pheral Catheters and Ports Right: Arm BD VASCULAR ACCESS DEVICES FKA BARD ACCESS [id number] 06/19/2026 [id number] / / [id number] Marker Cobra Superlock - Sn/A - [id number] Implanted:Qty: 1 on 01/12/2025 by Collette Avalos MD at [facility] Imaging Implants Left: Lung [employer] SUPERD[employer] [id number] 11/01/2028 [id number] / N/A / [id number] Description:Left lower lobe Procedures Procedure Name Priority Date/Time Associated Diagnosis Comments PROTHROMBIN TIME WITH INR Routine 05/19/2025 12:06 PM EDT Deep vein thrombosis (DVT) of distal vein of left lower extremity, unspecified chronicity (CMS/HCC V24, CMS/HCC V28) Factor V Leiden mutation (CMS/HCC V24) PROTHROMBIN TIME WITH INR Routine 05/13/2025 11:21 [...] V28) Factor V Leiden mutation (CMS/HCC V24) OK ARTHROCENTESIS/ASPI RATION/INJECTION MAJOR JOINT/BURSA W/O U/S GUIDANCE [...] time with INR (05/19/2025 12:06 PM EDT) Only the most recent of6 resultswithin the time period is included. Protime 16.8(H) 10.6 - 13.9 sec LAB COAGULATION METHOD 05/19/2025 2:11 PM EDT [facility] INR 1.4 LAB COAGULATION METHOD 05/19/2025 2:11 PM EDT [facility] Blood Venous blood specimen / Unknown Venipuncture / Unknown 05/19/2025 12:06 PM EDT 05/19/2025 12:06 PM EDT Le Recinos DO LAB BLOOD ORDERABLES Final Res ult [facility] [address] [place] [address], [place] [phone] * POC Protime INR Blood (04/28/2025 2:28 PM EDT) Only the most recent of6 resultswithin the time period is included. Lot Number INR POC 2.4 Prothrombin Time POC Exp Date Blood 04/28/2025 2:28 PM EDT Bobby Mayfield NP POINT OF CARE TEST ENTER/EDIT ORDERABLES Final Result * OK ARTHROCENTESIS/ASPIRATION/INJECTION MAJOR JOINT/BURSA W/O U/S GUIDANCE (04/12/2025 2:45 PM EDT) Mello Shay MD - 04/12/2025 2:45 PM EDT Mello [...] with patient: Verbal Pre-procedure timeout performed: yes Mello Lewis MD IN CLINIC/BEDSIDE ORDERABLES Fin al Result * (ABNORMAL) Basic metabolic panel (12/20/2024 1:31 PM EDT) Sodium 138 133 - 145 mmol/L LAB CHEMISTRY METHOD 12/20/2024 4:33 PM [facility] Potassium 3.9 3.5 - 5.5 mmol/L LAB CHEMISTRY METHOD 12/20/2024 4:33 PM [facility] Chloride 104 96 - 110 mmol/L LAB CHEMISTRY METHOD 12/20/2024 4:33 PM [facility] CO2 27 21 - 32 mmol/L LAB CHEMISTRY METHOD 12/20/2024 4:33 PM [facility] Anion Gap 7 3 - 11 LAB CHEMISTRY METHOD 12/20/2024 4:33 PM [facility] Glucose 107(H) 70 - 100 mg/dL LAB CHEMISTRY METHOD 12/20/2024 4:33 PM EDT [facility] BUN 11 5 - 25 mg/dL LAB CHEMISTRY METHOD 12/20/2024 4:33 PM EDT [facility] Creatinine 0.81 0.70 - 1.30 mg/dL LAB CHEMISTRY METHOD 12/20/2024 4:33 PM EDT [facility] eGFR 93 >=60 mL/min/1. 73m2 LAB CHEMISTRY METHOD 12/20/2024 4:33 PM EDT [facility] Comment:Calculation based on the Chronic Kidney Disease Epidemiology Collaboration (CKD-EPI) equation refit without adjustment for race. BUN/Creatinine Ratio 13.6 LAB CHEMISTRY METHOD 12/20/2024 4:33 PM EDT [facility] Calcium 9.1 8.5 - 10.5 mg/dL LAB CHEMISTRY METHOD 12/20/2024 4:33 PM EDT [facility] Blood Venous blood specimen / Unknown Venipuncture / Unknown 12/20/2024 1:31 PM EDT 12/20/2024 1:35 PM EDT us Collette Avalos MD LAB BLOOD ORDERABLES Final Result [facility] [address] [place] [address], * (ABNORMAL) Lipid panel with reflex to [...] 4.4 LAB CHEMISTRY METHOD 07/28/2024 6:57 PM EST [facility] Blood Venous blood specimen / Unknown Venipuncture / Unknown 07/28/2024 3:53 PM EST 07/28/2024 3:53 PM EST us Ca Durán NP LAB BLOOD ORDERABLES Final Resul t [facility] [address] [place] [address], * CT LUNG SCREENING LOW DOSE (03/17/2023 3:36 PM EDT) Anatomical Region Laterality Modality Computed Tomogra phy 03/17/2023 1:40 PM EDT Narrative 03/17/2023 3:36 PM EDT [facility] Diagnostic Imaging Department [address] [place] [address] Patient: JOYYURIYO.B./Age/Sex: 1950 - 72 - M Unit#: [id number] Location/Status: SPDICATLS/REG CLI Mnemonic/Ordering Site: CTLUNGLD/SPCT Ordering [...] Procedure Note Jame Zamora MD - 08/26/2023 [facility] Diagnostic Imaging Department [address] [place] [id number] Patient: YURIY JOY /Age/Sex: 1950 - 72 - M Unit#: [id number] Location/Status: SPDICATLS/REG CLI Mnemonic/Ordering Site: [facility] Ordering [...] no interpretation Anatomical Region Laterality Modality Other Emily Provider HEALTH MAINTENANCE Final Result * Colonoscopy (05/01/2020) Colonoscopy abstracted, no interpretation Anatomical Region Laterality Modality Other Historical Provider HEALTH MAINTENANCE Final Result * Hepatitis C Screening (01/25/2013) Hepatitis C Screening abstracted Historical Provider HEALTH MAINTENANCE Final Result from Last 3 Months or Most Recently Relevant to Health Maintenance Insurance [employer] - [place] MEDICARE ADVANTAGE Advance Directives Documents on File Type Date Recorded Patient Director Instructional Material Expl anation Health Care Decision (hx) 06/11/2023 [...] Relationship Healthcare Agent Relationship Communication Britni Joy [facility] Health Care Agent Aide Piper Health Care Agent Care Teams Event Av Operator Relationship Specialty Start Date End Date Le Recinos DO [address] [place] [address] PCP - General 04/28/24
--- OUTSIDE RECORDS SUMMARY | 2025-05-19 15:52 | XMS_ITS | Encounter Summary ---
Author Organization [facility] Address [address] [place] [address] Care Team Providers Care Student Ministries Director Name Role Phone JorjeLe Primary Care Provider [phone] Encounter Details Date Type Department Care Team (Late st Contact Info) Description 09/22/2024 Lab Requisition [facility] - Main Lab [address] [facility] [place] [address] Bernadine Florez MD [address] [place], [place] [phone] Unspecified atrial fibrillation (CMS/HCC V24, CMS/HCC V28) [...] [facility] [address] [place] [phone] Aide Linares NP [address] [place] [address] documented as of this encounter Procedures Procedure Name Priority Date/Time Associated Diagnosis Comments PROTHROMBIN TIME WITH INR Routine 09/23/2024 6:12 AM EST Unspecified atrial fibrillation (CMS/HCC) documented in this encounter Results * (ABNORMAL) Prothrombin time with INR (09/23/2024 6:12 AM EST) Protime 17.7(H) 10.6 - 13.9 sec LAB COAGULATION METHOD 09/23/2024 9:33 AM EST [facility] INR 1.4 LAB COAGULATION METHOD 09/23/2024 9:33 AM EST [facility] Blood Venous blood specimen / Unknown Venipuncture / Unknown 09/23/2024 6:12 AM EST 09/23/2024 9:14 AM EST us Bernadine Florez MD LAB BLOOD ORDERABLES Final Resul t [facility] [address] [place] [address], documented in this encounter Visit Diagnoses Diagnosis Unspecified atrial fibrillation (CMS/HCC V24, CMS/HCC V28) documented in this encounter Additional Health Concerns Infection Onset Date Last Indicated Resolved Time Tuberculosis Rule-Out 01/12/2025 01/12/20252024 7:05 PM EDT documented as of this encounter Care Teams Student Ministries Director Relationship Specialty Start Date End Date Le Recinos DO [address] [place] [address] PCP - General 04/28/24 documented as of this encounter
--- OUTSIDE RECORDS SUMMARY | 2025-05-19 15:52 | XMS_ITS | Encounter Summary ---
Author Organization [facility] Address [address] [place] [address] Care Team Providers Care Catcher Helper Name Role Phone JorjeLe Primary Care Provider [phone] Encounter Details Date Type Department Care Team (Late st Contact Info) Description 10/17/2024 Lab Requisition [facility] - Main Lab [address] [place] [address] Bernadine Florez MD [address] [place], [place] [phone] Unspecified atrial fibrillation (CMS/HCC V24, CMS/HCC V28) [...] [facility] [address] [place] [phone] Aide Linares NP [address] [place] [address] documented as of this encounter Procedures Procedure Name Priority Date/Time Associated Diagnosis Comments PROTHROMBIN TIME WITH INR Routine 10/18/2024 6:59 AM EDT Unspecified atrial fibrillation (CMS/HCC) documented in this encounter Results * (ABNORMAL) Prothrombin time with INR (10/18/2024 6:59 AM EDT) Protime 24.7(H) 10.6 - 13.9 sec LAB COAGULATION METHOD 10/18/2024 10:43 AM EDT [facility] INR 2.0 LAB COAGULATION METHOD 10/18/2024 10:43 AM EDT [facility] Blood Venous blood specimen / Unknown Venipuncture / Unknown 10/18/2024 6:59 AM EDT 10/18/2024 9:34 AM EDT us Bernadine Florez MD LAB BLOOD ORDERABLES Final Resul t [facility] [address] [place] [address], documented in this encounter Visit Diagnoses Diagnosis Unspecified atrial fibrillation (CMS/HCC V24, CMS/HCC V28) documented in this encounter Additional Health Concerns Infection Onset Date Last Indicated Resolved Time Tuberculosis Rule-Out 01/12/2025 01/12/20252024 7:05 PM EDT documented as of this encounter Care Teams Catcher Helper Relationship Specialty Start Date End Date Le Recinos DO [address] [place] [address] PCP - General 04/28/24 documented as of this encounter
--- OUTSIDE RECORDS SUMMARY | 2025-05-19 15:52 | XMS_ITS | Encounter Summary ---
Author Organization [facility] Address [address] [place] [address] Care Team Providers Care Sound Engineering Technician Name Role Phone FerozLe gomes Primary Care Provider [phone] Encounter Details Date Type Department Care Team (Late st Contact Info) Description 09/26/2024 Lab Requisition [facility] - Main Lab [address] [facility] [place] [phone] Bernadine Florez MD [address] [place] [address] Other malaise; Unspecified atrial fibrillation (CMS/HCC V24, [...] Office Visit Internal Medicine - [facility] [address] [facility] MD [phone] Aide Linares, LEWIS [address] [place] [address] documented as of this encounter Procedures Procedure [...] Resul t [facility] [address] [place] [address], * Basic metabolic panel (09/27/2024 7:16 AM EDT) Sodium 136 133 - 145 mmol/L LAB CHEMISTRY METHOD 09/27/2024 10:08 AM [facility] Potassium 4.4 3.5 - 5.5 mmol/L LAB CHEMISTRY METHOD 09/27/2024 10:08 AM [facility] Chloride 103 96 - 110 mmol/L LAB CHEMISTRY METHOD 09/27/2024 10:08 AM [facility] CO2 25 21 - 32 mmol/L LAB CHEMISTRY METHOD 09/27/2024 10:08 AM [facility] Anion Gap 8 3 - 11 LAB CHEMISTRY METHOD 09/27/2024 10:08 AM [facility] Glucose 99 70 - 100 mg/dL LAB CHEMISTRY METHOD 09/27/2024 10:08 AM [facility] BUN 25 5 - 25 mg/dL LAB CHEMISTRY METHOD 09/27/2024 10:08 AM [facility] Creatinine 0.97 0.70 - 1.30 mg/dL LAB CHEMISTRY METHOD 09/27/2024 10:08 AM [facility] eGFR 82 >=60 mL/min/1. 73m2 LAB CHEMISTRY METHOD 09/27/2024 10:08 AM [facility] Comment:Calculation based on the Chronic Kidney Disease Epidemiology Collaboration (CKD-EPI) equation refit without adjustment for race. BUN/Creatinine Ratio 25.8 LAB CHEMISTRY METHOD 09/27/2024 10:08 AM [facility] Calcium 9.5 8.5 - 10.5 mg/dL LAB CHEMISTRY METHOD 09/27/2024 10:08 AM [facility] Blood Venous blood specimen / Unknown Venipuncture / Unknown 09/27/2024 7:16 AM EDT 09/27/2024 9:16 AM EDT us Bernadine Florez MD LAB BLOOD ORDERABLES Final Resul t [facility] [address] [place] [address], * (ABNORMAL) Complete blood count (09/27/2024 7:16 AM EDT) WBC 6.6 4.8 - 10.8 K/mcL LAB HEMETOLOGY METHOD 09/27/2024 9:39 AM EDT [facility] RBC 4.20(L) 4.50 - 5.50 M/mcL LAB HEMETOLOGY [facility]24 [facility] Hemoglobin 11.9(L) 13.5 - 17.5 g/dL LAB HEMETOLOGY METHOD 09/27/2024 9:39 AM [facility] Hematocrit 38.0(L) 42.0 - 54.0 % LAB HEMETOLOGY METHOD 09/27/2024 9:39 AM [facility] MCV 90.3 79.0 - 98.0 FL LAB HEMETOLOGY METHOD 09/27/2024 9[facility] MCH 28.3 27.0 - 32.0 pcg LAB HEMETOLOGY METHOD 09/27/2024 9:39 AM T [facility] MCHC 31.3(L) 32.0 - 37.0 g/dL LAB HEMETOLOGY METHOD 09/27/2024 9:39 AM [facility] RDW 14.3 11.0 - 15.0 % LAB HEMETOLOGY METHOD 09/27/2024 9:39 AM [facility] Platelets 292 130 - 400 K/mcL LAB HEMETOLOGY METHOD 09/27/2024 9:39 AM [facility] MPV 10.1 7.0 - [...] Resul t [facility] [address] [place] [address], documented in this encounter Visit Diagnoses Diagnosis Other malaise Unspecified atrial fibrillation (CMS/HCC V24, CMS/HCC V28) documented in this encounter Additional Health Concerns Infection Onset Date Last Indicated Resolved Time Tuberculosis Rule-Out 01/12/2025 01/12/20252024 7:05 PM EDT documented as of this encounter Care Teams Sound Engineering Technician Relationship Specialty Start Date End Date Le Recinos DO [address] [place] [address] PCP - General 04/28/24 documented as of this encounter
--- OUTSIDE RECORDS SUMMARY | 2025-05-19 15:52 | XMS_ITS ---
Author Organization [place] [address] [address] [facility] Building Address [address] [place] [phone] Phone Care Team Providers Care Warehouse Packer Name Role Phone Le Recinos DO Primary Care Provider [phone] Active Problems Problem Noted Date Diagnosed Date [...] Z-Savage. Squamous cell carcinoma lung , left (CMS/[facility] V24, CMS/[facility] V28) 06/30/2023 Overview (05/31/2024): 04/30/2023 status post [...] how the size, shape, and foreign exchange dealer time affect her level of suspicion for [...] that I will have him see his junior designer for a risk assessment as well as a independent freight agent to give recommendations around anticoagulation around surgery. He certainly will have to stop his Coumadin 5 days prior to operation but the question of a bridge or what to bridge with. 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 06/20/2022 Mixed hyperlipidemia 06/20/2022 Primary hypertension 04/23/2022 Coronary artery disease due to calcified coronar y lesion 03/18/2022 Lab test positive for detection of COVID-19 viru s 07/11/2021 Overview (05/31/2024): 07/03/21, [facility] 07/03/21 Thoracic aortic aneurysm (CMS/HCC V24) Elevated LFTs 11/27/2020 IBS (irritable bowel syndrome) 02/03/2020 Overview (05/31/2024): Diarrhea predominant Chronic diarrhea 12/23/2019 Fatty liver 07/09/2019 Nephrolithiasis 07/09/2019 Diplopia 06/26/2017 Overview (05/31/2024): 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 Neg CN 2004. Small polyps x 2 at CN 05/13/2011: Pathology report: Tubular adenomas x 2. 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
--- OUTSIDE RECORDS SUMMARY | 2025-05-19 15:52 | XMS_ITS | Encounter Summary ---
Author Organization [facility] Address [address] [place] [address] Care Team Providers Care Tension Machine Operator Name Role Phone JorjeLe Primary Care Provider [phone] Encounter Details Date Type Department Care Team (Late st Contact Info) Description 10/20/2024 Lab Requisition [facility] - Main Lab [address] [place] [address] Bernadine Florez MD [address] [place], [place] [phone] Unspecified atrial fibrillation (CMS/HCC V24, CMS/HCC V28) [...] [facility] [address] [place] [address] Aide Linares NP [address] [place] [address] documented as of this encounter Procedures Procedure Name Priority Date/Time Associated Diagnosis Comments PROTHROMBIN TIME WITH INR Routine 10/21/2024 5:44 AM EDT Unspecified atrial fibrillation (CMS/HCC) documented in this encounter Results * (ABNORMAL) Prothrombin time with INR (10/21/2024 5:44 AM EDT) Protime 25.4(H) 10.6 - 13.9 sec LAB COAGULATION METHOD 10/21/2024 8:[address] [facility] INR 2.0 LAB COAGULATION METHOD 10/21/2024 8:[address] [facility] Blood Venous blood specimen / Unknown Venipuncture / Unknown 10/21/2024 5:44 AM EDT 10/21/2024 8:08 AM EDT us Bernadine Florez MD LAB BLOOD ORDERABLES Final Resul t [facility] [address] [place] [address], documented in this encounter Visit Diagnoses Diagnosis Unspecified atrial fibrillation (CMS/HCC V24, CMS/HCC V28) documented in this encounter Additional Health Concerns Infection Onset Date Last Indicated Resolved Time Tuberculosis Rule-Out 01/12/2025 01/12/20252024 7:05 PM EDT documented as of this encounter Care Teams Tension Machine Operator Relationship Specialty Start Date End Date Le Recinos DO [address] [place] [address] PCP - General 04/28/24 documented as of this encounter
--- OUTSIDE RECORDS SUMMARY | 2025-05-19 15:52 | XMS_ITS | Encounter Summary ---
Author Organization [facility] Address [address] [place] [address] Care Team Providers Care Asset Card Clerk Name Role Phone JorjeLe Primary Care Provider Encounter Details Date Type Department Care Team (Late st Contact Info) Description 10/06/2024 Lab Requisition [facility] - Main Lab [address] [place] [address] Bernadine Florez MD [address] [place], [place] [phone] Unspecified atrial fibrillation (CMS/HCC V24, CMS/HCC V28) [...] PM EST [facility] [address] [place] [address] Aide Linares NP [address] [place] [address] documented as of this encounter Procedures Procedure [...] t [facility] [address] [place] [address], documented in this encounter Visit Diagnoses Diagnosis Unspecified atrial fibrillation (CMS/HCC V24, CMS/HCC V28) documented in this encounter Additional Health Concerns Infection Onset Date Last Indicated Resolved Time Tuberculosis Rule-Out 01/12/2025 01/12/20252024 7:05 PM EDT documented as of this encounter Care Teams Asset Card Clerk Relationship Specialty Start Date End Date Le Recinos DO [address] [place] [address] PCP - General 04/28/24 documented as of this encounter
--- OUTSIDE RECORDS SUMMARY | 2025-05-19 15:52 | XMS_ITS | Encounter Summary ---
Author Organization [facility] Address [address] [place] [address] Care Team Providers Care Ep Tech Name Role Phone Le Recinos DO Primary Care Provider [phone] Encounter Details Date Type Department Care Team (Late st Contact Info) Description 05/19/2025 Anticoagulation - Warfarin Visit [facility] [address] [place] [address] Le Recinos DO [address] [place] [address] Deep vein thrombosis (DVT) of distal vein [...] PM EST Office Visit Internal Medicine - [facility] [address] [place] [address] Aide Linares NP [address] [place] [address] documented as of this encounter Visit Diagnoses Diagnosis Deep vein thrombosis (DVT) of distal vein of left lower extremity, unspecified chronicity (CMS/HCC V24, CMS/HCC V28)- Primary Factor V Leiden mutation ([facility]/HCC V24) Primary hypercoagulable state documented in this encounter Care Teams Ep Tech Relationship Specialty Start Date End Date Le Recinos DO [address] [place] [address] PCP - General 04/28/24 documented as of this encounter
--- OUTSIDE RECORDS SUMMARY | 2025-05-19 15:52 | XMS_ITS | Encounter Summary ---
Author Organization [facility] Address [address] [place] [address] Care Team Providers Care Copy Lathe Tender Name Role Phone oJrjeLe Primary Care Provider Encounter Details Date Type Department Care Team (Late st Contact Info) Description 09/21/2024 Lab Requisition [facility] - Main Lab [address] [place] [address] Mukul Connolly [facility] [address] [facility] [address] [facility] [address] [place] [address] Unspecified atrial fibrillation (CMS/HCC V24, CMS/HCC V28) [...] EST [facility] [address] [place], [place] [phone] Aide Linares, LEWIS [address] [place] [address] documented as of this encounter Procedures Procedure [...] Result [facility] [address] [place] [address], documented in this encounter Visit Diagnoses Diagnosis Unspecified atrial fibrillation (CMS/HCC V24, CMS/HCC V28) documented in this encounter Additional Health Concerns Infection Onset Date Last Indicated Resolved Time Tuberculosis Rule-Out 01/12/2025 01/12/20252024 7:05 PM EDT documented as of this encounter Care Teams Copy Lathe Tender Relationship Specialty Start Date End Date Le Recinos DO [address] [place] [address] PCP - General 04/28/24 documented as of this encounter
--- OUTSIDE RECORDS SUMMARY | 2025-05-19 15:52 | XMS_ITS | Encounter Summary ---
Author Organization [facility] Address [address] [place] [address] Care Team Providers Care Public Accountant Name Role Phone FerozLe gomes Primary Care Provider [phone] Encounter Details Date Type Department Care Team (Late st Contact Info) Description 10/01/2024 Lab Requisition [facility] - Main Lab [address] [place] [phone] Bernadine Florez MD [address] [place] [address] Other malaise; Unspecified atrial fibrillation (CMS/HCC V24, [...] EST Office Visit Internal Medicine - [facility] [address] [place] [address] Aide Linares, LEWIS [address] [place] [address] documented as of this encounter Visit Diagnoses Diagnosis Other malaise Unspecified atrial fibrillation (CMS/HCC V24, CMS/HCC V28) documented in this encounter Additional Health Concerns Infection Onset Date Last Indicated Resolved Time Tuberculosis Rule-Out 01/12/2025 01/12/20252024 7:05 PM EDT documented as of this encounter Care Teams Public Accountant Relationship Specialty Start Date End Date Le Recinos DO [address] [place] [address] PCP - General 04/28/24 documented as of this encounter
--- OUTSIDE RECORDS SUMMARY | 2025-05-19 15:52 | XMS_ITS | Encounter Summary ---
Author Organization [facility] Address [address] [place] [address] Care Team Providers Care Research Study Assistant Name Role Phone JorjeLe Primary Care Provider [phone] Encounter Details Date Type Department Care Team (Late st Contact Info) Description 10/27/2024 Lab Requisition [facility] - Main Lab [address] [place] [address] Bernadine Florez MD [address] [place], [place] [phone] Unspecified atrial fibrillation (CMS/HCC V24, CMS/HCC V28) [...] PM EST Office Visit [facility] [address] [place] [address] Aide Linares NP [address] [place] [address] documented as of this encounter Procedures Procedure Name Priority Date/Time Associated Diagnosis Comments PROTHROMBIN TIME WITH INR Routine 10/28/2024 5:32 AM EDT Unspecified atrial fibrillation (CMS/HCC) documented in this encounter Results * (ABNORMAL) Prothrombin time with INR (10/28/2024 5:32 AM EDT) Protime 25.5(H) 10.6 - 13.9 sec LAB COAGULATION METHOD 10/28/2024 10:39 AM EDT [facility] INR 2.1 LAB COAGULATION METHOD 10/28/2024 10:39 AM EDT [facility] Blood Venous blood specimen / Unknown Venipuncture / Unknown 10/28/2024 5:32 AM EDT 10/28/2024 9:27 AM EDT us Bernadine Florez MD LAB BLOOD ORDERABLES Final Resul t [facility] [address] [place] [address], documented in this encounter Visit Diagnoses Diagnosis Unspecified atrial fibrillation (CMS/HCC V24, CMS/HCC V28) documented in this encounter Additional Health Concerns Infection Onset Date Last Indicated Resolved Time Tuberculosis Rule-Out 01/12/2025 01/12/20252024 7:05 PM EDT documented as of this encounter Care Teams Research Study Assistant Relationship Specialty Start Date End Date Le Recinos DO [address] [place] [address] PCP - General 04/28/24 documented as of this encounter
--- OUTSIDE RECORDS SUMMARY | 2025-05-19 15:52 | XMS_ITS | Encounter Summary ---
Author Organization [facility] Address [address] [place] [address] Care Team Providers Care Carpet Installer Helper Name Role Phone FerozLe gomes Primary Care Provider [phone] Encounter Details Date Type Department Care Team (Late st Contact Info) Description 10/10/2024 Lab Requisition [facility] - Main Lab [address] [place] [phone] Bernadine Florez MD [address] [place] [address] Other malaise; Unspecified atrial fibrillation (CMS/HCC V24, [...] PM EST Office Visit Internal Medicine - [facility] [address] [place] [address] Aide Linares, LEWIS [address] [place] [address] documented as of this encounter Visit Diagnoses Diagnosis Other malaise Unspecified atrial fibrillation (CMS/HCC V24, CMS/HCC V28) documented in this encounter Additional Health Concerns Infection Onset Date Last Indicated Resolved Time Tuberculosis Rule-Out 01/12/2025 01/12/20252024 7:05 PM EDT documented as of this encounter Care Teams Carpet Installer Helper Relationship Specialty Start Date End Date Le Recinos DO [address] [place] [address] PCP - General 04/28/24 documented as of this encounter
--- OUTSIDE RECORDS SUMMARY | 2025-05-19 15:52 | XMS_ITS | Encounter Summary ---
Author Organization [facility] Address [address] [place] [address] Care Team Providers Care Guide Changer Name Role Phone FerozLe gomes Primary Care Provider Encounter Details Date Type Department Care Team (Late st Contact Info) Description 10/10/2024 Lab Requisition [facility] - Main Lab [address] [place] [phone] Bernadine Florez MD [address] [place] [address] Other malaise; Unspecified atrial fibrillation (CMS/HCC V24, [...] Office Visit Internal Medicine - [facility] [address] [facility] [place] [phone] Aide Linaers, LEWIS [address] [place] [address] documented as of this encounter Procedures Procedure [...] Resul t [facility] [address] [place] [address], * (ABNORMAL) Basic metabolic panel (10/11/2024 6:48 AM EDT) Sodium 139 133 - 145 mmol/L LAB CHEMISTRY METHOD 10/11/2024 12:02 PM [facility] Potassium 4.0 3.5 - 5.5 mmol/L LAB CHEMISTRY METHOD 10/11/2024 12:02 PM [facility] Chloride 105 96 - 110 mmol/L LAB CHEMISTRY METHOD 10/11/2024 12:02 PM [facility] CO2 24 21 - 32 mmol/L LAB CHEMISTRY METHOD 10/11/2024 12:02 PM [facility] Anion Gap 10 3 - 11 LAB CHEMISTRY METHOD 10/11/2024 12:02 PM [facility] Glucose 100 70 - 100 mg/dL LAB CHEMISTRY METHOD 10/11/2024 12:02 PM [facility] BUN 18 5 - 25 mg/dL LAB CHEMISTRY METHOD 10/11/2024 12:02 PM [facility] Creatinine 0.68(L) 0.70 - 1.30 mg/dL LAB CHEMISTRY METHOD 10/11/2024 12:02 PM [facility] eGFR 98 >=60 mL/min/1. 73m2 LAB CHEMISTRY METHOD 10/11/2024 12:02 PM [facility] Comment:Calculation based on the Chronic Kidney Disease Epidemiology Collaboration (CKD-EPI) equation refit without adjustment for race. BUN/Creatinine Ratio 26.5 LAB CHEMISTRY METHOD 10/11/2024 12:02 PM [facility] Calcium 9.5 8.5 - 10.5 mg/dL LAB CHEMISTRY METHOD 10/11/2024 12:02 PM [facility] Blood Venous blood specimen / Unknown Venipuncture / Unknown 10/11/2024 6:48 AM EDT 10/11/2024 10:23 AM EDT us Bernadine Florez MD LAB BLOOD ORDERABLES Final Resul t [facility] [address] [place] [address], * (ABNORMAL) Complete blood count (10/11/2024 6:48 AM EDT) WBC 5.7 4.8 - 10.8 K/mcL LAB HEMETOLOGY METHOD 10/11/2024 11:52 AM EDT [facility] RBC 4.00(L) 4.50 - 5.50 M/mcL LAB HEMETOLOGY METHOD 10/11/2024 11:52 AM EDT [facility] Hemoglobin 11.1(L) 13.5 - 17.5 g/dL LAB HEMETOLOGY METHOD 10/11/2024 11:52 AM EDT [facility] Hematocrit 34.7(L) 42.0 - 54.0 % LAB HEMETOLOGY METHOD 10/11/2024 11:52 AM EDT [facility] MCV 87.0 79.0 - 98.0 FL LAB HEMETOLOGY METHOD 10/11/2024 11:[facility] MCH 27.8 27.0 - 32.0 pcg LAB HEMETOLOGY METHOD 10/11/2024 11:52 AM EDT [facility] MCHC 32.0 32.0 - 37.0 g/dL LAB HEMETOLOGY METHOD 10/11/2024 11:52 AM EDT [facility] RDW 13.7 11.0 - 15.0 [...] Resul t [facility] [address] [place] [address], documented in this encounter Visit Diagnoses Diagnosis Other malaise Unspecified atrial fibrillation (CMS/HCC V24, CMS/HCC V28) documented in this encounter Additional Health Concerns Infection Onset Date Last Indicated Resolved Time Tuberculosis Rule-Out 01/12/2025 01/12/20252024 7:05 PM EDT documented as of this encounter Care Teams Guide Changer Relationship Specialty Start Date End Date Le Recinos DO [address] [place] [address] PCP - General 04/28/24 documented as of this encounter
--- OUTSIDE RECORDS SUMMARY | 2025-05-19 15:52 | XMS_ITS | Encounter Summary ---
Author Organization [facility] Address [address] [place] [address] Care Team Providers Care Numerical Analysis Group Manager Name Role Phone JorjeLe Primary Care Provider [phone] Encounter Details Date Type Department Care Team (Late st Contact Info) Description 09/23/2024 Lab Requisition [facility] - Main Lab [address] [place] [address] Bernadine Florez MD [address] [place], [place] [phone] Unspecified atrial fibrillation (CMS/HCC V24, CMS/HCC V28) [...] PM EST [facility] [address] [place] [address] Aide Linares NP [address] [place] [address] documented as of this encounter Procedures Procedure Name Priority Date/Time Associated Diagnosis Comments PROTHROMBIN TIME WITH INR Routine 09/24/2024 7:47 AM EST Unspecified atrial fibrillation (CMS/HCC) documented in this encounter Results * (ABNORMAL) Prothrombin time with INR (09/24/2024 7:47 AM EST) Protime 18.4(H) 10.6 - 13.9 sec LAB COAGULATION METHOD 09/24/2024 11:18 AM EST [facility] INR 1.5 LAB COAGULATION METHOD 09/24/2024 11:18 AM EST [facility] Blood Venous blood specimen / Unknown Venipuncture / Unknown 09/24/2024 7:47 AM EST 09/24/2024 10:33 AM EST us Bernadine Florez MD LAB BLOOD ORDERABLES Final Resul t [facility] [address] [place] [address], documented in this encounter Visit Diagnoses Diagnosis Unspecified atrial fibrillation (CMS/HCC V24, CMS/HCC V28) documented in this encounter Additional Health Concerns Infection Onset Date Last Indicated Resolved Time Tuberculosis Rule-Out 01/12/2025 01/12/20252024 7:05 PM EDT documented as of this encounter Care Teams Numerical Analysis Group Manager Relationship Specialty Start Date End Date Le Recinos DO [address] [place] [address] PCP - General 04/28/24 documented as of this encounter
--- OUTSIDE RECORDS SUMMARY | 2025-05-19 15:52 | XMS_ITS | Encounter Summary ---
Author Organization [facility] Address [address] [place] [address] Care Team Providers Care Beer Brewer Name Role Phone JorjeLe Primary Care Provider [phone] Encounter Details Date Type Department Care Team (Late st Contact Info) Description 09/21/2024 Lab Requisition [facility] - Main Lab [address] [place] [address] Bernadine Florez MD [address] [place], [place] [phone] Unspecified atrial fibrillation (CMS/HCC V24, CMS/HCC V28) [...] Medicine - [facility] [address] [facility] [place] [address] Aide Linares, LEWIS [address] [place] [address] documented as of this encounter Visit Diagnoses Diagnosis Unspecified atrial fibrillation (CMS/HCC V24, CMS/HCC V28) documented in this encounter Additional Health Concerns Infection Onset Date Last Indicated Resolved Time Tuberculosis Rule-Out 01/12/2025 01/12/20252024 7:05 PM EDT documented as of this encounter Care Teams Beer Brewer Relationship Specialty Start Date End Date Le Recinos DO [address] [place] [address] PCP - General 04/28/24 documented as of this encounter
--- OUTSIDE RECORDS SUMMARY | 2025-05-19 15:52 | XMS_ITS | Encounter Summary ---
Author Organization 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; Chronic obstructive pulmonary [...] PM EST Office Visit Internal Medicine - [facility] [address] [place], [place] [phone] Aide Linares NP [address] [place] [address] documented as of this encounter Procedures Procedure Name Priority Date/Time Associated Diagnosis Comments PROTHROMBIN TIME WITH INR Routine 10/06/2024 8:29 AM EDT Essential (primary) hypertension 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 Chronic obstructive pulmonary disease, unspecified (CMS/HCC) COMPLETE BLOOD COUNT Routine 10/06/2024 8:29 AM EDT Essential (primary) hypertension correction (current) use of anticoagulants Chronic obstructive pulmonary disease, unspecified (CMS/HCC) BASIC METABOLIC PANEL Routine 10/06/2024 8:29 AM EDT Essential (primary) hypertension correction (current) use of anticoagulants Chronic obstructive pulmonary disease, unspecified (CMS/HCC) documented in this encounter Results * (ABNORMAL) Basic metabolic panel (10/06/2024 8:29 AM EDT) Sodium 137 133 - 145 mmol/L LAB CHEMISTRY METHOD 10/06/2024 1:22 PM EDT [facility] Potassium 4.4 3.5 - 5.5 mmol/L LAB CHEMISTRY METHOD 10/06/2024 1:22 PM EDT [facility] Chloride 106 96 - 110 mmol/L LAB CHEMISTRY METHOD 10/06/2024 1:22 PM EDT [facility] CO2 21 21 - 32 mmol/L LAB CHEMISTRY METHOD 10/06/2024 1:22 PM EDT [facility] Anion Gap 10 3 - 11 LAB CHEMISTRY METHOD 10/06/2024 1:22 PM EDT [facility] Glucose 116(H) 70 - 100 mg/dL LAB CHEMISTRY METHOD 10/06/2024 1:22 PM EDT [facility] BUN 12 5 - 25 mg/dL LAB CHEMISTRY METHOD 10/06/2024 1:22 PM EDT [facility] Creatinine 0.84 0.70 - 1.30 mg/dL LAB CHEMISTRY METHOD 10/06/2024 1:22 PM EDT [facility] eGFR 92 >=60 mL/min/1. 73m2 LAB CHEMISTRY METHOD 10/06/2024 1:22 PM EDT [facility] Comment:Calculation based on the Chronic Kidney Disease Epidemiology Collaboration (CKD-EPI) equation refit without adjustment for race. BUN/Creatinine Ratio 14.3 LAB CHEMISTRY METHOD 10/06/2024 1:22 PM EDT [facility] Calcium 8.8 8.5 - 10.5 mg/dL LAB CHEMISTRY METHOD 10/06/2024 1:22 PM EDT [facility] Blood Venous blood specimen / Unknown Venipuncture / Unknown 10/06/2024 8:29 AM EDT 10/06/2024 10:25 AM EDT us Bernadine Florez MD LAB BLOOD ORDERABLES Final Resul t [facility] [address] [place] [address], * (ABNORMAL) Prothrombin time with INR (10/06/2024 8:29 AM EDT) Protime 46.4(H) 10.6 - 13.9 sec LAB COAGULATION METHOD 10/06/2024 12:04 PM EDT [facility] INR 3.8 LAB COAGULATION METHOD 10/06/2024 12:04 PM EDT [facility] Blood Venous blood specimen / Unknown Venipuncture / Unknown 10/06/2024 8:29 AM EDT 10/06/2024 10:25 AM EDT Bernadine Florez MD LAB BLOOD ORDERABLES Final Resul t [facility] [address] [place] [address], * (ABNORMAL) Complete blood count (10/06/2024 8:29 AM EDT) WBC 7.8 4.8 - 10.8 K/mcL LAB HEMETOLOGY METHOD 10/06/2024 11:56 AM EDT [facility] RBC 4.30(L) 4.50 - 5.50 M/mcL LAB HEMETOLOGY METHOD 10/06/2024 11:56 AM EDT [facility] Hemoglobin 12.2(L) 13.5 - 17.5 g/dL LAB HEMETOLOGY METHOD 10/06/2024 11:56 AM EDT [facility] Hematocrit 37.6(L) 42.0 - 54.0 % LAB HEMETOLOGY METHOD 10/06/2024 11:56 AM EDT [facility] MCV 87.4 79.0 - 98.0 FL LAB HEMETOLOGY METHOD 10/06/2024 11:56 AM EDT [facility] MCH 28.4 27.0 - 32.0 pcg LAB HEMETOLOGY METHOD 10/06/2024 11:56 AM EDT [facility] MCHC 32.4 32.0 - 37.0 g/dL LAB HEMETOLOGY METHOD 10/06/2024 11:56 AM EDT [facility] RDW 14.1 11.0 - 15.0 % LAB HEMETOLOGY METHOD 10/06/2024 11:56 AM EDT [facility] Platelets 259 130 - 400 K/mcL LAB HEMETOLOGY METHOD 10/06/2024 11:56 AM EDT [facility] MPV 10.5 7.0 - 11.0 FL LAB HEMETOLOGY METHOD 10/06/2024 11:56 AM EDT [facility] NRBC 0.0 <1.0 % LAB HEMETOLOGY METHOD 10/06/2024 11:56 AM EDT [facility] NRBC Absolute 0.00 <0.10 K/mcL LAB HEMETOLOGY METHOD 10/06/2024 11:56 AM EDT [facility] Blood Venous blood specimen / Unknown Venipuncture / Unknown 10/06/2024 8:29 AM EDT 10/06/2024 10:25 AM EDT Bernadine Florez MD LAB BLOOD ORDERABLES Final Resul t [facility] [address] [place] [address], documented in this encounter Visit Diagnoses Diagnosis Essential (primary) hypertension Unspecified essential hypertension 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
--- OUTSIDE RECORDS SUMMARY | 2025-05-19 15:52 | XMS_ITS | Encounter Summary ---
Author Organization [facility] Address [address] [place] [address] Care Team Providers Care Circuit Board Repair Technician Name Role Phone Le Recinos DO Primary Care Provider [phone] Reason for Visit * Reason Onset Date Comments Anticoagulation 05/12/2025 Encounter Details Date Type Department Care Team ([facility] st Contact Info) Description 05/12/2025 Telephone Internal Medicine - [facility] [address] [place] [address] Le Recinos DO [address] [place] [address] Social History Tobacco Use Types Packs/Day Years [...] He is requesting a callback RICK @ [phone] documented in this encounter Plan of Treatment Upcoming Encounters Date Type Department Care Team (Late st Contact Info) Description 06/03/2025 2:45 PM EST Office Visit Internal Medicine - [facility] [address] [place], [place] [phone] Aide Linares NP [address] [place] [address] documented as of this encounter Visit Diagnoses Not on filedocumented in this encounter Care Teams Circuit Board Repair Technician Relationship Specialty Start Date End Date Le Recinos DO [address] [place] [address] PCP - General 04/28/24 documented as of this encounter
--- OUTSIDE RECORDS SUMMARY | 2025-05-19 15:52 | XMS_ITS | Encounter Summary ---
Author Organization [facility] Address [address] [place] [address] Care Team Providers Care Accountant Controller Name Role Phone JorjeLe Primary Care Provider [phone] Encounter Details Date Type Department Care Team (Late st Contact Info) Description 09/29/2024 Lab Requisition [facility] - Main Lab [address] [place] [address] Bernadine Florez MD [address] [place], [place] [address] Unspecified atrial fibrillation (CMS/HCC V24, CMS/HCC V28) [...] [facility] [address] [place] [address] Aide Linares NP [address] [place] [address] documented as of this encounter Procedures Procedure Name Priority Date/Time Associated Diagnosis Comments PROTHROMBIN TIME WITH INR Routine 09/30/2024 6:25 AM EDT Unspecified atrial fibrillation (CMS/HCC) documented in this encounter Results * (ABNORMAL) Prothrombin time with INR (09/30/2024 6:25 AM EDT) Protime 38.4(H) 10.6 - 13.9 sec LAB COAGULATION METHOD 09/30/2024 9:22 AM EDT [facility] INR 3.1 LAB COAGULATION METHOD 09/30/2024 9:22 AM EDT [facility] Blood Venous blood specimen / Unknown Venipuncture / Unknown 09/30/2024 6:25 AM EDT 09/30/2024 8:46 AM EDT us Bernadine Florez MD LAB BLOOD ORDERABLES Final Resul t [facility] [address] [place] [address], documented in this encounter Visit Diagnoses Diagnosis Unspecified atrial fibrillation (CMS/HCC V24, CMS/HCC V28) documented in this encounter Additional Health Concerns Infection Onset Date Last Indicated Resolved Time Tuberculosis Rule-Out 01/12/2025 01/12/20252024 7:05 PM EDT documented as of this encounter Care Teams Accountant Controller Relationship Specialty Start Date End Date Le Recinos DO [address] [place] [address] PCP - General 04/28/24 documented as of this encounter
--- OUTSIDE RECORDS SUMMARY | 2025-05-19 15:52 | XMS_ITS | Encounter Summary ---
Author Organization [facility] Address [address] [place] [address] Care Team Providers Care Seamark Advanced Operator Maintainer Name Role Phone FerozLe gomes Primary Care Provider [phone] Encounter Details Date Type Department Care Team (Late st Contact Info) Description 10/23/2024 Lab Requisition [facility] - Main Lab [address] [place] [address] Bernadine Florez MD [address] [place], [place] [phone] Unspecified atrial fibrillation (CMS/HCC V24, CMS/HCC V28) [...] PM EST Office Visit [facility] [address] [place] [address] Aide Linares NP [address] [place] [address] documented as of this encounter Procedures Procedure Name Priority Date/Time Associated Diagnosis Comments PROTHROMBIN TIME WITH INR Routine 10/25/2024 6:52 AM EDT Unspecified atrial fibrillation (CMS/HCC) documented in this encounter Results * (ABNORMAL) Prothrombin time with INR (10/25/2024 6:52 AM EDT) Protime 27.0(H) 10.6 - 13.9 sec LAB COAGULATION METHOD 10/25/2024 9:52 AM EDT [facility] INR 2.2 LAB COAGULATION METHOD 10/25/2024 9:52 AM EDT [facility] Blood Venous blood specimen / Unknown Venipuncture / Unknown 10/25/2024 6:52 AM EDT 10/25/2024 9:17 AM EDT us Bernadine Florez MD LAB BLOOD ORDERABLES Final Resul t [facility] [address] [place] [address], documented in this encounter Visit Diagnoses Diagnosis Unspecified atrial fibrillation (CMS/HCC V24, CMS/HCC V28) documented in this encounter Additional Health Concerns Infection Onset Date Last Indicated Resolved Time Tuberculosis Rule-Out 01/12/2025 01/12/20252024 7:05 PM EDT documented as of this encounter Care Teams Seamark Advanced Operator Maintainer Relationship Specialty Start Date End Date Le Recinos DO [address] [place] [address] PCP - General 04/28/24 documented as of this encounter
--- OUTSIDE RECORDS SUMMARY | 2025-05-19 15:52 | XMS_ITS | Encounter Summary ---
Author Organization [facility] Address [address] [place] [address] Care Team Providers Care Restorative Coordinator Name Role Phone JorjeLe Primary Care Provider [phone] Encounter Details Date Type Department Care Team (Late st Contact Info) Description 10/29/2024 Lab Requisition [facility] - Main Lab [address] [place] [address] Bernadine Florez MD [address] [place], [place] [phone] Unspecified atrial fibrillation (CMS/HCC V24, CMS/HCC V28) [...] PM EST Office Visit Internal Medicine - [facility] [address] [facility] [place] [address] Aide Linares, LEWIS [address] [place] [address] documented as of this encounter Visit Diagnoses Diagnosis Unspecified atrial fibrillation (CMS/HCC V24, CMS/HCC V28) documented in this encounter Additional Health Concerns Infection Onset Date Last Indicated Resolved Time Tuberculosis Rule-Out 01/12/2025 01/12/20252024 7:05 PM EDT documented as of this encounter Care Teams Restorative Coordinator Relationship Specialty Start Date End Date Le Recinos DO [address] [place] [address] PCP - General 04/28/24 documented as of this encounter
--- OUTSIDE RECORDS SUMMARY | 2025-05-19 15:52 | XMS_ITS | Encounter Summary ---
Author Organization [facility] Address [address] [place] [address] Care Team Providers Care Guidance Consultant Name Role Phone Jorje Le Primary Care Provider [phone] Reason for Visit * Reason Onset Date Comments Procedure 04/29/2025 05/17/2025 RIGHT DIAGNOSTIC SIJ [facility] Encounter Details Date Type Department Care Team (Late st Contact Info) Description 04/29/2025 Telephone [facility] [address] [address] Divina Lozoya LPN Social History [...] Office Visit Internal Medicine - [facility] [address] [facility] [place] [address] Aide Linares, LEWIS [address] [place] [address] documented as of this encounter Visit Diagnoses Not on filedocumented in this encounter Care Teams Guidance Consultant Relationship Specialty Start Date End Date Le Recinos DO [address] [place], [place] [address] [address] PCP - General 04/28/24 documented as of this encounter
== END 2025-05-19 13:35 | disposition home or self-care (01) ==
LOC: HO.PMC 13:00
PROVIDERS: PCP Internal Medicine; Visit Provider Anesthesiology
DX: S32.010G Wedge compression fracture of first lumbar vertebra, subsequent encounter for fracture with delayed healing (principal); M47.816 Spondylosis without myelopathy or radiculopathy, lumbar region; G89.4 Chronic pain syndrome; M46.1 Sacroiliitis, not elsewhere classified; M81.0 Age-related osteoporosis without current pathological fracture; M53.3 Sacrococcygeal disorders, not elsewhere classified
CPT/HCPCS: 99214

== ENCOUNTER 2025-06-22 11:08 | Outpatient (AMB) | payer BC, SELFPAY ==
[2025-06-22 11:33] VITALS: BP 129/67; PULSE 91; RESP 16; O2SAT 97; BMI 22.6
--- NOTE | 2025-06-22 11:33 | MHC.OFFVIS ---
Vital Signs 06/22/25 11:33 Height 5 ft 11 in Weight 162 lb BMI 22.6 BP 129/67 Blood Pressure Location Rt brachial Position Sitting Respiration 16 Pulse 91 Pulse Source Pulse Oximeter Pulse Oximetry (%) 97 Oxygen Delivery Method Room Air Intake Visit Reasons: BONE DENSITY F/U Channel Lip Stiffener Insoles Required: No Accompanied by: Life Partner Allergies No Known Allergies Allergy (Verified 06/22/25 11:38) HPI Comments Details: Sly is back in my office for the follow-up and further management options discussion. He was approved by psychological evaluation for the trial of Nevro spinal cord stimulator. He had today multiple questions about trial he had also questions about management of his Coumadin medication during the trial. All the questions were explained to him to his satisfaction. We also discussed his bone density test which was performed at [facility]. His bone density is T-score in the spine -3.3 Z-score in his spine is -2.7 which is pretty much advanced osteoporosis. I recommended him to go to primary care physician with this course and receive treatment for osteoporosis. He also may consider treatment with library clerk talking books to treat this condition. Diagnostic sacroiliac joint injection on the right resulted in no pain improvement after the procedure. Before that he received diagnostic bilateral L2, L3, L4 medial branch blocks which were performed for him to diagnose the pain. Unfortunately patient reports no pain improvement at all. Therefore the only way I could possibly treat this pain for the patient is neuromodulation. I offered him to consider spinal cord stimulator Nevro versus intrathecal pain pump. The brochures were given to the patient. We had prolonged and detailed conversation about risks benefits of the procedure as well as psychological evaluation he needs to attend to become a candidate for the procedure. He has a history of depression but it is very remote. He does not take any medications for the depression at this time. I told him to give us a call if he decides to go for neuromodulation, I explained to him that my preference will be to start with Nevro SCS 1st. Prior: very pleasant 74 years old gentleman who presents in my office with complains on 2 pain generators: He complains on pain in the lower lumbar spine as well as pain in the left shoulder. She reports that pain in the back is bothering him the most. He reports that shoulder pain he received steroid injection in the office and this alleviated his pain for 1 month. His most severe pain is in the lower back and this problem he wants to address today. He reports this pain is most severe with standing and walking. Denies pain increase with coughing and sneezing. He denies pelvic organ dysfunction. He is unable to do activities of daily living, he is able to sleep normally, he can take care of himself but he can not function normally. He had x-ray radiology report performed for the lumbar spine which was done on 10/01/2024. It demonstrated diffuse osteopenia chronic compression deformity at L2 severe compression deformity superior endplate at L1 mild superior endplate compression deformity at L3 which is likely chronic. There is also mild compression deformity of the superior endplate L5 diffuse degenerative changes are noted which are worse in the lower lumbar spine. He had chiropractic manipulations to help his pain he received minimal results. Also had acupuncture to treat his pain also results were minimal. He continues to home exercise program, he completed physical therapy. Review of Systems Const All systems reviewed & are unremarkable except as noted in HPI and below ENT Reports Normal hearing present Neuro Reports Normal hearing present, Denies Abnormal speech present, Denies confusion and Denies Sensory deficit (Neuro) Psych Denies confusion Physical Exam Const General: no acute distress; No confusion Nutritional Appearance: malnourished and underweight Orientation/consciousness: patient oriented x3 and No confusion Limitations: physical limitations, ambulation with cane and ambulation with walker Eyes General: appearance normal, both eyes and all related structures Pupils: Equal, round and reactive pupils present EOM: EOMs intact bilaterally Neck Neck: Yes full ROM Chest Chest palpation & inspection: normal inspection of the chest Resp Effort & Inspection: normal respiratory effort, able to speak in complete sentences, normal respiratory pattern, no audible wheezes and no cough Cardio Jugular venous distension: no JVD GI Inspection: Yes normal to inspection Back/Spine/Pelvis Other: Flexing forward and flexing backwards aggravate his pain. Flexing backwards aggravate his pain more than flexing forward. Denies pelvic organ dysfunction. Valsalva maneuver is negative for pain increase. Oscar test is positive on the right, pelvic compression test and pelvic distraction test is positive on the right, yeoman's test is positive on the right, Stinchfield test is positive on the right, thigh thrust test is positive on the right. Gaenslen test is positive on the right. Neuro General: patient oriented x3, gait normal and No confusion Cranial nerves: Yes CN's II-XII intact bilaterally, Yes Equal, round and reactive pupils present, Yes Normal hearing present and Yes Ability to bilaterally elevate shoulders present Speech: No Abnormal speech present Gait exam (Neuro): Normal gait present Motor exam (neuro): 5/5 motor strength present throughout Sensory Exam: No Sensory deficit (Neuro) Extrem General: No pedal edema Psych Speech and movement: Normal speech and movement present Affect: normal affect Attitude: cooperative Thought process: Normal thought process present Thought content: Normal thought content present Insight: Good insight present (Psych) Judgement: Good judgement present (Psych) Results Reviewed Results Reviewed: MR LUMBAR SPINE WITHOUT CONTRAST CLINICAL INFORMATION: Wedge-shaped compression, L1 vertebra. COMPARISON: None available. TECHNIQUE: MRI of the lumbar spine was obtained using routine sequences without contrast. FINDINGS: Last rib-bearing vertebra labeled T12. Superior endplate compression deformity without bone marrow STIR signal abnormality, representing 60% with a 3 mm retropulsion upon central canal. Superior endplate compression deformity without bone marrow STIR signal abnormality, representing 40-50% volume loss without retropulsion at L2. Superior endplate compression deformity without bone marrow STIR signal abnormality, representing 30-40% volume loss without retropulsion at L3 vertebra. Superior endplate compression deformity without bone marrow STIR signal abnormality, representing 20% volume loss at L4 vertebra without retropulsion. Superior endplate compression deformity without bone marrow STIR signal abnormality, representing 50% volume loss at L5. No retropulsion. Superior endplate compression deformity, without bone marrow STIR signal abnormality, representing 20% volume loss at T12. No retropulsion Bone marrow inhomogeneity. No bone marrow STIR signal abnormality. Conus medullaris ends at pedicle of L1 with normal signal. T11-12: No disc herniation. No central spinal canal or neuroforamina stenosis. T12-L1: 3 mm retropulsion. Decreased AP diameter of the thecal sac. No compression upon conus medullaris. No neuroforamina stenosis. L1-2: Central marginal osteophyte formation. Reduced AP diameter of the thecal sac. No gross neuroforamina stenosis. L2-3: Broad-based disc bulging. Facet joint and ligamentum flavum hypertrophy. Reduced AP diameter of the thecal sac and bilateral neuroforamina narrowing. L3-4: Broad-based disc bulging. Facet joint and ligamentum flavum hypertrophy. Reduced AP diameter of the thecal sac and neuroforamina likely encroaching the neural limits. L4-5: Broad-based disc bulging. Facet joint and ligamentum flavum hypertrophy. Reduced AP diameter of the thecal sac and bilateral neuroforamina narrowing. L5-S1: Broad-based disc bulging. Facet joint hypertrophy. No central spinal canal stenosis. Bilateral neuroforamina narrowing without compressibility exiting nerve roots. No prevertebral compartment hematoma, mass or fluid collection.. IMPRESSION: Multilevel old likely osteoporotic compression fracture deformities throughout the vertebral bodies of the lumbar spine, the most pronounced at L1 resulting in 3 mm retropulsion. Central spinal canal stenosis at L3-4 and to a lesser extent L4-5, L2-3 on a multifactorial basis. Assessment & Plan Assessment & Plan (1) Compression fracture of L1 vertebra with delayed healing: Code(s): S32.010G - Wedge compression fracture of first lumbar vertebra, subsequent encounter for fracture with delayed healing Category: Medical (2) Spondylosis without myelopathy or radiculopathy, lumbar region: Code(s): M47.816 - Spondylosis without myelopathy or radiculopathy, lumbar region Category: Medical (3) Chronic pain syndrome: Code(s): G89.4 - Chronic pain syndrome Category: Medical (4) Osteoporosis: Code(s): M81.0 - Age-related osteoporosis without current pathological fracture Category: Medical (5) Spinal stenosis: Code(s): M48.00 - Spinal stenosis, site unspecified Category: Medical Plan MRI dictation is as above, none of his compression fractures are acute. Therefore his pain is not coming from the VCF. Diagnostic medial branch block resulted in no pain improvement at all. Therefore the pain is not coming from the facet joints. There is no nerve root compressions of the MRI as well. Therefore it is not radiculopathy. Diagnostic right sacroiliac joint injection resulted in no improvement of the pain. Neuromodulation was offered to the patient. See discussion as above. He was approved from psychological standpoint. He will be scheduled for [facility] SCS trial. Advanced osteoporosis also we discussed with the patient. The need for osteoporosis treatment was explained to the patient. Patient asked numerous questions. After my explanation he expressed understanding. Patient Instructions: I here by testify that I spent 32 minutes in conversation with this patient as well as planning his care and organizing this note. Coding Level of Care Code Est Pt Level 4 (47042) Diagnoses Compression fracture of L1 vertebra with delayed healing S32.010G Spondylosis without myelopathy or radiculopathy, lumbar region M47.816 Chronic pain syndrome G89.4 Osteoporosis M81.0 Spinal stenosis M48.00
--- OUTSIDE RECORDS SUMMARY | 2025-06-22 13:19 | XMS_ITS | Encounter Summary ---
Author Organization [facility] Address [address] [place] [address] Care Team Providers Care Farm Adviser Name Role Phone Lamar Fritz MD Primary Care Provider [phone] Encounter Details Date Type Department Care Team (Late st Contact Info) Description 05/19/2025 Anticoagulation - Warfarin Visit Adult Medicine [address] [phone] Angus Fernandez MD [address] [place] [address] Deep vein thrombosis (DVT) of distal vein [...] Care Team (Late st Contact Info) Description 07/06/2025 1:45 PM EST Clinical Support [facility] - [address] [address] 08/05/2025 1:00 PM EST Appointment [facility] CT Scan [address] [place] [phone] 12/21/2025 12:30 PM EDT Office Visit Internal Medicine - [address] [place] [phone] Lamar Fritz MD [address] [place] [address] documented as of this encounter Procedures Procedure Name Priority Date/Time Associated Diagnosis Comments PROTHROMBIN TIME WITH INR Routine 05/19/2025 documented in this encounter Results * Prothrombin time with INR (05/19/2025) INR 1.4 Prothrombin Time POC Blood Venous blood specimen / Unknown Historical Provider LAB BLOOD ORDERABLES Belinda l Result documented in this encounter Visit Diagnoses Diagnosis Deep vein thrombosis (DVT) of distal vein of left lower extremity, unspecified chronicity (CMS/HCC V24, CMS/HCC V28)- Primary Factor V Leiden mutation (CMS/HCC V24) Primary hypercoagulable state documented in this encounter Care Teams Farm Adviser Relationship Specialty Start Date End Date Lamar Fritz MD [address] [place], [place] [address]m[place], [place] PCP - General Internal Medicine 06/03/25 documented as of this encounter
--- OUTSIDE RECORDS SUMMARY | 2025-06-22 13:19 | XMS_ITS | Encounter Summary ---
Author Organization [facility] [address] Address [address] [place] [address] Care Team Providers Care Game Master Name Role Phone Lamar Fritz MD Primary Care Provider [phone] Encounter Details Date Type Department Care Team (Late st Contact Info) Description 09/26/2024 Lab Requisition [facility] - Main Lab [address] [place] [address] Bernadine Florez MD [address] [place] [address] Other malaise; Unspecified atrial fibrillation (CMS/HCC V24, [...] PM EST Clinical Support Coumadin Clinic - [address] [place] [address] 08/05/2025 1:00 PM EST Appointment [facility] CT Scan [address] [place] [address] 12/21/2025 12:30 PM EDT Office Visit Internal Medicine - [address] [address] Lamar Fritz MD [address] [place] [address] documented as of this encounter Procedures Procedure [...] LAB COAGULATION METHOD 09/27/2024 9:54 AM EDT [facility] INR 3.0 LAB COAGULATION METHOD 09/27/2024 9:54 AM EDT [facility] Blood Venous blood specimen / Unknown Venipuncture / Unknown 09/27/2024 7:16 AM EDT 09/27/2024 9:30 AM EDT us Bernadine Florez MD LAB BLOOD ORDERABLES Final Resul t [facility] [address] [place] [address], [place] [phone] * Basic metabolic panel (09/27/2024 7:16 AM EDT) Sodium 136 133 - 145 mmol/L LAB CHEMISTRY METHOD 09/27/2024 10:08 AM [facility] Potassium 4.4 3.5 - 5.5 mmol/L LAB CHEMISTRY METHOD 09/27/2024 10:08 AM [facility] Chloride 103 96 - 110 mmol/L LAB CHEMISTRY METHOD 09/27/2024 10:08 AM [facility] CO2 25 21 - 32 mmol/L LAB CHEMISTRY METHOD 09/27/2024 10:08 AM [facility] Anion Gap 8 3 - 11 LAB CHEMISTRY METHOD 09/27/2024 10:08 AM [facility] Glucose 99 70 - 100 mg/dL LAB CHEMISTRY METHOD 09/27/2024 10:08 AM [facility] BUN 25 5 - 25 mg/dL LAB CHEMISTRY METHOD 09/27/2024 10:08 AM [facility] Creatinine 0.97 0.70 - 1.30 mg/dL LAB CHEMISTRY METHOD 09/27/2024 10:08 AM [facility] eGFR 82 >=60 mL/min/1. 73m2 LAB CHEMISTRY METHOD 09/27/2024 10:08 AM [facility] Comment:Calculation based on the Chronic Kidney Disease Epidemiology Collaboration (CKD-EPI) equation refit without adjustment for race. BUN/Creatinine Ratio 25.8 LAB CHEMISTRY METHOD 09/27/2024 10:08 AM [facility] Calcium 9.5 8.5 - 10.5 mg/dL LAB CHEMISTRY METHOD 09/27/2024 10:08 AM T [facility] Blood Venous blood specimen / Unknown Venipuncture / Unknown 09/27/2024 7:16 AM EDT 09/27/2024 9:16 AM EDT us Bernadine Florez MD LAB BLOOD ORDERABLES Final Resul t [facility] [address] [place] [address], [place] [phone] * (ABNORMAL) Complete blood count (09/27/2024 7:16 AM EDT) WBC 6.6 4.8 - 10.8 K/mcL LAB HEMETOLOGY METHOD 09/27/2024 9:39 AM [facility] RBC 4.20(L) 4.50 - 5.50 M/mcL LAB HEMETOLOGY METHOD 09/27/2024 9:39 AM [facility] Hemoglobin 11.9(L) 13.5 - 17.5 g/dL LAB HEMETOLOGY METHOD 09/27/2024 9:39 AM [facility] Hematocrit 38.0(L) 42.0 - 54.0 % LAB HEMETOLOGY METHOD 09/27/2024 9:39 AM [facility] MCV 90.3 79.0 - 98.0 FL LAB HEMETOLOGY METHOD 09/27/2024 9:39 AM [facility] MCH 28.3 27.0 - 32.0 pcg LAB HEMETOLOGY METHOD 09/27/2024 9:39 AM [facility] MCHC 31.3(L) 32.0 - 37.0 g/dL LAB HEMETOLOGY METHOD 09/27/2024 9:39 AM [facility] RDW 14.3 11.0 - 15.0 % LAB HEMETOLOGY METHOD 09/27/2024 9:39 AM EDT [facility] Platelets 292 130 - 400 K/mcL LAB HEMETOLOGY METHOD 09/27/2024 9:39 AM EDT [facility] MPV 10.1 7.0 - 11.0 FL LAB HEMETOLOGY METHOD 09/27/2024 9:39 AM EDT [facility] NRBC 0.0 <1.0 % LAB HEMETOLOGY METHOD 09/27/2024 9:39 AM EDT [facility] NRBC Absolute 0.00 <0.10 K/mcL LAB HEMETOLOGY METHOD 09/27/2024 9:39 AM EDT [facility] Blood Venous blood specimen / Unknown Venipuncture / Unknown 09/27/2024 7:16 AM EDT 09/27/2024 9:26 AM EDT us Bernadine Florez MD LAB BLOOD ORDERABLES Final Resul t [facility] [address] [place] [address], documented in this encounter Visit Diagnoses Diagnosis Other malaise Unspecified atrial fibrillation (CMS/HCC V24, CMS/HCC V28) documented in this encounter Additional Health Concerns Infection Onset Date Last Indicated Resolved Time Tuberculosis Rule-Out 01/12/2025 01/12/20252024 7:05 PM EDT documented as of this encounter Care Teams Game Master Relationship Specialty Start Date End Date Lamar Fritz MD [address] [place] [address] PCP - General Internal Medicine 06/03/25 documented as of this encounter
--- OUTSIDE RECORDS SUMMARY | 2025-06-22 13:19 | XMS_ITS | Encounter Summary ---
Author Organization [facility] Address [address] [place] [address] Care Team Providers Care Marine Steam Fitter Helper Name Role Phone Lamar Fritz MD Primary Care Provider [phone] Encounter Details Date Type Department Care Team (Late st Contact Info) Description 09/29/2024 Lab Requisition [facility] - Main Lab [address] [facility] [place] [address] Bernadine Florez MD [address] [place] [address] Unspecified atrial fibrillation (CMS/HCC V24, CMS/HCC V28) [...] PM EST Clinical Support Cou[facility]in Clinic - [address] [address] 08/05/2025 1:00 PM EST Appointment [facility] CT Scan [address] [place] [address] 12/21/2025 12:30 PM EDT Office Visit Internal Medicine - [address] [phone] Lamar Fritz MD [address] [place] [address] documented as of this encounter Procedures Procedure Name Priority Date/Time Associated Diagnosis Comments PROTHROMBIN TIME WITH INR Routine 09/30/2024 6:25 AM EDT Unspecified atrial fibrillation (CMS/HCC) documented in this encounter Results * (ABNORMAL) Prothrombin time with INR (09/30/2024 6:25 AM EDT) Protime 38.4(H) 10.6 - 13.9 sec LAB COAGULATION METHOD 09/30/2024 9:22 AM EDT [facility] INR 3.1 LAB COAGULATION METHOD 09/30/2024 9:22 AM EDT [facility] Blood Venous blood specimen / Unknown Venipuncture / Unknown 09/30/2024 6:25 AM EDT 09/30/2024 8:46 AM EDT us Bernadine Florez MD LAB BLOOD ORDERABLES Final Resul t [facility] [address] [place] [address], documented in this encounter Visit Diagnoses Diagnosis Unspecified atrial fibrillation (CMS/[facility] V24, CMS/[facility] V28) documented in this encounter Additional Health Concerns Infection Onset Date Last Indicated Resolved Time Tuberculosis Rule-Out 01/12/2025 01/12/20252024 7:05 PM EDT documented as of this encounter Care Teams Marine Steam Fitter Helper Relationship Specialty Start Date End Date Lamar Fritz MD [address] [place] [address] PCP - General Internal Medicine 06/03/25 documented as of this encounter
--- OUTSIDE RECORDS SUMMARY | 2025-06-22 13:19 | XMS_ITS | Encounter Summary ---
Author Organization [facility] Address [address] [place] [address] Care Team Providers Care Nutrition Educator Name Role Phone Lamar Fritz MD Primary Care Provider [phone] Encounter Details Date Type Department Care Team (Late st Contact Info) Description 09/23/2024 Lab Requisition [facility] - Main Lab [address] [facility] [place] [address] Bernadine Florez MD [address] [place] [address] Unspecified atrial fibrillation (CMS/HCC V24, CMS/HCC V28) [...] PM EST Clinical Support Coumadin Clinic - [address] [address] 08/05/2025 1:[address] [facility] Scan [address] [place] [address] 12/21/2025 12:30 PM EDT Office Visit Internal Medicine - [address] [phone] Lamar Fritz MD [address] [place], [place] documented as of this encounter Procedures [...] Final Resul t [facility] [address] [place] [address], documented in this encounter Visit Diagnoses Diagnosis Unspecified atrial fibrillation (CMS/HCC V24, CMS/[facility] V28) documented in this encounter Additional Health Concerns Infection Onset Date Last Indicated Resolved Time Tuberculosis Rule-Out 01/12/2025 01/12/20252024 7:05 PM EDT documented as of this encounter Care Teams Nutrition Educator Relationship Specialty Start Date End Date Lamar Fritz MD [address] [place] [address] PCP - General Internal Medicine 06/03/25 documented as of this encounter
--- OUTSIDE RECORDS SUMMARY | 2025-06-22 13:19 | XMS_ITS | Encounter Summary ---
Author Organization [facility] Address [address] [place] [address] Care Team Providers Care Dice Dealer Name Role Phone Lamar Fritz MD Primary Care Provider [phone] Encounter Details Date Type Department Care Team (Late st Contact Info) Description 10/27/2024 Lab Requisition [facility] - Main Lab [address] [facility] [place] [address] Bernadine Florez MD [address] [place] [address] Unspecified atrial fibrillation (CMS/HCC V24, CMS/HCC V28) [...] PM EST Clinical Support [facility]in Clinic - [address] [address] 08/05/2025 1:00 PM EST Appointment [facility] CT Scan [address] [place] [address] 12/21/2025 12:30 PM EDT Office Visit Internal Medicine - [address] [phone] Lamar Fritz MD [address] [place] [address] documented as of this encounter Procedures Procedure Name Priority Date/Time Associated Diagnosis Comments PROTHROMBIN TIME WITH INR Routine 10/28/2024 5:32 AM EDT Unspecified atrial fibrillation (CMS/HCC) documented in this encounter Results * (ABNORMAL) Prothrombin time with INR (10/28/2024 5:32 AM EDT) Protime 25.5(H) 10.6 - 13.9 sec LAB COAGULATION METHOD 10/28/2024 10:39 AM EDT [facility] INR 2.1 LAB COAGULATION METHOD 10/28/2024 10:39 AM EDT [facility] Blood Venous blood specimen / Unknown Venipuncture / Unknown 10/28/2024 5:32 AM EDT 10/28/2024 9:27 AM EDT us Bernadine Florez MD LAB BLOOD ORDERABLES Final Resul t [facility] [address] [place] [address], documented in this encounter Visit Diagnoses Diagnosis Unspecified atrial fibrillation (CMS/[facility] V24, CMS/[facility] V28) documented in this encounter Additional Health Concerns Infection Onset Date Last Indicated Resolved Time Tuberculosis Rule-Out 01/12/2025 01/12/20252024 7:05 PM EDT documented as of this encounter Care Teams Dice Dealer Relationship Specialty Start Date End Date Lamar Fritz MD [address] [place] [address] PCP - General Internal Medicine 06/03/25 documented as of this encounter
--- OUTSIDE RECORDS SUMMARY | 2025-06-22 13:19 | XMS_ITS | Encounter Summary ---
Author Organization [facility] Address [address] [place] [address] Care Team Providers Care Marking Devices Assembler Name Role Phone Lamar Fritz MD Primary Care Provider [phone] Encounter Details Date Type Department Care Team (Late st Contact Info) Description 09/19/2024 Lab Requisition [facility] - Main Lab 299 [facility] [place] [address] Bernadine Florez MD [address] [place] [address] Chronic embolism and thrombosis of unspecified vein [...] PM EST Clinical Support [facility] - [address] [phone] 08/05/2025 1:00 PM EST Appointment [facility] CT Scan [address] [place] [phone] 12/21/2025 12:30 PM EDT Office Visit Internal Medicine - [address] [phone] Lamar Fritz MD [address] [place] [address] documented as of this encounter Procedures Procedure [...] t [facility] [address] [place] [address], documented in this encounter Visit Diagnoses Diagnosis Chronic embolism and thrombosis of unspecified vein documented in this encounter Additional Health Concerns Infection Onset Date Last Indicated Resolved Time Tuberculosis Rule-Out 01/12/2025 01/12/20252024 7:05 PM EDT documented as of this encounter Care Teams Marking Devices Assembler Relationship Specialty Start Date End Date Lamar Fritz MD [address] [place] [address] PCP - General Internal Medicine 06/03/25 documented as of this encounter
--- OUTSIDE RECORDS SUMMARY | 2025-06-22 13:19 | XMS_ITS | Encounter Summary ---
Author Organization [facility] Address [address] [place] [address] Care Team Providers Care Elevator Supervisor Name Role Phone Lamar Fritz MD Primary Care Provider Encounter Details Date Type Department Care Team (Late st Contact Info) Description 10/20/2024 Lab Requisition [facility] - Main Lab 299 [facility] [place] [address] Bernadine Florez MD [address] [place] [address] Unspecified atrial fibrillation (CMS/HCC V24, CMS/HCC V28) [...] PM EST Clinical Support [facility] - [address] [address] 08/05/2025 1:00 PM EST Appointment [facility] CT Scan [address] [place] [address] 12/21/2025 12:30 PM EDT Office Visit Internal Medicine - [address] [phone] Lamar Fritz MD [address] [place] [address] documented as of this encounter Procedures Procedure Name Priority Date/Time Associated Diagnosis Comments PROTHROMBIN TIME WITH INR Routine 10/21/2024 5:44 AM EDT Unspecified atrial fibrillation (CMS/HCC) documented in this encounter Results * (ABNORMAL) Prothrombin time with INR (10/21/2024 5:44 AM EDT) Protime 25.4(H) 10.6 - 13.9 sec LAB COAGULATION METHOD 10/21/2024 8:31 AM EDT [facility] INR 2.0 LAB COAGULATION METHOD 10/21/2024 8:31 AM EDT [facility] Blood Venous blood specimen / Unknown Venipuncture / Unknown 10/21/2024 5:44 AM EDT 10/21/2024 8:08 AM EDT us Bernadine Florez MD LAB BLOOD ORDERABLES Final Resul t [facility] [address] [place] [address], documented in this encounter Visit Diagnoses Diagnosis Unspecified atrial fibrillation (CMS/[facility] V24, CMS/[facility] V28) documented in this encounter Additional Health Concerns Infection Onset Date Last Indicated Resolved Time Tuberculosis Rule-Out 01/12/2025 01/12/20252024 7:05 PM EDT documented as of this encounter Care Teams Elevator Supervisor Relationship Specialty Start Date End Date Lamar Fritz MD [address] [place] [address] PCP - General Internal Medicine 06/03/25 documented as of this encounter
--- OUTSIDE RECORDS SUMMARY | 2025-06-22 13:19 | XMS_ITS | Encounter Summary ---
Author Organization [facility] Address [address] [place] [address] Care Team Providers Care Scarf And Anneal Operator Name Role Phone Lamar Fritz MD Primary Care Provider Encounter Details Date Type Department Care Team (Late st Contact Info) Description 09/21/2024 Lab Requisition [facility] - Main Lab 299 [facility] [place] [address] Bernadine Florez MD [address] [place] [address] Unspecified atrial fibrillation (CMS/HCC V24, CMS/HCC V28) [...] PM EST Clinical Support [facility] - [address] [place] [address] 08/05/2025 1:00 PM EST Appointment [facility] CT Scan [address] [place] [address] 12/21/2025 12:30 PM EDT Office Visit Internal Medicine - [address] [place] [address] Lamar Fritz MD [address] [place], [place] [address] [address] documented as of this encounter Visit Diagnoses Diagnosis Unspecified atrial fibrillation (CMS/HCC V24, CMS/HCC V28) documented in this encounter Additional Health Concerns Infection Onset Date Last Indicated Resolved Time Tuberculosis Rule-Out 01/12/2025 01/12/20252024 7:05 PM EDT documented as of this encounter Care Teams Scarf And Anneal Operator Relationship Specialty Start Date End Date Lamar Fritz MD [address] [place], [place] [address] [address] PCP - General Internal Medicine 06/03/25 documented as of this encounter
--- OUTSIDE RECORDS SUMMARY | 2025-06-22 13:19 | XMS_ITS | Encounter Summary ---
Author Organization [facility] Address [address] [place] [address] Care Team Providers Care Revenue Analyst Name Role Phone Lamar Fritz MD Primary Care Provider [phone] Encounter Details Date Type Department Care Team (Late st Contact Info) Description 06/06/2025 Results Follow-Up Internal Medicine - [facility] [address] [place] [address] Aide Linares NP [address] [place], [place] Social History Tobacco Use Types Packs/Day Years Used Date Smoking Tobacco: Former Cigarettes 2 60.8 0 08/18/1962 - 05/20/2023 Smokeless Tobacco: Never Alcohol Use Standard Drinks/Week Comments Not Currently 0 (1 standard drink = 0.6 oz pur e alcohol) Housing Instability Answer Date Recorde d Are you worried that in the next 2 months you may not have stable housing? No 06/03/2025 Food Access & Nutrition Answer Date Rec orded Do you have access to a vari ety of food including fruits and vegetables? Yes 06/03/2025 Health Literacy Answer Date Recorded How often do you need to hav e someone help you when you read instructions, pamphlets, or other written material from your doctor or pharmacy? Never 06/03/2025 Caregiver: How often do you need to have someone help you when you read instructions, pamphlets, or other written material from your doctor or pharmacy? Not on file 06/03/2025 Financial Risk Answer Date Recorded How hard is it for you to pa y for the very basics like food, housing, medical care, and air conditioning / heating? Not very hard 06/03/2025 Transportation Answer Date Recorded Has the lack of transportati on kept you from meetings, work, or from getting things needed for daily living? No Has the lack of transportati on kept you from medical appointments or from getting medications? No 06/03/2025 Social Isolation Answer Date Recorded How often do you feel lonely or isolated from th ose around you? Never 06/03/2025 Food Risk Answer Date Recorded Within the past 12 months we worried whether our food would run out before we got money to buy more. Never true 06/03/2025 Within the past 12 months th e food we bought just didn't last and we didn't have money to get more. Never true 06/03/2025 Dependent Care Answer Date Recorded Do you need help finding or paying for care for your loved ones. For example, child welfare consultant or elderly care for an older adult? No 06/03/2025 Education Answer Date Recorded Do you think completing more education or training, like finishing a GED, going to college, or learning a trade, would be helpful for you? No 06/03/2025 Living Situation Answer Date Recorded What is your living situation? Unrecognized valu e 06/03/2025 Interpersonal Safety Answer Date Record ed Physical Abuse Unrecognized value 01/12/2025 Verbal Abuse Unrecognized value 01/12/2025 Sex and Gender Information Value Date Recorded Sex Assigned at Male 10/12/2024 11:57 AM EDT Legal Sex Male 3:08 AM EST Gender Identity Male 10/12/2024 11:57 AM EDT Sexual Orientation Not on file documented as of this encounter Progress Notes * Aide Linares NP - 06/06/2025 8:35 AM EST My chart message sent. documented in this encounter Plan of Treatment Upcoming Encounters Date Type Department Care Team (Late st Contact Info) Description 07/06/2025 1:45 PM EST Clinical Support Cou[facility]in Clinic - [address] [address] 08/05/2025 1:00 PM EST Appointment [facility] CT Scan [address] [place] [address] 12/21/2025 12:30 PM EDT Office Visit Internal Medicine - [address] [phone] Lamar Fritz MD [address] [place] [address] documented as of this encounter Visit Diagnoses Not on filedocumented in this encounter Additional Health Concerns Assessment Noted Time PHQ-9 Depression Total Score: 0 06/03/20 3:16 PM EST documented as of this encounter Care Teams Revenue Analyst Relationship Specialty Start Date End Date Lamar Fritz MD [address] [place] [address] PCP - General Internal Medicine 06/03/25 documented as of this encounter
--- OUTSIDE RECORDS SUMMARY | 2025-06-22 13:19 | XMS_ITS | Encounter Summary ---
Author Organization [facility] Address [address] [place] [address] Care Team Providers Care Box Sealing Machine Feeder Name Role Phone Lamar Fritz MD Primary Care Provider [phone] Encounter Details Date Type Department Care Team (Late st Contact Info) Description 10/29/2024 Lab Requisition [facility] - Main Lab 299 [facility] [place] [address] Bernadine Florez MD [address] [place] [address] Unspecified atrial fibrillation (CMS/HCC V24, CMS/HCC V28) [...] PM EST Clinical Support [facility] Clinic - [address] [place] [address] 08/05/2025 1:00 PM EST Appointment [facility] CT Scan [address] [place] [address] 12/21/2025 12:30 PM EDT Office Visit Internal Medicine - [address] [place] [address] Lamar Fritz MD [address] [place], [place] [address] [address] documented as of this encounter Visit Diagnoses Diagnosis Unspecified atrial fibrillation (CMS/HCC V24, CMS/HCC V28) documented in this encounter Additional Health Concerns Infection Onset Date Last Indicated Resolved Time Tuberculosis Rule-Out 01/12/2025 01/12/20252024 7:05 PM EDT documented as of this encounter Care Teams Box Sealing Machine Feeder Relationship Specialty Start Date End Date Lamar Fritz MD [address] [place], [place] [address] [address] PCP - General Internal Medicine 06/03/25 documented as of this encounter
--- OUTSIDE RECORDS SUMMARY | 2025-06-22 13:19 | XMS_ITS | Encounter Summary ---
Author Organization [facility] Address [address] [place] [address] Care Team Providers Care Electronics Repair Technician Name Role Phone Lamar Fritz MD Primary Care Provider [phone] Encounter Details Date Type Department Care Team (Late st Contact Info) Description 09/22/2024 Lab Requisition [facility] - Main Lab 299 [facility] [place] [address] Bernadine Florez MD [address] [place] [address] Unspecified atrial fibrillation (CMS/HCC V24, CMS/HCC V28) [...] PM EST Clinical Support [facility] Clinic - [address] [address] 08/05/2025 1:00 PM EST Appointment [facility] CT Scan [address] [place] [address] 12/21/2025 12:30 PM EDT Office Visit Internal Medicine - [address] [phone] Lamar Fritz MD [address] [place], [place] documented as of this encounter Procedures Procedure Name Priority Date/Time Associated Diagnosis Comments PROTHROMBIN TIME WITH INR Routine 09/23/2024 6:12 AM EST Unspecified atrial fibrillation (CMS/HCC) documented in this encounter Results * (ABNORMAL) Prothrombin time with INR (09/23/2024 6:12 AM EST) Protime 17.7(H) 10.6 - 13.9 sec LAB COAGULATION METHOD 09/23/2024 9:33 AM EST [facility] INR 1.4 LAB COAGULATION METHOD 09/23/2024 9:33 AM EST [facility] Blood Venous blood specimen / Unknown Venipuncture / Unknown 09/23/2024 6:12 AM EST 09/23/2024 9:14 AM EST us Bernadine Florez MD LAB BLOOD ORDERABLES Final Resul t [facility] [address] [place] [address], documented in this encounter Visit Diagnoses Diagnosis Unspecified atrial fibrillation (CMS/HCC V24, CMS/[facility] V28) documented in this encounter Additional Health Concerns Infection Onset Date Last Indicated Resolved Time Tuberculosis Rule-Out 01/12/2025 01/12/20252024 7:05 PM EDT documented as of this encounter Care Teams Electronics Repair Technician Relationship Specialty Start Date End Date Lamar Fritz MD 305 [place] [address] PCP - General Internal Medicine 06/03/25 documented as of this encounter
--- OUTSIDE RECORDS SUMMARY | 2025-06-22 13:19 | XMS_ITS | Encounter Summary ---
Author Organization [facility] Address [address] [place] [address] Care Team Providers Care Record Center Specialist Name Role Phone Lamar Fritz MD Primary Care Provider [phone] Reason for Visit * Reason Onset Date Comments Anticoagulation 05/19/2025 Encounter Details Date Type Department Care Team ([facility] st Contact Info) Description 05/19/2025 Telephone Adult Medicine [address] [phone] [place], [place] Social History Tobacco Use Types Packs/Day Years [...] for your loved ones. 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 [...] PM EST [facility] [place] [address] 08/05/2025 1:00 PM EST Appointment [facility] CT Scan [address] [place] [address] 12/21/2025 12:30 PM EDT Office Visit Internal Medicine - [facility] [place] [address] [place], [place] [phone] Lamar Fritz MD [address] [place], [place] documented as of this encounter Visit Diagnoses Not on filedocumented in this encounter Care Teams Record Center Specialist Relationship Specialty Start Date End Date Lamar Fritz MD [address] [place], [place] PCP - General Internal Medicine 06/03/25 documented as of this encounter
--- OUTSIDE RECORDS SUMMARY | 2025-06-22 13:19 | XMS_ITS | Encounter Summary ---
Author Organization [facility] Address [address] [place] [address] Care Team Providers Care Police Lieutenant Patrol Name Role Phone Lamar Fritz MD Primary Care Provider [phone] Encounter Details Date Type Department Care Team (Late st Contact Info) Description 09/20/2024 Lab Requisition [facility] - Main Lab 299 [facility] [place] [address] Bernadine Florez MD [address] [place] [address] assisted (current) use of anticoagulants; Unspecified Escherichia coli [...] PM EST Clinical Support [facility] Clinic - [address] [address] 08/05/2025 1:00 PM EST Appointment [facility] CT Scan [address] [place] [address] 12/21/2025 12:30 PM EDT Office Visit Internal Medicine - [address] [address] Lamar Fritz MD [address] [place] [address] documented as of this encounter Procedures Procedure Name Priority Date/Time Associated Diagnosis Comments PROTHROMBIN TIME WITH INR Routine 09/20/2024 7:20 AM EST 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 coli) as the cause of diseases classified elsewhere COMPREHENSIVE METABOLIC PANEL Routine 09/20/2024 7:20 AM EST assisted (current) use of anticoagulants Unspecified Escherichia coli (E. coli) as the cause of diseases classified elsewhere documented in this encounter Results * (ABNORMAL) Prothrombin time with INR (09/20/2024 7:20 AM EST) Protime 17.7(H) 10.6 - 13.9 sec LAB COAGULATION METHOD 09/20/2024 11:50 AM EST [facility] INR 1.4 LAB COAGULATION METHOD 09/20/2024 11:50 AM EST [facility] Blood Venous blood specimen / Unknown Venipuncture / Unknown 09/20/2024 7:20 AM EST 09/20/2024 10:54 AM EST Bernadine Florez MD LAB BLOOD ORDERABLES Final Resul t [facility] [address] [place] [address], * (ABNORMAL) Comprehensive metabolic panel (09/20/2024 7:20 AM EST) Sodium 136 133 - 145 mmol/L LAB CHEMISTRY METHOD 09/20/2024 12:18 PM [facility] Potassium 3.9 3.5 - 5.5 mmol/L LAB CHEMISTRY METHOD 09/20/2024 12:18 PM [facility] Chloride 101 96 - 110 mmol/L LAB CHEMISTRY METHOD 09/20/2024 12:18 PM [facility] CO2 25 21 - 32 mmol/L LAB CHEMISTRY METHOD 09/20/2024 12:18 PM [facility] Anion Gap 10 3 - 11 LAB CHEMISTRY METHOD 09/20/2024 12:18 PM [facility] Glucose 99 70 - 100 mg/dL LAB CHEMISTRY METHOD 09/20/2024 12:18 PM [facility] BUN 20 5 - 25 mg/dL LAB CHEMISTRY METHOD 09/20/2024 12:18 PM [facility] Creatinine 0.81 0.70 - 1.30 mg/dL LAB CHEMISTRY METHOD 09/20/2024 12:18 PM [facility] eGFR 93 >=60 mL/min/1. 73m2 LAB CHEMISTRY METHOD 09/20/2024 12:18 PM [facility] Comment:Calculation based on the Chronic Kidney Disease Epidemiology Collaboration (CKD-EPI) equation refit without adjustment for race. BUN/Creatinine Ratio 24.7 LAB CHEMISTRY METHOD 09/20/2024 12:18 PM [facility] Calcium 9.1 8.5 - 10.5 mg/dL LAB CHEMISTRY METHOD 09/20/2024 12:18 PM [facility] AST (SGOT) 32 10 - 42 unit/L LAB CHEMISTRY METHOD 09/20/2024 12:18 PM [facility] ALT (SGPT) 28 10 - 60 unit/L LAB CHEMISTRY METHOD 09/20/2024 12:18 PM [facility] Alkaline Phosphatase 426(H) 42 - 121 unit/L LAB CHEMISTRY METHOD 09/20/2024 12:18 PM [facility] Total Protein 7.1 6.0 - 8.0 g/dL LAB CHEMISTRY METHOD 09/20/2024 12:18 PM [facility] Albumin 3.2 3.2 - 5.0 g/dL LAB CHEMISTRY METHOD 09/20/2024 12:18 PM [facility] Total Bilirubin 0.8 0.0 - 1.4 mg/dL LAB CHEMISTRY METHOD 09/20/2024 12:18 PM [facility] Blood Venous blood specimen / Unknown Venipuncture / Unknown 09/20/2024 7:20 AM EST 09/20/2024 10:54 AM EST us Bernadine Florez MD LAB BLOOD ORDERABLES Final Resul t [facility] [address] [place] [address], * (ABNORMAL) Complete blood count (09/20/2024 7:20 AM EST) WBC 8.1 4.8 - 10.8 K/mcL LAB HEMETOLOGY METHOD 09/20/2024 11:50 AM [facility] RBC 4.00(L) 4.50 - 5.50 M/mcL LAB HEMETOLOGY METHOD 09/20/2024 11:50 AM [facility] Hemoglobin 11.4(L) 13.5 - 17.5 g/dL LAB HEMETOLOGY METHOD 09/20/2024 11:50 AM [facility] Hematocrit 36.6(L) 42.0 - 54.0 % LAB HEMETOLOGY METHOD 09/20/2024 11:50 AM [facility] MCV 91.3 79.0 - 98.0 FL LAB HEMETOLOGY METHOD 09/20/2024 11:50 AM [facility] MCH 28.4 27.0 - 32.0 pcg LAB HEMETOLOGY METHOD 09/20/2024 11:50 AM [facility] MCHC 31.1(L) 32.0 - 37.0 g/dL LAB HEMETOLOGY METHOD 09/20/2024 11:50 AM [facility] RDW 14.5 11.0 - 15.0 % LAB HEMETOLOGY METHOD 09/20/2024 11:50 AM [facility] Platelets 263 130 - 400 K/mcL LAB HEMETOLOGY METHOD 09/20/2024 11:50 AM [facility] MPV 10.2 7.0 - 11.0 FL LAB HEMETOLOGY METHOD 09/20/2024 11:50 AM [facility] NRBC 0.0 <1.0 % LAB HEMETOLOGY METHOD 09/20/2024 11:50 AM [facility] NRBC Absolute 0.00 <0.10 K/mcL LAB HEMETOLOGY METHOD 09/20/2024 11:50 AM [facility] Blood Venous blood specimen / Unknown Venipuncture / Unknown 09/20/2024 7:20 AM EST 09/20/2024 10:54 AM EST Bernadine Florez MD LAB BLOOD ORDERABLES Final Resul t [facility] [place] [facility] [address] [place] [address], documented in this encounter Visit Diagnoses Diagnosis assisted (current) use of anticoagulants Long-term (current) use of anticoagulants Unspecified Escherichia coli (E. coli) as the cause of diseases classified elsewhere documented in this encounter Additional Health Concerns Infection Onset Date Last Indicated Resolved Time Tuberculosis Rule-Out 01/12/2025 01/12/20252024 7:05 PM EDT documented as of this encounter Care Teams Police Lieutenant Patrol Relationship Specialty Start Date End Date Lamar Fritz MD [address] [facility] [place], [place] PCP - General Internal Medicine 06/03/25 documented as of this encounter
--- OUTSIDE RECORDS SUMMARY | 2025-06-22 13:19 | XMS_ITS | Encounter Summary ---
Author Organization [facility] Address [address] [place] [address] Care Team Providers Care Differential Tester Name Role Phone Lamar Fritz MD Primary Care Provider [phone] Encounter Details Date Type Department Care Team (Late st Contact Info) Description 10/23/2024 Lab Requisition [facility] - Main Lab 299 [facility] [place] [address] Bernadine Florez MD [address] [place] [address] Unspecified atrial fibrillation (CMS/HCC V24, CMS/HCC V28) [...] PM EST Clinical Support [facility]in Clinic - [address] [address] 08/05/2025 1:00 PM EST Appointment [facility] CT Scan [address] [place] [address] 12/21/2025 12:30 PM EDT Office Visit Internal Medicine - [address] [phone] Lamar Fritz MD [address] [place] [address] documented as of this encounter Procedures Procedure Name Priority Date/Time Associated Diagnosis Comments PROTHROMBIN TIME WITH INR Routine 10/25/2024 6:52 AM EDT Unspecified atrial fibrillation (CMS/HCC) documented in this encounter Results * (ABNORMAL) Prothrombin time with INR (10/25/2024 6:52 AM EDT) Protime 27.0(H) 10.6 - 13.9 sec LAB COAGULATION METHOD 10/25/2024 9:52 AM EDT [facility] INR 2.2 LAB COAGULATION METHOD 10/25/2024 9:52 AM EDT [facility] Blood Venous blood specimen / Unknown Venipuncture / Unknown 10/25/2024 6:52 AM EDT 10/25/2024 9:17 AM EDT us Bernadine Florez MD LAB BLOOD ORDERABLES Final Resul t [facility] [address] [place] [address], documented in this encounter Visit Diagnoses Diagnosis Unspecified atrial fibrillation (CMS/[facility] V24, CMS/[facility] V28) documented in this encounter Additional Health Concerns Infection Onset Date Last Indicated Resolved Time Tuberculosis Rule-Out 01/12/2025 01/12/20252024 7:05 PM EDT documented as of this encounter Care Teams Differential Tester Relationship Specialty Start Date End Date Lamar Fritz MD [address] [place] [address] PCP - General Internal Medicine 06/03/25 documented as of this encounter
--- OUTSIDE RECORDS SUMMARY | 2025-06-22 13:19 | XMS_ITS | Clinical Summary ---
Author Organization [facility] Prior to 12/18/[address] [place] [address] Care Team Providers Care Provider Relations Rep Name Role Phone Caterina Sena MD Primary [...] age to complete this topic Care Teams Provider Relations Rep Relationship Specialty Start Date End Date Caterina Sena MD PCP - General Family Medicine 04/07/23
--- OUTSIDE RECORDS SUMMARY | 2025-06-22 13:19 | XMS_ITS | Encounter Summary ---
Author Organization [facility] Address [address] [place] [address] Care Team Providers Care Radiation Oncologist Name Role Phone Lamar Fritz MD Primary Care Provider [phone] Encounter Details Date Type Department Care Team (Late st Contact Info) Description 09/21/2024 Lab Requisition [facility] - Main Lab [address] [place] [address] Mukul Connolly PA [facility] [address] [place] [address] Unspecified atrial fibrillation (CMS/HCC V24, CMS/HCC V28) [...] EST Clinical Support [facility] - [address] [phone] 08/05/2025 1:00 PM EST Appointment [facility] CT Scan [address] [place] [id number] 12/21/2025 12:30 PM EDT Office Visit Internal Medicine - [address] [phone] Lamar Fritz MD [address] [place] [address] documented as of this encounter Procedures Procedure Name Priority Date/Time Associated Diagnosis Comments PROTHROMBIN TIME WITH INR Routine 09/21/2024 8:38 AM EST Unspecified atrial fibrillation (CMS/HCC) documented in this encounter Results * (ABNORMAL) Prothrombin time with INR (09/21/2024 8:38 AM EST) Protime 15.8(H) 10.6 - 13.9 sec LAB COAGULATION METHOD 09/21/2024 11:25 AM EST [facility] INR 1.3 LAB COAGULATION METHOD 09/21/2024 11:25 AM EST [facility] Blood Venous blood specimen / Unknown Venipuncture / Unknown 09/21/2024 8:38 AM EST 09/21/2024 10:37 AM EST Mukul TREJO LAB BLOOD ORDERABLES Belinda l Result [facility] [address] [place] [address], documented in this encounter Visit Diagnoses Diagnosis Unspecified atrial fibrillation (CMS/HCC V24, CMS/HCC V28) documented in this encounter Additional Health Concerns Infection Onset Date Last Indicated Resolved Time Tuberculosis Rule-Out 01/12/2025 01/12/20252024 7:05 PM EDT documented as of this encounter Care Teams Radiation Oncologist Relationship Specialty Start Date End Date Lamar Fritz MD [address] [facility] [place] [address] PCP - General Internal Medicine 06/03/25 documented as of this encounter
--- OUTSIDE RECORDS SUMMARY | 2025-06-22 13:20 | XMS_ITS | Clinical Summary ---
Author Organization [place] [address] [facility] Building Address [address] [place] [phone] Phone Care Team Providers Care Youth Agent Name Role Phone Lamar Fritz MD Primary Care Provider [phone] Allergies No known active allergies Medications docusate sodium (COLACE) 100 mg capsule Take 1 capsule (100 mg total) by mouth 2 (two) times a day. Active inhaler, assist devices (E-Z SPACER MISC) 1 Units by Does not apply route as needed (for inhaler). 07/02/20 23 Active Bifidobacterium infantis (Align) 4 mg capsule 06/27/20 23 Active ipratropium-alb uteroL (DUONEB) 0.5-2.5 mg/3 mL nebulizer solutionIndicat ions:chronic obstructive pulmonary disease with bronchospasms,r efractory symptoms with inhalers Take 3 mL by nebulization every 6 (six) hours. 360 mL 3 01/26/20 25 2025 Active bisacodyL (Dulcolax, bisacodyl,) 10 mg suppository Insert 1 suppository (10 mg total) into the rectum if needed. 10/03/19 Active polyethylene glycol 3350 (MIRALAX ORAL) Take 17 g by mouth if needed. 10/06/19 Active traZODone (DESYREL) 50 mg tablet Take [...] each day. 1 each 3 02/11/20 25 2025 Active warfarin (COUMADIN) 5 mg tablet Take 1 Tablet by mouth . Follow coumadin clinic instructions. May cause heavy bleeding. Take at same time every day. Do not change dietary habits. 90 tablet 04/11/20 25 Active metoprolol tartrate (LOPRESSOR) 25 mg tabletIndicatio ns:Primary hypertension Take 1 tablet (25 mg total) by mouth 2 (two) times a day. 180 each 04/11/20 25 Active amLODIPine-aric zepril (LOTREL) 5-20 mg per capsuleIndicati ons:Primary hypertension Take 1 capsule by mouth 1 (one) time each day. 90 each 04/11/20 25 Active buPROPion SR (WELLBUTRIN SR) 150 mg 12 hr tabletIndicatio ns:Depression, unspecified depression type Take 1 tablet (150 mg total) by mouth 2 (two) times a day. 180 each 04/11/20 25 Active enoxaparin (LOVENOX) 80 mg/0.8 mL syringe Inject 0.7 mL (70 mg total) under the skin every 12 (twelve) hours. To discard 10 mg 10 each 1 05/04/20 25 2024 Discontinued Active Problems Problem Noted Date Diagnosed Date [...] I explained how the size, shape, and price changer time affect her level of suspicion [...] that I will have him see his area manager for a risk assessment as well as a technology training associate to give recommendations around anticoagulation around surgery. He certainly will have to stop his Coumadin 5 days prior to operation but the question of a bridge or what to bridge with. Aortic root dilatation (CMS/HCC V24) 01/24/2023 Coronary artery disease invo lving takotna coronary artery of takotna heart without angina pectoris 06/20/2022 Mixed hyperlipidemia 06/20/2022 Primary hypertension 04/23/2022 Coronary artery disease due to calcified coronar y lesion 03/18/2022 Lab test positive for detection of COVID-19 viru s 07/11/2021 Overview (05/31/2024): 12/14/21, [facility] 07/03/21 Thoracic aortic aneurysm ([facility] V24) 1 Elevated LFTs 11/27/2020 IBS (irritable bowel syndrome) 02/03/2020 Overview (05/31/2024): Diarrhea predominant Chronic diarrhea 12/23/2019 Fatty liver 07/09/2019 Nephrolithiasis 07/09/2019 Diplopia 06/26/2017 Overview (05/31/2024): 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, left 04/24/2017 Adrenal incidentaloma ([facility] V24) 02/03/2017 Hematuria 02/03/2017 Overview (05/31/2024): Did not schedule urology appt 06/06 COPD (chronic obstructive pu lmonary disease) ([facility] V24, [facility] V28) 02/16/2016 Depression 08/18/2015 Overview (05/31/2024): [facility] Hyperlipidemia with target LDL less than 130 10/2012 Benign neoplasm of colon 05/13/2011 Overview (05/31/2024): 10 mm polyp 2002. Neg CN 2004. Small polyps x 2 at CN 05/13/2011: Pathology report: Tubular adenomas x 2. 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 Resolved Problems Problem Noted Date Diagnosed Date Resolved Date SBO (small bowel obstruction ) ([facility] V24, [facility] V28) 08/29/2024 09/16/2024 Encounters Date Type Department Care Team Description 06/15/2025 1:45 PM EST Clinical Support [facility] [address] [place] [phone] Deep vein thrombosis (DVT) of distal vein of left lower extremity, unspecified chronicity (CMS/HCC V24, CMS/HCC V28) (Primary Dx); Factor V Leiden mutation ([facility]/HCC V24) 06/06/2025 Results Follow-Up Internal Medicine [address] [place] [phone] Aide Linares NP 06/03/2025 3:30 PM EST Lab Draw Station [address] [place] Hyperlipidemia with target LDL less than 130; Primary hypertension 06/03/2025 3:00 PM EST Clinical Support Internal [address] [place] [phone] 06/03/2025 2:45 PM EST Office Visit Internal Medicine [address] [place] [phone] Aide Linares NP Chronic obstructive pulmonary disease, unspecified COPD type (CMS/HCC V24, CMS/HCC V28) (Primary Dx); Coronary artery disease involving takotna coronary artery of takotna heart without angina pectoris; Depression, unspecified depression type; Factor V Leiden mutation ([facility]/HCC V24); Deep vein thrombosis (DVT) of distal vein of left lower extremity, unspecified chronicity (CMS/HCC V24, CMS/HCC V28); Heartburn; Hyperlipidemia with target LDL less than 130; Primary hypertension 06/02/2025 1:45 PM EST Clinical Support Coumadin [address] [place] [phone] Deep vein thrombosis (DVT) of distal vein of left lower extremity, unspecified chronicity (CMS/HCC V24, CMS/HCC V28) (Primary Dx); Factor V Leiden mutation ([facility]/HCC V24) 05/25/2025 Telephone Internal Medicine [address] [place] [phone] Le Recinos DO 05/23/2025 1:30 PM EST Clinical Support Coumadin [address] [phone] Deep vein thrombosis (DVT) of distal vein of left lower extremity, unspecified chronicity (CMS/HCC V24, CMS/HCC V28) (Primary Dx); Factor V Leiden mutation (CMS/HCC V24) 05/19/2025 12:05 PM EDT Lab Draw [address] Deep vein thrombosis (DVT) of distal vein of left lower extremity, unspecified chronicity (CMS/HCC V24, CMS/HCC V28); Factor V Leiden mutation (CMS/HCC V24) 05/19/2025 Anticoagulation - Warfarin Visit [address] [phone] Angus Fernandez MD Deep vein thrombosis (DVT) of distal vein of left lower extremity, unspecified chronicity (CMS/HCC V24, CMS/HCC V28) (Primary Dx); Factor V Leiden mutation (CMS/HCC V24) 05/19/[address] [phone] [place], RN 05/19/2025 Anticoagulation - Warfarin Visit Coumadin [address] [phone] Le Recinos, Deep vein thrombosis (DVT) of distal vein of left lower extremity, unspecified chronicity (CMS/HCC V24, CMS/HCC V28) (Primary Dx); Factor V Leiden mutation (CMS/HCC V24) 05/13/2025 Anticoagulation - Warfarin Visit Coumadin Clinic [address] [phone] Divina Lozoya LPN Deep vein thrombosis (DVT) of distal vein of left lower extremity, unspecified chronicity (CMS/HCC V24, CMS/HCC V28) (Primary Dx); Factor V Leiden mutation ([facility]/HCC V24) 05/12/2025 Telephone Internal Medicine - [address] [phone] Le Recinos DO 04/29/2025 Telephone Coumadin Clinic - [address] [phone] Divina Lozoya LPN 04/28/2025 2:30 PM EDT Anticoagulation - Warfarin Visit Coumadin Clinic - [address] [phone] Deep vein thrombosis (DVT) of distal vein of left lower extremity, unspecified chronicity (CMS/HCC V24, CMS/HCC V28) (Primary Dx); Factor V Leiden mutation ([facility] V24) 04/21/2025 1:45 PM EDT Anticoagulation - Warfarin Visit Coumadin Clinic - [address] [phone] Deep vein thrombosis (DVT) of distal vein of left lower extremity, unspecified chronicity (CMS/HCC V24, CMS/HCC V28) (Primary Dx); Factor V Leiden mutation ([facility]/HCC V24) 04/14/2025 1:30 PM EDT Anticoagulation - Warfarin Visit Coumadin [facility] - [address] [phone] Deep vein thrombosis (DVT) of distal vein of left lower extremity, unspecified chronicity ([facility]/HCC V24, CMS/HCC V28) (Primary Dx); Factor V Leiden mutation ([facility] V24) 04/12/2025 2:45 PM EDT Office Visit Orthopedic Surgery - [place] [address] [place] [phone] Mello Lewis MD Calcific tendinitis of left shoulder (Primary Dx) 04/11/2025 Anticoagulation - Warfarin Visit Coumadin Clinic [address] [phone] Kiara Anderson LPN Deep vein thrombosis (DVT) of distal vein of left lower extremity, unspecified chronicity (CMS/HCC V24, CMS/HCC V28) (Primary Dx); Factor V Leiden mutation (CMS/HCC V24) 04/08/2025 Anticoagulation - Warfarin Visit Coumadin [facility] [address] [place] [phone] Divina Lozoya LPN Deep vein thrombosis (DVT) of distal vein of left lower extremity, unspecified chronicity (CMS/HCC V24, CMS/HCC V28) (Primary Dx); Factor V Leiden mutation (CMS/HCC V24) 04/08/[address] [facility] [address] [place] [phone] Divina Lozoya LPN 04/04/2025 Anticoagulation - Warfarin Visit Coumadin [address] [phone] Kiara Anderson LPN Deep vein thrombosis (DVT) of distal vein of left lower extremity, unspecified chronicity (CMS/HCC V24, CMS/HCC V28) (Primary Dx); Factor V Leiden mutation ([facility]/HCC V24) 03/31/2025 1:00 PM EDT Anticoagulation - Warfarin Visit Coumadin [address] [phone] Deep vein thrombosis (DVT) of distal vein of left lower extremity, unspecified chronicity (CMS/HCC V24, CMS/HCC V28) (Primary Dx); Factor V Leiden mutation ([facility]/HCC V24) 03/25/2025 [facility] [address] [phone] Kiara Anderson LPN Deep vein thrombosis (DVT) of distal vein of left lower extremity, unspecified chronicity (CMS/HCC V24, CMS/HCC V28) (Primary Dx); Factor V Leiden mutation ([facility]/HCC V24) from Last 3 Months Immunizations Immunization Administration Dates Next Due Influenza trivalent, 0.5mL (Fluad) 65yo and olde r 07/05/2021 Pneumococcal conjugate 20 va lent (Prevnar 20, PCV 20) 2mo and older 11/05/2022 Pneumococcal polysaccharide 23 valent (Pneumovax 23) 2yo and older 2010 Tdap Tetanus diptheria acell ular pertussis (Boostrix; Adacel) 7yo and older 04/04/2014,12/09/2008 Surgical History Surgery Date Site/Laterality Comments OTHER SURGICAL HISTORY PROCEDURE: ---- OTHER ----; [...] transverse colon polyps x2: Tubular adenoma x2. OTHER SURGICAL HISTORY 04/30/2023 Left PROCEDURE: AR THORACOSCOPY W/SEGMENTECTOMY; COMMENT: MARCIAL wedge w/ segmentectomy [...] istory of dysplastic nevus; COMMENT: Dysplastic nevus 08 back (mild atypia) History of squamous cell [...] COMMENT: Actinic keratosis 03/08 forehead 03/28 left mormonism COPD (chronic obstructive pu lmonary disease) ([facility] V24, [facility] V28) DX:COPD (chronic o bstructive pulmonary disease) ([facility]) Lung cancer ([facility] V24, [facility] V28) status post resection Hypertension Hyperlipidemia Factor V Leiden ([facility] V24) History of DVT (deep vein thrombosis) [...] care for your loved ones. For example, director of early childhood or elderly care for an older adult? [...] Sign Reading Time Taken Comments Blood Pressure 128/70 06/03/2025 2:03 PM EST Pulse 90 06/03/2025 2:03 PM EST Temperature 36.8 C (98.2 F) 02/02/2025 12:55 PM EDT Respiratory Rate 18 02/02/2025 12:55 PM EDT Oxygen Saturation 97% 02/02/2025 12:55 PM EDT Inhaled Oxygen Concentration - - Weight 73.2 kg (161 lb 6.4 oz) 06/03/2025 2:03 P M EST Height 180.3 cm (5' 11 ) 02/10/2025 2:04 PM EDT Body Mass Index 22.51 02/10/2025 2:04 PM EDT Plan of Treatment Upcoming Encounters Date Type Department Care Team (Late st Contact Info) Description 07/06/2025 1:45 PM EST Clinical Support Coumadin Clinic - [facility] [address] [place] [phone] 08/05/2025 1:00 PM EST Appointment [facility] CT Scan [address] [place] [phone] 12/21/2025 12:30 PM EDT Office Visit Internal Medicine - [address] [phone] Lamar Fritz MD [address] [place], [place] Health Maintenance Due Date Last Done Comments COVID-19 Vaccine (#1) 1955 Zoster Vaccines (1 of 2) 1969 RSV Immunization Adult Patients (1 - Risk 50-74 years 1-dose series) 2000 Lung Cancer Screening (Low Dose CT) 03/17/2024 03/17/2023, 03/15/2022, 03/12/2021 DTaP,Tdap,and Td Vaccines (3 - Td or Tdap) 04/04/2024 04/04/2014, 12/09/2008 Influenza Vaccine (#1) 2025 07/05/2021 Colorectal Cancer Screening: Colonoscopy 05/01/2025 05/01/2020 Falls Risk Assessment 06/03/2026 06/03/2025, 025 Hypertension/CHF/CAD Annual BMP Blood Test 06/03/2026 06/03/2025, 12/20/2024, 10/11/2024, Additional history exists Medicare Annual Wellness Visit 06/03/2026 06/03/2025 Social Influencers of Health Screening 06/03/2026 06/03/2025 Cholesterol Screening (Lipid Panel) 06/03/2030 06/03/2025, 07/28/2024, 12/03/2022 Hepatitis C Screening Completed 01/25/2013 Abdominal Aortic Aneurysm (AAA) Screen Completed 05/30/2020 Pneumococcal Vaccine: 50+ Years Completed 11/05/2022, 2010 Depression Screening Completed 06/03/2025 HIB Vaccines Aged Out No longer eligi [...] this topic Medical Devices Implanted Type Area Charge Aide Device Identifier Shelf Expiration Date Model / Serial / Lot Tray Rad Cath 1lum Poly 4f - [id number] Implanted:Qty: 1 on 09/08/2024 by Savanah Go MD at [facility] Central/Chloe pheral Catheters and Ports Right: Arm BD VASCULAR ACCESS DEVICES FKA BARD ACCESS [id number] 06/19/2026 [id number] / / [id number] Marker Cobra Superlock - Sn/A - [id number] Implanted:Qty: 1 on 01/12/2025 by Collette Avalos MD at [facility] Imaging Implants Left: Lung [employer] SUPERD[employer] [id number] 11/01/2028 [id number] / N/A / [id number] Description:Left lower lobe Procedures Procedure Name Priority Date/Time Associated Diagnosis Comments POC PROTIME INR BLOOD Routine 06/15/2025 1:45 PM EST Deep vein thrombosis (DVT) of distal vein of left lower extremity, unspecified chronicity (CMS/HCC V24, CMS/HCC V28) Factor V Leiden mutation (CMS/HCC V24) BASIC METABOLIC PANEL Routine 06/03/2025 3:26 PM EST Primary hypertension ASPARTATE AMINOTRANSFERASE Routine 06/03/2025 3:26 PM EST Hyperlipidemia with target LDL less than 130 ALANINE AMINOTRANSFERASE Routine 025 3:26 PM EST Hyperlipidemia with target LDL less than 130 LIPID PANEL WITH REFLEX TO DIRECT LDL Routine 06/03/2025 3:26 PM EST Hyperlipidemia with target LDL less than 130 POC PROTIME INR BLOOD Routine 06/02/2025 1:46 PM EST Deep vein thrombosis (DVT) of distal vein of left lower extremity, unspecified chronicity (CMS/HCC V24, CMS/HCC V28) Factor V Leiden mutation (CMS/HCC V24) POC PROTIME INR BLOOD Routine 05/23/2025 1:12 PM EST Deep vein thrombosis (DVT) of distal vein of left lower extremity, unspecified chronicity (CMS/HCC V24, CMS/HCC V28) Factor V Leiden mutation (CMS/HCC V24) PROTHROMBIN TIME WITH INR Routine 05/19/2025 12:06 PM EDT Deep vein thrombosis (DVT) of distal vein of left lower extremity, unspecified chronicity (CMS/HCC V24, CMS/HCC V28) Factor V Leiden mutation (CMS/HCC V24) PROTHROMBIN TIME WITH INR Routine 05/19/2025 PROTHROMBIN TIME WITH INR Routine 05/13/2025 11:21 [...] V28) Factor V Leiden mutation (CMS/HCC V24) AR ARTHROCENTESIS/ASPIRATIO N/INJECTION MAJOR JOINT/BURSA W/O U/S GUIDANCE Routine 04/12/2025 [...] EDT Factor V Leiden mutation (CMS/HCC V24) CT LUNG SCREENING LOW DOSE Routine 03/17/2023 3:36 PM EDT Personal history of nicotine dependence ABDOMINAL AORTIC ANEURYSM SCRREN Routine 05/30/2020 COLONOSCOPY Routine 05/01/2020 HEPATITIS C SCREENING Routine 01/25/2013 from Last 3 Months or Most Recently Relevant to Health Maintenance Results * POC Protime INR Blood (06/15/2025 1:45 PM EST) Only the most recent of7 resultswithin the time period is included. Lot Number INR POC 2.4 Prothrombin Time POC Exp Date Blood 06/15/2025 1:45 PM EST Lamar Fritz MD POINT OF CARE TEST ENTER/EDIT ORDERABLES Edited Result - Final * (ABNORMAL) Lipid panel with reflex to direct LDL (06/03/2025 3:26 PM EST) Cholesterol 150 0 - 200 mg/dL LAB CHEMISTRY METHOD 06/03/2025 7:28 PM [facility] Triglycerides 185(H) 0 - 150 mg/dL LAB CHEMISTRY METHOD 06/03/2025 7:28 PM EST [facility] HDL 50 >=40 mg/dL LAB CHEMISTRY METHOD 06/03/2025 7:28 PM [facility] LDL Calculated 63 0 - 100 mg/dL LAB CHEMISTRY METHOD 06/03/2025 7:28 PM [facility] Comment:Estimated LDL Calcul ated using equation: Total cholesterol - HDL cholesterol - (Triglycerides/5) VLDL Cholesterol Herm[place] 37 mg/dL LAB CHEMISTRY METHOD 06/03/2025 7:28 PM EST [facility] Non HDL Chol. (LDL+VLDL) 100 <145 mg/dL LAB CHEMISTRY METHOD 06/03/2025 7:28 PM EST [facility] Chol/HDL Ratio 3.0 0.0 - 4.4 LAB CHEMISTRY METHOD 06/03/2025 7:28 PM EST [facility] Blood Venous blood specimen / Unknown Venipuncture / Unknown 06/03/2025 3:26 PM EST 06/03/2025 3:26 PM EST Aide Linares GAUGER CHIEF LAB BLOOD ORDERABLES Final Resu lt Performing Organization Address City/[facility]/ZIP Co de Phone Number [facility] [address] [place] [address], [place] [phone] * Alanine aminotransferase (06/03/2025 3:26 PM EST) ALT (SGPT) 13 10 - 60 unit/L LAB CHEMISTRY METHOD 06/03/2025 7:23 PM EST [facility] Blood Venous blood specimen / Unknown Venipuncture / Unknown 06/03/2025 3:26 PM EST 06/03/2025 3:26 PM EST Aide Linares GAUGER CHIEF LAB BLOOD ORDERABLES Final Resu lt [facility] [address] [place] [address], [place] [phone] * Aspartate aminotransferase (06/03/2025 3:26 PM EST) AST (SGOT) 11 10 - 42 unit/L LAB CHEMISTRY METHOD 06/03/2025 7:28 PM EST [facility] Blood Venous blood specimen / Unknown Venipuncture / Unknown 06/03/2025 3:26 PM EST 06/03/2025 3:26 PM EST us Aide Linares NP LAB BLOOD ORDERABLES Final Resu lt [facility] [address] [place] [address], [place] [phone] * Basic metabolic panel (06/03/2025 3:26 PM EST) Sodium 138 133 - 145 mmol/L LAB CHEMISTRY METHOD 06/03/2025 7:28 PM [facility] Potassium 4.3 3.5 - 5.5 mmol/L LAB CHEMISTRY METHOD 06/03/2025 7:28 PM [facility] Chloride 103 96 - 110 mmol/L LAB CHEMISTRY METHOD 06/03/2025 7:28 PM [facility] CO2 26 21 - 32 mmol/L LAB CHEMISTRY METHOD 06/03/2025 7:28 PM [facility] Anion Gap 9 3 - 11 LAB CHEMISTRY METHOD 06/03/2025 7:28 PM [facility] Glucose 97 70 - 100 mg/dL LAB CHEMISTRY METHOD 06/03/2025 7:28 PM [facility] BUN 13 5 - 25 mg/dL LAB CHEMISTRY METHOD 06/03/2025 7:28 PM [facility] Creatinine 1.05 0.70 - 1.30 mg/dL LAB CHEMISTRY METHOD 06/03/2025 7:28 PM [facility] eGFR 74 >=60 mL/min/1. 73m2 LAB CHEMISTRY METHOD 06/03/2025 7:28 PM [facility] Comment:Calculation based on the Chronic Kidney Disease Epidemiology Collaboration (CKD-EPI) equation refit without adjustment for race. BUN/Creatinine Ratio 12.4 LAB CHEMISTRY METHOD 06/03/2025 7:28 PM [facility] Calcium 9.7 8.5 - 10.5 mg/dL LAB CHEMISTRY METHOD 06/03/2025 7:28 PM EST [facility] Blood Venous blood specimen / Unknown Venipuncture / Unknown 06/03/2025 3:26 PM EST 06/03/2025 3:26 PM EST Aide Linares GAUGER CHIEF LAB BLOOD ORDERABLES Final Resu lt Performing Organization Address [facility] Co de Phone Number [facility] [address] [place] [address], [place] [phone] * (ABNORMAL) Prothrombin time with INR (05/19/2025 12:06 PM EDT) Only the most recent of7 resultswithin the time period is included. Protime 16.8(H) 10.6 - 13.9 sec LAB COAGULATION METHOD 05/19/2025 2:11 PM EDT [facility] INR 1.4 LAB COAGULATION METHOD 05/19/2025 2:11 PM EDT [facility] Blood Venous blood specimen / Unknown Venipuncture / Unknown 05/19/2025 12:06 PM EDT 05/19/2025 12:06 PM EDT Le Recinos DO LAB BLOOD ORDERABLES Final Res ult Performing Organization Address City/[facility]/ZIP Co de Phone Number [facility] [address] [place] [address], [place] [phone] * AR ARTHROCENTESIS/ASPIRATION/INJECTION MAJOR JOINT/BURSA W/O U/S GUIDANCE (04/12/2025 [...] IN CLINIC/BEDSIDE ORDERABLES Fin al Result * CT LUNG SCREENING LOW DOSE (03/17/2023 3:36 PM EDT) Anatomical Region Laterality Modality Computed Tomogra phy 03/17/2023 1:40 PM EDT Narrative 03/17/2023 3:36 PM EDT [facility] Diagnostic Imaging Department [address] [place], [place] [id number] Patient: JOYYURIY /Age/Sex: 1950 - 72 - M Unit#: [id number] [facility]Ordering Site[facility] [place] Physician[place] MARILUZ NGO MD CT Lung [...] [facility] Diagnostic Imaging Department [address] [place] [address] Patient: YURIY JOY Lala /Age/Sex: 1950 - 72 - M Unit#: [id number] Location/Status: SPDICATLS/REG CLI Mnemonic/Ordering Site: [facility] Ordering Physician: [...] Documents on File Type Date Recorded Patient Kindergarten Aide Expl anation Health Care Decision (hx) 06/11/2023 [...] Relationship Healthcare Agent Relationship Communication Britni Joy [facility] Health Care Agent Aide Gamez Daughter Health Care Agent Care Teams Youth Agent Relationship Specialty Start Date End Date Lamar Fritz MD [address] [place] [phone] PCP - General Internal Medicine 06/03/25
--- OUTSIDE RECORDS SUMMARY | 2025-06-22 13:20 | XMS_ITS ---
Author Organization [place] [address] [facility] Address [address] [place] [phone] Phone Care Team Providers Care Informatics Specialist Name Role Phone Lamar Fritz MD Primary Care Provider [phone] Active Problems Problem Noted Date Diagnosed Date [...] how the size, shape, and foreign exchange clerk time affect her level of suspicion [...] that I will have him see his assistant professor of marine biology for a risk assessment as well as a band tier to give recommendations around anticoagulation around surgery. He certainly will have to stop his Coumadin 5 days prior to operation but the question of a bridge or what to bridge with. Aortic root dilatation (CMS/HCC V24) 01/24/2023 Coronary artery disease invo lving [place] coronary artery of [place] heart without angina pectoris 06/20/2022 Mixed hyperlipidemia 06/20/2022 Primary hypertension 04/23/2022 Coronary artery disease due to calcified coronar y lesion 03/18/2022 Lab test positive for detection of COVID-19 viru s 07/11/2021 Overview (05/31/2024): 07/03/21, 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 Neg CN 2003. Small polyps x 2 at CN 05/13/2011: Pathology report: Tubular adenomas x 2. 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
--- OUTSIDE RECORDS SUMMARY | 2025-06-22 13:20 | XMS_ITS | Encounter Summary ---
Author Organization [facility] Address [address] [place] [address] Care Team Providers Care Community Health Nursing Director Name Role Phone Lamar Fritz MD Primary Care Provider [phone] Encounter Details Date Type Department Care Team (Late st Contact Info) Description 10/01/2024 Lab Requisition [facility] - Main Lab 299 [facility] [place] [address] Bernadine Florez MD [address] [place] [address] Other malaise; Unspecified atrial fibrillation (CMS/HCC V24, [...] PM EST Clinical Support [facility] - [address] [address] 08/05/2025 1:00 PM EST Appointment [facility] CT Scan [address] [place] [address] 12/21/2025 12:30 PM EDT Office Visit Internal Medicine - [address] [phone] Lamar Fritz MD [address] [place] [phone] documented as of this encounter Visit Diagnoses Diagnosis Other malaise Unspecified atrial fibrillation (CMS/HCC V24, CMS/HCC V28) documented in this encounter Additional Health Concerns Infection Onset Date Last Indicated Resolved Time Tuberculosis Rule-Out 01/12/2025 01/12/20252024 7:05 PM EDT documented as of this encounter Care Teams Community Health Nursing Director Relationship Specialty Start Date End Date Lamar Fritz MD [address] [place] [phone] PCP - General Internal Medicine 06/03/25 documented as of this encounter
--- OUTSIDE RECORDS SUMMARY | 2025-06-22 13:20 | XMS_ITS | Encounter Summary ---
Author Organization [facility] Address [address] [place] [address] Care Team Providers Care Hydraulic Boom Operator Name Role Phone Lamar Fritz MD Primary Care Provider [phone] Encounter Details Date Type Department Care Team (Late st Contact Info) Description 10/06/2024 Lab Requisition [facility] - Main Lab 299 [facility] [place] [address] Bernadine Florez MD [address] [place] [address] Unspecified atrial fibrillation (CMS/HCC V24, CMS/HCC V28) [...] PM EST Clinical Support [facility] - [address] [address] 08/05/2025 1:00 PM EST Appointment [facility] CT Scan [address] [place] [address] 12/21/2025 12:30 PM EDT Office Visit Internal Medicine - [address] [phone] Lamar Fritz MD [address] [place] [address] documented as of this encounter Procedures Procedure Name Priority Date/Time Associated Diagnosis Comments PROTHROMBIN TIME WITH INR Routine 10/07/2024 6:15 AM EDT Unspecified atrial fibrillation (CMS/HCC) documented in this encounter Results * (ABNORMAL) Prothrombin time with INR (10/07/2024 6:15 AM EDT) Protime 43.1(H) 10.6 - 13.9 sec LAB COAGULATION METHOD 10/07/2024 10:22 AM EDT [facility] INR 3.5 LAB COAGULATION METHOD 10/07/2024 10:22 AM EDT [facility] Blood Venous blood specimen / Unknown Venipuncture / Unknown 10/07/2024 6:15 AM EDT 10/07/2024 8:47 AM EDT us Bernadine Florez MD LAB BLOOD ORDERABLES Final Resul t [facility] [address] [place] [address], documented in this encounter Visit Diagnoses Diagnosis Unspecified atrial fibrillation (CMS/[facility] V24, CMS/[facility] V28) documented in this encounter Additional Health Concerns Infection Onset Date Last Indicated Resolved Time Tuberculosis Rule-Out 01/12/2025 01/12/20252024 7:05 PM EDT documented as of this encounter Care Teams Hydraulic Boom Operator Relationship Specialty Start Date End Date Lamar Fritz MD [address] [place] [address] PCP - General Internal Medicine 06/03/25 documented as of this encounter
--- OUTSIDE RECORDS SUMMARY | 2025-06-22 13:20 | XMS_ITS | Encounter Summary ---
Author Organization [facility] Address [address] [place] [address] Care Team Providers Care Risk Management Professional Name Role Phone Lamar Fritz MD Primary Care Provider [phone] Encounter Details Date Type Department Care Team (Late st Contact Info) Description 10/17/2024 Lab Requisition [facility] - Main Lab 299 [facility] [address] Bernadine Florez MD [address] [address] Unspecified atrial fibrillation (CMS/HCC V24, CMS/HCC V28) [...] PM EST Clinical Support [facility] - [address] [phone] 08/05/2025 1:00 PM EST Appointment [facility] CT Scan [address] [place] [address] 12/21/2025 12:30 PM EDT Office Visit Internal Medicine - [address] [phone] Lamar Fritz MD [address] [place] [address] documented as of this encounter Procedures Procedure Name Priority Date/Time Associated Diagnosis Comments PROTHROMBIN TIME WITH INR Routine 10/18/2024 6:59 AM EDT Unspecified atrial fibrillation (CMS/HCC) documented in this encounter Results * (ABNORMAL) Prothrombin time with INR (10/18/2024 6:59 AM EDT) Protime 24.7(H) 10.6 - 13.9 sec LAB COAGULATION METHOD 10/18/2024 10:43 AM EDT [facility] INR 2.0 LAB COAGULATION METHOD 10/18/2024 10:43 AM EDT [facility] Blood Venous blood specimen / Unknown Venipuncture / Unknown 10/18/2024 6:59 AM EDT 10/18/2024 9:34 AM EDT us Bernadine Florez MD LAB BLOOD ORDERABLES Final Resul t [facility] [address] [place] [address], documented in this encounter Visit Diagnoses Diagnosis Unspecified atrial fibrillation (CMS/[facility] V24, CMS/[facility] V28) documented in this encounter Additional Health Concerns Infection Onset Date Last Indicated Resolved Time Tuberculosis Rule-Out 01/12/2025 01/12/20252024 7:05 PM EDT documented as of this encounter Care Teams Risk Management Professional Relationship Specialty Start Date End Date Lamar Fritz MD [address] [place] [address] PCP - General Internal Medicine 06/03/25 documented as of this encounter
--- OUTSIDE RECORDS SUMMARY | 2025-06-22 13:20 | XMS_ITS | Encounter Summary ---
Author Organization [facility] Address [address] [place] [address] Care Team Providers Care General I Farmworker Name Role Phone Lamar Fritz MD Primary Care Provider [phone] Encounter Details Date Type Department Care Team (Late st Contact Info) Description 10/13/[address] [facility] - Main Lab 299 [facility] [place] [address] Bernadine Florez MD [address] [place] [address] Unspecified atrial fibrillation (CMS/HCC V24, CMS/HCC V28) [...] PM EST Clinical Support [facility] - [address] [phone] 08/05/2025 1:00 PM EST Appointment [facility] CT Scan [address] [place] [address] 12/21/2025 12:30 PM EDT Office Visit Internal Medicine - [address] [phone] Lamar Fritz MD [address] [place] [address] documented as of this encounter Procedures Procedure Name Priority Date/Time Associated Diagnosis Comments PROTHROMBIN TIME WITH INR Routine 10/14/2024 9:47 AM EDT Unspecified atrial fibrillation (CMS/HCC) documented in this encounter Results * (ABNORMAL) Prothrombin time with INR (10/14/2024 9:47 AM EDT) Protime 17.7(H) 10.6 - 13.9 sec LAB COAGULATION METHOD 10/14/2024 11:09 AM EDT [facility] INR 1.4 LAB COAGULATION METHOD 10/14/2024 11:09 AM EDT [facility] Blood Venous blood specimen / Unknown Venipuncture / Unknown 10/14/2024 9:47 AM EDT 10/14/2024 10:59 AM EDT us Bernadine Florez MD LAB BLOOD ORDERABLES Final Resul t [facility] [address] [place] [address], documented in this encounter Visit Diagnoses Diagnosis Unspecified atrial fibrillation (CMS/[facility] V24, CMS/[facility] V28) documented in this encounter Additional Health Concerns Infection Onset Date Last Indicated Resolved Time Tuberculosis Rule-Out 01/12/2025 01/12/20252024 7:05 PM EDT documented as of this encounter Care Teams General I Farmworker Relationship Specialty Start Date End Date Lamar Fritz MD [address] [place] [address] PCP - General Internal Medicine 06/03/25 documented as of this encounter
--- OUTSIDE RECORDS SUMMARY | 2025-06-22 13:20 | XMS_ITS | Encounter Summary ---
Author Organization [facility] Address [address] [place] [address] Care Team Providers Care Director Online Marketing Name Role Phone Lamar Fritz MD Primary Care Provider [phone] Encounter Details Date Type Department Care Team (Late st Contact Info) Description 10/10/2024 Lab Requisition [facility] - Main Lab 299 [facility] [place] [address] Bernadine Florez MD [address] [place] [address] Other malaise; Unspecified atrial fibrillation (CMS/HCC V24, [...] PM EST Clinical Support [facility] Clinic - [address] [address] 08/05/2025 1:00 PM EST Appointment [facility] CT Scan [address] [place] [address] 12/21/2025 12:30 PM EDT Office Visit Internal Medicine - [address] [phone] Lamar Fritz MD [address] [place] [phone] documented as of this encounter Visit Diagnoses Diagnosis Other malaise Unspecified atrial fibrillation (CMS/HCC V24, CMS/HCC V28) documented in this encounter Additional Health Concerns Infection Onset Date Last Indicated Resolved Time Tuberculosis Rule-Out 01/12/2025 01/12/20252024 7:05 PM EDT documented as of this encounter Care Teams Director Online Marketing Relationship Specialty Start Date End Date Lamar Fritz MD [address] [place] [phone] PCP - General Internal Medicine 06/03/25 documented as of this encounter
--- OUTSIDE RECORDS SUMMARY | 2025-06-22 13:20 | XMS_ITS | Encounter Summary ---
Author Organization [facility] Address [address] [place] [address] Care Team Providers Care Women'S Apparel Salesperson Name Role Phone Lamar Fritz MD Primary Care Provider [phone] Encounter Details Date Type Department Care Team (Late st Contact Info) Description 10/10/2024 Lab Requisition [facility] - Main Lab 299 [facility] [place] [address] Bernadine Florez MD [address] [place] [address] Other malaise; Unspecified atrial fibrillation (CMS/HCC V24, [...] PM EST Clinical Support [facility]in Clinic - [address] [place] [address] 08/05/2025 1:00 PM EST Appointment [facility] CT Scan [address] [place] [address] 12/21/2025 12:30 PM EDT Office Visit Internal Medicine - [address] [phone] Lamar Fritz MD [address] [place] [address] documented as of this encounter Procedures Procedure [...] LAB COAGULATION METHOD 10/11/2024 11:33 AM EDT [facility] INR 1.4 LAB COAGULATION METHOD 10/11/2024 11:33 AM EDT [facility] Blood Venous blood specimen / Unknown Venipuncture / Unknown 10/11/2024 6:48 AM EDT 10/11/2024 10:24 AM EDT us Bernadine Florez MD LAB BLOOD ORDERABLES Final Resul t [facility] [address] [place] [address], [place] [phone] * (ABNORMAL) Basic metabolic panel (10/11/2024 6:48 AM EDT) Sodium 139 133 - 145 mmol/L LAB CHEMISTRY METHOD 10/11/2024 12:[address] [facility] Potassium 4.0 3.5 - 5.5 mmol/L LAB CHEMISTRY METHOD 10/11/2024 12:[address] [facility] Chloride 105 96 - 110 mmol/L LAB CHEMISTRY METHOD 10/11/2024 12:[address] [facility] CO2 24 21 - 32 mmol/L LAB CHEMISTRY METHOD 10/11/2024 12:[address] [facility] Anion Gap 10 3 - 11 LAB CHEMISTRY METHOD 10/11/2024 12:[address] [facility] Glucose 100 70 - 100 mg/dL LAB CHEMISTRY METHOD 10/11/2024 12:[address] [facility] BUN 18 5 - 25 mg/dL LAB CHEMISTRY METHOD 10/11/2024 12:[address] [facility] Creatinine 0.68(L) 0.70 - 1.30 mg/dL LAB CHEMISTRY METHOD 10/11/2024 12:[address] [facility] eGFR 98 >=60 mL/min/1. 73m2 LAB CHEMISTRY METHOD 10/11/2024 12:[address] [facility] Comment:Calculation based on the Chronic Kidney Disease Epidemiology Collaboration (CKD-EPI) equation refit without adjustment for race. BUN/Creatinine Ratio 26.5 LAB CHEMISTRY METHOD 10/11/2024 12:[address] [facility] Calcium 9.5 8.5 - 10.5 mg/dL LAB CHEMISTRY METHOD 10/11/2024 12:02 PM EDT [facility] Blood Venous blood specimen / Unknown Venipuncture / Unknown 10/11/2024 6:48 AM EDT 10/11/2024 10:23 AM EDT us Bernadine Florez MD LAB BLOOD ORDERABLES Final Resul t [facility] [address] [place] [address], * (ABNORMAL) Complete blood count (10/11/2024 6:48 AM EDT) WBC 5.7 4.8 - 10.8 K/mcL LAB HEMETOLOGY METHOD 10/11/2024 11:[address] [facility] RBC 4.00(L) 4.50 - 5.50 M/mcL LAB HEMETOLOGY METHOD 10/11/2024 11:[address] [facility] Hemoglobin 11.1(L) 13.5 - 17.5 g/dL LAB HEMETOLOGY METHOD 10/11/2024 11:[address] [facility] Hematocrit 34.7(L) 42.0 - 54.0 % LAB HEMETOLOGY METHOD 10/11/2024 11:[address] [facility] MCV 87.0 79.0 - 98.0 FL LAB HEMETOLOGY METHOD 10/11/2024 11:[address] [facility] MCH 27.8 27.0 - 32.0 pcg LAB HEMETOLOGY METHOD 10/11/2024 11:[address] [facility] MCHC 32.0 32.0 - 37.0 g/dL LAB HEMETOLOGY METHOD 10/11/2024 11:[address] [facility] RDW 13.7 11.0 - 15.0 % LAB HEMETOLOGY METHOD 10/11/2024 11:52 AM EDT [facility] Platelets 233 130 - 400 K/mcL LAB HEMETOLOGY METHOD 10/11/2024 11:52 AM EDT [facility] MPV 10.0 7.0 - 11.0 FL LAB HEMETOLOGY METHOD 10/11/2024 11:52 AM EDT [facility] NRBC 0.0 <1.0 % LAB HEMETOLOGY METHOD 10/11/2024 11:52 AM EDT [facility] NRBC Absolute 0.00 <0.10 K/mcL LAB HEMETOLOGY METHOD 10/11/2024 11:52 AM EDT [facility] Blood Venous blood specimen / Unknown Venipuncture / Unknown 10/11/2024 6:48 AM EDT 10/11/2024 10:23 AM EDT us Bernadine Florez MD LAB BLOOD ORDERABLES Final Resul t [facility] [address] [place] [address], documented in this encounter Visit Diagnoses Diagnosis Other malaise Unspecified atrial fibrillation (CMS/HCC V24, CMS/HCC V28) documented in this encounter Additional Health Concerns Infection Onset Date Last Indicated Resolved Time Tuberculosis Rule-Out 01/12/2025 01/12/20252024 7:05 PM EDT documented as of this encounter Care Teams Women'S Apparel Salesperson Relationship Specialty Start Date End Date Lamar Fritz MD [address] [place] [address] PCP - General Internal Medicine 06/03/25 documented as of this encounter
--- OUTSIDE RECORDS SUMMARY | 2025-06-22 13:20 | XMS_ITS | Encounter Summary ---
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 Chronic obstructive pulmonary disease, unspecified (CMS/HCC) COMPLETE BLOOD COUNT Routine 10/06/2024 8:29 AM EDT Essential (primary) hypertension 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 Chronic obstructive pulmonary disease, unspecified (CMS/HCC) BASIC METABOLIC PANEL Routine 10/06/2024 8:29 AM EDT Essential (primary) hypertension intermediate (current) use of anticoagulants Chronic obstructive pulmonary disease, unspecified (CMS/HCC) documented in this encounter Results * (ABNORMAL) Basic metabolic panel (10/06/2024 8:29 AM EDT) Sodium 137 133 - 145 mmol/L LAB CHEMISTRY METHOD 10/06/2024 1:22 PM EDT [facility] Potassium 4.4 3.5 - 5.5 mmol/L LAB CHEMISTRY METHOD 10/06/2024 1:22 PM T [facility] Chloride 106 96 - 110 mmol/L LAB CHEMISTRY METHOD 10/06/2024 1:22 PM [facility] CO2 21 21 - 32 mmol/L LAB CHEMISTRY METHOD 10/06/2024 1:22 PM [facility] Anion Gap 10 3 - 11 LAB CHEMISTRY METHOD 10/06/2024 1:22 PM [facility] Glucose 116(H) 70 - 100 mg/dL LAB CHEMISTRY METHOD 10/06/2024 1:22 PM [facility] BUN 12 5 - 25 mg/dL LAB CHEMISTRY METHOD 10/06/2024 1:22 PM [facility] Creatinine 0.84 0.70 - 1.30 mg/dL LAB CHEMISTRY METHOD 10/06/2024 1:22 PM [facility] eGFR 92 >=60 mL/min/1. 73m2 LAB CHEMISTRY METHOD 10/06/2024 1:22 PM T [facility] Comment:Calculation based on the Chronic Kidney Disease Epidemiology Collaboration (CKD-EPI) equation refit without adjustment for race. BUN/Creatinine Ratio 14.3 LAB CHEMISTRY METHOD 10/06/2024 1:22 PM [facility] Calcium 8.8 8.5 - 10.5 mg/dL LAB CHEMISTRY METHOD 10/06/2024 1:22 PM [facility] Blood Venous blood specimen / Unknown Venipuncture / Unknown 10/06/2024 8:29 AM EDT 10/06/2024 10:25 AM EDT us Bernadine Florez MD LAB BLOOD ORDERABLES Final Resul t [facility] [address] [place] [address], * (ABNORMAL) Prothrombin time with INR (10/06/2024 8:29 AM EDT) [facility] Protime 46.4(H) 10.6 - 13.9 sec LAB COAGULATION METHOD 10/06/2024 12:04 PM EDT [facility] INR 3.8 LAB COAGULATION METHOD 10/06/2024 12:04 PM EDT [facility] Blood Venous blood specimen / Unknown Venipuncture / Unknown 10/06/2024 8:29 AM EDT 10/06/2024 10:25 AM EDT us Bernadine Florez MD LAB BLOOD ORDERABLES Final Resul t [facility] [address] [place] [address], [place] [phone] * (ABNORMAL) Complete blood count (10/06/2024 8:29 AM EDT) [facility] WBC 7.8 4.8 - 10.8 K/mcL LAB HEMETOLOGY METHOD 10/06/2024 11:56 AM EDT [facility] RBC 4.30(L) 4.50 - 5.50 M/mcL LAB HEMETOLOGY METHOD 10/06/2024 11:56 AM [facility] Hemoglobin 12.2(L) 13.5 - 17.5 g/dL LAB HEMETOLOGY METHOD 10/06/2024 11:56 AM EDT [facility] Hematocrit 37.6(L) 42.0 - 54.0 % LAB HEMETOLOGY METHOD 10/06/2024 11:56 AM EDT [facility] MCV 87.4 79.0 - 98.0 FL LAB HEMETOLOGY METHOD 10/06[facility]24 [facility] MCH 28.4 27.0 - 32.0 pcg LAB HEMETOLOGY METHOD 10/06/2024 11:56 AM EDT [facility] MCHC 32.4 32.0 - 37.0 g/dL LAB HEMETOLOGY METHOD 10/06/2024 11:56 AM EDT [facility] RDW 14.1 11.0 - 15.0 % LAB HEMETOLOGY METHOD 10/06/2024 11:56 AM EDT [facility] Platelets 259 130 - 400 K/mcL LAB HEMETOLOGY METHOD 10/06/2024 11:56 AM EDT [facility] MPV 10.5 7.0 - 11.0 FL LAB HEMETOLOGY METHOD 10/06/2024 11:56 AM EDT [facility] NRBC 0.0 <1.0 % LAB HEMETOLOGY METHOD 10/06/2024 11:56 AM EDT [facility] NRBC Absolute 0.00 <0.10 K/mcL LAB HEMETOLOGY METHOD 10/06/2024 11:56 AM EDT [facility] Blood Venous blood specimen / Unknown Venipuncture / Unknown 10/06/2024 8:29 AM EDT 10/06/2024 10:25 AM EDT Bernadine Florez MD LAB BLOOD ORDERABLES Final Resul t [facility] [address] [place] [address], documented in this encounter Visit Diagnoses Diagnosis Essential (primary) hypertension Unspecified essential hypertension intermediate (current) use of anticoagulants Long-term (current) use of anticoagulants Chronic obstructive pulmonary disease, unspecified (CMS/HCC V24, CMS/HCC V28) documented in this encounter Additional Health Concerns Infection Onset Date Last Indicated Resolved Time Tuberculosis Rule-Out 01/12/2025 01/12/20252024 7:05 PM EDT documented as of this encounter Care Teams Lead Network Engineer Relationship Specialty Start Date End Date Lamar Fritz MD [address] [place] [phone] PCP - General Internal Medicine 06/03/25 documented as of this encounter
== END 2025-06-22 12:04 | disposition home or self-care (01) ==
LOC: HO.PMC 11:09
PROVIDERS: PCP Internal Medicine; Visit Provider Anesthesiology
DX: S32.010G Wedge compression fracture of first lumbar vertebra, subsequent encounter for fracture with delayed healing (principal); M47.816 Spondylosis without myelopathy or radiculopathy, lumbar region; G89.4 Chronic pain syndrome; M81.0 Age-related osteoporosis without current pathological fracture; M48.00 Spinal stenosis, site unspecified
CPT/HCPCS: 99214